=== PATIENT | female | born 1945 | race Caucasian/White ===

== ENCOUNTER 2017-09-18 15:30 | Outpatient (RCR) | payer MEDICARE, OTHER, SELFPAY ==
--- NOTE | 2017-08-14 11:21 | HP.PTEVAL_ITS ---
Patient's Visit Information ARSALAN SPENCE is a 72 year old F referred to Physical Therapy by Roscoe Kelley MD with a diagnosis of Right TKR. Date of Evaluation: 08/14/17 Physical Therapist: Joana Abreu - Visit Plan Frequency: 3x /Week Duration: 3 Weeks Plan: TKR 07/28- focus on ROM and functional mobility - Subjective Subjective: Right TKR 07/28/[address] Kelley in [place]- home after surgery- and had home health for 2 weeks. One story home with 5 stairs with HR. No problems getting in/out of the house. Has had someone but they had to go back to work. Fully I before surgery. Very active before surgery rode bike and did silver sneakers. Plans to get back to full mobility. Tried to decreased pain medication yesterday but it was painful. Pain is located in the back of the leg and along the medial side of the incision. Feels like its pulling apart. Worst: 6/10 Best: 0/10 Eases: laying down, elevating and ice. Sleep: no problems back sleeper- not elevating at night. Dully and achy pains- sharp pain with therapy. No N/T in the foot. Was having therapy every other day but she was doing it 3x a day. Ex: rocking chair, ankle pumps, hip abd, SAQ, heel slides, HR/TR, hip abduction standing, hip ext standing, squat, marching, sitting in a chair with her foot dangling and swing it. Saw Friday who took out stitches- happy with progress but wants her to bend more. PMHx: DM, HTN, glaucoma. Meds: Ultram, Percoset, Glimeprodie, Brimonidine, lisinopril, asprin, prilosec, Levemir flextouch Inj, inflatrol. - Objective Posture: FH, RS, Increased kyphosis. Gait: antalgic- decreased stance on the right LE- poor heel/toe pattern uses a straight cane in the left hand. HR/TR: able without incidence- does use UE A. Balance: SLS- able to lift hands off the table but replaces them back down- reports mild pain. Observation: well healing incision- no s/s of infection or redness (stitches out yesterday). Palpation: tender along medial and lateral joint line. The calf and knee feel tight. Functional Movement: able to swing foot onto bed without assistance. Stairs: asc/desc 8 non recip with 2 HR. ROM: 0-70 degrees of ROM with pain at end range flexion. Strength: ankle: 5/5, knee: 4/5 in available range, Hip: 4/ 5 throughout, Core: fair minus - Goals Goal 1:: Patient will be I with HEP and progression Goal Time Frame: 4-6 Weeks Goal 2:: Patient will ambulate >300 feet with a normalized gait pattern and LRD Goal Time Frame: 4-6 Weeks Goal 3:: Patient will asc/desc 8 stairs recip with 1 HR Goal Time Frame: 4-6 Weeks Goal 4:: Patient will demo 0-115 degrees of ROM in the right knee Goal Time Frame: 4-6 Weeks - Rehabilitation Potential Physical Therapy Diagnosis: Patient presents with hypmobility- she has decreased ROM, strength and muscular endurance leading to abnormal gait and decreased participation in ADL's. Rehabilitation Potential: Good - Anticipated Interventions Patient/Client Instruction: Educate patient on: Benefits of Fitness Program For the Purpose of:: To improve performance and independence with ADL's Therapeutic Exercise to Include: Strength training, Endurance training, Balance training, Agility training, Body mechanics, Postural training, Flexibilty training, Gait and locomotor training, Passive ROM, Active ROM For the Purpose of:: To improve muscle performance and motor function TENS: Yes Cryotherapy (ice pack, ice massage): Yes Thermo therapy (hot pack): Yes Ultrasound (thermal/non thermal): No For the Purpose of:: To decrease pain Thank you for the opportunity to evaluate your patient. For Medicare and Medicare HMO plans, please review the plan of care and approve it. It will need to be FAXED BACK to us at [phone] for Medicare purposes. Please let me know if there are questions or concerns regarding this plan of care. Physician Signature: Date:
--- NOTE | 2017-09-12 11:56 | HP.PTREVAL_ITS ---
Roscoe Kelley MD, It has been my pleasure to treat ARSALAN SPENCE over the last 10 visits for Right TKR. Please see the progress note below for an update on the physical therapy plan of care! Subjective: Patient reports that the aches comes and go and night is the worse and depends on activity. Saw Dr. Hall took x-rays and everything looked great. MD wants her to get outside and walk. Still swells on her and she expects this. Feels that she is 75% better. Objective/Function: Posture: FH, RS. Gait: mod antalgic- decreased lyla. ROM: 0-105 degrees. Stairs: asc/desc 8 recip with 1 HR. Strength: 5/5 throughout Plan Plan: 1 follow up visit with Marylin for I HEP in the gym for babs garza Goals Goal 1:: Patient will be I with HEP and progression Goal Time Frame: 4-6 Weeks Goal 2:: Patient will ambulate >300 feet with a normalized gait pattern and LRD Goal Time Frame: 4-6 Weeks Goal Progress: Progressing Goal 3:: Patient will asc/desc 8 stairs recip with 1 HR Goal Time Frame: 4-6 Weeks Goal Progress: Progressing Goal 4:: Patient will demo 0-115 degrees of ROM in the right knee Goal Time Frame: 4-6 Weeks Goal Progress: Progressing Anticipated Interventions Patient/Client Instruction: Educate patient on: Benefits of Fitness Program For the Purpose of:: To improve performance and independence with ADL's Therapeutic Exercise to Include: Strength training, Endurance training, Balance training, Agility training, Body mechanics, Postural training, Flexibilty training, Gait and locomotor training, Passive ROM, Active ROM For the Purpose of:: To improve muscle performance and motor function TENS: Yes Cryotherapy (ice pack, ice massage): Yes Thermo therapy (hot pack): Yes Ultrasound (thermal/non thermal): No For the Purpose of:: To decrease pain Please do not hesitate to contact me at [phone] by phone or Fax: if you have questions or concerns regarding this new plan of care! Sincerely, Joana Abreu
--- NOTE | 2017-12-15 10:41 | HP.PTDCSUM ---
HP - PT D/C Summary It has been my pleasure to treat ARSALAN SPENCE under orders from Roscoe Kelley MD, for the diagnosis of Right TKR for a total of 11 visit(s). Discharge Date: Please see the following information for a summary of their discharge status. - Subjective Subjective: pt came early to session today. - Pain right knee Pain Intensity (Out of 10): 0 - Overall Improvement % Improvement: 75 - Objective Objective/Function: Posture: FH, RS. Gait: mod antalgic- decreased lyla. ROM: 0-105 degrees. Stairs: asc/desc 8 recip with 1 HR. Strength: 5/5 throughout - Goals Goal 1:: Patient will be I with HEP and progression Goal 2:: Patient will ambulate >300 feet with a normalized gait pattern and LRD Goal Progress: Progressing Goal 3:: Patient will asc/desc 8 stairs recip with 1 HR Goal Progress: Progressing Goal 4:: Patient will demo 0-115 degrees of ROM in the right knee Goal Progress: Progressing - Plan Plan: pt indep. w/ gym program per POC. - D/C Information If there are questions or concerns regarding this patient's physical therapy, please feel free to call me at [phone]. Thank you for the referral of this patient. Sincerely, Joana Abreu
== END 2017-09-18 19:00 | disposition home or self-care (01) ==
LOC: PT 15:30
PROVIDERS: Family Provider Family Medicine; PCP Family Medicine; Visit Provider Orthopaedic Surgery Sports Medicine
DX: Z96.651 Presence of right artificial knee joint (principal)
CPT/HCPCS: 97110; 97161; 97530; G8978; G8979

== ENCOUNTER → 2017-11-20 10:39 | Outpatient (CLI) | payer MEDICARE, OTHER, SELFPAY ==
--- NOTE | 2017-11-20 10:42 | HPBI_ITS ---
MAMMOGRAPHY - BILATERAL SCREENING REASON FOR EXAM: Female, 72 years old. Routine annual screening examination. PERTINENT HISTORY: Aunt with breast cancer. TECHNIQUE: Digital bilateral breast chava (3D mammographic acquisition) in the CC and MLO projections. 2-D mediolateral oblique (MLO) and craniocaudad (CC) views of both breasts were obtained. CAD: Full Field Digital Mammography with Computer Added Detection was performed. COMPARISON: Comparison is made with prior study dated November 12, 2016 and October 10, 2015. FINDINGS: Breast Composition: There are scattered areas of fibroglandular density. There are no dominant masses or suspicious calcifications. Stable scattered calcifications in the left breast. No other significant abnormalities are identified. There has been no significant change since the prior study. HPBI/SCREENING MAMM (CAD), BILAT IMPRESSION: Stable bilateral screening mammogram. Yearly follow-up mammogram recommended. (A) ASSESSMENT CATEGORY: BIRADS Category 2: Benign. A letter regarding these results will be sent to the patient by the facility within 30 days. Approximately 10% of breast cancers are not detected by mammography. A normal mammogram should not delay biopsy of a clinically suspicious abnormality. [id number] Electronically Signed: Thomas Bhatt MD at 9:32 EDT Tel [phone], Service support ,
== END ==
PROVIDERS: Family Provider Family Medicine; PCP Family Medicine; Visit Provider Family Medicine
DX: Z12.31 Encounter for screening mammogram for malignant neoplasm of breast (principal)
CPT/HCPCS: 77063; 77067

== ENCOUNTER → 2018-06-23 12:58 | Outpatient (CLI) | payer MEDICARE, OTHER, SELFPAY ==
[2018-06-23 14:33] LABS: Hematocrit 38.5 % (37-47); Hemoglobin 12.1 g/dl (12.0-15.0); Mean Corp Hgb Conc 31.4 g/gl (32-36); Mean Corpuscular Hgb 27.8 pg (27.0-32.0); Mean Corpuscular Volume 88.5 fL (81-99); Mean Platelet Vol. 10.3 fl (6.2-12.0); Platelet Count 213 K/mm3 (150-450); RBC Distribution Width CV 14.2 % (11.6-14.6); RBC Distribution Width SD 46.1 fl (35.1-43.9); Red Blood Count 4.35 M/mm3 (4.2-5.4); White Blood Count 8.9 K/mm3 (4.4-11.0)
[2018-06-23 14:34] LABS: Scan Indicated on CBC? Y/N NO
[2018-06-23 14:47] LABS: ALB/GLOB Ratio 0.9 RATIO (0.9-2.4); AST(SGOT) 9 U/L (15-37); Alanine Aminotransfer ALT/SGPT 16 U/L (13-56); Albumin, Serum 3.5 g/dL (3.2-5.0); Alkaline Phosphatase 69 U/L (45-117); Anion Gap 7 (5-15); BUN 9 mg/dL (7-18); BUN/Creat Ratio 12.7 RATIO (10-20); Calcium,Total 8.9 mg/dL (8.5-10.1); Chloride 103 mmol/L (98-107); Creatinine, Serum 0.71 mg/dL (0.55-1.02); EST Glomerular Filtration Rate 86 mL/min (>60); Est Glom Filt Rate - Afr Amer 104 mL/min (>60); Globulin 3.7 g/dL (2.2-4.2); Glucose 130 mg/dL (74-106); Protein, Total 7.2 g/dL (6.4-8.2); Sodium Level 140 mmol/L (136-145)
== END ==
PROVIDERS: Family Provider Family Medicine; PCP Family Medicine; Referring Provider Family Medicine; Visit Provider Family Medicine
DX: M79.10 Myalgia, unspecified site (principal)
CPT/HCPCS: 36415; 80053; 85027

== ENCOUNTER 2018-08-28 10:30 | Outpatient (RCR) | payer MEDICARE, OTHER, SELFPAY ==
--- NOTE | 2018-07-10 15:44 | HP.PTEVAL_ITS ---
Patient's Visit Information ARSALAN WARNER is a 72 year old F referred to Physical Therapy by Ilia Espinosa MD with a diagnosis of L > R Adhesive Capsulitis. Date of Evaluation: 07/10/18 Physical Therapist: Han Guadarrama - Visit Plan Frequency: 1-2x /Week Duration: 6 Weeks - Subjective Subjective: Mrs. Warner is a pleasant 72 retiree who was referred to our care with a dx of left adhesive capsulitis. She states that is started about 6 m onths ago. She has seen a local chiropractor, accupunture and massage with no change in symptoms. - Pain Left Shoulder Pain Intensity (Out of 10): 6 Pain Intensity Range: 3, 6 Comment: Depends on position of shoulder - Objective MRs Warner presents in a somewhat guarded poistion as holding her purse increases pain. She had a cortisteroid injection in her right shoulder. L PROM 15 ext rotation, internal PSIS, shd flexion 140 abd = 120. MMT. L 8.7 /12 int ext. R 7.1/11 int ext generally lower than expected for a patient her age. L DTR dimished at bicep and bradioradialis. Cervical rotation ROM decreased 50%. Rotation and over pressure does not increase pain in bicep region. PMHX of cervical arthritis and R knee replacement which is clicking and giving her pain while walking. - Goals Goal 1:: Improve ROM by 10% within 2 weeks Goal Time Frame: 2 Weeks Goal 2:: Decrease resting pain to 3/10 Goal Time Frame: 2 Weeks Goal 3:: Start a light scapular strengtheing program Goal Time Frame: 6-8 Weeks - Rehabilitation Potential Physical Therapy Diagnosis: L Ad Cap Rehabilitation Potential: Good - Anticipated Interventions Patient/Client Instruction: Educate patient on: Condition, Plan of Care For the Purpose of:: To decrease pain, To increase ROM Therapeutic Exercise to Include: Strength training, Coordination, Scapular Strength/Stabilization For the Purpose of:: To decrease pain, To increase ROM, To improve muscle performance and motor function Manual Therapy Techniques to Include: Massage, Mobilization, Manipulation, Passive ROM For the Purpose of:: To decrease pain, To increase ROM, To increase flexibility/ROM, To improve endurance Ultrasound (thermal/non thermal): Yes For the Purpose of:: To decrease pain, To decrease swelling/inflammation, To increase ROM Thank you for the opportunity to evaluate your patient. For Medicare and Medicare HMO plans, please review the plan of care and approve it. It will need to be FAXED BACK to us at [phone] for Medicare purposes. Please let me know if there are questions or concerns regarding this plan of care. Physician Signature: Date:
--- NOTE | 2018-08-28 12:04 | HP.PTDCSUM ---
HP - PT D/C Summary It has been my pleasure to treat REVA SPENCE under orders from Ilia Espinosa MD, for the diagnosis of L > R Adhesive Capsulitis for a total of 13 visit(s). Discharge Date: 08/28/18 Please see the following information for a summary of their discharge status. - Subjective Subjective: I'm heading to [place] for the next couple of months. - Pain Left Shoulder Pain Intensity (Out of 10): 0 Right Shoulder Pain Intensity (Out of 10): 0 - Overall Improvement % Improvement: 80 - Objective Objective/Function: R/L Shd Flexion 166 170. R/L Abduction 170 158. R/L Ext 72 55. int r T4 T5. R/L Int - Goals Goal 1:: Improve ROM by 10% within 2 weeks Goal Progress: Goal Met Goal 2:: Decrease resting pain to 3/10 Goal 3:: Start a light scapular strengtheing program Goal Progress: Progressing - Plan Plan: Reva progressed well for her bilateral frozen shoulder. She has overly from her neck with DDD but traction has helped ischarge - D/C Information Discharge Comments: I asked Reva to reschedule with Dr Espinosa if her shoulder bother her when she comes back from [place]. If the pain is below her elbow then perhaps Dr alexx duque would be a better choice due DDD in neck If there are questions or concerns regarding this patient's physical therapy, please feel free to call me at [phone]. Thank you for the referral of this patient. Sincerely, Han Guadarrama, PT, JONE, SCS, CSCS
== END 2018-08-28 19:00 | disposition home or self-care (01) ==
LOC: PT 10:30
PROVIDERS: Family Provider Family Medicine; PCP Family Medicine; Referring Provider Orthopaedic Surgery; Visit Provider Orthopaedic Surgery
DX: M75.02 Adhesive capsulitis of left shoulder (principal)
CPT/HCPCS: 97012; 97035; 97110; 97140; 97161; 97164; G8981; G8982

== ENCOUNTER → 2019-02-02 16:41 | Outpatient (CLI) | payer MEDICARE, OTHER, SELFPAY ==
[2019-02-02 16:54] LABS: Bacteria 0 SEEN /hpf (None Seen); Mucous, Urine 0 SEEN /hpf (<or=2+)
[2019-02-02 17:42] LABS: Color, Urine Yellow (Yellow); Glucose, Dipstick 1000 mg/dl (Normal); Ketone-Dipstick 5 mg/dl (Negative); Leukocyte Esterase-Dipstick 500 /ul (Negative); Nitrite-Dipstick Negative (Negative); Occult Blood-Urine 150 /ul (Negative); Protein-Dipstick 15 mg/dl (Negative); Urine Bilirubin Dipstick Negative (Negative); Urine Clarity Cloudy (Clear); Urine Urobilinogen Normal (Normal)
[2019-02-02 19:31] LABS: Hyaline Cast 0-5 SEEN /lpf (0-5)
[2019-02-02 19:33] LABS: Calcium Oxalate Crystals Ur 1+ /hpf (<or=2+); White Blood Cells 50-100 SEEN /hpf (0-5)
[2019-02-02 19:34] LABS: Red Blood Cells-Urine 0-5 SEEN /hpf (0-5); Squamous Epithelial Cells - UA 0-5 SEEN /hpf (5-10)
== END ==
PROVIDERS: Family Provider Family Medicine; PCP Family Medicine; Referring Provider Nurse Practitioner Family; Visit Provider Nurse Practitioner Family
DX: N30.20 Other chronic cystitis without hematuria (principal)
CPT/HCPCS: 81001

== ENCOUNTER → 2019-02-16 14:29 | Outpatient (CLI) | payer MEDICARE, OTHER, SELFPAY ==
--- NOTE | 2019-02-16 14:33 | BI_ITS ---
MAMMOGRAPHY - BILATERAL SCREENING REASON FOR EXAM: Female, 73 years old. Routine annual screening examination. PERTINENT HISTORY: Aunt with breast cancer. TECHNIQUE: Digital bilateral breast miguel (3D mammographic acquisition) in the CC and MLO projections. 2-D mediolateral oblique (MLO) and craniocaudad (CC) views of both breasts were obtained. CAD: Full Field Digital Mammography with Computer Added Detection was performed. COMPARISON: Comparison is made with prior study November 20, 2017 and November 12, 2016. FINDINGS: Breast Composition: There are scattered areas of fibroglandular density. There are no dominant masses or suspicious calcifications. Stable scattered calcifications in the left breast. No other significant abnormalities are identified. There has been no significant change since the prior study. BI/SCREEN MAMM (CAD) W/MIGUEL BILAT IMPRESSION: Stable bilateral screening mammogram. Yearly follow-up mammogram recommended. (A) ASSESSMENT CATEGORY: BIRADS Category 2: Benign. A letter regarding these results will be sent to the patient by the facility within 30 days. Approximately 10% of breast cancers are not detected by mammography. A normal mammogram should not delay biopsy of a clinically suspicious abnormality. [id number] Electronically Signed: Thomas Bhatt, at 15:49 EDT , Service support ,
== END ==
PROVIDERS: Family Provider Family Medicine; PCP Family Medicine; Referring Provider Specialist; Visit Provider Specialist
DX: Z12.31 Encounter for screening mammogram for malignant neoplasm of breast (principal)
CPT/HCPCS: 77063; 77067

== ENCOUNTER → 2019-02-17 09:58 | Outpatient (CLI) | payer MEDICARE, OTHER, SELFPAY ==
--- NOTE | 2019-02-17 10:05 | RAD_ITS ---
STUDY: X-RAY - ABDOMEN/PELVIS REASON FOR EXAM: Female, 73 years old. Study of kidney stone. TECHNIQUE: Single AP view of the abdomen / pelvis. COMPARISON: None. FINDINGS: Normal visualized lung bases. There is an unremarkable bowel gas pattern. The visualized liver, spleen and kidneys are grossly normal in size. There is a left-sided pelvic calcification likely representing phlebolith. Stone in the distal ureter is doubtful. Otherwise no demonstrated abnormal calcifications in the expected courses of the ureters. There are diffuse degenerative changes of the visualized lumbar spine. RAD/Abdomen Single View IMPRESSION: Nonspecific gas pattern. Electronically Signed: Florian Rodriguez MD at 8:26 EDT Tel , Service support ,
== END ==
PROVIDERS: Family Provider Family Medicine; PCP Family Medicine; Referring Provider Nurse Practitioner Adult Health; Visit Provider Nurse Practitioner Adult Health
DX: N20.0 Calculus of kidney (principal); N30.20 Other chronic cystitis without hematuria; R31.9 Hematuria, unspecified
CPT/HCPCS: 74018; 87086

== ENCOUNTER → 2019-03-03 07:56 | Outpatient (CLI) | payer MEDICARE, OTHER, SELFPAY ==
--- NOTE | 2019-03-03 07:58 | CT_ITS ---
STUDY: CT ABDOMEN AND PELVIS WITH CONTRAST REASON FOR EXAM: Female, 73 years old. RADIATION DOSAGE (If Supplied By Facility): CTDIvol = ( 18.41 ) mGy, DLP = ( 1042.91 ) mGycm TECHNIQUE: Transaxial images were obtained from the dome of the diaphragm to the symphysis pubis without oral contrast. 100 IV Isovue 300 was administered. Sagittal and coronal images were reconstructed. Individualized dose optimization techniques were used for this CT. COMPARISON: July 20, 2015. FINDINGS: The visualized lung bases are unremarkable. The visualized portions of the heart are within normal limits. Normal liver. Normal gallbladder and extrahepatic biliary system. Normal spleen. Normal pancreas. Normal bilateral adrenal glands. Normal right kidney except to note tiny calcification upper calyx this is not obstructing it is new since the previous examination.. Normal left kidney: The previously described the cortical cyst on the right left side please did not change significantly since the previous examination and it is benign looking minimal calcification noted. Normal visualized stomach. Normal small intestine. Normal colon. The appendix is visualized and appears normal. Normal abdominal aorta. Normal inferior vena cava. Normal retroperitoneum. Normal urinary bladder. Normal abdominal wall. Severe degenerative changes involving the spine. CT/Abdomen/Pelvis WITH Contrast IMPRESSION: Tiny calcification upper aspect of the right kidney new finding since July 20, 2015. No significant change in the small cortical cyst left kidney Electronically Signed: Elio Denny, at 9:07 EDT Tel , Service support ,
[2019-03-03 08:11] LABS: CREATININE FINGERSTICK 0.8 mg/dL (0.55-1.02)
== END ==
PROVIDERS: Family Provider Family Medicine; PCP Family Medicine; Referring Provider Urology; Visit Provider Urology
DX: N28.1 Cyst of kidney, acquired (principal)
CPT/HCPCS: 74177; Q9967

== ENCOUNTER → 2019-06-10 17:17 | Outpatient (CLI) | payer MEDICARE, OTHER, SELFPAY | PROVIDERS: Family Provider Family Medicine; PCP Family Medicine | DX: N30.20 Other chronic cystitis without hematuria (principal) | CPT/HCPCS: 87077; 87086; 87088; 87186 ==

== ENCOUNTER → 2019-06-28 10:55 | Outpatient (CLI) | payer MEDICARE, OTHER, SELFPAY ==
[2019-06-26 15:39] VITALS: BMI 29.5
== END ==
PROVIDERS: Family Provider Family Medicine; PCP Family Medicine; Visit Provider Nurse Practitioner Adult Health
DX: N39.0 Urinary tract infection, site not specified (principal)
CPT/HCPCS: 87086; 87088; 87186

== ENCOUNTER → 2019-07-09 07:03 | Outpatient (CLI) | payer MEDICARE, OTHER, SELFPAY ==
[2019-06-26 15:39] VITALS: BMI 29.5
--- NOTE | 2019-07-09 07:07 | CT_ITS ---
STUDY: CT ABDOMEN AND PELVIS WITH CONTRAST REASON FOR EXAM: Female, 73 years old. Lower left abdominal pain. History of recurrent UTI. RADIATION DOSAGE (If Supplied By Facility): CTDIvol = ( 15.73 ) mGy, DLP = ( 1137.86 ) mGycm TECHNIQUE: Transaxial images were obtained from the dome of the diaphragm to the symphysis pubis with oral contrast. IV/Oral Isovue 300 100CC was administered. Sagittal and coronal images were reconstructed. Individualized dose optimization techniques were used for this CT. COMPARISON: Comparison is made with prior study dated March 03, 2019. FINDINGS: Minimal degree of increased markings at the lung bases suggestive of a mild scarring. The visualized portions of the heart are within normal limits. There is decreased attenuation of the liver consistent with steatosis. The patient is status post cholecystectomy. There are multiple benign calcified granulomata of the spleen. Normal pancreas. Normal bilateral adrenal glands. 1 cm cyst in the upper lateral aspect of the right kidney. Stable nonobstructive right intrarenal calculi. 2.1 cm cyst in the medial midportion of the left kidney. Normal visualized stomach. Normal small intestine. Diverticulosis of the right hemicolon. There are multiple colonic diverticula consistent with diverticulosis. The appendix is visualized and appears normal. There is scattered atherosclerotic calcification of the abdominal aorta, without a demonstrated aneurysm. Normal inferior vena cava. Normal retroperitoneum. Normal urinary bladder. There is absence of the uterus consistent with a prior hysterectomy. Normal abdominal wall. There are diffuse degenerative changes of the visualized lumbar spine. Straightening of the normal lumbar lordosis. CT/Abdomen/Pelvis WITH Contrast IMPRESSION: Diverticulosis of the sigmoid colon as well as the right hemicolon. Fatty infiltration of the liver. Electronically Signed: Thomas Bhatt, at 13:42 EDT , Service support ,
[2019-07-09 07:25] LABS: CREATININE FINGERSTICK 0.9 mg/dL (0.55-1.02)
== END ==
PROVIDERS: Family Provider Family Medicine; PCP Family Medicine; Referring Provider Urology; Visit Provider Urology
DX: N39.0 Urinary tract infection, site not specified (principal); K57.92 Diverticulitis of intestine, part unspecified, without perforation or abscess without bleeding; R10.9 Unspecified abdominal pain
CPT/HCPCS: 74177; Q9967

== ENCOUNTER → 2020-02-21 13:37 | Outpatient (CLI) | payer MEDICARE, OTHER, SELFPAY ==
[2019-08-24 08:16] VITALS: BMI 29.5
--- NOTE | 2020-02-21 13:40 | BI_ITS ---
MAMMOGRAPHY - BILATERAL SCREENING REASON FOR EXAM: Female, 74 years old. Routine annual screening examination. PERTINENT HISTORY: Aunt with breast cancer. TECHNIQUE: Digital bilateral breast miguel (3D mammographic acquisition) in the CC and MLO projections. 2-D mediolateral oblique (MLO) and craniocaudad (CC) views of both breasts were obtained. CAD: Full Field Digital Mammography with Computer Added Detection was performed. COMPARISON: Comparison is made with prior examination dated February 16, 2019 and November 20, 2017. FINDINGS: Breast Composition: There are scattered areas of fibroglandular density. There are no dominant masses or suspicious calcifications. No other significant abnormalities are identified. There has been no significant change since the prior study. BI/SCREEN MAMM (CAD) W/MIGUEL BILAT IMPRESSION: Stable bilateral screening mammogram. Yearly follow-up mammogram recommended. (A) ASSESSMENT CATEGORY: BIRADS Category 1: Negative. A letter regarding these results will be sent to the patient by the facility within 30 days. Approximately 10% of breast cancers are not detected by mammography. A normal mammogram should not delay biopsy of a clinically suspicious abnormality. [id number] Electronically Signed: Thomas Bhatt, at 14:34 EDT , Service support ,
== END ==
PROVIDERS: PCP Family Medicine; Referring Provider Family Medicine; Visit Provider Family Medicine
DX: Z12.31 Encounter for screening mammogram for malignant neoplasm of breast (principal)
CPT/HCPCS: 77063; 77067

== ENCOUNTER → 2020-05-11 10:02 | Outpatient (CLI) | payer MEDICARE, OTHER, SELFPAY ==
[2019-08-24 08:16] VITALS: BMI 29.5
[2020-05-11 11:16] LABS: AUTO B FLUID DILUENT BKGD CT WBC <0.1 RBC <0.01 (W<.1,R<.01); Appearance /Synovial Fluid Sl Cl (CLEAR); Color / Synovial Fluid Straw (Pale Yellow); Source / Synovial Fluid RIGHT KNEE; Viscosity / Synovial Fluid Mod. Viscous (HIGH)
[2020-05-11 11:18] LABS: Synovial Fld Mononuclear WBC # 3.655 10^3/ul; Synovial Fld Mononuclear WBC % 16.3 %; Synovial Fld Polynuclear WBC % 83.7 %
[2020-05-11 12:24] LABS: Body Fluid QC Type(s) BF1Q; Lymph 5 %; Monocyte /Synovial Fluid 5 %; Neutrophil 89 % (0-25)
[2020-05-11 12:25] LABS: Other Cell /Synovial Fluid 1 %
[2020-05-12 12:30] LABS: Pathologist Comment Reviewed
== END ==
PROVIDERS: PCP Family Medicine; Referring Provider Specialist; Visit Provider Specialist
DX: Z96.651 Presence of right artificial knee joint (principal)
CPT/HCPCS: 87015; 87070; 87075; 87101; 87116; 87205; 87206; 89050; 89051

== ENCOUNTER → 2020-06-22 15:46 | Outpatient (CLI) | payer MEDICARE, OTHER, SELFPAY ==
[2019-08-24 08:16] VITALS: BMI 29.5
== END ==
PROVIDERS: PCP Family Medicine; Referring Provider Nurse Practitioner Adult Health; Visit Provider Nurse Practitioner Adult Health
DX: N30.20 Other chronic cystitis without hematuria (principal)
CPT/HCPCS: 87086; 87088

== ENCOUNTER 2020-06-28 09:49 | Inpatient (IN) | payer MEDICARE, OTHER, SELFPAY ==
[2019-08-24 08:16] VITALS: BMI 29.5
--- NOTE | 2020-06-16 16:58 | HP.PCM_ITS ---
History and Physical History and Physical Patient Name: Reva Warner : 1945 From: GEORGE LOPEZ NP DATE OF SURGERY: 06/28/2020 SCHEDULED PROCEDURE: Right knee removal total knee arthroplasty implants with placement of antibiotic spacer HISTORY OF PRESENT ILLNESS: Preoperative history and physical exam was performed on June 12, 2020. This is a 74-year-old female who underwent a right total knee replacement by Dr. Kelley in [place] in 2017. She has been experiencing ongoing right knee pain for approximately 3 years. She describes the pain as dull. The pain is 0 on a scale of 10 at best, 3 on a scale of 10 on average and 5 on a scale of 10 at worst. She reports stiffness and tightness in the right knee. The pain is incr eased with walking, stairs, sitting and getting in and out of the car. The patient reports clicking in the right knee. Previous conservative measures consisting of rest, physical therapy and a knee brace. When initially seen in our office on May 04, [address] Owen Mary an ESR and CRP were ordered and came back elevated. Later, she followed up with Dr. Oren Casillas who did an aspiration of the right knee. The aspiration was a positive Synovasure. The patient has a medical history pertinent for hypertension, type 2 diabetes mellitus, difficulty hearing and osteoporosis. She has a history of recurrent urinary tract infections. She denies chest pain, fevers, chills, shortness of breath, difficulty breathing or night sweats. The patient currently denies a urinary tract infection. Surgical clearance will be obtained from her primary care provider Dr. Quigley. After failing conservative measures and discussing treatment options with Dr. Oren Casillas the patient does wish to proceed with a right knee removal total knee arthroplasty implants to placement of an antibiotic spacer. REVIEW OF SYSTEMS: ROS: Const: Reports weight change, but denies change in appetite and fever. CV: Denies chest pain, heart murmur and irregular heartbeat. Resp: Denies cough, pneumonia, shortness of breath, tuberculosis and wheezing. GI: Reports constipation and heartburn, but denies diarrhea, nausea, rectal itching, bloody stools and vomiting. : Denies incontinence. Musculo: Reports gait disturbance, trouble walking and weakness, but denies pain. Skin: Denies Raynaud's, history of shingles and tattoo. Neuro: Reports ambulatory dysfunction but denies dizziness, numbness/tingling and tremor. Psych: Denies anxiety, insomnia and stress. Mau/Lymph: Denies anemia, bleeding/bruising tendency and past transfusion. Reviewed, no changes. PAST MEDICAL HISTORY: Advance Care Plan: Other Directive, POA Effective Date: 05/04/2020 Other Directive, LIVING WILL Effective Date: 05/04/2020 PMH: Medical Problems: Arthritis, Diabetes, Hard of Hearing, High Blood Pressure, Osteoporosis Repeated UTI Infection - (05/19/2020) FINISHED February Accidents: Other - (1967) fall on back locked Surgical Hx: Gallbladder - (1974) Dr. Tripathi Hysterectomy - (1979) Dr. Bridges Mastectomy - (1975) Dr. Bridges Tonsillectomy - (1949) Knee Arthroscopy LT Knee Replacement RT - (2016) Bal Idheasion - (1969) @[facility] Tubes Tied - (1975) Two FT Surgeries - @[facility] - (2002) Caterac Surgery - (2011) RT Eye - (2012) Anesthesia Complications: None Assistive Devices: Glasses, Hearing Aid, Cane, Brace Reviewed and updated. SOCIAL HISTORY: SH: Marital: .Occupation: Retired.Work Status: Retired.Hand Dominance: Right- handed. Personal Habits: Cigarette Use: Never Smoked Cigarettes.Smokeless Tobacco: Never Used Smokeless Tobacco.E-Cigarette Use: Never used.Alcohol: Denies use.Drug Use: Denies Use.Enjoy Exercising: Daily. Reviewed, no changes. VITALS: Ht: 66 Wt: 185lb 4oz Wt k.029 BMI: 29.9 BP: 160/60 Pulse: 67 Resp: 22 T: 97.6 T: 36.4C ALLERGIES: Sulfa Zoloft Mavik Benicar Zocor Janumet Januvaayush Bygamaliel Ciprofloxacin - hospitalized for 2 weeks due to this medication Metformin Attale Teauin Betaxolol Doxazosin MEDICATIONS: Glimepiride 4 mg 1 po qd, Hydrochlorothiazide 25 mg 1 po qd, Lisinopril 40 mg 1 po qd, Trimethoprim 100 mg 1 po qd, Triamcinolone Acetonide 0.1 % apply to spots on lower leg twice A day, Humalog Mix 50/50 Kwikpen (50-50) 100 Unit/ML inject 25 units subcutaneously once A day, Fish Oil 1200 mg 1 po bid, Oscal 500/200 D-3 500-200 MG-Unit 1 po qd, Probiotic 1 by mouth every day, Vitamin E 400 Unit 1 po qd, Vitamin D3 50 mcg (2000 Ut) 1 po qd, Prilosec OTC prn, Vitamin B12 TR 1000 mcg 1 po qd, Tylenol 325 mg 2 po 3 times daily as needed for pain, Azo Cranberry 250-30 mg 1 po qd, Acetaminophen Congestion And Pain 5-325 mg 325 by mouth twice daily, Brimonidine Tartrate 0.15 % twice daily, Vitamin D3 Gummies Adult 25 mcg (1000 Ut) takes 2 A day, Cranberry 400 mg take by mouth, Vitamin B- 12 1000 mcg/15ML once A day, Estrace 0.1 mg/gm twice weekly for recurrent UTI, Glimepiride 4 mg take one tablet by mouth twice daily, Fiasp 100 Unit/ML take 16 units AT breakfast, 14 units AT lunch and 20 units AT dinner, Acidophilus Lactobacillus take by mouth, Methenamine Hippurate 1 gm 1 by mouth twice a day, Willmar 3 fish oil 500 mg cap take one tablet 2 times A daily, Omeprazole Magnesium take by mouth as needed, Trimethoprim 100 mg take one tablet by mouth every day AT bedtime, Vitamin E 400 Unit 1/day PRE-OP EXAM: General appearance:NORMAL Other: Eyes: Conjunctivae and lids: NORMAL Pupils: ERR Ears, Nose, Mouth, and Throat: NORMAL Other: Inspection of lips, teeth and gums: NORMAL Other: Respiratory: Assessment of respiratory effort: NORMAL Other: Auscultation of lungs: clear to auscultation no wheezes, rhonchi or rales. Cardiovascular: Auscultation of heart: regular rate and rhythm, no murmurs, gallops or rubs. Gastrointestinal: Exam of abdomen: soft, nontender, nondistended bowel sounds present. Neurological: see below Psychiatric: Orientation to time, place and person: NORMAL Other: Mood and affect: NORMAL Other: PHYSICAL EXAMINATION: The patient ambulate with an antalgic gait. Previous incision is clean, dry and intact. No redness or increased warmth. Large effusion. Range of motion: Full extension to 105 flexion. Stable to varus and valgus stress testing. Minimal translation with anterior and posterior drawer testing. 1?2 mm of opening with varus and valgus stress testing. Sensation intact to light touch. IMAGING STUDIES: 3 views of right knee including AP, lateral and sunrise views obtained on May 04, 2020 reveal a cemented posterior stabilized total knee replacement without obvious loosening, failure or fractures. IMPRESSION: 1. Infected right artificial knee joint 2. Right knee effusion 3. Hypertension 4. Type 2 diabetes mellitus 5. Hard of hearing 6. Osteoporosis 7. History of recurrent urinary tract infections PLAN: Dr. Oren Casillas did discuss and review with the patient all treatment options including surgical versus nonsurgical. The patient does wish to proceed with the above-stated procedure. Potential risk, benefits and complications of the procedure were discussed in detail including but not limited to , infection, nerve and blood vessel damage, persistent pain, numbness, tingling, paresthesia, blood clot, pulmonary embolism and requirement for possible further surgery. The patient expressed full understanding and has no further questions for the doctor. The patient does agree to proceed with the above-stated procedure and has signed the surgery consent form. Discussed with the patient the risks associated with the COVID-19 virus including the risk of exposure while at the hospital. The patient was reassured local hospitals have low infection rates and taken all necessary precautions to limit patient exposure to COVID-19. Limiting the patient's time in the hospital may decrease their exposure to COVID-19. The patient was notified that we will need to comply with any screening or testing the hospital wishes to perform and that surgery may be delayed for any positive test results. History and physical dictated in chart. This dictation was created using voice recognition software. Phonetic and/or grammatical errors may exist. ___ I have re-examined the patient. There are no clinical changes since date of exam. ___ See progress notes for changes. ___ Dictated on admission Date: Time: Signature:
--- NOTE | 2020-06-21 13:42 | EKG12_ITS ---
Test Reason : PRE OP Blood Pressure : / mmHG Vent. Rate : 069 BPM Atrial Rate : 060 BPM P-R Int : 000 ms QRS Dur : 088 ms QT Int : 418 ms P-R-T Axes : 000 027 060 degrees QTc Int : 447 ms Sinus Rhythm with PAC's Otherwise normal ECG Confirmed by PRANAV BONNER, KETTY ([id number]), senior technical editor ANNI WOODRUFF ([id number]) on 06/26/2020 8:51:55 A M Referred By: Oren Casillas Confirmed By:GERSON ROCK MD
[2020-06-21 14:52] LABS: Magnesium 1.9 mg/dL (1.6-2.6)
[2020-06-28] VITALS (12 sets, daily range): BP systolic 96–148; BP diastolic 41–71; PULSE 56–66; RESP 16–18; TEMP 36.3–36.7; O2SAT 93–100; BMI 28.8; BMI 30.5
[2020-06-28] MEDS: Celecoxib 200 MG Capsule 400 MG PO (10:39)
[2020-06-28] MEDS: Gabapentin 600 MG Tablet PO (10:39)
[2020-06-28] MEDS: Acetaminophen 500 MG Tablet 1000 MG PO ×2 (10:39→21:14)
[2020-06-28] MEDS: Lactated Ringers 1,000 ML 999 ML IV (10:45)
[2020-06-28] MEDS: Insulin Lispro 100 UNIT/ML INSULN.PEN SC ×3 (10:49→22:41)
[2020-06-28] MEDS: Cefazolin 2 GM in 0.9% Normal Saline 100 ML IV (11:07)
[2020-06-28 11:11] LABS: Bedside Glucose 299 mg/dL (70-110)
[2020-06-28] MEDS: Vancomycin IV 1,000 MG/20 ML Vial 6000 MG OPERA.SITE (12:32)
[2020-06-28] MEDS: Cefazolin 1 GM/5 ML Vial 2 GM OPERA.SITE (12:32)
--- NOTE | 2020-06-28 13:04 | PCM.OPRPT ---
Report of Operation Date of Procedure: 06/28/20 Pre-Operative Diagnosis: Right knee periprosthetic joint infection Post-Operative Diagnosis: Right knee periprosthetic joint infection Surgery/Procedure Performed:: Right total knee removal with placement of cement spacer. Right knee placement of nonbiodegradable antibiotic delivery system Description of Surgical Findings:: Cement spacer placed. Patient had florid synovitis ornament stapler: Dontrell Melendrez Type of Anesthesia:: Spinal Anesthesiologist: Santiago Gutierrez Special Medications: 2 g Ancef, 1 g TXA at incision, 1 g TXA closure, 10 mg Decadron, joint cocktail (5 mg Duramorph, 30 mL of 0.5% Ropivicaine, 1000 units of epinephrine, 30 mg of Toradol). In addition we used antibiotics in the cement 4.8 g tobramycin, 6 g vancomycin and 2 g Ancef Specimen's removed: 3 separate specimens were sent to microbiology Estimated Blood Loss (mL): 50 mL Fluids Replaced: 800 mL crystalloid Description of Procedure: Implants used: Brief history operative indications: 74-year-old F with total knee replacement in [facility]. Patient demonstrated evidence of infection. After confirming infection we agreed to proceed with explant total knee replacement with placement of antibiotic spacer which had risks which include but not limited to blood loss, DVTs, PEs, nervous damage, infection, the risk of anesthesia. Patient demonstrate understanding was able to sign informed consent. Medical clearance was obtained. Procedure: On the date of procedure patient's R lower extremity was marked in the preoperative area. The patient was then taken back to the operating room where the patient was placed on the table in the supine position. All bony prominences were identified a well-padded. Anesthesia assumed control of the C-spine and airway and remained controlled throughout the remainder of the procedure. A tourniquet was placed on the R upper thigh and the leg was prepped in a sterile fashion. The surgeon then scrubbed at this time. Upon reentering the room R lower extremity was draped in a standard orthopedic fashion. A timeout was then called and everyone agreed upon the side, the site, the procedure to be performed, patient's identity and antibiotics given. An Esmarch bandage was used to exsanguinate the extremity and the tourniquet was placed up to 250 mmHg with the knee in flexion. A midline skin incision was made using the previous incision and extending it proximally and distally to identify normal tissue planes. Medial and lateral flaps were developed appropriate releases. The standard medial parapatellar arthrotomy was made and the patella was subluxed laterally. At this time an aggressive synovectomy was performed re-creating the medial gutter first, then the suprapatellar pouch than the lateral gutter. Once this was completed the knee was flexed up an osteotome was used to remove the tibial polyethylene. The remainder of the synovium was debrided. The standard deep MCL release was done and the patella scar pad was resected and lateral releases were performed. Next our attention was directed to the femur. Where flexible osteotomes and TPS saw were used to break up the implant cement interface. This was done both medially and laterally. After this a bone tamp was used to remove the femur component from the end of the bone. This was done with minimal bone loss. At this time attention was now directed towards the proximal tibia. Possible osteotome and TPS saw were then used to break up the proximal tibia implant interface and stacked osteotomes were used to remove the tibial implant. This was done with minimal bone loss. After this was done the patella was everted and removed. Cement mantle from the patella was removed with the bur as well as the pegs. Attention was directed towards the bone ends were all membrane was removed. Knee was flexed up an extra medullary guide was used to make a tibial cleanup cut. Once bone ends were cleaned, Our attention was then turned to the femoral and tibia where the intramedullary canals were reamed to 16 mm. Because we had removed a size 4 PS distal femur we elected to use the same implant. We also trialed a polyethylene. A 22 mm polyethylene was selected. We can only use a PS. Because of this we elected to cut off the post. Once we had trialed the final components were verified and opened, 6 liters of normal saline were irrigated throughout the joint under low-pressure lavage. Then the cement was mixed in a vacuum. While we are prepping the bone to dowels for both intramedullary canals were made using cement and a third of the antibiotics. These were ruled out so they can be placed on the tibial canal. Once the wound was properly irrigated and the dowels were cured they were placed on the mid intramedullary canal. Once this was done we then used a bur to score the back of the tibia polyethylene. Once this was completed cement was mixed for the tibia. The tibia was cemented into place. We held the tibia in place until the cement cured. Once this was done we mixed cement for the femur. Both second and third batches of cement had one third of the antibiotics in it. Once we mixed the third batch of cement the femur was impacted into place. Excess cement was removed. Knee was placed in extension. Cement was allowed to cure. Once the final components were placed 3-minute Betadine lavage performed followed by a chlorhexidine lavage was used and the wound was copiously irrigated with normal saline solution and the remainder of the periarticular injection was given. The wound was closed in a layer aguila fashion using #1 vicryl interrupted sutures for the arthrotomy, 2-0 interrupted Vicryl for the subcuticular layer and aimee for final skin closure. A sterile compressive dressing was then placed. The patient was then awakened from anesthesia, transferred to [facility] and transferred to the PACU for recovery. Post op plan DVT ppx: ASA 81mg BID, thigh high compression stockings Follow up: in office in 2 weeks for wound check PT: Will be toe-touch weightbearing no flexion for 2 weeks. Followed by partial weightbearing 50% with range of motion exercises started at that time. Infection: Infectious disease will be consulted. Will follow cultures to identify an organism. Infectious disease will manage antibiotics. My physician personal banking assistant was a vital part of this case. He was important in appropriate retraction during the case, and protection of soft tissues during bony cuts. His intimate knowledge of the case and my steps aided in safe and expedient completion of the procedure as well as appropriate position of the leg during the case. He was also vital in assisting with closure under my direct supervision. Grafts/Implants Used: Josh triathlon size 4 PS distal femur, 22 mm polyethylene - Complications No intraoperative complications - Admit VTE Documentation VTE Present on Admission: No VTE Mechan Device Prophylaxis: SCD's, Thigh High PAKO Hose VTE Pharm Prophylaxis ordered?: Yes
[2020-06-28 14:16] LABS: Bedside Glucose 181 mg/dL (70-110)
--- NOTE | 2020-06-28 14:30 | RAD_ITS ---
STUDY: X-RAY - RIGHT KNEE REASON FOR EXAM: Female, 74 years old. POST OP RIGHT TKA TECHNIQUE: 2 view(s) of the knee. COMPARISON: None. FINDINGS: The patient is status post total knee replacement. There is good alignment. Cement is seen in the distal femoral and proximal tibial shafts. Postoperative soft tissue changes. RAD/Knee 1 or 2 Views IMPRESSION: Status post total knee replacement. There is good alignment. Postoperative soft tissue changes. Electronically Signed: Thomas Bhatt, at 14:53 EDT , Service support ,
[2020-06-28] MEDS: Lactated Ringers 1,000 ML 125 ML IV ×3 (14:57→20:10)
[2020-06-28] MEDS: oxyCODONE 5 MG Tablet PO (18:09)
[2020-06-28] MEDS: Glimepiride 4 MG Tablet PO (18:11)
[2020-06-28] MEDS: Aspirin 81 MG TAB.CHEW PO (18:11)
[2020-06-28 18:20] LABS: Bedside Glucose 298 mg/dL (70-110)
--- NOTE | 2020-06-28 18:57 | PCM.CONS.GEN ---
Problem List (1) Infection of right knee Status: Acute (2) Chronic UTI (urinary tract infection) Status: Chronic (3) Essential (primary) hypertension Status: Chronic (4) Diabetes type 2, uncontrolled Status: Chronic Qualifiers: Glycemic state: with hyperglycemia Qualified Code(s): E11.65 - Type 2 diabetes mellitus with hyperglycemia Reason for Consult Date of Consultation: 06/28/20 Reason for Consultation: Medical management History of Present Illness: The patient is a 74 y/o F w/ PMHx: Chronic UTIs following w/ ID and Urology, Diabetes mellitus type II, HTN, GERD, OA w/p prior R TKR with unfortunate periprosthetic join infection who presents to the [facility] on 06/28/[address] Casillas for planned right total knee removal with placement of cement spacer and nonbiodegradable antibiotic delivery system with no perioperative events per discussion with patient. Upon evaluation she notes pain is currently controlled with recent morphine administration. She does report that following surgery she is does tend to have constipation but current regimen listed in initiated per orthopedic surgery tends to work for her she notes. Operative cultures pending and patient currently noted to be on Ancef and vancomycin. Consultation requested for medical management per orthopedic surgery. Past Medical History Past Medical History (Chronic Problems): Chronic Problems (Last Reviewed 08/24/19 @ 12:[address] Jeremy Harrison MD) Diabetes (Chronic) Chronic UTI (urinary tract infection) (Chronic) Essential (primary) hypertension (Chronic) Diabetes type 2, uncontrolled (Chronic) Medical History: Medical History (Last Reviewed 08/24/19 @ 12:[address] Jeremy Harrison MD) Chronic UTI (urinary tract infection) (Chronic) N39.0 Essential (primary) hypertension (Chronic) I10 Diabetes type 2, uncontrolled (Chronic) E11.65 Glaucoma H40.9 Allergies ciprofloxacin Allergy (Severe, Verified 06/28/20 10:22) impairment of motor skills epinephrine [From Xylocaine with Epinephrine] Allergy (Unknown, Verified 06/28/20 10:22) unknown lidocaine [From Xylocaine with Epinephrine] Allergy (Unknown, Verified 06/28/20 10:22) unknown Sulfa (Sulfonamide Antibiotics) Allergy (Unknown, Verified 06/28/20 10:22) unknown metformin Adverse Reaction (Intermediate, Verified 06/28/20 10:22) loose stool, bladder infections sitagliptin [From Janumet] Adverse Reaction (Intermediate, Verified 06/28/20 10:22) loose stool batroxobin Adverse Reaction (Unknown, Verified 06/28/20 10:22) unknown exenatide [From Byetta] Adverse Reaction (Unknown, Verified 06/28/20 10:22) unknown nizatidine [From Axid] Adverse Reaction (Unknown, Verified 06/28/20 10:22) unknown sertraline [From Zoloft] Adverse Reaction (Unknown, Verified 06/28/20 10:22) unknown simvastatin [From Zocor] Adverse Reaction (Unknown, Verified 06/28/20 10:22) unknown trandolapril [From Mavik] Adverse Reaction (Unknown, Verified 06/28/20 10:22) unknown Home Medications: Ambulatory Orders Medication Instructions Recorded hydrochlorothiazide 25 mg tablet 25 mg PO DAILY #30 tab 06/25/19 lisinopril 40 mg tablet 40 mg PO DAILY #90 tab 06/25/19 acetaminophen 325 mg capsule 325 mg PO BID PRN cap 07/20/19 calcium carbonate 500 mg (1,250 1 tab PO BID 07/20/19 mg)-vitamin D3 125 unit tablet cholecalciferol (vitamin D3) 50 2,000 unit PO DAILY 07/20/19 mcg (2,000 unit) capsule cranberry 400 mg capsule 2 cap PO DAILY 07/20/19 lactobacillus combination no.8 3 3,000 mmu cells PO BID 07/20/19 billion cell capsule omega 5-xga-imy-fish oil 1,200 mg 1 cap PO BID cap 07/20/19 (144 mg-216 mg) capsule omeprazole magnesium 20 mg 20 mg PO DAILY PRN 07/20/19 tablet,delayed release trimethoprim 100 mg tablet 100 mg PO Q12H 07/20/19 vitamin E (dl, acetate) 400 unit 400 unit PO DAILY 07/20/19 capsule glimepiride 4 mg tablet 4 mg PO BID #180 tab 08/24/19 insulin lispro protamine-lispro See Rx Instructions SC TID ml 08/24/19 100 unit/mL (50-50) subcutaneous pen Cyanocobalamin (Vitamin B-12) 1,000 mcg PO DAILY 06/14/20 [Vitamin B-12] Nitrofurantoin Macrocrystals 100 mg PO Q12 06/14/20 [Macrobid] Surgical History: Surgical History (Last Reviewed 08/24/19 @ 12:[address] Jeremy Harrison MD) History of tonsillectomy Z90.89 H/O tubal ligation Z98.51 History of cataract surgery Z98.49 bilateral History of cholecystectomy Z90.49 1975 History of tonsillectomy Z90.89 1950 Surgical History: - - Tonsillectomy, hysterectomy, bilateral tubal ligation, cataract surgery, cholecystectomy, left knee arthroscopic surgery, initial right total knee replacement, recent right total knee replacement removal with antibiotic spacer and biodegradable antibiotic delivery system. 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 Jeremy Harrison MD) Mother CVA (cerebral vascular accident) Aunt Breast cancer History Items: Heart Disease, Hypertension Paternal Family History: Family History (Last Reviewed 08/24/19 @ 12:[address] Jeremy Harrison MD) Mother CVA (cerebral vascular accident) Aunt Breast cancer History Items: - - Patient notes father passed secondary to complications from an aortic aneurysm while being repaired on the operating table. Review of Systems Constitutional: Reports: Weakness, Fatigue. Denies: Anorexia, Chills, Fever, Malaise, Weight Change HEENT: Denies: Head Aches, Sinus Congestion, Sinus Drainage Cardiovascular: Denies: Chest Pain, Palpitations Respiratory: Denies: Cough, Shortness of breath at rest, Sputum production Gastrointestinal: Denies: Abdominal Pain, Nausea, Vomiting Genitourinary: Denies: Dysuria Musculoskeletal: Reports: Joint Pain, Joint stiffness, Joint swelling, Joint Tenderness, Leg Pain Skin: Denies: Rash, Wounds Neurological: Denies: Numbness, Tingling, Focal weakness Psychiatric: Denies: Anxiety, Depression, Homicidal Ideations, Suicidal Ideations Hematologic/ Lymphatic: Denies: Easy Bruising, Easy Bleeding Subjective: Patient seated upright in the bedside chair, no acute distress, notes pain currently controlled. Objective: Physical Examination: General: awake, alert, oriented x 3 and cooperative, seated upright in the medical surgical bedside chair, no acute distress. Skin: normal color, turgor, no icterus, cyanosis, status post recent right total knee replacement removal with antibiotic spacer with delivery system,: System in place. HEENT: AT/NC, EOMI, PERRLA, mildly dry MM, no carotid bruits or JVD noted. Lungs: CTA bilaterally, moderate effort, mild decrease BL bases, no rales, ronchi or wheezing. Heart: Regular rate and rhythm; no gallop, rub audible. Abdomen: soft, NTTP, ND, normal BS, no HSM. Extremities: no cyanosis, clubbing, mild bilateral ankle edema, nonpitting, peripheral pulses intact, see skin. Neurological: patient awake, alert, oriented x 3; cognitive function intact; pupils equally reactive to light and accomodation; cranial nerves II-XII grossly normal, moving all 4 extremities although limited which is expected given recent right knee surgery, strength accordingly moderately global decreased. Psychiatric: affect appears normal, no acute evidence of depressive or anxiety feelings. - Physical Exam Vitals/I&O's: Vital Signs Temp Pulse Resp BP Pulse Ox 97.8 F 60 18 133/53 H 93 06/28/20 16:43 06/28/20 15:05 06/28/20 16:43 06/28/20 16:43 06/28/20 16:43 Oxygen Flow Rate (L/min) 6 Oxygen Delivery Method Room Air Weight: 189 lb 2.506 oz Body Mass Index (BMI) 30.5 Intake and Output for Last 24 Hours 06/26/20 06/27/20 06/28/20 23:59 23:59 23:59 Intake Total 1840.75 / 1840.75 Balance 1840.75 / 1840.75 Microbiology Past 72 Hours 06/28/20 Unknown Tissue - Knee Gram Stain - Final 06/28/20 Unknown Tissue - Knee Gram Stain - Final 06/28/20 Unknown Tissue - Knee Gram Stain - Final Laboratory Results 06/28/20 10:28: POC Glucose 299 H 06/28/20 14:09: POC Glucose 181 H 06/28/20 18:07: POC Glucose 298 H Current Medications Acetaminophen (Acetaminophen 500 Mg Tablet) 1,000 mg PO Q8 [facility] Albuterol Sulfate (Albuterol 2.5 Mg/3 Ml Vial.Neb.) 2.5 mg INHALATION Q2H PRN PRN PRN Reason: Dyspnea, wheezing Aspirin (Aspirin 81 Mg Tab.Chew) 81 mg PO BIDCM [facility] Last Admin: 06/28/20 18:11 Dose: 81 mg Documented by: Dextrose (Dextrose 50%-Water 25 Gm/50 Ml Disp.Syrin) 0 gm IV X1 PRN; Protocol PRN Reason: Hypoglycemia Enteral Nutritional Formula (Ensure Surgery 237 Ml Liquid) 237 ml PO TIDCM [facility] Last Admin: 06/28/20 18:09 Dose: Not Given Documented by: Famotidine (Famotidine 20 Mg Tablet) 20 mg PO DAILY [facility] Glimepiride ([facility] 4 Mg Tablet) [facility] Last Admin: 06/28/20 18:11 Dose: 4 mg Documented by: Glucagon (Glucagon 1 Mg/Ml Syringe) 1 mg IM .X1 PRN PRN Reason: Hypoglycemia Hydrochlorothiazide (Hydrochlorothiazide 25 Mg Tablet) 25 mg PO DAILY [facility] Lactated Ringer's () 1,000 mls @ 125 mls/hr IV .Q8H [facility] Stop: 06/28/20 19:59 Last Admin: 06/28/20 18:12 Dose: 125 mls/hr Documented by: Cefazolin Sodium () 1 gm in 50 mls @ 150 mls/hr IV Q8H [facility] Stop: 06/29/20 03:19 Vancomycin IV Pharmacy to Dose (1 ea/ Sodium Chloride) 500 mls @ 250 mls/hr IV X1 PRN; Protocol PRN Reason: Rx to Dose Vancomycin HCl 2,000 mg/ (Sodium Chloride) 540 mls @ 250 mls/hr IV X1 ONE Stop: 06/28/20 20:39 Last Admin: 06/28/20 18:11 Dose: 250 mls/hr Documented by: Insulin Human Lispro (Insulin Lispro 100 Unit/Ml Insuln.Pen) 8 unit SC BREAKFAST [facility] Insulin Human Lispro (Insulin Lispro 100 Unit/Ml Insuln.Pen) 7 unit SC LUNCH [facility] Insulin Human Lispro (Insulin Lispro 100 Unit/Ml Insuln.Pen) 10 unit SC DINNER [facility] Insulin Human Lispro (Insulin Lispro 100 Unit/Ml Insuln.Pen) 0 unit SC ACHS [facility]; Protocol Insulin Human NPH (Insulin Nph Human 100 Units/Ml Pen) 8 units SC BREAKFAST [facility] Insulin Human NPH (Insulin Nph Human 100 Units/Ml Pen) 7 units SC LUNCH [facility] Insulin Human NPH (Insulin Nph Human 100 Units/Ml Pen) 10 units SC SUPPER [facility] Lisinopril (Lisinopril 40 Mg Tablet) 40 mg PO DAILY [facility] Morphine Sulfate (Morphine 2 Mg/Ml Syringe) 2 - 4 mg IV Q2H PRN PRN PRN Reason: Pain Score 6-10 Morphine Sulfate (Morphine 4 Mg/Ml Syringe) 2 - 4 mg IV Q2H PRN PRN PRN Reason: Pain Score 6-10 Nitrofurantoin Macrocrystals (Nitrofurantoin Macrocrystals 100 Mg Capsule) 100 mg PO Q12 [facility] Ondansetron HCl (Ondansetron 4 Mg/2 Ml Vial) 4 mg IV Q8H PRN PRN PRN Reason: NAUSEA Oxycodone HCl (Oxycodone 5 Mg Tablet) 5 - 10 mg PO Q4H PRN PRN PRN Reason: Pain Score 4-10 Last Admin: 06/28/20 18:09 Dose: 10 mg Documented by: Pantoprazole Sodium (Pantoprazole Sodium 20 Mg Tablet) 20 mg PO DAILY PRN PRN Reason: HEARTBURN Promethazine HCl (Promethazine 25 Mg/Ml Syringe) 12.5 mg IM Q6H PRN PRN; Protocol PRN Reason: NAUSEA/VOMITING Senna/Docusate Sodium (Senna/Docusate Sodium 1 Tablet) 2 tablet PO BID [facility] Sodium Chloride (0.9% Saline Lock 10 Ml Syringe) 10 - 40 ml IV UD PRN PRN Reason: SALINE FLUSH Assessment/Plan All Active Problems (Last Reviewed 08/24/19 @ 12:[address] Jeremy Harrison MD) Infection of right knee (Acute) The patient is a 74 y/o F w/ PMHx: Chronic UTIs following w/ ID and Urology, Diabetes mellitus type II, HTN, GERD, OA w/p prior R TKR with unfortunate periprosthetic join infection who presents to the [facility] on 06/28/[address] Casillas for planned right total knee removal with placement of cement spacer. 1. Severe Osteoarthritis s/p R TKR w/ R Knee Periprosthetic Infection following: Failed conservative therapies and treatments, admitted per Dr. Hanson for planned right total knee replacement removal with placement of a cement spacer and nonbiodegradable antibiotic delivery system, post-operative pain management, antibiotic therapies as well as bowel regimen but if necessary may escalate bowel regimen as notes history of constipation following surgical interventions, DVT Prophylaxis, PT/OT/CM per Orthopedic surgery discretion. 2. Diabetes mellitus type II: Per orthopedic surgery continued on oral home regimen, continue home insulin regimen, will change patient from regular to ADA diet, accu checks w/ ISS. 3. GERD: We will continue on famotidine. 4. Hypertension: Continue home regimen including hydrochlorothiazide with hold as needed. 5. DVT prophylaxis: SCDs, aspirin 81 mg p.o. twice daily per orthopedic surgery discretion. Inpatient E&M: [id number] [place] [id number]
[2020-06-28 19:34] LABS: Anion Gap 9 (5-15); BUN 21 mg/dL (7-18); BUN/Creat Ratio 18.1 RATIO (10-20); Calcium,Total 8.8 mg/dL (8.5-10.1); Chloride 102 mmol/L (98-107); Creatinine, Serum 1.16 mg/dL (0.55-1.02); EST Glomerular Filtration Rate 48 mL/min (>60); Est Glom Filt Rate - Afr Amer 59 mL/min (>60); Estimated Creatinine Clearance 39.83 ml/min; Glucose 307 mg/dL (74-106); Magnesium 2.3 mg/dL (1.6-2.6); Potassium 4.3 mmol/L (3.5-5.1); Sodium Level 134 mmol/L (136-145)
--- NOTE | 2020-06-28 19:44 | PCM.RX.CS ---
Consult Pharmacy has been consulted to manage selected antiobiotic: Vancomycin Type of Consult: New start Labs: Sodium 134 mmol/L (136-145) L 06/28/20 19:12 Potassium 4.3 mmol/L (3.5-5.1) 06/28/20 19:12 Chloride 102 mmol/L (98-107) 06/28/20 19:12 Carbon Dioxide 23.0 mmol/L (21.0-32.0) 06/28/20 19:12 Anion Gap 9 (5-15) 06/28/20 19:12 BUN 21 mg/dL (7-18) H 06/28/20 19:12 Creatinine 1.16 mg/dL (0.55-1.02) H 06/28/20 19:12 Est GFR (MDRD) Af Amer 59 mL/min (>60) L 06/28/20 19:12 Est GFR (MDRD) Non-Af 48 mL/min (>60) L 06/28/20 19:12 BUN/Creatinine Ratio 18.1 RATIO (-) 06/28/20 19:12 Glucose 307 mg/dL (74-106) H 06/28/20 19:12 Microbiology: Microbiology 06/28/20 Unknown Tissue - Knee Gram Stain - Final 06/28/20 Unknown Tissue - Knee Gram Stain - Final 06/28/20 Unknown Tissue - Knee Gram Stain - Final 06/21/20 13:49 Swab (Method) Nasal Screen MRSA/MSSA - Final Weight used for dosin kg Estimated Creatinine Clearance: 40 Goal Trough: 15-20 mcg/mL Pharmacy Plan for Drug Dosing: Initial vanc dose 2000mg IV x1, 750mg IV q12h thereafter per policy with trough prior to 4th dose. Pharmacy Service will continue to monitor and adjust dosing as required. Follow-Up Labs: Trough Vancomycin - 06/30 @ 0915
--- NOTE | 2020-06-28 19:58 | NURSING ---
Rx notified unable to find 1900 dose of cefazolin
[2020-06-28] MEDS: Senna/Docusate Sodium 1 Tablet 2 TABLET PO (21:14)
[2020-06-28] MEDS: Nitrofurantoin Macrocrystals 100 MG Capsule PO (21:14)
[2020-06-28] MEDS: Cefazolin 1 GM/50 ML BAG IV (21:14)
[2020-06-28 22:45] LABS: Bedside Glucose 363 mg/dL (70-110)
[2020-06-29] VITALS (8 sets, daily range): BP systolic 111–134; BP diastolic 40–59; PULSE 56–90; RESP 18; TEMP 36.4–37.3; O2SAT 89–98
[2020-06-29] MEDS: Cefazolin 1 GM/50 ML BAG IV (02:56)
[2020-06-29] MEDS: Acetaminophen 500 MG Tablet 1000 MG PO ×3 (06:15→21:49)
[2020-06-29 07:12] LABS: Hematocrit 32.5 % (37-47); Hemoglobin 9.9 g/dL (12.0-15.0); Mean Corp Hgb Conc 30.5 g/dL (32-36); Mean Corpuscular Volume 91.8 fL (81-99); Mean Platelet Vol. 10.1 fl (6.2-12.0); Platelet Count 292 K/mm3 (150-450); RBC Distribution Width CV 14.1 % (11.6-14.6); RBC Distribution Width SD 47.7 fl (35.1-43.9); Red Blood Count 3.54 M/mm3 (4.2-5.4); White Blood Count 22.8 K/mm3 (4.4-11.0)
[2020-06-29 07:34] LABS: Anion Gap 8 (5-15); BUN 25 mg/dL (7-18); BUN/Creat Ratio 19.8 RATIO (10-20); Calcium,Total 8.6 mg/dL (8.5-10.1); Chloride 104 mmol/L (98-107); Creatinine, Serum 1.26 mg/dL (0.55-1.02); EST Glomerular Filtration Rate 44 mL/min (>60); Est Glom Filt Rate - Afr Amer 53 mL/min (>60); Estimated Creatinine Clearance 36.67 ml/min; Glucose 268 mg/dL (74-106); Potassium 4.3 mmol/L (3.5-5.1); Sodium Level 135 mmol/L (136-145)
--- NOTE | 2020-06-29 07:34 | PCM.PN.HOSP ---
Patient Problems: Active and Suspected Problems (Last Reviewed 08/24/19 @ 12:[address] Jeremy Harrison MD) Infection of right knee (Acute) Reason for Visit: Follow-up for periprosthetic joint infection. Objective: Seen and examined. Patient denies any chronic heart disease or lung disease. Heart rate and blood pressure are controlled. No fever or leukocytosis 22.8 thousand. Physical exam General: Alert, Oriented x3, Cooperative HEENT: Atraumatic, PERRLA, EOMI, Normocephalic Oral: No Gingival or Mucosal Lesions/ Ulcerations Neck: Supple, No JVD, Negative Carotid Bruits Lungs: Air entry equal in bilateral lung bases. No crepitation/rhonchi Cardiovascular: Regular rate, Regular Rhythm, Normal S1, Normal S2, No murmurs Abdomen: Bowel Sounds Present, Soft, Non Tender, Non-Distended : No renal angle tenderness. No suprapubic tenderness. Extremities: No edema, Capillary Refill Less than 3 Seconds Skin: No rashes, No breakdown Musculoskeletal: Right knee on immobilizer. Surgical dressing dry. No Tenderness to Palpation of other joints or Extremities Neurological: Cranial nerves II-XII grossly intact, Deep Tendon Reflexes 2+/4 and Symmetrical, Neuro grossly intact Psych/Mental Status: Normal Affect, Appropriate. Vitals/I&O's: Vital Signs Temp Pulse Resp BP Pulse Ox 97.5 F L 58 L 18 111/57 L 98 06/29/20 02:50 06/29/20 02:50 06/29/20 02:50 06/29/20 02:50 06/29/20 02:50 Oxygen Flow Rate (L/min) 2 Oxygen Delivery Method Nasal Cannula Weight: 189 lb 2.506 oz Body Mass Index (BMI) 30.5 Intake and Output for Last 24 Hours 06/27/20 06/28/20 06/29/20 23:59 23:59 23:59 Intake Total 3680.75 / 3680.75 1750 / 1750 Output Total 300 / 300 1550 / 1550 Balance 3380.75 / 3380.75 200 / 200 Microbiology Past 72 Hours 06/28/20 Unknown Tissue - Knee Gram Stain - Final 06/28/20 Unknown Tissue - Knee Gram Stain - Final 06/28/20 Unknown Tissue - Knee Gram Stain - Final Laboratory Results 06/28/20 10:28: POC Glucose 299 H 06/28/20 14:09: POC Glucose 181 H 06/28/20 18:07: POC Glucose 298 H 06/28/20 19:12: Sodium 134 L, Potassium 4.3, Chloride 102, Carbon Dioxide 23.0, Anion Gap 9, BUN 21 H, Creatinine 1.16 H, Estim Creat Clear Calc 39.83, Est GFR (MDRD) Af Amer 59 L, Est GFR (MDRD) Non-Af 48 L, BUN/Creatinine Ratio 18.1, Glucose 307 H, Calcium 8.8, Magnesium 2.3 06/28/20 22:39: POC Glucose 363 H 06/29/20 06:50: WBC 22.8 H, RBC 3.54 L, Hgb 9.9 L, Hct 32.5 L, MCV 91.8, MCH 28.0, MCHC 30.5 L, RDW Std Deviation 47.7 H, RDW Coeff of Rainer 14.1, Plt Count 292, MPV 10.1 06/29/20 06:50: Sodium Pending, Potassium Pending, Chloride Pending, Carbon Dioxide Pending, Anion Gap Pending, BUN Pending, Creatinine Pending, Est GFR (MDRD) Af Amer Pending, Est GFR (MDRD) Non-Af Pending, BUN/Creatinine Ratio Pending, Glucose Pending, Calcium Pending Current Medications Acetaminophen (Acetaminophen 500 Mg Tablet) 1,000 mg PO Q8 [facility] Last Admin: 06/29/20 06:15 Dose: 1,000 mg Documented by: Albuterol Sulfate (Albuterol 2.5 Mg/3 Ml Vial.Neb.) 2.5 mg INHALATION Q2H PRN PRN PRN Reason: Dyspnea, wheezing Aspirin (Aspirin 81 Mg Tab.Chew) 81 mg PO BIDCM [facility] Last Admin: 06/28/20 18:11 Dose: 81 mg Documented by: Dextrose (Dextrose 50%-Water 25 Gm/50 Ml Disp.Syrin) 0 gm IV X1 PRN; Protocol PRN Reason: Hypoglycemia Enteral Nutritional Formula (Ensure Surgery 237 Ml Liquid) 237 ml PO TIDCM [facility] Last Admin: 06/28/20 18:09 Dose: Not Given Documented by: Famotidine (Famotidine 20 Mg Tablet) 20 mg PO DAILY [facility] Gl[facility]piride ([facility] 4 Mg [facility]) [facility] Last Admin: 06/28/20 18:11 Dose: 4 mg Documented by: Glucagon (Glucagon 1 Mg/Ml Syringe) 1 mg IM .X1 PRN PRN Reason: Hypoglycemia Hydrochlorothiazide (Hydrochlorothiazide 25 Mg Tablet) 25 mg PO DAILY [facility] Vancomycin IV Pharmacy to Dose (1 ea/ Sodium Chloride) 500 mls @ 250 mls/hr IV X1 PRN; Protocol PRN Reason: Rx to Dose Vancomycin HCl 750 mg/ Sodium (Chloride) 265 mls @ 250 mls/hr IV Q12H [facility] Insulin Human Lispro (Insulin Lispro 100 Unit/Ml Insuln.Pen) 8 unit SC BREAKFAST [facility] Insulin Human Lispro (Insulin Lispro 100 Unit/Ml Insuln.Pen) 7 unit SC LUNCH [facility] Insulin Human Lispro (Insulin Lispro 100 Unit/Ml Insuln.Pen) 10 unit SC DINNER [facility] Insulin Human Lispro (Insulin Lispro 100 Unit/Ml Insuln.Pen) 0 unit SC [facility]; Protocol Last Admin: 06/28/20 22:41 Dose: 6 u Documented by: Insulin Human NPH (Insulin Nph Human 100 Units/Ml Pen) 8 units SC BREAKFAST [facility] Insulin Human NPH (Insulin Nph Human 100 Units/Ml Pen) 7 units SC LUNCH [facility] Insulin Human NPH (Insulin Nph Human 100 Units/Ml Pen) 10 units SC SUPPER [facility] Lisinopril (Lisinopril 40 Mg Tablet) 40 mg PO DAILY [facility] Morphine Sulfate (Morphine 2 Mg/Ml Syringe) 2 - 4 mg IV Q2H PRN PRN PRN Reason: Pain Score 6-10 Morphine Sulfate (Morphine 4 Mg/Ml Syringe) 2 - 4 mg IV Q2H PRN PRN PRN Reason: Pain Score 6-10 Nitrofurantoin Macrocrystals (Nitrofurantoin Macrocrystals 100 Mg Capsule) 100 mg PO Q12 [facility] Last Admin: 06/28/20 21:14 Dose: 100 mg Documented by: Ondansetron HCl (Ondansetron 4 Mg/2 Ml Vial) 4 mg IV Q8H PRN PRN PRN Reason: NAUSEA Oxycodone HCl (Oxycodone 5 Mg Tablet) 5 - 10 mg PO Q4H PRN PRN PRN Reason: Pain Score 4-10 Last Admin: 06/28/20 18:09 Dose: 10 mg Documented by: Pantoprazole Sodium (Pantoprazole Sodium 20 Mg Tablet) 20 mg PO DAILY PRN PRN Reason: HEARTBURN Promethazine HCl (Promethazine 25 Mg/Ml Syringe) 12.5 mg IM Q6H PRN PRN; Protocol PRN Reason: NAUSEA/VOMITING Senna/Docusate Sodium (Senna/Docusate Sodium 1 Tablet) 2 tablet PO BID [facility] Last Admin: 06/28/20 21:14 Dose: 2 tablet Documented by: Sodium Chloride (0.9% Saline Lock 10 Ml Syringe) 10 - 40 ml IV UD PRN PRN Reason: SALINE FLUSH Medical Necessity - Tobacco Use Smoking Status: Never smoker Tobacco Use: Non-smoker Assessment/Plan All Active Problems (Last Reviewed 08/24/19 @ 12:[address] Jeremy Harrison MD) Infection of right knee (Acute) The patient is a 74 y/o F with history of chronic UTIs following w/ ID and Urology, Diabetes mellitus type II, HTN, GERD, degenerative joint disease with history of prior TKR with periprosthetic join infection was admitted on 06/28/[address] Casillas for planned right total knee removal with placement of cement spacer. 1. Severe Osteoarthritis status post right TKR with right periprosthetic joint infection: Patient had right total knee removal with placement of segmental spacer and nonbiodegradable antibiotic delivery system. On IV vancomycin and ceftriaxone. Seen by ID. Tissue culture from surgery are pending. Final antibiotic after culture growth. Incentive spirometry. On stool softener for constipation. PT OT and case nurse consult. 2. Diabetes mellitus type II: continued on oral home regimen, continue home insulin regimen, ADA diet, accu checks w/ ISS. 3. GERD: continue on famotidine. 4. Hypertension: Continue home regimen including hydrochlorothiazide 5. DVT prophylaxis: SCDs, aspirin 81 mg p.o. twice daily per orthopedic surgery discretion. Inpatient E&M: [id number] [facility] L2
[2020-06-29 07:45] LABS: Bedside Glucose 242 mg/dL (70-110)
[2020-06-29] MEDS: Insulin Lispro 100 UNIT/ML INSULN.PEN 8 UNIT SC (07:46)
[2020-06-29] MEDS: Insulin Lispro 100 UNIT/ML INSULN.PEN SC ×3 (07:47→21:50)
[2020-06-29] MEDS: Aspirin 81 MG TAB.CHEW PO ×2 (07:49→17:05)
[2020-06-29] MEDS: Glimepiride 4 MG Tablet PO ×2 (07:49→17:05)
[2020-06-29] MEDS: Nitrofurantoin Macrocrystals 100 MG Capsule PO ×2 (09:59→21:49)
[2020-06-29] MEDS: 0.9% Saline Lock 10 ML Syringe IV ×2 (09:59→21:41)
[2020-06-29] MEDS: hydroCHLOROthiazide 25 MG Tablet PO (10:00)
[2020-06-29] MEDS: Lisinopril 40 MG Tablet PO (10:00)
[2020-06-29] MEDS: Famotidine 20 MG Tablet PO (10:00)
[2020-06-29] MEDS: Senna/Docusate Sodium 1 Tablet 2 TABLET PO ×2 (10:00→21:49)
--- NOTE | 2020-06-29 11:38 | PCM.PN.ORT ---
Patient Problems: Active and Suspected Problems (Last Reviewed 08/24/19 @ 12:[address] Jeremy Harrison MD) Infection of right knee (Acute) Subjective: The patient was sitting in chair upon examination. Patient denies chest pain, shortness of breath, dizziness, lightheadedness, nausea, vomiting or calf pain. Pain is controlled on medications. No adverse events overnight. Patient denies any complaints. She states she is doing well. Cultures are still pending. Infectious disease has been consulted for management of antibiotics and PICC line. The patient stated Dr. Bowden did see the patient today and discussed the placement of the PICC in and awaiting results of the cultures in order to determine the appropriate antibiotics. Objective: Vital signs stable. Patient is afebrile. Patient is able to plantar flex and dorsiflex actively. Sensation is intact to light touch to saphenous, sural, superficial and deep peroneal and tibial nerve distributions. Dressing is clean, dry and intact. Negative Homans bilaterally. Negative signs and symptoms of DVT. - Physical Exam Vitals/I&O's: Vital Signs Temp Pulse Resp BP Pulse Ox 97.7 F L 57 L 18 134/59 H 96 06/29/20 07:57 06/29/20 07:57 06/29/20 07:57 06/29/20 07:57 06/29/20 07:57 Oxygen Flow Rate (L/min) 2 Oxygen Delivery Method Room Air Weight: 85.8 kg Body Mass Index (BMI) 30.5 Intake and Output for Last 24 Hours 06/27/20 06/28/20 06/29/20 23:59 23:59 23:59 Intake Total 3680.75 / 3680.75 1750 / 1750 Output Total 300 / 300 1550 / 1550 Balance 3380.75 / 3380.75 200 / 200 General: Alert, Oriented x3, Cooperative Extremities: No Calf Tenderness Psych/Mental Status: Normal Affect, Appropriate Microbiology Past 72 Hours 06/28/20 Unknown Tissue - Knee Gram Stain - Final 06/28/20 Unknown Tissue - Knee Gram Stain - Final 06/28/20 Unknown Tissue - Knee Gram Stain - Final Laboratory Results 06/28/20 14:09: POC Glucose 181 H 06/28/20 18:07: POC Glucose 298 H 06/28/20 19:12: Sodium 134 L, Potassium 4.3, Chloride 102, Carbon Dioxide 23.0, Anion Gap 9, BUN 21 H, Creatinine 1.16 H, Estim Creat Clear Calc 39.83, Est GFR (MDRD) Af Amer 59 L, Est GFR (MDRD) Non-Af 48 L, BUN/Creatinine Ratio 18.1, Glucose 307 H, Calcium 8.8, Magnesium 2.3 06/28/20 22:39: POC Glucose 363 H 06/29/20 06:50: WBC 22.8 H, RBC 3.54 L, Hgb 9.9 L, Hct 32.5 L, MCV 91.8, MCH 28.0, MCHC 30.5 L, RDW Std Deviation 47.7 H, RDW Coeff of Rainer 14.1, Plt Count 292, MPV 10.1 06/29/20 06:50: Sodium 135 L, Potassium 4.3, Chloride 104, Carbon Dioxide 23.0, Anion Gap 8, BUN 25 H, Creatinine 1.26 H, Estim Creat Clear Calc 36.67, Est GFR (MDRD) Af Amer 53 L, Est GFR (MDRD) Non-Af 44 L, BUN/Creatinine Ratio 19.8, Glucose 268 H, Calcium 8.6 06/29/20 07:31: POC Glucose 242 H Current Medications Acetaminophen (Acetaminophen 500 Mg Tablet) 1,000 mg PO Q8 [facility] Last Admin: 06/29/20 06:15 Dose: 1,000 mg Documented by: Albuterol Sulfate (Albuterol 2.5 Mg/3 Ml Vial.Neb.) 2.5 mg INHALATION Q2H PRN PRN PRN Reason: Dyspnea, wheezing Aspirin (Aspirin 81 Mg Tab.Chew) 81 mg PO BIDCM [facility] Last Admin: 06/29/20 07:49 Dose: 81 mg Documented by: Dextrose (Dextrose 50%-Water 25 Gm/50 Ml Disp.Syrin) 0 gm IV X1 PRN; Protocol PRN Reason: Hypoglycemia Enteral Nutritional Formula (Ensure Surgery 237 Ml Liquid) 237 ml PO TIDCM [facility] Last Admin: 06/29/20 07:49 Dose: Not Given Documented by: Famotidine (Famotidine 20 Mg Tablet) 20 mg PO DAILY [facility] Last Admin: 06/29/20 10:00 Dose: 20 mg Documented by: Glimepiride ([facility] 4 Mg [facility]) [facility] Admin: 06/29/20 07:49 Dose: 4 mg Documented by: Glucagon (Glucagon 1 Mg/Ml Syringe) 1 mg IM .X1 PRN PRN Reason: Hypoglycemia Hydrochlorothiazide (Hydrochlorothiazide 25 Mg Tablet) 25 mg PO DAILY [facility] Last Admin: 06/29/20 10:00 Dose: 25 mg Documented by: Vancomycin IV Pharmacy to Dose (1 ea/ Sodium Chloride) 500 mls @ 250 mls/hr IV X1 PRN; Protocol PRN Reason: Rx to Dose Vancomycin HCl 750 mg/ Sodium (Chloride) 265 mls @ 250 mls/hr IV Q12H [facility] Last Admin: 06/29/20 09:59 Dose: 250 mls/hr Documented by: Ceftriaxone Sodium 2 gm/ (Sodium Chloride) 50 mls @ 100 mls/hr IV Q24 [facility] Insulin Human Lispro (Insulin Lispro 100 Unit/Ml Insuln.Pen) 8 unit SC BREAKFAST [facility] Last Admin: 06/29/20 07:46 Dose: 8 units Documented by: Insulin Human Lispro (Insulin Lispro 100 Unit/Ml Insuln.Pen) 7 unit SC LUNCH [facility] Insulin Human Lispro (Insulin Lispro 100 Unit/Ml Insuln.Pen) 10 unit SC DINNER [facility] Insulin Human Lispro (Insulin Lispro 100 Unit/Ml Insuln.Pen) 0 unit SC ACHS [facility]; Protocol Last Admin: 06/29/20 07:47 Dose: 3 u Documented by: Insulin Human NPH (Insulin Nph Human 100 Units/Ml Pen) 8 units SC BREAKFAST [facility] Last Admin: 06/29/20 07:48 Dose: Not Given Documented by: Insulin Human NPH (Insulin Nph Human 100 Units/Ml Pen) 7 units SC LUNCH [facility] Last Admin: 06/29/20 11:36 Dose: Not Given Documented by: Insulin Human NPH (Insulin Nph Human 100 Units/Ml Pen) 10 units SC SUPPER [facility] Lisinopril (Lisinopril 40 Mg Tablet) 40 mg PO DAILY [facility] Last Admin: 06/29/20 10:00 Dose: 40 mg Documented by: Morphine Sulfate (Morphine 2 Mg/Ml Syringe) 2 - 4 mg IV Q2H PRN PRN PRN Reason: Pain Score 6-10 Morphine Sulfate (Morphine 4 Mg/Ml Syringe) 2 - 4 mg IV Q2H PRN PRN PRN Reason: Pain Score 6-10 Nitrofurantoin Macrocrystals (Nitrofurantoin Macrocrystals 100 Mg Capsule) 100 mg PO Q12 [facility] Last Admin: 06/29/20 09:59 Dose: 100 mg Documented by: Ondansetron HCl (Ondansetron 4 Mg/2 Ml Vial) 4 mg IV Q8H PRN PRN PRN Reason: NAUSEA Oxycodone HCl (Oxycodone 5 Mg Tablet) 5 - 10 mg PO Q4H PRN PRN PRN Reason: Pain Score 4-10 Last Admin: 06/28/20 18:09 Dose: 10 mg Documented by: Pantoprazole Sodium (Pantoprazole Sodium 20 Mg Tablet) 20 mg PO DAILY PRN PRN Reason: HEARTBURN Promethazine HCl (Promethazine 25 Mg/Ml Syringe) 12.5 mg IM Q6H PRN PRN; Protocol PRN Reason: NAUSEA/VOMITING Senna/Docusate Sodium (Senna/Docusate Sodium 1 Tablet) 2 tablet PO BID [facility] Last Admin: 06/29/20 10:00 Dose: 2 tablet Documented by: Sodium Chloride (0.9% Saline Lock 10 Ml Syringe) 10 - 40 ml IV UD PRN PRN Reason: SALINE FLUSH Last Admin: 06/29/20 09:59 Dose: 10 ml Documented by: Medical Necessity - Tobacco Use Smoking Status: Never smoker Tobacco Use: Non-smoker Assessment/Plan All Active Problems (Last Reviewed 08/24/19 @ 12:[address] Jeremy Harrison MD) Infection of right knee (Acute) 1. 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 2. Continue pain medications: Tylenol and OxyIR 3. DVT prophylaxis: Aspirin 81 mg twice daily 4. PT/OT: The patient will continue in the knee immobilizer at all times. Toe-touch weightbearing on the right lower extremity with no flexion for 2 weeks. This will be followed by partial weightbearing 50% with range of motion exercises started at that time. 5. H & H: 9.9/32.5, patient is asymptomatic. 6. WBCs: 22.8, patient is afebrile. Decadron was given intraoperatively. 7. Encouraged incentive spirometry. 8. Continue postoperative medical management per medicine. 9. Consultation with infectious disease: Cultures are currently pending. Plan will be for placement of PICC line and IV antibiotics per infectious disease when appropriate. 10. Disposition: The plan will be for discharge in several days once we have obtained cultures and infectious disease has determined the appropriate antibiotics.
[2020-06-29] MEDS: Insulin Lispro 100 UNIT/ML INSULN.PEN 7 UNIT SC (11:48)
[2020-06-29 12:16] LABS: Bedside Glucose 196 mg/dL (70-110)
--- NOTE | 2020-06-29 14:10 | CASEMGMT ---
RN CM Face to Face with patient for initial transition planning/care coordination assessment. RN CM introduced self and role at [facility]. Patient sitting in chair, alert and oriented, at bedside. Patient willing to participate in assessment and is able to answer all questions appropriately. Care providers, pharmacy, and demographics verified. Patient wishes to discharge to TCU for therapy and IV ATBS. Patient states she has no further needs or concerns at this time. CM to follow for discharge planning needs that may arise. PCP: Soraida Specialists: rocky Casillas; Grabiel Harrison; Yuliya, urologist Preferred Pharmacy: [facility] Insurance: [facility], [place] Prescription Benefit: yes Living Will/HPOA: yes Ezequiel Warner LNOK: Living Arrangements: Patient lives with in a 1 story home with 5 steps and railing to enter the home. Patient was independent prior to discharge. Transportation: self/ DME/HHC: Patient has raised toilet seat, cane, walker, and grab bars at home. Patient has been to [facility] in the past. Referral made to TCU at this time. TCU is reviewing referral. SABINE Mcknight updated regarding referral to TCU. Disposition Plan: TCU pending acceptance Maren KRAFT, RN, CM
[2020-06-29] MEDS: Calcium Carbonate 500 MG Tablet PO ×2 (15:03→23:07)
--- NOTE | 2020-06-29 15:46 | CON.PCM_ITS ---
Problem List (1) Infection of right knee Status: Acute Reason for Consult: PJI Consulted by: Dr. Casillas History of Present Illness: The patient is a 74 year old F with R knee replacement about 3 years ago, developed knee soreness about 6 months ago. No fever, no n/v/d, no redness/swelling/drainage. Was on cefdinir ending 06/02/20 and then another po bid antibiotic ending 06/20/20 for recurrent uti. Saw Dr. Casillas, aspiration done, synovasure was (+), taken to OR yesterday for spacer placement. Pain controlled today, no fever. Full ROS performed and neg except as noted above. - Medical History Past Medical History (Chronic Problems): Chronic Problems (Last Reviewed 08/24/19 @ 12:[address] Jeremy Harrison MD) Diabetes (Chronic) Chronic UTI (urinary tract infection) (Chronic) Essential (primary) hypertension (Chronic) Diabetes type 2, uncontrolled (Chronic) Allergies/Adverse Reactions: Allergies ciprofloxacin Allergy (Severe, Verified 06/28/20 10:22) impairment of motor skills epinephrine [From Xylocaine with Epinephrine] Allergy (Unknown, Verified 06/28/20 10:22) unknown lidocaine [From Xylocaine with Epinephrine] Allergy (Unknown, Verified 06/28/20 10:22) unknown Sulfa (Sulfonamide Antibiotics) Allergy (Unknown, Verified 06/28/20 10:22) unknown metformin Adverse Reaction (Intermediate, Verified 06/28/20 10:22) loose stool, bladder infections sitagliptin [From Janumet] Adverse Reaction (Intermediate, Verified 06/28/20 10:22) loose stool batroxobin Adverse Reaction (Unknown, Verified 06/28/20 10:22) unknown exenatide [From Byetta] Adverse Reaction (Unknown, Verified 06/28/20 10:22) unknown nizatidine [From Axid] Adverse Reaction (Unknown, Verified 06/28/20 10:22) unknown sertraline [From Zoloft] Adverse Reaction (Unknown, Verified 06/28/20 10:22) unknown simvastatin [From Zocor] Adverse Reaction (Unknown, Verified 06/28/20 10:22) unknown trandolapril [From Mavik] Adverse Reaction (Unknown, Verified 06/28/20 10:22) unknown Home Medications: Ambulatory Orders Medication Instructions Recorded hydrochlorothiazide 25 mg tablet 25 mg PO DAILY #30 tab 06/25/19 lisinopril 40 mg tablet 40 mg PO DAILY #90 tab 06/25/19 acetaminophen 325 mg capsule 325 mg PO BID PRN cap 07/20/19 calcium carbonate 500 mg (1,250 1 tab PO BID 07/20/19 mg)-vitamin D3 125 unit tablet cholecalciferol (vitamin D3) 50 2,000 unit PO DAILY 07/20/19 mcg (2,000 unit) capsule cranberry 400 mg capsule 2 cap PO DAILY 07/20/19 lactobacillus combination no.8 3 3,000 mmu cells PO BID 07/20/19 billion cell capsule omega 5-ebf-atc-fish oil 1,200 mg 1 cap PO BID cap 07/20/19 (144 mg-216 mg) capsule omeprazole magnesium 20 mg 20 mg PO DAILY PRN 07/20/19 tablet,delayed release trimethoprim 100 mg tablet 100 mg PO Q12H 07/20/19 vitamin E (dl, acetate) 400 unit 400 unit PO DAILY 07/20/19 capsule glimepiride 4 mg tablet 4 mg PO BID #180 tab 08/24/19 insulin lispro protamine-lispro See Rx Instructions SC TID ml 08/24/19 100 unit/mL (50-50) subcutaneous pen Cyanocobalamin (Vitamin B-12) 1,000 mcg PO DAILY 06/14/20 [Vitamin B-12] Nitrofurantoin Macrocrystals 100 mg PO Q12 06/14/20 [Macrobid] - Social History SMOKING STATUS:: Never smoker Vital Signs Temp Pulse Resp BP Pulse Ox 97.7 F L 57 L 18 134/59 H 96 06/29/20 07:57 06/29/20 07:57 06/29/20 07:57 06/29/20 07:57 06/29/20 07:57 Oxygen Flow Rate (L/min) 2 Oxygen Delivery Method Room Air Weight: 85.8 kg Body Mass Index (BMI) 30.5 Microbiology Past 72 Hours 06/28/20 Unknown Gram Stain - Final Tissue - Knee Wound Culture - Preliminary No growth-Final to follow 06/28/20 Unknown Gram Stain - Final Tissue - Knee Wound Culture - Preliminary No growth-Final to follow 06/28/20 Unknown Gram Stain - Final Tissue - Knee Wound Culture - Preliminary No growth-Final to follow Laboratory Tests Past 24 Hrs 06/28/20 06/29/20 06/29/20 19:12 06:50 06:50 WBC 22.8 H RBC 3.54 L Hgb 9.9 L Hct 32.5 L MCV 91.8 MCH 28.0 MCHC 30.5 L RDW Std Deviation 47.7 H RDW Coeff of Rainer 14.1 Plt Count 292 MPV 10.1 Sodium 134 L 135 L Potassium 4.3 4.3 Chloride 102 104 Carbon Dioxide 23.0 23.0 Anion Gap 9 8 BUN 21 H 25 H Creatinine 1.16 H 1.26 H Estim Creat Clear Calc 39.83 36.67 Est GFR (MDRD) Af Amer 59 L 53 L Est GFR (MDRD) Non-Af 48 L 44 L BUN/Creatinine Ratio 18.1 19.8 Glucose 307 H 268 H Calcium 8.8 8.6 Magnesium 2.3 - Other Studies Radiology: [] reviewed Other Studies: [] Route of nutrition/ use of supplements: [] Nutritional Intake: [] IV Site: [] Morrell Catheter: [] - Physical Exam General: Alert, Oriented x3, Cooperative, No apparent distress HEENT: Atraumatic, PERRLA, EOMI Neck: Supple, No Nodes Lungs: Clear to auscultation, Normal air movement Cardiovascular: Regular rate, Regular Rhythm, No murmurs Abdomen: Soft, Non Tender, Non-Distended Extremities: No edema Skin: Incision - RLE wrapped IV Site: Peripheral, without redness Musculoskeletal: No Tenderness to Palpation of Joints or Extremities Neurological: Cranial nerves II-XII grossly intact - Assessment/Plan Antibiotics: [] Assessment/Plan: [] Active and Suspected Problems (Last Reviewed 08/24/19 @ 12:[address] 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 Casillas. Surg cx pending. Will cover with vanc/ceftriaxone for now, will order picc. Plan will be for 6 weeks iv abx at discharge. Will follow, thank you, d/w correctional counselor/case manager
[2020-06-29 16:30] LABS: Bedside Glucose 129 mg/dL (70-110)
[2020-06-29] MEDS: Insulin Lispro 100 UNIT/ML INSULN.PEN 10 UNIT SC (17:06)
--- NOTE | 2020-06-29 19:33 | EKG12_ITS ---
Test Reason : PRE OP Blood Pressure : / mmHG Vent. Rate : 061 BPM Atrial Rate : 060 BPM P-R Int : 128 ms QRS Dur : 084 ms QT Int : 426 ms P-R-T Axes : 000 030 045 degrees QTc Int : 428 ms Sinus rhythm with Premature supraventricular complexes Confirmed by GERARDO BONNER, DESI ([id number]), supervising editor trailer ANNI WOODRUFF ([id number]) on 07/03/2020 12:54:36 PM Referred By: Oren Casillas Confirmed By:DESI CARRILLO MD
[2020-06-29 21:55] LABS: Bedside Glucose 243 mg/dL (70-110)
[2020-06-30 01:35] VITALS: BP 113/62; PULSE 58; RESP 16; TEMP 36.6; O2SAT 96
[2020-06-30 04:30] VITALS: BP 137/55; PULSE 59; RESP 16; TEMP 36.5; O2SAT 97
--- NOTE | 2020-06-30 06:22 | PN.ORTHO_ITS ---
Patient Problems: Active and Suspected Problems (Last Reviewed 08/24/19 @ 12:[address] Jeremy Harrison MD) Infection of right knee (Acute) Subjective: The patient was sitting in bed upon examination. Patient denies any chest pain, shortness of breath, dizziness, lightheadedness, nausea or vomiting, or calf pain. Pain is controlled on medications. Patient's pain is been well controlled. She is only using Tylenol for the past day. We are currently following cultures and infectious diseases on board. Patient has already had PICC line established. Plan is for patient to go to the transitional care unit when ready for discharge. Per nursing the hospitalist found new irregular heartbeat and EKG was ordered. This was consistent with PACs and patient is on telemetry. She denies any chest pain. Objective: Vital signs stable and afebrile. Patient is able to plantarflex and dorsiflex actively. Sensation is intact to light touch to saphenous, sural, superficial and deep peroneal, and tibial distribution. Knee immobilizer in place Dressing is clean dry and intact. Negative Homans bilaterally, negative signs and symptoms of DVT. - Physical Exam Vitals/I&O's: Vital Signs Temp Pulse Resp BP Pulse Ox 97.7 F L 59 L 16 137/55 H 97 06/30/20 04:30 06/30/20 04:30 06/30/20 04:30 06/30/20 04:30 06/30/20 04:30 Oxygen Flow Rate (L/min) 2 Oxygen Delivery Method Room Air Weight: 85.8 kg Body Mass Index (BMI) 30.5 Intake and Output for Last 24 Hours 06/28/20 06/29/20 06/30/20 23:59 23:59 23:59 Intake Total 3680.75 / 3680.75 2330 / 2930 600 / 600 Output Total 300 / 300 1550 / 1950 400 / 400 Balance 3380.75 / 3380.75 780 / 980 200 / 200 General: Alert, Oriented x3, Cooperative, No apparent distress Microbiology Past 72 Hours 06/28/20 Unknown Tissue - Knee Gram Stain - Final 06/28/20 Unknown Tissue - Knee Wound Culture - Preliminary No growth-Final to follow 06/28/20 Unknown Tissue - Knee Gram Stain - Final 06/28/20 Unknown Tissue - Knee Wound Culture - Preliminary No growth-Final to follow 06/28/20 Unknown Tissue - Knee Gram Stain - Final 06/28/20 Unknown Tissue - Knee Wound Culture - Preliminary No growth-Final to follow Laboratory Results 06/29/20 06:50: WBC 22.8 H, RBC 3.54 L, Hgb 9.9 L, Hct 32.5 L, MCV 91.8, MCH 28.0, MCHC 30.5 L, RDW Std Deviation 47.7 H, RDW Coeff of Rainer 14.1, Plt Count 292, MPV 10.1 06/29/20 06:50: Sodium 135 L, Potassium 4.3, Chloride 104, Carbon Dioxide 23.0, Anion Gap 8, BUN 25 H, Creatinine 1.26 H, Estim Creat Clear Calc 36.67, Est GFR (MDRD) Af Amer 53 L, Est GFR (MDRD) Non-Af 44 L, BUN/Creatinine Ratio 19.8, Glucose 268 H, Calcium 8.6 06/29/20 07:31: POC Glucose 242 H 06/29/20 11:46: POC Glucose 196 H 06/29/20 16:05: POC Glucose 129 H 06/29/20 21:48: POC Glucose 243 H Current Medications Acetaminophen (Acetaminophen 500 Mg Tablet) 1,000 mg PO Q8 [facility] Last Admin: 06/29/20 21:49 Dose: 1,000 mg Documented by: Albuterol Sulfate (Albuterol 2.5 Mg/3 Ml Vial.Neb.) 2.5 mg INHALATION Q2H PRN PRN PRN Reason: Dyspnea, wheezing Aspirin (Aspirin 81 Mg Tab.Chew) 81 mg PO BIDCM [facility] Last Admin: 06/29/20 17:05 Dose: 81 mg Documented by: Calcium Carbonate (Calcium Carbonate 500 Mg Tablet) 500 mg PO Q4H PRN PRN PRN Reason: HEARTBURN Last Admin: 06/29/20 23:07 Dose: 500 mg Documented by: Dextrose (Dextrose 50%-Water 25 Gm/50 Ml Disp.Syrin) 0 gm IV X1 PRN; Protocol PRN Reason: Hypoglycemia Enteral Nutritional Formula (Ensure Surgery 237 Ml Liquid) 237 ml PO TIDCM [facility] Last Admin: 06/29/20 17:05 Dose: Not Given Documented by: Famotidine (Famotidine 20 Mg Tablet) 20 mg PO DAILY [facility] Last Admin: 06/29/20 10:00 Dose: 20 mg Documented by: Glimepiride (Glimepiride 4 Mg Tablet) 4 mg PO BIDCM [facility] Last Admin: 06/29/20 17:05 Dose: 4 mg Documented by: Glucagon (Glucagon 1 Mg/Ml Syringe) 1 mg IM .X1 PRN PRN Reason: Hypoglycemia Hydrochlorothiazide (Hydrochlorothiazide 25 Mg Tablet) 25 mg PO DAILY [facility] Last Admin: 06/29/20 10:00 Dose: 25 mg Documented by: Vancomycin IV Pharmacy to Dose (1 ea/ Sodium Chloride) 500 mls @ 250 mls/hr IV X1 PRN; Protocol PRN Reason: Rx to Dose Vancomycin HCl 750 mg/ Sodium (Chloride) 265 mls @ 250 mls/hr IV Q12H [facility] Last Infusion: 06/29/20 22:44 Dose: Infused Documented by: Ceftriaxone Sodium 2 gm/ (Sodium Chloride) 50 mls @ 100 mls/hr IV Q24 [facility] Last Infusion: 06/29/20 12:30 Dose: Infused Documented by: Insulin Human Lispro (Insulin Lispro 100 Unit/Ml Insuln.Pen) 8 unit SC BREAKFAST [facility] Last Admin: 06/29/20 07:46 Dose: 8 units Documented by: Insulin Human Lispro (Insulin Lispro 100 Unit/Ml Insuln.Pen) 0 unit SC ACHS [facility]; Protocol Last Admin: 06/29/20 21:50 Dose: 3 u Documented by: Insulin Human NPH (Insulin Nph Human 100 Units/Ml Pen) 7 units SC LUNCH [facility] Last Admin: 06/29/20 11:36 Dose: Not Given Documented by: Insulin Human NPH (Insulin Nph Human 100 Units/Ml Pen) 10 units SC SUPPER [facility] Last Admin: 06/29/20 17:07 Dose: Not Given Documented by: Lisinopril (Lisinopril 40 Mg Tablet) 40 mg PO DAILY [facility] Last Admin: 06/29/20 10:00 Dose: 40 mg Documented by: Morphine Sulfate (Morphine 2 Mg/Ml Syringe) 2 - 4 mg IV Q2H PRN PRN PRN Reason: Pain Score 6-10 Morphine Sulfate (Morphine 4 Mg/Ml Syringe) 2 - 4 mg IV Q2H PRN PRN PRN Reason: Pain Score 6-10 Nitrofurantoin Macrocrystals (Nitrofurantoin Macrocrystals 100 Mg Capsule) 100 mg PO Q12 [facility] Last Admin: 06/29/20 21:49 Dose: 100 mg Documented by: Ondansetron HCl (Ondansetron 4 Mg/2 Ml Vial) 4 mg IV Q8H PRN PRN PRN Reason: NAUSEA Oxycodone HCl (Oxycodone 5 Mg Tablet) 5 - 10 mg PO Q4H PRN PRN PRN Reason: Pain Score 4-10 Last Admin: 06/28/20 18:09 Dose: 10 mg Documented by: Pantoprazole Sodium (Pantoprazole Sodium 20 Mg Tablet) 20 mg PO DAILY PRN PRN Reason: HEARTBURN Promethazine HCl (Promethazine 25 Mg/Ml Syringe) 12.5 mg IM Q6H PRN PRN; Protocol PRN Reason: NAUSEA/VOMITING Senna/Docusate Sodium (Senna/Docusate Sodium 1 Tablet) 2 tablet PO BID [facility] Last Admin: 06/29/20 21:49 Dose: 2 tablet Documented by: Sodium Chloride (0.9% Saline Lock 10 Ml Syringe) 10 - 40 ml IV UD PRN PRN Reason: SALINE FLUSH Last Admin: 06/29/20 21:41 Dose: 10 ml Documented by: Medical Necessity - Tobacco Use Smoking Status: Never smoker Tobacco Use: Non-smoker Assessment/Plan All Active Problems (Last Reviewed 08/24/19 @ 12:[address] Jeremy Harrison MD) Infection of right knee (Acute) 1. 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 2. Continue pain medications: Tylenol and OxyIR. Patient has only been requiring Tylenol at this point. 3. DVT prophylaxis: Take 81 mg aspirin twice daily for 4 weeks postoperatively for DVT prophylaxis 4. PT/OT: continue in the knee immobilizer at all times. Toe-touch weightbearing on the right lower extremity with no flexion for 2 weeks. This will be followed by partial weightbearing 50% with range of motion exercises started at that time. 5. H & H: We will continue to monitor, yesterday hemoglobin was 9.9/32.5. 6. Reactive leukocytosis: Yesterday white blood cell count was 22.8, patient is afebrile. Patient does have history of type 2 diabetes mellitus. We will continue to monitor. Lab work was not available upon time of rounding. I am unable to track down preoperative lab work to compare previous CBC. 7. Encouraged incentive spirometry. 8. Continue postoperative medical management per medicine. 9. Consultation with infectious disease: Initial findings from the cultures were with no growth and no organisms seen, we will continue to monitor and follow. PICC line has been placed, appreciate input from infectious disease with antibiotics on discharge. 10. Disposition: Plan will be for discharge to the transitional care unit once approved and we have final antibiotics per infectious disease. I have reviewed the [place] Automated Rx Reporting System (OARRS) report for this patient for refill pattern and other prescriber involvement as part of the appropriate surveillance for the provision of acute and chronic controlled medications. The report was requested and reviewed on the date of this entry and was considered in the prescribing process.
[2020-06-30] MEDS: Acetaminophen 500 MG Tablet 1000 MG PO ×2 (06:37→13:21)
[2020-06-30 06:50] LABS: Bedside Glucose 153 mg/dL (70-110)
[2020-06-30 07:25] VITALS: O2SAT 90
--- NOTE | 2020-06-30 07:46 | PCM.PN.HOSP ---
Patient Problems: Active and Suspected Problems (Last Reviewed 08/24/19 @ 12:[address] Jeremy Harrison MD) Infection of right knee (Acute) Reason for Visit: Follow-up for prosthetic joint infection Objective: site monitor shows sinus rhythm with PACs. Patient does not have any sensation of arrhythmia or extra heart beat. Heart rate is controlled. Physical exam General: Alert, Oriented x3, Cooperative HEENT: Atraumatic, PERRLA, EOMI, Normocephalic Oral: No Gingival or Mucosal Lesions/ Ulcerations Neck: Supple, No JVD, Negative Carotid Bruits Lungs: Air entry equal in bilateral lung bases. No crepitation/rhonchi Cardiovascular: Irregular sinus rhythm with supraventricular beats, Normal S1, Normal S2, low grade 3/6 systolic murmur over LLSB. Abdomen: Bowel Sounds Present, Soft, Non Tender, Non-Distended : No renal angle tenderness. No suprapubic tenderness. Extremities: No edema, Capillary Refill Less than 3 Seconds Skin: No rashes, No breakdown Musculoskeletal: Right knee on immobilizer. Surgical dressing dry. No Tenderness to Palpation of other joints or Extremities Neurological: Cranial nerves II-XII grossly intact, Deep Tendon Reflexes 2+/4 and Symmetrical, Neuro grossly intact Psych/Mental Status: Normal Affect, Appropriate. Vitals/I&O's: Vital Signs Temp Pulse Resp BP Pulse Ox 97.7 F L 59 L 16 137/55 H 90 06/30/20 04:30 06/30/20 04:30 06/30/20 04:30 06/30/20 04:30 06/30/20 07:25 Oxygen Flow Rate (L/min) 2 Oxygen Delivery Method Room Air Weight: 189 lb 2.506 oz Body Mass Index (BMI) 30.5 Intake and Output for Last 24 Hours 06/28/20 06/29/20 06/30/20 23:59 23:59 23:59 Intake Total 3680.75 / 3680.75 2330 / 2930 1000 / 1000 Output Total 300 / 300 1550 / 1950 1700 / 1700 Balance 3380.75 / 3380.75 780 / 980 -700 / -700 Microbiology Past 72 Hours 06/28/20 Unknown Tissue - Knee Gram Stain - Final 06/28/20 Unknown Tissue - Knee Wound Culture - Preliminary No growth-Final to follow 06/28/20 Unknown Tissue - Knee Gram Stain - Final 06/28/20 Unknown Tissue - Knee Wound Culture - Preliminary No growth-Final to follow 06/28/20 Unknown Tissue - Knee Gram Stain - Final 06/28/20 Unknown Tissue - Knee Wound Culture - Preliminary No growth-Final to follow Laboratory Results 06/29/20 11:46: POC Glucose 196 H 06/29/20 16:05: POC Glucose 129 H 06/29/20 21:48: POC Glucose 243 H 06/30/20 06:36: POC Glucose 153 H Current Medications Acetaminophen (Acetaminophen 500 Mg Tablet) 1,000 mg PO Q8 [facility] Last Admin: 06/30/20 06:37 Dose: 1,000 mg Documented by: Albuterol Sulfate (Albuterol 2.5 Mg/3 Ml Vial.Neb.) 2.5 mg INHALATION Q2H PRN PRN PRN Reason: Dyspnea, wheezing Aspirin (Aspirin 81 Mg Tab.Chew) 81 mg PO BIDCM [facility] Last Admin: 06/29/20 17:05 Dose: 81 mg Documented by: Calcium Carbonate (Calcium Carbonate 500 Mg Tablet) 500 mg PO Q4H PRN PRN PRN Reason: HEARTBURN Last Admin: 06/29/20 23:07 Dose: 500 mg Documented by: Dextrose (Dextrose 50%-Water 25 Gm/50 Ml Disp.Syrin) 0 gm IV X1 PRN; Protocol PRN Reason: Hypoglycemia Enteral Nutritional Formula (Ensure Surgery 237 Ml Liquid) 237 ml PO TIDCM [facility] Last Admin: 06/29/20 17:05 Dose: Not Given Documented by: Famotidine (Famotidine 20 Mg Tablet) 20 mg PO DAILY [facility] Last Admin: 06/29/20 10:00 Dose: 20 mg Documented by: Glimepiride (Glimepiride 4 Mg Tablet) 4 mg PO BIDCM [facility] Last Admin: 06/29/20 17:05 Dose: 4 mg Documented by: Glucagon (Glucagon 1 Mg/Ml Syringe) 1 mg IM .X1 PRN PRN Reason: Hypoglycemia Hydrochlorothiazide (Hydrochlorothiazide 25 Mg Tablet) 25 mg PO DAILY [facility] Last Admin: 06/29/20 10:00 Dose: 25 mg Documented by: Vancomycin IV Pharmacy to Dose (1 ea/ Sodium Chloride) 500 mls @ 250 mls/hr IV X1 PRN; Protocol PRN Reason: Rx to Dose Vancomycin HCl 750 mg/ Sodium (Chloride) 265 mls @ 250 mls/hr IV Q12H [facility] Last Infusion: 06/29/20 22:44 Dose: Infused Documented by: Ceftriaxone Sodium 2 gm/ (Sodium Chloride) 50 mls @ 100 mls/hr IV Q24 [facility] Last Infusion: 06/29/20 12:30 Dose: Infused Documented by: Insulin Human Lispro (Insulin Lispro 100 Unit/Ml Insuln.Pen) 8 unit SC BREAKFAST [facility] Last Admin: 06/29/20 07:46 Dose: 8 units Documented by: Insulin Human Lispro (Insulin Lispro 100 Unit/Ml Insuln.Pen) 0 unit SC ACHS [facility]; Protocol Last Admin: 06/29/20 21:50 Dose: 3 u Documented by: Insulin Human NPH (Insulin Nph Human 100 Units/Ml Pen) 7 units SC LUNCH [facility] Last Admin: 06/29/20 11:36 Dose: Not Given Documented by: Insulin Human NPH (Insulin Nph Human 100 Units/Ml Pen) 10 units SC SUPPER [facility] Last Admin: 06/29/20 17:07 Dose: Not Given Documented by: Lisinopril (Lisinopril 40 Mg Tablet) 40 mg PO DAILY [facility] Last Admin: 06/29/20 10:00 Dose: 40 mg Documented by: Morphine Sulfate (Morphine 2 Mg/Ml Syringe) 2 - 4 mg IV Q2H PRN PRN PRN Reason: Pain Score 6-10 Morphine Sulfate (Morphine 4 Mg/Ml Syringe) 2 - 4 mg IV Q2H PRN PRN PRN Reason: Pain Score 6-10 Nitrofurantoin Macrocrystals (Nitrofurantoin Macrocrystals 100 Mg Capsule) 100 mg PO Q12 [facility] Last Admin: 06/29/20 21:49 Dose: 100 mg Documented by: Ondansetron HCl (Ondansetron 4 Mg/2 Ml Vial) 4 mg IV Q8H PRN PRN PRN Reason: NAUSEA Oxycodone HCl (Oxycodone 5 Mg Tablet) 5 - 10 mg PO Q4H PRN PRN PRN Reason: Pain Score 4-10 Last Admin: 06/28/20 18:09 Dose: 10 mg Documented by: Pantoprazole Sodium (Pantoprazole Sodium 20 Mg Tablet) 20 mg PO DAILY PRN PRN Reason: HEARTBURN Promethazine HCl (Promethazine 25 Mg/Ml Syringe) 12.5 mg IM Q6H PRN PRN; Protocol PRN Reason: NAUSEA/VOMITING Senna/Docusate Sodium (Senna/Docusate Sodium 1 Tablet) 2 tablet PO BID [facility] Last Admin: 06/29/20 21:49 Dose: 2 tablet Documented by: Sodium Chloride (0.9% Saline Lock 10 Ml Syringe) 10 - 40 ml IV UD PRN PRN Reason: SALINE FLUSH Last Admin: 06/29/20 21:41 Dose: 10 ml Documented by: STROKE Vital Signs/Narrative: Vital Signs Temp Pulse Resp BP Pulse Ox 06/30/20 07:25 90 06/30/20 04:30 97.7 F L 59 L 16 137/55 H 97 06/30/20 03:49 56 L Medical Necessity - Tobacco Use Smoking Status: Never smoker Tobacco Use: Non-smoker Assessment/Plan All Active Problems (Last Reviewed 08/24/19 @ 12:[address] Jeremy Harrison MD) Infection of right knee (Acute) The patient is a 74 y/o F with history of chronic UTIs following w/ ID and Urology, Diabetes mellitus type II, HTN, GERD, degenerative joint disease with history of prior TKR with periprosthetic join infection was admitted on 06/28/[address] Casillas for planned right total knee removal with placement of cement spacer. 1. Severe Osteoarthritis status post right TKR with right periprosthetic joint infection: Patient had right total knee removal with placement of segmental spacer and nonbiodegradable antibiotic delivery system. On IV vancomycin and ceftriaxone. Seen by ID. Tissue culture from surgery are pending. Final antibiotic after culture growth. Incentive spirometry. On stool softener for constipation. PT OT and case nurse consult. 2. Sinus rhythm with paroxysmal supraventricular beats: Patient has systolic murmur over LLSB most likely mild TR. 2D echo is ordered. Twelve-lead EKG reviewed from 06/29 in 06/30 is in sinus rhythm with proximal supraventricular rhythm. 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 Heart rate is controlled. No active intervention. Discussed with the patient. Diabetes mellitus type II: continued on oral home regimen, continue home insulin regimen, ADA diet, accu checks w/ ISS. 3. GERD: continue on famotidine. 4. Hypertension: Continue home regimen including hydrochlorothiazide 5. DVT prophylaxis: SCDs, aspirin 81 mg p.o. twice daily per orthopedic surgery discretion. Inpatient E&M: 64576 Subs Hosp L2
[2020-06-30 07:50] VITALS: BP 134/45; PULSE 71; RESP 18; TEMP 37; O2SAT 93
[2020-06-30] MEDS: Insulin Lispro 100 UNIT/ML INSULN.PEN SC ×3 (08:05→17:23)
[2020-06-30] MEDS: Insulin Lispro 100 UNIT/ML INSULN.PEN 8 UNIT SC (08:06)
[2020-06-30] MEDS: Aspirin 81 MG TAB.CHEW PO ×2 (08:08→17:21)
[2020-06-30] MEDS: Ensure Surgery 237 ML LIQUID PO (08:08)
[2020-06-30] MEDS: Glimepiride 4 MG Tablet PO ×2 (08:08→17:21)
[2020-06-30] MEDS: Nitrofurantoin Macrocrystals 100 MG Capsule PO (08:09)
[2020-06-30] MEDS: Lisinopril 40 MG Tablet PO (08:09)
[2020-06-30] MEDS: hydroCHLOROthiazide 25 MG Tablet PO (08:09)
[2020-06-30] MEDS: Famotidine 20 MG Tablet PO (08:09)
[2020-06-30] MEDS: Senna/Docusate Sodium 1 Tablet 2 TABLET PO (08:09)
--- NOTE | 2020-06-30 09:23 | EKG12_ITS ---
Test Reason : IRREG HR Blood Pressure : / mmHG Vent. Rate : 073 BPM Atrial Rate : 081 BPM P-R Int : 152 ms QRS Dur : 088 ms QT Int : 390 ms P-R-T Axes : 000 029 043 degrees QTc Int : 429 ms Sinus rhythm with Premature atrial complexes Confirmed by GERARDO BONNER, DESI ([id number]), slot editor ANNI WOODRUFF ([id number]) on 07/03/2020 12:54:51 PM Referred By: Oren Casillas Confirmed By:DESI CARRILLO MD
--- NOTE | 2020-06-30 09:23 | ECHOCS_ITS ---
Reason For Study: Arrhythmia Procedure This was a 2D Doppler, Color Flow transthoracic echocardiogram. The study was technically difficult. Contrast injection was performed. Exam performed portable in patient room. Left Ventricle Normal LV size. Left ventricular systolic function is normal. The estimated ejection fraction is 65 %. Diastolic function is indeterminate. No regional wall motion abnormalities noted. Right Ventricle Normal RV size. Normal systolic function. Atria Normal left atrium. Normal right atrium. No doppler evidence for ASD. Bubble contrast study negative for right to left interatrial shunt. Mitral Valve There is mild mitral annular calcification. Normal mitral valve. Trivial mitral valve insufficiency. Tricuspid Valve Normal tricuspid valve. Mild to moderate (1-2+) tricuspid valve insufficiency. Right ventricular systolic pressure estimated to be 45 mmHg. Aortic Valve Trisinus/trileaflet aortic valve. Mild diffuse aortic valve thickening. Mild focal aortic valve calcification. Pulmonic Valve The pulmonic valve is not well visualized. Great Vessels The aortic valve is not well visualized. Pericardium/Pleural No pericardial effusion. Medication Diluted definity 1ml given slow IV push to enhance endocardial definition. Performed a rapid injection of agitated mix of 9 cc saline and 1cc air to assess for atrial septal defect. MMode/2D Measurements & Calculations LVIDd: 4.0 cm IVSd: 0.96 cm LVOT diam: 2.0 cm LVIDs: 2.3 cm LVPWd: 1.1 cm RVDd: 3.5 cm FS: 42.9 % LVOT area: 3.1 cm2 LA dimension: 3.6 cm LAV(MOD-bp): 66.9 ml LA A4 area: 19.8 cm2 LAV(MOD-bp) Indexed: 34.2 ml/m2 LAV(MOD-sp2): 77.3 ml LAV(MOD-sp4): 55.9 ml RA A4 area: 18.4 cm2 Time Measurements MV dec time: 0.28 sec Doppler Measurements & Calculations MV E max rodriguez: 111.7 cm/sec Lat Peak E' Rodriguez: 13.3 cm/sec Med Peak E' Rodriguez: 12.6 cm/sec MV A max rodriguez: 98.1 cm/sec E/E' lat: 8.4 E/E' med: 8.8 MV E/A: 1.1 MV V2 max: 121.2 cm/sec MV P1/2t max rodriguez: 123.6 cm/sec Ao V2 max: 208.3 cm/sec MV max P.9 mmHg MV P1/2t: 112.9 msec Ao max P.4 mmHg MV V2 mean: 69.8 cm/sec MV dec slope: 320.5 cm/sec2 KOKO(V,D): 1.8 cm2 MV mean P.3 mmHg MV V2 VTI: 40.2 cm MVA(P1/2t): 1.9 cm2 LV V1 max: 124.3 cm/sec PA V2 max: 113.0 cm/sec TR max rodriguez: 303.0 cm/sec LV V1 max P.2 mmHg TR max P.7 mmHg Interpretation Summary The study was technically difficult. Contrast injection was performed. Left ventricular systolic function is normal. The estimated ejection fraction is 65 %. There is mild mitral annular calcification. Trivial mitral valve insufficiency. Mild to moderate (1-2+) tricuspid valve insufficiency. Mild diffuse aortic valve thickening. Mild focal aortic valve calcification. Right ventricular systolic pressure estimated to be 45 mmHg. Diastolic function is indeterminate. Ordering Physician: Anders Mckay Referring Physician: Oren Casillas Performed By: Jose Francisco Taylor RCS
[2020-06-30 09:30] LABS: Hematocrit 29.7 % (37-47); Hemoglobin 9.4 g/dL (12.0-15.0); Mean Corp Hgb Conc 31.6 g/dL (32-36); Mean Corpuscular Hgb 28.6 pg (27.0-32.0); Mean Corpuscular Volume 90.3 fL (81-99); Mean Platelet Vol. 10.3 fl (6.2-12.0); Platelet Count 254 K/mm3 (150-450); RBC Distribution Width CV 14.7 % (11.6-14.6); RBC Distribution Width SD 48.4 fl (35.1-43.9); Red Blood Count 3.29 M/mm3 (4.2-5.4)
[2020-06-30] MEDS: 0.9% Saline Lock 10 ML Syringe IV (09:46)
[2020-06-30 09:55] LABS: Vancomycin, Trough Level 14.7 ug/mL (5.0-15.0)
[2020-06-30 10:00] VITALS: PULSE 65
--- NOTE | 2020-06-30 10:22 | CASEMGMT ---
Addendum entered by Maren Mcknight 06/30/20 14:54: Pt stated that she would call her to update on discharge to TCU. Addendum entered by Maren Mcknight 06/30/20 12:03: SW received call from Bonnie in TCU stating TCU is able to accept pt. SW then received call from Dontrell MEDINA stating he will be in later today to discharge pt to TCU. SW in to speak with pt. SW introduced self and role at [facility]. SW informed pt that TCU is able to accept pt and will likely discharge today. Pt states understanding. SW placed a call to Bonnie in TCU and updated her pt will be discharge to TCU today. Plan: TCU once medically cleared Addendum entered by Maren Mcknight 06/30/20 11:37: SW received antibiotics. SABINE placed a call to Bonnie in TCU and updated her on pt's antibiotics. Bonnie states she will check boone and let this worker know. Original Note: Social Work Note SABINE placed a call to Bonnie in TCU. Bonnie states once pt's IV antiobiotics are confirmed, TCU will need to be updated to run costs of antibiotics. If IV antibiotics are inexpensive, TCU will be able to accept. SW waiting for confirmation of IV antibiotics. Maren Mcknight PAN SHAKER, LINEN ROOM HOUSEPERSON
--- NOTE | 2020-06-30 11:30 | NURSING ---
sent a picture via [employer]OV[employer] of EKG that was just done recently to Dr. Mckay. Awaiting response.
[2020-06-30 11:32] LABS: Creatinine, Serum 1.17 mg/dL (0.55-1.02); EST Glomerular Filtration Rate 48 mL/min (>60); Est Glom Filt Rate - Afr Amer 58 mL/min (>60); Estimated Creatinine Clearance 39.49 ml/min
--- NOTE | 2020-06-30 12:16 | PCM.RX.CS ---
Consult Pharmacy has been consulted to manage selected antiobiotic: Vancomycin Type of Consult: Follow-up Prior Doses of Antibiotics Received/Current Regimen: current regimen is 750mg IV q12h Labs: Sodium 135 mmol/L (136-145) L 06/29/20 06:50 Potassium 4.3 mmol/L (3.5-5.1) 06/29/20 06:50 Chloride 104 mmol/L (98-107) 06/29/20 06:50 Carbon Dioxide 23.0 mmol/L (21.0-32.0) 06/29/20 06:50 Anion Gap 8 (5-15) 06/29/20 06:50 BUN 25 mg/dL (7-18) H 06/29/20 06:50 Creatinine 1.17 mg/dL (0.55-1.02) H 06/30/20 09:21 Est GFR (MDRD) Af Amer 58 mL/min (>60) L 06/30/20 09:21 Est GFR (MDRD) Non-Af 48 mL/min (>60) L 06/30/20 09:21 BUN/Creatinine Ratio 19.8 RATIO (-) 06/29/20 06:50 Glucose 268 mg/dL (74-106) H 06/29/20 06:50 Vancomycin Trough 14.7 ug/mL (5.0-15.0) 06/30/20 09:21 Microbiology: Microbiology 06/28/20 Unknown Tissue - Knee Gram Stain - Final 06/28/20 Unknown Tissue - Knee Wound Culture - Preliminary No growth-Final to follow 06/28/20 Unknown Tissue - Knee Anaerobic Culture - Preliminary No growth in 48 hours. 06/28/20 Unknown Tissue - Knee Gram Stain - Final 06/28/20 Unknown Tissue - Knee Wound Culture - Preliminary No growth-Final to follow 06/28/20 Unknown Tissue - Knee Anaerobic Culture - Preliminary No growth in 48 hours. 06/28/20 Unknown Tissue - Knee Gram Stain - Final 06/28/20 Unknown Tissue - Knee Wound Culture - Preliminary No growth-Final to follow 06/28/20 Unknown Tissue - Knee Anaerobic Culture - Preliminary No growth in 48 hours. 06/21/20 13:49 Swab (Method) Nasal Screen MRSA/MSSA - Final Weight used for dosin.8 kg Estimated Creatinine Clearance: 40ml/min Goal Trough: 15-20 mcg/mL Pharmacy Plan for Drug Dosing: The vancomycin trough drawn before this morning's dose came back as 14.7. This is just short of the goal range of 15-20 and it's suspected that the trough will rise even further into the goal range. Will check another trough in a couple days to make sure. Leave current dosing as is for now. Pharmacy Service will continue to monitor and adjust dosing as required. Follow-Up Labs: Trough Vancomycin Labs to be done on [date and time ordered]: 07/02/20 8470
[2020-06-30] MEDS: Insulin NPH Human 100 UNITS/ML PEN 7 UNITS SC (12:28)
[2020-06-30 12:40] LABS: Bedside Glucose 246 mg/dL (70-110)
--- NOTE | 2020-06-30 13:09 | NURSING ---
PT REFUSING ENSURE SURGERY DUE AMOUNT OF CARBS, PT CONCERNED ABOUT ELEVATING BLOOD SUGARS. SPOKE WITH NUTRITION, REC CHANGING TO GLUCERNA.
[2020-06-30 14:00] VITALS: BP 131/44; PULSE 65; PULSE 67; RESP 18; TEMP 36.9; O2SAT 94
--- NOTE | 2020-06-30 15:23 | CASEMGMT ---
Social Work Note Pt is able to discharge to TCU today. Green sheet on chart. Plan: TCU today Maren Mcknight CUSTOMER LEADER, COOK CHIEF
--- NOTE | 2020-06-30 16:30 | NURSING ---
REPORT GIVEN TO FELICITY ON TCU
--- NOTE | 2020-06-30 16:31 | PCM.DC.TKR ---
Discharge Diet: 1800 Calorie Control Diet Discharge Activity: May Not Drive May shower in (days): 1 - Dressing must be intact to skin. Turn dressing away from water Ice area for (Minutes): 20 - every hour while awake. Weight Bearing Status: Toe touch weight bearing - Right lower extremity for 2 weeks postoperatively with knee immobilizer Elevate: Operative Extremity Additional Activity Instructions:: Wear elastic stockings for 2 weeks after your surgery. Call your doctor if your incision/area has: Continuous Slow Oozing, Sudden Increased Bleeding, Increased Pain/ Swelling, Increased Redness, Foul Smelling Discharge Call your doctor if you observe: Fever of 101 or Higher, Coldness, Increased Pain, Numbness or Tingling, Change in Color, Calf discomfort, Uncontrolled pain Remove Dressing in (days):: 3 - Okay to remove dressing on July 03, 2020 Additional Instructions: Follow orthopedic postop instructions Allergies/Adverse Reactions: Allergies ciprofloxacin Allergy (Severe, Verified 06/28/20 10:22) impairment of motor skills epinephrine [From Xylocaine with Epinephrine] Allergy (Unknown, Verified 06/28/20 10:22) unknown lidocaine [From Xylocaine with Epinephrine] Allergy (Unknown, Verified 06/28/20 10:22) unknown Sulfa (Sulfonamide Antibiotics) Allergy (Unknown, Verified 06/28/20 10:22) unknown metformin Adverse Reaction (Intermediate, Verified 06/28/20 10:22) loose stool, bladder infections sitagliptin [From Janumet] Adverse Reaction (Intermediate, Verified 06/28/20 10:22) loose stool batroxobin Adverse Reaction (Unknown, Verified 06/28/20 10:22) unknown exenatide [From Byetta] Adverse Reaction (Unknown, Verified 06/28/20 10:22) unknown nizatidine [From Axid] Adverse Reaction (Unknown, Verified 06/28/20 10:22) unknown sertraline [From Zoloft] Adverse Reaction (Unknown, Verified 06/28/20 10:22) unknown simvastatin [From Zocor] Adverse Reaction (Unknown, Verified 06/28/20 10:22) unknown trandolapril [From Mavik] Adverse Reaction (Unknown, Verified 06/28/20 10:22) unknown Medications to take at Discharge hydrochlorothiazide 25 mg tablet 25 mg PO DAILY #30 tab 06/25/19 lisinopril 40 mg tablet 40 mg PO DAILY #90 tab 06/25/19 calcium carbonate 500 mg (1,250 mg)-vitamin D3 125 unit tablet 1 tab PO BID 07/20/19 cholecalciferol (vitamin D3) 50 mcg (2,000 unit) capsule 2,000 unit PO DAILY 07/20/19 lactobacillus combination no.8 3 billion cell capsule 3,000 mmu cells PO BID 07/20/19 omeprazole magnesium 20 mg tablet,delayed release 20 mg PO DAILY PRN 07/20/19 trimethoprim 100 mg tablet 100 mg PO Q12H 07/20/19 glimepiride 4 mg tablet 4 mg PO BID #180 tab 08/24/19 insulin lispro protamine-lispro 100 unit/mL (50-50) subcutaneous pen See Rx Instructions SC TID ml 08/24/19 Cyanocobalamin (Vitamin B-12) [Vitamin B-12] 1,000 mcg PO DAILY 06/14/20 Acetaminophen [Tylenol] 1,000 mg PO Q8 14 Days tab 06/30/20 Albuterol Aerosols [Ventolin Aerosols] 2.5 mg INHALATION Q2H PRN PRN vial.neb. 06/30/20 Aspirin [Aspirin, Baby] 81 mg PO BIDCM 30 Days tab.chew 06/30/20 Calcium Carbonate [Tums] 500 mg PO Q4H PRN PRN tab 06/30/20 Ceftriaxone 2 gm IV Q24 40 Days #40 vial 06/30/20 Senna/Docusate Sodium [Senokot-S] 2 tab PO BID tab 06/30/20 Vancomycin IV 750 mg IV Q12H 40 Days #80 vial 06/30/20 traMADol [Ultram] 50 - 100 mg PO Q6H PRN PRN #30 tab 06/30/20 The following prescriptions were given: Ceftriaxone 2 gm IV Q24 40 Days #40 vial Prescription Printed traMADol [Ultram] 50 - 100 mg PO Q6H PRN PRN #30 tab PRN Reason: Pain Score 4-10 Prescription Printed Vancomycin IV 750 mg IV Q12H 40 Days #80 vial Prescription Printed Orders to be completed after discharge: 12 Lead EKG [[facility]] Time Frame: 06/21/20, Facility: [facility], Location: Cardiovascular Services Primary Care Physician: Pipe Quigley MD [Primary Care Provider] - Please follow up with your Primary Care Physician in: 2 week follow up for paroxysmal supraventricular beats Test Results: Test results from this visit will be discussed in further detail at your follow-up appointment, if applicable. Please Follow Up With: Jc Bowden MD When: while at TCU Please Follow Up With: Dontrell Melendrez PA-C When: 07/12/20 @ 9:00 am
--- NOTE | 2020-06-30 16:31 | PCM.PN.ID ---
Patient Problems: Active and Suspected Problems (Last Reviewed 08/24/19 @ 12:[address] Jeremy Harrison MD) Infection of right knee (Acute) Subjective: Feeling ok, no fever, no n/v/d. - Physical Exam Vitals/I&O's: Vital Signs Temp Pulse Resp BP Pulse Ox 98.4 F 67 18 131/44 H 94 06/30/20 14:00 06/30/20 14:00 06/30/20 14:00 06/30/20 14:00 06/30/20 14:00 Oxygen Flow Rate (L/min) 2 Oxygen Delivery Method Room Air Weight: 85.8 kg Body Mass Index (BMI) 30.5 Intake and Output for Last 24 Hours 06/28/20 06/29/20 06/30/20 23:59 23:59 23:59 Intake Total 3680.75 / 3680.75 2330 / 2930 2195 / 2195 Output Total 300 / 300 1550 / 1950 1700 / 1700 Balance 3380.75 / 3380.75 780 / 980 495 / 495 General: Alert, Cooperative, No apparent distress Lungs: Clear to auscultation, Normal air movement Cardiovascular: Regular rate, Regular Rhythm Abdomen: Soft, Non Tender, Non-Distended Skin: No rashes Microbiology Past 72 Hours 06/28/20 Unknown Tissue - Knee Gram Stain - Final 06/28/20 Unknown Tissue - Knee Wound Culture - Preliminary No growth-Final to follow 06/28/20 Unknown Tissue - Knee Anaerobic Culture - Preliminary No growth in 48 hours. 06/28/20 Unknown Tissue - Knee Gram Stain - Final 06/28/20 Unknown Tissue - Knee Wound Culture - Preliminary No growth-Final to follow 06/28/20 Unknown Tissue - Knee Anaerobic Culture - Preliminary No growth in 48 hours. 06/28/20 Unknown Tissue - Knee Gram Stain - Final 06/28/20 Unknown Tissue - Knee Wound Culture - Preliminary No growth-Final to follow 06/28/20 Unknown Tissue - Knee Anaerobic Culture - Preliminary No growth in 48 hours. Laboratory Results 06/29/20 21:48: POC Glucose 243 H 06/30/20 06:36: POC Glucose 153 H 06/30/20 09:21: WBC 21.0 H, RBC 3.29 L, Hgb 9.4 L, Hct 29.7 L, MCV 90.3, MCH 28.6, MCHC 31.6 L, RDW Std Deviation 48.4 H, RDW Coeff of Rainer 14.7 H, Plt Count 254, MPV 10.3 06/30/20 09:21: Vancomycin Trough 14.7 06/30/20 09:21: Creatinine 1.17 H, Estim Creat Clear Calc 39.49, Est GFR (MDRD) Af Amer 58 L, Est GFR (MDRD) Non-Af 48 L 06/30/20 10:40: COVID-19 ([facility]) Not Detected 06/30/20 12:21: POC Glucose 246 H Current Medications Acetaminophen (Acetaminophen 500 Mg Tablet) 1,000 mg PO Q8 [facility] Last Admin: 06/30/20 13:21 Dose: 1,000 mg Documented by: Albuterol Sulfate (Albuterol 2.5 Mg/3 Ml Vial.Neb.) 2.5 mg INHALATION Q2H PRN PRN PRN Reason: Dyspnea, wheezing Aspirin (Aspirin 81 Mg Tab.Chew) 81 mg PO BIDCM [facility] Last Admin: 06/30/20 08:08 Dose: 81 mg Documented by: Calcium Carbonate (Calcium Carbonate 500 Mg Tablet) 500 mg PO Q4H PRN PRN PRN Reason: HEARTBURN Last Admin: 06/29/20 23:07 Dose: 500 mg Documented by: Dextrose (Dextrose 50%-Water 25 Gm/50 Ml Disp.Syrin) 0 gm IV X1 PRN; Protocol PRN Reason: Hypoglycemia Famotidine (Famotidine 20 Mg Tablet) 20 mg PO DAILY [facility] Last Admin: 06/30/20 08:09 Dose: 20 mg Documented by: Glimepiride (Glimepiride 4 Mg Tablet) 4 mg PO BIDCM [facility] Last Admin: 06/30/20 08:08 Dose: 4 mg Documented by: Glucagon (Glucagon 1 Mg/Ml Syringe) 1 mg IM .X1 PRN PRN Reason: Hypoglycemia Hydrochlorothiazide (Hydrochlorothiazide 25 Mg Tablet) 25 mg PO DAILY [facility] Last Admin: 06/30/20 08:09 Dose: 25 mg Documented by: Vancomycin IV Pharmacy to Dose (1 ea/ Sodium Chloride) 500 mls @ 250 mls/hr IV X1 PRN; Protocol PRN Reason: Rx to Dose Vancomycin HCl 750 mg/ Sodium (Chloride) 265 mls @ 250 mls/hr IV Q12H [facility] Last Infusion: 06/30/20 10:49 Dose: Infused Documented by: Ceftriaxone Sodium 2 gm/ (Sodium Chloride) 50 mls @ 100 mls/hr IV Q24 [facility] Last Infusion: 06/30/20 12:53 Dose: Infused Documented by: Insulin Human Lispro (Insulin Lispro 100 Unit/Ml Insuln.Pen) 8 unit SC BREAKFAST [facility] Last Admin: 06/30/20 08:06 Dose: 8 units Documented by: Insulin Human Lispro (Insulin Lispro 100 Unit/Ml Insuln.Pen) 0 unit SC ACHS [facility]; Protocol Last Admin: 06/30/20 12:26 Dose: 3 u Documented by: Insulin Human NPH (Insulin Nph Human 100 Units/Ml Pen) 7 units SC LUNCH [facility] Last Admin: 06/30/20 12:28 Dose: 7 units Documented by: Insulin Human NPH (Insulin Nph Human 100 Units/Ml Pen) 10 units SC SUPPER [facility] Last Admin: 06/29/20 17:07 Dose: Not Given Documented by: Lisinopril (Lisinopril 40 Mg Tablet) 40 mg PO DAILY [facility] Last Admin: 06/30/20 08:09 Dose: 40 mg Documented by: Morphine Sulfate (Morphine 2 Mg/Ml Syringe) 2 - 4 mg IV Q2H PRN PRN PRN Reason: Pain Score 6-10 Morphine Sulfate (Morphine 4 Mg/Ml Syringe) 2 - 4 mg IV Q2H PRN PRN PRN Reason: Pain Score 6-10 Nitrofurantoin Macrocrystals (Nitrofurantoin Macrocrystals 100 Mg Capsule) 100 mg PO Q12 [facility] Last Admin: 06/30/20 08:09 Dose: 100 mg Documented by: Nutritional Formula (Lactose Free) (Glucerna Shake 120 Ml Liquid) 120 ml PO TIDCM [facility] Ondansetron HCl (Ondansetron 4 Mg/2 Ml Vial) 4 mg IV Q8H PRN PRN PRN Reason: NAUSEA Oxycodone HCl (Oxycodone 5 Mg Tablet) 5 - 10 mg PO Q4H PRN PRN PRN Reason: Pain Score 4-10 Last Admin: 06/28/20 18:09 Dose: 10 mg Documented by: Pantoprazole Sodium (Pantoprazole Sodium 20 Mg Tablet) 20 mg PO DAILY PRN PRN Reason: HEARTBURN Promethazine HCl (Promethazine 25 Mg/Ml Syringe) 12.5 mg IM Q6H PRN PRN; Protocol PRN Reason: NAUSEA/VOMITING Senna/Docusate Sodium (Senna/Docusate Sodium 1 Tablet) 2 tablet PO BID [facility] Last Admin: 06/30/20 08:09 Dose: 2 tablet Documented by: Sodium Chloride (0.9% Saline Lock 10 Ml Syringe) 10 - 40 ml IV UD PRN PRN Reason: SALINE FLUSH Last Admin: 06/30/20 09:46 Dose: 10 ml Documented by: Medical Necessity - Tobacco Use Smoking Status: Never smoker Tobacco Use: Non-smoker Route of nutrition/ use of supplements: [] Nutritional Intake: [] IV Site: [] Morrell Catheter: [] - Assessment/Plan Antibiotics: [] Assessment/Plan: [] Active and Suspected Problems (Last Reviewed 08/24/19 @ 12:[address] 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 Casillas. Surg cx pending. Will cover with vanc/ceftriaxone for now. Plan will be for 6 weeks iv abx at discharge, stop date 08/09/20. Weekly bmp, cbc, vanc trough, and esr. recurrent uti - recent course of macrobid. On trimethoprim chronically. Ok to stop macrobid. Follows with Dr. Guzman with ID for this. Will follow, d/w showcase maker and ortho. I can follow at TCU. Requested lab hold surg cxs for 14 days.
[2020-06-30 16:46] LABS: Bedside Glucose 278 mg/dL (70-110)
[2020-06-30] MEDS: Glucerna Shake 120 ML LIQUID PO (17:21)
[2020-06-30] MEDS: Insulin NPH Human 100 UNITS/ML PEN 10 UNITS SC (17:24)
== END 2020-06-30 18:22 | disposition skilled nursing facility (03) | DRG 470 ==
LOC: ACINP 09:50 → MS3 14:37
PROVIDERS: Anesthesiology; Internal Medicine; Internal Medicine Infectious Disease; Admitting Provider Specialist; PCP Family Medicine; Referring Provider Specialist; Visit Provider Specialist
PROC: 0SRC0J9 Replacement of Right Knee Joint with Synthetic Substitute, Cemented, Open Approach (ICD-10-PCS; CPT 27488; principal; 2020-06-28 11:35)
DX: T84.53XA Infection and inflammatory reaction due to internal right knee prosthesis, initial encounter (principal); Y83.1 Surgical operation with implant of artificial internal device as the cause of abnormal reaction of the patient, or of later complication, without mention of misadventure at the time of the procedure; M65.9 Synovitis and tenosynovitis, unspecified; M19.90 Unspecified osteoarthritis, unspecified site; R01.1 Cardiac murmur, unspecified; D72.828 Other elevated white blood cell count; M25.461 Effusion, right knee; I10 Essential (primary) hypertension; E11.9 Type 2 diabetes mellitus without complications; K21.9 Gastro-esophageal reflux disease without esophagitis; M81.0 Age-related osteoporosis without current pathological fracture; K59.00 Constipation, unspecified; H91.90 Unspecified hearing loss, unspecified ear; H40.9 Unspecified glaucoma; Z72.0 Tobacco use; Z79.4 Long term (current) use of insulin; Z79.82 Long term (current) use of aspirin; Z87.440 Personal history of urinary (tract) infections; Z90.49 Acquired absence of other specified parts of digestive tract; Z90.710 Acquired absence of both cervix and uterus; Z98.51 Tubal ligation status
CPT/HCPCS: 36415; 36569; 73560; 80048; 80202; 82565; 82962; 83735; 85027; 87015; 87070; 87075; 87077; 87081; 87102; 87116; 87176; 87205; 87206; 87635; 93005; 93306; 94762; 97110; 97116; 97162; 97166; 97530; 97535; 97802; 99251; C1776; C9803; J7040; J7050; J7120; Q9957; A4216; C8929; G0463; J0696; J2405; J3260; U0002; U0003

== ENCOUNTER 2020-06-30 18:23 | Inpatient (IN) | payer MEDICARE, OTHER, SELFPAY ==
[2020-06-28 15:05] VITALS: BMI 30.5
[2020-06-30 18:30] VITALS: BP 134/64; PULSE 86; RESP 16; TEMP 36.7; BMI 30.7
--- NOTE | 2020-06-30 19:29 | HP.PCM_ITS ---
Problem List (1) Debility Status: Acute (2) Osteoarthritis of right knee Status: Chronic (3) Infection of prosthetic right knee joint Status: Acute (4) Hypertension Status: Chronic (5) Hearing loss Status: Chronic (6) Osteoporosis Status: Chronic (7) Recurrent UTI Status: Chronic (8) Glaucoma Status: Chronic (9) Atrophic vaginitis Status: Chronic (10) GERD (gastroesophageal reflux disease) Status: Chronic (11) Diabetes Status: Chronic Qualifiers: History of Present Illness Date of Admission: 06/30/20 Chief Complaint: Here for rehabilitation, strengthening, prior to discharge home with . 06/28/20 The patient is a 74 year old Female with below past medical history with right prosthetic knee joint infection. 06/28/20 Orthopedics performed right total knee removal with placement of cement spacer, right knee placement of nonbiodegradable antibiotic delivery system. 06/29/20 Infectious Disease recommended Vancomycin, Ceftriaxone IV via PICC line. Surgical cultures pending, plan 6 weeks of IV antibiotics. 06/30/20 Echo Left ventricular systolic function normal. EF 65%. Right ventricular systolic pressure 45mmHG. 06/30/20 Recurrent UTI, recent treatment with Macrobid, on Trimethoprim c hronically for suppression. 06/30/20 Admit to TCU with debility, here for rehabilitation, strengthening, intravenous antibiotics, prior to discharge home with . Past Medical History Past Medical History (Chronic Problems): Chronic Problems (Last Reviewed 08/24/19 @ 12:[address] Jeremy Harrison MD) Osteoarthritis of right knee (Chronic) Hypertension (Chronic) Hearing loss (Chronic) Osteoporosis (Chronic) Recurrent UTI (Chronic) Glaucoma (Chronic) Atrophic vaginitis (Chronic) GERD (gastroesophageal reflux disease) (Chronic) Diabetes (Chronic) Chronic UTI (urinary tract infection) (Chronic) Essential (primary) hypertension (Chronic) Diabetes type 2, uncontrolled (Chronic) Medical History: Medical History (Last Reviewed 08/24/19 @ 12:[address] Jeremy Harrison MD) Chronic UTI (urinary tract infection) (Chronic) N39.0 Essential (primary) hypertension (Chronic) I10 Diabetes type 2, uncontrolled (Chronic) E11.65 Glaucoma H40.9 Allergies ciprofloxacin Allergy (Severe, Verified 06/28/20 10:22) impairment of motor skills epinephrine [From Xylocaine with Epinephrine] Allergy (Unknown, Verified 06/28/20 10:22) unknown lidocaine [From Xylocaine with Epinephrine] Allergy (Unknown, Verified 06/28/20 10:22) unknown Sulfa (Sulfonamide Antibiotics) Allergy (Unknown, Verified 06/28/20 10:22) unknown metformin Adverse Reaction (Intermediate, Verified 06/28/20 10:22) loose stool, bladder infections sitagliptin [From Janumet] Adverse Reaction (Intermediate, Verified 06/28/20 10:22) loose stool batroxobin Adverse Reaction (Unknown, Verified 06/28/20 10:22) unknown exenatide [From Byetta] Adverse Reaction (Unknown, Verified 06/28/20 10:22) unknown nizatidine [From Axid] Adverse Reaction (Unknown, Verified 06/28/20 10:22) unknown sertraline [From Zoloft] Adverse Reaction (Unknown, Verified 06/28/20 10:22) unknown simvastatin [From Zocor] Adverse Reaction (Unknown, Verified 06/28/20 10:22) unknown trandolapril [From Mavik] Adverse Reaction (Unknown, Verified 06/28/20 10:22) unknown Home Medications: Ambulatory Orders Medication Instructions Recorded hydrochlorothiazide 25 mg tablet 25 mg PO DAILY #30 tab 06/25/19 lisinopril 40 mg tablet 40 mg PO DAILY #90 tab 06/25/19 calcium carbonate 500 mg (1,250 1 tab PO BID 07/20/19 mg)-vitamin D3 125 unit tablet cholecalciferol (vitamin D3) 50 2,000 unit PO DAILY 07/20/19 mcg (2,000 unit) capsule lactobacillus combination no.8 3 3,000 mmu cells PO BID 07/20/19 billion cell capsule omeprazole magnesium 20 mg 20 mg PO DAILY PRN 07/20/19 tablet,delayed release trimethoprim 100 mg tablet 100 mg PO Q12H 07/20/19 glimepiride 4 mg tablet 4 mg PO BID #180 tab 08/24/19 insulin lispro protamine-lispro See Rx Instructions SC TID ml 08/24/19 100 unit/mL (50-50) subcutaneous pen Cyanocobalamin (Vitamin B-12) 1,000 mcg PO DAILY 06/14/20 [Vitamin B-12] Acetaminophen [Tylenol] 1,000 mg PO Q8 06/30/20 Albuterol Aerosols [Ventolin 2.5 mg INHALATION Q2H PRN PRN 06/30/20 Aerosols] vial.neb. Aspirin [Aspirin, Baby] 81 mg PO BIDCM 06/30/20 Calcium Carbonate [Tums] 500 mg PO Q4H PRN PRN tab 06/30/20 Ceftriaxone 2 gm IV Q24 06/30/20 Senna/Docusate Sodium [Senokot-S] 2 tab PO BID 06/30/20 Vancomycin IV 750 mg IV Q12H 06/30/20 traMADol [Ultram] 50 - 100 mg PO Q6H PRN PRN #30 tab 06/30/20 Surgical History: Surgical History (Last Reviewed 08/24/19 @ 12:[address] Jeremy Harrison MD) History of tonsillectomy Z90.89 H/O tubal ligation Z98.51 History of cataract surgery Z98.49 bilateral History of cholecystectomy Z90.49 1974 History of tonsillectomy Z90.89 1950 Surgical History: cataract, cholecystectomy, hysterectomy, tonsillectomy, - - bilateral tubal ligation, left knee arthroscopic surgery, initial right total knee replacement, recent right total knee replacement removal with antibiotic spacer and biodegradable antibiotic delivery system. Psychiatric History: No pertinent psych hx DATA CONVERSION ANALYST History: No pertinent DATA CONVERSION ANALYST history Lives: Spouse/ Significant Other Smoking Status: Never smoker Tobacco Use: Non-smoker Alcohol: None Drugs: None - *Family History Maternal Family History: Family History (Last Reviewed 08/24/19 @ 12:[address] Jeremy Harrison MD) Mother CVA (cerebral vascular accident) Aunt Breast cancer History Items: Heart Disease, Hypertension Paternal Family History: Family History (Last Reviewed 08/24/19 @ 12:[address] Jeremy Harrison MD) Mother CVA (cerebral vascular accident) Aunt Breast cancer History Items: - - Patient notes father passed secondary to complications from an aortic aneurysm while being repaired on the operating table. Review of Systems Constitutional: Denies: Chills, Fever, Weight Change HEENT: Denies: Head Aches, Sinus Congestion, Sinus Drainage Cardiovascular: Denies: Chest Pain, Palpitations Respiratory: Denies: Cough, Shortness of breath at rest, Sputum production Gastrointestinal: Denies: Abdominal Pain, Nausea, Vomiting Genitourinary: Denies: Dysuria Musculoskeletal: Denies: Joint Pain, Joint Tenderness Skin: Denies: Rash, Wounds Neurological: Denies: Numbness, Tingling, Focal weakness Psychiatric: Denies: Anxiety, Depression, Homicidal Ideations, Suicidal Ideations Hematologic/ Lymphatic: Denies: Easy Bruising, Easy Bleeding VTE Information - Inpt Only VTE Present on Admission: No VTE Mechan Device Prophylaxis: Knee High PAKO Hose VTE Pharm Prophylaxis ordered?: Yes Patient Problems: Active and Suspected Problems (Last Reviewed 08/24/19 @ 12:[address] Jeremy Harrison MD) Debility (Acute) Infection of prosthetic right knee joint (Acute) - Physical Exam Vitals/I&O's: Vital Signs Temp Pulse Resp BP 98.0 F 86 16 134/64 H 06/30/20 18:30 06/30/20 18:30 06/30/20 18:30 06/30/20 18:30 Body Mass Index (BMI) 30.5 General: Alert, Oriented x3, Cooperative HEENT: Atraumatic, PERRLA, EOMI, Normocephalic Neck: Supple, No JVD, Negative Carotid Bruits Lungs: Clear to auscultation, Normal air movement Cardiovascular: Regular rate, No murmurs Abdomen: Bowel Sounds Present, Soft, Non Tender Extremities: No edema, Capillary Refill Less than 3 Seconds, - - Right upper extremity PICC line, right knee dressed. Skin: No rashes, No breakdown Musculoskeletal: No Tenderness to Palpation of Joints or Extremities Neurological: Cranial nerves II-XII grossly intact Psych/Mental Status: Normal Affect, Appropriate Assessment/Plan All Active Problems (Last Reviewed 08/24/19 @ 12:[address] Jeremy Harrison MD) Infection of right knee (Acute) Debility (Acute) Infection of prosthetic right knee joint (Acute) 74 year old female with below past medical history hospitalized for right prosthetic knee joint infection, underwent right total knee removal with placement of cement spacer 06/28/20, admitted to TCU with debility, here for rehabilitation, strengthening, intravenous antibiotics, prior to discharge home with . * Debility - PT/OT. * Pain - Tylenol 1000MG Q8H, Tramadol 50MG Q6H PRN pain (1-5), Oxycodone 5MG Q4H PRN pain (6-10). * Bowel - Miralax 17GM daily, Senna/colace 1 tablet BID, MOM 30ML PO daily PRN, Dulcolax 10MG daily PRN. * Adult immunization - Administer Prevnar 13, Pneumovax 23, Fluzone as manny ropriate. * DVT prophylaxis - Aspirin 81MG BID. * Hypertension - Lisinopril 40MG daily, HCTZ 25MG daily. * Calcium deficiency - Calcium D 1 tablet BID. * Vitamin D deficiency - D3 2000IU daily. * GI prophylaxis - Lactobacillus 1 tablet BID. * GERD - Pantoprazole 20MG daily, TUMS 500MG Q4H PRN. * Recurrent UTI - Trimethoprim 100MG daily. * Diabetes Mellitus II - Glimepiride 4MG BID, Humalog 16 AM, 14 Lunch, 22 Dinner. * Vitamin B12 deficiency - B12 1000MCG daily. * Shortness of breath - Albuterol 2.5MG Q2H PRN. * Right prosthetic knee joint infection - Ceftriaxone 2GM IV Q24H, Vancomycin 750MG IV Q12H for 6 weeks, consult Dr. Bowden.
[2020-06-30] MEDS: traMADol 50 MG Tablet PO (21:05)
[2020-06-30 21:51] LABS: Bedside Glucose 281 mg/dL (70-110)
[2020-07-01] MEDS: Trimethoprim 100 MG Tablet PO ×3 (00:41→23:15)
[2020-07-01] MEDS: 0.9% Saline Lock 10 ML Syringe IV ×2 (00:45→23:22)
--- NOTE | 2020-07-01 00:58 | PCM.RX.CS ---
Consult Pharmacy has been consulted to manage selected antiobiotic: Vancomycin Type of Consult: Follow-up Goal Trough: 15-20 mcg/mL Pharmacy Plan for Drug Dosing: Pharmacy Service will continue to monitor and adjust dosing as required. TRANSFERED FROM MS3 TO U CONTINUE CURRENT ORDER Follow-Up Labs: Trough Vancomycin Labs to be done on [date and time ordered]: 08/02 @ 1100
--- NOTE | 2020-07-01 01:30 | NURSING ---
Pt resting in bed, polar care applied to rt knee. Pt refused offer of pain meds at this time, states the polar care usually helps with pain. Lt leg elevated on pillow per pt request.
[2020-07-01 06:26] LABS: Bedside Glucose 146 mg/dL (70-110)
[2020-07-01 06:28] VITALS: BP 130/60; PULSE 62; RESP 18; TEMP 36.7; O2SAT 95
[2020-07-01] MEDS: Polyethylene Glycol 3350 17 GM PACKET PO (06:30)
[2020-07-01] MEDS: Senna/Docusate Sodium 1 Tablet PO ×2 (06:31→18:20)
[2020-07-01] MEDS: Lisinopril 40 MG Tablet PO (06:31)
[2020-07-01] MEDS: hydroCHLOROthiazide 25 MG Tablet PO (06:31)
[2020-07-01] MEDS: Cyanocobalamin 500 MCG Tablet 1000 MCG PO (06:31)
[2020-07-01] MEDS: traMADol 50 MG Tablet PO ×3 (06:36→23:15)
[2020-07-01] MEDS: Calcium Carb/Vitamin D 1 TABLET Tablet PO ×2 (08:12→18:20)
[2020-07-01] MEDS: Glimepiride 4 MG Tablet PO ×2 (08:13→18:20)
[2020-07-01] MEDS: Aspirin 81 MG TAB.CHEW PO ×2 (08:13→18:20)
[2020-07-01 08:38] LABS: Absolute Lymphocyte Count 2.61 X10^3/uL (0.83-4.51); Absolute Neutrophil Count 9.8 X10^3/uL (2.0-7.7); Basophil# 0.05 X10^3/uL; Basophil% 0.4 % (0-1); Eosinophil# 0.97 X10^3/uL; Hematocrit 30.7 % (37-47); Hemoglobin 9.6 g/dL (12.0-15.0); Lymphocyte # 2.61 X10^3/ul (4.0); Lymphocyte % 18.8 % (19-41); Mean Corp Hgb Conc 31.3 g/dL (32-36); Mean Corpuscular Hgb 28.1 pg (27.0-32.0); Mean Corpuscular Volume 89.8 fL (81-99); Mean Platelet Vol. 10.4 fl (6.2-12.0); Monocyte# 0.45 X10^3/uL; Monocyte% 3.2 % (0-10); NRBC Flagged by Analyzer 0 % (0-5); Neutrophil # 9.76 X10^3/uL (2.7-7.7); Neutrophil % 70.1 % (47-70); Platelet Count 306 K/mm3 (150-450); RBC Distribution Width CV 14.9 % (11.6-14.6); RBC Distribution Width SD 48.8 fl (35.1-43.9); Red Blood Count 3.42 M/mm3 (4.2-5.4); White Blood Count 13.9 K/mm3 (4.4-11.0)
[2020-07-01 09:09] LABS: Anion Gap 7 (5-15); BUN 17 mg/dL (7-18); BUN/Creat Ratio 19.6 RATIO (10-20); Calcium,Total 9.2 mg/dL (8.5-10.1); Chloride 105 mmol/L (98-107); Creatinine, Serum 0.87 mg/dL (0.55-1.02); EST Glomerular Filtration Rate 68 mL/min (>60); Est Glom Filt Rate - Afr Amer 82 mL/min (>60); Estimated Creatinine Clearance 53.11 ml/min; Glucose 158 mg/dL (74-106); Sodium Level 138 mmol/L (136-145)
[2020-07-01] MEDS: Insulin NPH Human 100 UNITS/ML PEN 16 UNITS SC (09:42)
[2020-07-01] MEDS: Tuberculin,Purif.prot.deriv. 50 TU/ML Vial 5 ML ID (10:36)
[2020-07-01 11:30] LABS: Bedside Glucose 255 mg/dL (70-110)
[2020-07-01] MEDS: Insulin Lispro 100 UNIT/ML INSULN.PEN 14 UNIT SC (12:07)
[2020-07-01] MEDS: Insulin NPH Human 100 UNITS/ML PEN 14 UNITS SC (12:34)
--- NOTE | 2020-07-01 12:51 | NURSING ---
Resident and spouse, Ezequiel, notified of COVID Outbreak status.
[2020-07-01 14:38] VITALS: BP 132/68; PULSE 74; RESP 18; TEMP 36.4; O2SAT 98
[2020-07-01 16:26] LABS: Bedside Glucose 113 mg/dL (70-110)
[2020-07-01] MEDS: Insulin NPH Human 100 UNITS/ML PEN 22 UNITS SC (18:21)
[2020-07-01] MEDS: Insulin Lispro 100 UNIT/ML INSULN.PEN 22 UNIT SC (18:22)
[2020-07-01] MEDS: Calcium Carbonate 500 MG Tablet PO (19:54)
--- NOTE | 2020-07-01 22:05 | NURSING ---
per HEALTHCARE FINANCIAL ANALYST blood sugar is 54, pt asymptomatic, given orange juice peanut butter and crackers. Will recheck.
[2020-07-01 22:16] LABS: Bedside Glucose 54 mg/dL (70-110)
--- NOTE | 2020-07-01 23:20 | NURSING ---
Blood sugar recheck 86, pt agreeable to drink apple juice, does not want to eat anything more, requested diet james ashlee as well, will continue to monitor. States that usually she can tell when her blood sugar is low, but does not feel any different this time.
[2020-07-02 00:26] LABS: Bedside Glucose 87 mg/dL (70-110)
[2020-07-02 00:26] LABS: Bedside Glucose 86 mg/dL (70-110)
[2020-07-02 01:51] LABS: Bedside Glucose 114 mg/dL (70-110)
--- NOTE | 2020-07-02 03:13 | NURSING ---
Pt resting in bed with eyes closed, appears to be sleeping, polar care in place to rt knee.
[2020-07-02 05:02] VITALS: BP 131/68; PULSE 58; RESP 16; TEMP 36.6; O2SAT 94
[2020-07-02] MEDS: Senna/Docusate Sodium 1 Tablet PO ×2 (05:04→17:17)
[2020-07-02] MEDS: Cyanocobalamin 500 MCG Tablet 1000 MCG PO (05:04)
[2020-07-02] MEDS: Polyethylene Glycol 3350 17 GM PACKET PO (05:04)
[2020-07-02] MEDS: hydroCHLOROthiazide 25 MG Tablet PO (05:05)
[2020-07-02] MEDS: Lisinopril 40 MG Tablet PO (05:05)
[2020-07-02] MEDS: Pantoprazole Sodium 20 MG Tablet PO (05:05)
[2020-07-02 06:31] LABS: Bedside Glucose 87 mg/dL (70-110)
[2020-07-02] MEDS: Aspirin 81 MG TAB.CHEW PO ×2 (08:48→17:16)
[2020-07-02] MEDS: Glimepiride 4 MG Tablet PO ×2 (08:48→17:16)
[2020-07-02] MEDS: Calcium Carb/Vitamin D 1 TABLET Tablet PO ×2 (08:49→17:16)
[2020-07-02] MEDS: Insulin Lispro 100 UNIT/ML INSULN.PEN 16 UNIT SC (08:56)
[2020-07-02 09:46] LABS: Bedside Glucose 221 mg/dL (70-110)
[2020-07-02] MEDS: Trimethoprim 100 MG Tablet PO ×2 (10:52→23:27)
[2020-07-02] MEDS: 0.9% Saline Lock 10 ML Syringe IV ×2 (10:53→23:30)
[2020-07-02 11:29] LABS: Vancomycin, Trough Level 13.5 ug/mL (5.0-15.0)
[2020-07-02 11:35] LABS: Bedside Glucose 154 mg/dL (70-110)
[2020-07-02] MEDS: Insulin Lispro 100 UNIT/ML INSULN.PEN 14 UNIT SC (12:02)
[2020-07-02] MEDS: traMADol 50 MG Tablet PO ×2 (12:09→19:43)
--- NOTE | 2020-07-02 13:18 | PCM.RX.CS ---
Consult Pharmacy has been consulted to manage selected antiobiotic: Vancomycin Type of Consult: Follow-up Prior Doses of Antibiotics Received/Current Regimen: 750mg iv q12h. Labs: Sodium 138 mmol/L (136-145) 07/01/20 07:51 Potassium 4.0 mmol/L (3.5-5.1) 07/01/20 07:51 Chloride 105 mmol/L (98-107) 07/01/20 07:51 Carbon Dioxide 26.0 mmol/L (21.0-32.0) 07/01/20 07:51 Anion Gap 7 (5-15) 07/01/20 07:51 BUN 17 mg/dL (7-18) 07/01/20 07:51 Creatinine 0.87 mg/dL (0.55-1.02) 07/01/20 07:51 Est GFR (MDRD) Af Amer 82 mL/min (>60) 07/01/20 07:51 Est GFR (MDRD) Non-Af 68 mL/min (>60) 07/01/20 07:51 BUN/Creatinine Ratio 19.6 RATIO (-20) 07/01/20 07:51 Glucose 158 mg/dL (74-106) H 07/01/20 07:51 Vancomycin Trough 13.5 ug/mL (5.0-15.0) 07/02/20 10:47 Weight used for dosin.1 kg Estimated Creatinine Clearance: ~63ml/min Goal Trough: 15-20 mcg/mL Pharmacy Plan for Drug Dosing: Trough today 13.5 (goal range 15-20mcg/ml). Renal function from Cr 1.17 to 0.87. Will increase dose to 1gm iv q12h per protocol. Another trough level ordered for 07.04.20 before 4th dose of new regimen. Pharmacy Service will continue to monitor and adjust dosing as required. Follow-Up Labs: Trough Vancomycin - 10.27.20 @1130 before 1200 dose
--- NOTE | 2020-07-02 13:18 | NURSING ---
Pt refusing NPH insulin. States she only takes Humalog at home. Dr. Mccracken updated and NPH insulin d/c'd, continuing to monitor.
[2020-07-02 16:00] VITALS: BP 120/58; PULSE 56; RESP 18; TEMP 36.6; O2SAT 92
[2020-07-02 17:16] LABS: Bedside Glucose 163 mg/dL (70-110)
[2020-07-02 17:35] VITALS: PULSE 56; RESP 18; O2SAT 92
[2020-07-02] MEDS: Insulin Lispro 100 UNIT/ML INSULN.PEN 22 UNIT SC (18:05)
--- NOTE | 2020-07-02 20:42 | CPS ---
RN told BOLT CUTTER that teaching had been done by nursing staff for IS. Patient understands usage and direction of device. Will chart and complete IS order for this reason. 05:35.
[2020-07-02 21:50] LABS: Bedside Glucose 106 mg/dL (70-110)
[2020-07-02] MEDS: Vancomycin IV 1,000 MG/200 ML BAG 200 MG IV (23:33)
[2020-07-03] MEDS: traMADol 50 MG Tablet PO ×3 (02:50→18:00)
[2020-07-03 04:27] VITALS: BP 143/55; PULSE 67; RESP 18; TEMP 36.8; O2SAT 94
[2020-07-03] MEDS: Cyanocobalamin 500 MCG Tablet 1000 MCG PO (04:29)
[2020-07-03] MEDS: Polyethylene Glycol 3350 17 GM PACKET PO (04:29)
[2020-07-03] MEDS: Senna/Docusate Sodium 1 Tablet PO ×2 (04:29→18:00)
[2020-07-03] MEDS: Lisinopril 40 MG Tablet PO (04:29)
[2020-07-03] MEDS: Pantoprazole Sodium 20 MG Tablet PO (04:29)
[2020-07-03] MEDS: hydroCHLOROthiazide 25 MG Tablet PO (04:29)
[2020-07-03] MEDS: oxyCODONE 5 MG Tablet PO (06:01)
[2020-07-03 06:35] LABS: Bedside Glucose 143 mg/dL (70-110)
[2020-07-03] MEDS: Calcium Carb/Vitamin D 1 TABLET Tablet PO ×2 (08:49→18:00)
[2020-07-03] MEDS: Aspirin 81 MG TAB.CHEW PO ×2 (08:50→18:00)
[2020-07-03] MEDS: Glimepiride 4 MG Tablet PO ×2 (08:50→18:00)
[2020-07-03] MEDS: Insulin Lispro 100 UNIT/ML INSULN.PEN 16 UNIT SC (08:51)
[2020-07-03] MEDS: 0.9% Saline Lock 10 ML Syringe IV ×3 (09:50→23:17)
[2020-07-03 10:00] VITALS: PULSE 57; RESP 18; O2SAT 91
[2020-07-03] MEDS: Trimethoprim 100 MG Tablet PO ×2 (10:49→23:16)
[2020-07-03 11:15] LABS: Bedside Glucose 126 mg/dL (70-110)
[2020-07-03] MEDS: Vancomycin IV 1,000 MG/200 ML BAG 200 MG IV ×2 (11:57→23:17)
[2020-07-03] MEDS: Insulin Lispro 100 UNIT/ML INSULN.PEN 14 UNIT SC (11:59)
[2020-07-03 13:25] VITALS: BP 116/44; PULSE 62; RESP 14; TEMP 37.1; O2SAT 90
--- NOTE | 2020-07-03 14:23 | PHA.CONS_ITS ---
<GisselleasherRosemary M - Last Filed: 07/03/20 14:23> Progress Note - Pharmacy Subjective: TCU ADMISSION Objective: Allergies ciprofloxacin Allergy (Severe, Verified 06/28/20 10:22) impairment of motor skills epinephrine [From Xylocaine with Epinephrine] Allergy (Unknown, Verified 06/28/20 10:22) unknown lidocaine [From Xylocaine with Epinephrine] Allergy (Unknown, Verified 06/28/20 10:22) unknown Sulfa (Sulfonamide Antibiotics) Allergy (Unknown, Verified 06/28/20 10:22) unknown metformin Adverse Reaction (Intermediate, Verified 06/28/20 10:22) loose stool, bladder infections sitagliptin [From Janumet] Adverse Reaction (Intermediate, Verified 06/28/20 10:22) loose stool batroxobin Adverse Reaction (Unknown, Verified 06/28/20 10:22) unknown exenatide [From Byetta] Adverse Reaction (Unknown, Verified 06/28/20 10:22) unknown nizatidine [From Axid] Adverse Reaction (Unknown, Verified 06/28/20 10:22) unknown sertraline [From Zoloft] Adverse Reaction (Unknown, Verified 06/28/20 10:22) unknown simvastatin [From Zocor] Adverse Reaction (Unknown, Verified 06/28/20 10:22) unknown trandolapril [From Mavik] Adverse Reaction (Unknown, Verified 06/28/20 10:22) unknown Current Medications Generic Name Dose Route Start Last Admin Trade Name Freq PRN Reason Stop Dose Admin Aspirin 81 mg 07/01/20 08:00 07/03/20 08:50 Aspirin 81 Mg Tab.Chew PO 81 mg BIDCM [facility] Administration Bisacodyl 10 mg 06/30/20 19:51 Bisacodyl 10 Mg Suppository RECTAL DAILY PRN Constipation Calamine/Phenol 1 applic 07/03/20 22:00 Menthol/Lanolin/Calamine/Znox 113 Gm Tube TOPICAL 0600,2200 [facility] Protocol Calcium Carbonate 500 mg 06/30/20 23:00 07/01/20 19:54 Calcium Carbonate 500 Mg Tablet PO 500 mg Q4H PRN PRN Administration HEARTBURN Calcium/Vitamin D 1 tablet 07/01/20 08:00 07/03/20 08:49 Calcium Carb/Vitamin D 1 Tablet Tablet PO 1 tablet BIDCM [facility] Administration Cholecalciferol 2,000 unit 07/01/20 06:00 07/03/20 04:29 Cholecalciferol (Vit D3) 1,000 Unit (25mcg) PO 2,000 unit DAILY RAEANN Administration Cyanocobalamin 1,000 mcg 07/01/20 06:00 07/03/20 04:29 Cyanocobalamin 500 Mcg Tablet PO 1,000 mcg DAILY RAEANN Administration Glimepiride 4 mg 07/01/20 08:00 07/03/20 08:50 Glimepiride 4 Mg Tablet PO 4 mg BIDCM RAEANN Administration Heparin Sodium (Beef Lung) 50 units 06/30/20 22:42 Heparin Pf Lock 10 Units/Ml 50 Units/5 Ml Syringe IV UD PRN PICC Line Heparin Flush Hydrochlorothiazide 25 mg 07/01/20 06:00 07/03/20 04:29 Hydrochlorothiazide 25 Mg Tablet PO 25 mg DAILY RAEANN Administration Ceftriaxone Sodium 2 gm/ 50 mls @ 100 mls/hr 07/01/20 10:00 07/03/20 10:54 Sodium Chloride IV 08/09/20 10:01 Infused Q24 RAEANN Infusion Sodium Chloride 250 mls @ 15 mls/hr 06/30/20 23:37 07/03/20 00:00 IV 0 mls/hr .[id number] PRN Infusion Saline Flush Sodium Chloride 250 mls @ 15 mls/hr 06/30/20 23:37 IV .[id number] PRN Additional IVPB Infusion Vancomycin HCl 1,000 mg in 200 mls @ 200 mls/hr 07/03/20 00:00 07/03/20 13:58 Vancomycin IV 08/10/20 00:01 Infused Q12H RAEANN Infusion Insulin Human Lispro 16 unit 07/01/20 08:00 07/03/20 08:51 Insulin Lispro 100 Unit/Ml Insuln.Pen SC 16 u BREAKFAST RAEANN Administration Insulin Human Lispro 14 unit 07/01/20 12:00 07/03/20 11:59 Insulin Lispro 100 Unit/Ml Insuln.Pen SC 14 u LUNCH RAEANN Administration Insulin Human Lispro 22 unit 07/01/20 17:00 07/02/20 18:05 Insulin Lispro 100 Unit/Ml Insuln.Pen SC 22 u DINNER RAEANN Administration Lactobacillus Acidophilus 1 tablet 07/01/20 06:00 07/03/20 04:29 Lactobacillus Acidophilus PO 1 tablet BID RAEANN Administration Lisinopril 40 mg 07/01/20 06:00 07/03/20 04:29 Lisinopril 40 Mg Tablet PO 40 mg DAILY RAEANN Administration Magnesium Hydroxide 30 ml 06/30/20 19:51 Magnesium Hydroxide 30 Ml Udc PO DAILY PRN Constipation Oxycodone HCl 5 mg 06/30/20 19:50 07/03/20 06:01 Oxycodone 5 Mg Tablet PO 5 mg Q4H PRN PRN Administration Pain Score 6-10 Pantoprazole Sodium 20 mg 06/30/20 23:08 07/03/20 04:29 Pantoprazole Sodium 20 Mg Tablet PO 20 mg DAILY PRN Administration HEARTBURN Polyethylene Glycol 17 gm 07/01/20 06:00 07/03/20 04:29 Polyethylene Glycol 3350 17 Gm Packet PO 17 gm DAILY RAEANN Administration Senna/Docusate Sodium 1 tablet 07/01/20 06:00 07/03/20 04:29 Senna/Docusate Sodium 1 Tablet PO 1 tablet BID RAEANN Administration Sodium Chloride 10 - 40 ml 06/30/20 22:42 07/03/20 11:57 0.9% Saline Lock 10 Ml Syringe IV 20 ml UD PRN Administration Open End PICC Flush Sodium Chloride 10 - 40 ml 06/30/20 22:42 0.9 % Nacl (Sterile) Posiflush 10 Ml IV UD PRN Port access or dressing change Tramadol HCl 50 mg 06/30/20 19:50 07/03/20 12:04 Tramadol 50 Mg Tablet PO 50 mg Q6H PRN PRN Administration Pain Score 1-5 Trimethoprim 100 mg 06/30/20 23:15 07/03/20 10:49 Trimethoprim 100 Mg Tablet PO 100 mg Q12H RAEANN Administration Tuberculin PPD 5 tu 07/08/20 10:00 Tuberculin,Purif.Prot.Deriv. 50 Tu/Ml Vial ID 07/08/20 10:01 X1 ONE Problem List (Last Reviewed 08/24/19 @ 12:[address] 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) Hypertension (Chronic) Hearing loss (Chronic) Osteoporosis (Chronic) Recurrent UTI (Chronic) Glaucoma (Chronic) Atrophic vaginitis (Chronic) GERD (gastroesophageal reflux disease) (Chronic) Diabetes (Chronic) Vital Signs Temp Pulse Resp BP Pulse Ox 98.7 F 62 14 116/44 L 90 07/03/20 13:25 07/03/20 13:25 07/03/20 13:25 07/03/20 13:25 07/03/20 13:25 Oxygen Delivery Method Room Air Weight: 86.183 kg Body Mass Index (BMI) 30.7 Sodium 138 mmol/L (136-145) 07/01/20 07:51 Potassium 4.0 mmol/L (3.5-5.1) 07/01/20 07:51 Chloride 105 mmol/L (98-107) 07/01/20 07:51 Carbon Dioxide 26.0 mmol/L (21.0-32.0) 07/01/20 07:51 Anion Gap 7 (5-15) 07/01/20 07:51 BUN 17 mg/dL (7-18) 07/01/20 07:51 Creatinine 0.87 mg/dL (0.55-1.02) 07/01/20 07:51 Est GFR (MDRD) Af Amer 82 mL/min (>60) 07/01/20 07:51 Est GFR (MDRD) Non-Af 68 mL/min (>60) 07/01/20 07:51 BUN/Creatinine Ratio 19.6 RATIO (-) 07/01/20 07:51 Glucose 158 mg/dL (74-106) H 07/01/20 07:51 Vancomycin Trough 13.5 ug/mL (5.0-15.0) 07/02/20 10:47 Assessment/Plan: 1. Pain: Tramadol 50mg PO Q6H PRN pain score 1-5/10 , Oxycodone 5mg PO Q4H PRN pain score 6-10/10. Please monitor for improvement/worsening of pain and PRN medication use. 2. DVT prophylaxis : Aspirin 81mg PO BID. Please continue to monitor for S/S bleeding and bruising. 3. Hypertension: Hydrochlorothiazide 25mg PO daily, Lisinopril 40mg PO daily. Please monitor BP( last BP 07/03/20; 116/44) , SCr/BUN, and electrolyte levels 4. Diabetes Mellitus II: Glimepiride 4mg PO BID , Humalog U100 16 units SC with breakfast, 14units SC with lunch, and 22 units SC with dinner. [place] continue to monitor for S/S hypoglycemia, BG levels, and A1c every 3 months as clinically indicated. 5. GERD: Pantoprazole 20mg PO daily PRN heartburn , TUMS 500mg PO Q4H PRN heartburn. Please monitor for improvement/worsening of GERD and PRN use 6. Recurrent UTI: Trimethoprim 100mg PO Q12H. Please monitor for S/S of UTI improvement/worsening. 7. Right prosthetic knee joint infection: ceftriaxone 2gm IV Q24H , Vancomycin 1000mg IV Q12H for 6 weeks. Please monitor vancomycin trough levels ,SCr/BUN, and improvement/worsening of infection. 8. General Health: Calcium/Vitamin D 1 tablet PO BID, Vitamin D3 2000unit PO daily , Vitamin B12 1000mcg PO daily, Lactobacillus 1 tablet PO BID. Psychotropic Medications: None Unnecessary Medications: None Bowel Regimen: Bisacodyl 10mg [place] daily PRN constipation, MOM 30mL PO daily PRN constipation, Miralax 17gm PO daily , Senna/colace 1 tablet PO BID. Please monitor S/S const ipation/diarrhea and PRN medication use Date of Note:: 07/03/20 - Provider Comments Provider responsibility: Provider responsible to enter orders to implement recommendations <Ra Mccracken Chi - Last Filed: 07/03/20 15:08> Progress Note - Pharmacy Subjective: [] Objective: Allergies ciprofloxacin Allergy (Severe, Verified 06/28/20 10:22) impairment of motor skills epinephrine [From Xylocaine with Epinephrine] Allergy (Unknown, Verified 06/28/20 10:22) unknown lidocaine [From Xylocaine with Epinephrine] Allergy (Unknown, Verified 06/28/20 10:22) unknown Sulfa (Sulfonamide Antibiotics) Allergy (Unknown, Verified 06/28/20 10:22) unknown metformin Adverse Reaction (Intermediate, Verified 06/28/20 10:22) loose stool, bladder infections sitagliptin [From Janumet] Adverse Reaction (Intermediate, Verified 06/28/20 10:22) loose stool batroxobin Adverse Reaction (Unknown, Verified 06/28/20 10:22) unknown exenatide [From Byetta] Adverse Reaction (Unknown, Verified 06/28/20 10:22) unknown nizatidine [From Axid] Adverse Reaction (Unknown, Verified 06/28/20 10:22) unknown sertraline [From Zoloft] Adverse Reaction (Unknown, Verified 06/28/20 10:22) unknown simvastatin [From Zocor] Adverse Reaction (Unknown, Verified 06/28/20 10:22) unknown trandolapril [From Mavik] Adverse Reaction (Unknown, Verified 06/28/20 10:22) unknown Current Medications Generic Name Dose Route Start Last Admin Trade Name Freq PRN Reason Stop Dose Admin Aspirin 81 mg 07/01/20 08:00 07/03/20 08:50 Aspirin 81 Mg Tab.Chew PO 81 mg BIDCM RAEANN Administration Bisacodyl 10 mg 06/30/20 19:51 Bisacodyl 10 Mg Suppository RECTAL DAILY PRN Constipation Calamine/Phenol 1 applic 07/03/20 22:00 Menthol/Lanolin/Calamine/Znox 113 Gm Tube TOPICAL 0600,2200 [facility] Protocol Calcium Carbonate 500 mg 06/30/20 23:00 07/01/20 19:54 Calcium Carbonate 500 Mg Tablet PO 500 mg Q4H PRN PRN Administration HEARTBURN Calcium/Vitamin D 1 tablet 07/01/20 08:00 07/03/20 08:49 Calcium Carb/Vitamin D 1 Tablet Tablet PO 1 tablet BIDCM [facility] Administration Cholecalciferol 2,000 unit 07/01/20 06:00 07/03/20 04:29 Cholecalciferol (Vit D3) 1,000 Unit (25mcg) PO 2,000 unit DAILY RAEANN Administration Cyanocobalamin 1,000 mcg 07/01/20 06:00 07/03/20 04:29 Cyanocobalamin 500 Mcg Tablet PO 1,000 mcg DAILY RAEANN Administration Glimepiride 4 mg 07/01/20 08:00 07/03/20 08:50 Glimepiride 4 Mg Tablet PO 4 mg BIDCM RAEANN Administration Heparin Sodium (Beef Lung) 50 units 06/30/20 22:42 Heparin Pf Lock 10 Units/Ml 50 Units/5 Ml Syringe IV UD PRN PICC Line Heparin Flush Hydrochlorothiazide 25 mg 07/01/20 06:00 07/03/20 04:29 Hydrochlorothiazide 25 Mg Tablet PO 25 mg DAILY RAEANN Administration Ceftriaxone Sodium 2 gm/ 50 mls @ 100 mls/hr 07/01/20 10:00 07/03/20 10:54 Sodium Chloride IV 08/09/20 10:01 Infused Q24 RAEANN Infusion Sodium Chloride 250 mls @ 15 mls/hr 06/30/20 23:37 07/03/20 00:00 IV 0 mls/hr .[id number] PRN Infusion Saline Flush Sodium Chloride 250 mls @ 15 mls/hr 06/30/20 23:37 IV .[id number] PRN Additional IVPB Infusion Vancomycin HCl 1,000 mg in 200 mls @ 200 mls/hr 07/03/20 00:00 07/03/20 13:58 Vancomycin IV 08/10/20 00:01 Infused Q12H RAEANN Infusion Insulin Human Lispro 16 unit 07/01/20 08:00 07/03/20 08:51 Insulin Lispro 100 Unit/Ml Insuln.Pen SC 16 u BREAKFAST RAEANN Administration Insulin Human Lispro 14 unit 07/01/20 12:00 07/03/20 11:59 Insulin Lispro 100 Unit/Ml Insuln.Pen SC 14 u LUNCH RAEANN Administration Insulin Human Lispro 22 unit 07/01/20 17:00 07/02/20 18:05 Insulin Lispro 100 Unit/Ml Insuln.Pen SC 22 u DINNER RAEANN Administration Lactobacillus Acidophilus 1 tablet 07/01/20 06:00 07/03/20 04:29 Lactobacillus Acidophilus PO 1 tablet BID RAEANN Administration Lisinopril 40 mg 07/01/20 06:00 07/03/20 04:29 Lisinopril 40 Mg Tablet PO 40 mg DAILY RAEANN Administration Magnesium Hydroxide 30 ml 06/30/20 19:51 Magnesium Hydroxide 30 Ml Udc PO DAILY PRN Constipation Oxycodone HCl 5 mg 06/30/20 19:50 07/03/20 06:01 Oxycodone 5 Mg Tablet PO 5 mg Q4H PRN PRN Administration Pain Score 6-10 Pantoprazole Sodium 20 mg 06/30/20 23:08 07/03/20 04:29 Pantoprazole Sodium 20 Mg Tablet PO 20 mg DAILY PRN Administration HEARTBURN Polyethylene Glycol 17 gm 07/01/20 06:00 07/03/20 04:29 Polyethylene Glycol 3350 17 Gm Packet PO 17 gm DAILY RAEANN Administration Senna/Docusate Sodium 1 tablet 07/01/20 06:00 07/03/20 04:29 Senna/Docusate Sodium 1 Tablet PO 1 tablet BID RAEANN Administration Sodium Chloride 10 - 40 ml 06/30/20 22:42 07/03/20 11:57 0.9% Saline Lock 10 Ml Syringe IV 20 ml UD PRN Administration Open End PICC Flush Sodium Chloride 10 - 40 ml 06/30/20 22:42 0.9 % Nacl (Sterile) Posiflush 10 Ml IV UD PRN Port access or dressing change Tramadol HCl 50 mg 06/30/20 19:50 07/03/20 12:04 Tramadol 50 Mg Tablet PO 50 mg Q6H PRN PRN Administration Pain Score 1-5 Trimethoprim 100 mg 06/30/20 23:15 07/03/20 10:49 Trimethoprim 100 Mg Tablet PO 100 mg Q12H RAEANN Administration Tuberculin PPD 5 tu 07/08/20 10:00 Tuberculin,Purif.Prot.Deriv. 50 Tu/Ml Vial ID 07/08/20 10:01 X1 ONE Problem List (Last Reviewed 08/24/19 @ 12:[address] 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) Hypertension (Chronic) Hearing loss (Chronic) Osteoporosis (Chronic) Recurrent UTI (Chronic) Glaucoma (Chronic) Atrophic vaginitis (Chronic) GERD (gastroesophageal reflux disease) (Chronic) Diabetes (Chronic) Vital Signs Temp Pulse Resp BP Pulse Ox 98.7 F 62 14 116/44 L 90 07/03/20 13:25 07/03/20 13:25 07/03/20 13:25 07/03/20 13:25 07/03/20 13:25 Oxygen Delivery Method Room Air Weight: 86.183 kg Body Mass Index (BMI) 30.7 Sodium 138 mmol/L (136-145) 07/01/20 07:51 Potassium 4.0 mmol/L (3.5-5.1) 07/01/20 07:51 Chloride 105 mmol/L (98-107) 07/01/20 07:51 Carbon Dioxide 26.0 mmol/L (21.0-32.0) 07/01/20 07:51 Anion Gap 7 (5-15) 07/01/20 07:51 BUN 17 mg/dL (7-18) 07/01/20 07:51 Creatinine 0.87 mg/dL (0.55-1.02) 07/01/20 07:51 Est GFR (MDRD) Af Amer 82 mL/min (>60) 07/01/20 07:51 Est GFR (MDRD) Non-Af 68 mL/min (>60) 07/01/20 07:51 BUN/Creatinine Ratio 19.6 RATIO (-) 07/01/20 07:51 Glucose 158 mg/dL (74-106) H 07/01/20 07:51 Vancomycin Trough 13.5 ug/mL (5.0-15.0) 07/02/20 10:47 Assessment/Plan: Psychotropic Medications: Unnecessary Medications: Bowel Regimen: - Provider Comments Provider responsibility: Provider responsible to enter orders to implement recommendations Provider Comments to Recommendations by Pharmacy: Agree
[2020-07-03 16:25] LABS: Bedside Glucose 74 mg/dL (70-110)
--- NOTE | 2020-07-03 17:33 | PN.ID_ITS ---
Patient Problems: Active and Suspected Problems (Last Reviewed 08/24/19 @ 12:[address] Jeremy Harrison MD) Debility (Acute) Infection of prosthetic right knee joint (Acute) Subjective: Feeling ok, no fever, knee pain controlled, no n/v/d. - Physical Exam Vitals/I&O's: Vital Signs Temp Pulse Resp BP Pulse Ox 98.7 F 62 14 116/44 L 90 07/03/20 13:25 07/03/20 13:25 07/03/20 13:25 07/03/20 13:25 07/03/20 13:25 Oxygen Delivery Method Room Air Weight: 86.183 kg Body Mass Index (BMI) 30.7 Intake and Output for Last 24 Hours 07/01/20 07/02/20 07/03/20 23:59 23:59 23:59 Intake Total 1221.67 / 1221.67 1300 / 1307.5 1057.5 / 1057.5 Balance 1221.67 / 1221.67 1300 / 1307.5 1057.5 / 1057.5 General: Alert, Cooperative, No apparent distress Lungs: Clear to auscultation, Normal air movement Cardiovascular: Regular rate, Regular Rhythm Abdomen: Soft, Non Tender, Non-Distended Skin: No rashes Musculoskeletal: No Tenderness to Palpation of Joints or Extremities Microbiology Past 72 Hours 07/03/20 11:04 Mucosa - Nose - Final Laboratory Results 07/02/20 21:34: POC Glucose 106 07/03/20 06:20: POC Glucose 143 H 07/03/20 11:11: POC Glucose 126 H 07/03/20 16:20: POC Glucose 74 Current Medications Aspirin (Aspirin 81 Mg Tab.Chew) 81 mg PO BIDCM [facility] Last Admin: 07/03/20 08:50 Dose: 81 mg Documented by: Bisacodyl (Bisacodyl 10 Mg Suppository) 10 mg RECTAL DAILY PRN PRN Reason: Constipation Calamine/Phenol (Menthol/Lanolin/Calamine/Znox 113 Gm Tube) 1 applic TOPICAL 0600,2200 [facility]; Protocol Calcium Carbonate (Calcium Carbonate 500 Mg Tablet) 500 mg PO Q4H PRN PRN PRN Reason: HEARTBURN Last Admin: 07/01/20 19:54 Dose: 500 mg Documented by: Calcium/Vitamin D (Calcium Carb/Vitamin D 1 Tablet Tablet) 1 tablet PO BIDCM [facility] Last Admin: 07/03/20 08:49 Dose: 1 tablet Documented by: Cholecalciferol (Cholecalciferol (Vit D3) 1,000 Unit (25mcg)) 2,000 unit PO DAILY [facility] Last Admin: 07/03/20 04:29 Dose: 2,000 unit Documented by: Cyanocobalamin (Cyanocobalamin 500 Mcg Tablet) 1,000 mcg PO DAILY [facility] Last Admin: 07/03/20 04:29 Dose: 1,000 mcg Documented by: Glimepiride (Glimepiride 4 Mg Tablet) 4 mg PO BIDCM [facility] Last Admin: 07/03/20 08:50 Dose: 4 mg Documented by: Heparin Sodium (Beef Lung) (Heparin Pf Lock 10 Units/Ml 50 Units/5 Ml Syringe) 50 units IV UD PRN PRN Reason: PICC Line Heparin Flush Hydrochlorothiazide (Hydrochlorothiazide 25 Mg Tablet) 25 mg PO DAILY [facility] Last Admin: 07/03/20 04:29 Dose: 25 mg Documented by: Ceftriaxone Sodium 2 gm/ (Sodium Chloride) 50 mls @ 100 mls/hr IV Q24 [facility] Stop: 08/09/20 10:01 Last Infusion: 07/03/20 10:54 Dose: Infused Documented by: Sodium Chloride () 250 mls @ 15 mls/hr IV .[id number] PRN PRN Reason: Saline Flush Last Infusion: 07/03/20 00:00 Dose: 0 mls/hr Documented by: Sodium Chloride () 250 mls @ 15 mls/hr IV .[id number] PRN PRN Reason: Additional IVPB Infusion Vancomycin HCl (Vancomycin) 1,000 mg in 200 mls @ 200 mls/hr IV Q12H [facility] Stop: 08/10/20 00:01 Last Infusion: 07/03/20 13:58 Dose: Infused Documented by: Insulin Human Lispro (Insulin Lispro 100 Unit/Ml Insuln.Pen) 16 unit SC BREAKFAST [facility] Last Admin: 07/03/20 08:51 Dose: 16 u Documented by: Insulin Human Lispro (Insulin Lispro 100 Unit/Ml Insuln.Pen) 14 unit SC LUNCH [facility] Last Admin: 07/03/20 11:59 Dose: 14 u Documented by: Insulin Human Lispro (Insulin Lispro 100 Unit/Ml Insuln.Pen) 22 unit SC DINNER [facility] Last Admin: 07/02/20 18:05 Dose: 22 u Documented by: Lactobacillus Acidophilus (Lactobacillus Acidophilus) 1 tablet PO BID [facility] Last Admin: 07/03/20 04:29 Dose: 1 tablet Documented by: Lisinopril (Lisinopril 40 Mg Tablet) 40 mg PO DAILY [facility] Last Admin: 07/03/20 04:29 Dose: 40 mg Documented by: Magnesium Hydroxide (Magnesium Hydroxide 30 Ml Udc) 30 ml PO DAILY PRN PRN Reason: Constipation Oxycodone HCl (Oxycodone 5 Mg Tablet) 5 mg PO Q4H PRN PRN PRN Reason: Pain Score 6-10 Last Admin: 07/03/20 06:01 Dose: 5 mg Documented by: Pantoprazole Sodium (Pantoprazole Sodium 20 Mg Tablet) 20 mg PO DAILY PRN PRN Reason: HEARTBURN Last Admin: 07/03/20 04:29 Dose: 20 mg Documented by: Polyethylene Glycol (Polyethylene Glycol 3350 17 Gm Packet) 17 gm PO DAILY [facility] Last Admin: 07/03/20 04:29 Dose: 17 gm Documented by: Senna/Docusate Sodium (Senna/Docusate Sodium 1 Tablet) 1 tablet PO BID [facility] Last Admin: 07/03/20 04:29 Dose: 1 tablet Documented by: Sodium Chloride (0.9% Saline Lock 10 Ml Syringe) 10 - 40 ml IV UD PRN PRN Reason: Open End PICC Flush Last Admin: 07/03/20 11:57 Dose: 20 ml Documented by: Sodium Chloride (0.9 % Nacl (Sterile) Posiflush 10 Ml) 10 - 40 ml IV UD PRN PRN Reason: Port access or dressing change Tramadol HCl (Tramadol 50 Mg Tablet) 50 mg PO Q6H PRN PRN PRN Reason: Pain Score 1-5 Last Admin: 07/03/20 12:04 Dose: 50 mg Documented by: Trimethoprim (Trimethoprim 100 Mg Tablet) 100 mg PO Q12H [facility] Last Admin: 07/03/20 10:49 Dose: 100 mg Documented by: Tuberculin PPD (Tuberculin,Purif.Prot.Deriv. 50 Tu/Ml Vial) 5 tu ID X1 ONE Stop: 07/08/20 10:01 Medical Necessity - Tobacco Use Smoking Status: Never smoker Tobacco Use: Non-smoker Route of nutrition/ use of supplements: [] Nutritional Intake: [] IV Site: [] Morrell Catheter: [] - Assessment/Plan Antibiotics: [] Assessment/Plan: [] Active and Suspected Problems (Last Reviewed 08/24/19 @ 12:[address] 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 Casillas. Surg cx neg so far, requested hold for 14 days. Cont vanc/ceftriaxone for now. Plan will be for 6 weeks iv abx at discharge, stop date 08/09/20. Weekly bmp, cbc, vanc trough, and esr. recurrent uti - recent course of macrobid. On trimethoprim chronically. Will follow
--- NOTE | 2020-07-03 17:33 | NURSING ---
Spouse, Ezequiel, notified of negative COVID results.
--- NOTE | 2020-07-03 18:05 | NURSING ---
Addendum entered by Hedy Chan 07/03/20 18:06: placed a saline lock in LT arm to keep ATBs on schedule. Original Note: dual lumen picc occluded, supervisor melt house reminded that pt needs cathflo. dr lim aware as well.
--- NOTE | 2020-07-03 18:39 | NURSING ---
dr lim notified of low bs tonight at supper 74. new order to hold humalog, decreased insulin starting tomorrow AM
[2020-07-03 21:36] LABS: Bedside Glucose 186 mg/dL (70-110)
[2020-07-03] MEDS: Menthol/Lanolin/Calamine/Znox 113 GM Tube 1 APPLIC TOPICAL (23:19)
--- NOTE | 2020-07-04 03:52 | NURSING ---
reminded child care supervisor of need to administer cathflow to occluded picc, pt has periperal sl in left wrist, pt awake most of night, message for dr for something to assist with sleep
[2020-07-04] MEDS: Alteplase 2 MG/2 ML Vial IV (04:49)
[2020-07-04] MEDS: traMADol 50 MG Tablet PO ×3 (05:00→21:25)
[2020-07-04] MEDS: Polyethylene Glycol 3350 17 GM PACKET PO (05:00)
[2020-07-04] MEDS: Senna/Docusate Sodium 1 Tablet PO ×2 (05:01→18:18)
[2020-07-04] MEDS: hydroCHLOROthiazide 25 MG Tablet PO (05:01)
[2020-07-04] MEDS: Cyanocobalamin 500 MCG Tablet 1000 MCG PO (05:01)
[2020-07-04] MEDS: Pantoprazole Sodium 20 MG Tablet PO (05:01)
[2020-07-04] MEDS: Menthol/Lanolin/Calamine/Znox 113 GM Tube 1 APPLIC TOPICAL ×2 (05:01→21:26)
[2020-07-04] MEDS: Lisinopril 40 MG Tablet PO (05:01)
[2020-07-04 05:12] VITALS: BP 153/63; PULSE 63; RESP 16; TEMP 36.6; O2SAT 98
[2020-07-04 06:26] LABS: Bedside Glucose 167 mg/dL (70-110)
--- NOTE | 2020-07-04 07:01 | NURSING ---
Addendum entered by Hedy Chan 07/04/20 07:19: dramatic critic returned call and ETA 1130 & 1230. Original Note: RN watermelon harvesting supervisor unable to administer cathflo via Picc line. Dr Mccracken updated, new order for new line if needed.
[2020-07-04] MEDS: Calcium Carb/Vitamin D 1 TABLET Tablet PO ×2 (08:57→18:17)
[2020-07-04] MEDS: Aspirin 81 MG TAB.CHEW PO ×2 (08:58→18:17)
[2020-07-04] MEDS: Glimepiride 4 MG Tablet PO ×2 (08:58→18:17)
[2020-07-04 11:15] LABS: Bedside Glucose 212 mg/dL (70-110)
[2020-07-04] MEDS: Trimethoprim 100 MG Tablet PO ×2 (11:29→23:17)
[2020-07-04] MEDS: Insulin Lispro 100 UNIT/ML INSULN.PEN 10 UNIT SC ×2 (11:30→18:19)
[2020-07-04] MEDS: 0.9% Saline Lock 10 ML Syringe IV ×3 (11:34→23:21)
[2020-07-04 12:20] LABS: Vancomycin, Trough Level 17.8 ug/mL (5.0-15.0)
--- NOTE | 2020-07-04 12:56 | PCM.RX.CS ---
Consult Pharmacy has been consulted to manage selected antiobiotic: Vancomycin Type of Consult: Follow-up Labs: Sodium 138 mmol/L (136-145) 07/01/20 07:51 Potassium 4.0 mmol/L (3.5-5.1) 07/01/20 07:51 Chloride 105 mmol/L (98-107) 07/01/20 07:51 Carbon Dioxide 26.0 mmol/L (21.0-32.0) 07/01/20 07:51 Anion Gap 7 (5-15) 07/01/20 07:51 BUN 17 mg/dL (7-18) 07/01/20 07:51 Creatinine 0.87 mg/dL (0.55-1.02) 07/01/20 07:51 Est GFR (MDRD) Af Amer 82 mL/min (>60) 07/01/20 07:51 Est GFR (MDRD) Non-Af 68 mL/min (>60) 07/01/20 07:51 BUN/Creatinine Ratio 19.6 RATIO (-20) 07/01/20 07:51 Glucose 158 mg/dL (74-106) H 07/01/20 07:51 Vancomycin Trough 17.8 ug/mL (5.0-15.0) H 07/04/20 11:46 Microbiology: Microbiology 07/03/20 11:04 Mucosa - Nose - Final Goal Trough: 15-20 mcg/mL Pharmacy Plan for Drug Dosing: VANCOMYCIN LEVEL RECEIVED Current Vancomycin Dose: 1000mg IV Q12hr Number of Doses Received: 3 Vancomycin Level: 17.8 Hours Since Last Dose: 11.5hr Renal Function: NNL Renal Function Trend: NNL Vancomycin Plan/Comments: Patient had a trough drawn which resulted in a value of 17.8 (drawn ~11.5hrs from last administered dose). This is within the patient's goal trough range of 15-20. Will continue current dosing and check another trough in 4 days per protocol. Pending Level: 07/08/20 @1130 Pharmacy Service will continue to monitor and adjust dosing as required.
[2020-07-04] MEDS: Vancomycin IV 1,000 MG/200 ML BAG 200 MG IV ×2 (13:18→23:27)
[2020-07-04 13:23] VITALS: PULSE 18; RESP 16; O2SAT 95
[2020-07-04 14:27] VITALS: BP 145/39; PULSE 57; RESP 18; TEMP 36.2; O2SAT 96
--- NOTE | 2020-07-04 15:57 | NURSING ---
Resident and spouse, Ezequiel notified of staff member testing positive for COVID-19.
--- NOTE | 2020-07-04 16:21 | CASEMGMT ---
Social Work Discussed code status with pt. Pt confirmed full code. Reviewed MOLST form, communication given to physician. Placed in chart. Marcia Ayoub, CHORE WORKER PHLEBOTOMY TECHNICIAN
[2020-07-04 17:06] LABS: Bedside Glucose 175 mg/dL (70-110)
[2020-07-04 21:30] LABS: Bedside Glucose 79 mg/dL (70-110)
--- NOTE | 2020-07-04 22:15 | NURSING ---
PICC removed from RODERICK without difficulty using sterile technique, length at 41cm, pressure applied to site x15min then pressure dressing applied. Pt informed to lie flat x30 minutes and let us know if she becomes short of breath or has chest pain. Pt voices understanding.
[2020-07-05] MEDS: traMADol 50 MG Tablet PO ×2 (05:56→18:10)
[2020-07-05] MEDS: hydroCHLOROthiazide 25 MG Tablet PO (05:57)
[2020-07-05] MEDS: Menthol/Lanolin/Calamine/Znox 113 GM Tube 1 APPLIC TOPICAL ×2 (05:57→20:37)
[2020-07-05] MEDS: Cyanocobalamin 500 MCG Tablet 1000 MCG PO (05:57)
[2020-07-05] MEDS: Lisinopril 40 MG Tablet PO (05:57)
[2020-07-05] MEDS: Polyethylene Glycol 3350 17 GM PACKET PO (05:58)
[2020-07-05] MEDS: 0.9% Saline Lock 10 ML Syringe IV (05:59)
[2020-07-05 06:00] VITALS: BP 146/49; PULSE 75; RESP 16; TEMP 36.3; O2SAT 94
[2020-07-05] MEDS: Pantoprazole Sodium 20 MG Tablet PO (06:04)
[2020-07-05 06:50] LABS: Bedside Glucose 131 mg/dL (70-110)
[2020-07-05] MEDS: Glimepiride 4 MG Tablet PO ×2 (08:47→18:12)
[2020-07-05] MEDS: Insulin Lispro 100 UNIT/ML INSULN.PEN 10 UNIT SC ×3 (08:48→18:14)
[2020-07-05] MEDS: Aspirin 81 MG TAB.CHEW PO ×2 (08:48→18:12)
[2020-07-05] MEDS: Calcium Carb/Vitamin D 1 TABLET Tablet PO ×2 (08:48→18:12)
[2020-07-05] MEDS: Trimethoprim 100 MG Tablet PO ×2 (11:14→20:38)
--- NOTE | 2020-07-05 11:38 | CASEMGMT ---
Social Work IDT met with patient and via conference call for care plan meeting. Discussed patient's progress in therapy. Pt is TTWB on LLE and no knee flexion x2 weeks, then allowed PWBS on LLE with ROM. Pt is Ulysses for bed mobility, tx and ambulating 12 ft with FWW. Pt is set up for grooming while seated, UE bathing is max A, set up for UE dressing, LE bathing Ulysses, maxA for LE dressing, CGA for toileting tasks. Pt is out of isolation 07/14, remains in IV ATB until 08/10 and pt anticipates to remain throughout duration of IVs. Explained Medicare benefit. The goal is for pt to return home with and PLOF. Will continue to follow. ADRIANA StevensW
[2020-07-05] MEDS: Vancomycin IV 1,000 MG/200 ML BAG 200 MG IV ×2 (11:49→23:37)
[2020-07-05 11:50] LABS: Bedside Glucose 144 mg/dL (70-110)
[2020-07-05 14:23] VITALS: BP 102/43; PULSE 62; RESP 18; TEMP 37.1; O2SAT 94
[2020-07-05 16:56] LABS: Bedside Glucose 133 mg/dL (70-110)
[2020-07-05] MEDS: Senna/Docusate Sodium 1 Tablet PO (18:13)
[2020-07-05 21:16] LABS: Bedside Glucose 114 mg/dL (70-110)
--- NOTE | 2020-07-06 00:57 | NURSING ---
removed SL in LT wrist. Pt tolerated well, tip intact, no signs of infection. Pt resting comfortably in bed, call light in reach.
[2020-07-06 04:00] VITALS: BP 96/62; PULSE 63; RESP 18; TEMP 36.6; O2SAT 92
[2020-07-06 06:35] LABS: Bedside Glucose 133 mg/dL (70-110)
[2020-07-06] MEDS: Polyethylene Glycol 3350 17 GM PACKET PO (06:56)
[2020-07-06] MEDS: hydroCHLOROthiazide 25 MG Tablet PO (06:56)
[2020-07-06] MEDS: Senna/Docusate Sodium 1 Tablet PO (06:56)
[2020-07-06] MEDS: Lisinopril 40 MG Tablet PO (06:56)
[2020-07-06] MEDS: Cyanocobalamin 500 MCG Tablet 1000 MCG PO (06:57)
[2020-07-06] MEDS: Menthol/Lanolin/Calamine/Znox 113 GM Tube 1 APPLIC TOPICAL ×2 (06:58→19:56)
[2020-07-06] MEDS: traMADol 50 MG Tablet PO ×2 (08:57→19:48)
[2020-07-06] MEDS: Calcium Carb/Vitamin D 1 TABLET Tablet PO ×2 (08:58→18:20)
[2020-07-06] MEDS: Aspirin 81 MG TAB.CHEW PO ×2 (08:58→18:21)
[2020-07-06] MEDS: Glimepiride 4 MG Tablet PO ×2 (08:58→18:20)
[2020-07-06] MEDS: Insulin Lispro 100 UNIT/ML INSULN.PEN 10 UNIT SC ×3 (09:00→18:19)
[2020-07-06 10:00] VITALS: PULSE 58; RESP 18; O2SAT 96
[2020-07-06] MEDS: 0.9% Saline Lock 10 ML Syringe IV ×2 (10:11→23:19)
[2020-07-06] MEDS: Vancomycin IV 1,000 MG/200 ML BAG 200 MG IV ×2 (11:03→23:23)
[2020-07-06] MEDS: Trimethoprim 100 MG Tablet PO ×2 (11:06→23:15)
[2020-07-06 11:20] LABS: Bedside Glucose 122 mg/dL (70-110)
[2020-07-06 14:02] VITALS: BP 124/52; PULSE 61; RESP 15; TEMP 36.7; O2SAT 124
[2020-07-06 16:36] LABS: Bedside Glucose 146 mg/dL (70-110)
[2020-07-06 21:31] LABS: Bedside Glucose 193 mg/dL (70-110)
[2020-07-07 05:10] VITALS: BP 116/36; PULSE 57; RESP 18; TEMP 36.5; O2SAT 97
[2020-07-07] MEDS: Polyethylene Glycol 3350 17 GM PACKET PO (05:14)
[2020-07-07] MEDS: Pantoprazole Sodium 20 MG Tablet PO (05:14)
[2020-07-07] MEDS: traMADol 50 MG Tablet PO ×3 (05:14→23:30)
[2020-07-07] MEDS: Lisinopril 40 MG Tablet PO (05:15)
[2020-07-07] MEDS: hydroCHLOROthiazide 25 MG Tablet PO (05:15)
[2020-07-07] MEDS: Cyanocobalamin 500 MCG Tablet 1000 MCG PO (05:15)
[2020-07-07] MEDS: Menthol/Lanolin/Calamine/Znox 113 GM Tube 1 APPLIC TOPICAL ×2 (05:17→23:26)
[2020-07-07 06:40] LABS: Bedside Glucose 154 mg/dL (70-110)
[2020-07-07] MEDS: Insulin Lispro 100 UNIT/ML INSULN.PEN 10 UNIT SC ×3 (08:11→17:55)
[2020-07-07] MEDS: Aspirin 81 MG TAB.CHEW PO ×2 (08:12→17:56)
[2020-07-07] MEDS: Glimepiride 4 MG Tablet PO ×2 (08:12→17:56)
[2020-07-07] MEDS: Calcium Carb/Vitamin D 1 TABLET Tablet PO ×2 (08:27→17:56)
[2020-07-07] MEDS: Trimethoprim 100 MG Tablet PO ×2 (10:43→23:25)
[2020-07-07 11:00] LABS: Bedside Glucose 186 mg/dL (70-110)
[2020-07-07] MEDS: Vancomycin IV 1,000 MG/200 ML BAG 200 MG IV ×2 (12:01→23:31)
[2020-07-07 16:00] VITALS: BP 116/52; PULSE 60; RESP 16; TEMP 36.7
[2020-07-07 16:50] LABS: Bedside Glucose 159 mg/dL (70-110)
[2020-07-07] MEDS: Senna/Docusate Sodium 1 Tablet PO (17:57)
[2020-07-07 21:31] LABS: Bedside Glucose 176 mg/dL (70-110)
[2020-07-07] MEDS: 0.9% Saline Lock 10 ML Syringe IV (23:31)
[2020-07-08 00:55] VITALS: BP 144/42; PULSE 64; RESP 16; TEMP 36.6; O2SAT 96
[2020-07-08] MEDS: traMADol 50 MG Tablet PO ×2 (06:21→18:08)
[2020-07-08] MEDS: Cyanocobalamin 500 MCG Tablet 1000 MCG PO (06:22)
[2020-07-08] MEDS: Polyethylene Glycol 3350 17 GM PACKET PO (06:22)
[2020-07-08] MEDS: Lisinopril 40 MG Tablet PO (06:22)
[2020-07-08] MEDS: Pantoprazole Sodium 20 MG Tablet PO (06:22)
[2020-07-08] MEDS: hydroCHLOROthiazide 25 MG Tablet PO (06:22)
[2020-07-08] MEDS: Menthol/Lanolin/Calamine/Znox 113 GM Tube 1 APPLIC TOPICAL ×2 (06:23→22:30)
[2020-07-08 06:31] LABS: Bedside Glucose 125 mg/dL (70-110)
[2020-07-08] MEDS: Glimepiride 4 MG Tablet PO ×2 (08:12→17:47)
[2020-07-08] MEDS: Aspirin 81 MG TAB.CHEW PO ×2 (08:12→17:48)
[2020-07-08] MEDS: Calcium Carb/Vitamin D 1 TABLET Tablet PO ×2 (08:13→17:48)
[2020-07-08] MEDS: Insulin Lispro 100 UNIT/ML INSULN.PEN 10 UNIT SC ×2 (08:13→11:25)
[2020-07-08 09:18] LABS: Absolute Neutrophil Count 4.2 X10^3/uL (2.0-7.7); Basophil# 0.06 X10^3/uL; Basophil% 0.8 % (0-1); Eosinophil# 0.31 X10^3/uL; Eosinophils% 3.9 % (0-5); Hematocrit 32.5 % (37-47); Hemoglobin 9.8 g/dL (12.0-15.0); Lymphocyte % 31.8 % (19-41); Mean Corp Hgb Conc 30.2 g/dL (32-36); Mean Corpuscular Hgb 27.6 pg (27.0-32.0); Mean Corpuscular Volume 91.5 fL (81-99); Mean Platelet Vol. 9.7 fl (6.2-12.0); Monocyte# 0.64 X10^3/uL; Monocyte% 8.1 % (0-10); NRBC Flagged by Analyzer 0 % (0-5); Neutrophil # 4.22 X10^3/uL (2.7-7.7); Neutrophil % 53.7 % (47-70); Platelet Count 339 K/mm3 (150-450); RBC Distribution Width CV 15.2 % (11.6-14.6); RBC Distribution Width SD 50.8 fl (35.1-43.9); Red Blood Count 3.55 M/mm3 (4.2-5.4); White Blood Count 7.9 K/mm3 (4.4-11.0)
[2020-07-08 09:38] LABS: Anion Gap 6 (5-15); BUN 16 mg/dL (7-18); BUN/Creat Ratio 12.1 RATIO (10-20); Calcium,Total 9.2 mg/dL (8.5-10.1); Chloride 101 mmol/L (98-107); Creatinine, Serum 1.32 mg/dL (0.55-1.02); EST Glomerular Filtration Rate 42 mL/min (>60); Est Glom Filt Rate - Afr Amer 51 mL/min (>60); Glucose 236 mg/dL (74-106); Potassium 3.8 mmol/L (3.5-5.1); Sodium Level 135 mmol/L (136-145)
[2020-07-08] MEDS: 0.9% Saline Lock 10 ML Syringe IV ×2 (10:39→22:32)
[2020-07-08 10:47] LABS: Erythrocyte Sedimentation Rate 36 mm/hr (0-30)
[2020-07-08 11:15] LABS: Bedside Glucose 151 mg/dL (70-110)
[2020-07-08] MEDS: Trimethoprim 100 MG Tablet PO ×2 (11:26→22:29)
[2020-07-08] MEDS: Tuberculin,Purif.prot.deriv. 50 TU/ML Vial 5 ML ID (11:26)
[2020-07-08 12:21] LABS: Vancomycin, Trough Level 23.6 ug/mL (5.0-15.0)
--- NOTE | 2020-07-08 12:24 | NURSING ---
[BART, PHARMACIST NOTIFIED OF TROUGH 23.6, NEW ORDER TO HOLD THIS DOSE.
[2020-07-08 12:31] VITALS: PULSE 93; RESP 18; O2SAT 99
[2020-07-08 13:52] VITALS: BP 113/62; PULSE 62; RESP 14; TEMP 36.6; O2SAT 91
--- NOTE | 2020-07-08 14:54 | PCM.RX.CS ---
Consult Type of Consult: Follow-up Prior Doses of Antibiotics Received/Current Regimen: Medications Discontinued Medications Vancomycin HCl (Vancomycin) 1,000 mg in 200 mls @ 200 mls/hr IV Q12H RAEANN Stop: 08/10/20 00:01 Last Admin: 07/08/20 12:24 Dose: Not Given Documented by: Labs: Sodium 135 mmol/L (136-145) L 07/08/20 08:49 Potassium 3.8 mmol/L (3.5-5.1) 07/08/20 08:49 Chloride 101 mmol/L (98-107) 07/08/20 08:49 Carbon Dioxide 28.0 mmol/L (21.0-32.0) 07/08/20 08:49 Anion Gap 6 (5-15) 07/08/20 08:49 BUN 16 mg/dL (7-18) 07/08/20 08:49 Creatinine 1.32 mg/dL (0.55-1.02) H 07/08/20 08:49 Est GFR (MDRD) Af Amer 51 mL/min (>60) L 07/08/20 08:49 Est GFR (MDRD) Non-Af 42 mL/min (>60) L 07/08/20 08:49 BUN/Creatinine Ratio 12.1 RATIO (-20) 07/08/20 08:49 Glucose 236 mg/dL (74-106) H 07/08/20 08:49 Vancomycin Trough 23.6 ug/mL (5.0-15.0) H 07/08/20 11:15 Microbiology: Microbiology 07/03/20 11:04 Mucosa - Nose - Final Weight used for dosin kg Goal Trough: 15-20 mcg/mL Pharmacy Plan for Drug Dosing: Trough above goal, SCr increased. Recommend to hold dose, resume with 750mg IV q12h. Recheck trough and BMP for SCr prior to 4th dose. Pharmacy Service will continue to monitor and adjust dosing as required. Follow-Up Labs: Trough Vancomycin - 07/10 @ 0930
--- NOTE | 2020-07-08 15:38 | NURSING ---
Pt updated today. Did not need me to call him at this time.
[2020-07-08 16:40] LABS: Bedside Glucose 72 mg/dL (70-110)
[2020-07-08 21:45] LABS: Bedside Glucose 183 mg/dL (70-110)
[2020-07-09 04:00] VITALS: BP 124/84; PULSE 72; RESP 18; TEMP 36.6; O2SAT 91
[2020-07-09 06:20] LABS: Bedside Glucose 129 mg/dL (70-110)
[2020-07-09] MEDS: hydroCHLOROthiazide 25 MG Tablet PO (06:53)
[2020-07-09] MEDS: Cyanocobalamin 500 MCG Tablet 1000 MCG PO (06:53)
[2020-07-09] MEDS: Lisinopril 40 MG Tablet PO (06:54)
[2020-07-09] MEDS: Menthol/Lanolin/Calamine/Znox 113 GM Tube 1 APPLIC TOPICAL ×2 (06:55→22:11)
[2020-07-09] MEDS: Polyethylene Glycol 3350 17 GM PACKET PO (06:55)
[2020-07-09] MEDS: Insulin Lispro 100 UNIT/ML INSULN.PEN 7 UNIT SC ×3 (08:33→17:31)
[2020-07-09] MEDS: Glimepiride 4 MG Tablet PO ×2 (08:36→17:31)
[2020-07-09] MEDS: Calcium Carb/Vitamin D 1 TABLET Tablet PO ×2 (08:36→17:32)
[2020-07-09] MEDS: Aspirin 81 MG TAB.CHEW PO ×2 (08:36→17:31)
[2020-07-09 09:09] LABS: Anion Gap 4 (5-15); BUN 17 mg/dL (7-18); BUN/Creat Ratio 13.7 RATIO (10-20); Calcium,Total 9.4 mg/dL (8.5-10.1); Chloride 101 mmol/L (98-107); Creatinine, Serum 1.24 mg/dL (0.55-1.02); EST Glomerular Filtration Rate 45 mL/min (>60); Est Glom Filt Rate - Afr Amer 54 mL/min (>60); Estimated Creatinine Clearance 37.26 ml/min; Glucose 149 mg/dL (74-106); Potassium 4.5 mmol/L (3.5-5.1); Sodium Level 136 mmol/L (136-145)
[2020-07-09] MEDS: Trimethoprim 100 MG Tablet PO ×2 (10:56→22:14)
[2020-07-09] MEDS: 0.9% Saline Lock 10 ML Syringe IV ×2 (10:58→22:11)
[2020-07-09 11:26] LABS: Bedside Glucose 151 mg/dL (70-110)
[2020-07-09 13:29] VITALS: BP 157/51; PULSE 64; RESP 18; TEMP 36.4; O2SAT 93
[2020-07-09 16:35] LABS: Bedside Glucose 113 mg/dL (70-110)
[2020-07-09] MEDS: traMADol 50 MG Tablet PO (17:32)
--- NOTE | 2020-07-09 18:20 | NURSING ---
Pt c/o of pain when she starts to urinate will update Dr. Mccracken.
[2020-07-09 21:26] LABS: Bedside Glucose 143 mg/dL (70-110)
[2020-07-10 06:19] VITALS: BP 142/48; PULSE 54; RESP 16; TEMP 36.6; O2SAT 95
[2020-07-10] MEDS: Cyanocobalamin 500 MCG Tablet 1000 MCG PO (06:20)
[2020-07-10] MEDS: Polyethylene Glycol 3350 17 GM PACKET PO (06:20)
[2020-07-10] MEDS: Lisinopril 40 MG Tablet PO (06:20)
[2020-07-10] MEDS: hydroCHLOROthiazide 25 MG Tablet PO (06:20)
[2020-07-10] MEDS: Pantoprazole Sodium 20 MG Tablet PO (06:27)
[2020-07-10] MEDS: traMADol 50 MG Tablet PO (06:27)
[2020-07-10 06:35] LABS: Bedside Glucose 129 mg/dL (70-110)
[2020-07-10] MEDS: Insulin Lispro 100 UNIT/ML INSULN.PEN 7 UNIT SC ×3 (07:58→17:47)
[2020-07-10] MEDS: Glimepiride 4 MG Tablet PO ×2 (07:58→17:49)
[2020-07-10] MEDS: Calcium Carb/Vitamin D 1 TABLET Tablet PO ×2 (07:59→17:49)
[2020-07-10] MEDS: Aspirin 81 MG TAB.CHEW PO ×2 (07:59→17:49)
[2020-07-10 09:19] LABS: Bacteria 0 SEEN /hpf (None Seen); Mucous, Urine 0 SEEN /hpf (<or=2+); White Blood Cells 0 SEEN /hpf (0-5)
[2020-07-10 09:28] LABS: Color, Urine Yellow (Yellow); Glucose, Dipstick Normal (Normal); Ketone-Dipstick Negative (Negative); Leukocyte Esterase-Dipstick Negative /ul (Negative); Nitrite-Dipstick Negative (Negative); Occult Blood-Urine 25 /ul (Negative); Protein-Dipstick Negative (Negative); Urine Bilirubin Dipstick Negative (Negative); Urine Clarity Sl. Cloudy (Clear); Urine Urobilinogen Normal (Normal)
[2020-07-10 09:45] LABS: Red Blood Cells-Urine 0-5 SEEN /hpf (0-5); Squamous Epithelial Cells - UA 0-5 SEEN /hpf (5-10)
[2020-07-10 10:00] LABS: Anion Gap 9 (5-15); BUN 15 mg/dL (7-18); BUN/Creat Ratio 10.6 RATIO (10-20); Calcium,Total 9.6 mg/dL (8.5-10.1); Chloride 100 mmol/L (98-107); Creatinine, Serum 1.41 mg/dL (0.55-1.02); EST Glomerular Filtration Rate 39 mL/min (>60); Est Glom Filt Rate - Afr Amer 47 mL/min (>60); Estimated Creatinine Clearance 32.77 ml/min; Glucose 221 mg/dL (74-106); Potassium 4.1 mmol/L (3.5-5.1); Sodium Level 136 mmol/L (136-145)
[2020-07-10 10:03] LABS: Vancomycin, Trough Level 18.6 ug/mL (5.0-15.0)
[2020-07-10] MEDS: 0.9% Saline Lock 10 ML Syringe IV ×2 (10:44→21:46)
[2020-07-10 10:51] LABS: Bedside Glucose 165 mg/dL (70-110)
--- NOTE | 2020-07-10 11:09 | NURSING ---
called pharmacy to verify to hang Vancomycin D/T elevated Trough levels. Pharmacy said to hang the Vancomycin.
[2020-07-10] MEDS: Trimethoprim 100 MG Tablet PO ×2 (11:40→21:46)
--- NOTE | 2020-07-10 12:11 | NURSING ---
Pt C/O of burning while urinating. Updated Dr. Mccracken he ordered a urinalysis. Vaginal area was reddened and yeast like material present.
[2020-07-10 13:22] VITALS: BP 120/56; PULSE 61; RESP 14; TEMP 36.4; O2SAT 95
--- NOTE | 2020-07-10 14:17 | PCM.RX.CS ---
Consult Pharmacy has been consulted to manage selected antiobiotic: Vancomycin Type of Consult: Follow-up Labs: Sodium 136 mmol/L (136-145) 07/10/20 09:14 Potassium 4.1 mmol/L (3.5-5.1) 07/10/20 09:14 Chloride 100 mmol/L (98-107) 07/10/20 09:14 Carbon Dioxide 27.0 mmol/L (21.0-32.0) 07/10/20 09:14 Anion Gap 9 (5-15) 07/10/20 09:14 BUN 15 mg/dL (7-18) 07/10/20 09:14 Creatinine 1.41 mg/dL (0.55-1.02) H 07/10/20 09:14 Est GFR (MDRD) Af Amer 47 mL/min (>60) L 07/10/20 09:14 Est GFR (MDRD) Non-Af 39 mL/min (>60) L 07/10/20 09:14 BUN/Creatinine Ratio 10.6 RATIO (10-20) 07/10/20 09:14 Glucose 221 mg/dL (74-106) H 07/10/20 09:14 Vancomycin Trough 18.6 ug/mL (5.0-15.0) H 07/10/20 09:14 Microbiology: Microbiology 07/03/20 11:04 Mucosa - Nose - Final Goal Trough: 15-20 mcg/mL Pharmacy Plan for Drug Dosing: VANCOMYCIN LEVEL RECEIVED Current Vancomycin Dose: 750mg IV Q12hr Number of Doses Received: 4 (3 prior to trough draw) Vancomycin Level: 18.6 Hours Since Last Dose: 11hrs Renal Function: 1.41 Renal Function Trend: slight increase Vancomycin Plan/Comments:Patient trough within goal range of 15-20. Since SCr has increased by ~0.2 since last draw, will obtain a trough in 2 days, as opposed to 4 to assess vancomycin dosing at that time. Will continue current dose. Pending Level: 07/12/20 @0930 Pharmacy Service will continue to monitor and adjust dosing as required.
[2020-07-10 16:25] LABS: Bedside Glucose 135 mg/dL (70-110)
[2020-07-10] MEDS: FLUCONAZOLE 150 MG TABLET PO (21:40)
[2020-07-10] MEDS: Menthol/Lanolin/Calamine/Znox 113 GM Tube 1 APPLIC TOPICAL (21:45)
[2020-07-10 21:55] LABS: Bedside Glucose 153 mg/dL (70-110)
[2020-07-11 03:10] VITALS: BP 123/50; PULSE 56; RESP 18; TEMP 36.4; O2SAT 98
[2020-07-11] MEDS: Lisinopril 40 MG Tablet PO (06:40)
[2020-07-11] MEDS: Polyethylene Glycol 3350 17 GM PACKET PO (06:40)
[2020-07-11] MEDS: hydroCHLOROthiazide 25 MG Tablet PO (06:40)
[2020-07-11] MEDS: Cyanocobalamin 500 MCG Tablet 1000 MCG PO (06:40)
[2020-07-11] MEDS: Menthol/Lanolin/Calamine/Znox 113 GM Tube 1 APPLIC TOPICAL (06:41)
[2020-07-11 06:46] LABS: Bedside Glucose 116 mg/dL (70-110)
[2020-07-11] MEDS: Aspirin 81 MG TAB.CHEW PO ×2 (07:59→17:32)
[2020-07-11] MEDS: Calcium Carb/Vitamin D 1 TABLET Tablet PO ×2 (08:00→17:33)
[2020-07-11] MEDS: Insulin Lispro 100 UNIT/ML INSULN.PEN 7 UNIT SC ×2 (08:00→11:41)
[2020-07-11] MEDS: Glimepiride 4 MG Tablet PO ×2 (08:00→17:33)
[2020-07-11] MEDS: 0.9% Saline Lock 10 ML Syringe IV ×2 (10:32→23:44)
[2020-07-11] MEDS: Calcium Carbonate 500 MG Tablet PO (10:44)
[2020-07-11 14:01] VITALS: BP 132/54; PULSE 59; RESP 18; TEMP 36.2; O2SAT 99
[2020-07-11 17:36] LABS: Bedside Glucose 71 mg/dL (70-110)
--- NOTE | 2020-07-11 18:00 | NURSING ---
pt Blood sugar 71, held abigail edwards agreed.
[2020-07-11 21:21] LABS: Bedside Glucose 110 mg/dL (70-110)
[2020-07-12 01:31] VITALS: BP 137/71; PULSE 59; RESP 16; TEMP 37.2; O2SAT 93
[2020-07-12] MEDS: hydroCHLOROthiazide 25 MG Tablet PO (06:12)
[2020-07-12] MEDS: Lisinopril 40 MG Tablet PO (06:12)
[2020-07-12] MEDS: Cyanocobalamin 500 MCG Tablet 1000 MCG PO (06:13)
[2020-07-12] MEDS: Trimethoprim 100 MG Tablet PO (06:13)
[2020-07-12] MEDS: Menthol/Lanolin/Calamine/Znox 113 GM Tube 1 APPLIC TOPICAL ×2 (06:14→18:53)
[2020-07-12 06:41] LABS: Bedside Glucose 134 mg/dL (70-110)
[2020-07-12] MEDS: Acetaminophen 500 MG Tablet 1000 MG PO ×2 (07:57→21:51)
[2020-07-12] MEDS: Calcium Carb/Vitamin D 1 TABLET Tablet PO ×2 (07:58→18:50)
[2020-07-12] MEDS: Aspirin 81 MG TAB.CHEW PO ×2 (07:58→18:50)
[2020-07-12] MEDS: Glimepiride 4 MG Tablet PO ×2 (07:58→18:51)
[2020-07-12 10:00] VITALS: RESP 18
[2020-07-12 11:31] LABS: Bedside Glucose 189 mg/dL (70-110)
[2020-07-12] MEDS: Insulin Lispro 100 UNIT/ML INSULN.PEN 7 UNIT SC ×2 (12:38→18:55)
[2020-07-12 12:47] LABS: Vancomycin, Trough Level 18.5 ug/mL (5.0-15.0)
--- NOTE | 2020-07-12 13:40 | PCM.RX.CS ---
Consult Pharmacy has been consulted to manage selected antiobiotic: Vancomycin Type of Consult: Follow-up Prior Doses of Antibiotics Received/Current Regimen: Currently on 750mg iv q12h. Labs: Sodium 136 mmol/L (136-145) 07/10/20 09:14 Potassium 4.1 mmol/L (3.5-5.1) 07/10/20 09:14 Chloride 100 mmol/L (98-107) 07/10/20 09:14 Carbon Dioxide 27.0 mmol/L (21.0-32.0) 07/10/20 09:14 Anion Gap 9 (5-15) 07/10/20 09:14 BUN 15 mg/dL (7-18) 07/10/20 09:14 Creatinine 1.41 mg/dL (0.55-1.02) H 07/10/20 09:14 Est GFR (MDRD) Af Amer 47 mL/min (>60) L 07/10/20 09:14 Est GFR (MDRD) Non-Af 39 mL/min (>60) L 07/10/20 09:14 BUN/Creatinine Ratio 10.6 RATIO (-20) 07/10/20 09:14 Glucose 221 mg/dL (74-106) H 07/10/20 09:14 Vancomycin Trough 18.5 ug/mL (5.0-15.0) H 07/12/20 11:30 Microbiology: Microbiology 07/10/20 09:08 Urine Catheter - Catheter Urine Culture - Final Culture exhibits no growth. 07/03/20 11:04 Mucosa - Nose - Final Weight used for dosin kg Estimated Creatinine Clearance: ~33ml/min Goal Trough: 15-20 mcg/mL Pharmacy Plan for Drug Dosing: Today's trough level results were 18.5 (goal range 15-20 mcg/ml), level 12hrs post last dose. No new renal labs. Will continue same dose/freq. A new trough level ordered in 4 days on 07.15.20 per protocol. Pharmacy Service will continue to monitor and adjust dosing as required. Follow-Up Labs: Trough Vancomycin - 07.15.20 @0714
--- NOTE | 2020-07-12 13:50 | NURSING ---
Resident and spouse, Ezequiel, notified of staff members testing positive for COVID 19.
--- NOTE | 2020-07-12 13:59 | MDS.RN ---
Information for the mds was obtained from review of the clinical record, interview of resident, staff, and direct observation of resident's care.
[2020-07-12 14:08] VITALS: BP 117/57; PULSE 59; RESP 18; TEMP 37; O2SAT 95
[2020-07-12 16:46] LABS: Bedside Glucose 156 mg/dL (70-110)
[2020-07-12 21:16] LABS: Bedside Glucose 135 mg/dL (70-110)
[2020-07-13] MEDS: 0.9% Saline Lock 10 ML Syringe IV ×3 (00:05→11:32)
[2020-07-13 05:44] VITALS: BP 130/60; PULSE 50; RESP 15; TEMP 36.3; O2SAT 96
[2020-07-13] MEDS: Polyethylene Glycol 3350 17 GM PACKET PO (05:46)
[2020-07-13] MEDS: Cyanocobalamin 500 MCG Tablet 1000 MCG PO (05:47)
[2020-07-13] MEDS: hydroCHLOROthiazide 25 MG Tablet PO (05:48)
[2020-07-13] MEDS: Lisinopril 40 MG Tablet PO (05:48)
[2020-07-13] MEDS: Trimethoprim 100 MG Tablet PO (05:48)
[2020-07-13] MEDS: Menthol/Lanolin/Calamine/Znox 113 GM Tube 1 APPLIC TOPICAL ×2 (05:48→17:28)
[2020-07-13 06:26] LABS: Bedside Glucose 126 mg/dL (70-110)
[2020-07-13] MEDS: Insulin Lispro 100 UNIT/ML INSULN.PEN 7 UNIT SC ×3 (08:30→17:23)
[2020-07-13] MEDS: Glimepiride 4 MG Tablet PO ×2 (08:31→17:24)
[2020-07-13] MEDS: Aspirin 81 MG TAB.CHEW PO ×2 (08:31→17:24)
[2020-07-13] MEDS: Calcium Carb/Vitamin D 1 TABLET Tablet PO ×2 (08:31→17:24)
[2020-07-13 10:00] VITALS: PULSE 56; RESP 18; O2SAT 96
[2020-07-13 11:00] LABS: Bedside Glucose 144 mg/dL (70-110)
[2020-07-13 13:01] VITALS: BP 133/55; PULSE 50; RESP 16; TEMP 36; O2SAT 94
[2020-07-13 16:16] LABS: Bedside Glucose 140 mg/dL (70-110)
[2020-07-13 21:25] LABS: Bedside Glucose 146 mg/dL (70-110)
[2020-07-14] MEDS: 0.9% Saline Lock 10 ML Syringe IV ×3 (00:05→23:05)
[2020-07-14 05:35] VITALS: BP 143/103; PULSE 66; RESP 16; TEMP 36.8; O2SAT 98
[2020-07-14] MEDS: Cyanocobalamin 500 MCG Tablet 1000 MCG PO (05:38)
[2020-07-14] MEDS: Polyethylene Glycol 3350 17 GM PACKET PO (05:38)
[2020-07-14] MEDS: Trimethoprim 100 MG Tablet PO (05:39)
[2020-07-14] MEDS: Senna/Docusate Sodium 1 Tablet PO (05:39)
[2020-07-14] MEDS: hydroCHLOROthiazide 25 MG Tablet PO (05:39)
[2020-07-14] MEDS: Lisinopril 40 MG Tablet PO (05:39)
[2020-07-14] MEDS: Menthol/Lanolin/Calamine/Znox 113 GM Tube 1 APPLIC TOPICAL ×2 (05:40→17:28)
[2020-07-14 06:26] LABS: Bedside Glucose 149 mg/dL (70-110)
[2020-07-14] MEDS: Insulin Lispro 100 UNIT/ML INSULN.PEN 7 UNIT SC ×3 (07:59→17:31)
[2020-07-14] MEDS: Calcium Carb/Vitamin D 1 TABLET Tablet PO ×2 (08:01→17:30)
[2020-07-14] MEDS: Glimepiride 4 MG Tablet PO ×2 (08:01→17:30)
[2020-07-14] MEDS: Aspirin 81 MG TAB.CHEW PO ×2 (08:01→17:30)
[2020-07-14 11:01] LABS: Bedside Glucose 134 mg/dL (70-110)
[2020-07-14] MEDS: Acetaminophen 500 MG Tablet 1000 MG PO ×2 (11:36→23:08)
[2020-07-14 15:14] VITALS: BP 139/51; PULSE 58; RESP 16; TEMP 36.3; O2SAT 95
[2020-07-14 16:35] LABS: Bedside Glucose 107 mg/dL (70-110)
[2020-07-14 21:26] LABS: Bedside Glucose 171 mg/dL (70-110)
[2020-07-14] MEDS: Calcium Carbonate 500 MG Tablet PO (22:28)
--- NOTE | 2020-07-15 02:25 | NURSING ---
Pt resting in bed with eyes closed, appears to bed sleeping.
[2020-07-15 06:07] VITALS: BP 114/63; PULSE 67; RESP 16; TEMP 37.1; O2SAT 94
[2020-07-15] MEDS: Cyanocobalamin 500 MCG Tablet 1000 MCG PO (06:07)
[2020-07-15] MEDS: Polyethylene Glycol 3350 17 GM PACKET PO (06:07)
[2020-07-15] MEDS: Trimethoprim 100 MG Tablet PO (06:08)
[2020-07-15] MEDS: Pantoprazole Sodium 20 MG Tablet PO (06:08)
[2020-07-15] MEDS: Lisinopril 40 MG Tablet PO (06:08)
[2020-07-15] MEDS: hydroCHLOROthiazide 25 MG Tablet PO (06:08)
[2020-07-15] MEDS: Menthol/Lanolin/Calamine/Znox 113 GM Tube 1 APPLIC TOPICAL ×2 (06:12→18:20)
[2020-07-15 06:36] LABS: Bedside Glucose 106 mg/dL (70-110)
[2020-07-15 07:37] LABS: Erythrocyte Sedimentation Rate 43 mm/hr (0-30)
[2020-07-15 07:46] LABS: Anion Gap 5 (5-15); BUN 20 mg/dL (7-18); Calcium,Total 9.4 mg/dL (8.5-10.1); Chloride 106 mmol/L (98-107); EST Glomerular Filtration Rate 58 mL/min (>60); Est Glom Filt Rate - Afr Amer 70 mL/min (>60); Glucose 118 mg/dL (74-106); Potassium 4.3 mmol/L (3.5-5.1); Sodium Level 140 mmol/L (136-145)
[2020-07-15 07:51] LABS: Absolute Lymphocyte Count 2.61 X10^3/uL (0.83-4.51); Absolute Neutrophil Count 4.1 X10^3/uL (2.0-7.7); Basophil# 0.07 X10^3/uL; Basophil% 0.9 % (0-1); Eosinophil# 0.44 X10^3/uL; Eosinophils% 5.6 % (0-5); Hematocrit 33.2 % (37-47); Hemoglobin 10.1 g/dL (12.0-15.0); Lymphocyte # 2.61 X10^3/ul (4.0); Mean Corp Hgb Conc 30.4 g/dL (32-36); Mean Corpuscular Hgb 27.7 pg (27.0-32.0); Mean Corpuscular Volume 91.2 fL (81-99); Mean Platelet Vol. 9.7 fl (6.2-12.0); Monocyte% 8.8 % (0-10); NRBC Flagged by Analyzer 0 % (0-5); Neutrophil # 4.07 X10^3/uL (2.7-7.7); Neutrophil % 51.3 % (47-70); Platelet Count 354 K/mm3 (150-450); RBC Distribution Width CV 14.6 % (11.6-14.6); RBC Distribution Width SD 49.3 fl (35.1-43.9); Red Blood Count 3.64 M/mm3 (4.2-5.4); White Blood Count 7.9 K/mm3 (4.4-11.0)
[2020-07-15] MEDS: Aspirin 81 MG TAB.CHEW PO ×2 (08:50→18:20)
[2020-07-15] MEDS: Glimepiride 4 MG Tablet PO ×2 (08:51→18:19)
[2020-07-15] MEDS: Calcium Carb/Vitamin D 1 TABLET Tablet PO ×2 (08:51→18:19)
[2020-07-15] MEDS: Insulin Lispro 100 UNIT/ML INSULN.PEN 7 UNIT SC ×2 (08:52→11:41)
[2020-07-15 11:21] LABS: Bedside Glucose 138 mg/dL (70-110)
[2020-07-15 14:24] VITALS: BP 129/45; PULSE 63; RESP 14; TEMP 36.1; O2SAT 97
[2020-07-15 16:10] LABS: Bedside Glucose 96 mg/dL (70-110)
[2020-07-15 21:20] LABS: Bedside Glucose 137 mg/dL (70-110)
[2020-07-15 23:53] LABS: Vancomycin, Trough Level 17.1 ug/mL (5.0-15.0)
--- NOTE | 2020-07-16 00:05 | PCM.RX.CS ---
Consult Pharmacy has been consulted to manage selected antiobiotic: Vancomycin Type of Consult: Follow-up Labs: Sodium 140 mmol/L (136-145) 07/15/20 06:40 Potassium 4.3 mmol/L (3.5-5.1) 07/15/20 06:40 Chloride 106 mmol/L (98-107) 07/15/20 06:40 Carbon Dioxide 29.0 mmol/L (21.0-32.0) 07/15/20 06:40 Anion Gap 5 (5-15) 07/15/20 06:40 BUN 20 mg/dL (7-18) H 07/15/20 06:40 Creatinine 1.00 mg/dL (0.55-1.02) 07/15/20 06:40 Est GFR (MDRD) Af Amer 70 mL/min (>60) 07/15/20 06:40 Est GFR (MDRD) Non-Af 58 mL/min (>60) L 07/15/20 06:40 BUN/Creatinine Ratio 20.0 RATIO (10-20) 07/15/20 06:40 Glucose 118 mg/dL (74-106) H 07/15/20 06:40 Vancomycin Trough 17.1 ug/mL (5.0-15.0) H 07/15/20 23:22 Microbiology: Microbiology 07/10/20 09:08 Urine Catheter - Catheter Urine Culture - Final Culture exhibits no growth. 07/03/20 11:04 Mucosa - Nose - Final Goal Trough: 15-20 mcg/mL Pharmacy Plan for Drug Dosing: Pharmacy Service will continue to monitor and adjust dosing as required. TROUGH 17.1 NO CHANGES Follow-Up Labs: Trough Vancomycin Labs to be done on [date and time ordered]: 07/19 @ 5456
[2020-07-16 04:00] VITALS: BP 134/68; PULSE 62; RESP 16; TEMP 36.5; O2SAT 97
[2020-07-16 06:16] LABS: Bedside Glucose 72 mg/dL (70-110)
[2020-07-16] MEDS: Trimethoprim 100 MG Tablet PO (06:40)
[2020-07-16] MEDS: Cyanocobalamin 500 MCG Tablet 1000 MCG PO (06:40)
[2020-07-16] MEDS: hydroCHLOROthiazide 25 MG Tablet PO (06:40)
[2020-07-16] MEDS: Lisinopril 40 MG Tablet PO (06:40)
[2020-07-16] MEDS: Polyethylene Glycol 3350 17 GM PACKET PO (06:41)
[2020-07-16] MEDS: Senna/Docusate Sodium 1 Tablet PO ×2 (06:41→17:22)
[2020-07-16] MEDS: Menthol/Lanolin/Calamine/Znox 113 GM Tube 1 APPLIC TOPICAL ×2 (06:41→17:22)
[2020-07-16] MEDS: Calcium Carb/Vitamin D 1 TABLET Tablet PO ×2 (08:12→16:21)
[2020-07-16] MEDS: Aspirin 81 MG TAB.CHEW PO ×2 (08:12→16:21)
[2020-07-16] MEDS: Glimepiride 4 MG Tablet PO ×2 (08:14→16:20)
[2020-07-16] MEDS: 0.9% Saline Lock 10 ML Syringe IV (09:51)
[2020-07-16] MEDS: Acetaminophen 500 MG Tablet 1000 MG PO ×2 (09:53→21:11)
[2020-07-16 10:31] LABS: Bedside Glucose 197 mg/dL (70-110)
[2020-07-16] MEDS: Insulin Lispro 100 UNIT/ML INSULN.PEN 7 UNIT SC (11:12)
[2020-07-16 13:33] VITALS: BP 126/53; PULSE 65; RESP 17; TEMP 36.6; O2SAT 96
--- NOTE | 2020-07-16 15:41 | NURSING ---
Pt was concerned that her ESR was higher then previous lab draw. This nurse explained that ESR can fluctuate throughout treatment. Later in the day this nurse went to administer IV ATB and pt stated I didn't get good news today. When asked what was wrong pt stated my infection is getting worse. When asked where she received this news pt stated well the nurse from earlier said that my ESR is worse. This nurse again explained that ESR measures inflammation in the body and it can fluctuate throughout treatment and is normal. Pt wishes to speak with Dr. Bowden the next time he comes in.
[2020-07-16 16:46] LABS: Bedside Glucose 96 mg/dL (70-110)
[2020-07-16 21:16] LABS: Bedside Glucose 158 mg/dL (70-110)
[2020-07-17] MEDS: 0.9% Saline Lock 10 ML Syringe IV ×4 (00:03→23:21)
[2020-07-17 05:51] VITALS: BP 159/54; PULSE 69; RESP 16; TEMP 36.8; O2SAT 95
[2020-07-17] MEDS: Polyethylene Glycol 3350 17 GM PACKET PO (05:53)
[2020-07-17] MEDS: hydroCHLOROthiazide 25 MG Tablet PO (05:53)
[2020-07-17] MEDS: Trimethoprim 100 MG Tablet PO (05:53)
[2020-07-17] MEDS: Cyanocobalamin 500 MCG Tablet 1000 MCG PO (05:54)
[2020-07-17] MEDS: Senna/Docusate Sodium 1 Tablet PO (05:54)
[2020-07-17] MEDS: Lisinopril 40 MG Tablet PO (05:54)
[2020-07-17] MEDS: Pantoprazole Sodium 20 MG Tablet PO (05:58)
[2020-07-17] MEDS: Menthol/Lanolin/Calamine/Znox 113 GM Tube 1 APPLIC TOPICAL (05:59)
[2020-07-17 06:21] LABS: Bedside Glucose 116 mg/dL (70-110)
[2020-07-17] MEDS: Acetaminophen 500 MG Tablet 1000 MG PO ×2 (07:53→23:19)
[2020-07-17] MEDS: Insulin Lispro 100 UNIT/ML INSULN.PEN 7 UNIT SC ×3 (07:54→17:37)
[2020-07-17] MEDS: Calcium Carb/Vitamin D 1 TABLET Tablet PO ×2 (07:57→17:40)
[2020-07-17] MEDS: Aspirin 81 MG TAB.CHEW PO ×2 (07:57→17:39)
[2020-07-17] MEDS: Glimepiride 4 MG Tablet PO ×2 (07:57→17:40)
[2020-07-17 10:00] VITALS: PULSE 50; RESP 18; O2SAT 96
[2020-07-17 11:00] LABS: Bedside Glucose 115 mg/dL (70-110)
[2020-07-17 12:33] VITALS: BP 146/61; PULSE 59; RESP 20; TEMP 36; O2SAT 97
[2020-07-17 16:41] LABS: Bedside Glucose 153 mg/dL (70-110)
[2020-07-17] MEDS: Calcium Carbonate 500 MG Tablet PO (20:11)
[2020-07-17 21:15] LABS: Bedside Glucose 140 mg/dL (70-110)
[2020-07-18] MEDS: Polyethylene Glycol 3350 17 GM PACKET PO (05:49)
[2020-07-18] MEDS: Lisinopril 40 MG Tablet PO (05:51)
[2020-07-18] MEDS: Cyanocobalamin 500 MCG Tablet 1000 MCG PO (05:51)
[2020-07-18] MEDS: Trimethoprim 100 MG Tablet PO (05:52)
[2020-07-18] MEDS: hydroCHLOROthiazide 25 MG Tablet PO (05:52)
[2020-07-18] MEDS: Menthol/Lanolin/Calamine/Znox 113 GM Tube 1 APPLIC TOPICAL (05:54)
[2020-07-18 05:57] VITALS: BP 154/62; PULSE 68; RESP 16; TEMP 36.8; O2SAT 98
[2020-07-18 06:10] LABS: Bedside Glucose 119 mg/dL (70-110)
[2020-07-18] MEDS: Glimepiride 4 MG Tablet PO ×2 (07:38→17:16)
[2020-07-18] MEDS: Calcium Carb/Vitamin D 1 TABLET Tablet PO ×2 (07:38→17:17)
[2020-07-18] MEDS: Aspirin 81 MG TAB.CHEW PO ×2 (07:38→17:16)
[2020-07-18] MEDS: Insulin Lispro 100 UNIT/ML INSULN.PEN 7 UNIT SC ×3 (07:40→17:20)
[2020-07-18] MEDS: 0.9% Saline Lock 10 ML Syringe IV ×3 (09:12→12:56)
[2020-07-18 11:01] LABS: Bedside Glucose 110 mg/dL (70-110)
--- NOTE | 2020-07-18 11:35 | NURSING ---
PT UNHAPPY ABOUT NOT SEEING OR HEARING FROM DR. TRIPP ABOUT HER LABS AND HAD QUESTIONS. ASKED PT IF SHE WOULD LIKE TO TALK TO ,PT STATED NO I WANT DR. CHOWDHURY OFFICE NUMBER. GAVE PHONE NUMBER TO PT. RN AWARE.
[2020-07-18 12:40] VITALS: BP 129/60; PULSE 59; RESP 18; TEMP 36.5; O2SAT 96
--- NOTE | 2020-07-18 13:27 | NURSING ---
This nurse spoke with Dr. Kowalski's office regarding lab test results. Had lab send all results from hematology, chemistry and vancomycin peak and trough levels. Patient and patient's aware.
[2020-07-18 17:00] LABS: Bedside Glucose 147 mg/dL (70-110)
[2020-07-18] MEDS: Acetaminophen 500 MG Tablet 1000 MG PO (17:16)
--- NOTE | 2020-07-18 18:34 | NURSING ---
pt stated to this nurse that dr. buck was coming to see her tomarrow 07/19 at some time.
[2020-07-19 04:00] VITALS: BP 155/76; PULSE 66; RESP 18; TEMP 36.9; O2SAT 95
[2020-07-19] MEDS: Menthol/Lanolin/Calamine/Znox 113 GM Tube 1 APPLIC TOPICAL (05:55)
[2020-07-19] MEDS: hydroCHLOROthiazide 25 MG Tablet PO (05:56)
[2020-07-19] MEDS: Lisinopril 40 MG Tablet PO (05:56)
[2020-07-19] MEDS: Trimethoprim 100 MG Tablet PO (05:56)
[2020-07-19] MEDS: Cyanocobalamin 500 MCG Tablet 1000 MCG PO (05:56)
[2020-07-19] MEDS: Polyethylene Glycol 3350 17 GM PACKET PO (05:58)
[2020-07-19 06:36] LABS: Bedside Glucose 97 mg/dL (70-110)
[2020-07-19] MEDS: Calcium Carb/Vitamin D 1 TABLET Tablet PO ×2 (08:13→17:22)
[2020-07-19] MEDS: Glimepiride 4 MG Tablet PO ×2 (08:13→17:22)
[2020-07-19] MEDS: Aspirin 81 MG TAB.CHEW PO ×2 (08:13→17:22)
[2020-07-19 10:00] VITALS: PULSE 65; RESP 16; O2SAT 97
[2020-07-19] MEDS: Insulin Lispro 100 UNIT/ML INSULN.PEN 7 UNIT SC (11:36)
[2020-07-19 11:50] LABS: Bedside Glucose 114 mg/dL (70-110)
[2020-07-19 12:02] VITALS: BP 140/52; PULSE 55; RESP 16; TEMP 36.6; O2SAT 93
[2020-07-19 16:26] LABS: Bedside Glucose 84 mg/dL (70-110)
[2020-07-20 00:13] LABS: Vancomycin, Trough Level 17.6 ug/mL (5.0-15.0)
--- NOTE | 2020-07-20 01:31 | PCM.RX.CS ---
Consult Pharmacy has been consulted to manage selected antiobiotic: Vancomycin Type of Consult: Follow-up Suspected Infection: Skin/Soft tissue Prior Doses of Antibiotics Received/Current Regimen: Medications Vancomycin HCl 750 mg/ Sodium (Chloride) 265 mls @ 250 mls/hr IV Q12H RAEANN Stop: 08/09/20 01:00 Last Admin: 07/20/20 00:31 Dose: 250 mls/hr Labs: Sodium 140 mmol/L (136-145) 07/15/20 06:40 Potassium 4.3 mmol/L (3.5-5.1) 07/15/20 06:40 Chloride 106 mmol/L (98-107) 07/15/20 06:40 Carbon Dioxide 29.0 mmol/L (21.0-32.0) 07/15/20 06:40 Anion Gap 5 (5-15) 07/15/20 06:40 BUN 20 mg/dL (7-18) H 07/15/20 06:40 Creatinine 1.00 mg/dL (0.55-1.02) 07/15/20 06:40 Est GFR (MDRD) Af Amer 70 mL/min (>60) 07/15/20 06:40 Est GFR (MDRD) Non-Af 58 mL/min (>60) L 07/15/20 06:40 BUN/Creatinine Ratio 20.0 RATIO (10-20) 07/15/20 06:40 Glucose 118 mg/dL (74-106) H 07/15/20 06:40 Vancomycin Trough 17.6 ug/mL (5.0-15.0) H 07/19/20 23:45 Microbiology: Microbiology 07/17/20 12:00 Mucosa - Nose Respiratory Syncytial Virus Ag Scrn - Final 07/10/20 09:08 Urine Catheter - Catheter Urine Culture - Final Culture exhibits no growth. 07/03/20 11:04 Mucosa - Nose - Final Weight used for dosin.8 kg Estimated Creatinine Clearance: 46 Goal Trough: 15-20 mcg/mL Pharmacy Plan for Drug Dosing: Trough level of 17.6 was within target range of 15-20. Will continue current dosing and re-draw trough in four days. Pharmacy Service will continue to monitor and adjust dosing as required. Follow-Up Labs: Trough Vancomycin Labs to be done on [date and time ordered]: 07/24/20 @1132
[2020-07-20] MEDS: Acetaminophen 500 MG Tablet 1000 MG PO ×3 (01:54→21:11)
[2020-07-20 04:00] VITALS: BP 104/51; PULSE 55; RESP 18; TEMP 36.5; O2SAT 95
[2020-07-20] MEDS: Polyethylene Glycol 3350 17 GM PACKET PO (05:23)
[2020-07-20] MEDS: hydroCHLOROthiazide 25 MG Tablet PO (05:24)
[2020-07-20] MEDS: Cyanocobalamin 500 MCG Tablet 1000 MCG PO (05:24)
[2020-07-20] MEDS: Trimethoprim 100 MG Tablet PO (05:25)
[2020-07-20] MEDS: Lisinopril 40 MG Tablet PO (05:25)
[2020-07-20] MEDS: Menthol/Lanolin/Calamine/Znox 113 GM Tube 1 APPLIC TOPICAL (05:28)
[2020-07-20 06:50] LABS: Bedside Glucose 100 mg/dL (70-110)
[2020-07-20] MEDS: Aspirin 81 MG TAB.CHEW PO ×2 (08:01→16:29)
[2020-07-20] MEDS: Calcium Carb/Vitamin D 1 TABLET Tablet PO ×2 (08:02→16:29)
[2020-07-20] MEDS: Glimepiride 4 MG Tablet PO ×2 (08:02→16:29)
--- NOTE | 2020-07-20 10:10 | NURSING ---
Addendum entered by Adeola Hicks 07/20/20 15:14: Dr. Bowden talked with pt today, pt said she is doing well and her questions were answered Original Note: Pt requesting to see Amarilys Bowden, this nurse called office and talked with Pastora and was told Dr. Bowden would be at [facility] today and would let him to know to stop by and see pt.
[2020-07-20] MEDS: 0.9% Saline Lock 10 ML Syringe IV (10:39)
[2020-07-20 10:55] LABS: Bedside Glucose 165 mg/dL (70-110)
[2020-07-20] MEDS: Insulin Lispro 100 UNIT/ML INSULN.PEN 7 UNIT SC (11:39)
--- NOTE | 2020-07-20 12:12 | PCM.PN.ID ---
Patient Problems: Active and Suspected Problems (Last Reviewed 08/24/19 @ 12:[address] Jeremy Harrison MD) Debility (Acute) Infection of prosthetic right knee joint (Acute) Subjective: Feeling better, knee healing well, no fever, no n/v/d. - Physical Exam Vitals/I&O's: Vital Signs Temp Pulse Resp BP Pulse Ox 97.7 F L 55 L 18 104/51 L 95 07/20/20 04:00 07/20/20 04:00 07/20/20 04:00 07/20/20 04:00 07/20/20 04:00 Oxygen Delivery Method Room Air Weight: 81.817 kg Body Mass Index (BMI) 30.7 Intake and Output for Last 24 Hours 07/18/20 07/19/20 07/20/20 23:59 23:59 23:59 Intake Total 1180 / 1180 1218.5 / 1218.5 555 / 555 Balance 1180 / 1180 1218.5 / 1218.5 555 / 555 General: Alert, Cooperative, No apparent distress Lungs: Clear to auscultation, Normal air movement Cardiovascular: Regular rate, Regular Rhythm Abdomen: Soft, Non Tender, Non-Distended Extremities: Edema Skin: Incision - R knee healing well, no drainage Microbiology Past 72 Hours 07/17/20 12:00 Mucosa - Nose Respiratory Syncytial Virus Ag Scrn - Final Laboratory Results 07/19/20 16:16: POC Glucose 84 07/19/20 23:45: Vancomycin Trough 17.6 H 07/20/20 06:14: POC Glucose 100 07/20/20 10:39: POC Glucose 165 H Current Medications Acetaminophen (Acetaminophen 500 Mg Tablet) 1,000 mg PO Q6H PRN PRN Reason: Pain Score 1-3 Last Admin: 07/20/20 01:54 Dose: 1,000 mg Documented by: Aspirin (Aspirin 81 Mg Tab.Chew) 81 mg PO BIDCM RAEANN Stop: 07/26/20 17:00 Last Admin: 07/20/20 08:01 Dose: 81 mg Documented by: Bisacodyl (Bisacodyl 10 Mg Suppository) 10 mg RECTAL DAILY PRN PRN Reason: Constipation Calamine/Phenol (Menthol/Lanolin/Calamine/Znox 113 Gm Tube) 1 applic TOPICAL DAILY RAEANN; Protocol Last Admin: 07/20/20 05:28 Dose: 1 applicatio Documented by: Calcium Carbonate (Calcium Carbonate 500 Mg Tablet) 500 mg PO Q4H PRN PRN PRN Reason: HEARTBURN Last Admin: 07/17/20 20:11 Dose: 500 mg Documented by: Calcium/Vitamin D (Calcium Carb/Vitamin D 1 Tablet Tablet) 1 tablet PO BIDCM [facility] Last Admin: 07/20/20 08:02 Dose: 1 tablet Documented by: Cholecalciferol (Cholecalciferol (Vit D3) 1,000 Unit (25mcg)) 2,000 unit PO DAILY [facility] Last Admin: 07/20/20 05:24 Dose: 2,000 unit Documented by: Cyanocobalamin (Cyanocobalamin 500 Mcg Tablet) 1,000 mcg PO DAILY [facility] Last Admin: 07/20/20 05:24 Dose: 1,000 mcg Documented by: Glimepiride (Glimepiride 4 Mg Tablet) 4 mg PO BIDCM [facility] Last Admin: 07/20/20 08:02 Dose: 4 mg Documented by: Heparin Sodium (Beef Lung) (Heparin Pf Lock 10 Units/Ml 50 Units/5 Ml Syringe) 50 units IV UD PRN PRN Reason: PICC Line Heparin Flush Hydrochlorothiazide (Hydrochlorothiazide 25 Mg Tablet) 25 mg PO DAILY [facility] Last Admin: 07/20/20 05:24 Dose: 25 mg Documented by: Ceftriaxone Sodium 2 gm/ (Sodium Chloride) 50 mls @ 100 mls/hr IV Q24 [facility] Stop: 08/09/20 10:01 Last Infusion: 07/20/20 11:40 Dose: Infused Documented by: Sodium Chloride () 250 mls @ 15 mls/hr IV .[id number] PRN PRN Reason: Saline Flush Last Admin: 07/20/20 10:39 Dose: 15 mls/hr Documented by: Sodium Chloride () 250 mls @ 15 mls/hr IV .[id number] PRN PRN Reason: Additional IVPB Infusion Vancomycin HCl 750 mg/ Sodium (Chloride) 265 mls @ 250 mls/hr IV Q12H [facility] Stop: 08/09/20 01:00 Last Admin: 07/20/20 11:36 Dose: 250 mls/hr Documented by: Insulin Human Lispro (Insulin Lispro 100 Unit/Ml Insuln.Pen) 7 unit SC TIDAC [facility] Last Admin: 07/20/20 11:39 Dose: 7 u Documented by: Lactobacillus Acidophilus (Lactobacillus Acidophilus) 1 tablet PO BID [facility] Last Admin: 07/20/20 05:25 Dose: 1 tablet Documented by: Lisinopril (Lisinopril 40 Mg Tablet) 40 mg PO DAILY [facility] Last Admin: 07/20/20 05:25 Dose: 40 mg Documented by: Magnesium Hydroxide (Magnesium Hydroxide 30 Ml Udc) 30 ml PO DAILY PRN PRN Reason: Constipation Melatonin (Melatonin 10 Mg Tablet) 10 mg PO QHS PRN PRN PRN Reason: INSOMNIA Multi-Ingredient Cream (Mineral Oil/Petrolatum,White Jar) 1 applic TOPICAL BID [facility]; Protocol Last Admin: 07/20/20 05:27 Dose: 1 applicatio Documented by: Oxycodone HCl (Oxycodone 5 Mg Tablet) 5 mg PO Q4H PRN PRN PRN Reason: Pain Score 6-10 Last Admin: 07/03/20 06:01 Dose: 5 mg Documented by: Pantoprazole Sodium (Pantoprazole Sodium 20 Mg Tablet) 20 mg PO DAILY PRN PRN Reason: HEARTBURN Last Admin: 07/17/20 05:58 Dose: 20 mg Documented by: Polyethylene Glycol (Polyethylene Glycol 3350 17 Gm Packet) 17 gm PO DAILY [facility] Last Admin: 07/20/20 05:23 Dose: 17 gm Documented by: Senna/Docusate Sodium (Senna/Docusate Sodium 1 Tablet) 1 tablet PO BID [facility] Last Admin: 07/20/20 05:27 Dose: Not Given Documented by: Sodium Chloride (0.9% Saline Lock 10 Ml Syringe) 10 - 40 ml IV UD PRN PRN Reason: Open End PICC Flush Last Admin: 07/20/20 10:39 Dose: 20 ml Documented by: Sodium Chloride (0.9 % Nacl (Sterile) Posiflush 10 Ml) 10 - 40 ml IV UD PRN PRN Reason: Port access or dressing change Sodium Chloride (0.9% Saline Lock 10 Ml Syringe) 10 - 40 ml IV UD PRN PRN Reason: SALINE FLUSH Tramadol HCl (Tramadol 50 Mg Tablet) 50 mg PO Q6H PRN PRN PRN Reason: Pain Score 4-5 Last Admin: 07/10/20 06:27 Dose: 50 mg Documented by: Trimethoprim (Trimethoprim 100 Mg Tablet) 100 mg PO DAILY RAEANN Last Admin: 07/20/20 05:25 Dose: 100 mg Documented by: Medical Necessity - Tobacco Use Smoking Status: Never smoker Tobacco Use: Non-smoker Route of nutrition/ use of supplements: [] Nutritional Intake: [] IV Site: [] Morrell Catheter: [] - Assessment/Plan Antibiotics: [] Assessment/Plan: [] Active and Suspected Problems (Last Reviewed 08/24/19 @ 12:[address] 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 Casillas. Cont vanc/ceftriaxone. Plan will be for 6 weeks iv abx at discharge, stop date 08/09/20. Weekly bmp, cbc, vanc trough, and esr. Knee much improved. recurrent uti - recent course of macrobid. On trimethoprim chronically. Will follow
[2020-07-20 13:51] VITALS: BP 138/56; PULSE 62; RESP 16; TEMP 36.2; O2SAT 96
[2020-07-20 16:11] LABS: Bedside Glucose 100 mg/dL (70-110)
[2020-07-20 20:51] VITALS: PULSE 64; RESP 16; O2SAT 97
[2020-07-21] MEDS: 0.9% Saline Lock 10 ML Syringe IV ×4 (00:14→12:18)
[2020-07-21] MEDS: Polyethylene Glycol 3350 17 GM PACKET PO (06:25)
[2020-07-21 06:26] LABS: Bedside Glucose 98 mg/dL (70-110)
[2020-07-21] MEDS: Cyanocobalamin 500 MCG Tablet 1000 MCG PO (06:26)
[2020-07-21] MEDS: hydroCHLOROthiazide 25 MG Tablet PO (06:26)
[2020-07-21] MEDS: Trimethoprim 100 MG Tablet PO (06:26)
[2020-07-21] MEDS: Lisinopril 40 MG Tablet PO (06:26)
[2020-07-21] MEDS: Menthol/Lanolin/Calamine/Znox 113 GM Tube 1 APPLIC TOPICAL (06:27)
[2020-07-21 06:32] VITALS: BP 134/62; PULSE 85; RESP 17; TEMP 36.8; O2SAT 97
[2020-07-21] MEDS: Acetaminophen 500 MG Tablet 1000 MG PO (07:41)
[2020-07-21] MEDS: Calcium Carb/Vitamin D 1 TABLET Tablet PO ×2 (07:42→17:27)
[2020-07-21] MEDS: Aspirin 81 MG TAB.CHEW PO ×2 (07:42→17:27)
[2020-07-21] MEDS: Insulin Lispro 100 UNIT/ML INSULN.PEN 7 UNIT SC ×2 (07:43→12:09)
[2020-07-21] MEDS: Glimepiride 4 MG Tablet PO ×2 (07:43→17:27)
[2020-07-21 10:00] VITALS: PULSE 61; RESP 18; O2SAT 96
[2020-07-21 10:51] LABS: Bedside Glucose 145 mg/dL (70-110)
[2020-07-21 13:50] VITALS: BP 123/50; PULSE 51; RESP 16; TEMP 36.8; O2SAT 94
--- NOTE | 2020-07-21 15:44 | NURSING ---
Resident and spouse, Ezequiel, notified of staff testing positive for COVID.
[2020-07-21 16:46] LABS: Bedside Glucose 65 mg/dL (70-110)
[2020-07-21 17:06] LABS: Bedside Glucose 65 mg/dL (70-110)
[2020-07-21 17:25] LABS: Bedside Glucose 82 mg/dL (70-110)
[2020-07-21 22:15] LABS: Bedside Glucose 114 mg/dL (70-110)
[2020-07-21] MEDS: Calcium Carbonate 500 MG Tablet PO (22:52)
[2020-07-22] MEDS: 0.9% Saline Lock 10 ML Syringe IV ×3 (00:14→12:08)
[2020-07-22 05:00] VITALS: BP 137/65; PULSE 67; RESP 16; TEMP 36.6; O2SAT 97
[2020-07-22] MEDS: hydroCHLOROthiazide 25 MG Tablet PO (06:15)
[2020-07-22] MEDS: Lisinopril 40 MG Tablet PO (06:16)
[2020-07-22] MEDS: Cyanocobalamin 500 MCG Tablet 1000 MCG PO (06:16)
[2020-07-22] MEDS: Trimethoprim 100 MG Tablet PO (06:17)
[2020-07-22] MEDS: Menthol/Lanolin/Calamine/Znox 113 GM Tube 1 APPLIC TOPICAL (06:19)
[2020-07-22 06:46] LABS: Bedside Glucose 74 mg/dL (70-110)
[2020-07-22 07:58] LABS: Anion Gap 4 (5-15); BUN 12 mg/dL (7-18); BUN/Creat Ratio 12.2 RATIO (10-20); Calcium,Total 9.3 mg/dL (8.5-10.1); Chloride 104 mmol/L (98-107); Creatinine, Serum 0.98 mg/dL (0.55-1.02); EST Glomerular Filtration Rate 59 mL/min (>60); Est Glom Filt Rate - Afr Amer 71 mL/min (>60); Estimated Creatinine Clearance 47.15 ml/min; Glucose 65 mg/dL (74-106); Potassium 4.1 mmol/L (3.5-5.1); Sodium Level 138 mmol/L (136-145)
[2020-07-22 08:05] LABS: Erythrocyte Sedimentation Rate 26 mm/hr (0-30)
[2020-07-22 08:06] LABS: Absolute Lymphocyte Count 2.67 X10^3/uL (0.83-4.51); Absolute Neutrophil Count 2.9 X10^3/uL (2.0-7.7); Basophil# 0.05 X10^3/uL; Basophil% 0.8 % (0-1); Eosinophil# 0.41 X10^3/uL; Eosinophils% 6.2 % (0-5); Hematocrit 33.1 % (37-47); Hemoglobin 10.3 g/dL (12.0-15.0); Lymphocyte # 2.67 X10^3/ul (4.0); Lymphocyte % 40.3 % (19-41); Mean Corp Hgb Conc 31.1 g/dL (32-36); Mean Corpuscular Hgb 28.4 pg (27.0-32.0); Mean Corpuscular Volume 91.2 fL (81-99); Monocyte# 0.58 X10^3/uL; Monocyte% 8.8 % (0-10); NRBC Flagged by Analyzer 0 % (0-5); Neutrophil % 43.7 % (47-70); Platelet Count 252 K/mm3 (150-450); RBC Distribution Width CV 14.6 % (11.6-14.6); RBC Distribution Width SD 48.8 fl (35.1-43.9); Red Blood Count 3.63 M/mm3 (4.2-5.4); White Blood Count 6.6 K/mm3 (4.4-11.0)
[2020-07-22] MEDS: Glimepiride 1 MG Tablet PO ×2 (08:46→16:57)
[2020-07-22] MEDS: Aspirin 81 MG TAB.CHEW PO ×2 (08:46→16:57)
[2020-07-22] MEDS: Calcium Carb/Vitamin D 1 TABLET Tablet PO ×2 (08:46→16:57)
[2020-07-22] MEDS: Acetaminophen 500 MG Tablet 1000 MG PO (10:44)
[2020-07-22 11:16] LABS: Bedside Glucose 134 mg/dL (70-110)
[2020-07-22 12:13] VITALS: BP 125/56; PULSE 53; RESP 18; TEMP 36.2; O2SAT 96
[2020-07-22 16:25] LABS: Bedside Glucose 132 mg/dL (70-110)
[2020-07-22 21:05] VITALS: PULSE 60; O2SAT 99
[2020-07-22] MEDS: Calcium Carbonate 500 MG Tablet PO (21:27)
[2020-07-23 04:00] VITALS: BP 154/62; PULSE 60; RESP 18; TEMP 37.1; O2SAT 94
[2020-07-23] MEDS: Trimethoprim 100 MG Tablet PO (06:23)
[2020-07-23] MEDS: Cyanocobalamin 500 MCG Tablet 1000 MCG PO (06:23)
[2020-07-23] MEDS: Polyethylene Glycol 3350 17 GM PACKET PO (06:23)
[2020-07-23] MEDS: hydroCHLOROthiazide 25 MG Tablet PO (06:23)
[2020-07-23] MEDS: Lisinopril 40 MG Tablet PO (06:23)
[2020-07-23 06:26] LABS: Bedside Glucose 111 mg/dL (70-110)
[2020-07-23] MEDS: Menthol/Lanolin/Calamine/Znox 113 GM Tube 1 APPLIC TOPICAL (06:29)
[2020-07-23] MEDS: Calcium Carb/Vitamin D 1 TABLET Tablet PO ×2 (08:20→16:33)
[2020-07-23] MEDS: Glimepiride 1 MG Tablet PO ×2 (08:20→16:33)
[2020-07-23] MEDS: Aspirin 81 MG TAB.CHEW PO ×2 (08:20→16:33)
[2020-07-23 10:00] VITALS: PULSE 85; RESP 16; O2SAT 96
[2020-07-23] MEDS: 0.9% Saline Lock 10 ML Syringe IV ×2 (10:27→12:14)
[2020-07-23 11:20] LABS: Bedside Glucose 132 mg/dL (70-110)
[2020-07-23 13:25] VITALS: BP 141/58; PULSE 58; RESP 18; TEMP 36.5; O2SAT 96
[2020-07-23 16:25] LABS: Bedside Glucose 123 mg/dL (70-110)
[2020-07-24 04:00] VITALS: BP 152/59; PULSE 65; RESP 16; TEMP 36.8; O2SAT 95
[2020-07-24] MEDS: Polyethylene Glycol 3350 17 GM PACKET PO (06:22)
[2020-07-24] MEDS: Lisinopril 40 MG Tablet PO (06:22)
[2020-07-24] MEDS: Cyanocobalamin 500 MCG Tablet 1000 MCG PO (06:23)
[2020-07-24] MEDS: Trimethoprim 100 MG Tablet PO (06:23)
[2020-07-24] MEDS: hydroCHLOROthiazide 25 MG Tablet PO (06:23)
[2020-07-24] MEDS: Menthol/Lanolin/Calamine/Znox 113 GM Tube 1 APPLIC TOPICAL (06:28)
[2020-07-24 06:56] LABS: Bedside Glucose 106 mg/dL (70-110)
[2020-07-24] MEDS: Glimepiride 1 MG Tablet PO ×2 (09:02→16:29)
[2020-07-24] MEDS: Aspirin 81 MG TAB.CHEW PO ×2 (09:03→16:29)
[2020-07-24] MEDS: Calcium Carb/Vitamin D 1 TABLET Tablet PO ×2 (09:03→16:29)
[2020-07-24] MEDS: Acetaminophen 500 MG Tablet 1000 MG PO (09:15)
[2020-07-24] MEDS: 0.9% Saline Lock 10 ML Syringe IV (10:23)
[2020-07-24 10:51] LABS: Bedside Glucose 169 mg/dL (70-110)
[2020-07-24 12:20] LABS: Vancomycin, Trough Level 16.9 ug/mL (5.0-15.0)
[2020-07-24 13:00] VITALS: BP 110/51; PULSE 52; RESP 16; TEMP 37.1; O2SAT 95
--- NOTE | 2020-07-24 13:31 | PCM.RX.CS ---
Consult Pharmacy has been consulted to manage selected antiobiotic: Vancomycin Type of Consult: Follow-up Suspected Infection: Skin/Soft tissue Prior Doses of Antibiotics Received/Current Regimen: Currently on 750mg iv q12h. Labs: Sodium 138 mmol/L (136-145) 07/22/20 06:20 Potassium 4.1 mmol/L (3.5-5.1) 07/22/20 06:20 Chloride 104 mmol/L (98-107) 07/22/20 06:20 Carbon Dioxide 30.0 mmol/L (21.0-32.0) 07/22/20 06:20 Anion Gap 4 (5-15) L 07/22/20 06:20 BUN 12 mg/dL (7-18) 07/22/20 06:20 Creatinine 0.98 mg/dL (0.55-1.02) 07/22/20 06:20 Est GFR (MDRD) Af Amer 71 mL/min (>60) 07/22/20 06:20 Est GFR (MDRD) Non-Af 59 mL/min (>60) L 07/22/20 06:20 BUN/Creatinine Ratio 12.2 RATIO (-20) 07/22/20 06:20 Glucose 65 mg/dL (74-106) L 07/22/20 06:20 Vancomycin Trough 16.9 ug/mL (5.0-15.0) H 07/24/20 11:32 Microbiology: Microbiology 07/17/20 12:00 Mucosa - Nose Respiratory Syncytial Virus Ag Scrn - Final 07/10/20 09:08 Urine Catheter - Catheter Urine Culture - Final Culture exhibits no growth. 07/03/20 11:04 Mucosa - Nose - Final Weight used for dosin.8 kg Estimated Creatinine Clearance: 47 ml/min Goal Trough: 15-20 mcg/mL Pharmacy Plan for Drug Dosing: Trough level today 16.9 (goal range 15-20 mcg/ml). No new renal labs. Will continue same dose and freq. Another trough ordered for 07.29.20. Pharmacy Service will continue to monitor and adjust dosing as required. Follow-Up Labs: Trough Vancomycin - 07.29.20 @1130 before 1200 dose
[2020-07-24 16:41] LABS: Bedside Glucose 136 mg/dL (70-110)
--- NOTE | 2020-07-24 20:24 | PCM.TCUNOT ---
Subjective: Resident seen for regulatory visit. She is sitting in chair, finishing her dinner. She has no new problems, concerns, issues, complaints. Vitals/I&O's: Vital Signs Temp Pulse Resp BP Pulse Ox 98.8 F 52 L 16 110/51 L 95 07/24/20 13:00 07/24/20 13:00 07/24/20 13:00 07/24/20 13:00 07/24/20 13:00 Oxygen Delivery Method Room Air Weight: 81.817 kg Body Mass Index (BMI) 30.7 Intake and Output for Last 24 Hours 07/22/20 07/23/20 07/24/20 23:59 23:59 23:59 Intake Total 1300 / 1300 1180.25 / 1180.25 1490 / 1490 Balance 1300 / 1300 1180.25 / 1180.25 1490 / 1490 Laboratory Results 07/24/20 06:48: POC Glucose 106 07/24/20 10:33: POC Glucose 169 H 07/24/20 11:32: Vancomycin Trough 16.9 H 07/24/20 16:32: POC Glucose 136 H Past Medical History Past Medical History (Chronic Problems): Chronic Problems (Last Reviewed 08/24/19 @ 12:[address] Jeremy Harrison MD) Osteoarthritis of right knee (Chronic) Hypertension (Chronic) Hearing loss (Chronic) Osteoporosis (Chronic) Recurrent UTI (Chronic) Glaucoma (Chronic) Atrophic vaginitis (Chronic) GERD (gastroesophageal reflux disease) (Chronic) Diabetes (Chronic) Chronic UTI (urinary tract infection) (Chronic) Essential (primary) hypertension (Chronic) Diabetes type 2, uncontrolled (Chronic) Medical History: Medical History (Last Reviewed 08/24/19 @ 12:[address] Jeremy Harrison MD) Chronic UTI (urinary tract infection) (Chronic) N39.0 Essential (primary) hypertension (Chronic) I10 Diabetes type 2, uncontrolled (Chronic) E11.65 Glaucoma H40.9 Allergies ciprofloxacin Allergy (Severe, Verified 06/28/20 10:22) impairment of motor skills epinephrine [From Xylocaine with Epinephrine] Allergy (Unknown, Verified 06/28/20 10:22) unknown lidocaine [From Xylocaine with Epinephrine] Allergy (Unknown, Verified 06/28/20 10:22) unknown Sulfa (Sulfonamide Antibiotics) Allergy (Unknown, Verified 06/28/20 10:22) unknown metformin Adverse Reaction (Intermediate, Verified 06/28/20 10:22) loose stool, bladder infections sitagliptin [From Janumet] Adverse Reaction (Intermediate, Verified 06/28/20 10:22) loose stool batroxobin Adverse Reaction (Unknown, Verified 06/28/20 10:22) unknown exenatide [From Byetta] Adverse Reaction (Unknown, Verified 06/28/20 10:22) unknown nizatidine [From Axid] Adverse Reaction (Unknown, Verified 06/28/20 10:22) unknown sertraline [From Zoloft] Adverse Reaction (Unknown, Verified 06/28/20 10:22) unknown simvastatin [From Zocor] Adverse Reaction (Unknown, Verified 06/28/20 10:22) unknown trandolapril [From Mavik] Adverse Reaction (Unknown, Verified 06/28/20 10:22) unknown Home Medications: Ambulatory Orders Medication Instructions Recorded hydrochlorothiazide 25 mg tablet 25 mg PO DAILY #30 tab 06/25/19 lisinopril 40 mg tablet 40 mg PO DAILY #90 tab 06/25/19 calcium carbonate 500 mg (1,250 1 tab PO BID 07/20/19 mg)-vitamin D3 125 unit tablet cholecalciferol (vitamin D3) 50 2,000 unit PO DAILY 07/20/19 mcg (2,000 unit) capsule lactobacillus combination no.8 3 3,000 mmu cells PO BID 07/20/19 billion cell capsule omeprazole magnesium 20 mg 20 mg PO DAILY PRN 07/20/19 tablet,delayed release trimethoprim 100 mg tablet 100 mg PO Q12H 07/20/19 glimepiride 4 mg tablet 4 mg PO BID #180 tab 08/24/19 insulin lispro protamine-lispro See Rx Instructions SC TID ml 08/24/19 100 unit/mL (50-50) subcutaneous pen Cyanocobalamin (Vitamin B-12) 1,000 mcg PO DAILY 06/14/20 [Vitamin B-12] Acetaminophen [Tylenol] 1,000 mg PO Q8 06/30/20 Albuterol Aerosols [Ventolin 2.5 mg INHALATION Q2H PRN PRN 06/30/20 Aerosols] vial.neb. Aspirin [Aspirin, Baby] 81 mg PO BIDCM 06/30/20 Calcium Carbonate [Tums] 500 mg PO Q4H PRN PRN tab 06/30/20 Ceftriaxone 2 gm IV Q24 06/30/20 Senna/Docusate Sodium [Senokot-S] 2 tab PO BID 06/30/20 Vancomycin IV 750 mg IV Q12H 06/30/20 traMADol [Ultram] 50 - 100 mg PO Q6H PRN PRN #30 tab 06/30/20 Surgical History: Surgical History (Last Reviewed 08/24/19 @ 12:[address] Jeremy Harrison MD) History of tonsillectomy Z90.89 H/O tubal ligation Z98.51 History of cataract surgery Z98.49 bilateral History of cholecystectomy Z90.49 1975 History of tonsillectomy Z90.89 1949 Surgical History: cataract, cholecystectomy, hysterectomy, tonsillectomy, - - bilateral tubal ligation, left knee arthroscopic surgery, initial right total knee replacement, recent right total knee replacement removal with antibiotic spacer and biodegradable antibiotic delivery system. 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 Jeremy Harrison MD) Mother CVA (cerebral vascular accident) Aunt Breast cancer History Items: Heart Disease, Hypertension Paternal Family History: Family History (Last Reviewed 08/24/19 @ 12:[address] Jeremy Harrison MD) Mother CVA (cerebral vascular accident) Aunt Breast cancer History Items: - - Patient notes father passed secondary to complications from an aortic aneurysm while being repaired on the operating table. Capacity - Capacity Assessment Tool Can the patient make a choice & communicate that choice?: Yes Can the patient understand benefits, risks and alternatives?: Yes Can the patient make a logical, rational choice?: Yes Is the choice the patient makes consistent w/ their values?: Yes Is there an impending, emergent risk to the patient?: No Does the patient have an Advance Directive?: No Is there a Surrogate Available?: Yes i.e. HCPOA: Yes i.e. close relative (spouse, child, parent, sibling)?: Yes Review of Systems Constitutional: Denies: Chills, Fever, Weight Change HEENT: Denies: Head Aches, Sinus Congestion, Sinus Drainage Cardiovascular: Denies: Chest Pain, Palpitations Respiratory: Denies: Cough, Shortness of breath at rest, Sputum production Gastrointestinal: Denies: Abdominal Pain, Nausea, Vomiting Genitourinary: Denies: Dysuria Musculoskeletal: Denies: Joint Pain, Joint Tenderness Skin: Denies: Rash, Wounds Neurological: Denies: Numbness, Tingling, Focal weakness Psychiatric: Denies: Anxiety, Depression, Homicidal Ideations, Suicidal Ideations Hematologic/ Lymphatic: Denies: Easy Bruising, Easy Bleeding Patient Problems: Active and Suspected Problems (Last Reviewed 08/24/19 @ 12:[address] Jeremy Harrison MD) Debility (Acute) Infection of prosthetic right knee joint (Acute) - Physical Exam Vitals/I&O's: Vital Signs Temp Pulse Resp BP Pulse Ox 98.8 F 52 L 16 110/51 L 95 07/24/20 13:00 07/24/20 13:00 07/24/20 13:00 07/24/20 13:00 07/24/20 13:00 Oxygen Delivery Method Room Air Weight: 81.817 kg Body Mass Index (BMI) 30.7 Intake and Output for Last 24 Hours 07/22/20 07/23/20 07/24/20 23:59 23:59 23:59 Intake Total 1300 / 1300 1180.25 / 1180.25 1490 / 1490 Balance 1300 / 1300 1180.25 / 1180.25 1490 / 1490 General: Alert, Oriented x3, Cooperative HEENT: Atraumatic, PERRLA, EOMI, Normocephalic Neck: Supple, No JVD, Negative Carotid Bruits Lungs: Clear to auscultation, Normal air movement Cardiovascular: Regular rate, No murmurs Abdomen: Bowel Sounds Present, Soft, Non Tender Extremities: No edema, Capillary Refill Less than 3 Seconds Skin: No rashes, No breakdown Musculoskeletal: No Tenderness to Palpation of Joints or Extremities Neurological: Cranial nerves II-XII grossly intact Psych/Mental Status: Normal Affect, Appropriate Laboratory Results 07/24/20 06:48: POC Glucose 106 07/24/20 10:33: POC Glucose 169 H 07/24/20 11:32: Vancomycin Trough 16.9 H 07/24/20 16:32: POC Glucose 136 H Current Medications Acetaminophen (Acetaminophen 500 Mg Tablet) 1,000 mg PO Q6H PRN PRN Reason: Pain Score 1-3 Last Admin: 07/24/20 09:15 Dose: 1,000 mg Documented by: Aspirin (Aspirin 81 Mg Tab.Chew) 81 mg PO BIDCM [facility] Stop: 07/26/20 17:00 Last Admin: 07/24/20 16:29 Dose: 81 mg Documented by: Bisacodyl (Bisacodyl 10 Mg Suppository) 10 mg RECTAL DAILY PRN PRN Reason: Constipation Calamine/Phenol (Menthol/Lanolin/Calamine/Znox 113 Gm Tube) 1 applic TOPICAL DAILY [facility]; Protocol Last Admin: 07/24/20 06:28 Dose: 1 applicatio Documented by: Calcium Carbonate (Calcium Carbonate 500 Mg Tablet) 500 mg PO Q4H PRN PRN PRN Reason: HEARTBURN Last Admin: 07/22/20 21:27 Dose: 500 mg Documented by: Calcium/Vitamin D (Calcium Carb/Vitamin D 1 Tablet Table[facility]) [facility] Last Admin: 07/24/20 16:29 Dose: 1 tablet Documented by: Cholecalciferol (Cholecalciferol (Vit D3) 1,000 Unit (25mcg)) 2,000 unit PO DAILY [facility] Last Admin: 07/24/20 06:22 Dose: 2,000 unit Documented by: Cyanocobalamin (Cyanocobalamin 500 Mcg Tablet) 1,000 mcg PO DAILY [facility] Last Admin: 07/24/20 06:23 Dose: 1,000 mcg Documented by: Glimepiride (Glimepiride 1 Mg Tablet) 1 mg PO BIDCM [facility] Last Admin: 07/24/20 16:29 Dose: 1 mg Documented by: Heparin Sodium (Beef Lung) (Heparin Pf Lock 10 Units/Ml 50 Units/5 Ml Syringe) 50 units IV UD PRN PRN Reason: PICC Line Heparin Flush Last Admin: 07/24/20 09:43 Dose: 50 units Documented by: Hydrochlorothiazide (Hydrochlorothiazide 25 Mg Tablet) 25 mg PO DAILY [facility] Last Admin: 07/24/20 06:23 Dose: 25 mg Documented by: Ceftriaxone Sodium 2 gm/ (Sodium Chloride) 50 mls @ 100 mls/hr IV Q24 [facility] Stop: 08/09/20 10:01 Last Infusion: 07/24/20 11:17 Dose: Infused Documented by: Sodium Chloride () 250 mls @ 15 mls/hr IV .[id number] PRN PRN Reason: Saline Flush Last Infusion: 07/24/20 12:49 Dose: Infused Documented by: Sodium Chloride () 250 mls @ 15 mls/hr IV .[id number] PRN PRN Reason: Additional IVPB Infusion Last Infusion: 07/24/20 14:07 Dose: Infused Documented by: Vancomycin HCl 750 mg/ Sodium (Chloride) 265 mls @ 250 mls/hr IV Q12H [facility] Stop: 08/09/20 01:00 Last Infusion: 07/24/20 14:07 Dose: Infused Documented by: Lactobacillus Acidophilus (Lactobacillus Acidophilus) 1 tablet PO BID [facility] Last Admin: 07/24/20 17:10 Dose: 1 tablet Documented by: Lisinopril (Lisinopril 40 Mg Tablet) 40 mg PO DAILY [facility] Last Admin: 07/24/20 06:22 Dose: 40 mg Documented by: Magnesium Hydroxide (Magnesium Hydroxide 30 Ml Udc) 30 ml PO DAILY PRN PRN Reason: Constipation Melatonin (Melatonin 10 Mg Tablet) 10 mg PO QHS PRN PRN PRN Reason: INSOMNIA Multi-Ingredient Cream (Mineral Oil/Petrolatum,White Jar) 1 applic TOPICAL BID [facility]; Protocol Last Admin: 07/24/20 17:11 Dose: 1 applicatio Documented by: Oxycodone HCl (Oxycodone 5 Mg Tablet) 5 mg PO Q4H PRN PRN PRN Reason: Pain Score 6-10 Last Admin: 07/03/20 06:01 Dose: 5 mg Documented by: Pantoprazole Sodium (Pantoprazole Sodium 20 Mg Tablet) 20 mg PO DAILY PRN PRN Reason: HEARTBURN Last Admin: 07/17/20 05:58 Dose: 20 mg Documented by: Polyethylene Glycol (Polyethylene Glycol 3350 17 Gm Packet) 17 gm PO DAILY [facility] Last Admin: 07/24/20 06:22 Dose: 17 gm Documented by: Senna/Docusate Sodium (Senna/Docusate Sodium 1 Tablet) 1 tablet PO BID [facility] Last Admin: 07/24/20 17:09 Dose: Not Given Documented by: Sodium Chloride (0.9% Saline Lock 10 Ml Syringe) 10 - 40 ml IV UD PRN PRN Reason: Open End PICC Flush Last Admin: 07/24/20 10:23 Dose: 40 ml Documented by: Sodium Chloride (0.9 % Nacl (Sterile) Posiflush 10 Ml) 10 - 40 ml IV UD PRN PRN Reason: Port access or dressing change Sodium Chloride (0.9% Saline Lock 10 Ml Syringe) 10 - 40 ml IV UD PRN PRN Reason: SALINE FLUSH Tramadol HCl (Tramadol 50 Mg Tablet) 50 mg PO Q6H PRN PRN PRN Reason: Pain Score 4-5 Last Admin: 07/10/20 06:27 Dose: 50 mg Documented by: Trimethoprim (Trimethoprim 100 Mg Tablet) 100 mg PO DAILY [facility] Last Admin: 07/24/20 06:23 Dose: 100 mg Documented by: Assessment/Plan All Active Problems (Last Reviewed 08/24/19 @ 12:[address] Jeremy Harrison MD) Infection of right knee (Acute) Debility (Acute) Infection of prosthetic right knee joint (Acute) 74 year old female with below past medical history hospitalized for right prosthetic knee joint infection, underwent right total knee removal with placement of cement spacer 06/28/20, admitted to TCU with debility, here for rehabilitation, strengthening, intravenous antibiotics, prior to discharge home with . Debility - PT/OT. Pain - Tylenol 1000MG Q6H PRN Tramadol 50MG Q6H PRN pain (1-5), Oxycodone 5MG Q4H PRN pain (6-10). Bowel - Miralax 17GM daily, Senna/colace 1 tablet BID, MOM 30ML PO daily PRN, Dulcolax 10MG daily PRN. Adult immunization - Administer Prevnar 13, Pneumovax 23, Fluzone as appropriate. DVT prophylaxis - Aspirin 81MG BID thru 07/26/20. Hypertension - Lisinopril 40MG daily, HCTZ 25MG daily. Calcium deficiency - Calcium D 1 tablet BID. Vitamin D deficiency - D3 2000IU daily. GI prophylaxis - Lactobacillus 1 tablet BID. GERD - Pantoprazole 20MG daily PRN, TUMS 500MG Q4H PRN. Recurrent UTI - Trimethoprim 100MG daily. Diabetes Mellitus II - Glimepiride 1MG BID. Vitamin B12 deficiency - B12 1000MCG daily. Right prosthetic knee joint infection - Dr. Bowden, Ceftriaxone 2GM IV Q24H, Vancomycin 750MG IV Q12H thru 08/09/20. Recurrent UTI - Trimethoprim 100MG daily. Insomnia - Melatonin 10MG QHS PRN. Skin irritation - Calmoseptine topical daily, Eucerin topical BID.
[2020-07-24 23:13] VITALS: PULSE 71; RESP 16; O2SAT 96
[2020-07-25] MEDS: 0.9% Saline Lock 10 ML Syringe IV ×2 (00:18→10:39)
[2020-07-25] MEDS: hydroCHLOROthiazide 25 MG Tablet PO (06:01)
[2020-07-25] MEDS: Trimethoprim 100 MG Tablet PO (06:01)
[2020-07-25] MEDS: Menthol/Lanolin/Calamine/Znox 113 GM Tube 1 APPLIC TOPICAL (06:01)
[2020-07-25] MEDS: Polyethylene Glycol 3350 17 GM PACKET PO (06:01)
[2020-07-25] MEDS: Lisinopril 40 MG Tablet PO (06:01)
[2020-07-25] MEDS: Cyanocobalamin 500 MCG Tablet 1000 MCG PO (06:01)
[2020-07-25 06:04] VITALS: BP 149/53; PULSE 67; RESP 16; TEMP 37.1; O2SAT 95
[2020-07-25 06:36] LABS: Bedside Glucose 110 mg/dL (70-110)
[2020-07-25] MEDS: Aspirin 81 MG TAB.CHEW PO ×2 (08:03→17:17)
[2020-07-25] MEDS: Glimepiride 1 MG Tablet PO ×2 (08:04→17:16)
[2020-07-25] MEDS: Calcium Carb/Vitamin D 1 TABLET Tablet PO ×2 (08:04→17:17)
[2020-07-25] MEDS: Acetaminophen 500 MG Tablet 1000 MG PO (08:35)
[2020-07-25 11:11] LABS: Bedside Glucose 105 mg/dL (70-110)
--- NOTE | 2020-07-25 12:41 | NURSING ---
PICC dressing changed per policy, pt tolerated well. PICC remains patent with noted blood return.
[2020-07-25 13:24] VITALS: BP 130/58; PULSE 59; RESP 16; TEMP 36.4; O2SAT 98
[2020-07-25 16:25] LABS: Bedside Glucose 137 mg/dL (70-110)
[2020-07-26 04:00] VITALS: BP 143/51; PULSE 56; RESP 18; TEMP 36.6; O2SAT 96
[2020-07-26] MEDS: hydroCHLOROthiazide 25 MG Tablet PO (05:40)
[2020-07-26] MEDS: Lisinopril 40 MG Tablet PO (05:40)
[2020-07-26] MEDS: Trimethoprim 100 MG Tablet PO (05:40)
[2020-07-26] MEDS: Cyanocobalamin 500 MCG Tablet 1000 MCG PO (05:40)
[2020-07-26] MEDS: Polyethylene Glycol 3350 17 GM PACKET PO (05:41)
[2020-07-26] MEDS: Menthol/Lanolin/Calamine/Znox 113 GM Tube 1 APPLIC TOPICAL (05:48)
[2020-07-26 06:40] LABS: Bedside Glucose 118 mg/dL (70-110)
[2020-07-26] MEDS: Aspirin 81 MG TAB.CHEW PO ×2 (08:04→17:30)
[2020-07-26] MEDS: Glimepiride 1 MG Tablet PO ×2 (08:04→17:30)
[2020-07-26] MEDS: Calcium Carb/Vitamin D 1 TABLET Tablet PO ×2 (08:04→17:30)
[2020-07-26] MEDS: Acetaminophen 500 MG Tablet 1000 MG PO (09:53)
[2020-07-26] MEDS: 0.9% Saline Lock 10 ML Syringe IV ×3 (10:48→17:04)
[2020-07-26 11:05] LABS: Bedside Glucose 112 mg/dL (70-110)
--- NOTE | 2020-07-26 15:42 | NURSING ---
no blood return on picc. reported to rn.
--- NOTE | 2020-07-26 15:56 | NURSING ---
order for cathflo given by . albert/solderer furnace to give.
[2020-07-26 17:00] LABS: Bedside Glucose 103 mg/dL (70-110)
[2020-07-26] MEDS: Alteplase 2 MG/2 ML Vial IV (17:04)
[2020-07-26 21:20] VITALS: PULSE 58; RESP 18
[2020-07-27] MEDS: 0.9% Saline Lock 10 ML Syringe IV ×2 (00:27→10:50)
[2020-07-27 04:00] VITALS: BP 110/50; PULSE 68; RESP 16; TEMP 36.9; O2SAT 94
[2020-07-27] MEDS: Trimethoprim 100 MG Tablet PO (06:04)
[2020-07-27] MEDS: hydroCHLOROthiazide 25 MG Tablet PO (06:05)
[2020-07-27] MEDS: Cyanocobalamin 500 MCG Tablet 1000 MCG PO (06:05)
[2020-07-27] MEDS: Lisinopril 40 MG Tablet PO (06:05)
[2020-07-27] MEDS: Polyethylene Glycol 3350 17 GM PACKET PO (06:06)
[2020-07-27] MEDS: Menthol/Lanolin/Calamine/Znox 113 GM Tube 1 APPLIC TOPICAL (06:10)
[2020-07-27 06:26] LABS: Bedside Glucose 108 mg/dL (70-110)
[2020-07-27] MEDS: Glimepiride 1 MG Tablet PO ×2 (08:21→17:29)
[2020-07-27] MEDS: Calcium Carb/Vitamin D 1 TABLET Tablet PO ×2 (08:21→17:28)
[2020-07-27 10:00] VITALS: PULSE 59; RESP 18; O2SAT 95
[2020-07-27] MEDS: Acetaminophen 500 MG Tablet 1000 MG PO (13:41)
[2020-07-27 14:27] VITALS: BP 154/68; PULSE 69; RESP 16; TEMP 36.1; O2SAT 94
--- NOTE | 2020-07-27 16:29 | NURSING ---
PT STATED SHE UPDATES .
[2020-07-28] MEDS: 0.9% Saline Lock 10 ML Syringe IV ×3 (00:14→12:11)
[2020-07-28 04:00] VITALS: BP 139/65; PULSE 74; RESP 18; TEMP 36.9; O2SAT 95
[2020-07-28] MEDS: Lisinopril 40 MG Tablet PO (06:27)
[2020-07-28] MEDS: Trimethoprim 100 MG Tablet PO (06:27)
[2020-07-28] MEDS: hydroCHLOROthiazide 25 MG Tablet PO (06:28)
[2020-07-28] MEDS: Polyethylene Glycol 3350 17 GM PACKET PO (06:28)
[2020-07-28] MEDS: Cyanocobalamin 500 MCG Tablet 1000 MCG PO (06:28)
[2020-07-28 06:30] LABS: Bedside Glucose 102 mg/dL (70-110)
[2020-07-28] MEDS: Calcium Carb/Vitamin D 1 TABLET Tablet PO ×2 (08:05→18:14)
[2020-07-28] MEDS: Glimepiride 1 MG Tablet PO ×2 (08:06→18:16)
[2020-07-28 10:46] LABS: Bedside Glucose 142 mg/dL (70-110)
[2020-07-28] MEDS: Acetaminophen 500 MG Tablet 1000 MG PO (13:37)
[2020-07-28 14:24] VITALS: BP 164/66; PULSE 61; RESP 16; TEMP 36.2; O2SAT 94
[2020-07-28 16:36] LABS: Bedside Glucose 142 mg/dL (70-110)
[2020-07-28 20:40] VITALS: PULSE 60; RESP 16; O2SAT 97
[2020-07-29] MEDS: 0.9% Saline Lock 10 ML Syringe IV ×3 (00:09→12:53)
[2020-07-29 04:00] VITALS: BP 127/53; PULSE 59; RESP 16; TEMP 37.1; O2SAT 96
[2020-07-29] MEDS: Cyanocobalamin 500 MCG Tablet 1000 MCG PO (05:55)
[2020-07-29] MEDS: hydroCHLOROthiazide 25 MG Tablet PO (05:55)
[2020-07-29] MEDS: Lisinopril 40 MG Tablet PO (05:56)
[2020-07-29] MEDS: Trimethoprim 100 MG Tablet PO (05:56)
[2020-07-29] MEDS: Polyethylene Glycol 3350 17 GM PACKET PO (06:04)
[2020-07-29] MEDS: Menthol/Lanolin/Calamine/Znox 113 GM Tube 1 APPLIC TOPICAL (06:06)
[2020-07-29 06:31] LABS: Bedside Glucose 100 mg/dL (70-110)
[2020-07-29] MEDS: Glimepiride 1 MG Tablet PO ×2 (07:52→17:11)
[2020-07-29] MEDS: Calcium Carb/Vitamin D 1 TABLET Tablet PO ×2 (07:52→17:11)
[2020-07-29 10:00] VITALS: PULSE 57; RESP 18; O2SAT 94
[2020-07-29 11:20] LABS: Bedside Glucose 121 mg/dL (70-110)
[2020-07-29 11:56] LABS: Erythrocyte Sedimentation Rate 40 mm/hr (0-30)
[2020-07-29 11:57] LABS: Absolute Lymphocyte Count 2.56 X10^3/uL (0.83-4.51); Absolute Neutrophil Count 3.9 X10^3/uL (2.0-7.7); Basophil# 0.11 X10^3/uL; Basophil% 1.5 % (0-1); Eosinophil# 0.34 X10^3/uL; Eosinophils% 4.6 % (0-5); Hematocrit 31.9 % (37-47); Lymphocyte # 2.56 X10^3/ul (4.0); Lymphocyte % 34.4 % (19-41); Mean Corp Hgb Conc 31.3 g/dL (32-36); Mean Corpuscular Hgb 28.1 pg (27.0-32.0); Mean Corpuscular Volume 89.6 fL (81-99); Mean Platelet Vol. 9.7 fl (6.2-12.0); Monocyte# 0.55 X10^3/uL; Monocyte% 7.4 % (0-10); NRBC Flagged by Analyzer 0 % (0-5); Neutrophil # 3.85 X10^3/uL (2.7-7.7); Neutrophil % 51.7 % (47-70); Platelet Count 255 K/mm3 (150-450); RBC Distribution Width CV 13.7 % (11.6-14.6); RBC Distribution Width SD 45.1 fl (35.1-43.9); Red Blood Count 3.56 M/mm3 (4.2-5.4); White Blood Count 7.4 K/mm3 (4.4-11.0)
[2020-07-29 12:05] LABS: Anion Gap 6 (5-15); BUN 15 mg/dL (7-18); BUN/Creat Ratio 15.5 RATIO (10-20); Calcium,Total 9.5 mg/dL (8.5-10.1); Chloride 105 mmol/L (98-107); Creatinine, Serum 0.97 mg/dL (0.55-1.02); EST Glomerular Filtration Rate 60 mL/min (>60); Est Glom Filt Rate - Afr Amer 72 mL/min (>60); Estimated Creatinine Clearance 47.63 ml/min; Glucose 117 mg/dL (74-106); Potassium 3.8 mmol/L (3.5-5.1); Sodium Level 138 mmol/L (136-145)
[2020-07-29 12:31] LABS: Vancomycin, Trough Level 17.2 ug/mL (5.0-15.0)
--- NOTE | 2020-07-29 12:49 | PCM.RX.CS ---
Consult Pharmacy has been consulted to manage selected antiobiotic: Vancomycin Type of Consult: Follow-up Prior Doses of Antibiotics Received/Current Regimen: current regimen is 750mg IV q12h Labs: Sodium 138 mmol/L (136-145) 07/29/20 11:25 Potassium 3.8 mmol/L (3.5-5.1) 07/29/20 11:25 Chloride 105 mmol/L (98-107) 07/29/20 11:25 Carbon Dioxide 27.0 mmol/L (21.0-32.0) 07/29/20 11:25 Anion Gap 6 (5-15) 07/29/20 11:25 BUN 15 mg/dL (7-18) 07/29/20 11:25 Creatinine 0.97 mg/dL (0.55-1.02) 07/29/20 11:25 Est GFR (MDRD) Af Amer 72 mL/min (>60) 07/29/20 11:25 Est GFR (MDRD) Non-Af 60 mL/min (>60) 07/29/20 11:25 BUN/Creatinine Ratio 15.5 RATIO (-20) 07/29/20 11:25 Glucose 117 mg/dL (74-106) H 07/29/20 11:25 Vancomycin Trough 17.2 ug/mL (5.0-15.0) H 07/29/20 11:25 Microbiology: Microbiology 07/17/20 12:00 Mucosa - Nose Respiratory Syncytial Virus Ag Scrn - Final 07/10/20 09:08 Urine Catheter - Catheter Urine Culture - Final Culture exhibits no growth. 07/03/20 11:04 Mucosa - Nose - Final Weight used for dosin.8 kg Estimated Creatinine Clearance: 48ml/min Goal Trough: 15-20 mcg/mL Pharmacy Plan for Drug Dosing: Trough level drawn this morning was 17.2. This is within goal range so will keep current dosing. Will order another trough in 4 days per protocol. Pharmacy Service will continue to monitor and adjust dosing as required. Current renal function is SCr 0.97, CrCl 48. Follow-Up Labs: Trough Vancomycin Labs to be done on [date and time ordered]: 08/02/20 11:30
[2020-07-29 14:16] VITALS: BP 147/71; PULSE 59; RESP 16; TEMP 36.7; O2SAT 96
--- NOTE | 2020-07-29 16:23 | NURSING ---
stated she talks to every day.
[2020-07-30 06:36] LABS: Bedside Glucose 90 mg/dL (70-110)
[2020-07-30 06:44] VITALS: BP 148/65; PULSE 59; RESP 16; TEMP 36.6; O2SAT 94
[2020-07-30] MEDS: Polyethylene Glycol 3350 17 GM PACKET PO (06:45)
[2020-07-30] MEDS: hydroCHLOROthiazide 25 MG Tablet PO (06:46)
[2020-07-30] MEDS: Cyanocobalamin 500 MCG Tablet 1000 MCG PO (06:46)
[2020-07-30] MEDS: Trimethoprim 100 MG Tablet PO (06:46)
[2020-07-30] MEDS: Lisinopril 40 MG Tablet PO (06:47)
[2020-07-30] MEDS: Menthol/Lanolin/Calamine/Znox 113 GM Tube 1 APPLIC TOPICAL (06:53)
[2020-07-30] MEDS: Calcium Carb/Vitamin D 1 TABLET Tablet PO ×2 (07:48→17:05)
[2020-07-30] MEDS: Glimepiride 1 MG Tablet PO ×2 (07:48→17:05)
[2020-07-30] MEDS: 0.9% Saline Lock 10 ML Syringe IV ×3 (09:14→13:09)
[2020-07-30 11:01] LABS: Bedside Glucose 175 mg/dL (70-110)
[2020-07-30 14:51] VITALS: BP 126/43; PULSE 56; RESP 16; TEMP 37.1; O2SAT 94
[2020-07-30 16:51] LABS: Bedside Glucose 161 mg/dL (70-110)
--- NOTE | 2020-07-30 20:55 | NURSING ---
Addendum entered by Loli Morales 07/30/20 22:32: PICC with good blood return after cathflo. PICC flushed with 20 cc Original Note: Patient's PICC line able to be flushed, but there is no blood return. Patient's arm positioned differently but PICC line still has no blood return. Dr. Mccracken notified. Orders given for cathflo x1.
[2020-07-30] MEDS: Alteplase 2 MG/2 ML Vial IV (21:45)
[2020-07-31 04:00] VITALS: BP 138/63; PULSE 62; RESP 18; TEMP 36.8; O2SAT 96
[2020-07-31] MEDS: hydroCHLOROthiazide 25 MG Tablet PO (05:41)
[2020-07-31] MEDS: Lisinopril 40 MG Tablet PO (05:41)
[2020-07-31] MEDS: Polyethylene Glycol 3350 17 GM PACKET PO (05:41)
[2020-07-31] MEDS: Menthol/Lanolin/Calamine/Znox 113 GM Tube 1 APPLIC TOPICAL (05:42)
[2020-07-31] MEDS: Trimethoprim 100 MG Tablet PO (05:42)
[2020-07-31] MEDS: Cyanocobalamin 500 MCG Tablet 1000 MCG PO (05:44)
[2020-07-31 06:21] LABS: Bedside Glucose 117 mg/dL (70-110)
[2020-07-31] MEDS: Calcium Carb/Vitamin D 1 TABLET Tablet PO ×2 (08:55→17:04)
[2020-07-31] MEDS: Glimepiride 1 MG Tablet PO ×2 (08:55→17:04)
[2020-07-31 10:00] VITALS: PULSE 64; RESP 16; O2SAT 96
[2020-07-31] MEDS: 0.9% Saline Lock 10 ML Syringe IV ×2 (10:29→11:57)
[2020-07-31] MEDS: Acetaminophen 500 MG Tablet 1000 MG PO (10:35)
[2020-07-31 11:10] LABS: Bedside Glucose 128 mg/dL (70-110)
[2020-07-31 13:42] VITALS: BP 136/62; PULSE 56; RESP 16; TEMP 36.5; O2SAT 94
--- NOTE | 2020-07-31 14:42 | NURSING ---
Spoke with patients to give update.
[2020-07-31 16:26] LABS: Bedside Glucose 129 mg/dL (70-110)
[2020-08-01 04:00] VITALS: BP 148/64; PULSE 52; RESP 18; TEMP 36.8; O2SAT 98
[2020-08-01] MEDS: Polyethylene Glycol 3350 17 GM PACKET PO (05:53)
[2020-08-01] MEDS: hydroCHLOROthiazide 25 MG Tablet PO (05:53)
[2020-08-01] MEDS: Trimethoprim 100 MG Tablet PO (05:54)
[2020-08-01] MEDS: Menthol/Lanolin/Calamine/Znox 113 GM Tube 1 APPLIC TOPICAL (05:54)
[2020-08-01] MEDS: Lisinopril 40 MG Tablet PO (05:54)
[2020-08-01] MEDS: Cyanocobalamin 500 MCG Tablet 1000 MCG PO (05:54)
[2020-08-01 06:31] LABS: Bedside Glucose 105 mg/dL (70-110)
[2020-08-01] MEDS: Glimepiride 1 MG Tablet PO ×2 (08:03→17:24)
[2020-08-01] MEDS: Calcium Carb/Vitamin D 1 TABLET Tablet PO ×2 (08:03→17:24)
[2020-08-01] MEDS: 0.9% Saline Lock 10 ML Syringe IV ×3 (10:41→23:18)
[2020-08-01 11:21] LABS: Bedside Glucose 123 mg/dL (70-110)
--- NOTE | 2020-08-01 14:03 | NURSING ---
pt stated she up dates Masoud
[2020-08-01 14:07] VITALS: BP 144/63; PULSE 59; RESP 18; TEMP 36.6; O2SAT 96
--- NOTE | 2020-08-01 14:59 | PCM.PN.RX ---
<EllisRosemary M - Last Filed: 08/01/20 14:59> Progress Note - Pharmacy Subjective: TCU MONTHLY FOLLOW-UP NOTE Objective: Allergies ciprofloxacin Allergy (Severe, Verified 06/28/20 10:22) impairment of motor skills epinephrine [From Xylocaine with Epinephrine] Allergy (Unknown, Verified 06/28/20 10:22) unknown lidocaine [From Xylocaine with Epinephrine] Allergy (Unknown, Verified 06/28/20 10:22) unknown Sulfa (Sulfonamide Antibiotics) Allergy (Unknown, Verified 06/28/20 10:22) unknown metformin Adverse Reaction (Intermediate, Verified 06/28/20 10:22) loose stool, bladder infections sitagliptin [From Janumet] Adverse Reaction (Intermediate, Verified 06/28/20 10:22) loose stool batroxobin Adverse Reaction (Unknown, Verified 06/28/20 10:22) unknown exenatide [From Byetta] Adverse Reaction (Unknown, Verified 06/28/20 10:22) unknown nizatidine [From Axid] Adverse Reaction (Unknown, Verified 06/28/20 10:22) unknown sertraline [From Zoloft] Adverse Reaction (Unknown, Verified 06/28/20 10:22) unknown simvastatin [From Zocor] Adverse Reaction (Unknown, Verified 06/28/20 10:22) unknown trandolapril [From Mavik] Adverse Reaction (Unknown, Verified 06/28/20 10:22) unknown Current Medications Generic Name Dose Route Start Last Admin Trade Name Freq PRN Reason Stop Dose Admin Acetaminophen 1,000 mg 07/12/20 07:43 07/31/20 10:35 Acetaminophen 500 Mg Tablet PO 500 mg Q6H PRN Administration Pain Score 1-3 Bisacodyl 10 mg 06/30/20 19:51 Bisacodyl 10 Mg Suppository RECTAL DAILY PRN Constipation Calamine/Phenol 1 applic 07/18/20 06:00 08/01/20 05:54 Menthol/Lanolin/Calamine/Znox 113 Gm Tube TOPICAL 1 applicatio DAILY RAEANN Administration Protocol Calcium Carbonate 500 mg 06/30/20 23:00 07/22/20 21:27 Calcium Carbonate 500 Mg Tablet PO 500 mg Q4H PRN PRN Administration HEARTBURN Calcium/Vitamin D 1 tablet 07/01/20 08:00 08/01/20 08:03 Calcium Carb/Vitamin D 1 Tablet Tablet PO 1 tablet BIDCM RAEANN Administration Cholecalciferol 2,000 unit 07/01/20 06:00 08/01/20 05:54 Cholecalciferol (Vit D3) 1,000 Unit (25mcg) PO 2,000 unit DAILY RAEANN Administration Cyanocobalamin 1,000 mcg 07/01/20 06:00 08/01/20 05:54 Cyanocobalamin 500 Mcg Tablet PO 1,000 mcg DAILY RAEANN Administration Glimepiride 1 mg 07/22/20 08:00 08/01/20 08:03 Glimepiride 1 Mg Tablet PO 1 mg BIDCM RAEANN Administration Heparin Sodium (Beef Lung) 50 units 06/30/20 22:42 07/30/20 10:03 Heparin Pf Lock 10 Units/Ml 50 Units/5 Ml Syringe IV 50 units UD PRN Administration PICC Line Heparin Flush Hydrochlorothiazide 25 mg 07/01/20 06:00 08/01/20 05:53 Hydrochlorothiazide 25 Mg Tablet PO 25 mg DAILY RAEANN Administration Ceftriaxone Sodium 2 gm/ 50 mls @ 100 mls/hr 07/01/20 10:00 08/01/20 11:22 Sodium Chloride IV 08/09/20 10:01 Infused Q24 RAEANN Infusion Sodium Chloride 250 mls @ 15 mls/hr 06/30/20 23:37 07/29/20 02:00 IV 0 mls/hr .[id number] PRN Infusion Saline Flush Sodium Chloride 250 mls @ 15 mls/hr 06/30/20 23:37 07/24/20 14:07 IV Infused .[id number] PRN Infusion Additional IVPB Infusion Vancomycin HCl 750 mg/ Sodium 265 mls @ 250 mls/hr 07/12/20 00:00 08/01/20 12:50 Chloride IV 08/09/20 01:00 Infused Q12H RAEANN Infusion Lactobacillus Acidophilus 1 tablet 07/01/20 06:00 08/01/20 05:54 Lactobacillus Acidophilus PO 1 tablet BID RAEANN Administration Lisinopril 40 mg 07/01/20 06:00 08/01/20 05:54 Lisinopril 40 Mg Tablet PO 40 mg DAILY RAEANN Administration Magnesium Hydroxide 30 ml 06/30/20 19:51 Magnesium Hydroxide 30 Ml Udc PO DAILY PRN Constipation Melatonin 10 mg 07/10/20 08:02 Melatonin 10 Mg Tablet PO QHS PRN PRN INSOMNIA Multi-Ingredient Cream 1 applic 07/18/20 06:00 08/01/20 05:54 Mineral Oil/Petrolatum,White Jar TOPICAL 1 applicatio BID RAEANN Administration Protocol Oxycodone HCl 5 mg 06/30/20 19:50 07/03/20 06:01 Oxycodone 5 Mg Tablet PO 5 mg Q4H PRN PRN Administration Pain Score 6-10 Pantoprazole Sodium 20 mg 06/30/20 23:08 07/17/20 05:58 Pantoprazole Sodium 20 Mg Tablet PO 20 mg DAILY PRN Administration HEARTBURN Polyethylene Glycol 17 gm 07/01/20 06:00 08/01/20 05:53 Polyethylene Glycol 3350 17 Gm Packet PO 17 gm DAILY RAEANN Administration Senna/Docusate Sodium 1 tablet 07/01/20 06:00 08/01/20 05:12 Senna/Docusate Sodium 1 Tablet PO Not Given BID RAEANN Sodium Chloride 10 - 40 ml 06/30/20 22:42 08/01/20 11:21 0.9% Saline Lock 10 Ml Syringe IV 10 ml UD PRN Administration Open End PICC Flush Sodium Chloride 10 - 40 ml 06/30/20 22:42 0.9 % Nacl (Sterile) Posiflush 10 Ml IV UD PRN Port access or dressing change Sodium Chloride 10 - 40 ml 07/03/20 23:53 0.9% Saline Lock 10 Ml Syringe IV UD PRN SALINE FLUSH Tramadol HCl 50 mg 06/30/20 19:50 07/10/20 06:27 Tramadol 50 Mg Tablet PO 50 mg Q6H PRN PRN Administration Pain Score 4-5 Trimethoprim 100 mg 07/12/20 06:00 08/01/20 05:54 Trimethoprim 100 Mg Tablet PO 100 mg DAILY RAEANN Administration Problem List (Last Reviewed 08/24/19 @ 12:[address] 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) Hypertension (Chronic) Hearing loss (Chronic) Osteoporosis (Chronic) Recurrent UTI (Chronic) Glaucoma (Chronic) Atrophic vaginitis (Chronic) GERD (gastroesophageal reflux disease) (Chronic) Diabetes (Chronic) Vital Signs Temp Pulse Resp BP Pulse Ox 97.8 F 59 L 18 144/63 H 96 08/01/20 14:07 08/01/20 14:07 08/01/20 14:07 08/01/20 14:07 08/01/20 14:07 Oxygen Delivery Method Room Air Weight: 80.343 kg Body Mass Index (BMI) 30.7 Sodium 138 mmol/L (136-145) 07/29/20 11:25 Potassium 3.8 mmol/L (3.5-5.1) 07/29/20 11:25 Chloride 105 mmol/L (98-107) 07/29/20 11:25 Carbon Dioxide 27.0 mmol/L (21.0-32.0) 07/29/20 11:25 Anion Gap 6 (5-15) 07/29/20 11:25 BUN 15 mg/dL (7-18) 07/29/20 11:25 Creatinine 0.97 mg/dL (0.55-1.02) 07/29/20 11:25 Est GFR (MDRD) Af Amer 72 mL/min (>60) 07/29/20 11:25 Est GFR (MDRD) Non-Af 60 mL/min (>60) 07/29/20 11:25 BUN/Creatinine Ratio 15.5 RATIO (10-20) 07/29/20 11:25 Glucose 117 mg/dL (74-106) H 07/29/20 11:25 Vancomycin Trough 17.2 ug/mL (5.0-15.0) H 07/29/20 11:25 Assessment/Plan: 1. Pain: Acetaminophen 1000mg PO Q6h PRN Pain 1-3/10, Tramadol 50mg PO Q6H PRN pain score 4-5/10 , Oxycodone 5mg PO Q4H PRN pain score 6-10/10. Please monitor for improvement/worsening of pain and PRN medication use. 2. Hypertension: Hydrochlorothiazide 25mg PO daily, Lisinopril 40mg PO daily. Please monitor BP( last BP 07/03/20; 116/44) , SCr/BUN, and electrolyte levels 3. Diabetes Mellitus II: Glimepiride 4mg PO BID. [place] continue to monitor for S/S hypoglycemia, BG levels, and A1c every 3 months as clinically indicated. 4. GERD: Pantoprazole 20mg PO daily PRN heartburn , TUMS 500mg PO Q4H PRN heartburn. Please monitor for improvement/worsening of GERD and PRN use 5. Recurrent UTI: Trimethoprim 100mg PO Q12H. Please monitor for S/S of UTI improvement/worsening. 6. Right prosthetic knee joint infection: ceftriaxone 2gm IV Q24H , Vancomycin 750mg IV Q12H thru 08/09/20. Please monitor vancomycin trough levels ,SCr/BUN, and improvement/worsening of infection. 7. General Health: Calcium/Vitamin D 1 tablet PO BID, Vitamin D3 2000unit PO daily , Vitamin B12 1000mcg PO daily, Lactobacillus 1 tablet PO BID. 8. Insomnia: Melatonin 10mg PO QHS PRN. Please continue to monitor for PRN medication use, medication effectiveness. If medication ineffective, may try administering 2 hours prior to bedtime and assess effectiveness of medication. Psychotropic Medications: None Unnecessary Medications: None Bowel Regimen: Bisacodyl 10mg OR daily PRN constipation, MOM 30mL PO daily PRN constipation, Miralax 17gm PO daily , Senna/colace 1 tablet PO BID. Please monitor S/S constipation/diarrhea and PRN medication use Date of Note:: 08/01/20 - Provider Comments Provider responsibility: Provider responsible to enter orders to implement recommendations <Ra Mccracken Chi - Last Filed: 08/01/20 18:30> Progress Note - Pharmacy Subjective: [] Objective: Allergies ciprofloxacin Allergy (Severe, Verified 06/28/20 10:22) impairment of motor skills epinephrine [From Xylocaine with Epinephrine] Allergy (Unknown, Verified 06/28/20 10:22) unknown lidocaine [From Xylocaine with Epinephrine] Allergy (Unknown, Verified 06/28/20 10:22) unknown Sulfa (Sulfonamide Antibiotics) Allergy (Unknown, Verified 06/28/20 10:22) unknown metformin Adverse Reaction (Intermediate, Verified 06/28/20 10:22) loose stool, bladder infections sitagliptin [From Janumet] Adverse Reaction (Intermediate, Verified 06/28/20 10:22) loose stool batroxobin Adverse Reaction (Unknown, Verified 06/28/20 10:22) unknown exenatide [From Byetta] Adverse Reaction (Unknown, Verified 06/28/20 10:22) unknown nizatidine [From Axid] Adverse Reaction (Unknown, Verified 06/28/20 10:22) unknown sertraline [From Zoloft] Adverse Reaction (Unknown, Verified 06/28/20 10:22) unknown simvastatin [From Zocor] Adverse Reaction (Unknown, Verified 06/28/20 10:22) unknown trandolapril [From Mavik] Adverse Reaction (Unknown, Verified 06/28/20 10:22) unknown Current Medications Generic Name Dose Route Start Last Admin Trade Name Irvinq PRN Reason Stop Dose Admin Acetaminophen 1,000 mg 07/12/20 07:43 07/31/20 10:35 Acetaminophen 500 Mg Tablet PO 500 mg Q6H PRN Administration Pain Score 1-3 Bisacodyl 10 mg 06/30/20 19:51 Bisacodyl 10 Mg Suppository RECTAL DAILY PRN Constipation Calamine/Phenol 1 applic 07/18/20 06:00 08/01/20 05:54 Menthol/Lanolin/Calamine/Znox 113 Gm Tube TOPICAL 1 applicatio DAILY RAEANN Administration Protocol Calcium Carbonate 500 mg 06/30/20 23:00 07/22/20 21:27 Calcium Carbonate 500 Mg Tablet PO 500 mg Q4H PRN PRN Administration HEARTBURN Calcium/Vitamin D 1 tablet 07/01/20 08:00 08/01/20 17:24 Calcium Carb/Vitamin D 1 Tablet Tablet PO 1 tablet BIDCM RAEANN Administration Cholecalciferol 2,000 unit 07/01/20 06:00 08/01/20 05:54 Cholecalciferol (Vit D3) 1,000 Unit (25mcg) PO 2,000 unit DAILY RAEANN Administration Cyanocobalamin 1,000 mcg 07/01/20 06:00 08/01/20 05:54 Cyanocobalamin 500 Mcg Tablet PO 1,000 mcg DAILY RAEANN Administration Glimepiride 1 mg 07/22/20 08:00 08/01/20 17:24 Glimepiride 1 Mg Tablet PO 1 mg BIDCM RAEANN Administration Heparin Sodium (Beef Lung) 50 units 06/30/20 22:42 07/30/20 10:03 Heparin Pf Lock 10 Units/Ml 50 Units/5 Ml Syringe IV 50 units UD PRN Administration PICC Line Heparin Flush Hydrochlorothiazide 25 mg 07/01/20 06:00 08/01/20 05:53 Hydrochlorothiazide 25 Mg Tablet PO 25 mg DAILY RAEANN Administration Ceftriaxone Sodium 2 gm/ 50 mls @ 100 mls/hr 07/01/20 10:00 08/01/20 11:22 Sodium Chloride IV 08/09/20 10:01 Infused Q24 RAEANN Infusion Sodium Chloride 250 mls @ 15 mls/hr 06/30/20 23:37 07/29/20 02:00 IV 0 mls/hr .[id number] PRN Infusion Saline Flush Sodium Chloride 250 mls @ 15 mls/hr 06/30/20 23:37 07/24/20 14:07 IV Infused .[id number] PRN Infusion Additional IVPB Infusion Vancomycin HCl 750 mg/ Sodium 265 mls @ 250 mls/hr 07/12/20 00:00 08/01/20 12:50 Chloride IV 08/09/20 01:00 Infused Q12H RAEANN Infusion Lactobacillus Acidophilus 1 tablet 07/01/20 06:00 08/01/20 17:23 Lactobacillus Acidophilus PO 1 tablet BID RAEANN Administration Lisinopril 40 mg 07/01/20 06:00 08/01/20 05:54 Lisinopril 40 Mg Tablet PO 40 mg DAILY RAEANN Administration Magnesium Hydroxide 30 ml 06/30/20 19:51 Magnesium Hydroxide 30 Ml Udc PO DAILY PRN Constipation Melatonin 10 mg 07/10/20 08:02 Melatonin 10 Mg Tablet PO QHS PRN PRN INSOMNIA Multi-Ingredient Cream 1 applic 07/18/20 06:00 08/01/20 17:23 Mineral Oil/Petrolatum,White Jar TOPICAL Not Given BID [facility] Protocol Oxycodone HCl 5 mg 06/30/20 19:50 07/03/20 06:01 Oxycodone 5 Mg Tablet PO 5 mg Q4H PRN PRN Administration Pain Score 6-10 Pantoprazole Sodium 20 mg 06/30/20 23:08 07/17/20 05:58 Pantoprazole Sodium 20 Mg Tablet PO 20 mg DAILY PRN Administration HEARTBURN Polyethylene Glycol 17 gm 07/01/20 06:00 08/01/20 05:53 Polyethylene Glycol 3350 17 Gm Packet PO 17 gm DAILY RAEANN Administration Senna/Docusate Sodium 1 tablet 07/01/20 06:00 08/01/20 17:23 Senna/Docusate Sodium 1 Tablet PO Not Given BID [facility] Sodium Chloride 10 - 40 ml 06/30/20 22:42 08/01/20 11:21 0.9% Saline Lock 10 Ml Syringe IV 10 ml UD PRN Administration Open End PICC Flush Sodium Chloride 10 - 40 ml 06/30/20 22:42 0.9 % Nacl (Sterile) Posiflush 10 Ml IV UD PRN Port access or dressing change Sodium Chloride 10 - 40 ml 07/03/20 23:53 0.9% Saline Lock 10 Ml Syringe IV UD PRN SALINE FLUSH Tramadol HCl 50 mg 06/30/20 19:50 07/10/20 06:27 Tramadol 50 Mg Tablet PO 50 mg Q6H PRN PRN Administration Pain Score 4-5 Trimethoprim 100 mg 07/12/20 06:00 08/01/20 05:54 Trimethoprim 100 Mg Tablet PO 100 mg DAILY RAEANN Administration Problem List (Last Reviewed 08/24/19 @ 12:[address] 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) Hypertension (Chronic) Hearing loss (Chronic) Osteoporosis (Chronic) Recurrent UTI (Chronic) Glaucoma (Chronic) Atrophic vaginitis (Chronic) GERD (gastroesophageal reflux disease) (Chronic) Diabetes (Chronic) Vital Signs Temp Pulse Resp BP Pulse Ox 97.8 F 59 L 18 144/63 H 96 08/01/20 14:07 08/01/20 14:07 08/01/20 14:07 08/01/20 14:07 08/01/20 14:07 Oxygen Delivery Method Room Air Weight: 80.343 kg Body Mass Index (BMI) 30.7 Sodium 138 mmol/L (136-145) 07/29/20 11:25 Potassium 3.8 mmol/L (3.5-5.1) 07/29/20 11:25 Chloride 105 mmol/L (98-107) 07/29/20 11:25 Carbon Dioxide 27.0 mmol/L (21.0-32.0) 07/29/20 11:25 Anion Gap 6 (5-15) 07/29/20 11:25 BUN 15 mg/dL (7-18) 07/29/20 11:25 Creatinine 0.97 mg/dL (0.55-1.02) 07/29/20 11:25 Est GFR (MDRD) Af Amer 72 mL/min (>60) 07/29/20 11:25 Est GFR (MDRD) Non-Af 60 mL/min (>60) 07/29/20 11:25 BUN/Creatinine Ratio 15.5 RATIO (10-20) 07/29/20 11:25 Glucose 117 mg/dL (74-106) H 07/29/20 11:25 Vancomycin Trough 17.2 ug/mL (5.0-15.0) H 07/29/20 11:25 Assessment/Plan: Psychotropic Medications: Unnecessary Medications: Bowel Regimen: - Provider Comments Provider responsibility: Provider responsible to enter orders to implement recommendations Provider Comments to Recommendations by Pharmacy: Agree
--- NOTE | 2020-08-01 16:13 | NURSING ---
Resident and family notified of staff member testing positive for COVID.
[2020-08-01 16:21] LABS: Bedside Glucose 112 mg/dL (70-110)
[2020-08-01 22:20] VITALS: PULSE 59; RESP 16; O2SAT 97
[2020-08-02] MEDS: 0.9% Saline Lock 10 ML Syringe IV ×2 (00:08→13:09)
[2020-08-02 04:00] VITALS: BP 157/74; PULSE 65; RESP 16; TEMP 36.7; O2SAT 96
[2020-08-02 06:35] LABS: Bedside Glucose 88 mg/dL (70-110)
[2020-08-02] MEDS: Trimethoprim 100 MG Tablet PO (06:35)
[2020-08-02] MEDS: Lisinopril 40 MG Tablet PO (06:35)
[2020-08-02] MEDS: Cyanocobalamin 500 MCG Tablet 1000 MCG PO (06:36)
[2020-08-02] MEDS: hydroCHLOROthiazide 25 MG Tablet PO (06:36)
[2020-08-02] MEDS: Polyethylene Glycol 3350 17 GM PACKET PO (06:37)
[2020-08-02] MEDS: Menthol/Lanolin/Calamine/Znox 113 GM Tube 1 APPLIC TOPICAL (06:38)
[2020-08-02] MEDS: Glimepiride 1 MG Tablet PO ×2 (08:07→17:59)
[2020-08-02] MEDS: Calcium Carb/Vitamin D 1 TABLET Tablet PO ×2 (08:07→17:59)
[2020-08-02 08:49] VITALS: PULSE 63; RESP 16; O2SAT 98
[2020-08-02 11:16] LABS: Bedside Glucose 110 mg/dL (70-110)
[2020-08-02 12:27] LABS: Vancomycin, Trough Level 15.9 ug/mL (5.0-15.0)
--- NOTE | 2020-08-02 12:53 | PCM.RX.CS ---
Consult Pharmacy has been consulted to manage selected antiobiotic: Vancomycin Type of Consult: Follow-up Prior Doses of Antibiotics Received/Current Regimen: current regimen is 750mg IV q12h Labs: Sodium 138 mmol/L (136-145) 07/29/20 11:25 Potassium 3.8 mmol/L (3.5-5.1) 07/29/20 11:25 Chloride 105 mmol/L (98-107) 07/29/20 11:25 Carbon Dioxide 27.0 mmol/L (21.0-32.0) 07/29/20 11:25 Anion Gap 6 (5-15) 07/29/20 11:25 BUN 15 mg/dL (7-18) 07/29/20 11:25 Creatinine 0.97 mg/dL (0.55-1.02) 07/29/20 11:25 Est GFR (MDRD) Af Amer 72 mL/min (>60) 07/29/20 11:25 Est GFR (MDRD) Non-Af 60 mL/min (>60) 07/29/20 11:25 BUN/Creatinine Ratio 15.5 RATIO (10-20) 07/29/20 11:25 Glucose 117 mg/dL (74-106) H 07/29/20 11:25 Vancomycin Trough 15.9 ug/mL (5.0-15.0) H 08/02/20 11:20 Microbiology: Microbiology 07/31/20 13:40 Nasal Secretion SARS-CoV-2 Antigen (Rapid) - Final 07/17/20 12:00 Mucosa - Nose Respiratory Syncytial Virus Ag Scrn - Final 07/10/20 09:08 Urine Catheter - Catheter Urine Culture - Final Culture exhibits no growth. 07/03/20 11:04 Mucosa - Nose - Final Weight used for dosin kg Estimated Creatinine Clearance: 48ml/min Goal Trough: 15-20 mcg/mL Pharmacy Plan for Drug Dosing: Trough drawn today was 15.9 (drawn about 11.5 hours post-dose). This is within goal range of 15-20 so will continue current regimen. Since the past several troughs have been within goal range, will not order any more troughs at this time since the vancomycin stop date is one week from now on 08/09/20. Will need to reassess if the stop date changes. Pharmacy Service will continue to monitor and adjust dosing as required.
[2020-08-02 14:16] VITALS: BP 137/53; PULSE 57; RESP 17; TEMP 36.2; O2SAT 96
--- NOTE | 2020-08-02 15:51 | NURSING ---
Pt's IV vanc ran late, called pharmacy and explained that it did not run. Pharmacist aware and stated it was ok to give dose and keep regular scheduled times here on out.
--- NOTE | 2020-08-02 16:03 | CASEMGMT ---
Social Work Spoke with patient about DC plans. Pt's IV ATBs DC 08/09. Pt can DC home 08/10. Pt requesting to continue therapy and go to outpatient therapy at [facility]. Referral made for PT/OT. No DME needs. Pt's might be admitted to [facility] in [place] due to some health concerns and pt would like transportation resources to get to outpatient therapy. Provided resources. Emotional support provided. Plan: DC home with 08/10 with [facility]. No DME. 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
[2020-08-02 16:45] LABS: Bedside Glucose 114 mg/dL (70-110)
--- NOTE | 2020-08-02 19:05 | DCINST_ITS ---
- Discharge Diagnoses Current Active Problems: Current Active and Chronic Problems (Last Reviewed 08/24/19 @ 12:[address] 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) Hypertension (Chronic) Hearing loss (Chronic) Osteoporosis (Chronic) Recurrent UTI (Chronic) Glaucoma (Chronic) Atrophic vaginitis (Chronic) GERD (gastroesophageal reflux disease) (Chronic) Diabetes (Chronic) You will use the following diet at home:: No restrictions, Regular Your food should be the consistency of: Regular Your liquids should be the consistency of: Regular/Thin Discharge Activity: Return to Normal Activity, May Shower, Use Walker Weight Bearing Status: Toe touch weight bearing Keep extremity elevated above heart level: Right Leg Call your doctor if you observe: Fever of 101 or Higher, Inability to urinate, Inability to have a bowel movement, Shortness of breath, Chest pain, Uncontrolled pain Allergies/Adverse Reactions: Allergies ciprofloxacin Allergy (Severe, Verified 06/28/20 10:22) impairment of motor skills epinephrine [From Xylocaine with Epinephrine] Allergy (Unknown, Verified 06/28/20 10:22) unknown lidocaine [From Xylocaine with Epinephrine] Allergy (Unknown, Verified 06/28/20 10:22) unknown Sulfa (Sulfonamide Antibiotics) Allergy (Unknown, Verified 06/28/20 10:22) unknown metformin Adverse Reaction (Intermediate, Verified 06/28/20 10:22) loose stool, bladder infections sitagliptin [From Janumet] Adverse Reaction (Intermediate, Verified 06/28/20 10:22) loose stool batroxobin Adverse Reaction (Unknown, Verified 06/28/20 10:22) unknown exenatide [From Byetta] Adverse Reaction (Unknown, Verified 06/28/20 10:22) unknown nizatidine [From Axid] Adverse Reaction (Unknown, Verified 06/28/20 10:22) unknown sertraline [From Zoloft] Adverse Reaction (Unknown, Verified 06/28/20 10:22) unknown simvastatin [From Zocor] Adverse Reaction (Unknown, Verified 06/28/20 10:22) unknown trandolapril [From Mavik] Adverse Reaction (Unknown, Verified 06/28/20 10:22) unknown Medications to take at Discharge hydrochlorothiazide 25 mg tablet 25 mg PO DAILY #30 tab 10/18/19 lisinopril 40 mg tablet 40 mg PO DAILY #90 tab 06/25/19 calcium carbonate 500 mg (1,250 mg)-vitamin D3 125 unit tablet 1 tab PO BID 07/20/19 cholecalciferol (vitamin D3) 50 mcg (2,000 unit) capsule 2,000 unit PO DAILY 07/20/19 lactobacillus combination no.8 3 billion cell capsule 3,000 mmu cells PO BID 07/20/19 omeprazole magnesium 20 mg tablet,delayed release 20 mg PO DAILY PRN 07/20/19 trimethoprim 100 mg tablet 100 mg PO Q12H 07/20/19 glimepiride 4 mg tablet 4 mg PO BID #180 tab 08/24/19 Cyanocobalamin (Vitamin B-12) [Vitamin B-12] 1,000 mcg PO DAILY 06/14/20 Acetaminophen [Tylenol] 1,000 mg PO Q8 06/30/20 Calcium Carbonate [Tums] 500 mg PO Q4H PRN PRN tab 06/30/20 Acetaminophen [Tylenol] 1,000 mg PO Q6H PRN tab 08/02/20 Menthol/Lanolin/Calamine/Znox [Calmoseptine Ointment] 1 applic TOPICAL DAILY tube 08/02/20 Mineral Oil/Petrolatum,White [Eucerin] 1 applic TOPICAL BID jar 08/02/20 Primary Care Physician: Pipe Quigley MD [Primary Care Provider] - Please follow up with your Primary Care Physician in: 1 week. Test Results: Test results from this visit will be discussed in further detail at your follow- up appointment, if applicable. Please Follow Up With: [facility] When: 2 weeks. Proposed Discharge Date: 08/10/20
--- NOTE | 2020-08-02 19:07 | PCM.DC.SUM ---
Discharge Date and Diagnosis - Problem List Patient Problems: Active and Suspected Problems (Last Reviewed 08/24/19 @ 12:[address] Jeremy Harrison MD) Debility (Acute) Infection of prosthetic right knee joint (Acute) Date of Admission: 06/30/20 Date of Discharge: 08/10/20 - Primary Discharge Diagnosis Acute Problems: Active Problems (Last Reviewed 08/24/19 @ 12:[address] Jeremy Harrison MD) Debility (Acute) Infection of prosthetic right knee joint (Acute) - Secondary Discharge Diagnosis Chronic Problems: Chronic Problems (Last Reviewed 08/24/19 @ 12:[address] Jeremy Harrison MD) Osteoarthritis of right knee (Chronic) Hypertension (Chronic) Hearing loss (Chronic) Osteoporosis (Chronic) Recurrent UTI (Chronic) Glaucoma (Chronic) Atrophic vaginitis (Chronic) GERD (gastroesophageal reflux disease) (Chronic) Diabetes (Chronic) Chronic UTI (urinary tract infection) (Chronic) Essential (primary) hypertension (Chronic) Diabetes type 2, uncontrolled (Chronic) Hospital Course and Treatment Imaging Results: 06/30/20 23:25 Diet: Consistent Carb - Calorie Controlled Food consistency:: Regular Liquid Consistency:: Regular/Thin Is pt able to select menu?: Yes How many daily calories?: 1800 calorie Labs (Last 48 Hours) 08/01/20 08/01/20 08/01/20 06:22 11:13 16:16 Vancomycin Trough POC Glucose 105 123 H 112 H 08/02/20 08/02/20 08/02/20 06:26 11:10 11:20 Vancomycin Trough 15.9 H POC Glucose 88 110 08/02/20 16:29 Vancomycin Trough POC Glucose 114 H Microbiology 07/31/20 13:40 Nasal Secretion SARS-CoV-2 Antigen (Rapid) - Final Operations: None Procedures: None Summary of Care Provided: The patient is a 74 year old Female with below past medical history hospitalized for right prosthetic knee joint infection, underwent right total knee removal with placement of cement spacer 06/28/20, admitted to TCU with debility, here for rehabilitation, strengthening, intravenous antibiotics, prior to discharge home with . Discharge home with , [facility] PT/OT. No durable medical equipment. Patient Problems: Active and Suspected Problems (Last Reviewed 08/24/19 @ 12:[address] Jeremy Harrison MD) Debility (Acute) Infection of prosthetic right knee joint (Acute) - Physical Exam Vitals/I&O's: Vital Signs Temp Pulse Resp BP Pulse Ox 97.2 F L 57 L 17 137/53 H 96 08/02/20 14:16 08/02/20 14:16 08/02/20 14:16 08/02/20 14:16 08/02/20 14:16 Oxygen Delivery Method Room Air Weight: 80.343 kg Body Mass Index (BMI) 30.7 Intake and Output for Last 24 Hours 07/31/20 08/01/20 08/02/20 23:59 23:59 23:59 Intake Total 1420 / 1420 1420 / 1420 1865 / 1865 Balance 1420 / 1420 1420 / 1420 1865 / 1865 Microbiology Past 72 Hours 07/31/20 13:40 Nasal Secretion SARS-CoV-2 Antigen (Rapid) - Final Laboratory Results 08/02/20 06:26: POC Glucose 88 08/02/20 11:10: POC Glucose 110 08/02/20 11:20: Vancomycin Trough 15.9 H 08/02/20 16:29: POC Glucose 114 H Current Medications Acetaminophen (Acetaminophen 500 Mg Tablet) 1,000 mg PO Q6H PRN PRN Reason: Pain Score 1-3 Last Admin: 07/31/20 10:35 Dose: 500 mg Documented by: Bisacodyl (Bisacodyl 10 Mg Suppository) 10 mg RECTAL DAILY PRN PRN Reason: Constipation Calamine/Phenol (Menthol/Lanolin/Calamine/Znox 113 Gm Tube) 1 applic TOPICAL DAILY [facility]; Protocol Last Admin: 08/02/20 06:38 Dose: 1 applicatio Documented by: Calcium Carbonate (Calcium Carbonate 500 Mg Tablet) 500 mg PO Q4H PRN PRN PRN Reason: HEARTBURN Last Admin: 07/22/20 21:27 Dose: 500 mg Documented by: Calcium/Vitamin D (Calcium Carb/Vitamin D 1 Tablet Tablet) 1 tablet PO BIDCM [facility] Last Admin: 08/02/20 17:59 Dose: 1 tablet Documented by: Cholecalciferol (Cholecalciferol (Vit D3) 1,000 Unit (25mcg)) 2,000 unit PO DAILY [facility] Last Admin: 08/02/20 06:35 Dose: 2,000 unit Documented by: Cyanocobalamin (Cyanocobalamin 500 Mcg Tablet) 1,000 mcg PO DAILY [facility] Last Admin: 08/02/20 06:36 Dose: 1,000 mcg Documented by: Glimepiride ([facility] 1 Mg Tablet) [facility] Last Admin: 08/02/20 17:59 Dose: 1 mg Documented by: Heparin Sodium (Beef Lung) (Heparin Pf Lock 10 Units/Ml 50 Units/5 Ml Syringe) 50 units IV UD PRN PRN Reason: PICC Line Heparin Flush Last Admin: 07/30/20 10:03 Dose: 50 units Documented by: Hydrochlorothiazide (Hydrochlorothiazide 25 Mg Tablet) 25 mg PO DAILY [facility] Last Admin: 08/02/20 06:36 Dose: 25 mg Documented by: Ceftriaxone Sodium 2 gm/ (Sodium Chloride) 50 mls @ 100 mls/hr IV Q24 [facility] Stop: 08/09/20 10:01 Last Infusion: 08/02/20 12:14 Dose: Infused Documented by: Sodium Chloride () 250 mls @ 15 mls/hr IV .[id number] PRN PRN Reason: Saline Flush Last Infusion: 08/02/20 01:55 Dose: 0 mls/hr Documented by: Sodium Chloride () 250 mls @ 15 mls/hr IV .[id number] PRN PRN Reason: Additional IVPB Infusion Last Infusion: 07/24/20 14:07 Dose: Infused Documented by: Vancomycin HCl 750 mg/ Sodium (Chloride) 265 mls @ 250 mls/hr IV Q12H [facility] Stop: 08/09/20 01:00 Last Infusion: 08/02/20 15:48 Dose: Infused Documented by: Lactobacillus Acidophilus (Lactobacillus Acidophilus) 1 tablet PO BID [facility] Last Admin: 08/02/20 17:59 Dose: 1 tablet Documented by: Lisinopril (Lisinopril 40 Mg Tablet) 40 mg PO DAILY [facility] Last Admin: 08/02/20 06:35 Dose: 40 mg Documented by: Magnesium Hydroxide (Magnesium Hydroxide 30 Ml Udc) 30 ml PO DAILY PRN PRN Reason: Constipation Melatonin (Melatonin 10 Mg Tablet) 10 mg PO QHS PRN PRN PRN Reason: INSOMNIA Multi-Ingredient Cream (Mineral Oil/Petrolatum,White Jar) 1 applic TOPICAL BID [facility]; Protocol Last Admin: 08/02/20 17:59 Dose: 1 applicatio Documented by: Oxycodone HCl (Oxycodone 5 Mg Tablet) 5 mg PO Q4H PRN PRN PRN Reason: Pain Score 6-10 Last Admin: 07/03/20 06:01 Dose: 5 mg Documented by: Pantoprazole Sodium (Pantoprazole Sodium 20 Mg Tablet) 20 mg PO DAILY PRN PRN Reason: HEARTBURN Last Admin: 07/17/20 05:58 Dose: 20 mg Documented by: Polyethylene Glycol (Polyethylene Glycol 3350 17 Gm Packet) 17 gm PO DAILY [facility] Last Admin: 08/02/20 06:37 Dose: 17 gm Documented by: Senna/Docusate Sodium (Senna/Docusate Sodium 1 Tablet) 1 tablet PO BID [facility] Last Admin: 08/02/20 18:00 Dose: Not Given Documented by: Sodium Chloride (0.9% Saline Lock 10 Ml Syringe) 10 - 40 ml IV UD PRN PRN Reason: Open End PICC Flush Last Admin: 08/02/20 13:09 Dose: 40 ml Documented by: Sodium Chloride (0.9 % Nacl (Sterile) Posiflush 10 Ml) 10 - 40 ml IV UD PRN PRN Reason: Port access or dressing change Sodium Chloride (0.9% Saline Lock 10 Ml Syringe) 10 - 40 ml IV UD PRN PRN Reason: SALINE FLUSH Tramadol HCl (Tramadol 50 Mg Tablet) 50 mg PO Q6H PRN PRN PRN Reason: Pain Score 4-5 Last Admin: 07/10/20 06:27 Dose: 50 mg Documented by: Trimethoprim (Trimethoprim 100 Mg Tablet) 100 mg PO DAILY [facility] Last Admin: 08/02/20 06:35 Dose: 100 mg Documented by: Discharge Diet: No Restrictions Discharge Activity: Return to Normal Activity, May Shower, Use Walker Weight Bearing Status: Toe touch weight bearing Keep extremity elevated above heart level: Right Leg Call your doctor if you observe: Fever of 101 or Higher, Inability to urinate, Inability to have a bowel movement, Shortness of breath, Chest pain, Uncontrolled pain Home Medications: Medications to take at Discharge hydrochlorothiazide 25 mg tablet 25 mg PO DAILY #30 tab 06/25/19 lisinopril 40 mg tablet 40 mg PO DAILY #90 tab 06/25/19 calcium carbonate 500 mg (1,250 mg)-vitamin D3 125 unit tablet 1 tab PO BID 07/20/19 cholecalciferol (vitamin D3) 50 mcg (2,000 unit) capsule 2,000 unit PO DAILY 07/20/19 lactobacillus combination no.8 3 billion cell capsule 3,000 mmu cells PO BID 07/20/19 omeprazole magnesium 20 mg tablet,delayed release 20 mg PO DAILY PRN 07/20/19 trimethoprim 100 mg tablet 100 mg PO Q12H 07/20/19 glimepiride 4 mg tablet 4 mg PO BID #180 tab 08/24/19 Cyanocobalamin (Vitamin B-12) [Vitamin B-12] 1,000 mcg PO DAILY 06/14/20 Acetaminophen [Tylenol] 1,000 mg PO Q8 06/30/20 Calcium Carbonate [Tums] 500 mg PO Q4H PRN PRN tab 06/30/20 Acetaminophen [Tylenol] 1,000 mg PO Q6H PRN tab 08/02/20 Menthol/Lanolin/Calamine/Znox [Calmoseptine Ointment] 1 applic TOPICAL DAILY tube 08/02/20 Mineral Oil/Petrolatum,White [Eucerin] 1 applic TOPICAL BID jar 08/02/20 Primary Care Physician: Pipe Quigley MD [Primary Care Provider] - Please follow up with your Primary Care Physician in: 1 week. Please Follow Up With: [facility] When: 2 weeks. Disposition: Home Minutes spent on discharge:: 30 Patient Condition:: Stable Medical Necessity - Tobacco Use Smoking Status: Never smoker Tobacco Use: Non-smoker Meaningful Use Info Meaningful Use Diagnoses (Choose all that apply): None applicable
[2020-08-02] MEDS: FLUCONAZOLE 150 MG TABLET PO (20:03)
[2020-08-02] MEDS: Acetaminophen 500 MG Tablet 1000 MG PO (22:19)
[2020-08-03] MEDS: 0.9% Saline Lock 10 ML Syringe IV ×3 (00:50→10:20)
[2020-08-03 02:40] VITALS: BP 148/68; PULSE 62; RESP 16; TEMP 36.7; O2SAT 95
[2020-08-03] MEDS: hydroCHLOROthiazide 25 MG Tablet PO (06:12)
[2020-08-03] MEDS: Trimethoprim 100 MG Tablet PO (06:12)
[2020-08-03] MEDS: Polyethylene Glycol 3350 17 GM PACKET PO (06:12)
[2020-08-03] MEDS: Lisinopril 40 MG Tablet PO (06:12)
[2020-08-03] MEDS: Cyanocobalamin 500 MCG Tablet 1000 MCG PO (06:12)
[2020-08-03] MEDS: Menthol/Lanolin/Calamine/Znox 113 GM Tube 1 APPLIC TOPICAL (06:14)
[2020-08-03 06:26] LABS: Bedside Glucose 92 mg/dL (70-110)
[2020-08-03] MEDS: Glimepiride 1 MG Tablet PO ×2 (07:52→16:45)
[2020-08-03] MEDS: Calcium Carb/Vitamin D 1 TABLET Tablet PO ×2 (07:52→16:45)
[2020-08-03 10:41] LABS: Bedside Glucose 206 mg/dL (70-110)
[2020-08-03 14:18] VITALS: BP 150/56; PULSE 55; RESP 16; TEMP 37.1; O2SAT 97
[2020-08-03 16:40] LABS: Bedside Glucose 139 mg/dL (70-110)
[2020-08-04] MEDS: 0.9% Saline Lock 10 ML Syringe IV (00:28)
[2020-08-04 05:49] VITALS: BP 150/59; PULSE 62; RESP 16; TEMP 36.6; O2SAT 95
[2020-08-04] MEDS: Lisinopril 40 MG Tablet PO (05:53)
[2020-08-04] MEDS: hydroCHLOROthiazide 25 MG Tablet PO (05:53)
[2020-08-04] MEDS: Trimethoprim 100 MG Tablet PO (05:53)
[2020-08-04] MEDS: Cyanocobalamin 500 MCG Tablet 1000 MCG PO (05:53)
[2020-08-04] MEDS: Polyethylene Glycol 3350 17 GM PACKET PO (05:54)
[2020-08-04] MEDS: Menthol/Lanolin/Calamine/Znox 113 GM Tube 1 APPLIC TOPICAL (05:59)
[2020-08-04 06:26] LABS: Bedside Glucose 99 mg/dL (70-110)
[2020-08-04] MEDS: Glimepiride 1 MG Tablet PO ×2 (08:03→16:28)
[2020-08-04] MEDS: Calcium Carb/Vitamin D 1 TABLET Tablet PO ×2 (08:03→16:28)
[2020-08-04] MEDS: 0.9 % NaCl (Sterile) Posiflush 10 mL IV (11:04)
[2020-08-04 11:11] LABS: Bedside Glucose 145 mg/dL (70-110)
[2020-08-04 14:14] VITALS: BP 133/65; PULSE 55; RESP 16; TEMP 36.2; O2SAT 97
[2020-08-04 16:51] LABS: Bedside Glucose 79 mg/dL (70-110)
[2020-08-05 06:10] LABS: Bedside Glucose 84 mg/dL (70-110)
[2020-08-05 06:17] VITALS: BP 151/63; PULSE 97; RESP 18; TEMP 36; O2SAT 96
[2020-08-05] MEDS: Trimethoprim 100 MG Tablet PO (06:22)
[2020-08-05] MEDS: Cyanocobalamin 500 MCG Tablet 1000 MCG PO (06:22)
[2020-08-05] MEDS: Polyethylene Glycol 3350 17 GM PACKET PO (06:22)
[2020-08-05] MEDS: hydroCHLOROthiazide 25 MG Tablet PO (06:22)
[2020-08-05] MEDS: Lisinopril 40 MG Tablet PO (06:22)
[2020-08-05] MEDS: Menthol/Lanolin/Calamine/Znox 113 GM Tube 1 APPLIC TOPICAL (06:25)
[2020-08-05] MEDS: Calcium Carb/Vitamin D 1 TABLET Tablet PO ×2 (07:58→17:09)
[2020-08-05] MEDS: Glimepiride 1 MG Tablet PO ×2 (07:58→17:09)
[2020-08-05 08:02] LABS: Erythrocyte Sedimentation Rate 36 mm/hr (0-30)
[2020-08-05 10:56] LABS: Bedside Glucose 155 mg/dL (70-110)
[2020-08-05] MEDS: 0.9% Saline Lock 10 ML Syringe IV ×2 (11:37→12:52)
[2020-08-05 14:06] VITALS: BP 133/51; PULSE 58; RESP 16; TEMP 36.9; O2SAT 95
[2020-08-05 16:25] LABS: Bedside Glucose 147 mg/dL (70-110)
[2020-08-05] MEDS: Senna/Docusate Sodium 1 Tablet PO (17:08)
[2020-08-05 20:02] VITALS: PULSE 68; RESP 16; O2SAT 96
[2020-08-06] MEDS: 0.9% Saline Lock 10 ML Syringe IV ×3 (00:07→23:51)
[2020-08-06 04:00] VITALS: BP 137/45; PULSE 61; RESP 16; TEMP 36.5; O2SAT 95
[2020-08-06] MEDS: Polyethylene Glycol 3350 17 GM PACKET PO (06:11)
[2020-08-06] MEDS: Cyanocobalamin 500 MCG Tablet 1000 MCG PO (06:13)
[2020-08-06] MEDS: Trimethoprim 100 MG Tablet PO (06:13)
[2020-08-06] MEDS: Lisinopril 40 MG Tablet PO (06:13)
[2020-08-06] MEDS: hydroCHLOROthiazide 25 MG Tablet PO (06:13)
[2020-08-06] MEDS: Menthol/Lanolin/Calamine/Znox 113 GM Tube 1 APPLIC TOPICAL (06:16)
[2020-08-06 06:21] LABS: Bedside Glucose 100 mg/dL (70-110)
[2020-08-06] MEDS: Glimepiride 1 MG Tablet PO ×2 (07:58→17:13)
[2020-08-06] MEDS: Calcium Carb/Vitamin D 1 TABLET Tablet PO ×2 (07:58→17:13)
[2020-08-06 10:56] LABS: Bedside Glucose 157 mg/dL (70-110)
[2020-08-06 11:10] LABS: Absolute Lymphocyte Count 2.44 X10^3/uL (0.83-4.51); Absolute Neutrophil Count 5.1 X10^3/uL (2.0-7.7); Basophil# 0.07 X10^3/uL; Basophil% 0.8 % (0-1); Eosinophil# 0.23 X10^3/uL; Eosinophils% 2.7 % (0-5); Hematocrit 33.1 % (37-47); Hemoglobin 10.3 g/dL (12.0-15.0); Lymphocyte # 2.44 X10^3/ul (4.0); Lymphocyte % 28.6 % (19-41); Mean Corp Hgb Conc 31.1 g/dL (32-36); Mean Corpuscular Hgb 27.1 pg (27.0-32.0); Mean Corpuscular Volume 87.1 fL (81-99); Mean Platelet Vol. 9.6 fl (6.2-12.0); Monocyte# 0.67 X10^3/uL; Monocyte% 7.9 % (0-10); NRBC Flagged by Analyzer 0 % (0-5); Neutrophil # 5.08 X10^3/uL (2.7-7.7); Neutrophil % 59.6 % (47-70); Platelet Count 250 K/mm3 (150-450); RBC Distribution Width CV 13.6 % (11.6-14.6); RBC Distribution Width SD 43.5 fl (35.1-43.9); White Blood Count 8.5 K/mm3 (4.4-11.0)
[2020-08-06 11:23] LABS: Anion Gap 6 (5-15); BUN 15 mg/dL (7-18); BUN/Creat Ratio 13.2 RATIO (10-20); Calcium,Total 9.4 mg/dL (8.5-10.1); Chloride 104 mmol/L (98-107); Creatinine, Serum 1.14 mg/dL (0.55-1.02); EST Glomerular Filtration Rate 49 mL/min (>60); Est Glom Filt Rate - Afr Amer 60 mL/min (>60); Estimated Creatinine Clearance 39.92 ml/min; Glucose 140 mg/dL (74-106); Potassium 3.9 mmol/L (3.5-5.1); Sodium Level 139 mmol/L (136-145)
[2020-08-06 11:39] VITALS: PULSE 67; RESP 16; O2SAT 96
[2020-08-06 13:06] VITALS: BP 140/58; PULSE 58; RESP 14; TEMP 36.9; O2SAT 96
[2020-08-06 16:35] LABS: Bedside Glucose 211 mg/dL (70-110)
[2020-08-06] MEDS: Senna/Docusate Sodium 1 Tablet PO (17:12)
[2020-08-07 04:00] VITALS: BP 139/53; PULSE 60; RESP 16; TEMP 36.9; O2SAT 94
[2020-08-07] MEDS: Trimethoprim 100 MG Tablet PO (06:12)
[2020-08-07] MEDS: Lisinopril 40 MG Tablet PO (06:12)
[2020-08-07] MEDS: Cyanocobalamin 500 MCG Tablet 1000 MCG PO (06:12)
[2020-08-07] MEDS: Polyethylene Glycol 3350 17 GM PACKET PO (06:12)
[2020-08-07] MEDS: hydroCHLOROthiazide 25 MG Tablet PO (06:12)
[2020-08-07] MEDS: Menthol/Lanolin/Calamine/Znox 113 GM Tube 1 APPLIC TOPICAL (06:15)
[2020-08-07 06:20] LABS: Bedside Glucose 104 mg/dL (70-110)
[2020-08-07] MEDS: Calcium Carb/Vitamin D 1 TABLET Tablet PO ×2 (08:24→17:14)
[2020-08-07] MEDS: Glimepiride 1 MG Tablet PO ×2 (08:24→17:14)
[2020-08-07] MEDS: 0.9% Saline Lock 10 ML Syringe IV ×4 (09:33→12:40)
[2020-08-07 11:10] LABS: Bedside Glucose 164 mg/dL (70-110)
[2020-08-07 12:12] VITALS: BP 126/51; PULSE 51; RESP 18; TEMP 36.6; O2SAT 97
[2020-08-07 16:25] LABS: Bedside Glucose 215 mg/dL (70-110)
[2020-08-07] MEDS: Senna/Docusate Sodium 1 Tablet PO (17:14)
[2020-08-08 04:00] VITALS: BP 151/67; PULSE 59; RESP 18; TEMP 36.9; O2SAT 97
[2020-08-08] MEDS: Cyanocobalamin 500 MCG Tablet 1000 MCG PO (06:11)
[2020-08-08] MEDS: Lisinopril 40 MG Tablet PO (06:11)
[2020-08-08] MEDS: Polyethylene Glycol 3350 17 GM PACKET PO (06:11)
[2020-08-08] MEDS: Trimethoprim 100 MG Tablet PO (06:11)
[2020-08-08] MEDS: hydroCHLOROthiazide 25 MG Tablet PO (06:12)
[2020-08-08] MEDS: Menthol/Lanolin/Calamine/Znox 113 GM Tube 1 APPLIC TOPICAL (06:12)
[2020-08-08] MEDS: Senna/Docusate Sodium 1 Tablet PO ×2 (06:12→17:08)
[2020-08-08 06:21] LABS: Bedside Glucose 84 mg/dL (70-110)
[2020-08-08] MEDS: Calcium Carb/Vitamin D 1 TABLET Tablet PO ×2 (08:24→17:08)
[2020-08-08] MEDS: 0.9% Saline Lock 10 ML Syringe IV ×3 (09:11→12:44)
[2020-08-08] MEDS: Glimepiride 1 MG Tablet PO ×2 (09:24→17:08)
[2020-08-08 10:55] LABS: Bedside Glucose 167 mg/dL (70-110)
[2020-08-08 13:16] VITALS: BP 142/54; PULSE 58; RESP 16; TEMP 36.4; O2SAT 94
--- NOTE | 2020-08-08 15:13 | NURSING ---
pt stated she updates every day.
[2020-08-08 16:15] LABS: Bedside Glucose 158 mg/dL (70-110)
[2020-08-08 20:25] VITALS: PULSE 62; RESP 16; O2SAT 98
[2020-08-09] MEDS: 0.9% Saline Lock 10 ML Syringe IV ×3 (00:02→09:37)
[2020-08-09 05:58] VITALS: BP 160/71; PULSE 68; RESP 16; TEMP 37; O2SAT 96
[2020-08-09] MEDS: Cyanocobalamin 500 MCG Tablet 1000 MCG PO (06:00)
[2020-08-09] MEDS: Polyethylene Glycol 3350 17 GM PACKET PO (06:01)
[2020-08-09] MEDS: Senna/Docusate Sodium 1 Tablet PO ×2 (06:01→18:07)
[2020-08-09] MEDS: hydroCHLOROthiazide 25 MG Tablet PO (06:01)
[2020-08-09] MEDS: Trimethoprim 100 MG Tablet PO (06:01)
[2020-08-09] MEDS: Lisinopril 40 MG Tablet PO (06:01)
[2020-08-09] MEDS: Menthol/Lanolin/Calamine/Znox 113 GM Tube 1 APPLIC TOPICAL (06:02)
[2020-08-09 06:46] LABS: Bedside Glucose 97 mg/dL (70-110)
[2020-08-09] MEDS: Glimepiride 1 MG Tablet PO ×2 (08:19→18:08)
[2020-08-09] MEDS: Calcium Carb/Vitamin D 1 TABLET Tablet PO ×2 (08:19→18:07)
[2020-08-09 10:51] LABS: Bedside Glucose 170 mg/dL (70-110)
[2020-08-09 12:45] VITALS: PULSE 62; RESP 18; O2SAT 98
--- NOTE | 2020-08-09 13:32 | NURSING ---
removed PICC line 43cm tip intact from LT upper arm. pt tolerated well. pt resting in bed supine x30 minutes. Aware to notify staff of any SOB, CP, ect. call light in reach. denies needs. bed rest will be up at 1400
--- NOTE | 2020-08-09 15:05 | NURSING ---
PT STATES SHE UP DATES FAMILY
[2020-08-09 16:55] LABS: Bedside Glucose 177 mg/dL (70-110)
[2020-08-09 16:58] VITALS: BP 135/69; PULSE 51; RESP 16; TEMP 36.2; O2SAT 99
[2020-08-10 04:00] VITALS: BP 143/80; PULSE 62; RESP 18; TEMP 36.6; O2SAT 97
[2020-08-10] MEDS: Senna/Docusate Sodium 1 Tablet PO (05:38)
[2020-08-10] MEDS: hydroCHLOROthiazide 25 MG Tablet PO (05:38)
[2020-08-10] MEDS: Trimethoprim 100 MG Tablet PO (05:38)
[2020-08-10] MEDS: Lisinopril 40 MG Tablet PO (05:38)
[2020-08-10] MEDS: Cyanocobalamin 500 MCG Tablet 1000 MCG PO (05:38)
[2020-08-10] MEDS: Polyethylene Glycol 3350 17 GM PACKET PO (05:38)
[2020-08-10] MEDS: Menthol/Lanolin/Calamine/Znox 113 GM Tube 1 APPLIC TOPICAL (05:41)
[2020-08-10 06:15] LABS: Bedside Glucose 132 mg/dL (70-110)
[2020-08-10] MEDS: Calcium Carb/Vitamin D 1 TABLET Tablet PO (08:09)
[2020-08-10] MEDS: Glimepiride 1 MG Tablet PO (08:09)
[2020-08-10 10:00] VITALS: PULSE 60; RESP 16; O2SAT 94
[2020-08-10 10:24] VITALS: BP 127/53; PULSE 60; RESP 16; TEMP 37.2; O2SAT 94
== END 2020-08-10 10:10 | disposition home or self-care (01) | DRG 950 ==
PROVIDERS: Internal Medicine Infectious Disease; Admitting Provider Family Medicine Geriatric Medicine; PCP Family Medicine; Visit Provider Family Medicine Geriatric Medicine
DX: T84.53XD Infection and inflammatory reaction due to internal right knee prosthesis, subsequent encounter (principal); Y79.2 Prosthetic and other implants, materials and accessory orthopedic devices associated with adverse incidents; K21.9 Gastro-esophageal reflux disease without esophagitis; Y83.1 Surgical operation with implant of artificial internal device as the cause of abnormal reaction of the patient, or of later complication, without mention of misadventure at the time of the procedure; I10 Essential (primary) hypertension; E11.9 Type 2 diabetes mellitus without complications; Z87.440 Personal history of urinary (tract) infections; E55.9 Vitamin D deficiency, unspecified
CPT/HCPCS: 36415; 36569; 80048; 80202; 81001; 82962; 85025; 85652; 87086; 87426; 97110; 97116; 97162; 97165; 97530; 97535; 97802; J2997; J7050; A4216; J0696

== ENCOUNTER → 2020-08-14 09:23 | Outpatient (CLI) | payer MEDICARE, OTHER, SELFPAY ==
[2020-06-30 18:30] VITALS: BMI 30.7
[2020-08-14 11:20] LABS: Erythrocyte Sedimentation Rate 45 mm/hr (0-30)
[2020-08-14 11:22] LABS: Basophil# 0.07 X10^3/uL; Basophil% 0.8 % (0-1); Eosinophils% 3.2 % (0-5); Hematocrit 36.4 % (37-47); Hemoglobin 11.2 g/dL (12.0-15.0); Lymphocyte % 34.6 % (19-41); Mean Corp Hgb Conc 30.8 g/dL (32-36); Mean Corpuscular Hgb 27.3 pg (27.0-32.0); Mean Corpuscular Volume 88.8 fL (81-99); Mean Platelet Vol. 10.3 fl (6.2-12.0); Monocyte# 0.65 X10^3/uL; NRBC Flagged by Analyzer 0 % (0-5); Neutrophil % 54.1 % (47-70); Platelet Count 351 K/mm3 (150-450); RBC Distribution Width CV 13.7 % (11.6-14.6); RBC Distribution Width SD 44.4 fl (35.1-43.9); White Blood Count 9.3 K/mm3 (4.4-11.0)
== END ==
PROVIDERS: PCP Family Medicine; Referring Provider Specialist; Visit Provider Specialist
DX: T84.53XD Infection and inflammatory reaction due to internal right knee prosthesis, subsequent encounter (principal)
CPT/HCPCS: 36415; 85025; 85652; 86140

== ENCOUNTER 2020-10-04 07:07 | Inpatient (IN) | payer MEDICARE, OTHER, SELFPAY ==
[2020-06-30 18:30] VITALS: BMI 30.7
--- NOTE | 2020-08-25 13:10 | PCM.HP.BLA ---
History and Physical History and Physical [facility] Patient Name: Reva Warner : 1945 From: LEIDA PEÑALOZA PA-C DATE OF SURGERY: 09/13/2020 SCHEDULED PROCEDURE: right knee removal antibiotic spacer to a total knee arthroplasty HISTORY OF PRESENT ILLNESS: Preoperative history and physical exam was performed on August 25, 2020. This is a 75-year-old female who has had previous history of a right knee arthroplasty in [address] Kelley and [facility]. Patient states she had no postoperative surgeries after her initial knee replacement. She did have ongoing pain for the past 3 years. Infectious workup was obtained with elevated ESR and CRP as well as positive Synovasure on aspiration. Patient underwent removal total knee arthroplasty with placement of an antibiotic spacer on June 28, 2020. Patient was placed on 6 weeks of IV antibiotics. She continues to have some pain in the knee. She has had lab work once finishing the antibiotics. Overall she does feel better with the right knee since having the antibiotic spacer. Patient currently denies any chest pain, shortness of breath, fevers chills. Patient has medical history pertinent for type 2 diabetes mellitus, hypertension, previous urinary tract infections. She is currently on daily antibiotic per infectious disease with regards to the UTIs. After discussion with Dr. Oren Casillas, the patient does wish to proceed with removal antibiotic spacer to a total knee arthroplasty. REVIEW OF SYSTEMS: ROS: Const: Reports weight change, but denies change in appetite and fever. CV: Reports irregular heartbeat, but denies chest pain and heart murmur. Resp: Denies cough, pneumonia, shortness of breath, tuberculosis and wheezing. GI: Reports constipation and heartburn, but denies diarrhea, nausea, rectal itching, bloody stools and vomiting. : Denies incontinence. Musculo: Reports gait disturbance, trouble walking and weakness, but denies pain. Skin: Denies Raynaud's, history of shingles and tattoo. Neuro: Reports ambulatory dysfunction but denies dizziness, numbness/tingling and tremor. Psych: Denies anxiety, insomnia and stress. Mau/Lymph: Denies anemia, bleeding/bruising tendency and past transfusion. Reviewed and updated. PAST MEDICAL HISTORY: Advance Care Plan: Other Directive, POA Effective Date: 05/04/2020 Other Directive, LIVING WILL Effective Date: 05/04/2020 PMH: Medical Problems: Arthritis, Diabetes, Hard of Hearing, High Blood Pressure, Osteoporosis Repeated UTI Infection - (05/19/2020) FINISHED February Accidents: Other - (1967) fall on back locked Surgical Hx: Gallbladder - (1974) Dr. Tripathi Hysterectomy - (1979) Dr. Bridges Tonsillectomy - (1949) Knee Arthroscopy LT Knee Replacement RT - (2016) Bal Idheasion - (1969) @[facility] Tubes Tied - (1975) Two FT Surgeries - @[facility] - (2002) LT KNEE RT TKR Removed W/Antibitoic Spacer Placed - (06/28/2020) SAW @ [facility] Cataracts Surgery - LT-2011 RT-2012 Anesthesia Complications: None Assistive Devices: Glasses, Hearing Aid, Cane, Brace, Walker Reviewed and updated. SOCIAL HISTORY: SH: Marital: .Occupation: Retired.Work Status: Retired.Hand Dominance: Right-handed. Personal Habits: Cigarette Use: Never Smoked Cigarettes.Smokeless Tobacco: Never Used Smokeless Tobacco.E-Cigarette Use: Never used.Alcohol: Denies use.Drug Use: Denies Use.Enjoy Exercising: Daily. Reviewed, no changes. VITALS: Ht: 65 Wt: 177lb Wt k.287 BMI: 29.5 BP: 124/76 Pulse: 78 Resp: 14 T: 96.3 T: 35.7C Pain Level: 2 ALLERGIES: Sulfa Zoloft Mavik Benicar Zocor Elt Nohemi Dupree Ciprofloxacin - hospitalized for 2 weeks due to this medication Metformin Attale Teauin Betaxolol Doxazosin MEDICATIONS: Ferrous Sulfate 325 (65 Fe) MG take 1 tablet by mouth twice a day, Folic Acid 1 mg 1 by mouth every day, Glimepiride 4 mg 1 po qd, Hydrochlorothiazide 25 mg 1 po qd, Lisinopril 40 mg 1 po qd, Trimethoprim 100 mg 1 po qd, Triamcinolone Acetonide 0.1 % apply to spots on lower leg twice A day, Fish Oil 1200 mg 1 po bid, Oscal 500/200 D-3 500-200 MG-Unit 1 po qd, Probiotic 1 by mouth every day, Vitamin D3 50 mcg (2000 Ut) 1 po qd, Prilosec OTC prn, Vitamin B12 TR 1000 mcg 1 po qd, Tylenol 325 mg 2 po 3 times daily as needed for pain, Azo Cranberry 250-30 mg 1 po qd, Acetaminophen Congestion And Pain 5-325 mg 325 by mouth twice daily, Brimonidine Tartrate 0.15 % twice daily, Vitamin D3 Gummies Adult 25 mcg (1000 Ut) takes 2 A day, Cranberry 400 mg take by mouth, Vitamin B-12 1000 mcg/15ML once A day, Estrace 0.1 mg/gm twice weekly for recurrent UTI, Glimepiride 4 mg take one tablet by mouth twice daily, Fiasp 100 Unit/ML take 16 units AT breakfast, 14 units AT lunch and 20 units AT dinner, Acidophilus Lactobacillus take by mouth, Methenamine Hippurate 1 gm 1 by mouth twice a day, [place] 3 fish oil 500 mg cap take one tablet 2 times A daily, Omeprazole Magnesium take by mouth as needed, Trimethoprim 100 mg take one tablet by mouth every day AT bedtime, Vitamin E 400 Unit 1/day, Calcium Carbonate 500 mg 1 tab PO bid, Cholecalciferol 50 mcg 2000 units PO daily, Lactobacillus 3000 mmu cells PO bid, Cyanocobalamin 1000 mcg/ML PO daily PRE-OP EXAM: General appearance:NORMAL Other: Eyes: Conjunctivae and lids: NORMAL Pupils: ERR Ears, Nose, Mouth, and Throat: NORMAL Other: Inspection of lips, teeth and gums: NORMAL Other: Neck: Examination of neck: no masses noted. Respiratory: Assessment of respiratory effort: NORMAL Other: Auscultation of lungs: clear to auscultation no wheezes, rhonchi or rales. Cardiovascular: Auscultation of heart: regular rate and rhythm, no murmurs, gallops or rubs. Exam of carotid arteries: NORMAL Other: Gastrointestinal: Exam of abdomen: soft, nontender, nondistended bowel sounds present. PHYSICAL EXAMINATION: Patient does walk with a limping gait. Previous incision is well healed. Range of motion of the right knee 0 of extension to 70 flexion. Sensation intact to light touch. Neurovascularly intact. IMAGING STUDIES: Previous x-rays of the right knee reveal stable alignment articulating antibiotic spacer with well fixed implants. IMPRESSION: 1. Right knee antibiotic spacer 2. Type 2 diabetes mellitus 3. Hypertension 4. Previous urinary tract infections 5. Osteoporosis 6. Gastroesophageal reflux disease PLAN: Dr. Oren Casillas did discuss and review with the patient all treatment options including surgical versus nonsurgical options. Patient does wish to proceed with the above-stated procedure. Potential risks, benefits, and complications of the procedure were discussed in detail including but not limited to , infection, nerve and blood vessel damage, persistent pain, numbness, tingling, paresthesias, blood clot, pulmonary embolism, and requirement for possible further surgery. The patient expressed full understanding and has no further questions for the doctor. Patient does agree to proceed with the above-stated procedure and has signed the surgery consent form. We discussed the current risks associated with COVID 19. This does include the risk of exposure while in the hospital. Patient was reassured local hospitals have low infection rates and are taking all necessary precautions to avoid exposure to patients. In addition, we discussed strategies that can be used to help limit exposure including those that limit the patient's time in the hospital. Also using strategies to limit the patient's need for continued inpatient services after being discharged from the hospital. Patient was notified that we will need to comply with any screening or testing the hospital wishes to perform or that surgery may be delayed for any positive results. This dictation was created using voice recognition software. Phonetic and/or grammatical errors may exist. ___ I have re-examined the patient. There are no clinical changes since date of exam. ___ See progress notes for changes. ___ Dictated on admission Date: Time: Signature:
[2020-08-28 11:40] LABS: Absolute Lymphocyte Count 3.22 X10^3/uL (0.83-4.51); Absolute Neutrophil Count 5.2 X10^3/uL (2.0-7.7); Basophil# 0.04 X10^3/uL; Basophil% 0.4 % (0-1); Eosinophil# 0.27 X10^3/uL; Eosinophils% 2.9 % (0-5); Erythrocyte Sedimentation Rate 23 mm/hr (0-30); Hematocrit 37.4 % (37-47); Hemoglobin 11.7 g/dL (12.0-15.0); Lymphocyte # 3.22 X10^3/ul (4.0); Mean Corp Hgb Conc 31.3 g/dL (32-36); Mean Corpuscular Hgb 27.3 pg (27.0-32.0); Mean Corpuscular Volume 87.2 fL (81-99); Mean Platelet Vol. 10.3 fl (6.2-12.0); Monocyte# 0.64 X10^3/uL; Monocyte% 6.8 % (0-10); NRBC Flagged by Analyzer 0 % (0-5); Neutrophil # 5.24 X10^3/uL (2.7-7.7); Neutrophil % 55.4 % (47-70); Platelet Count 250 K/mm3 (150-450); RBC Distribution Width CV 14.3 % (11.6-14.6); RBC Distribution Width SD 44.7 fl (35.1-43.9); Red Blood Count 4.29 M/mm3 (4.2-5.4); White Blood Count 9.5 K/mm3 (4.4-11.0)
[2020-08-28 11:53] LABS: Hemoglobin A1c 6.4 % (3.8-5.6)
[2020-08-28 12:08] LABS: Anion Gap 7 (5-15); BUN 23 mg/dL (7-18); BUN/Creat Ratio 19.2 RATIO (10-20); Calcium,Total 9.5 mg/dL (8.5-10.1); Chloride 101 mmol/L (98-107); EST Glomerular Filtration Rate 47 mL/min (>60); Est Glom Filt Rate - Afr Amer 56 mL/min (>60); Glucose 148 mg/dL (74-106); Sodium Level 135 mmol/L (136-145)
[2020-08-30 10:56] LABS: Magnesium 2.1 mg/dL (1.6-2.6)
--- NOTE | 2020-09-28 12:23 | PCM.HP.BLA ---
History and Physical History and Physical [facility] Patient Name: Reva Warner : 1945 From: LEIDA PEÑALOZA PA-C DATE OF SURGERY: 10/04/2020 SCHEDULED PROCEDURE: right knee removal antibiotic spacer to a right total knee arthroplasty HISTORY OF PRESENT ILLNESS: Preoperative history and physical exam was performed on September 27, 2020. This is a 75-year-old female who had a previous right total knee arthroplasty in [address] Kelley in [facility]. Patient denies having any postoperative complications. She was scheduled to undergo this procedure on September 13, 2020 but was canceled from orthopedic standpoint. Patient underwent antibiotic spacer on June 28, 2020. She had infectious workup at that time with elevated ESR and CRP as well as a positive Synovasure on aspiration. She did proceed with 6 weeks of IV antibiotics. She has been working on range of motion and exercises on her own. She has a medical history pertinent for type 2 diabetes mellitus, hypertension, and previous urinary tract infections in which she is on suppressive antibiotics. After discussion with Dr. Oren Casillas, the patient does wish to proceed with a right knee removal antibiotic spacer to a right total knee arthroplasty. She currently denies any chest pain, shortness of breath, fevers chills, recent infections. Clearance will be obtained with the primary care physician Dr. Quigley. REVIEW OF SYSTEMS: ROS: Const: Reports weight change, but denies change in appetite and fever. CV: Reports irregular heartbeat, but denies chest pain and heart murmur. Resp: Denies cough, pneumonia, shortness of breath, tuberculosis and wheezing. GI: Reports constipation and heartburn, but denies diarrhea, nausea, rectal itching, bloody stools and vomiting. : Denies incontinence. Musculo: Reports gait disturbance, trouble walking and weakness, but denies pain. Skin: Denies Raynaud's, history of shingles and tattoo. Neuro: Reports ambulatory dysfunction but denies dizziness, numbness/tingling and tremor. Psych: Denies anxiety, insomnia and stress. Mau/Lymph: Denies anemia, bleeding/bruising tendency and past transfusion. Reviewed, no changes. PAST MEDICAL HISTORY: Advance Care Plan: Other Directive, POA Effective Date: 05/04/2020 Other Directive, LIVING WILL Effective Date: 05/04/2020 PMH: Medical Problems: Arthritis, Diabetes, Hard of Hearing, High Blood Pressure, Osteoporosis Repeated UTI Infection - (05/19/2020) FINISHED February Accidents: Other - (1967) fall on back locked Surgical Hx: Gallbladder - (1974) Dr. Tripathi Hysterectomy - (1979) Dr. Bridges Tonsillectomy - (1949) Knee Arthroscopy LT Knee Replacement RT - (2016) Bal Idheasion - (1969) @[facility] Tubes Tied - (1975) Torn Cartlage - (2002) LT KNEE RT TKR Removed W/Antibitoic Spacer Placed - (06/28/2020) SAW @ [facility] Cataracts Surgery - LT-2011 RT-2013 LT Foot Anesthesia Complications: None Assistive Devices: Glasses, Hearing Aid, Cane, Brace, Walker Reviewed and updated. SOCIAL HISTORY: SH: Marital: .Occupation: Retired.Work Status: Retired.Hand Dominance: Right-handed. Personal Habits: Cigarette Use: Never Smoked Cigarettes.Smokeless Tobacco: Never Used Smokeless Tobacco.E-Cigarette Use: Never used.Alcohol: Denies use.Drug Use: Denies Use.Enjoy Exercising: Daily. Reviewed, no changes. VITALS: Ht: 64 Wt: 181lb Wt k.102 BMI: 31.1 BP: 118/72 Pulse: 72 Resp: 14 T: 94.4 T: 34.7C Pain Level: 0 ALLERGIES: Sulfa Zoloft Mavik Benicar Zocor Carlos Lynn - hospitalized for 2 weeks due to this medication Metformin Attale Teauin Betaxolol Doxazosin MEDICATIONS: Hydrochlorothiazide 25 mg 1 po qd, Lisinopril 40 mg 1 po qd, Trimethoprim 100 mg 1 po qd, Triamcinolone Acetonide 0.1 % apply to spots on lower leg twice A day, Fish Oil 1200 mg 1 po bid, Oscal 500/200 D-3 500-200 MG-Unit 1 po qd, Probiotic 1 by mouth every day, Prilosec OTC prn, Tylenol 325 mg 2 po 3 times daily as needed for pain, Cranberry 400 mg take by mouth, Vitamin B-12 1000 mcg/15ML once A day, Glimepiride 4 mg take one tablet by mouth twice daily, Murdock 3 fish oil 500 mg cap take one tablet 2 times A daily, Vitamin E 400 Unit 1/day, Cholecalciferol 50 mcg 2000 units PO daily, Ferrous Gluconate 324 (38 Fe) MG 1 by mouth every day PRE-OP EXAM: General appearance:NORMAL Other: Eyes: Conjunctivae and lids: NORMAL Pupils: ERR Ears, Nose, Mouth, and Throat: NORMAL Other: Inspection of lips, teeth and gums: NORMAL Other: Neck: Examination of neck: no masses noted. Respiratory: Assessment of respiratory effort: NORMAL Other: Auscultation of lungs: clear to auscultation no wheezes, rhonchi or rales. Cardiovascular: Auscultation of heart: regular rate and rhythm, no murmurs, gallops or rubs. Exam of carotid arteries: NORMAL Other: Gastrointestinal: Exam of abdomen: soft, nontender, nondistended bowel sounds present. PHYSICAL EXAMINATION: Patient does walk with a limping gait. Previous incision is well healed. Range of motion of the right knee 0 of extension to 90 degrees flexion. Sensation intact to light touch. Neurovascularly intact. IMAGING STUDIES: Previous x-rays of the right knee reveal stable alignment articulating antibiotic spacer with well fixed implants. IMPRESSION: 1. Right knee antibiotic spacer 2. Type 2 diabetes mellitus 3. Hypertension 4. Previous urinary tract infections 5. Osteoporosis 6. Gastroesophageal reflux disease PLAN: Dr. Oren Casillas did discuss and review with the patient all treatment options including surgical versus nonsurgical options. Patient does wish to proceed with the above-stated procedure. Potential risks, benefits, and complications of the procedure were discussed in detail including but not limited to , infection, nerve and blood vessel damage, persistent pain, numbness, tingling, paresthesias, blood clot, pulmonary embolism, and requirement for possible further surgery. The patient expressed full understanding and has no further questions for the doctor. Patient does agree to proceed with the above-stated procedure and has signed the surgery consent form. We discussed the current risks associated with COVID 19. This does include the risk of exposure while in the hospital. Patient was reassured local hospitals have low infection rates and are taking all necessary precautions to avoid exposure to patients. In addition, we discussed strategies that can be used to help limit exposure including those that limit the patient's time in the hospital. Also using strategies to limit the patient's need for continued inpatient services after being discharged from the hospital. Patient was notified that we will need to comply with any screening or testing the hospital wishes to perform or that surgery may be delayed for any positive results. This dictation was created using voice recognition software. Phonetic and/or grammatical errors may ___ I have re-examined the patient. There are no clinical changes since date of exam. ___ See progress notes for changes. ___ Dictated on admission Date: Time: Signature:
[2020-10-04] VITALS (15 sets, daily range): BP systolic 105–150; BP diastolic 40–87; PULSE 58–75; RESP 12–18; TEMP 36.3–37; O2SAT 94–100; BMI 29.1
[2020-10-04] MEDS: Lactated Ringers 1,000 ML 125 ML IV ×2 (06:40→17:10)
[2020-10-04 07:50] LABS: Bedside Glucose 262 mg/dL (70-110)
[2020-10-04] MEDS: Insulin Lispro 100 UNIT/ML INSULN.PEN SC ×2 (07:54→21:20)
[2020-10-04] MEDS: Gabapentin 600 MG Tablet PO (07:55)
[2020-10-04] MEDS: Acetaminophen 500 MG Tablet 1000 MG PO ×2 (07:55→21:18)
[2020-10-04] MEDS: Lactated Ringers 1,000 ML 999 ML IV ×2 (07:56→11:45)
[2020-10-04] MEDS: Cefazolin 2 GM in 0.9% Normal Saline 100 ML IV (10:11)
--- NOTE | 2020-10-04 10:14 | OP.PCM_ITS ---
Report of Operation Date of Procedure: 10/04/20 Pre-Operative Diagnosis: Right hip osteoarthritis. Left hip osteoarthritis Post-Operative Diagnosis: Right hip osteoarthritis. Left hip osteoarthritis Surgery/Procedure Performed:: Direct anterior right total hip replacement. Direct anterior left total replacement Description of Surgical Findings:: Stable hip with equal leg lengths fire prevention inspector: Paige Cowan Type of Anesthesia:: Spinal Anesthesiologist: Andre Narayanan Special Medications: 2 g Ancef, 1 g TXA at incision, 1 g TXA closure, 10 mg Decadron, joint cocktail (5 mg Duramorph, 30 mL of 0.5% Ropivicaine, 1000 units of epinephrine, 30 mg of Toradol) Estimated Blood Loss (mL): 500 mL Fluids Replaced: 2000 L crystalloid Description of Procedure: Components used: Left 1. Accolade 2 Encampment femoral stem size 3 127? 2. Encampment trident 2 acetabular shell size 50 mm 3. Josh X3 polyethylene D 4. Encampment Biolox delta 32mm, 0mm femoral head 1. Accolade 2 Encampment femoral stem size 3 127? 2. Josh trident 2 acetabular shell size 50 mm 3. Encampment X3 polyethylene D 4. Encampment Biolox delta 32mm, +4mm femoral head Brief history operative indications: 75 yo F who failed conservative measures for their bilateral hip osteoarthritis. X-rays were consistent with osteoarthritis including joint space narrowing, osteophyte formation and subchondral cysts. Total hip replacement was discussed with the patient with risks and benefits including but not limited to blood loss, DVTs, PEs, neurovascular damage, dislocation, general risks of anesthesia including loss of life. Patient demonstrated an understanding medical clearance is obtained the patient was consented for surgery. Procedure: On the date of procedure the patient's bilateral hips was marked in the preoperative area. Patient was then taken back to the operating room where anesthesia assumed control of the C-spine and airway and administered anesthetic. Patient was transferred to the operating table and placed in the supine position. The hips were placed at the break of the bed and a sacral bump was placed. The bilateral lower extremity was then prepped out in a sterile fashion using chlorhexidine while the surgeon scrubbed. The PA was vital in the positioning of the patient. Upon reentering the room the bilateral lower extremity was draped in the standard orthopedic fashion and the incision was marked. A timeout was called and everyone agreed upon the side, the site, the procedure be performed, antibody given, and patient's identity. Attention was first directed towards the left hip. At this time incision was made through skin, subcutaneous tissue, and fat down to fascia. The fascia was then incised and the TFL was retracted laterally. A retractor was placed on the lateral border of the femoral neck. Attention was directed to the inferior portion of the approach and all crossing vessels were identified and appropriately coagulated. A retractor was then placed on the medial portion of the femoral neck. The anterior capsule was then cleared of all soft tissue and then H shaped capsulotomy was made. The retractors were then placed inside the capsule. The femoral neck was identified and a cleanup cut was made. At this time a power corkscrew was used to remove the femoral head. Attention was then turned toward the acetabulum where the soft tissues were appropriately retracted and the acetabulum was sequentially reamed to 50 mm. A 50 mm cup was then selected and impacted into place. Acetabular liner was impacted into place and locking mechanism was verified. The position of the acetabular cup was then verified under live fluoroscopy. Attention was then turned to the femur. Soft tissue releases on the medial and lateral femoral neck were appropriately done, the leg was externally rotated and lateralized. A Wilkinson retractor was placed medially and proximally to the greater trochanter this allowed appropriate visualization and exposure of the femoral canal. Rongeour was then used to remove excess lateral bone. A canal finder and entry broach were used to open the proximal canal. Once we verified we were down the femoral canal we subsequently broached up to a size 3 femur. The appropriate neck was placed in the previously selected head was trialed with a 0 mm neck. Traction was pulled and the hip was reduced with internal rotation. Once it was appropriately reduced and stability was checked. There was minimal shuck, equal leg lengths and appropriate stability with hyperextension and external rotation as well as with 90? flexion and internal rotation. Fluoroscopy was then also used to verify the position of the components and leg lengths using the contralateral side for comparison. The trial components were then dislocated the proximal femur was again exposed and the components were removed from the wound. The final components were verified and opened. The wound was copiously irrigated out with normal saline. The acetabulum was checked for any residual debris. The final components were placed and impacted. Traction and internal rotation were again used to reduce the hip. After adequate reduction the hip remained stable with appropriate leg lengths. The final components were once again checked with live fluoroscopy and were found to be satisfactory. The wound was then copiously irrigated with normal saline once more, and hemostasis was obtained. Closure was then done using #1 Vicryl runner to close the fascia. A 2-0 vicryl interuppted sutures were used to close the subcutaneous skin. A 3-0 Monocryl and Steri-Strips were used for final skin closure. A Silverlon dressing was placed. Attention was then directed towards the right hip. At this time incision was made through skin, subcutaneous tissue, and fat down to fascia. The fascia was then incised and the TFL was retracted laterally. A retractor was placed on the lateral border of the femoral neck. Attention was directed to the inferior portion of the approach and all crossing vessels were identified and appro priately coagulated. A retractor was then placed on the medial portion of the femoral neck. The anterior capsule was then cleared of all soft tissue and then H shaped capsulotomy was made. The retractors were then placed inside the capsule. The femoral neck was identified and a cleanup cut was made. At this time a power corkscrew was used to remove the femoral head. Attention was then turned toward the acetabulum where the soft tissues were appropriately retracted and the acetabulum was sequentially reamed to 50 mm. A 50 mm cup was then selected and impacted into place. Acetabular liner was impacted into place and locking mechanism was verified. The position of the acetabular cup was then verified under live fluoroscopy. Attention was then turned to the femur. Soft tissue releases on the medial and lateral femoral neck were appropriately done, the leg was externally rotated and lateralized. A Wilkinson retractor was placed medially and proximally to the greater trochanter this allowed appropriate visualization and exposure of the femoral canal. Rongeour was then used to remove excess lateral bone. A canal finder and entry broach were used to open the proximal canal. Once we verified we were down the femoral canal we subsequently broached up to a size 3 femur. The appropriate neck was placed in the previously selected head was trialed with a +4 mm neck. Traction was pulled and the hip was reduced with internal rotation. Once it was appropriately reduced and stability was checked. There was minimal shuck, equal leg lengths and appropriate stability with hyp erextension and external rotation as well as with 90? flexion and internal rotation. Fluoroscopy was then also used to verify the position of the components and leg lengths using the contralateral side for comparison. The trial components were then dislocated the proximal femur was again exposed and the components were removed from the wound. The final components were verified and opened. The wound was copiously irrigated out with normal saline. The acetabulum was checked for any residual debris. The final components were placed and impacted. Traction and internal rotation were again used to reduce the hip. After adequate reduction the hip remained stable with appropriate leg lengths. The final components were once again checked with live fluoroscopy and were found to be satisfactory. The wound was then copiously irrigated with normal saline once more, and hemostasis was obtained. Closure was then done using #1 Vicryl runner to close the fascia. A 2-0 vicryl interuppted sutures were used to close the subcutaneous skin. A 3-0 Monocryl and Steri-Strips were used for final skin closure. A Silverlon dressing was placed. Patient was awakened by anesthesia and transferred to the [facility]. Patient was then transferred to the PACU for recovery. Postoperative plan: Patient will get 24 hours postop antibiotics. Patient will get in-house physical therapy and will be weight-bear as tolerated. Patient will follow up in office in 2 weeks for a wound check and x-rays. Xarelto 10 mg daily due to bilateral procedures and increased risk. - Complications No intraoperative complications - Admit VTE Documentation VTE Present on Admission: No VTE Mechan Device Prophylaxis: SCD's, Thigh High PAKO Hose VTE Pharm Prophylaxis ordered?: Yes
[2020-10-04] MEDS: Lactated Ringers 1,000 ML 100 ML IV (11:00)
--- NOTE | 2020-10-04 13:18 | PCM.OPRPT ---
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 Right knee revision total knee replacement entire femur, tibia and patella implants Description of Surgical Findings:: Stable knee with good patella tracking. As we were doing our final tibial implant during impaction we did note a cortical fracture in the anterior medial tibia. No other fracture lines were noted. The fracture extended 4.5 cm distal based on the overall length of the construct and examination the fracture was deemed to be stable. Based on the construct we would not of been able to place any screws or fixation across it. Cables were felt to be greater risk than benefit. pipe manufacture supervisor: Bj Jimenez Type of Anesthesia:: Spinal Anesthesiologist: Andre Narayanan Special Medications: 2 g Ancef, 1 g TXA at incision, 1 g TXA closure, 10 mg Decadron, joint cocktail (5 mg Duramorph, 30 mL of 0.5% Ropivicaine, 1000 units of epinephrine, 30 mg of Toradol) Estimated Blood Loss (mL): 75 Fluids Replaced: 1000 mL crystalloid Description of Procedure: Implants used: Femur: [place] [employer] triathlon size 4 right TS femur with 5 mm augments distally medially and laterally, posteriorly medially and laterally. 15 x 100 mm cemented stem. Tibia: Josh triathlon size 4 universal tibial baseplate with 5 mm augments medially and laterally. 50 x 15 mm stem. Poly: 22 mm TS Josh polyethylene. Patella: [place] press-fit 29 mm patella. Brief history operative indications: 75-year-old f with total knee replacement previously followed by subsequent infection. Patient had irrigation debridement with placement of an antibiotic spacer articulating in fashion. After doing well with her IV antibiotics and showing no further signs of infection we agreed to proceed with revision total knee replacement which had risks which include but not limited to blood loss, DVTs, PEs, nervous damage, infection, the risk of anesthesia. Patient demonstrate understanding was able to sign informed consent. Medical clearance was obtained. Procedure: On the date of procedure patient's r lower extremity was marked in the preoperative area. The patient was then taken back to the operating room where the patient was placed on the table in the supine position. All bony prominences were identified a well-padded. Anesthesia assumed control of the C-spine and airway and remained controlled throughout the remainder of the procedure. A tourniquet was placed on the r upper thigh and the leg was prepped in a sterile fashion. The surgeon then scrubbed at this time. Upon reentering the room r lower extremity was draped in a standard orthopedic fashion. A timeout was then called and everyone agreed upon the side, the site, the procedure to be performed, patient's identity and antibiotics given. An Esmarch bandage was used to exsanguinate the extremity and the tourniquet was placed up to 250 mmHg with the knee in flexion. A midline skin incision was made using the previous incision and extending it proximally and distally to identify normal tissue planes. Medial and lateral flaps were developed appropriate releases. The standard medial parapatellar arthrotomy was made and the patella was subluxed laterally. At this time an aggressive synovectomy was performed re-creating the medial gutter first, then the suprapatellar pouch than the lateral gutter. Once this was completed the knee was flexed up an osteotome was used to remove the tibial polyethylene. The remainder of the synovium was debrided. The standard deep MCL release was done and the patella scar pad was resected and lateral releases were performed. Next our attention was directed to the femur. Where flexible osteotomes and TPS saw were used to break up the implant cement interface. This was done both medially and laterally. After this a bone tamp was used to remove the femur component from the end of the bone. This was done with minimal bone loss. At this time the cement dowel for antibiotic delivery was removed from the canal. At this time attention was now directed towards the proximal tibia. Possible osteotome and TPS saw were then used to break up the proximal tibia implant interface and stacked osteotomes were used to remove the tibial implant. This was done with minimal bone loss. At this time the cement dowel for cement delivery was removed from the tibial canal. Our attention was then turned to the tibia where the intramedullary canal was reamed to 18 and a size C tibial cone was reamed. We then made a cleanup cut on the tibia, A drop rodolfo was then used to verify the cut. A size 4 tibial base plate was selected with 5 mm augments. the knee was flexed and the tibial component was pinned into place and the boss reamer was used to ream the proximal medullary canal. The trial implant was impacted in its prepared position. Our attention was then turned back to the femur or the femur intramedullary canal was reamed to 19 mm using the previous implants a size 4 TCG cutting guide with a 19 x 150 mm mm stem was put into place. The medial epicondyle was used to set the joint line. With this TCG cutting guide we used a 22 mm polyethylene trial in order to help balance the gaps. Once the gaps were appropriately balanced the guide was firmly pinned into place. Distal cuts were made with 5 mm augments medially and 5 mm augment laterally. Posterior cuts were made with 5 mm augments medially and 5 mm augment laterally. Using the guide the box cut was made using a reciprocating saw. The appropriate trials were then placed on the femur and tibia. A trial polyethylene was trialed to ensure proper balancing and stability of the knee. Patella tracking, was then verified and corrected appropriately as needed. Our attention was then directed to the patella. Patella remained intact and appropriate. Based on x-rays it was firmly fixed. Patellar tracking was again checked and deemed appropriate. Previous cement was debrided from the patella. Cleanup cut was made and the patella was prepped for a 29 mm asymmetric patella. Final components were verified and opened, 6 liters of normal saline were irrigated throughout the joint under low-pressure lavage. Then the cement was mixed in a vacuum. Josh Simplex cement with tobramycin was used. The wound was copiously irrigated with normal saline. When the cement was ready cement plugs were placed in the tibial cone was placed the components were cemented into place starting with the tibia during impaction of the tibia upon final impaction we did note a cortical disruption in the anteromedial tibia. We examined the remaining circumference of the tibia and noted no further disruption. We carefully explored this fracture and measured at 4.5 cm distal on the tibia. Based on the cone in place we were not able to place screws. Based on the stability we felt that cables in this location offered greater risk than benefit. Elected to proceed with weightbearing restrictions. Once the cemented cured for the tibia we then cemented the femur. The trial poly component was placed and the knee was placed in full extension. All excess cement was removed in the process. Once the cement had cured the tracking, alignment and balance were verified and a size 22 mm TS polyethylene component was placed. At this point the knee was extended and the press-fit polyethylene was placed. Once this was done we took the knee through range of motion patient had good stability and good patella tracking. Once the final components were placed and cement had cured we then did a dilute Betadine lavage. This was followed by a a chlorhexidine lavage was used and the wound was copiously irrigated with normal saline solution and the remainder of the periarticular injection was given. The wound was closed in a layer aguila fashion using #1 vicryl interrupted sutures for the arthrotomy, 2-0 interrupted Vicryl for the subcuticular layer and aimee for final skin closure. A sterile compressive dressing was then placed. The patient was then awakened from anesthesia, transferred to the [facility] and transferred to the PACU for recovery. Post op plan DVT ppx: ASA 81mg BID, thigh high compression stockings Follow up: in office in 2 weeks for wound check patient will be placed on doxycycline for 1 week as we follow cultures. PT: to start POD #0 at hospital, based on the intraoperative fracture we will start the patient on toe-touch weightbearing and progress to partial weightbearing 50% at 2 weeks postop followed by progression to weightbearing as tolerated 6 weeks postop. Ultimately progression of weightbearing will be based on healing both radiographically and clinically. - Complications Intermediate cortical fracture of the tibia. - Admit VTE Documentation VTE Present on Admission: No VTE Mechan Device Prophylaxis: SCD's, Thigh High PAKO Hose VTE Pharm Prophylaxis ordered?: Yes
--- NOTE | 2020-10-04 13:20 | RAD_ITS ---
STUDY: X-RAY - RIGHT KNEE REASON FOR EXAM: Female, 75 years old. Post op right knee TECHNIQUE: 2 view(s) of the knee. COMPARISON: Comparison is made with prior examination 06/28/2020. FINDINGS: Normal visualized distal femur. Normal visualized proximal tibia and fibula. Normal proximal tibiofibular articulation. The patient is status post revision of the knee prosthesis with placement of the fixed prosthetic knee joint. There is good alignment. Postoperative soft tissue changes. RAD/Knee 1 or 2 Views IMPRESSION: Status post revision of a prosthetic knee joint with placement of a longstem fixed type of prosthesis. The alignment. Postoperative soft tissue changes. Electronically Signed: Thomas Bhatt MD at 13:59 EST , Service support ,
--- NOTE | 2020-10-04 14:26 | PCM.PN.HOSP ---
<Ganesh Robles - Last Filed: 10/04/20 14:26> Reason for Visit: post op right knee revision Subjective: Pt unerwent a right knee revision with antibiotic spacer removal. She is currently resting in recovery in NAD, c.o mild pain starting at knee. No fever/chills/nausea/vomiting/sob/cough. Doing well, somewhat groggy. Vitals/I&O's: Vital Signs Temp Pulse Resp BP Pulse Ox 98.6 F 58 L 18 114/55 L 100 10/04/20 13:15 10/04/20 13:25 10/04/20 13:25 10/04/20 13:25 10/04/20 13:25 Oxygen Flow Rate (L/min) 6 Oxygen Delivery Method Simple Mask Weight: 180 lb 8.937 oz Body Mass Index (BMI) 29.1 Intake and Output for Last 24 Hours 10/02/20 10/03/20 10/04/20 23:59 23:59 23:59 Intake Total 1330 / 1330 Balance 1330 / 1330 General: Alert, Oriented x3, Cooperative HEENT: Atraumatic, PERRLA, EOMI, Normocephalic Neck: Supple, No JVD, Negative Carotid Bruits Lungs: Clear to auscultation, Normal air movement Cardiovascular: Regular rate, No murmurs Abdomen: Bowel Sounds Present, Soft, Non Tender Extremities: No edema, Capillary Refill Less than 3 Seconds Skin: No rashes, No breakdown Musculoskeletal: No Tenderness to Palpation of Joints or Extremities Neurological: Cranial nerves II-XII grossly intact Psych/Mental Status: Normal Affect, Appropriate, Alert and oriented to time, place, person, mood and affect Microbiology Past 72 Hours 10/03/20 09:12 Interface Orders SARS-CoV-2 Antigen (Rapid) - Final Laboratory Results 10/04/20 07:46: POC Glucose 262 H Current Medications Acetaminophen (Acetaminophen 500 Mg Tablet) 1,000 mg PO Q8 [facility] Aspirin (Aspirin 81 Mg Tab.Chew) 81 mg PO BIDCM [facility] Cholecalciferol (Cholecalciferol (Vit D3) 1,000 Unit (25mcg)) 2,000 unit PO BIDCM [facility] Doxycycline Monohydrate (Doxycycline 100 Mg Capsule) 100 mg PO BID [facility] Enteral Nutritional Formula (Ensure Surgery 237 Ml Liquid) 237 ml PO TIDCM [facility] Ferrous Gluconate (Ferrous Gluconate 324 Mg Tablet) 324 mg PO DAILY@1200 [facility] Folic Acid (Folic Acid 1 Mg Tablet) 1 mg PO DAILY@0800 [facility] Glimepiride ([facility]pir[facility] 4 Mg Tablet) [facility] Hydrochlorothiazide (Hydrochlorothiazide 25 Mg Tablet) 25 mg PO DAILY [facility] Lactated Ringer's () 1,000 mls @ 125 mls/hr IV .Q8H [facility] Stop: 10/04/20 20:44 Lactated Ringer's () 1,000 mls @ 125 mls/hr IV .Q8H [facility] Last Admin: 10/04/20 06:40 Dose: 125 mls/hr Documented by: Cefazolin Sodium () 1 gm in 50 mls @ 150 mls/hr IV Q8H [facility] Stop: 10/05/20 02:19 Insulin Human Lispro (Insulin Lispro 100 Unit/Ml Insuln.Pen) 1 - 6 unit SC Q4H PRN PRN; Protocol PRN Reason: BG>/= 180, SEE PROTOCOL Stop: 10/04/20 16:45 Last Admin: 10/04/20 07:54 Dose: 3 units Documented by: Ketorolac Tromethamine (Ketorolac 15 Mg/Ml Vial) 15 mg IV Q6H PRN PRN PRN Reason: Pain Score 1-5 Stop: 10/06/20 06:40 Lactobacillus Acidophilus (Lactobacillus Acidophilus) 1 tablet PO BID [facility] Lisinopril (Lisinopril 40 Mg Tablet) 40 mg PO DAILY [facility] Meloxicam (Meloxicam 7.5 Mg Tablet) 7.5 mg PO BID [facility] Morphine Sulfate (Morphine 2 Mg/Ml Syringe) 2 - 4 mg IV Q2H PRN PRN PRN Reason: Pain Score 6-10 Morphine Sulfate (Morphine 4 Mg/Ml Syringe) 2 - 4 mg IV Q2H PRN PRN PRN Reason: Pain Score 6-10 Non-Formulary Medication (Insulin Lispro Protamin/Lispro [Humalog Mix 50-50 Kwikpen]) 20 unit SC TID [facility] Ondansetron HCl (Ondansetron 4 Mg/2 Ml Vial) 4 mg IV Q8H PRN PRN PRN Reason: NAUSEA Oxycodone HCl (Oxycodone 5 Mg Tablet) 5 - 10 mg PO Q4H PRN PRN PRN Reason: Pain Score 4-10 Pantoprazole Sodium (Pantoprazole Sodium 20 Mg Tablet) 20 mg PO DAILY PRN PRN Reason: HEARTBURN Promethazine HCl (Promethazine 25 Mg/Ml Syringe) 12.5 mg IM Q6H PRN PRN; Protocol PRN Reason: NAUSEA/VOMITING Senna/Docusate Sodium (Senna/Docusate Sodium 1 Tablet) 2 tablet PO BID [facility] Trimethoprim (Trimethoprim 100 Mg Tablet) 100 mg PO Q12H [facility] STROKE Vital Signs/Narrative: Vital Signs Temp Pulse Resp BP Pulse Ox 10/04/20 13:25 58 L 18 114/55 L 100 10/04/20 13:22 64 18 120/55 L 100 10/04/20 13:15 98.6 F 69 12 121/55 H 97 Medical Necessity - Tobacco Use Smoking Status: Never smoker Tobacco Use: Non-smoker Assessment/Plan All Active Problems (Last Reviewed 08/24/19 @ 12:[address] 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 Osteoarthritis, infected right knee, Right total knee revision with antibiotic spacer removal POD#0- care as per Dr. Casillas. Pt doing well no issues. 2. DMt2 - SSI, hold orals, continue lispro 20 tid when able to eat. 3. HTN - resume lisinopril, HCTZ in AM 4. Chronic UTIs - trimethoprim bid 5. GERD - PPI DVT ppx: per ortho asa 81 mg BID Thank you for the opportunity to participate in the care of this patient. This patient was seen by Ganesh Robles PA-C under the supervision of Dr. Cline. <Gregor Cline F - Last Filed: 10/04/20 15:30> Vitals/I&O's: Vital Signs Temp Pulse Resp BP Pulse Ox 97.4 F L 65 18 123/61 H 100 10/04/20 14:56 10/04/20 14:56 10/04/20 14:56 10/04/20 14:56 10/04/20 14:56 Oxygen Flow Rate (L/min) 6 Oxygen Delivery Method Simple Mask Weight: 180 lb 8.937 oz Body Mass Index (BMI) 29.1 Intake and Output for Last 24 Hours 10/02/20 10/03/20 10/04/20 23:59 23:59 23:59 Intake Total 3435 / 3435 Balance 3435 / 3435 Microbiology Past 72 Hours 10/04/20 Unknown Tissue - Knee Gram Stain - Final 10/04/20 10:50 Tissue - Knee Gram Stain - Final 10/04/20 10:45 Tissue - Knee Gram Stain - Final 10/03/20 09:12 Interface Orders SARS-CoV-2 Antigen (Rapid) - Final Laboratory Results 10/04/20 07:46: POC Glucose 262 H 10/04/20 14:50: POC Glucose 159 H Current Medications Acetaminophen (Acetaminophen 500 Mg Tablet) 1,000 mg PO Q8 [facility] Aspirin (Aspirin 81 Mg Tab.Chew) 81 mg PO BIDCM [facility] Cholecalciferol (Cholecalciferol (Vit D3) 1,000 Unit (25mcg)) 2,000 unit PO BIDCM [facility] Doxycycline Monohydrate (Doxycycline 100 Mg Capsule) 100 mg PO BID [facility] Enteral Nutritional Formula (Ensure Surgery 237 Ml Liquid) 237 ml PO TIDCM [facility] Last Admin: 10/04/20 15:14 Dose: Not Given Documented by: Ferrous Gluconate (Ferrous Gluconate 324 Mg Tablet) 324 mg PO DAILY@1200 [facility] Folic Acid (Folic Acid 1 Mg Tablet) 1 mg PO DAILY@0800 [facility] Glimepiride (Glimepiride 4 Mg Tablet) 4 mg PO BIDCM [facility] Hydrochlorothiazide (Hydrochlorothiazide 25 Mg Tablet) 25 mg PO DAILY [facility] Lactated Ringer's () 1,000 mls @ 125 mls/hr IV .Q8H [facility] Stop: 10/04/20 20:44 Lactated Ringer's () 1,000 mls @ 125 mls/hr IV .Q8H [facility] Last Admin: 10/04/20 06:40 Dose: 125 mls/hr Documented by: Cefazolin Sodium () 1 gm in 50 mls @ 150 mls/hr IV Q8H [facility] Stop: 10/05/20 02:19 Insulin Human Lispro (Insulin Lispro 100 Unit/Ml Insuln.Pen) 1 - 6 unit SC Q4H PRN PRN; Protocol PRN Reason: BG>/= 180, SEE PROTOCOL Stop: 10/04/20 16:45 Last Admin: 10/04/20 07:54 Dose: 3 units Documented by: Ketorolac Tromethamine (Ketorolac 15 Mg/Ml Vial) 15 mg IV Q6H PRN PRN PRN Reason: Pain Score 1-5 Stop: 10/06/20 06:40 Lactobacillus Acidophilus (Lactobacillus Acidophilus) 1 tablet PO BID [facility] Lisinopril (Lisinopril 40 Mg Tablet) 40 mg PO DAILY [facility] Meloxicam (Meloxicam 7.5 Mg Tablet) 7.5 mg PO BID [facility] Morphine Sulfate (Morphine 2 Mg/Ml Syringe) 2 - 4 mg IV Q2H PRN PRN PRN Reason: Pain Score 6-10 Morphine Sulfate (Morphine 4 Mg/Ml Syringe) 2 - 4 mg IV Q2H PRN PRN PRN Reason: Pain Score 6-10 Non-Formulary Medication (Insulin Lispro Protamin/Lispro [Humalog Mix 50-50 Kwikpen]) 20 unit SC TID [facility] Ondansetron HCl (Ondansetron 4 Mg/2 Ml Vial) 4 mg IV Q8H PRN PRN PRN Reason: NAUSEA Oxycodone HCl (Oxycodone 5 Mg Tablet) 5 - 10 mg PO Q4H PRN PRN PRN Reason: Pain Score 4-10 Pantoprazole Sodium (Pantoprazole Sodium 20 Mg Tablet) 20 mg PO DAILY PRN PRN Reason: HEARTBURN Promethazine HCl (Promethazine 25 Mg/Ml Syringe) 12.5 mg IM Q6H PRN PRN; Protocol PRN Reason: NAUSEA/VOMITING Senna/Docusate Sodium (Senna/Docusate Sodium 1 Tablet) 2 tablet PO BID [facility] Last Admin: 10/04/20 15:14 Dose: Not Given Documented by: Trimethoprim (Trimethoprim 100 Mg Tablet) 100 mg PO Q12H [facility] STROKE Vital Signs/Narrative: Vital Signs Temp Pulse Resp BP Pulse Ox 10/04/20 14:56 97.4 F L 65 18 123/61 H 100 10/04/20 14:45 64 18 115/51 L 100 10/04/20 14:30 69 16 134/55 H 100 10/04/20 14:15 67 16 117/54 L 100 10/04/20 14:00 65 16 120/59 L 100 10/04/20 13:45 63 16 112/50 L 100 10/04/20 13:30 65 16 121/58 H 100 10/04/20 13:25 58 L 18 114/55 L 100 10/04/20 13:22 64 18 120/55 L 100 10/04/20 13:15 98.6 F 69 12 121/55 H 97 Addendum: Dr. Cline I personally examined the patient and reviewed the chart. I agree with the above. 75-year-old female presents to the hospital for removal of her antibiotic spacer and then revision of her right total knee replacement. We were consulted for medical management. She has a history of diabetes, hypertension, and iron deficiency anemia. All of these are stable prior to surgery no changes recently to her medications. We will continue to monitor and continue her home medications. Her creatinine was at 1.20 on 08/28/2020 which is at baseline for her. We will recheck in the morning. Continue antibiotics per primary as well as pain management and PT/OT. Cultures are currently pending, and depending what arises may need to get infectious disease involved. Inpatient E&M: 34321 Subs Hosp L3
--- NOTE | 2020-10-04 14:41 | CASEMGMT ---
Social Work Note SW received call from Bonnie in TCU stating pt has been in contact with TCU before surgery and would like to admit to TCU once discharged. SW placed transfer to extended care facility on pt's chart. SW to follow up with pt tomorrow. Maren Mcknight HOTEL SERVICE MANAGER, TRAIN OPERATOR
[2020-10-04 14:56] LABS: Bedside Glucose 159 mg/dL (70-110)
[2020-10-04] MEDS: Folic Acid 1 MG Tablet PO (17:12)
[2020-10-04] MEDS: Aspirin 81 MG TAB.CHEW PO (17:12)
[2020-10-04] MEDS: Ferrous Gluconate 324 MG Tablet PO (17:12)
[2020-10-04] MEDS: hydroCHLOROthiazide 25 MG Tablet PO (17:12)
[2020-10-04 17:30] LABS: Bedside Glucose 170 mg/dL (70-110)
[2020-10-04] MEDS: Cefazolin 1 GM/50 ML BAG IV (18:28)
[2020-10-04] MEDS: Trimethoprim 100 MG Tablet PO (18:28)
[2020-10-04] MEDS: Ketorolac 15 MG/ML Vial IV (19:25)
[2020-10-04] MEDS: Senna/Docusate Sodium 1 Tablet 2 TABLET PO (21:18)
[2020-10-04] MEDS: Doxycycline 100 MG CAPSULE PO (21:18)
[2020-10-04 22:20] LABS: Bedside Glucose 151 mg/dL (70-110)
[2020-10-05] VITALS (7 sets, daily range): BP systolic 126–146; BP diastolic 51–99; PULSE 70–78; RESP 16–18; TEMP 36.9–38.1; O2SAT 94–100
[2020-10-05] MEDS: Lactated Ringers 1,000 ML 125 ML IV (01:10)
[2020-10-05] MEDS: Cefazolin 1 GM/50 ML BAG IV (01:10)
[2020-10-05] MEDS: Acetaminophen 500 MG Tablet 1000 MG PO ×3 (05:41→22:01)
[2020-10-05 06:04] LABS: Hematocrit 33.3 % (37-47); Hemoglobin 10.4 g/dL (12.0-15.0); Mean Corp Hgb Conc 31.2 g/dL (32-36); Mean Corpuscular Hgb 27.3 pg (27.0-32.0); Mean Corpuscular Volume 87.4 fL (81-99); Mean Platelet Vol. 9.7 fl (6.2-12.0); Platelet Count 185 K/mm3 (150-450); RBC Distribution Width CV 15.7 % (11.6-14.6); Red Blood Count 3.81 M/mm3 (4.2-5.4)
[2020-10-05] MEDS: Insulin Lispro 100 UNIT/ML INSULN.PEN SC ×3 (06:34→17:36)
[2020-10-05 06:45] LABS: Bedside Glucose 168 mg/dL (70-110)
[2020-10-05 07:13] LABS: Anion Gap 6 (5-15); BUN 16 mg/dL (7-18); BUN/Creat Ratio 13.9 RATIO (10-20); Calcium,Total 8.7 mg/dL (8.5-10.1); Chloride 107 mmol/L (98-107); Creatinine, Serum 1.15 mg/dL (0.55-1.02); EST Glomerular Filtration Rate 49 mL/min (>60); Est Glom Filt Rate - Afr Amer 59 mL/min (>60); Estimated Creatinine Clearance 39.57 ml/min; Glucose 144 mg/dL (74-106); Potassium 4.9 mmol/L (3.5-5.1); Sodium Level 140 mmol/L (136-145)
--- NOTE | 2020-10-05 07:25 | PCM.PN.ORT ---
Subjective: The patient was sitting in bed upon examination. Patient denies any chest pain, shortness of breath, dizziness, lightheadedness, nausea or vomiting, or calf pain. Pain is controlled on medications. No adverse overnight events. Patient states she feels weak trying to stand after the surgery. She denies any episodes of syncope. Patient does wish to try to go to transitional care unit. She does have limitations on the right lower extremity due to a cortical fracture of the anterior medial tibia. Objective: Vital signs stable and afebrile. Patient is able to plantarflex and dorsiflex actively. Sensation is intact to light touch to saphenous, sural, superficial and deep peroneal, and tibial distribution. Minimal drainage over the proximal dressing with remaining dressing dressing is clean dry and intact. Negative Homans bilaterally, negative signs and symptoms of DVT. - Physical Exam Vitals/I&O's: Vital Signs Temp Pulse Resp BP Pulse Ox 98.5 F 70 18 146/51 H 96 10/05/20 02:00 10/05/20 02:00 10/05/20 02:00 10/05/20 02:00 10/05/20 02:00 Oxygen Flow Rate (L/min) 6 Oxygen Delivery Method Room Air Weight: 81.9 kg Body Mass Index (BMI) 29.1 Intake and Output for Last 24 Hours 10/03/20 10/04/20 10/05/20 23:59 23:59 23:59 Intake Total 5714.17 / 5714.17 1250.00 / 1250.00 Output Total 950 / 950 1300 / 1300 Balance 4764.17 / 4764.17 -50.00 / -50.00 General: Alert, Oriented x3, Cooperative, No apparent distress Microbiology Past 72 Hours 10/04/20 Unknown Tissue - Knee Gram Stain - Final 10/04/20 10:50 Tissue - Knee Gram Stain - Final 10/04/20 10:45 Tissue - Knee Gram Stain - Final 10/03/20 09:12 Interface Orders SARS-CoV-2 Antigen (Rapid) - Final Laboratory Results 10/04/20 07:46: POC Glucose 262 H 10/04/20 14:50: POC Glucose 159 H 10/04/20 17:08: POC Glucose 170 H 10/04/20 21:20: POC Glucose 151 H 10/05/20 06:00: WBC 9.0, RBC 3.81 L, Hgb 10.4 L, Hct 33.3 L, MCV 87.4, MCH 27.3, MCHC 31.2 L, RDW Std Deviation 50.0 H, RDW Coeff of Rainer 15.7 H, Plt Count 185, MPV 9.7 10/05/20 06:00: Sodium 140, Potassium 4.9, Chloride 107, Carbon Dioxide 27.0, Anion Gap 6, BUN 16, Creatinine 1.15 H, Estim Creat Clear Calc 39.57, Est GFR (MDRD) Af Amer 59 L, Est GFR (MDRD) Non-Af 49 L, BUN/Creatinine Ratio 13.9, Glucose 144 H, Calcium 8.7 10/05/20 06:33: POC Glucose 168 H Current Medications Acetaminophen (Acetaminophen 500 Mg Tablet) 1,000 mg PO Q8 [facility] Last Admin: 10/05/20 05:41 Dose: 1,000 mg Documented by: Aspirin (Aspirin 81 Mg Tab.Chew) [facility] Last Admin: 10/04/20 17:12 Dose: 81 mg Documented by: Cholecalciferol (Cholecalciferol (Vit D3) 1,000 Unit (25mcg)) 2,[facility] Last Admin: 10/04/20 17:11 Dose: 2,000 unit Documented by: Doxycycline Monohydrate (Doxycycline 100 Mg Capsule) 100 mg PO BID [facility] Last Admin: 10/04/20 21:18 Dose: 100 mg Documented by: Enteral Nutritional Formula (Ensure Surgery 237 Ml Liquid) 237 ml PO TIDCM [facility] Last Admin: 10/04/20 17:21 Dose: Not Given Documented by: Ferrous Gluconate (Ferrous Gluconate 324 Mg Tablet) 324 mg PO DAILY@1200 [facility] Last Admin: 10/04/20 17:12 Dose: 324 mg Documented by: Folic Acid (Folic Acid 1 Mg Tablet) 1 mg PO DAILY@0800 [facility] Last Admin: 10/04/20 17:12 Dose: 1 mg Documented by: Hydrochlorothiazide (Hydrochlorothiazide 25 Mg Tablet) 25 mg PO DAILY [facility] Last Admin: 10/04/20 17:12 Dose: 25 mg Documented by: Lactated Ringer's () 1,000 mls @ 125 mls/hr IV .Q8H [facility] Last Infusion: 10/05/20 04:42 Dose: 15 mls/hr Documented by: Sodium Chloride () 250 mls @ 15 mls/hr IV .[id number] PRN PRN Reason: Saline Flush Sodium Chloride () 250 mls @ 15 mls/hr IV .[id number] PRN PRN Reason: Additional IVPB Infusion Insulin Human Lispro (Insulin Lispro 100 Unit/Ml Insuln.Pen) 0 unit SC [facility]; Protocol Last Admin: 10/05/20 06:34 Dose: 1 units Documented by: Ketorolac Tromethamine (Ketorolac 15 Mg/Ml Vial) 15 mg IV Q6H PRN PRN PRN Reason: Pain Score 1-5 Stop: 10/06/20 06:40 Last Admin: 10/04/20 19:25 Dose: 15 mg Documented by: Lactobacillus Acidophilus (Lactobacillus Acidophilus) 1 tablet PO BID [facility] Last Admin: 10/04/20 18:28 Dose: 1 tablet Documented by: Lisinopril (Lisinopril 40 Mg Tablet) 40 mg PO DAILY [facility] Meloxicam (Meloxicam 7.5 Mg Tablet) 7.5 mg PO BID [facility] Morphine Sulfate (Morphine 2 Mg/Ml Syringe) 2 - 4 mg IV Q2H PRN PRN PRN Reason: Pain Score 6-10 Morphine Sulfate (Morphine 4 Mg/Ml Syringe) 2 - 4 mg IV Q2H PRN PRN PRN Reason: Pain Score 6-10 Non-Formulary Medication (Insulin Lispro Protamin/Lispro [Humalog Mix 50-50 Kwikpen]) 20 unit SC TID [facility] Ondansetron HCl (Ondansetron 4 Mg/2 Ml Vial) 4 mg IV Q8H PRN PRN PRN Reason: NAUSEA Oxycodone HCl (Oxycodone 5 Mg Tablet) 5 - 10 mg PO Q4H PRN PRN PRN Reason: Pain Score 4-10 Pantoprazole Sodium (Pantoprazole Sodium 20 Mg Tablet) 20 mg PO DAILY PRN PRN Reason: HEARTBURN Promethazine HCl (Promethazine 25 Mg/Ml Syringe) 12.5 mg IM Q6H PRN PRN; Protocol PRN Reason: NAUSEA/VOMITING Senna/Docusate Sodium (Senna/Docusate Sodium 1 Tablet) 2 tablet PO BID [facility] Last Admin: 10/04/20 21:18 Dose: 2 tablet Documented by: Sodium Chloride (0.9% Saline Lock 10 Ml Syringe) 10 - 40 ml IV UD PRN PRN Reason: SALINE FLUSH Trimethoprim (Trimethoprim 100 Mg Tablet) 100 mg PO DAILY@1900 [facility] Last Admin: 10/04/20 18:28 Dose: 100 mg Documented by: Medical Necessity - Tobacco Use Smoking Status: Never smoker Tobacco Use: Non-smoker Assessment/Plan All Active Problems (Last Reviewed 08/24/19 @ 12:[address] 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 S/P right knee removal antibiotic spacer to a total knee arthroplasty with cortical fracture anterior medial tibia POD #1 2. Continue Pain Medications: Tylenol, oxycodone, meloxicam 3. DVT Prophylaxis: Take 81 mg aspirin twice daily for 4 weeks postoperatively for DVT prophylaxis 4. PT/OT: Patient will be toe-touch weightbearing for the first 2 weeks. This will be followed closely with x-rays and possible transition to 50% weightbearing at her 2-week follow-up. Weightbearing progression will be based on clinical exam and x-rays. 5. H & H: 10.4/33.3, asymptomatic. 6. Encouraged Incentive Spirometry 7. Continue with antibiotics while following cultures: Currently pending. She is on doxycycline for 1 week postoperatively 8. Continue postoperative medical management per medicine 9. Disposition: Due to patient's limited weightbearing status I would like to see how she does with physical therapy today. We will also have case management involved with appropriate clearances for the transitional care unit. Continue with physical therapy with range of motion without restrictions. Only restriction is with weightbearing.
--- NOTE | 2020-10-05 08:08 | PCM.PN.HOSP ---
Reason for Visit: Right knee removal nonbiodegradable antibiotic delivery system Subjective: Patient is a 75-year-old gentleman with history of periprosthetic joint infection involving the right knee who underwent right total knee revision with antibiotic spacer removal on 10/04/2020. Hospitalist service was consulted for management of postoperative medical comorbidities Objective: GENERAL: cooperative HEENT: Atraumatic; EYES; Anicteric, Normal Conjunctiva NECK; supple, normal thyroid, RESPIRATORY: Diminished to auscultation CARDIOVASCULAR: Regular S1 S2, GI: soft, normoactive bowel sounds, : No Renal angle tenderness; EXTREMITIES: No edema, no clubbing, MUSCULOSKELETAL: Right knee in surgical dressing NEURO: Awake; no lateralizing signs. SKIN: No Rash PSYCH; Flat affect Vitals/I&O's: Vital Signs Temp Pulse Resp BP Pulse Ox 98.5 F 70 18 146/51 H 96 10/05/20 02:00 10/05/20 02:00 10/05/20 02:00 10/05/20 02:00 10/05/20 02:00 Oxygen Flow Rate (L/min) 6 Oxygen Delivery Method Room Air Weight: 81.9 kg Body Mass Index (BMI) 29.1 Intake and Output for Last 24 Hours 10/03/20 10/04/20 10/05/20 23:59 23:59 23:59 Intake Total 5714.17 / 5714.17 1296.75 / 1296.75 Output Total 950 / 950 1300 / 1300 Balance 4764.17 / 4764.17 -3.25 / -3.25 Microbiology Past 72 Hours 10/04/20 Unknown Tissue - Knee Gram Stain - Final 10/04/20 10:50 Tissue - Knee Gram Stain - Final 10/04/20 10:45 Tissue - Knee Gram Stain - Final 10/03/20 09:12 Interface Orders SARS-CoV-2 Antigen (Rapid) - Final Laboratory Results 10/04/20 14:50: POC Glucose 159 H 10/04/20 17:08: POC Glucose 170 H 10/04/20 21:20: POC Glucose 151 H 10/05/20 06:00: WBC 9.0, RBC 3.81 L, Hgb 10.4 L, Hct 33.3 L, MCV 87.4, MCH 27.3, MCHC 31.2 L, RDW Std Deviation 50.0 H, RDW Coeff of Rainer 15.7 H, Plt Count 185, MPV 9.7 10/05/20 06:00: Sodium 140, Potassium 4.9, Chloride 107, Carbon Dioxide 27.0, Anion Gap 6, BUN 16, Creatinine 1.15 H, Estim Creat Clear Calc 39.57, Est GFR (MDRD) Af Amer 59 L, Est GFR (MDRD) Non-Af 49 L, BUN/Creatinine Ratio 13.9, Glucose 144 H, Calcium 8.7 10/05/20 06:33: POC Glucose 168 H Current Medications Acetaminophen (Acetaminophen 500 Mg Tablet) 1,000 mg PO Q8 [facility] Last Admin: 10/05/20 05:41 Dose: 1,000 mg Documented by: Aspirin ([facility]in 81 Mg [facility].Chew) [facility] Admin: 10/04/20 17:12 Dose: 81 mg Documented by: Cholecalciferol (Cholecalciferol (Vit D3) 1,000 Unit (25mcg)) [facility] Last Admin: 10/04/20 17:11 Dose: 2,000 unit Documented by: Doxycycline Monohydrate (Doxycycline 100 Mg Capsule) 100 mg PO BID [facility] Last Admin: 10/04/20 21:18 Dose: 100 mg Documented by: Enteral Nutritional Formula (Ensure Surgery 237 Ml Liquid) 237 ml PO TIDCM [facility] Last Admin: 10/04/20 17:21 Dose: Not Given Documented by: Ferrous Gluconate (Ferrous Gluconate 324 Mg Tablet) 324 mg PO DAILY@1200 [facility] Last Admin: 10/04/20 17:12 Dose: 324 mg Documented by: Folic Acid (Folic Acid 1 Mg Tablet) 1 mg PO DAILY@0800 [facility] Last Admin: 10/04/20 17:12 Dose: 1 mg Documented by: Hydrochlorothiazide (Hydrochlorothiazide 25 Mg Tablet) 25 mg PO DAILY [facility] Last Admin: 10/04/20 17:12 Dose: 25 mg Documented by: Sodium Chloride () 250 mls @ 15 mls/hr IV .[id number] PRN PRN Reason: Saline Flush Sodium Chloride () 250 mls @ 15 mls/hr IV .[id number] PRN PRN Reason: Additional IVPB Infusion Insulin Human Lispro (Insulin Lispro 100 Unit/Ml Insuln.Pen) 0 unit SC [facility]; Protocol Last Admin: 10/05/20 06:34 Dose: 1 units Documented by: Ketorolac Tromethamine (Ketorolac 15 Mg/Ml Vial) 15 mg IV Q6H PRN PRN PRN Reason: Pain Score 1-5 Stop: 10/06/20 06:40 Last Admin: 10/04/20 19:25 Dose: 15 mg Documented by: Lactobacillus Acidophilus (Lactobacillus Acidophilus) 1 tablet PO BID [facility] Last Admin: 10/04/20 18:28 Dose: 1 tablet Documented by: Lisinopril (Lisinopril 40 Mg Tablet) 40 mg PO DAILY [facility] Morphine Sulfate (Morphine 2 Mg/Ml Syringe) 2 - 4 mg IV Q2H PRN PRN PRN Reason: Pain Score 6-10 Morphine Sulfate (Morphine 4 Mg/Ml Syringe) 2 - 4 mg IV Q2H PRN PRN PRN Reason: Pain Score 6-10 Non-Formulary Medication (Insulin Lispro Protamin/Lispro [Humalog Mix 50-50 Kwikpen]) 20 unit SC TID [facility] Ondansetron HCl (Ondansetron 4 Mg/2 Ml Vial) 4 mg IV Q8H PRN PRN PRN Reason: NAUSEA Oxycodone HCl (Oxycodone 5 Mg Tablet) 5 - 10 mg PO Q4H PRN PRN PRN Reason: Pain Score 4-10 Pantoprazole Sodium (Pantoprazole Sodium 20 Mg Tablet) 20 mg PO DAILY PRN PRN Reason: HEARTBURN Promethazine HCl (Promethazine 25 Mg/Ml Syringe) 12.5 mg IM Q6H PRN PRN; Protocol PRN Reason: NAUSEA/VOMITING Senna/Docusate Sodium (Senna/Docusate Sodium 1 Tablet) 2 tablet PO BID [facility] Last Admin: 10/04/20 21:18 Dose: 2 tablet Documented by: Sodium Chloride (0.9% Saline Lock 10 Ml Syringe) 10 - 40 ml IV UD PRN PRN Reason: SALINE FLUSH Trimethoprim (Trimethoprim 100 Mg Tablet) 100 mg PO DAILY@1900 [facility] Last Admin: 10/04/20 18:28 Dose: 100 mg Documented by: Medical Necessity - Tobacco Use Smoking Status: Never smoker Tobacco Use: Non-smoker Assessment/Plan All Active Problems (Last Reviewed 08/24/19 @ 12:[address] 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 Hospitalist service was consulted for management of postoperative medical comorbidities 1. 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 Casillas. Patient postoperative orders regarding pain management DVT prophylaxis and PT OT as addressed by primary service 2. Hypertension - Blood pressure controlled, home medications continued with dose adjustment as needed 3. Diabetes mellitus type 2 ?Oral agents held please on Accu-Cheks before meals and at bedtime with sliding scale coverage 4. GERD ?On PPI 5. Recurrent UTIs ?Patient is on prophylactic treatment with trimethoprim 6. DVT prophylaxis deferred to primary service 7. Advance planning; did discuss with the patient regarding advanced directives as well as CODE STATUS. Did explain the various scenarios involved ( FULL CODE, DNR CCA, DNR CCA with no intubation, and DNR CC and what each meant) patient elected full code with CPR and intubation if warranted. Order was placed. Time spent on discussion 18 minutes. Inpatient E&M: 38783 Subs Hosp L2 Procedures: 32828 Advncd Care Plan 30 Min
--- NOTE | 2020-10-05 09:27 | CASEMGMT ---
Addendum entered by Maren Mcknight 10/05/20 09:39: Patient was provided a list of SNF providers including quality and resource use data and consistent with the patient?s preferred geographic region, medical needs, and insurance network. The patient?s preferred provider is [facility]. Original Note: Social Work Assessment Referral Date: 10/04/2020 Date of Assessment: 10/05/2020 Reason for consult: TCU Informant: SW Personal Status: SW met with pt to complete initial assessment. SW introduced self and role at [facility]. Pt is alert and orientated x3. Living Arrangements: Pt states she lives with her in a one story home with four steps to enter. Pt states she has rails on the right side. DME: Cane, Walker, Wheelchair PCP: Dr. Quigley Pharmacy: [facility] ADLs: Independent, states she doesn't drive but her is able to Substance Abuse Hx: Pt denied Mental Health Hx: Pt denied HHC: Pt states she used to have HHC in the past, states it was an agency through [place] [facility]: Denied, pt then confirms she's been to TCU in the past SW spoke with pt regarding discharge plans. Pt confirms she wishes to discharge to TCU. SW explained that TCU is able to accept pt when pt is medically ready. Pt states understanding, denied additional needs or concerns at this time. SW reviewed chart. Pt had COVID test on the 10/03/2020, had surgery on 10/04/2020, will need another COVID test. SABINE updated charge nurse. SABINE placed a call to Bonnie in TCU, confirms pt will need another COVID test and TCU is able to accept pt once pt is medically cleared. Plan: TCU once medically cleared Maren Mcknight [employer] C[employer]IER, RN TELEHEALTH
[2020-10-05] MEDS: oxyCODONE 5 MG Tablet PO ×3 (10:04→22:01)
[2020-10-05] MEDS: Ensure Surgery 237 ML LIQUID PO (10:25)
[2020-10-05] MEDS: Aspirin 81 MG TAB.CHEW PO ×2 (10:25→17:30)
[2020-10-05] MEDS: Folic Acid 1 MG Tablet PO (10:27)
[2020-10-05] MEDS: hydroCHLOROthiazide 25 MG Tablet PO (10:28)
[2020-10-05] MEDS: Lisinopril 40 MG Tablet PO (10:28)
[2020-10-05] MEDS: Doxycycline 100 MG CAPSULE PO ×2 (10:28→22:01)
[2020-10-05 11:50] LABS: Bedside Glucose 289 mg/dL (70-110)
[2020-10-05] MEDS: Ferrous Gluconate 324 MG Tablet PO (13:10)
[2020-10-05] MEDS: Trimethoprim 100 MG Tablet PO (17:30)
[2020-10-05 18:41] LABS: Bedside Glucose 218 mg/dL (70-110)
--- NOTE | 2020-10-05 18:54 | NURSING ---
reviewed and agree with all charting by WILLAM Kinsey
[2020-10-05 22:35] LABS: Bedside Glucose 138 mg/dL (70-110)
[2020-10-05] MEDS: Ketorolac 15 MG/ML Vial IV (22:59)
[2020-10-06 02:00] VITALS: BP 141/83; PULSE 70; RESP 18; TEMP 36.8; O2SAT 96
[2020-10-06] MEDS: Acetaminophen 500 MG Tablet 1000 MG PO (05:28)
[2020-10-06] MEDS: oxyCODONE 5 MG Tablet PO (05:29)
[2020-10-06 06:36] LABS: Hematocrit 27.3 % (37-47); Hemoglobin 8.9 g/dL (12.0-15.0); Mean Corp Hgb Conc 32.6 g/dL (32-36); Mean Corpuscular Hgb 28.2 pg (27.0-32.0); Mean Corpuscular Volume 86.4 fL (81-99); Mean Platelet Vol. 9.5 fl (6.2-12.0); Platelet Count 158 K/mm3 (150-450); RBC Distribution Width CV 15.7 % (11.6-14.6); RBC Distribution Width SD 49.6 fl (35.1-43.9); Red Blood Count 3.16 M/mm3 (4.2-5.4)
--- NOTE | 2020-10-06 06:46 | PN.ORTHO_ITS ---
Subjective: The patient was sitting in bed upon examination. Patient denies any chest pain, shortness of breath, dizziness, lightheadedness, nausea or vomiting, or calf pain. Pain is controlled on medications. No adverse overnight events. Patient states she tolerated physical therapy well. She did have some pain after therapy but that is better today. Plan is for patient to go to the transitional care unit when medically stable. Objective: Vital signs stable and afebrile. Patient is able to plantarflex and dorsiflex actively. Sensation is intact to light touch to saphenous, sural, superficial and deep peroneal, and tibial distribution. There is stable drainage from yesterday over the proximal dressing with remaining dressing is clean dry and intact. Negative Homans bilaterally, negative signs and symptoms of DVT. - Physical Exam Vitals/I&O's: Vital Signs Temp Pulse Resp BP Pulse Ox 98.2 F 70 18 141/83 H 96 10/06/20 02:00 10/06/20 02:00 10/06/20 02:00 10/06/20 02:00 10/06/20 02:00 Oxygen Flow Rate (L/min) 6 Oxygen Delivery Method Room Air Weight: 81.9 kg Body Mass Index (BMI) 29.1 Intake and Output for Last 24 Hours 10/04/20 10/05/20 10/06/20 23:59 23:59 23:59 Intake Total 5714.17 / 5714.17 2046.75 / 2046.75 Output Total 950 / 950 1800 / 1800 400 / 400 Balance 4764.17 / 4764.17 246.75 / 246.75 -400 / -400 General: Alert, Oriented x3, Cooperative, No apparent distress Microbiology Past 72 Hours 10/04/20 Unknown Tissue - Knee Gram Stain - Final 10/04/20 Unknown Tissue - Knee Wound Culture - Preliminary No growth-Final to follow 10/04/20 10:50 Tissue - Knee Gram Stain - Final 10/04/20 10:50 Tissue - Knee Wound Culture - Preliminary No growth-Final to follow 10/04/20 10:45 Tissue - Knee Gram Stain - Final 10/04/20 10:45 Tissue - Knee Wound Culture - Preliminary No growth-Final to follow 10/05/20 10:50 Mucosa - Nasopharyngeal SARS-CoV-2 Antigen (Rapid) - Final 10/03/20 09:12 Interface Orders SARS-CoV-2 Antigen (Rapid) - Final Laboratory Results 10/05/20 06:00: Sodium 140, Potassium 4.9, Chloride 107, Carbon Dioxide 27.0, Anion Gap 6, BUN 16, Creatinine 1.15 H, Estim Creat Clear Calc 39.57, Est GFR (MDRD) Af Amer 59 L, Est GFR (MDRD) Non-Af 49 L, BUN/Creatinine Ratio 13.9, Glucose 144 H, Calcium 8.7 10/05/20 11:43: POC Glucose 289 H 10/05/20 17:22: POC Glucose 218 H 10/05/20 22:00: POC Glucose 138 H 10/06/20 06:30: WBC 11.0, RBC 3.16 L, Hgb 8.9 L, Hct 27.3 L, MCV 86.4, MCH 28.2, MCHC 32.6, RDW Std Deviation 49.6 H, RDW Coeff of Rainer 15.7 H, Plt Count 158, MPV 9.5 10/06/20 06:30: Sodium Pending, Potassium Pending, Chloride Pending, Carbon Dioxide Pending, Anion Gap Pending, BUN Pending, Creatinine Pending, Est GFR (MDRD) Af Amer Pending, Est GFR (MDRD) Non-Af Pending, BUN/Creatinine Ratio Pending, Glucose Pending, Calcium Pending, Magnesium Pending Current Medications Acetaminophen (Acetaminophen 500 Mg Tablet) 1,000 mg PO Q8 [facility] Last Admin: 10/06/20 05:28 Dose: 1,000 mg Documented by: Aspirin (Aspirin 81 Mg Tab.Chew) 81 mg PO BIDCM [facility] Last Admin: 10/05/20 17:30 Dose: 81 mg Documented by: Cholecalciferol (Cholecalciferol (Vit D3) 1,000 Unit (25mcg)) 2,000 unit PO BI DCM [facility] Last Admin: 10/05/20 17:31 Dose: 2,000 unit Documented by: Doxycycline Monohydrate (Doxycycline 100 Mg Capsule) 100 mg PO BID [facility] Last Admin: 10/05/20 22:01 Dose: 100 mg Documented by: Enteral Nutritional Formula (Ensure Surgery 237 Ml Liquid) 237 ml PO TIDCM [facility] Last Admin: 10/05/20 17:39 Dose: Not Given Documented by: Ferrous Gluconate (Ferrous Gluconate 324 Mg Tablet) 324 mg PO DAILY@1200 [facility] Last Admin: 10/05/20 13:10 Dose: 324 mg Documented by: Folic Acid (Folic Acid 1 Mg Tablet) 1 mg PO DAILY@0800 [facility] Last Admin: 10/05/20 10:27 Dose: 1 mg Documented by: Hydrochlorothiazide (Hydrochlorothiazide 25 Mg Tablet) 25 mg PO DAILY [facility] Last Admin: 10/05/20 10:28 Dose: 25 mg Documented by: Sodium Chloride () 250 mls @ 15 mls/hr IV .[id number] PRN PRN Reason: Saline Flush Sodium Chloride () 250 mls @ 15 mls/hr IV .[id number] PRN PRN Reason: Additional IVPB Infusion Insulin Human Lispro (Insulin Lispro 100 Unit/Ml Insuln.Pen) 0 unit SC [facility]; Protocol Last Admin: 10/05/20 22:02 Dose: Not Given Documented by: Insulin Lispro Protam/Lispro Human (Insulin Npl/Insulin Lispro 100 Unit/Ml Ml) 14 unit SQ BREAKFAST [facility] Insulin Lispro Protam/Lispro Human (Insulin Npl/Insulin Lispro 100 Unit/Ml Ml) 14 unit SQ LUNCH [facility] Insulin Lispro Protam/Lispro Human (Insulin Npl/Insulin Lispro 100 Unit/Ml Ml) 22 unit SQ DINNER [facility] Last Admin: 10/05/20 17:35 Dose: 22 unit Documented by: Lactobacillus Acidophilus (Lactobacillus Acidophilus) 1 tablet PO BID [facility] Last Admin: 10/05/20 17:30 Dose: 1 tablet Documented by: Lisinopril (Lisinopril 40 Mg Tablet) 40 mg PO DAILY [facility] Last Admin: 10/05/20 10:28 Dose: 40 mg Documented by: Morphine Sulfate (Morphine 2 Mg/Ml Syringe) 2 - 4 mg IV Q2H PRN PRN PRN Reason: Pain Score 6-10 Morphine Sulfate (Morphine 4 Mg/Ml Syringe) 2 - 4 mg IV Q2H PRN PRN PRN Reason: Pain Score 6-10 Ondansetron HCl (Ondansetron 4 Mg/2 Ml Vial) 4 mg IV Q8H PRN PRN PRN Reason: NAUSEA Oxycodone HCl (Oxycodone 5 Mg Tablet) 5 - 10 mg PO Q4H PRN PRN PRN Reason: Pain Score 4-10 Last Admin: 10/06/20 05:29 Dose: 10 mg Documented by: Pantoprazole Sodium (Pantoprazole Sodium 20 Mg Tablet) 20 mg PO DAILY PRN PRN Reason: HEARTBURN Promethazine HCl (Promethazine 25 Mg/Ml Syringe) 12.5 mg IM Q6H PRN PRN; Protocol PRN Reason: NAUSEA/VOMITING Senna/Docusate Sodium (Senna/Docusate Sodium 1 Tablet) 2 tablet PO BID [facility] Last Admin: 10/05/20 21:02 Dose: Not Given Documented by: Sodium Chloride (0.9% Saline Lock 10 Ml Syringe) 10 - 40 ml IV UD PRN PRN Reason: SALINE FLUSH Trimethoprim (Trimethoprim 100 Mg Tablet) 100 mg PO DAILY@1900 [facility] Last Admin: 10/05/20 17:30 Dose: 100 mg Documented by: Medical Necessity - Tobacco Use Smoking Status: Never smoker Tobacco Use: Non-smoker Assessment/Plan All Active Problems (Last Reviewed 08/24/19 @ 12:[address] 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 S/P right knee removal antibiotic spacer to a total knee arthroplasty with cortical fracture anterior medial tibia POD #2 2. Continue Pain Medications: Tylenol, oxycodone, meloxicam 3. DVT Prophylaxis: Take 81 mg aspirin twice daily for 4 weeks postoperatively for DVT prophylaxis 4. PT/OT: Patient will be toe-touch weightbearing for the first 2 weeks. This will be followed closely with x-rays and possible transition to 50% weightbearing at her 2-week follow-up. Weightbearing progression will be based on clinical exam and x-rays. 5. H & H: 8.9/27.3, asymptomatic. Postoperative anemia secondary to acute blood loss from surgery without any intra operative complications. 6. Encouraged Incentive Spirometry 7. Continue with antibiotics while following cultures: Currently with no growth or organisms seen. She is on doxycycline for 1 week postoperatively 8. Continue postoperative medical management per medicine 9. Disposition: It does appear that patient has approval to go to the transitional care unit when medically stable. I do feel at this time patient is medically stable from orthopedic standpoint. Patient will plan on discharge today to the transitional care unit. Prescriptions will be attached to chart. She will follow-up per postop instructions. I have reviewed the [place] Automated Rx Reporting System (OARRS) report for this patient for refill pattern and other prescriber involvement as part of the appropriate surveillance for the provision of acute and chronic controlled medications. The report was requested and reviewed on the date of this entry and was considered in the prescribing process.
--- NOTE | 2020-10-06 06:54 | PCM.DC.TKR ---
Discharge Diet: No Restrictions Discharge Activity: May Not Drive May shower in (days): 1 - Okay to shower if dressing is intact to skin. Turn dressing away from water. Do not submerge underwater for 6 weeks postoperatively. Ice area for (Minutes): 20 - every hour while awake. Weight Bearing Status: Toe touch weight bearing - With walker Elevate: Operative Extremity Additional Activity Instructions:: Wear elastic stockings for 2 weeks after your surgery. Call your doctor if your incision/area has: Continuous Slow Oozing, Sudden Increased Bleeding, Increased Pain/ Swelling, Increased Redness, Foul Smelling Discharge Call your doctor if you observe: Fever of 101 or Higher, Coldness, Increased Pain, Numbness or Tingling, Change in Color, Calf discomfort, Uncontrolled pain Remove Dressing in (days):: 3 - Okay to remove Mepilex dressing on October 09, 2019. Do not use any tape on the skin Additional Instructions: Follow [facility] Post-op Instructions. Once postoperative dressing has been removed only use gentle soap and water over the incision. Do not use any ointments, Neosporin, salves, alcohol pads over the incision for 6 weeks postoperatively. Do not submerge underwater for 6 weeks postoperatively. Allergies/Adverse Reactions: Allergies ciprofloxacin Allergy (Severe, Verified 10/04/20 07:51) impairment of motor skills Sulfa (Sulfonamide Antibiotics) Allergy (Unknown, Verified 10/04/20 15:27) unknown burning metformin Adverse Reaction (Intermediate, Verified 10/04/20 07:51) loose stool, bladder infections sitagliptin [From Janumet] Adverse Reaction (Intermediate, Verified 10/04/20 07:51) loose stool batroxobin Adverse Reaction (Unknown, Verified 10/04/20 07:51) unknown exenatide [From Byetta] Adverse Reaction (Unknown, Verified 10/04/20 07:51) unknown nizatidine [From Axid] Adverse Reaction (Unknown, Verified 10/04/20 07:51) unknown sertraline [From Zoloft] Adverse Reaction (Unknown, Verified 10/04/20 07:51) unknown simvastatin [From Zocor] Adverse Reaction (Unknown, Verified 10/04/20 07:51) unknown trandolapril [From Mavik] Adverse Reaction (Unknown, Verified 10/04/20 07:51) unknown betaxolol Adverse Reaction (Verified 10/04/20 07:51) Other doxazosin Adverse Reaction (Verified 10/04/20 07:51) Other olmesartan [From Benicar] Adverse Reaction (Verified 10/04/20 07:51) Diarrhea Medications to take at Discharge hydrochlorothiazide 25 mg tablet 25 mg PO DAILY #30 tab 06/25/19 lisinopril 40 mg tablet 40 mg PO DAILY #90 tab 06/25/19 calcium carbonate 500 mg (1,250 mg)-vitamin D3 125 unit tablet 1 tab PO BID 07/20/19 cholecalciferol (vitamin D3) 50 mcg (2,000 unit) capsule 2,000 unit PO BID 07/20/19 lactobacillus combination no.8 3 billion cell capsule 3,000 mmu cells PO BID 07/20/19 omeprazole magnesium 20 mg tablet,delayed release 20 mg PO DAILY PRN 07/20/19 trimethoprim 100 mg tablet 100 mg PO DINNER 07/20/19 glimepiride 4 mg tablet 4 mg PO BID #180 tab 08/24/19 Cyanocobalamin (Vitamin B-12) [Vitamin B-12] 1,000 mcg PO DAILY 06/14/20 Calcium Carbonate [Tums] 500 mg PO Q4H PRN PRN tab 06/30/20 Cranberry Fruit Concentrate [Azo Cranberry] 250 mg PO BID 08/30/20 Folic Acid 1 mg PO DAILY@0800 08/30/20 Menthol/Lanolin/Calamine/Znox [Calmoseptine Ointment] 1 applic TOPICAL DAILY PRN 08/30/20 [place]-3 Fatty Acids/Fish Oil [Fish Oil 1,000 mg Capsule] 1 ea PO DAILY 08/30/20 Ferrous Gluconate 324 mg PO DAILY 10/03/20 Aspirin [Aspirin, Baby] 81 mg PO BIDCM tab.chew 10/06/20 Doxycycline 100 mg PO BID 12 Days cap 10/06/20 Oxycodone [Oxyir] 5 - 10 mg PO Q4H PRN PRN 5 Days #60 tab 10/06/20 Senna/Docusate Sodium [Senokot-S] 2 tab PO BID tab 10/06/20 The following prescriptions were given: Oxycodone [Oxyir] 5 - 10 mg PO Q4H PRN PRN 5 Days #60 tab PRN Reason: Pain Score 4-10 Prescription Printed Primary Care Physician: Pipe Quigley MD [Primary Care Provider] - Test Results: Test results from this visit will be discussed in further detail at your follow-up appointment, if applicable. Please Follow Up With: Dontrell Melendrez PA-C When: 10/18/20 @ 11:00 am
[2020-10-06 07:10] LABS: Anion Gap 6 (5-15); BUN 15 mg/dL (7-18); BUN/Creat Ratio 13.6 RATIO (10-20); Calcium,Total 8.2 mg/dL (8.5-10.1); Chloride 104 mmol/L (98-107); EST Glomerular Filtration Rate 51 mL/min (>60); Est Glom Filt Rate - Afr Amer 62 mL/min (>60); Estimated Creatinine Clearance 41.37 ml/min; Glucose 170 mg/dL (74-106); Magnesium 1.8 mg/dL (1.6-2.6); Potassium 4.1 mmol/L (3.5-5.1); Sodium Level 138 mmol/L (136-145)
--- NOTE | 2020-10-06 07:35 | PN_ITS ---
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 Hospitalist service was consulted for management of postoperative medical comorbidities 10/06/2020; patient seen has tolerated physical therapy well so far plan for patient to be discharged to the transitional care unit Objective: GENERAL: cooperative HEENT: Atraumatic; EYES; Anicteric, Normal Conjunctiva NECK; supple, normal thyroid, RESPIRATORY: Diminished to auscultation CARDIOVASCULAR: Regular S1 S2, GI: soft, normoactive bowel sounds, : No Renal angle tenderness; EXTREMITIES: No edema, no clubbing, MUSCULOSKELETAL: Right knee in surgical dressing NEURO: Awake; no lateralizing signs. SKIN: No Rash PSYCH; Flat affect Vitals/I&O's: Vital Signs Temp Pulse Resp BP Pulse Ox 98.2 F 70 18 141/83 H 96 10/06/20 02:00 10/06/20 02:00 10/06/20 02:00 10/06/20 02:00 10/06/20 02:00 Oxygen Flow Rate (L/min) 6 Oxygen Delivery Method Room Air Weight: 81.9 kg Body Mass Index (BMI) 29.1 Intake and Output for Last 24 Hours 10/04/20 10/05/20 10/06/20 23:59 23:59 23:59 Intake Total 5714.17 / 5714.17 2046.75 / 2046.75 Output Total 950 / 950 1800 / 1800 400 / 400 Balance 4764.17 / 4764.17 246.75 / 246.75 -400 / -400 Microbiology Past 72 Hours 10/04/20 Unknown Tissue - Knee Gram Stain - Final 10/04/20 Unknown Tissue - Knee Wound Culture - Preliminary No growth-Final to follow 10/04/20 10:50 Tissue - Knee Gram Stain - Final 10/04/20 10:50 Tissue - Knee Wound Culture - Preliminary No growth-Final to follow 10/04/20 10:45 Tissue - Knee Gram Stain - Final 10/04/20 10:45 Tissue - Knee Wound Culture - Preliminary No growth-Final to follow 10/05/20 10:50 Mucosa - Nasopharyngeal SARS-CoV-2 Antigen (Rapid) - Final 10/03/20 09:12 Interface Orders SARS-CoV-2 Antigen (Rapid) - Final Laboratory Results 10/05/20 11:43: POC Glucose 289 H 10/05/20 17:22: POC Glucose 218 H 10/05/20 22:00: POC Glucose 138 H 10/06/20 06:30: WBC 11.0, RBC 3.16 L, Hgb 8.9 L, Hct 27.3 L, MCV 86.4, MCH 28.2, MCHC 32.6, RDW Std Deviation 49.6 H, RDW Coeff of Rainer 15.7 H, Plt Count 158, MPV 9.5 10/06/20 06:30: Sodium 138, Potassium 4.1, Chloride 104, Carbon Dioxide 28.0, Anion Gap 6, BUN 15, Creatinine 1.10 H, Estim Creat Clear Calc 41.37, Est GFR (MDRD) Af Amer 62, Est GFR (MDRD) Non-Af 51 L, BUN/Creatinine Ratio 13.6, Glucose 170 H, Calcium 8.2 L, Magnesium 1.8 Current Medications Acetaminophen (Acetaminophen 500 Mg Tablet) 1,000 mg PO Q8 [facility] Last Admin: 10/06/20 05:28 Dose: 1,000 mg Documented by: Aspirin (Aspirin 81 Mg Tab.Chew) 81 mg PO BIDCM [facility] Last Admin: 10/05/20 17:30 Dose: 81 mg Documented by: Cholecalciferol (Cholecalciferol (Vit D3) 1,000 Unit (25mcg)) 2,000 unit PO BIDCM [facility] Last Admin: 10/05/20 17:31 Dose: 2,000 unit Documented by: Doxycycline Monohydrate (Doxycycline 100 Mg Capsule) 100 mg PO BID [facility] Last Admin: 10/05/20 22:01 Dose: 100 mg Documented by: Enteral Nutritional Formula (Ensure Surgery 237 Ml Liquid) 237 ml PO TIDCM [facility] Last Admin: 10/06/20 07:25 Dose: Not Given Documented by: Ferrous Gluconate (Ferrous Gluconate 324 Mg Tablet) 324 mg PO DAILY@1200 [facility] Last Admin: 10/05/20 13:10 Dose: 324 mg Documented by: Folic Acid (Folic Acid 1 Mg Tablet) 1 mg PO DAILY@0800 [facility] Last Admin: 10/05/20 10:27 Dose: 1 mg Documented by: Hydrochlorothiazide (Hydrochlorothiazide 25 Mg Tablet) 25 mg PO DAILY [facility] Last Admin: 10/05/20 10:28 Dose: 25 mg Documented by: Sodium Chloride () 250 mls @ 15 mls/hr IV .[id number] PRN PRN Reason: Saline Flush Sodium Chloride () 250 mls @ 15 mls/hr IV .[id number] PRN PRN Reason: Additional IVPB Infusion Insulin Human Lispro (Insulin Lispro 100 Unit/Ml Insuln.Pen) 0 unit SC ACHS [facility]; Protocol Last Admin: 10/05/20 22:02 Dose: Not Given Documented by: Insulin Lispro Protam/Lispro Human (Insulin Npl/Insulin Lispro 100 Unit/Ml Ml) 14 unit SQ BREAKFAST [facility] Insulin Lispro Protam/Lispro Human (Insulin Npl/Insulin Lispro 100 Unit/Ml Ml) 14 unit SQ LUNCH [facility] Insulin Lispro Protam/Lispro Human (Insulin Npl/Insulin Lispro 100 Unit/Ml Ml) 22 unit SQ DINNER [facility] Last Admin: 10/05/20 17:35 Dose: 22 unit Documented by: Lactobacillus Acidophilus (Lactobacillus Acidophilus) 1 tablet PO BID [facility] Last Admin: 10/05/20 17:30 Dose: 1 tablet Documented by: Lisinopril (Lisinopril 40 Mg Tablet) 40 mg PO DAILY [facility] Last Admin: 10/05/20 10:28 Dose: 40 mg Documented by: Morphine Sulfate (Morphine 2 Mg/Ml Syringe) 2 - 4 mg IV Q2H PRN PRN PRN Reason: Pain Score 6-10 Morphine Sulfate (Morphine 4 Mg/Ml Syringe) 2 - 4 mg IV Q2H PRN PRN PRN Reason: Pain Score 6-10 Ondansetron HCl (Ondansetron 4 Mg/2 Ml Vial) 4 mg IV Q8H PRN PRN PRN Reason: NAUSEA Oxycodone HCl (Oxycodone 5 Mg Tablet) 5 - 10 mg PO Q4H PRN PRN PRN Reason: Pain Score 4-10 Last Admin: 10/06/20 05:29 Dose: 10 mg Documented by: Pantoprazole Sodium (Pantoprazole Sodium 20 Mg Tablet) 20 mg PO DAILY PRN PRN Reason: HEARTBURN Promethazine HCl (Promethazine 25 Mg/Ml Syringe) 12.5 mg IM Q6H PRN PRN; Protocol PRN Reason: NAUSEA/VOMITING Senna/Docusate Sodium (Senna/Docusate Sodium 1 Tablet) 2 tablet PO BID [facility] Last Admin: 10/05/20 21:02 Dose: Not Given Documented by: Sodium Chloride (0.9% Saline Lock 10 Ml Syringe) 10 - 40 ml IV UD PRN PRN Reason: SALINE FLUSH Trimethoprim (Trimethoprim 100 Mg Tablet) 100 mg PO DAILY@1900 [facility] Last Admin: 10/05/20 17:30 Dose: 100 mg Documented by: Medical Necessity - Tobacco Use Smoking Status: Never smoker Tobacco Use: Non-smoker Assessment/Plan All Active Problems (Last Reviewed 08/24/19 @ 12:[address] 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 Hospitalist service was consulted for management of postoperative medical comorbidities 1. 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 Casillas. Patient postoperative orders regarding pain management DVT prophylaxis and PT OT as addressed by primary service -10/06/2020; patient seen has tolerated physical therapy well so far plan for patient to be discharged to the transitional care unit 2. Hypertension - Blood pressure controlled, home medications continued with dose adjustment as needed 3. Diabetes mellitus type 2 ?Oral agents held please on Accu-Cheks before meals and at bedtime with sliding scale coverage 4. GERD ?On PPI 5. Recurrent UTIs ?Patient is on prophylactic treatment with trimethoprim 6. DVT prophylaxis deferred to primary service Inpatient E&M: [id number] Subs Hosp L2
[2020-10-06] MEDS: Lisinopril 40 MG Tablet PO (07:49)
[2020-10-06] MEDS: Aspirin 81 MG TAB.CHEW PO (07:49)
[2020-10-06] MEDS: hydroCHLOROthiazide 25 MG Tablet PO (07:50)
[2020-10-06] MEDS: Doxycycline 100 MG CAPSULE PO (07:50)
[2020-10-06] MEDS: Folic Acid 1 MG Tablet PO (07:51)
[2020-10-06] MEDS: Insulin Lispro 100 UNIT/ML INSULN.PEN SC (07:52)
[2020-10-06 07:59] VITALS: BP 116/60; PULSE 60; RESP 18; TEMP 36.8; O2SAT 96
--- NOTE | 2020-10-06 08:55 | CASEMGMT ---
Addendum entered by Maren Mcknight 10/06/20 09:42: Completed SNF paperwork received. Original in SNF folder and copy on pt's chart. Original Note: Social Work Note Pt is discharging to TCU today. PA to fax over completed SNF paperwork. SW placed a call to Bonnie in TCU and updated her pt will be discharged to TCU today. Plan: TCU today Maren Mcknight [employer], [employer]
[2020-10-06] MEDS: Ondansetron 4 MG/2 ML Vial IV (09:06)
[2020-10-06] MEDS: 0.9% Saline Lock 10 ML Syringe IV (09:06)
[2020-10-06] MEDS: Pantoprazole Sodium 20 MG Tablet PO (09:07)
[2020-10-06] MEDS: Ketorolac 15 MG/ML Vial IV (09:08)
--- NOTE | 2020-10-06 10:53 | PHA.DC.MR ---
Pharmacy Service has performed discharge medication reconciliation for this patient. The patient's discharge medication list was reviewed for discrepancies and discrepancies were resolved. Home Medications hydrochlorothiazide 25 mg tablet 25 mg PO DAILY #30 tab 06/25/19 lisinopril 40 mg tablet 40 mg PO DAILY #90 tab 06/25/19 calcium carbonate 500 mg (1,250 mg)-vitamin D3 125 unit tablet 1 tab PO BID 07/20/19 cholecalciferol (vitamin D3) 50 mcg (2,000 unit) capsule 2,000 unit PO BID 07/20/19 lactobacillus combination no.8 3 billion cell capsule 3,000 mmu cells PO BID 07/20/19 omeprazole magnesium 20 mg tablet,delayed release 20 mg PO DAILY PRN 07/20/19 trimethoprim 100 mg tablet 100 mg PO DINNER 07/20/19 glimepiride 4 mg tablet 4 mg PO BID #180 tab 08/24/19 Cyanocobalamin (Vitamin B-12) [Vitamin B-12] 1,000 mcg PO DAILY 06/14/20 Calcium Carbonate [Tums] 500 mg PO Q4H PRN PRN tab 06/30/20 Cranberry Fruit Concentrate [Azo Cranberry] 250 mg PO BID 08/30/20 Folic Acid 1 mg PO DAILY@0800 08/30/20 Menthol/Lanolin/Calamine/Znox [Calmoseptine Ointment] 1 applic TOPICAL DAILY PRN 08/30/20 [place]-3 Fatty Acids/Fish Oil [Fish Oil 1,000 mg Capsule] 1 ea PO DAILY 08/30/20 Ferrous Gluconate 324 mg PO DAILY 10/03/20 Aspirin [Aspirin, Baby] 81 mg PO BIDCM tab.chew 10/06/20 Doxycycline 100 mg PO BID 12 Days cap 10/06/20 Oxycodone [Oxyir] 5 - 10 mg PO Q4H PRN PRN 5 Days #60 tab 10/06/20 Senna/Docusate Sodium [Senokot-S] 2 tab PO BID tab 10/06/20
[2020-10-06 11:26] LABS: Bedside Glucose 198 mg/dL (70-110)
== END 2020-10-06 12:52 | disposition skilled nursing facility (03) | DRG 488 ==
LOC: ACINP 07:09 → MS3 10:39
PROVIDERS: Anesthesiology; Admitting Provider Specialist; PCP Family Medicine; Visit Provider Internal Medicine
PROC: 0SPC0EZ Removal of Articulating Spacer from Right Knee Joint, Open Approach (ICD-10-PCS; principal; 2020-10-04 10:20)
DX: Z47.33 Aftercare following explantation of knee joint prosthesis (principal); D62 Acute posthemorrhagic anemia; M96.671 Fracture of tibia or fibula following insertion of orthopedic implant, joint prosthesis, or bone plate, right leg; Y92.9 Unspecified place or not applicable; E11.9 Type 2 diabetes mellitus without complications; I10 Essential (primary) hypertension; K21.9 Gastro-esophageal reflux disease without esophagitis; Y83.1 Surgical operation with implant of artificial internal device as the cause of abnormal reaction of the patient, or of later complication, without mention of misadventure at the time of the procedure; Z66 Do not resuscitate; Z72.0 Tobacco use; Z79.82 Long term (current) use of aspirin; Z87.440 Personal history of urinary (tract) infections; Z90.710 Acquired absence of both cervix and uterus; H91.90 Unspecified hearing loss, unspecified ear; M19.90 Unspecified osteoarthritis, unspecified site; M81.0 Age-related osteoporosis without current pathological fracture
CPT/HCPCS: 36415; 73560; 80048; 82962; 83036; 83735; 85025; 85027; 85652; 86140; 87015; 87070; 87075; 87081; 87102; 87116; 87176; 87205; 87206; 87426; 97110; 97116; 97162; 97166; 97530; 97535; 99251; C1776; C9803; J7120; A4216; G0463; J2405

== ENCOUNTER 2020-10-06 13:00 | Inpatient (IN) | payer MEDICARE, OTHER, SELFPAY ==
[2020-10-04 15:27] VITALS: BMI 29.1
[2020-10-06 13:20] VITALS: BP 149/73; PULSE 73; RESP 15; RESP 18; TEMP 36.2; O2SAT 96; BMI 29.8
--- NOTE | 2020-10-06 14:15 | HP.PCM_ITS ---
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 The patient is a 75 year old Female with below past medical history significant for right prosthetic knee infection. Recently, underwent removal of right prosthetic knee with placement of antibiotic spacer, 6 weeks IV antibiotics. 10/04/2020 Orthopedics performed right knee removal nonbiodegradable antibiotic delivery system, right knee revision total knee replacement entire femur, tibia, patella implants. 10/04/2020 Adjust insulin for Diabetes Mellitus. Aspirin 81MG twice daily for DVT prophylaxis thru 11/04/2020. Postoperative course uncomplicated. 10/06/2020 Admit to TCU with debility, here for rehabilitation, strengthening, prior to discharge home with . Past Medical History Past Medical History (Chronic Problems): Chronic Problems (Last Reviewed 08/24/19 @ 12:[address] 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) Hypertension (Chronic) Hearing loss (Chronic) Osteoporosis (Chronic) Recurrent UTI (Chronic) Glaucoma (Chronic) Atrophic vaginitis (Chronic) GERD (gastroesophageal reflux disease) (Chronic) Recurrent urinary tract infection (Chronic) Diabetes mellitus type 2 in nonobese (Chronic) Diabetes (Chronic) Chronic UTI (urinary tract infection) (Chronic) Essential (primary) hypertension (Chronic) Diabetes type 2, uncontrolled (Chronic) Medical History: Medical History (Last Reviewed 08/24/19 @ 12:[address] Jeremy Harrison MD) Chronic UTI (urinary tract infection) (Chronic) N39.0 Essential (primary) hypertension (Chronic) I10 Diabetes type 2, uncontrolled (Chronic) E11.65 Glaucoma H40.9 Allergies ciprofloxacin Allergy (Severe, Verified 10/04/20 07:51) impairment of motor skills Sulfa (Sulfonamide Antibiotics) Allergy (Unknown, Verified 10/04/20 15:27) unknown burning metformin Adverse Reaction (Intermediate, Verified 10/04/20 07:51) loose stool, bladder infections sitagliptin [From Janumet] Adverse Reaction (Intermediate, Verified 10/04/20 07:51) loose stool batroxobin Adverse Reaction (Unknown, Verified 10/04/20 07:51) unknown exenatide [From Byetta] Adverse Reaction (Unknown, Verified 10/04/20 07:51) unknown nizatidine [From Axid] Adverse Reaction (Unknown, Verified 10/04/20 07:51) unknown sertraline [From Zoloft] Adverse Reaction (Unknown, Verified 10/04/20 07:51) unknown simvastatin [From Zocor] Adverse Reaction (Unknown, Verified 10/04/20 07:51) unknown trandolapril [From Mavik] Adverse Reaction (Unknown, Verified 10/04/20 07:51) unknown betaxolol Adverse Reaction (Verified 10/04/20 07:51) Other doxazosin Adverse Reaction (Verified 10/04/20 07:51) Other olmesartan [From Benicar] Adverse Reaction (Verified 10/04/20 07:51) Diarrhea Home Medications: Ambulatory Orders Medication Instructions Recorded hydrochlorothiazide 25 mg tablet 25 mg PO DAILY #30 tab 06/25/19 lisinopril 40 mg tablet 40 mg PO DAILY #90 tab 06/25/19 calcium carbonate 500 mg (1,250 1 tab PO BID 07/20/19 mg)-vitamin D3 125 unit tablet cholecalciferol (vitamin D3) 50 2,000 unit PO BID 07/20/19 mcg (2,000 unit) capsule lactobacillus combination no.8 3 3,000 mmu cells PO BID 07/20/19 billion cell capsule omeprazole magnesium 20 mg 20 mg PO DAILY PRN 07/20/19 tablet,delayed release trimethoprim 100 mg tablet 100 mg PO DINNER 07/20/19 glimepiride 4 mg tablet 4 mg PO BID #180 tab 08/24/19 Cyanocobalamin (Vitamin B-12) 1,000 mcg PO DAILY 06/14/20 [Vitamin B-12] Calcium Carbonate [Tums] 500 mg PO Q4H PRN PRN tab 06/30/20 Cranberry Fruit Concentrate [Azo 250 mg PO BID 08/30/20 Cranberry] Folic Acid 1 mg PO DAILY@0800 08/30/20 Menthol/Lanolin/Calamine/Znox 1 applic TOPICAL DAILY PRN 08/30/20 [Calmoseptine Ointment] [place]-3 Fatty Acids/Fish Oil [Fish 1 ea PO DAILY 08/30/20 Oil 1,000 mg Capsule] Ferrous Gluconate 324 mg PO DAILY 10/03/20 Aspirin [Aspirin, Baby] 81 mg PO BIDCM 10/06/20 Doxycycline 100 mg PO BID 10/06/20 Oxycodone [Oxyir] 5 - 10 mg PO Q4H PRN PRN 5 Days 10/06/20 #60 tab Senna/Docusate Sodium [Senokot-S] 2 tab PO BID 10/06/20 Surgical History: Surgical History (Last Reviewed 08/24/19 @ 12:[address] Jeremy Harrison MD) History of tonsillectomy Z90.89 H/O tubal ligation Z98.51 History of cataract surgery Z98.49 bilateral History of cholecystectomy Z90.49 1975 History of tonsillectomy Z90.89 1950 Surgical History: cataract, cholecystectomy, hysterectomy, tonsillectomy, - - bilateral tubal ligation, left knee arthroscopic surgery, initial right total knee replacement, recent right total knee replacement removal with antibiotic spacer and biodegradable antibiotic delivery system, removal right knee antibiotic spacer, revision right total knee arthroplasty. 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 Jeremy Harrison MD) Mother CVA (cerebral vascular accident) Aunt Breast cancer History Items: Heart Disease, Hypertension Paternal Family History: Family History (Last Reviewed 08/24/19 @ 12:[address] Jeremy Harrison MD) Mother CVA (cerebral vascular accident) Aunt Breast cancer History Items: - Review of Systems Constitutional: Denies: Chills, Fever, Weight Change HEENT: Denies: Head Aches, Sinus Congestion, Sinus Drainage Cardiovascular: Denies: Chest Pain, Palpitations Respiratory: Denies: Cough, Shortness of breath at rest, Sputum production Gastrointestinal: Denies: Abdominal Pain, Nausea, Vomiting Genitourinary: Denies: Dysuria Musculoskeletal: Denies: Joint Pain, Joint Tenderness Skin: Denies: Rash, Wounds Neurological: Denies: Numbness, Tingling, Focal weakness Psychiatric: Denies: Anxiety, Depression, Homicidal Ideations, Suicidal Ideations Hematologic/ Lymphatic: Denies: Easy Bruising, Easy Bleeding VTE Information - Inpt Only VTE Present on Admission: No VTE Mechan Device Prophylaxis: Knee High PAKO Hose VTE Pharm Prophylaxis ordered?: Yes Patient Problems: Active and Suspected Problems (Last Reviewed 08/24/19 @ 12:[address] Jeremy Harrison MD) Debility (Acute) - Physical Exam Vitals/I&O's: Vital Signs Temp Pulse Resp BP Pulse Ox 97.2 F L 73 15 149/73 H 96 10/06/20 13:20 10/06/20 13:20 10/06/20 13:20 10/06/20 13:20 10/06/20 13:20 Oxygen Delivery Method Room Air Weight: 83.9 kg Body Mass Index (BMI) 29.8 General: Alert, Oriented x3, Cooperative HEENT: Atraumatic, PERRLA, EOMI, Normocephalic Neck: Supple, No JVD, Negative Carotid Bruits Lungs: Clear to auscultation, Normal air movement Cardiovascular: Regular rate, No murmurs Abdomen: Bowel Sounds Present, Soft, Non Tender Extremities: No edema, Capillary Refill Less than 3 Seconds, - - Right knee dressed. Skin: No rashes, No breakdown Musculoskeletal: No Tenderness to Palpation of Joints or Extremities Neurological: Cranial nerves II-XII grossly intact Psych/Mental Status: Normal Affect, Appropriate Current Medications Aspirin (Aspirin 81 Mg Tab.Chew) [facility] Stop: 10/29/20 23:00 Calamine/Phenol (Menthol/Lanolin/Calamine/Znox 113 Gm Tube) 1 applic TOPICAL DAILY PRN; Protocol PRN Reason: RASH/TOPICAL IRRITATION Calcium Carbonate (Calcium Carbonate 500 Mg Tablet) 500 mg PO Q4H PRN PRN PRN Reason: HEARTBURN Cholecalciferol (Cholecalciferol (Vit D3) 1,000 Unit (25mcg)) 2,000 unit PO BID [facility] Cyanocobalamin (Cyanocobalamin 500 Mcg Tablet) 1,000 mcg PO DAILY [facility] Doxycycline Monohydrate (Doxycycline 100 Mg Capsule) 100 mg PO BID [facility] Ferrous Gluconate (Ferrous Gluconate 324 Mg Tablet) 324 [facility] Folic Acid (Folic Acid 1 Mg Tablet) 1 mg PO DAILY@0800 [facility] Glimepiride (Glimepiride 4 Mg Tablet) 4 [facility] Hydrochlorothiazide (Hydrochlorothiazide 25 Mg Tablet) 25 mg PO DAILY [facility] Lisinopril (Lisinopril 40 Mg Tablet) 40 mg PO DAILY [facility] Non-Formulary Medication (Calcium Carbonate-Vitamin D3) 1 tab PO BID [facility] Non-Formulary Medication (Lactobacillus Combination No.8 [Adult Probiotic]) 3,000 mmu cells PO BID [facility] Non-Formulary Medication ([place]-3 Fatty Acids/Fish Oil [Fish Oil 1,000 Mg Capsule]) 1 ea PO DAILY [facility] Non-Formulary Medication (Omeprazole Magnesium [Prilosec Otc]) 20 mg PO DAILY PRN PRN Reason: HEARTBURN Oxycodone HCl (Oxycodone 5 Mg Tablet) 5 - 10 mg PO Q4H PRN PRN PRN Reason: Pain Score 4-10 Rivaroxaban (Rivaroxaban 10 Mg Tablet) 10 mg PO DAILY@1700 [facility] Stop: 10/14/20 23:00 Senna/Docusate Sodium (Senna/Docusate Sodium 1 Tablet) tablet PO BID [facility] Trimethoprim (Trimethoprim 100 Mg Tablet) 100 mg PO DINNER [facility] Tuberculin PPD (Tuberculin,Purif.Prot.Deriv. 50 Tu/Ml Vial) 5 tu ID [id number] Stop: 10/07/20 10:01 Tuberculin PPD (Tuberculin,Purif.Prot.Deriv. 50 Tu/Ml Vial) 5 tu ID [id number] ONE Stop: 10/14/20 10:01 Assessment/Plan All Active Problems (Last Reviewed 08/24/19 @ 12:[address] Jeremy Harrison MD) Infection of right knee (Acute) Debility (Acute) 75 year old female with below past medical history of infected right prosthetic knee joint, hospitalized for removal right knee antibiotic spacer, revision right total knee replacement 10/04/2020, admitted to TCU with debility, here for rehabilitation, strengthening, prior to discharge home with . * Debility - PT/OT. * Pain - Tylenol 1000MG TID, Oxycodone 10MG Q4H PRN pain (4-10). * Bowel - Miralax 17GM daily, Senna/colace 2 tablets BID, MOM 30ML daily PRN, Dulcolax 10MG MO daily PRN. * Adult immunization - Administer Prevnar 13, Pneumovax 23, Fluzone, COVID19 vaccine as appropriate. * DVT prophylaxis - Aspirin 81MG BID thru 11/04/2020. * Calcium deficiency - Calcium D BID. * Vitamin D deficiency - D3 2000IU BID. * GERD - Pantoprazole 20MG daily, TUMS 500MG Q4H PRN. * Vitamin B12 deficiency - B12 1000MCG daily. * Right knee prosthetic joint infection status post antibiotic spacer removal, revision right total knee replacement - Doxycycline 100MG BID thru 10/11/2020, follow surgical cultures. * Iron deficiency anemia - Ferrous Gluconate 324MG daily. * Folate Deficiency - Folic Acid 1MG daily. * Diabetes Mellitus II - Glimepiride 4MG BID, follow sugar, add insulin as necessary. * Hypertension - Lisinopril 40MG daily, HCTZ 25MG daily. * GI prophylaxis - Lactobacillus 1 tablet BID. * Skin irritation - Calmoseptine topical daily. * Recurrent UTI - Trimethoprim 100MG daily.
--- NOTE | 2020-10-06 15:01 | CASEMGMT ---
Social Work Discussed code status with pt. Pt confirmed full code. No changes to MOLST form. Marcia Ayoub, FUR MACHINE OPERATOR CANINE SERVICE TEACHER
[2020-10-06] MEDS: Acetaminophen 500 MG Tablet 1000 MG PO ×2 (15:17→20:41)
[2020-10-06 16:35] LABS: Bedside Glucose 223 mg/dL (70-110)
[2020-10-06] MEDS: Glimepiride 4 MG Tablet PO (17:19)
[2020-10-06] MEDS: Calcium Carb/Vitamin D 1 TABLET Tablet PO (17:19)
[2020-10-06] MEDS: Trimethoprim 100 MG Tablet PO (17:20)
[2020-10-06] MEDS: Senna/Docusate Sodium 1 Tablet 2 TABLET PO (17:21)
[2020-10-06] MEDS: Doxycycline 100 MG CAPSULE PO (20:41)
[2020-10-07] MEDS: Senna/Docusate Sodium 1 Tablet 2 TABLET PO (05:25)
[2020-10-07] MEDS: hydroCHLOROthiazide 25 MG Tablet PO (05:26)
[2020-10-07] MEDS: Polyethylene Glycol 3350 17 GM PACKET PO (05:26)
[2020-10-07] MEDS: Lisinopril 40 MG Tablet PO (05:27)
[2020-10-07] MEDS: Cyanocobalamin 500 MCG Tablet 1000 MCG PO (05:27)
[2020-10-07] MEDS: Acetaminophen 500 MG Tablet 1000 MG PO ×3 (05:27→21:29)
[2020-10-07] MEDS: Pantoprazole Sodium 20 MG Tablet PO (05:28)
[2020-10-07 05:30] VITALS: BP 153/57; PULSE 65; RESP 18; TEMP 36.8; O2SAT 96
[2020-10-07 06:23] LABS: Absolute Lymphocyte Count 2.24 X10^3/uL (0.83-4.51); Basophil# 0.02 X10^3/uL; Basophil% 0.2 % (0-1); Eosinophil# 0.25 X10^3/uL; Eosinophils% 2.7 % (0-5); Hemoglobin 8.4 g/dL (12.0-15.0); Lymphocyte # 2.24 X10^3/ul (4.0); Lymphocyte % 24.2 % (19-41); Mean Corp Hgb Conc 31.1 g/dL (32-36); Mean Corpuscular Hgb 27.4 pg (27.0-32.0); Mean Corpuscular Volume 87.9 fL (81-99); Mean Platelet Vol. 10.5 fl (6.2-12.0); Monocyte# 0.71 X10^3/uL; Monocyte% 7.7 % (0-10); NRBC Flagged by Analyzer 0 % (0-5); Neutrophil # 5.99 X10^3/uL (2.7-7.7); Neutrophil % 64.8 % (47-70); Platelet Count 171 K/mm3 (150-450); RBC Distribution Width CV 15.9 % (11.6-14.6); RBC Distribution Width SD 51.4 fl (35.1-43.9); Red Blood Count 3.07 M/mm3 (4.2-5.4); White Blood Count 9.3 K/mm3 (4.4-11.0)
[2020-10-07] MEDS: oxyCODONE 5 MG Tablet 10 MG PO (06:32)
[2020-10-07 06:54] LABS: Anion Gap 5 (5-15); BUN 19 mg/dL (7-18); BUN/Creat Ratio 19.2 RATIO (10-20); Calcium,Total 8.9 mg/dL (8.5-10.1); Chloride 104 mmol/L (98-107); Creatinine, Serum 0.99 mg/dL (0.55-1.02); EST Glomerular Filtration Rate 58 mL/min (>60); Est Glom Filt Rate - Afr Amer 70 mL/min (>60); Estimated Creatinine Clearance 45.96 ml/min; Glucose 145 mg/dL (74-106); Sodium Level 138 mmol/L (136-145)
--- NOTE | 2020-10-07 07:58 | NURSING ---
This noted that pt's blood sugar was not obtained yet this morning, this nurse obtained blood sugar but pt had already eaten breakfast, reported to RN.
[2020-10-07 08:01] LABS: Bedside Glucose 256 mg/dL (70-110)
[2020-10-07] MEDS: Folic Acid 1 MG Tablet PO (08:46)
[2020-10-07] MEDS: Aspirin 81 MG TAB.CHEW PO ×2 (08:46→16:37)
[2020-10-07] MEDS: Calcium Carb/Vitamin D 1 TABLET Tablet PO ×2 (08:46→16:36)
[2020-10-07] MEDS: Ferrous Gluconate 324 MG Tablet PO (08:47)
[2020-10-07] MEDS: Glimepiride 4 MG Tablet PO ×2 (08:48→16:36)
[2020-10-07] MEDS: Doxycycline 100 MG CAPSULE PO ×2 (09:15→21:29)
[2020-10-07 10:00] VITALS: PULSE 56; RESP 16; O2SAT 99
[2020-10-07] MEDS: Tuberculin,Purif.prot.deriv. 50 TU/ML Vial 5 ML ID (10:17)
[2020-10-07] MEDS: Insulin Lispro 100 UNIT/ML INSULN.PEN SC (10:31)
[2020-10-07 13:38] VITALS: BP 119/48; PULSE 61; RESP 16; TEMP 36.3; O2SAT 95
--- NOTE | 2020-10-07 15:03 | NURSING ---
Pt C/O Oxyir making her sick requested a different pain medication. Dr. Mccracken updated new order to stop Oxyir and ordered 50mg of Tramadol PO q6hr for pain level of 6-10.
[2020-10-07] MEDS: traMADol 50 MG Tablet PO ×2 (15:20→21:33)
[2020-10-07] MEDS: Trimethoprim 100 MG Tablet PO (16:38)
[2020-10-07 16:51] LABS: Bedside Glucose 215 mg/dL (70-110)
[2020-10-07 21:21] LABS: Bedside Glucose 221 mg/dL (70-110)
[2020-10-08] MEDS: traMADol 50 MG Tablet PO ×3 (05:49→18:38)
[2020-10-08] MEDS: hydroCHLOROthiazide 25 MG Tablet PO (05:49)
[2020-10-08] MEDS: Lisinopril 40 MG Tablet PO (05:49)
[2020-10-08] MEDS: Pantoprazole Sodium 20 MG Tablet PO (05:50)
[2020-10-08] MEDS: Acetaminophen 500 MG Tablet 1000 MG PO ×3 (05:51→21:48)
[2020-10-08] MEDS: Cyanocobalamin 500 MCG Tablet 1000 MCG PO (05:54)
[2020-10-08 06:02] VITALS: BP 150/83; PULSE 61; RESP 18; TEMP 36.9; O2SAT 96
[2020-10-08 06:16] LABS: Bedside Glucose 149 mg/dL (70-110)
[2020-10-08 06:23] VITALS: PULSE 64; RESP 18; O2SAT 98
[2020-10-08] MEDS: Glimepiride 4 MG Tablet PO ×2 (07:47→16:45)
[2020-10-08] MEDS: Aspirin 81 MG TAB.CHEW PO ×2 (07:47→16:44)
[2020-10-08] MEDS: Folic Acid 1 MG Tablet PO (07:47)
[2020-10-08] MEDS: Ferrous Gluconate 324 MG Tablet PO (07:48)
[2020-10-08] MEDS: Calcium Carb/Vitamin D 1 TABLET Tablet PO ×2 (07:48→16:44)
[2020-10-08] MEDS: Doxycycline 100 MG CAPSULE PO ×2 (09:09→21:48)
[2020-10-08 10:41] LABS: Bedside Glucose 197 mg/dL (70-110)
[2020-10-08 14:23] VITALS: BP 154/69; PULSE 55; RESP 18; TEMP 36.8; O2SAT 97
[2020-10-08 15:55] LABS: Bedside Glucose 138 mg/dL (70-110)
[2020-10-08] MEDS: Trimethoprim 100 MG Tablet PO (16:44)
[2020-10-08 21:30] LABS: Bedside Glucose 184 mg/dL (70-110)
[2020-10-09] MEDS: traMADol 50 MG Tablet PO (01:37)
[2020-10-09 01:41] VITALS: BP 175/51; PULSE 63; RESP 16; TEMP 36.2; O2SAT 94
[2020-10-09] MEDS: Lisinopril 40 MG Tablet PO (05:14)
[2020-10-09] MEDS: Acetaminophen 500 MG Tablet 1000 MG PO ×3 (05:14→20:28)
[2020-10-09] MEDS: Pantoprazole Sodium 20 MG Tablet PO (05:14)
[2020-10-09] MEDS: hydroCHLOROthiazide 25 MG Tablet PO (05:15)
[2020-10-09] MEDS: Cyanocobalamin 500 MCG Tablet 1000 MCG PO (05:15)
[2020-10-09 06:16] LABS: Bedside Glucose 106 mg/dL (70-110)
[2020-10-09] MEDS: Aspirin 81 MG TAB.CHEW PO ×2 (08:14→17:37)
[2020-10-09] MEDS: Calcium Carb/Vitamin D 1 TABLET Tablet PO ×2 (08:14→17:37)
[2020-10-09] MEDS: Folic Acid 1 MG Tablet PO (08:14)
[2020-10-09] MEDS: Glimepiride 4 MG Tablet PO ×2 (08:14→17:36)
[2020-10-09] MEDS: Ferrous Gluconate 324 MG Tablet PO (08:15)
[2020-10-09] MEDS: Doxycycline 100 MG CAPSULE PO ×2 (09:29→20:28)
[2020-10-09 11:00] LABS: Bedside Glucose 191 mg/dL (70-110)
--- NOTE | 2020-10-09 13:35 | PCM.PN.RX ---
<Jory Kelley - Last Filed: 10/09/20 13:35> Progress Note - Pharmacy Subjective: TCU Admission Objective: Allergies ciprofloxacin Allergy (Severe, Verified 10/04/20 07:51) impairment of motor skills Sulfa (Sulfonamide Antibiotics) Allergy (Unknown, Verified 10/04/20 15:27) unknown burning metformin Adverse Reaction (Intermediate, Verified 10/04/20 07:51) loose stool, bladder infections sitagliptin [From Janumet] Adverse Reaction (Intermediate, Verified 10/04/20 07:51) loose stool batroxobin Adverse Reaction (Unknown, Verified 10/04/20 07:51) unknown exenatide [From Byetta] Adverse Reaction (Unknown, Verified 10/04/20 07:51) unknown nizatidine [From Axid] Adverse Reaction (Unknown, Verified 10/04/20 07:51) unknown sertraline [From Zoloft] Adverse Reaction (Unknown, Verified 10/04/20 07:51) unknown simvastatin [From Zocor] Adverse Reaction (Unknown, Verified 10/04/20 07:51) unknown trandolapril [From Mavik] Adverse Reaction (Unknown, Verified 10/04/20 07:51) unknown betaxolol Adverse Reaction (Verified 10/04/20 07:51) Other doxazosin Adverse Reaction (Verified 10/04/20 07:51) Other olmesartan [From Benicar] Adverse Reaction (Verified 10/04/20 07:51) Diarrhea Current Medications Generic Name Dose Route Start Last Admin Trade Name Freq PRN Reason Stop Dose Admin Acetaminophen 1,000 mg 10/06/20 22:00 10/09/20 13:07 Acetaminophen 500 Mg Tablet PO 1,000 mg Q8 RAEANN Administration Aspirin 81 mg 10/07/20 08:00 10/09/20 08:14 Aspirin 81 Mg Tab.Chew PO 11/04/20 23:59 81 mg BIDCM RAEANN Administration Bisacodyl 10 mg 10/06/20 14:49 Bisacodyl 10 Mg Suppository RECTAL DAILY PRN Constipation Calamine/Phenol 1 applic 10/06/20 13:45 Menthol/Lanolin/Calamine/Znox 113 Gm Tube TOPICAL DAILY PRN RASH/TOPICAL IRRITATION Protocol Calcium Carbonate 500 mg 10/06/20 13:45 Calcium Carbonate 500 Mg Tablet PO Q4H PRN PRN HEARTBURN Calcium/Vitamin D 1 tablet 10/06/20 17:00 10/09/20 08:14 Calcium Carb/Vitamin D 1 Tablet Tablet PO 1 tablet BIDCM [facility] Administration Cholecalciferol 2,000 unit 10/06/20 18:00 10/09/20 05:14 Cholecalciferol (Vit D3) 1,000 Unit (25mcg) PO 2,000 unit BID [facility] Administration Cyanocobalamin 1,000 mcg 10/07/20 06:00 10/09/20 05:15 Cyanocobalamin 500 Mcg Tablet PO 1,000 mcg DAILY [facility] Administration Doxycycline Monohydrate 100 mg 10/06/20 22:00 10/09/20 09:29 Doxycycline 100 Mg Capsule PO 10/11/20 23:59 100 mg BID@1000,2200 [facility] Administration Ferrous Gluconate 324 mg 10/07/20 08:00 10/09/20 08:15 Ferrous Gluconate 324 Mg Tablet PO 324 mg DAILYCM [facility] Administration Folic Acid 1 mg 10/07/20 08:00 10/09/20 08:14 Folic Acid 1 Mg Tablet PO 1 mg DAILY@0800 [facility] Administration Glimepiride 4 mg 10/06/20 17:00 10/09/20 08:14 Gl[facility]piride 4 Mg [facility] Hydrochlorothiazide 25 mg 10/07/20 06:00 10/09/20 05:15 Hydrochlorothiazide 25 Mg Tablet PO 25 mg DAILY [facility] Administration Insulin Glargine 10 units 10/07/20 22:00 10/08/20 21:51 Insulin Glargine 100 Units/Ml Pen SC 10 units QHS [facility] Administration Lactobacillus Acidophilus 1 tablet 10/06/20 18:00 10/09/20 05:15 Lactobacillus Acidophilus PO 1 tablet BID [facility] Administration Lisinopril 40 mg 10/07/20 06:00 10/09/20 05:14 Lisinopril 40 Mg Tablet PO 40 mg DAILY [facility] Administration Magnesium Hydroxide 30 ml 10/06/20 14:48 Magnesium Hydroxide 30 Ml Udc PO DAILY PRN Constipation Pantoprazole Sodium 20 mg 10/07/20 06:00 10/09/20 05:14 Pantoprazole Sodium 20 Mg Tablet PO 20 mg DAILY [facility] Administration Polyethylene Glycol 17 gm 10/07/20 06:00 10/09/20 05:15 Polyethylene Glycol 3350 17 Gm Packet PO Not Given DAILY [facility] Senna/Docusate Sodium 2 tablet 10/06/20 18:00 10/09/20 05:15 Senna/Docusate Sodium 1 Tablet PO Not Given BID [facility] Sodium Chloride 10 - 40 ml 10/06/20 14:25 0.9% Saline Lock 10 Ml Syringe IV UD PRN SALINE FLUSH Tramadol HCl 100 mg 10/09/20 07:53 Tramadol 50 Mg Tablet PO Q6H PRN PRN Pain Score 6-10 Trimethoprim 100 mg 10/06/20 17:00 10/08/20 16:44 Trimethoprim 100 Mg Tablet PO 100 mg DINNER [facility] Administration Tuberculin PPD 5 tu 10/14/20 10:00 Tuberculin,Purif.Prot.Deriv. 50 Tu/Ml Vial ID 10/14/20 10:01 X1 ONE Problem List (Last Reviewed 08/24/19 @ 12:[address] 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) Hypertension (Chronic) Hearing loss (Chronic) Osteoporosis (Chronic) Glaucoma (Chronic) Atrophic vaginitis (Chronic) GERD (gastroesophageal reflux disease) (Chronic) Recurrent urinary tract infection (Chronic) Diabetes mellitus type 2 in nonobese (Chronic) Vital Signs Temp Pulse Resp BP Pulse Ox 97.2 F L 63 16 175/51 H 94 10/09/20 01:41 10/09/20 01:41 10/09/20 01:41 10/09/20 01:41 10/09/20 01:41 Oxygen Delivery Method Room Air Weight: 83.9 kg Body Mass Index (BMI) 29.8 Sodium 138 mmol/L (136-145) 10/07/20 05:10 Potassium 4.0 mmol/L (3.5-5.1) 10/07/20 05:10 Chloride 104 mmol/L (98-107) 10/07/20 05:10 Carbon Dioxide 29.0 mmol/L (21.0-32.0) 10/07/20 05:10 Anion Gap 5 (5-15) 10/07/20 05:10 BUN 19 mg/dL (7-18) H 10/07/20 05:10 Creatinine 0.99 mg/dL (0.55-1.02) 10/07/20 05:10 Est GFR (MDRD) Af Amer 70 mL/min (>60) 10/07/20 05:10 Est GFR (MDRD) Non-Af 58 mL/min (>60) L 10/07/20 05:10 BUN/Creatinine Ratio 19.2 RATIO (10-20) 10/07/20 05:10 Glucose 145 mg/dL (74-106) H 10/07/20 05:10 Assessment/Plan: 1. Pain: acetaminophen 1000mg PO TID and tramadol 100mg PO Q6H PRN pain -06/17. Please continue to monitor for increased pain and PRN usage. 2. DVT prophylaxis: aspirin 81mg PO BIDCM thru 11/04/20. Please continue to monitor for S/S of bleeding and DVT. 3. 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 Please continue to monitor for S/S of infection, diarrhea, and cultures. 4. Iron deficiency anemia: ferrous gluconate 324mg PO DAILYCM. Please continue to monitor hemoglobin (last 8.4g/dL) and for dark stools. 5. GERD: pantoprazole 40mg PO daily and calcium carbonate 500mg PO Q4H PRN heartburn. Please continue to monitor for GERD, heartburn and diarrhea. 6. Hypertension: lisinopril 40mg PO daily and hydrochlorothiazide 25mg PO daily. Please continue to monitor BP (last 175/71), renal function, potassium (last 4mmol/L), and edema. 7. Diabetes mellitus II: glimepiride 4mg PO BID and insulin glargine 10units SC QHS. Please continue to monitor hemoglobin A1c (last 6.4%), blood glucose (last 191mg/dL), and S/S of hypoglycemia. 8. Recurrent UTI: trimethoprim 100mg PO daily. Please continue to monitor for UTI. *9. Vitamin/folate/calcium deficiencies and overall nutrition: calcium/vitamin D 1T PO BID, folic acid 1mg PO DAILYCM, cholecalciferol 2000units BID, cyanocobalamin 1000mcg PO daily, and lactobacillus 1T PO BID. Patient does not have Vitamin B12 or vitamin D levels in the chart. Please consider ordering a level now and then annually as clinically appropriate. Thanks. Please continue to monitor calcium levels (last 8.9mg/dL). Psychotropic Medications: None Unnecessary Medications: None *Bowel Regimen: Miralax 17gm PO daily, senna/docusate 2T PO BID, MOM 30mL PO daily PRN constipation and bisacodyl 10mg OH daily PRN constipation. Patient has refused 2/3 doses of Miralax and 4/6 doses of senna/docusate. Please consider changing from scheduled to PRN. Thanks. Date of Note:: 10/09/20 - Provider Comments Provider responsibility: Provider responsible to enter orders to implement recommendations <Ra Mccracken Chi - Last Filed: 10/09/20 15:33> Progress Note - Pharmacy Subjective: [] Objective: Allergies ciprofloxacin Allergy (Severe, Verified 10/04/20 07:51) impairment of motor skills Sulfa (Sulfonamide Antibiotics) Allergy (Unknown, Verified 10/04/20 15:27) unknown burning metformin Adverse Reaction (Intermediate, Verified 10/04/20 07:51) loose stool, bladder infections sitagliptin [From Janumet] Adverse Reaction (Intermediate, Verified 10/04/20 07:51) loose stool batroxobin Adverse Reaction (Unknown, Verified 10/04/20 07:51) unknown exenatide [From Byetta] Adverse Reaction (Unknown, Verified 10/04/20 07:51) unknown nizatidine [From Axid] Adverse Reaction (Unknown, Verified 10/04/20 07:51) unknown sertraline [From Zoloft] Adverse Reaction (Unknown, Verified 10/04/20 07:51) unknown simvastatin [From Zocor] Adverse Reaction (Unknown, Verified 10/04/20 07:51) unknown trandolapril [From Mavik] Adverse Reaction (Unknown, Verified 10/04/20 07:51) unknown betaxolol Adverse Reaction (Verified 10/04/20 07:51) Other doxazosin Adverse Reaction (Verified 10/04/20 07:51) Other olmesartan [From Benicar] Adverse Reaction (Verified 10/04/20 07:51) Diarrhea Current Medications Generic Name Dose Route Start Last Admin Trade Name Freq PRN Reason Stop Dose Admin Acetaminophen 1,000 mg 10/06/20 22:00 10/09/20 13:07 Acetaminophen 500 Mg Tablet PO 1,000 mg Q8 RAEANN Administration Aspirin 81 mg 10/07/20 08:00 10/09/20 08:14 Aspirin 81 Mg Tab.Chew PO 11/04/20 23:59 [facility] Administration Bisacodyl 10 mg 10/06/20 14:49 Bisacodyl 10 Mg Suppository RECTAL DAILY PRN Constipation Calamine/Phenol 1 applic 10/06/20 13:45 Menthol/Lanolin/Calamine/Znox 113 Gm Tube TOPICAL DAILY PRN RASH/TOPICAL IRRITATION Protocol Calcium Carbonate 500 mg 10/06/20 13:45 Calcium Carbonate 500 Mg Tablet PO Q4H PRN PRN HEARTBURN Calcium/Vitamin D 1 tablet 10/06/20 17:00 10/09/20 08:14 Calcium Carb/Vitamin D 1 Tablet Tablet PO 1 [facility] Administration Cholecalciferol 2,000 unit 10/06/20 18:00 10/09/20 05:14 Cholecalciferol (Vit D3) 1,000 Unit (25mcg) PO 2,000 unit BID [facility] Administration Cyanocobalamin 1,000 mcg 10/07/20 06:00 10/09/20 05:15 Cyanocobalamin 500 Mcg Tablet PO 1,000 mcg DAILY [facility] Administration Doxycycline Monohydrate 100 mg 10/06/20 22:00 10/09/20 09:29 Doxycycline 100 Mg Capsule PO 10/11/20 23:59 100 mg BID@1000,2200 [facility] Administration Ferrous Gluconate 324 mg 10/07/20 08:00 10/09/20 08:15 Ferrous Gluconate 324 Mg Tablet PO 324 [facility] Administration Folic Acid 1 mg 10/07/20 08:00 10/09/20 08:14 Folic Acid 1 Mg Tablet PO 1 mg DAILY@0800 [facility] Administration Glimepiride 4 mg 10/06/20 17:00 10/09/20 08:14 Glimepiride 4 Mg Tablet [facility] Administration Hydrochlorothiazide 25 mg 10/07/20 06:00 10/09/20 05:15 Hydrochlorothiazide 25 Mg Tablet PO 25 mg DAILY [facility] Administration Insulin Glargine 10 units 10/07/20 22:00 10/08/20 21:51 Insulin Glargine 100 Units/Ml Pen SC 10 units QHS [facility] Administration Lactobacillus Acidophilus 1 tablet 10/06/20 18:00 10/09/20 05:15 Lactobacillus Acidophilus PO 1 tablet BID RAEANN Administration Lisinopril 40 mg 10/07/20 06:00 10/09/20 05:14 Lisinopril 40 Mg Tablet PO 40 mg DAILY RAEANN Administration Magnesium Hydroxide 30 ml 10/06/20 14:48 Magnesium Hydroxide 30 Ml Udc PO DAILY PRN Constipation Pantoprazole Sodium 20 mg 10/07/20 06:00 10/09/20 05:14 Pantoprazole Sodium 20 Mg Tablet PO 20 mg DAILY RAEANN Administration Polyethylene Glycol 17 gm 10/07/20 06:00 10/09/20 05:15 Polyethylene Glycol 3350 17 Gm Packet PO Not Given DAILY RAEANN Senna/Docusate Sodium 2 tablet 10/06/20 18:00 10/09/20 05:15 Senna/Docusate Sodium 1 Tablet PO Not Given BID RAEANN Sodium Chloride 10 - 40 ml 10/06/20 14:25 0.9% Saline Lock 10 Ml Syringe IV UD PRN SALINE FLUSH Tramadol HCl 100 mg 10/09/20 07:53 10/09/20 14:11 Tramadol 50 Mg Tablet PO 100 mg Q6H PRN PRN Administration Pain Score 6-10 Trimethoprim 100 mg 10/06/20 17:00 10/08/20 16:44 Trimethoprim 100 Mg Tablet PO 100 mg DINNER RAEANN Administration Tuberculin PPD 5 tu 10/14/20 10:00 Tuberculin,Purif.Prot.Deriv. 50 Tu/Ml Vial ID 10/14/20 10:01 X1 ONE Problem List (Last Reviewed 08/24/19 @ 12:[address] 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) Hypertension (Chronic) Hearing loss (Chronic) Osteoporosis (Chronic) Glaucoma (Chronic) Atrophic vaginitis (Chronic) GERD (gastroesophageal reflux disease) (Chronic) Recurrent urinary tract infection (Chronic) Diabetes mellitus type 2 in nonobese (Chronic) Vital Signs Temp Pulse Resp BP Pulse Ox 98.1 F 61 20 H 131/82 H 97 10/09/20 14:49 10/09/20 14:49 10/09/20 14:49 10/09/20 14:49 10/09/20 14:49 Oxygen Delivery Method Room Air Weight: 83.9 kg Body Mass Index (BMI) 29.8 Sodium 138 mmol/L (136-145) 10/07/20 05:10 Potassium 4.0 mmol/L (3.5-5.1) 10/07/20 05:10 Chloride 104 mmol/L (98-107) 10/07/20 05:10 Carbon Dioxide 29.0 mmol/L (21.0-32.0) 10/07/20 05:10 Anion Gap 5 (5-15) 10/07/20 05:10 BUN 19 mg/dL (7-18) H 10/07/20 05:10 Creatinine 0.99 mg/dL (0.55-1.02) 10/07/20 05:10 Est GFR (MDRD) Af Amer 70 mL/min (>60) 10/07/20 05:10 Est GFR (MDRD) Non-Af 58 mL/min (>60) L 10/07/20 05:10 BUN/Creatinine Ratio 19.2 RATIO (10-20) 10/07/20 05:10 Glucose 145 mg/dL (74-106) H 10/07/20 05:10 Assessment/Plan: Psychotropic Medications: Unnecessary Medications: Bowel Regimen: - Provider Comments Provider responsibility: Provider responsible to enter orders to implement recommendations Provider Comments to Recommendations by Pharmacy: Agree
[2020-10-09] MEDS: traMADol 50 MG Tablet 100 MG PO (14:11)
--- NOTE | 2020-10-09 14:15 | NURSING ---
PT STATED SHE UPDATES HER .
[2020-10-09 14:49] VITALS: BP 131/82; PULSE 61; RESP 20; TEMP 36.7; O2SAT 97
[2020-10-09 16:30] LABS: Bedside Glucose 126 mg/dL (70-110)
[2020-10-09] MEDS: Trimethoprim 100 MG Tablet PO (17:39)
[2020-10-09 20:37] VITALS: PULSE 62; RESP 16; O2SAT 97
[2020-10-09 21:05] LABS: Bedside Glucose 225 mg/dL (70-110)
[2020-10-10 05:00] VITALS: BP 158/65; PULSE 58; RESP 16; TEMP 36.8; O2SAT 96
[2020-10-10] MEDS: hydroCHLOROthiazide 25 MG Tablet PO (05:58)
[2020-10-10] MEDS: Lisinopril 40 MG Tablet PO (05:58)
[2020-10-10] MEDS: Cyanocobalamin 500 MCG Tablet 1000 MCG PO (05:59)
[2020-10-10] MEDS: Pantoprazole Sodium 20 MG Tablet PO (06:00)
[2020-10-10] MEDS: Acetaminophen 500 MG Tablet 1000 MG PO ×3 (06:00→21:14)
[2020-10-10 06:21] LABS: Bedside Glucose 114 mg/dL (70-110)
[2020-10-10] MEDS: Aspirin 81 MG TAB.CHEW PO ×2 (08:05→17:06)
[2020-10-10] MEDS: Folic Acid 1 MG Tablet PO (08:05)
[2020-10-10] MEDS: Calcium Carb/Vitamin D 1 TABLET Tablet PO ×2 (08:05→17:06)
[2020-10-10] MEDS: Glimepiride 4 MG Tablet PO ×2 (08:05→17:06)
[2020-10-10] MEDS: Ferrous Gluconate 324 MG Tablet PO (08:05)
[2020-10-10] MEDS: traMADol 50 MG Tablet 100 MG PO ×2 (08:36→17:04)
[2020-10-10] MEDS: Doxycycline 100 MG CAPSULE PO ×2 (09:50→21:14)
[2020-10-10 10:00] VITALS: PULSE 55; RESP 18; O2SAT 96
--- NOTE | 2020-10-10 10:39 | NURSING ---
pt stated she updates family
[2020-10-10 11:06] LABS: Bedside Glucose 187 mg/dL (70-110)
[2020-10-10 12:44] VITALS: BP 127/72; PULSE 66; RESP 18; TEMP 36; O2SAT 96
[2020-10-10 16:35] LABS: Bedside Glucose 116 mg/dL (70-110)
[2020-10-10] MEDS: Trimethoprim 100 MG Tablet PO (17:07)
[2020-10-10 21:30] LABS: Bedside Glucose 176 mg/dL (70-110)
[2020-10-11 05:49] VITALS: BP 120/70; PULSE 67; RESP 16; TEMP 36.8; O2SAT 97
[2020-10-11] MEDS: Cyanocobalamin 500 MCG Tablet 1000 MCG PO (06:14)
[2020-10-11] MEDS: hydroCHLOROthiazide 25 MG Tablet PO (06:15)
[2020-10-11] MEDS: Lisinopril 40 MG Tablet PO (06:15)
[2020-10-11] MEDS: Acetaminophen 500 MG Tablet 1000 MG PO ×3 (06:15→20:27)
[2020-10-11] MEDS: Pantoprazole Sodium 20 MG Tablet PO (06:16)
[2020-10-11 06:26] LABS: Bedside Glucose 49 mg/dL (70-110)
[2020-10-11 06:55] LABS: Bedside Glucose 86 mg/dL (70-110)
[2020-10-11 06:55] LABS: Bedside Glucose 59 mg/dL (70-110)
[2020-10-11] MEDS: Glimepiride 4 MG Tablet PO ×2 (07:59→17:10)
[2020-10-11] MEDS: Calcium Carb/Vitamin D 1 TABLET Tablet PO ×2 (07:59→17:10)
[2020-10-11] MEDS: Ferrous Gluconate 324 MG Tablet PO (07:59)
[2020-10-11] MEDS: Folic Acid 1 MG Tablet PO (07:59)
[2020-10-11] MEDS: Aspirin 81 MG TAB.CHEW PO ×2 (07:59→17:10)
[2020-10-11] MEDS: Doxycycline 100 MG CAPSULE PO ×2 (09:41→20:27)
[2020-10-11 10:35] LABS: Bedside Glucose 195 mg/dL (70-110)
--- NOTE | 2020-10-11 11:30 | CASEMGMT ---
Social Work IDT met with patient and dtr via conference call for care plan meeting. Discussed patient's progress in therapy and nursing. Pt is TTWB for 2 weeks upon admission. Pt has f/u appt 10/18 to determine if pt can upgrade to PWBS. is getting cardioversion completed this date. IDT agrees pt will need some assistance at DC and to ensure is recovered from surgery prior to DC. Pt agreeable. Pt has 5 steps to enter. Pt is out of isolation 10/19. Pt agreeable to remain until after appt and to ensure she can complete steps. Explained Medicare benefit. SW to continue to follow for DC planning. Marcia Ayoub, [employer] PECAN HULLER
[2020-10-11] MEDS: traMADol 50 MG Tablet 100 MG PO (11:54)
[2020-10-11 13:54] VITALS: BP 136/47; PULSE 60; RESP 16; TEMP 35.8; O2SAT 94
[2020-10-11 16:55] LABS: Bedside Glucose 229 mg/dL (70-110)
[2020-10-11] MEDS: Trimethoprim 100 MG Tablet PO (17:10)
[2020-10-11 21:16] LABS: Bedside Glucose 193 mg/dL (70-110)
[2020-10-12 05:00] VITALS: BP 137/75; PULSE 59; RESP 18; TEMP 36.7; O2SAT 93
[2020-10-12] MEDS: Acetaminophen 500 MG Tablet 1000 MG PO ×3 (05:39→22:59)
[2020-10-12] MEDS: Pantoprazole Sodium 20 MG Tablet PO (05:39)
[2020-10-12] MEDS: hydroCHLOROthiazide 25 MG Tablet PO (05:39)
[2020-10-12] MEDS: Cyanocobalamin 500 MCG Tablet 1000 MCG PO (05:40)
[2020-10-12] MEDS: Lisinopril 40 MG Tablet PO (05:40)
[2020-10-12 06:16] LABS: Bedside Glucose 154 mg/dL (70-110)
[2020-10-12] MEDS: Aspirin 81 MG TAB.CHEW PO ×2 (09:10→17:12)
[2020-10-12] MEDS: Glimepiride 4 MG Tablet PO ×2 (09:10→17:12)
[2020-10-12] MEDS: Ferrous Gluconate 324 MG Tablet PO (09:11)
[2020-10-12] MEDS: Calcium Carb/Vitamin D 1 TABLET Tablet PO ×2 (09:11→17:12)
[2020-10-12] MEDS: Folic Acid 1 MG Tablet PO (09:11)
[2020-10-12 10:00] VITALS: PULSE 61; RESP 18; O2SAT 92
[2020-10-12 10:56] LABS: Bedside Glucose 183 mg/dL (70-110)
[2020-10-12 14:09] VITALS: BP 141/66; PULSE 60; RESP 16; TEMP 36.3; O2SAT 95
--- NOTE | 2020-10-12 14:29 | NURSING ---
PT STATED SHE UPDATES FAMILY
[2020-10-12 16:35] LABS: Bedside Glucose 306 mg/dL (70-110)
[2020-10-12] MEDS: Trimethoprim 100 MG Tablet PO (17:12)
[2020-10-12] MEDS: Insulin Lispro 100 UNIT/ML INSULN.PEN SC (18:02)
[2020-10-12 21:26] LABS: Bedside Glucose 157 mg/dL (70-110)
[2020-10-13 05:00] VITALS: BP 159/109; PULSE 76; RESP 18; TEMP 36.8; O2SAT 96
[2020-10-13] MEDS: Cyanocobalamin 500 MCG Tablet 1000 MCG PO (05:52)
[2020-10-13] MEDS: Lisinopril 40 MG Tablet PO (05:52)
[2020-10-13] MEDS: hydroCHLOROthiazide 25 MG Tablet PO (05:53)
[2020-10-13] MEDS: Acetaminophen 500 MG Tablet 1000 MG PO ×3 (05:53→21:21)
[2020-10-13] MEDS: Pantoprazole Sodium 20 MG Tablet PO (05:53)
[2020-10-13 06:15] LABS: Bedside Glucose 124 mg/dL (70-110)
[2020-10-13] MEDS: Glimepiride 4 MG Tablet PO ×2 (07:59→17:01)
[2020-10-13] MEDS: Aspirin 81 MG TAB.CHEW PO ×2 (07:59→17:01)
[2020-10-13] MEDS: Ferrous Gluconate 324 MG Tablet PO (08:00)
[2020-10-13] MEDS: Calcium Carb/Vitamin D 1 TABLET Tablet PO ×2 (08:00→17:01)
[2020-10-13] MEDS: Folic Acid 1 MG Tablet PO (08:00)
[2020-10-13 10:00] VITALS: PULSE 64; RESP 16; O2SAT 98
[2020-10-13 11:25] LABS: Bedside Glucose 145 mg/dL (70-110)
[2020-10-13 15:00] VITALS: BP 129/63; PULSE 55; RESP 16; TEMP 36.2; O2SAT 96
[2020-10-13 17:00] LABS: Bedside Glucose 142 mg/dL (70-110)
[2020-10-13] MEDS: Trimethoprim 100 MG Tablet PO (17:02)
[2020-10-13 21:45] LABS: Bedside Glucose 201 mg/dL (70-110)
[2020-10-14 02:18] VITALS: BP 138/56; PULSE 56; RESP 16; TEMP 36.6; O2SAT 99
[2020-10-14] MEDS: Cyanocobalamin 500 MCG Tablet 1000 MCG PO (06:30)
[2020-10-14] MEDS: hydroCHLOROthiazide 25 MG Tablet PO (06:31)
[2020-10-14] MEDS: Acetaminophen 500 MG Tablet 1000 MG PO ×3 (06:31→20:30)
[2020-10-14] MEDS: Lisinopril 40 MG Tablet PO (06:31)
[2020-10-14] MEDS: Pantoprazole Sodium 20 MG Tablet PO (06:31)
[2020-10-14 06:36] LABS: Bedside Glucose 132 mg/dL (70-110)
[2020-10-14 07:15] LABS: Absolute Lymphocyte Count 2.81 X10^3/uL (0.83-4.51); Absolute Neutrophil Count 6.3 X10^3/uL (2.0-7.7); Basophil# 0.05 X10^3/uL; Basophil% 0.5 % (0-1); Eosinophil# 0.36 X10^3/uL; Eosinophils% 3.5 % (0-5); Hematocrit 31.4 % (37-47); Hemoglobin 9.9 g/dL (12.0-15.0); Lymphocyte # 2.81 X10^3/ul (4.0); Lymphocyte % 27.1 % (19-41); Mean Corp Hgb Conc 31.5 g/dL (32-36); Mean Corpuscular Hgb 27.8 pg (27.0-32.0); Mean Corpuscular Volume 88.2 fL (81-99); Mean Platelet Vol. 9.4 fl (6.2-12.0); Monocyte% 7.7 % (0-10); NRBC Flagged by Analyzer 0 % (0-5); Neutrophil # 6.29 X10^3/uL (2.7-7.7); Neutrophil % 60.7 % (47-70); Platelet Count 365 K/mm3 (150-450); RBC Distribution Width CV 15.9 % (11.6-14.6); RBC Distribution Width SD 51.8 fl (35.1-43.9); Red Blood Count 3.56 M/mm3 (4.2-5.4); White Blood Count 10.4 K/mm3 (4.4-11.0)
[2020-10-14 07:54] LABS: Anion Gap 7 (5-15); BUN 17 mg/dL (7-18); BUN/Creat Ratio 16.3 RATIO (10-20); Calcium,Total 9.6 mg/dL (8.5-10.1); Chloride 105 mmol/L (98-107); Creatinine, Serum 1.04 mg/dL (0.55-1.02); EST Glomerular Filtration Rate 55 mL/min (>60); Est Glom Filt Rate - Afr Amer 66 mL/min (>60); Estimated Creatinine Clearance 43.75 ml/min; Glucose 128 mg/dL (74-106); Sodium Level 139 mmol/L (136-145)
[2020-10-14] MEDS: Aspirin 81 MG TAB.CHEW PO ×2 (08:37→17:24)
[2020-10-14] MEDS: Calcium Carb/Vitamin D 1 TABLET Tablet PO ×2 (08:37→17:21)
[2020-10-14] MEDS: Glimepiride 4 MG Tablet PO ×2 (08:37→17:23)
[2020-10-14] MEDS: Ferrous Gluconate 324 MG Tablet PO (08:37)
[2020-10-14] MEDS: Folic Acid 1 MG Tablet PO (08:37)
[2020-10-14 11:11] LABS: Bedside Glucose 194 mg/dL (70-110)
[2020-10-14] MEDS: Tuberculin,Purif.prot.deriv. 50 TU/ML Vial 5 ML ID (11:44)
[2020-10-14 14:49] VITALS: BP 141/57; PULSE 61; RESP 18; TEMP 36.2; O2SAT 99
[2020-10-14 16:46] LABS: Bedside Glucose 152 mg/dL (70-110)
[2020-10-14] MEDS: Trimethoprim 100 MG Tablet PO (17:24)
[2020-10-14 20:40] VITALS: PULSE 66; RESP 16; O2SAT 98
[2020-10-14 21:25] LABS: Bedside Glucose 167 mg/dL (70-110)
[2020-10-15 05:00] VITALS: BP 136/70; PULSE 66; RESP 16; TEMP 36.7; O2SAT 94
[2020-10-15 05:36] LABS: Anion Gap 7 (5-15); BUN 15 mg/dL (7-18); BUN/Creat Ratio 14.3 RATIO (10-20); Calcium,Total 9.5 mg/dL (8.5-10.1); Chloride 104 mmol/L (98-107); Creatinine, Serum 1.05 mg/dL (0.55-1.02); EST Glomerular Filtration Rate 54 mL/min (>60); Est Glom Filt Rate - Afr Amer 66 mL/min (>60); Estimated Creatinine Clearance 43.34 ml/min; Glucose 131 mg/dL (74-106); Potassium 4.2 mmol/L (3.5-5.1); Sodium Level 138 mmol/L (136-145)
[2020-10-15 06:16] LABS: Bedside Glucose 136 mg/dL (70-110)
[2020-10-15] MEDS: Acetaminophen 500 MG Tablet 1000 MG PO ×3 (06:22→20:37)
[2020-10-15] MEDS: Cyanocobalamin 500 MCG Tablet 1000 MCG PO (06:22)
[2020-10-15] MEDS: Pantoprazole Sodium 20 MG Tablet PO (06:23)
[2020-10-15] MEDS: Lisinopril 40 MG Tablet PO (06:23)
[2020-10-15] MEDS: hydroCHLOROthiazide 25 MG Tablet PO (06:23)
[2020-10-15] MEDS: Folic Acid 1 MG Tablet PO (08:00)
[2020-10-15] MEDS: Calcium Carb/Vitamin D 1 TABLET Tablet PO ×2 (08:00→17:10)
[2020-10-15] MEDS: Glimepiride 4 MG Tablet PO ×2 (08:00→17:10)
[2020-10-15] MEDS: Aspirin 81 MG TAB.CHEW PO ×2 (08:00→17:10)
[2020-10-15] MEDS: Ferrous Gluconate 324 MG Tablet PO (08:00)
[2020-10-15 10:56] LABS: Bedside Glucose 219 mg/dL (70-110)
[2020-10-15 14:32] VITALS: BP 130/51; PULSE 60; RESP 20; TEMP 36.4; O2SAT 99
[2020-10-15 16:36] LABS: Bedside Glucose 151 mg/dL (70-110)
[2020-10-15] MEDS: Trimethoprim 100 MG Tablet PO (17:11)
[2020-10-15 21:16] LABS: Bedside Glucose 216 mg/dL (70-110)
[2020-10-16 05:00] VITALS: BP 141/65; PULSE 60; RESP 16; TEMP 36.7; O2SAT 97
[2020-10-16] MEDS: Cyanocobalamin 500 MCG Tablet 1000 MCG PO (05:58)
[2020-10-16] MEDS: hydroCHLOROthiazide 25 MG Tablet PO (05:58)
[2020-10-16] MEDS: Pantoprazole Sodium 20 MG Tablet PO (05:58)
[2020-10-16] MEDS: Lisinopril 40 MG Tablet PO (05:59)
[2020-10-16] MEDS: Acetaminophen 500 MG Tablet 1000 MG PO ×3 (05:59→20:35)
[2020-10-16 06:20] LABS: Bedside Glucose 139 mg/dL (70-110)
[2020-10-16] MEDS: Aspirin 81 MG TAB.CHEW PO ×2 (08:08→17:23)
[2020-10-16] MEDS: Glimepiride 4 MG Tablet PO ×2 (08:08→17:24)
[2020-10-16] MEDS: Ferrous Gluconate 324 MG Tablet PO (08:08)
[2020-10-16] MEDS: Calcium Carb/Vitamin D 1 TABLET Tablet PO ×2 (08:08→17:24)
[2020-10-16] MEDS: Folic Acid 1 MG Tablet PO (08:08)
[2020-10-16 11:06] LABS: Bedside Glucose 211 mg/dL (70-110)
[2020-10-16 14:55] VITALS: BP 125/57; PULSE 53; RESP 14; TEMP 36.8; O2SAT 97
[2020-10-16 16:45] LABS: Bedside Glucose 180 mg/dL (70-110)
[2020-10-16] MEDS: Trimethoprim 100 MG Tablet PO (17:24)
[2020-10-16 20:42] VITALS: PULSE 60; RESP 16; O2SAT 99
[2020-10-17 05:00] VITALS: BP 135/75; PULSE 60; RESP 16; TEMP 36.9; O2SAT 96
[2020-10-17 06:15] LABS: Bedside Glucose 132 mg/dL (70-110)
[2020-10-17] MEDS: Acetaminophen 500 MG Tablet 1000 MG PO ×3 (06:16→20:24)
[2020-10-17] MEDS: Pantoprazole Sodium 20 MG Tablet PO (06:16)
[2020-10-17] MEDS: Lisinopril 40 MG Tablet PO (06:16)
[2020-10-17] MEDS: Cyanocobalamin 500 MCG Tablet 1000 MCG PO (06:16)
[2020-10-17] MEDS: hydroCHLOROthiazide 25 MG Tablet PO (06:16)
--- NOTE | 2020-10-17 07:45 | MDS.RN ---
Information for the mds was obtained from review of the clinical record, interview of resident, staff, and direct observation of resident's care.
[2020-10-17] MEDS: Aspirin 81 MG TAB.CHEW PO ×2 (08:13→17:09)
[2020-10-17] MEDS: Calcium Carb/Vitamin D 1 TABLET Tablet PO ×2 (08:13→17:09)
[2020-10-17] MEDS: Folic Acid 1 MG Tablet PO (08:13)
[2020-10-17] MEDS: Glimepiride 4 MG Tablet PO ×2 (08:13→17:08)
[2020-10-17] MEDS: Ferrous Gluconate 324 MG Tablet PO (08:55)
[2020-10-17 10:20] VITALS: PULSE 57; RESP 18; O2SAT 93
[2020-10-17 15:24] VITALS: BP 155/67; PULSE 58; RESP 18; TEMP 36.3; O2SAT 100
[2020-10-17] MEDS: Trimethoprim 100 MG Tablet PO (17:09)
[2020-10-18 01:47] VITALS: BP 126/48; PULSE 58; RESP 16; TEMP 36.3; O2SAT 98
[2020-10-18] MEDS: Pantoprazole Sodium 20 MG Tablet PO (05:55)
[2020-10-18] MEDS: hydroCHLOROthiazide 25 MG Tablet PO (05:55)
[2020-10-18] MEDS: Cyanocobalamin 500 MCG Tablet 1000 MCG PO (05:55)
[2020-10-18] MEDS: Lisinopril 40 MG Tablet PO (05:55)
[2020-10-18] MEDS: Polyethylene Glycol 3350 17 GM PACKET PO (05:55)
[2020-10-18] MEDS: Acetaminophen 500 MG Tablet 1000 MG PO ×3 (05:55→20:35)
[2020-10-18 06:15] LABS: Bedside Glucose 105 mg/dL (70-110)
[2020-10-18] MEDS: Calcium Carb/Vitamin D 1 TABLET Tablet PO ×2 (07:53→17:38)
[2020-10-18] MEDS: Aspirin 81 MG TAB.CHEW PO ×2 (07:53→17:37)
[2020-10-18] MEDS: Glimepiride 4 MG Tablet PO ×2 (07:53→17:37)
[2020-10-18] MEDS: Folic Acid 1 MG Tablet PO (07:53)
[2020-10-18] MEDS: Ferrous Gluconate 324 MG Tablet PO (07:53)
--- NOTE | 2020-10-18 10:15 | NURSING ---
pt off unit to dr rizzo
--- NOTE | 2020-10-18 14:27 | NURSING ---
pt returned from appt with dr Melendrez, returned with orders to continue tylenol for pain, aspirin for additional 2 wks, pt reported that she isnt getting her insulin that she takes at home and asked that it gets addressed while here. PWB to RLE, f/u 4 weeks with barbara. spoke with pt about insulin she takes at home and she stated humalog 50/50 at meals. offered to speak with dr lim regarding and pt does not want it while here because we do not carry 50/50 pen. wants to start it when she gets home.
[2020-10-18 14:54] VITALS: BP 127/51; PULSE 61; RESP 14; TEMP 36.3; O2SAT 96
--- NOTE | 2020-10-18 14:59 | CASEMGMT ---
Social Work Spoke with pt upon return of appt. increased pt to PWBS. Pt and agreeable for pt to DC home 10/20. IDT agreeable. Pt requested [facility] and for SW to schedule appt. Referral made to [facility] - scheduled PT session for 10/24 at 1:30 pm. can transport. Pt has no DME needs. Plan: DC home with 10/20 with [facility] ADRIANA StevensW
[2020-10-18] MEDS: Trimethoprim 100 MG Tablet PO (17:38)
--- NOTE | 2020-10-18 19:29 | PCM.DC ---
- Discharge Diagnoses Current Active Problems: Current Active and Chronic Problems (Last Reviewed 08/24/19 @ 12:[address] 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) Hypertension (Chronic) Hearing loss (Chronic) Osteoporosis (Chronic) Glaucoma (Chronic) Atrophic vaginitis (Chronic) GERD (gastroesophageal reflux disease) (Chronic) Recurrent urinary tract infection (Chronic) Diabetes mellitus type 2 in nonobese (Chronic) You will use the following diet at home:: No restrictions, Regular Your food should be the consistency of: Regular Your liquids should be the consistency of: Regular/Thin Discharge Activity: Return to Normal Activity, May Shower, Use Walker Weight Bearing Status: Weight bearing as tolerated Call your doctor if you observe: Fever of 101 or Higher, Inability to urinate, Inability to have a bowel movement, Shortness of breath, Chest pain, Uncontrolled pain Allergies/Adverse Reactions: Allergies ciprofloxacin Allergy (Severe, Verified 10/04/20 07:51) impairment of motor skills Sulfa (Sulfonamide Antibiotics) Allergy (Unknown, Verified 10/04/20 15:27) unknown burning metformin Adverse Reaction (Intermediate, Verified 10/04/20 07:51) loose stool, bladder infections sitagliptin [From Janumet] Adverse Reaction (Intermediate, Verified 10/04/20 07:51) loose stool batroxobin Adverse Reaction (Unknown, Verified 10/04/20 07:51) unknown exenatide [From Byetta] Adverse Reaction (Unknown, Verified 10/04/20 07:51) unknown nizatidine [From Axid] Adverse Reaction (Unknown, Verified 10/04/20 07:51) unknown sertraline [From Zoloft] Adverse Reaction (Unknown, Verified 10/04/20 07:51) unknown simvastatin [From Zocor] Adverse Reaction (Unknown, Verified 10/04/20 07:51) unknown trandolapril [From Mavik] Adverse Reaction (Unknown, Verified 10/04/20 07:51) unknown betaxolol Adverse Reaction (Verified 10/04/20 07:51) Other doxazosin Adverse Reaction (Verified 10/04/20 07:51) Other olmesartan [From Benicar] Adverse Reaction (Verified 10/04/20 07:51) Diarrhea Medications to take at Discharge hydrochlorothiazide 25 mg tablet 25 mg PO DAILY #30 tab 06/25/19 lisinopril 40 mg tablet 40 mg PO DAILY #90 tab 06/25/19 calcium carbonate 500 mg (1,250 mg)-vitamin D3 125 unit tablet 1 tab PO BID 07/20/19 cholecalciferol (vitamin D3) 50 mcg (2,000 unit) capsule 2,000 unit PO BID 07/20/19 lactobacillus combination no.8 3 billion cell capsule 3,000 mmu cells PO BID 07/20/19 omeprazole magnesium 20 mg tablet,delayed release 20 mg PO DAILY PRN 07/20/19 trimethoprim 100 mg tablet 100 mg PO DINNER 07/20/19 glimepiride 4 mg tablet 4 mg PO BID #180 tab 08/24/19 Cyanocobalamin (Vitamin B-12) [Vitamin B-12] 1,000 mcg PO DAILY 06/14/20 Calcium Carbonate [Tums] 500 mg PO Q4H PRN PRN tab 06/30/20 Cranberry Fruit Concentrate [Azo Cranberry] 250 mg PO BID 08/30/20 Menthol/Lanolin/Calamine/Znox [Calmoseptine Ointment] 1 applic TOPICAL DAILY PRN 08/30/20 [place]-3 Fatty Acids/Fish Oil [Fish Oil 1,000 mg Capsule] 1 ea PO DAILY 08/30/20 Aspirin [Aspirin, Baby] 81 mg PO BIDCM 10/06/20 Acetaminophen [Tylenol] 1,000 mg PO Q8 tablet 10/18/20 Ferrous Gluconate 324 mg PO DAILY #30 tab 10/18/20 Folic Acid 1 mg PO DAILY@0800 #30 tab 10/18/20 The following prescriptions were given: Ferrous Gluconate 324 mg PO DAILY #30 tab Transmission Status: Pending to [facility]/pharmacy #[id number] Folic Acid 1 mg PO DAILY@0800 #30 tab Transmission Status: Pending to [facility]/pharmacy #[id number] Primary Care Physician: Pipe Quigley MD [Primary Care Provider] - Please follow up with your Primary Care Physician in: 1 week. Test Results: Test results from this visit will be discussed in further detail at your follow-up appointment, if applicable. Please Follow Up With: Oren Casillas MD When: 2 weeks. Please Follow Up With: [facility] When: 1 week. Proposed Discharge Date: 10/20/20
--- NOTE | 2020-10-18 19:30 | DS.PCM_ITS ---
Discharge Date and Diagnosis - Problem List Patient Problems: Active and Suspected Problems (Last Reviewed 08/24/19 @ 12:[address] Jeremy Harrison MD) Debility (Acute) Date of Admission: 10/06/20 Date of Discharge: 10/20/20 - Primary Discharge Diagnosis Acute Problems: Active Problems (Last Reviewed 08/24/19 @ 12:[address] Jeremy Harrison MD) Debility (Acute) - Secondary Discharge Diagnosis Chronic Problems: Chronic Problems (Last Reviewed 08/24/19 @ 12:[address] 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) Hypertension (Chronic) Hearing loss (Chronic) Osteoporosis (Chronic) Recurrent UTI (Chronic) Glaucoma (Chronic) Atrophic vaginitis (Chronic) GERD (gastroesophageal reflux disease) (Chronic) Recurrent urinary tract infection (Chronic) Diabetes mellitus type 2 in nonobese (Chronic) Diabetes (Chronic) Chronic UTI (urinary tract infection) (Chronic) Essential (primary) hypertension (Chronic) Diabetes type 2, uncontrolled (Chronic) Hospital Course and Treatment Imaging Results: 10/06/20 13:56 Diet: Carbohydrate Controlled Food consistency:: Regular Liquid Consistency:: Regular/Thin Labs (Last 48 Hours) 10/17/20 10/18/20 06:10 06:08 POC Glucose 132 H 105 Operations: None Procedures: None Summary of Care Provided: The patient is a 75 year old Female with below past medical history of infected right prosthetic knee joint, hospitalized for removal right knee antibiotic spacer, revision right total knee replacement 10/04/2020, admitted to TCU with debility, here for rehabilitation, strengthening, prior to discharge home with . Aspirin 81MG twice daily thru 11/04/2020 for DVT prophylaxis. Discharge home with , [facility]. Patient Problems: Active and Suspected Problems (Last Reviewed 08/24/19 @ 12:[address] Jeremy Harrison MD) Debility (Acute) - Physical Exam Vitals/I&O's: Vital Signs Temp Pulse Resp BP Pulse Ox 97.3 F L 61 14 127/51 H 96 10/18/20 14:54 10/18/20 14:54 10/18/20 14:54 10/18/20 14:54 10/18/20 14:54 Oxygen Delivery Method Room Air Weight: 81.221 kg Body Mass Index (BMI) 29.8 Intake and Output for Last 24 Hours 10/16/20 10/17/20 10/18/20 23:59 23:59 23:59 Intake Total 960 / 960 840 / 840 480 / 480 Balance 960 / 960 840 / 840 480 / 480 Laboratory Results 10/18/20 06:08: POC Glucose 105 Current Medications Acetaminophen (Acetaminophen 500 Mg Tablet) 1,000 mg PO Q8 [facility] Last Admin: 10/18/20 14:20 Dose: 1,000 mg Documented by: Aspirin ([facility] 81 Mg Tab.Chew) [facility] Stop: 11/04/20 23:59 Last Admin: 10/18/20 17:37 Dose: 81 mg Documented by: Bisacodyl (Bisacodyl 10 Mg Suppository) 10 mg RECTAL DAILY PRN PRN Reason: Constipation Calamine/Phenol (Menthol/Lanolin/Calamine/Znox 113 Gm Tube) 1 applic TOPICAL DAILY PRN; Protocol PRN Reason: RASH/TOPICAL IRRITATION Calcium Carbonate (Calcium Carbonate 500 Mg Tablet) 500 mg PO Q4H PRN PRN PRN Reason: HEARTBURN Calcium/Vitamin D (Calcium Carb/Vitamin D 1 Tablet Tablet) [facility] Last Admin: 10/18/20 17:38 Dose: 1 tablet Documented by: Cholecalciferol (Cholecalciferol (Vit D3) 1,000 Unit (25mcg)) 2,000 unit PO BID [facility] Last Admin: 10/18/20 17:37 Dose: 2,000 unit Documented by: Cyanocobalamin (Cyanocobalamin 500 Mcg Tablet) 1,000 mcg PO DAILY [facility] Last Admin: 10/18/20 05:55 Dose: 1,000 mcg Documented by: Ferrous Gluconate (Ferrous Gluconate 324 Mg Tablet) [facility] Last Admin: 10/18/20 07:53 Dose: 324 mg Documented by: Folic Acid (Folic Acid 1 Mg Tablet) 1 mg PO DAILY@0800 [facility] Last Admin: 10/18/20 07:53 Dose: 1 mg Documented by: Glimepiride (Glimepiride 4 Mg Tablet) [facility] Last Admin: 10/18/20 17:37 Dose: 4 mg Documented by: Hydrochlorothiazide (Hydrochlorothiazide 25 Mg Tablet) 25 mg PO DAILY [facility] Last Admin: 10/18/20 05:55 Dose: 25 mg Documented by: Lactobacillus Acidophilus (Lactobacillus Acidophilus) 1 tablet PO BID [facility] Last Admin: 10/18/20 17:38 Dose: 1 tablet Documented by: Lisinopril (Lisinopril 40 Mg Tablet) 40 mg PO DAILY [facility] Last Admin: 10/18/20 05:55 Dose: 40 mg Documented by: Magnesium Hydroxide (Magnesium Hydroxide 30 Ml Udc) 30 ml PO DAILY PRN PRN Reason: Constipation Pantoprazole Sodium (Pantoprazole Sodium 20 Mg Tablet) 20 mg PO DAILY [facility] Last Admin: 10/18/20 05:55 Dose: 20 mg Documented by: Polyethylene Glycol (Polyethylene Glycol 3350 17 Gm Packet) 17 gm PO DAILY [facility] Last Admin: 10/18/20 05:55 Dose: 17 gm Documented by: Senna/Docusate Sodium (Senna/Docusate Sodium 1 Tablet) 2 tablet PO BID PRN PRN PRN Reason: Constipation Sodium Chloride (0.9% Saline Lock 10 Ml Syringe) 10 - 40 ml IV UD PRN PRN Reason: SALINE FLUSH Tramadol HCl (Tramadol 50 Mg Tablet) 100 mg PO Q6H PRN PRN PRN Reason: Pain Score 6-10 Last Admin: 10/11/20 11:54 Dose: 100 mg Documented by: Trimethoprim (Trimethoprim 100 Mg Tablet) 100 mg PO DINNER [facility] Last Admin: 10/18/20 17:38 Dose: 100 mg Documented by: Discharge Diet: No Restrictions Discharge Activity: Return to Normal Activity, May Shower, Use Walker Weight Bearing Status: Weight bearing as tolerated Call your doctor if you observe: Fever of 101 or Higher, Inability to urinate, Inability to have a bowel movement, Shortness of breath, Chest pain, Uncontrolled pain Home Medications: Medications to take at Discharge hydrochlorothiazide 25 mg tablet 25 mg PO DAILY #30 tab 06/25/19 lisinopril 40 mg tablet 40 mg PO DAILY #90 tab 06/25/19 calcium carbonate 500 mg (1,250 mg)-vitamin D3 125 unit tablet 1 tab PO BID 07/20/19 cholecalciferol (vitamin D3) 50 mcg (2,000 unit) capsule 2,000 unit PO BID 07/20/19 lactobacillus combination no.8 3 billion cell capsule 3,000 mmu cells PO BID 07/20/19 omeprazole magnesium 20 mg tablet,delayed release 20 mg PO DAILY PRN 07/20/19 trimethoprim 100 mg tablet 100 mg PO DINNER 07/20/19 glimepiride 4 mg tablet 4 mg PO BID #180 tab 08/24/19 Cyanocobalamin (Vitamin B-12) [Vitamin B-12] 1,000 mcg PO DAILY 06/14/20 Calcium Carbonate [Tums] 500 mg PO Q4H PRN PRN tab 06/30/20 Cranberry Fruit Concentrate [Azo Cranberry] 250 mg PO BID 08/30/20 Menthol/Lanolin/Calamine/Znox [Calmoseptine Ointment] 1 applic TOPICAL DAILY PRN 08/30/20 Universal-3 Fatty Acids/Fish Oil [Fish Oil 1,000 mg Capsule] 1 ea PO DAILY 08/30/20 Aspirin [Aspirin, Baby] 81 mg PO BIDCM 10/06/20 Acetaminophen [Tylenol] 1,000 mg PO Q8 tablet 10/18/20 Ferrous Gluconate 324 mg PO DAILY #30 tab 10/18/20 Folic Acid 1 mg PO DAILY@0800 #30 tab 10/18/20 Following Prescriptions Were Given to Patient: Ferrous Gluconate 324 mg PO DAILY #30 tab Transmission Status: Pending to [id number] Folic Acid 1 mg PO DAILY@0800 #30 tab Transmission Status: Pending to [id number] Primary Care Physician: Pipe Quigley MD [Primary Care Provider] - Please follow up with your Primary Care Physician in: 1 week. Please Follow Up With: Oren Casillas MD When: 2 weeks. Please Follow Up With: [facility] When: 1 week. Disposition: Home Minutes spent on discharge:: 30 Patient Condition:: Stable Medical Necessity - Tobacco Use Smoking Status: Never smoker Tobacco Use: Non-smoker Meaningful Use Info Meaningful Use Diagnoses (Choose all that apply): None applicable
[2020-10-18 23:31] VITALS: PULSE 63; RESP 16; O2SAT 95
[2020-10-19 02:12] VITALS: BP 123/46; PULSE 63; RESP 16; TEMP 36.9; O2SAT 95
[2020-10-19] MEDS: Pantoprazole Sodium 20 MG Tablet PO (06:17)
[2020-10-19] MEDS: Cyanocobalamin 500 MCG Tablet 1000 MCG PO (06:17)
[2020-10-19] MEDS: Acetaminophen 500 MG Tablet 1000 MG PO ×3 (06:17→21:02)
[2020-10-19] MEDS: Lisinopril 40 MG Tablet PO (06:17)
[2020-10-19] MEDS: hydroCHLOROthiazide 25 MG Tablet PO (06:17)
[2020-10-19 06:26] LABS: Bedside Glucose 166 mg/dL (70-110)
[2020-10-19] MEDS: Folic Acid 1 MG Tablet PO (09:07)
[2020-10-19] MEDS: Calcium Carb/Vitamin D 1 TABLET Tablet PO ×2 (09:08→16:57)
[2020-10-19] MEDS: Glimepiride 4 MG Tablet PO ×2 (09:08→16:56)
[2020-10-19] MEDS: Ferrous Gluconate 324 MG Tablet PO (09:08)
[2020-10-19] MEDS: Aspirin 81 MG TAB.CHEW PO ×2 (09:08→16:57)
[2020-10-19] MEDS: Polyethylene Glycol 3350 17 GM PACKET PO (09:08)
[2020-10-19 11:26] VITALS: BP 134/70; PULSE 52; RESP 16; TEMP 36.9; O2SAT 97
--- NOTE | 2020-10-19 13:57 | MDS.RN ---
Completed pain interview for RENETTA 10/20/20.
--- NOTE | 2020-10-19 13:57 | NURSING ---
pt stated she updated
[2020-10-19 14:00] VITALS: PULSE 58; RESP 18; O2SAT 98
[2020-10-19] MEDS: Trimethoprim 100 MG Tablet PO (16:57)
[2020-10-20 05:00] VITALS: BP 127/64; PULSE 83; RESP 18; TEMP 36.7; O2SAT 93
[2020-10-20] MEDS: Lisinopril 40 MG Tablet PO (06:03)
[2020-10-20] MEDS: hydroCHLOROthiazide 25 MG Tablet PO (06:03)
[2020-10-20] MEDS: Acetaminophen 500 MG Tablet 1000 MG PO (06:03)
[2020-10-20] MEDS: Pantoprazole Sodium 20 MG Tablet PO (06:03)
[2020-10-20] MEDS: Cyanocobalamin 500 MCG Tablet 1000 MCG PO (06:04)
[2020-10-20 06:31] LABS: Bedside Glucose 127 mg/dL (70-110)
[2020-10-20] MEDS: Ferrous Gluconate 324 MG Tablet PO (07:58)
[2020-10-20] MEDS: Glimepiride 4 MG Tablet PO (07:58)
[2020-10-20] MEDS: Aspirin 81 MG TAB.CHEW PO (07:58)
[2020-10-20] MEDS: Folic Acid 1 MG Tablet PO (07:58)
[2020-10-20] MEDS: Calcium Carb/Vitamin D 1 TABLET Tablet PO (07:58)
[2020-10-20 09:02] VITALS: PULSE 67; O2SAT 96
[2020-10-20 09:08] VITALS: BP 124/62; PULSE 67; RESP 16; TEMP 36.5; O2SAT 96
== END 2020-10-20 10:30 | disposition home or self-care (01) | DRG 950 ==
LOC: TCU 13:15
PROVIDERS: Admitting Provider Family Medicine Geriatric Medicine; PCP Family Medicine; Referring Provider Family Medicine Geriatric Medicine; Visit Provider Family Medicine Geriatric Medicine
DX: T84.53XD Infection and inflammatory reaction due to internal right knee prosthesis, subsequent encounter (principal); Y79.2 Prosthetic and other implants, materials and accessory orthopedic devices associated with adverse incidents; K21.9 Gastro-esophageal reflux disease without esophagitis; E55.9 Vitamin D deficiency, unspecified; E11.9 Type 2 diabetes mellitus without complications; D50.9 Iron deficiency anemia, unspecified; I10 Essential (primary) hypertension; Z87.440 Personal history of urinary (tract) infections
CPT/HCPCS: 36415; 80048; 82962; 85025; 87426; 87635; 97110; 97116; 97162; 97165; 97530; 97535; 97802; U0005; U0003

== ENCOUNTER → 2020-11-29 15:03 | Outpatient (CLI) | payer MEDICARE, OTHER, SELFPAY ==
[2020-10-06 13:20] VITALS: BMI 29.8
[2020-11-29 18:27] LABS: Erythrocyte Sedimentation Rate 27 mm/hr (0-30)
[2020-11-29 18:29] LABS: Absolute Lymphocyte Count 3.25 X10^3/uL (0.83-4.51); Absolute Neutrophil Count 5.5 X10^3/uL (2.0-7.7); Basophil# 0.04 X10^3/uL; Basophil% 0.4 % (0-1); Eosinophil# 0.29 X10^3/uL; Eosinophils% 2.9 % (0-5); Hematocrit 34.9 % (37-47); Hemoglobin 10.7 g/dL (12.0-15.0); Lymphocyte # 3.25 X10^3/ul (4.0); Lymphocyte % 32.9 % (19-41); Mean Corp Hgb Conc 30.7 g/dL (32-36); Mean Corpuscular Hgb 27.8 pg (27.0-32.0); Mean Corpuscular Volume 90.6 fL (81-99); Mean Platelet Vol. 10.3 fl (6.2-12.0); Monocyte# 0.71 X10^3/uL; Monocyte% 7.2 % (0-10); NRBC Flagged by Analyzer 0 % (0-5); Neutrophil # 5.52 X10^3/uL (2.7-7.7); Platelet Count 282 K/mm3 (150-450); RBC Distribution Width CV 14.7 % (11.6-14.6); RBC Distribution Width SD 48.6 fl (35.1-43.9); Red Blood Count 3.85 M/mm3 (4.2-5.4); White Blood Count 9.9 K/mm3 (4.4-11.0)
== END ==
PROVIDERS: PCP Family Medicine; Referring Provider Specialist; Visit Provider Specialist
DX: T84.53XD Infection and inflammatory reaction due to internal right knee prosthesis, subsequent encounter (principal); Z96.651 Presence of right artificial knee joint
CPT/HCPCS: 36415; 85025; 85652; 86140

== ENCOUNTER → 2021-02-21 12:37 | Outpatient (CLI) | payer MEDICARE, OTHER, SELFPAY ==
[2020-10-06 13:20] VITALS: BMI 29.8
--- NOTE | 2021-02-21 12:50 | BI_ITS ---
MAMMOGRAPHY - BILATERAL SCREENING REASON FOR EXAM: Female, 75 years old. Routine annual screening examination. PERTINENT HISTORY: Aunt with breast cancer. TECHNIQUE: Digital bilateral breast miguel (3D mammographic acquisition) in the CC and MLO projections. 2-D mediolateral oblique (MLO) and craniocaudad (CC) views of both breasts were obtained. CAD: Full Field Digital Mammography with Computer Added Detection was performed. COMPARISON: Comparison is made with prior study dated 02/21/2020 and 02/16/2019. FINDINGS: Breast Composition: There are scattered areas of fibroglandular density. There are no dominant masses or suspicious calcifications. No other significant abnormalities are identified. There has been no significant change since the prior study. BI/SCRN MAMM (CAD)W/MIGUEL BILAT IMPRESSION: Stable bilateral screening mammogram. Yearly follow-up mammogram recommended. (A) ASSESSMENT CATEGORY: BIRADS Category 1: Negative. A letter regarding these results will be sent to the patient by the facility within 30 days. Approximately 10% of breast cancers are not detected by mammography. A normal mammogram should not delay biopsy of a clinically suspicious abnormality. [id number] Electronically Signed: Thomas Bhatt MD at 13:32 EDT , Service support ,
== END ==
PROVIDERS: PCP Family Medicine; Referring Provider Family Medicine; Visit Provider Family Medicine
DX: Z12.31 Encounter for screening mammogram for malignant neoplasm of breast (principal); Z80.3 Family history of malignant neoplasm of breast
CPT/HCPCS: 77063; 77067

== ENCOUNTER → 2021-12-31 | Outpatient (CLI) | payer MEDICARE, OTHER, SELFPAY ==
[2021-12-31 17:24] LABS: Absolute Lymphocyte Count 4.02 X10^3/uL (0.83-4.51); Basophil# 0.05 X10^3/uL; Basophil% 0.5 % (0-1); Eosinophil# 0.22 X10^3/uL; Eosinophils% 2.2 % (0-5); Hematocrit 39.6 % (37-47); Hemoglobin 12.4 g/dL (12.0-15.0); Lymphocyte # 4.02 X10^3/ul (0.83-4.51); Lymphocyte % 40.2 % (19-41); Mean Corp Hgb Conc 31.3 g/dL (32-36); Mean Corpuscular Hgb 28.6 pg (27.0-32.0); Mean Corpuscular Volume 91.2 fL (81-99); Mean Platelet Vol. 10.4 fl (6.2-12.0); Monocyte# 0.64 X10^3/uL; Monocyte% 6.4 % (0-10); NRBC Flagged by Analyzer 0 % (0-5); Neutrophil # 5.01 X10^3/uL (2.7-7.7); Platelet Count 246 K/mm3 (150-450); RBC Distribution Width CV 13.5 % (11.6-14.6); RBC Distribution Width SD 45.8 fl (35.1-43.9); Red Blood Count 4.34 M/mm3 (4.2-5.4)
[2021-12-31 18:48] LABS: ALB/GLOB Ratio 0.9 RATIO (0.9-2.4); AST(SGOT) 29 U/L (15-37); Alanine Aminotransfer ALT/SGPT 46 U/L (13-56); Albumin, Serum 3.7 g/dL (3.2-5.0); Alkaline Phosphatase 102 U/L (45-117); Anion Gap 7 (5-15); BUN 22 mg/dL (7-18); BUN/Creat Ratio 20.8 RATIO (10-20); Calcium,Total 9.5 mg/dL (8.5-10.1); Chloride 104 mmol/L (98-107); Creatinine, Serum 1.06 mg/dL (0.55-1.02); EST Glomerular Filtration Rate 54 mL/min (>60); Est Glom Filt Rate - Afr Amer 65 mL/min (>60); Glucose 115 mg/dL (74-106); Potassium 4.2 mmol/L (3.5-5.1); Protein, Total 7.7 g/dL (6.4-8.2); Sodium Level 140 mmol/L (136-145)
[2021-12-31 20:02] LABS: Vitamin B12 1066 pg/mL (211-911)
== END | disposition home or self-care (01) ==
LOC: BIMLAB 15:29
PROVIDERS: PCP Internal Medicine; Referring Provider Internal Medicine; Visit Provider Internal Medicine
DX: I10 Essential (primary) hypertension (principal); G62.9 Polyneuropathy, unspecified
CPT/HCPCS: 36415; 80053; 82607; 85025

== ENCOUNTER → 2022-01-01 | Outpatient (CLI) | payer MEDICARE, OTHER, SELFPAY ==
--- NOTE | 2022-01-01 11:30 | RAD_ITS ---
INDICATION: Left Radiculopathy EXAMINATION/TECHNIQUE: X-RAY - XR Spine Lumbar Min 4 Views COMPARISON: CT abdomen and pelvis from 07/09/2019 FINDINGS: VERTEBRAE/DISCS: Mild likely chronic L1 vertebral body height loss. No acute fracture. No spondylolisthesis. Mild straightening of the normal lumbar lordosis. Mild to moderate multilevel facet arthropathy most prominent at L5-S1. Varying levels multilevel degenerative disc disease with associated disc height loss which is most severe at L3-L4 where there is also large anterior marginal osteophyte formation. INCLUDED ABDOMEN: Nonobstructive bowel gas pattern in the visualized abdomen. No radiopaque foreign bodies. RAD/L/S Spine Min 4 Views IMPRESSION: 1. No acute fracture. 2. Multilevel degenerative disc disease and facet arthropathy. Electronically Signed: Taye Noe, at 12:24 EDT ,
== END | disposition home or self-care (01) ==
LOC: MTRAD 11:28
PROVIDERS: PCP Internal Medicine; Referring Provider Internal Medicine; Visit Provider Internal Medicine
DX: M54.16 Radiculopathy, lumbar region (principal)
CPT/HCPCS: 72110

== ENCOUNTER → 2022-02-25 | Outpatient (CLI) | payer MEDICARE, OTHER, SELFPAY ==
--- NOTE | 2022-02-25 17:21 | RAD_ITS ---
STUDY: X-RAY - ABDOMEN/PELVIS REASON FOR EXAM: Female, 76 years old. STONES TECHNIQUE: 2 supine views. COMPARISON: Abdominal radiographs of 02/17/2019.. FINDINGS: Normal visualized lung bases. There is an unremarkable bowel gas pattern. No distended bowel loops. The visualized liver, spleen and kidneys are grossly normal in size and morphology. Projected in the region of the right ureteropelvic junction as a an 8 x 4 mm lobulated calcification, suspicious for a calculus. No left renal calculi are identified. Normal soft tissue structures. Thoracolumbar degenerative disc disease, including severe disc space narrowing at the L3/4, L4/5 and L5/S1 levels. Findings of osteitis pubis incidentally noted. RAD/Abdomen Single View IMPRESSION: 8 x 4 mm calcification projected to the right of the mid lumbar spine, suspicious for an obstructing stone in the region of the right ureteropelvic junction. Electronically Signed: Darryn Irwin MD at 7:54 EDT ,
== END | disposition home or self-care (01) ==
LOC: MTRAD 17:20
PROVIDERS: PCP Internal Medicine; Referring Provider Urology; Visit Provider Urology
DX: N20.0 Calculus of kidney (principal)
CPT/HCPCS: 74018

== ENCOUNTER → 2022-03-13 | Outpatient (CLI) | payer MEDICARE, OTHER, SELFPAY ==
[2022-03-13 12:03] LABS: Absolute Lymphocyte Count 3.62 X10^3/uL (0.83-4.51); Absolute Neutrophil Count 5.1 X10^3/uL (2.0-7.7); Basophil# 0.03 X10^3/uL; Basophil% 0.3 % (0-1); Eosinophil# 0.25 X10^3/uL; Eosinophils% 2.6 % (0-5); Hematocrit 37.5 % (37-47); Hemoglobin 11.8 g/dL (12.0-15.0); Lymphocyte # 3.62 X10^3/ul (0.83-4.51); Lymphocyte % 37.3 % (19-41); Mean Corp Hgb Conc 31.5 g/dL (32-36); Mean Corpuscular Hgb 28.2 pg (27.0-32.0); Mean Corpuscular Volume 89.5 fL (81-99); Mean Platelet Vol. 10.2 fl (6.2-12.0); Monocyte# 0.66 X10^3/uL; Monocyte% 6.8 % (0-10); NRBC Flagged by Analyzer 0 % (0-5); Neutrophil # 5.12 X10^3/uL (2.7-7.7); Neutrophil % 52.7 % (47-70); Platelet Count 212 K/mm3 (150-450); RBC Distribution Width SD 45.5 fl (35.1-43.9); Red Blood Count 4.19 M/mm3 (4.2-5.4); White Blood Count 9.7 K/mm3 (4.4-11.0)
[2022-03-13 12:35] LABS: AST(SGOT) 34 U/L (15-37); Alanine Aminotransfer ALT/SGPT 56 U/L (13-56); Albumin, Serum 3.6 g/dL (3.2-5.0); Alkaline Phosphatase 87 U/L (45-117); Anion Gap 4 (5-15); BUN 20 mg/dL (7-18); BUN/Creat Ratio 21.3 RATIO (10-20); Calcium,Total 9.6 mg/dL (8.5-10.1); Chloride 106 mmol/L (98-107); Creatinine, Serum 0.94 mg/dL (0.55-1.02); EST Glomerular Filtration Rate 62 mL/min (>60); Est Glom Filt Rate - Afr Amer 75 mL/min (>60); Globulin 3.7 g/dL (2.2-4.2); Glucose 145 mg/dL (74-106); Potassium 4.3 mmol/L (3.5-5.1); Protein, Total 7.3 g/dL (6.4-8.2); Sodium Level 139 mmol/L (136-145)
== END | disposition home or self-care (01) ==
PROVIDERS: PCP Internal Medicine
DX: Z87.440 Personal history of urinary (tract) infections (principal); Z79.2 Long term (current) use of antibiotics
CPT/HCPCS: 36415; 80053; 85025

== ENCOUNTER 2022-04-04 06:11 | Day surgery (SDC) | payer MEDICARE, OTHER, SELFPAY ==
[2022-04-04 07:02] VITALS: BP 139/77; PULSE 61; RESP 16; TEMP 36.6; O2SAT 96; BMI 32.3
[2022-04-04] MEDS: Lactated Ringers 1,000 ML 15 ML IV ×2 (07:02→10:09)
[2022-04-04 07:25] LABS: Bedside Glucose 157 mg/dL (74-106)
[2022-04-04] MEDS: Cefazolin 2 GM in 0.9% Normal Saline 100 ML IV (09:06)
--- NOTE | 2022-04-04 09:17 | DCINST_ITS ---
Discharge Instructions Diet Discharge Diet: No restrictions Activity Discharge Activity: Return to Normal Activity and May Drive (When not taking narcotics) May resume sexual activity in: No Restrictions Dressing / Incision Call your doctor if you observe: Fever of 101 or Higher, Inability to urinate and Inability to have a bowel movement Follow Up Care Please Follow Up With: Amy Rodriguez MD When: 2 to 3 weeks in the office with a KUB, call for appointment Test Results: Test results from this visit will be discussed in further detail at your follow- up appointment, if applicable. Discharge Plan Admission Attending Provider: Amy Rodriguez Primary Care Provider: Luther Torre Discharge Orders/Prescriptions Prescriptions: New ondansetron HCl [ondansetron HCl] 8 mg tablet 8 mg PO Q8H PRN PRN (Reason: Nausea) 7 Days Qty: 20 0RF oxycodone-acetaminophen [Percocet] 5-325 mg tablet 1 tab PO Q8H PRN (Reason: pain) 5 Days Qty: 20 0RF phenazopyridine [Pyridium] 200 mg tablet 200 mg PO TID PRN PRN (Reason: Bladder Spasms) 7 Days Qty: 30 0RF Continued calcium carbonate 500 mg (1,250 mg)-vitamin D3 125 unit tablet 500 mg(1,250mg) -125 unit tablet 1 tab PO DAILY Adult Probiotic 3 billion cell capsule 3,000 mmu cells PO BID cholecalciferol (vitamin D3) 2,000 unit capsule 2,000 unit PO DAILY Prilosec OTC 20 mg tablet,delayed release (DR/EC) 20 mg PO DAILY PRN (Reason: Heartburn) glimepiride 4 mg tablet 4 mg PO BID Qty: 180 3RF Rx Instructions: 4 mg PO bid; amlodipine 5 mg tablet 5 mg PO DAILY Qty: 90 3RF lisinopril 40 mg tablet 40 mg PO DAILY Qty: 90 3RF (DME) FreeStyle Precision Esvin Strips Strip See Rx Instructions .ROUTE .MEDSUPPLY Qty: 100 6RF Rx Instructions: 3x/day Humalog Mix 50-50 KwikPen 100 unit/mL (50-50) insulin pen 19 unit subcut DAILY Rx Instructions: 14u 22u 25u latanoprost 0.005 % drops 1 ml ophthalmic (eye) DAILY Label Comments: INSTILL 1 DROP INTO BOTH EYES EVERY DAY AT NIGHT cyanocobalamin (vitamin B-12) 1,000 MCG capsule 1,000 mcg PO DAILY calcium carbonate 500 MG tablet 500 mg PO Q4H PRN PRN (Reason: HEARTBURN) 0RF omega-3 fatty acids-fish oil 1 EACH capsule 1 ea PO DAILY cefdinir 300 mg Capsule 300 mg PO DAILY Humalog Mix 50-50 KwikPen 100 unit/mL (50-50) Insulin Pen 22 unit SUBCUT DAILY Humalog Mix 50-50 KwikPen 100 unit/mL (50-50) Insulin Pen 31 unit SUBCUT DINNER d-mannose 500 mg Capsule 500 mg PO DAILY acetaminophen [Tylenol] 325 mg Tablet 325 mg PO DAILY Referrals / Follow Up: Luther Torre MD [Primary Care Provider] - Disposition Disposition (needs filled in before D/C Order can be placed): Home, Self Care
--- NOTE | 2022-04-04 09:21 | OP.PCM_ITS ---
Report of Operation Date of Procedure: 04/04/22 Pre-Operative Diagnosis: Right renal calculus Post-Operative Diagnosis: Same Surgery/Procedure Performed:: Cystoscopy, right ureteral stent insertion, right renal extracorporal shockwave lithotripsy Surgeon: Amy Rodriguez Type of Anesthesia: General Specimen's removed: None Description of Procedure: The patient is a 76-year-old female with recurrent urinary tract infections who was found to have an obstructing right proximal ureteral calculus. She now presents for definitive surgical intervention. Informed consent was obtained. Patient was taken to the operating room and placed on the operating room table. Anesthesia monitored the head, neck, airway, IV access and vital signs throughout the case. Once anesthesia was appropriate ministered, the patient was placed into dorsolithotomy position was prepped and draped in usual sterile fashion. The cystoscope was inserted through the urethra under direct visu alization into the urinary bladder. The bladder mucosa was visualized in its entirety and found to be without erythema, mass, foreign body or ulceration. The ureteral orifices were located in the correct anatomic position and area of the trigone. The right ureteral orifice was intubated with a 0.035 Glidewire and a 6 x 26 JJ stent was inserted over the wire with good positioning in the renal pelvis as well as the urinary bladder. The stone was positioned within the right kidney rather than ureter. This time the patient's bladder was emptied. The cystoscope was then removed. The patient was repositioned and 3000 shocks were applied to the right renal calculus which appeared to be well fragmented at the conclusion of the case. The patient was then awakened and taken to the recovery room in good condition. There were no complications during this procedure. Grafts/Implants Used: 6 x 26 JJ stent Complications None Admit VTE Documentation VTE Present on Admission: Yes VTE Mechan Device Prophylaxis: SCD's VTE Pharm Prophylaxis ordered?: No Reason prophylaxis not ordered:: Treatment Not Indicated
[2022-04-04 09:58] VITALS: BP 134/70; BP 139/77; PULSE 75; RESP 16; TEMP 36.3; O2SAT 100
[2022-04-04 10:00] VITALS: BP 131/56; BP 139/77; PULSE 69; RESP 16; O2SAT 100
[2022-04-04 10:15] VITALS: BP 135/113; BP 139/77; PULSE 61; RESP 16; O2SAT 100
[2022-04-04 10:21] LABS: Bedside Glucose 134 mg/dL (74-106)
[2022-04-04 10:30] VITALS: BP 131/61; BP 139/77; PULSE 64; RESP 16; TEMP 36.3; O2SAT 100
== END 2022-04-04 11:24 | disposition home or self-care (01) ==
LOC: SDC 06:13 → AC 06:14
PROVIDERS: PCP Internal Medicine; Referring Provider Urology; Visit Provider Urology
PROC: (CPT 50590; principal; 2022-04-04 08:40)
DX: N20.2 Calculus of kidney with calculus of ureter (principal); Z79.4 Long term (current) use of insulin; E11.9 Type 2 diabetes mellitus without complications; M51.36 Other intervertebral disc degeneration, lumbar region; I10 Essential (primary) hypertension; M54.16 Radiculopathy, lumbar region; G89.29 Other chronic pain; K21.9 Gastro-esophageal reflux disease without esophagitis; Z79.899 Other long term (current) drug therapy
CPT/HCPCS: 50590; 00873; 82962; J7120; C2617; J2405

== ENCOUNTER → 2022-04-19 | Outpatient (CLI) | payer MEDICARE, OTHER, SELFPAY ==
--- NOTE | 2022-04-19 11:15 | RAD_ITS ---
EXAM: XR ABDOMEN, 1 VIEW CLINICAL INDICATION: KIDNEY STONE TECHNIQUE: Frontal supine view of the abdomen/pelvis. This report was created using [employer] report generation technology. COMPARISON: 02/17/2019 FINDINGS: No bowel obstruction. Limited assessment for free air on supine examination. No suspicious calcifications. Right double-J ureteral stent in place. Phleboliths in the pelvis. Degenerative changes of the spine and pelvis with no unusual lytic or sclerotic lesions of bone. RAD/Abdomen Single View IMPRESSION: No suspicious calcifications. If still concerned for urolithiasis, recommend noncontrast CT. No acute disease. Electronically Signed: Toney Nolasco MD at 22:18 EDT ,
[2022-04-19 15:16] LABS: Absolute Lymphocyte Count 3.67 X10^3/uL (0.83-4.51); Absolute Neutrophil Count 5.1 X10^3/uL (2.0-7.7); Basophil# 0.04 X10^3/uL; Basophil% 0.4 % (0-1); Eosinophil# 0.25 X10^3/uL; Eosinophils% 2.5 % (0-5); Hematocrit 39.1 % (37-47); Hemoglobin 12.5 g/dL (12.0-15.0); Lymphocyte # 3.67 X10^3/ul (0.83-4.51); Mean Corpuscular Hgb 29.1 pg (27.0-32.0); Mean Corpuscular Volume 91.1 fL (81-99); Mean Platelet Vol. 10.3 fl (6.2-12.0); Monocyte# 0.76 X10^3/uL; Monocyte% 7.7 % (0-10); NRBC Flagged by Analyzer 0 % (0-5); Neutrophil # 5.13 X10^3/uL (2.7-7.7); Neutrophil % 51.7 % (47-70); Platelet Count 228 K/mm3 (150-450); RBC Distribution Width CV 14.2 % (11.6-14.6); RBC Distribution Width SD 47.9 fl (35.1-43.9); Red Blood Count 4.29 M/mm3 (4.2-5.4); White Blood Count 9.9 K/mm3 (4.4-11.0)
[2022-04-19 15:25] LABS: CRP 5.63 mg/L (0.0-3.0)
[2022-04-19 15:58] LABS: Erythrocyte Sedimentation Rate 22 mm/hr (0-30)
== END | disposition home or self-care (01) ==
LOC: MTRAD 11:13
PROVIDERS: Specialist; PCP Internal Medicine; Referring Provider Urology; Visit Provider Urology
DX: N20.0 Calculus of kidney (principal); Z96.651 Presence of right artificial knee joint
CPT/HCPCS: 36415; 74018; 85025; 85652; 86140

== ENCOUNTER → 2022-05-06 | Outpatient (CLI) | payer MEDICARE, OTHER, SELFPAY ==
[2022-05-06 10:40] LABS: Synovial Fld Mononuclear WBC # 0.726 10^3/ul; Synovial Fld Mononuclear WBC % 62.9 %; Synovial Fld Polynuclear WBC # 0.428 10^3/uL; Synovial Fld Polynuclear WBC % 37.1 %
[2022-05-06 10:54] LABS: RBC /Synovial Fluid 0.015 10^6/uL (0)
[2022-05-06 12:43] LABS: AUTO B FLUID DILUENT BKGD CT WBC <0.1 RBC <0.01 (W<.1,R<.01)
[2022-05-06 12:45] LABS: Appearance /Synovial Fluid Cloudy (CLEAR); Body Fluid QC Type(s) BF1Q; Color / Synovial Fluid Yellow (Pale Yellow); Lymph 23 %; Monocyte /Synovial Fluid 25 %; Neutrophil 40 % (0-25); Other Cell /Synovial Fluid 12 %; Source / Synovial Fluid R KNEE; Viscosity / Synovial Fluid Sl. Viscous (HIGH)
[2022-05-07 13:18] LABS: Pathologist Comment Reviewed
== END | disposition home or self-care (01) ==
LOC: LABSPEC 08:51
PROVIDERS: PCP Internal Medicine; Referring Provider Specialist; Visit Provider Specialist
DX: M25.461 Effusion, right knee (principal); Z96.651 Presence of right artificial knee joint
CPT/HCPCS: 87015; 87070; 87075; 87101; 87116; 87205; 87206; 89050; 89051

== ENCOUNTER → 2022-05-15 | Outpatient (CLI) | payer MEDICARE, OTHER, SELFPAY ==
[2022-05-15 11:58] LABS: Absolute Lymphocyte Count 2.67 X10^3/uL (0.83-4.51); Absolute Neutrophil Count 4.9 X10^3/uL (2.0-7.7); Basophil# 0.06 X10^3/uL; Basophil% 0.7 % (0-1); Eosinophils% 2.3 % (0-5); Hematocrit 38.7 % (37-47); Lymphocyte # 2.67 X10^3/ul (0.83-4.51); Lymphocyte % 31.3 % (19-41); Mean Corpuscular Hgb 28.6 pg (27.0-32.0); Mean Corpuscular Volume 92.1 fL (81-99); Mean Platelet Vol. 10.7 fl (6.2-12.0); NRBC Flagged by Analyzer 0 % (0-5); Neutrophil # 4.94 X10^3/uL (2.7-7.7); Neutrophil % 58.1 % (47-70); Platelet Count 259 K/mm3 (150-450); RBC Distribution Width CV 13.6 % (11.6-14.6); White Blood Count 8.5 K/mm3 (4.4-11.0)
[2022-05-15 12:19] LABS: ALB/GLOB Ratio 0.8 RATIO (0.9-2.4); AST(SGOT) 31 U/L (15-37); Alanine Aminotransfer ALT/SGPT 47 U/L (13-56); Albumin, Serum 3.4 g/dL (3.2-5.0); Alkaline Phosphatase 86 U/L (45-117); Anion Gap 6 (5-15); BUN 23 mg/dL (7-18); BUN/Creat Ratio 24.6 RATIO (10-20); Calcium,Total 9.4 mg/dL (8.5-10.1); Chloride 108 mmol/L (98-107); Creatinine, Serum 0.94 mg/dL (0.55-1.02); EST Glomerular Filtration Rate 62 mL/min (>60); Est Glom Filt Rate - Afr Amer 75 mL/min (>60); Globulin 4.2 g/dL (2.2-4.2); Glucose 133 mg/dL (74-106); Potassium 4.4 mmol/L (3.5-5.1); Protein, Total 7.6 g/dL (6.4-8.2); Sodium Level 141 mmol/L (136-145)
== END | disposition home or self-care (01) ==
LOC: BIMLAB 09:06
PROVIDERS: PCP Internal Medicine; Referring Provider Internal Medicine; Visit Provider Internal Medicine
DX: Z01.818 Encounter for other preprocedural examination (principal); Z01.810 Encounter for preprocedural cardiovascular examination
CPT/HCPCS: 36415; 80053; 85025

== ENCOUNTER → 2022-06-03 | Outpatient (CLI) | payer MEDICARE, OTHER, SELFPAY ==
[2022-06-03 17:54] LABS: Anion Gap 9 (5-15); BUN 42 mg/dL (7-18); BUN/Creat Ratio 40.4 RATIO (10-20); Calcium,Total 9.6 mg/dL (8.5-10.1); Chloride 105 mmol/L (98-107); Creatinine, Serum 1.04 mg/dL (0.55-1.02); EST Glomerular Filtration Rate 55 mL/min (>60); Est Glom Filt Rate - Afr Amer 66 mL/min (>60); Glucose 135 mg/dL (74-106); Potassium 4.6 mmol/L (3.5-5.1); Sodium Level 138 mmol/L (136-145)
== END | disposition home or self-care (01) ==
PROVIDERS: PCP Internal Medicine; Referring Provider Specialist; Visit Provider Specialist
DX: Z01.812 Encounter for preprocedural laboratory examination (principal); M25.461 Effusion, right knee
CPT/HCPCS: 36415; 80048

== ENCOUNTER → 2022-06-10 | Outpatient (CLI) | payer MEDICARE, OTHER, SELFPAY ==
[2022-06-10 15:12] LABS: Absolute Lymphocyte Count 2.52 X10^3/uL (0.83-4.51); Absolute Neutrophil Count 7.5 X10^3/uL (2.0-7.7); Basophil# 0.03 X10^3/uL; Basophil% 0.3 % (0-1); Eosinophil# 0.33 X10^3/uL; Eosinophils% 2.9 % (0-5); Hematocrit 31.6 % (37-47); Lymphocyte # 2.52 X10^3/ul (0.83-4.51); Lymphocyte % 22.1 % (19-41); Mean Corp Hgb Conc 31.6 g/dL (32-36); Mean Corpuscular Hgb 29.2 pg (27.0-32.0); Mean Corpuscular Volume 92.1 fL (81-99); Mean Platelet Vol. 10.5 fl (6.2-12.0); Monocyte# 0.86 X10^3/uL; Monocyte% 7.6 % (0-10); NRBC Flagged by Analyzer 0 % (0-5); Neutrophil % 65.9 % (47-70); Platelet Count 251 K/mm3 (150-450); RBC Distribution Width CV 14.4 % (11.6-14.6); RBC Distribution Width SD 48.1 fl (35.1-43.9); Red Blood Count 3.43 M/mm3 (4.2-5.4); White Blood Count 11.4 K/mm3 (4.4-11.0)
[2022-06-10 15:48] LABS: Anion Gap 9 (5-15); BUN 20 mg/dL (7-18); BUN/Creat Ratio 20.2 RATIO (10-20); Chloride 104 mmol/L (98-107); Creatinine, Serum 0.99 mg/dL (0.55-1.02); EST Glomerular Filtration Rate 58 mL/min (>60); Est Glom Filt Rate - Afr Amer 70 mL/min (>60); Glucose 157 mg/dL (74-106); Potassium 3.6 mmol/L (3.5-5.1); Sodium Level 137 mmol/L (136-145)
== END | disposition home or self-care (01) ==
PROVIDERS: PCP Internal Medicine; Referring Provider Physician Assistant Surgical; Visit Provider Physician Assistant Surgical
DX: D64.9 Anemia, unspecified (principal); E11.9 Type 2 diabetes mellitus without complications; I10 Essential (primary) hypertension; M19.90 Unspecified osteoarthritis, unspecified site; Z96.652 Presence of left artificial knee joint
CPT/HCPCS: 36415; 80048; 85025

== ENCOUNTER → 2022-06-20 | Outpatient (CLI) | payer MEDICARE, OTHER, SELFPAY ==
[2022-06-20 13:22] LABS: Mucous, Urine 0 SEEN /hpf (<or=2+)
[2022-06-20 15:46] LABS: Color, Urine Yellow (Yellow); Glucose, Dipstick Normal (Normal); Ketone-Dipstick Negative (Negative); Leukocyte Esterase-Dipstick 25 /ul (Negative); Nitrite-Dipstick Negative (Negative); Occult Blood-Urine 25 /ul (Negative); Protein-Dipstick 15 mg/dl (Negative); Specific Gravity, Urine 1.015 (1.002-1.030); Urine Bilirubin Dipstick Negative (Negative); Urine Clarity Clear (Clear); Urine Urobilinogen Normal (Normal)
[2022-06-20 17:16] LABS: Red Blood Cells-Urine 0-5 SEEN /hpf (0-5); White Blood Cells 5-10 SEEN /hpf (0-5)
[2022-06-20 17:17] LABS: Bacteria 1+ /hpf (None Seen); Squamous Epithelial Cells - UA 10-25 SEEN /hpf (5-10)
[2022-06-20 17:19] LABS: Calcium Oxalate Crystals Ur 3+ /hpf (<or=2+)
== END | disposition home or self-care (01) ==
LOC: LABSPEC 13:21
PROVIDERS: PCP Internal Medicine; Visit Provider Internal Medicine
DX: N89.8 Other specified noninflammatory disorders of vagina (principal)
CPT/HCPCS: 81001

== ENCOUNTER → 2022-06-22 | Outpatient (CLI) | payer MEDICARE, OTHER, SELFPAY | END | disposition home or self-care (01) | LOC: LAB 09:38 | PROVIDERS: PCP Internal Medicine; Referring Provider Internal Medicine; Visit Provider Internal Medicine | DX: R82.90 Unspecified abnormal findings in urine (principal) | CPT/HCPCS: 87086; 87088 ==

== ENCOUNTER 2022-08-17 17:07 | Emergency (ER) | payer MEDICARE, OTHER, SELFPAY ==
[2022-08-17 17:08] VITALS: BP 150/36; PULSE 82; RESP 16; TEMP 37.4; O2SAT 98; BMI 31.1
[2022-08-17 17:14] VITALS: BP 130/71; PULSE 69; RESP 18; TEMP 37.4; O2SAT 93
--- NOTE | 2022-08-17 18:12 | EKG12_ITS ---
Test Reason : WEAKNESS Blood Pressure : / mmHG Vent. Rate : 070 BPM Atrial Rate : 070 BPM P-R Int : 182 ms QRS Dur : 086 ms QT Int : 426 ms P-R-T Axes : 063 004 049 degrees QTc Int : 460 ms Normal sinus rhythm Normal ECG Confirmed by NAFISA BONNER, SYDNIE ([id number]), school photograph editor ANNI WOODRUFF ([id number]) on 08/20/2022 11:22:46 AM Referred By: Confirmed By:SYDNIE SKELTON MD
--- NOTE | 2022-08-17 18:14 | EX.ED.DYSGE1 ---
HPI History of Present Illness Chief Complaint: Weakness Detail of Chief Complaint: Diagnosed with UTI, complaining of fever and generalized weakness unable to Informant: patient and spouse/S.O. Onset/Context/Timing Onset: Today, Yesterday and Days Context: Gradual Onset Timing: Continuous Current Severity: Mild Maximum Severity: Moderate Narrative Narrative: 77-year-old female 8 weeks ago had a total knee replacement done at [facility]. History of diabetes and kidney stones. Saw her urologist 2 days ago. Was diagnosed with a UTI and started on antibiotic that they think may have been Macrobid. She is taken 2 dosages. At home she is developed a fever and generalized weakness. Now to the point she is unable to stand. She is also having diarrhea and decreased intake. Denies vomiting. Denies any significant cough or shortness of breath. No chest pain. Prior similar symptoms: Yes Recent Illness/Hospitalization: No [facility] Medical History Abnormal urinalysis Back pain Balance disorder Bladder disease Chronic back pain Chronic UTI (urinary tract infection) Dietary restriction Difficulty swallowing Essential (primary) hypertension Flu vaccine need Furunculosis Gastric reflux Glaucoma History of diverticulitis History of echocardiogram History of edema History of irregular heartbeat History of pain when walking Hypertension Insulin dependent diabetes mellitus Lumbar radiculopathy Neuropathy Non-smoker Obesity Osteoarthritis Preoperative evaluation to rule out surgical contraindication Renal stone Vaginal irritation Wears glasses Wears hearing aid Home Medications calcium carbonate 500 mg-vitamin D3 3.125 mcg (125 unit) tablet (Calcium) 1 tab PO DAILY supplement 07/20/19 [History Last Taken Unknown] cholecalciferol (vitamin D3) 50 mcg (2,000 unit) capsule 2,000 unit PO DAILY supplement 07/20/19 [History Last Taken Unknown] lactobacillus combination no.8 3 billion cell capsule (Adult Probiotic) 3,000 mmu cells PO BID probiotic 07/20/19 [History Last Taken Unknown] omeprazole magnesium 20 mg tablet,delayed release (Prilosec OTC) 20 mg PO DAILY PRN Heartburn 07/20/19 [History Last Taken 04/04/22] cyanocobalamin (vitamin B-12) 1,000 mcg capsule 1,000 mcg PO DAILY supplement 06/14/20 [History Last Taken Unknown] calcium carbonate 200 mg calcium (500 mg) chewable tablet 500 mg PO Q4H PRN PRN HEARTBURN 06/30/20 [Rx Last Taken Unknown] omega-3 fatty acids-fish oil 340 mg-1,000 mg capsule 1 ea PO DAILY SUPPLEMENT 08/30/20 [History Last Taken Unknown] blood sugar diagnostic (FreeStyle Precision Esvin Strips) #100 ea 07/16/21 [Rx Last Taken Unknown] insulin lispro protamine-lispro 100 unit/mL (50-50) subcutaneous pen (Humalog Mix 50-50 KwikPen) 19 unit subcut DAILY 12/24/21 [History Last Taken Unknown] latanoprost 0.005 % eye drops 1 ml ophthalmic (eye) DAILY 12/24/21 [History Last Taken Unknown] acetaminophen 325 mg tablet (Tylenol) 325 mg PO DAILY 03/29/22 [History Last Taken Unknown] d-mannose 500 mg capsule 2,100 mg PO BID 03/29/22 [History Last Taken Unknown] insulin lispro protamine-lispro 100 unit/mL (50-50) subcutaneous pen (Humalog Mix 50-50 KwikPen) 22 unit subcut DAILY 03/29/22 [History Last Taken Unknown] estradiol 0.01% (0.1 mg/gram) vaginal cream (Estrace) 1 appful vaginal DAILY 04/10/22 [History Last Taken Unknown] amlodipine 5 mg tablet 5 mg PO DAILY #90 tabs 05/08/22 [Rx Last Taken Unknown] lisinopril 40 mg tablet 40 mg PO DAILY bp #90 tabs 05/08/22 [Rx Last Taken Unknown] mupirocin 2 % topical ointment 1 applic topical TID #22 grams 05/15/22 [Rx Last Taken Unknown] aspirin 81 mg tablet,delayed release (Adult Aspirin Regimen) 81 mg PO DAILY 06/19/22 [History Last Taken Unknown] doxycycline hyclate 100 mg capsule 100 mg PO DAILY 06/19/22 [History Last Taken Unknown] ferrous sulfate 325 mg (65 mg iron) tablet 325 mg PO DAILY 06/19/22 [History Last Taken Unknown] meloxicam 7.5 mg tablet 7.5 mg PO DAILY 06/19/22 [History Last Taken Unknown] tramadol 50 mg tablet 50 mg PO Q6H PRN 06/19/22 [History Last Taken Unknown] folic acid 1 mg tablet ea PO 06/24/22 [History Last Taken Unknown] insulin lispro protamine-lispro 100 unit/mL (50-50) subcutaneous pen (Humalog Mix 50-50 KwikPen) 25 unit subcut DINNER 06/24/22 [History Last Taken Unknown] metronidazole 500 mg tablet ea PO 06/24/22 [History Last Taken Unknown] ascorbic acid (vitamin C) 500 mg tablet (Vitamin C) 500 mg PO DAILY 08/17/22 [History Last Taken Unknown] cephalexin 500 mg capsule 500 mg PO Q8H UTI 10 days #30 caps 08/17/22 [Rx Last Taken Unknown] Allergy/AdvReac Type Severity Reaction Status Date / Time ciprofloxacin Allergy Severe impairment Verified 08/17/22 17:17 of motor skills Sulfa (Sulfonamide Allergy Unknown unknown Verified 08/17/22 17:17 Antibiotics) metformin AdvReac Intermediate loose Verified 08/17/22 17:17 stool, bladder infections sitagliptin [From Janumet] AdvReac Intermediate loose stool Verified 08/17/22 17:17 batroxobin AdvReac Unknown unknown Verified 08/17/22 17:17 exenatide [From Byetta] AdvReac Unknown unknown Verified 08/17/22 17:17 nizatidine [From Axid] AdvReac Unknown unknown Verified 08/17/22 17:17 sertraline [From Zoloft] AdvReac Unknown unknown Verified 08/17/22 17:17 simvastatin [From Zocor] AdvReac Unknown unknown Verified 08/17/22 17:17 trandolapril [From Mavik] AdvReac Unknown unknown Verified 08/17/22 17:17 betaxolol AdvReac Other Verified 08/17/22 17:17 doxazosin AdvReac Other Verified 08/17/22 17:17 olmesartan [From Benicar] AdvReac Diarrhea Verified 08/17/22 17:17 Family History Mother CVA (cerebral vascular accident) Aunt Breast cancer Surgical History H/O foot surgery H/O tubal ligation H/O: hysterectomy History of cataract surgery History of cholecystectomy History of tonsillectomy Hx of arthroscopic knee surgery Hx of bilateral cataract extraction Hx of eye surgery Hx of knee surgery Hx of total knee arthroplasty Hx of total knee arthroplasty Social History Smoking Status: Never smoker alcohol intake: current alcohol intake frequency: a few times a week substance use type: does not use diet: diabetic well-balanced diet: daily or most days what type of physical activity do you participate in: walking frequency: 1-2 times per week ROS ROS ED ROS Narrative Fever. Weakness. Diarrhea. Review of Systems ROS Unobtainable: Denies due to encephalopathy Constitutional Constitutional ED: Reports fever(s) Eyes Eyes: Denies blurry vision ENT ENT ED: Denies ear pain Cardiovascular Cardiovascular: Denies chest pain or palpitations Respiratory/Chest Respiratory/Chest: Denies cough or dyspnea Gastrointestinal Gastrointestinal: Reports abdominal pain and diarrhea; Denies melena, nausea or vomiting Genitourinary Genitourinary ED: Denies dysuria or hematuria Musculoskeletal Musculoskeletal: Denies arthralgias or back pain Integumentary Denies abscess or Abrasions Neurologic Neurologic: Denies headache(s) Psychiatric Psychiatric: Denies anxiety Endocrine Endocrinology: Denies cold intolerance Hematologic/Lymphatic Hematologic/Lymphatic: Reports none Allergic/Immunologic Allergic/Immunologic ED: Denies mouth swelling or tongue swelling EXAM Physical Exam Narrative Exam Narrative: 77-year-old female no acute distress. Clinically looks ill but not septic or toxic. Temperature nine 9.4. Pulse ox 98% on room air no hypoxia. H EENT exam mild dry mucous members. Pupils round reactive light. No facial droop. No facial trauma. Neck nontender. No meningismus. No lymphadenopathy. Lungs clear to auscultation bilaterally. Heart regular rhythm rate about 70 no murmur. Abdomen soft nontender normal bowel sounds no peritoneal signs. Moving all 4 extremities. 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 Normal dorsi plantar flexion. Neurologically she is awake and alert with no focal motor the patient. Const Vital Signs: 08/17/22 17:08 08/17/22 17:14 08/17/22 17:18 Temperature 99.4 F H 99.4 F H Temperature Source Temporal Temporal Pulse Rate 82 69 Respiratory Rate 16 18 Respiratory Effort Normal Non-Labored Respiratory Pattern Normal Blood Pressure 150/36 H 130/71 H Blood Pressure Mean 74 90 Pulse Ox 98 93 Oxygen Delivery Method Room Air Room Air 08/17/22 18:45 08/17/22 19:07 08/17/22 21:00 Temperature 98.9 F Temperature Source Temporal Pulse Rate 69 73 65 Respiratory Rate 23 H 19 H 15 Respiratory Effort Respiratory Pattern Blood Pressure 149/57 H 145/56 H 146/56 H Blood Pressure Mean 87 85 86 Pulse Ox 94 95 96 Oxygen Delivery Method Room Air Room Air Room Air Positive well nourished, well developed and obese; Negative for cachectic, contractures or unkempt General Appearance ED: well developed and NAD; Negative for unkempt, cachectic, contractures, cyanotic or diaphoretic Nutritional Appearance: obese; Negative for cachectic HEENT Reports dry mucous membranes; Denies moist mucous membranes Negative for trauma or tenderness Mouth ED: Yes dry mucous membranes Mouth: dry mucous membranes Eyes PERRL and EOMs intact bilaterally General Eye ED: Negative for pale conjunctiva or scleral icterus Neck supple and no JVD General: Negative for tenderness Chest Wall inspection of chest normal and palpation of chest normal Chest: Negative for other Resp normal respiratory effort and clear to auscultation bilaterally Effort and Inspection: Negative for retractions Cardio regular rate, regular rhythm, S1 normal heart sound, S2 normal heart sound and no murmurs Rate: Negative for bradycardia or tachycardic GI normal to inspection, nondistended, normoactive bowel sounds, non-distended and no masses; Negative for non-tender Narrative: Mild paramedical tenderness. No peritoneal signs. Back/Spine no CVA tenderness General Back: Negative for CVA tenderness Cervical Spine: Negative for cervical spine tenderness Thoracic Spine / Upper Back: Negative for thoracic spinal tenderness Lumbar Spine / Lower Back: Negative for lumbar spinal tenderness Extremity normal to inspection General Extremety ED: Negative for edema or tenderness General Extremity: Negative for edema Neuro oriented x3 and CN's II-XII intact bilaterally Sensorium / Orientation: alert; Negative for orientation impaired, lethargic or stuporous Motor Exam: strength 5/5 throughout Psych mental status grossly normal Appearance: Negative for unkempt Attitude: No agitated Mood & Affect: Negative for depressed, anxious or tearful Skin no rashes or lesions noted and no wounds Rashes: No rashes noted Trauma: Negative for abrasion Wounds: Negative for wounds noted MDM MDM MDM Narrative Medical decision making narrative: 77-year-old female with fever and diarrhea. Reportedly UTI for her urologist she has been on antibiotics for 2 dosages. Today she was so weak she lowered her self to the ground at home. Did not get hurt but both she and with help from her could not get her up. Screening labs will be obtained. She looks dehydrated she is receiving IV fluids. Or I suspect she has some type of infection whether it is a UTI or a viral syndrome or something else. She may need to be admitted due to generalized weakness. Multiple repeat exams patient clinically looks much improved after IV fluids and IV antibiotics. Discussed with her and her at length. She has been up using her walker and getting to the bathroom without difficulty. I offered to have her stay since she was so weak at home, has an elevated white count and a UTI they both would prefer that she is discharged home with outpatient follow-up. I spoke with her urologist Dr. Amy Rodriguez, she will also do outpatient follow-up. Lab Data Attestation: I reviewed the patient's lab results. Lab results narrative: CBC shows no elevated white count 17.9. H&H 10.1 and 30.9. Platelets 220,000. Electrolytes sodium 136 gap of 7 BUN of 18 and creatinine of 0.8. Liver enzymes total bilirubin is up to 1.1 AST 321 ALT 131. UA shows 10-25 white cells 2+ bacteria occult blood positive. No nitrates. A culture will be sent. Chest x-ray shows no acute process. COVID and influenza are negative. CT flank study as requested by her urologist shows no signs of kidney stone or any other significant acute abnormality other than consistent with cystitis which she is being treated for UTI. Labs: Laboratory Results - last 24 hr 08/17/22 08/17/22 08/17/22 18:20 18:20 18:40 WBC 17.9 H RBC 3.56 L Hgb 10.1 L Hct 30.9 L MCV 86.8 MCH 28.4 MCHC 32.7 RDW Std Deviation 45.7 H RDW Coeff of Rainer 14.4 Plt Count 220 MPV 10.0 Immature Gran % (Auto) 0.600 Neut % (Auto) 86.9 H Lymph % (Auto) 7.2 L Jack % (Auto) 4.8 Eos % (Auto) 0.3 Baso % (Auto) 0.2 Absolute Neuts (auto) 15.6 H Absolute Lymphs (auto) 1.28 Nucleated RBC % 0 Sodium 136 Potassium 3.8 Chloride 103 Carbon Dioxide 26.0 Anion Gap 7 BUN 18 Creatinine 0.85 Estim Creat Clear Calc 51.89 Est GFR (MDRD) Af Amer 84 Est GFR (MDRD) Non-Af 69 BUN/Creatinine Ratio 21.2 H Glucose 141 H Calcium 9.1 Total Bilirubin 1.10 H AST 321 H ALT 131 H Alkaline Phosphatase 108 Total Protein 6.8 Albumin 3.2 Globulin 3.6 Albumin/Globulin Ratio 0.9 Urine Color Yellow Urine Clarity Clear Urine pH 6.0 Ur Specific [place] 1.010 Urine Protein 100 H Urine Glucose (UA) Normal Urine Ketones Negative Urine Occult Blood 150 H Urine Nitrite Negative Urine Bilirubin Negative Urine Urobilinogen Normal Ur Leukocyte Esterase 500 H Urine RBC 0 SEEN Urine WBC 10-25 SEEN Ur Squamous Epith Cells 0-5 SEEN Urine Bacteria 2+ Urine Mucus 0 SEEN Radiography Chest X-Ray - ED: 1 View, Read by ED Physician, Read by Radiologist, Heart, Lungs, Mediastinum, Bony Structures, No Acute Disease and Chronic Changes Diagnostic Testing: Clinical Impression(s) from Imaging Studies Chest X-Ray 08/17/22 18:37 IMPRESSION: There are no acute findings. Electronically Signed: Miguel Angel De León MD at 19:01 EST , Abdomen/Pelvis CT 08/17/22 21:38 IMPRESSION: Formation surrounding the bladder concerning for cystitis. There is mild bilateral perinephric stranding, senescent but can also be seen on the prior study from clinical setting. No evidence of renal stone or obstructive uropathy. Bilateral indeterminate density renal lesions, unchanged on the right and decreased in size on the left compared with July 09, 2019 compatible with a benign process. Colonic diverticulosis without evidence of diverticulitis. Splenic sequela of prior granulomatous disease Minimal hiatal hernia. Electronically Signed: Gus Celaya MD at 23:00 EST , Chest x-ray, portable, single view shows no acute abnormality as interpreted both by myself and the radiologist. Rhythm Strip Rhythm Strip: Sinus Rhythm Rate: 70 Ectopy: None EKG Initial EKG: Attestation: I personally reviewed and interpreted this EKG as follows: Interpretation: Sinus Rhythm and No Acute Injury Pattern Comments: Normal sinus rhythm rate of 70 no acute signs of MS or ischemia. Discharge Plan Triage Chief Complaint: Weakness ED Provider: Bj Franco Dx/Rx/DC Orders Clinical Impression: Acute UTI, Leukocytosis, Generalized weakness, History of diabetes mellitus Prescriptions: New cephalexin 500 mg capsule 500 mg PO Q8H 10 Days Qty: 30 0RF No Action calcium carbonate 500 mg (1,250 mg)-vitamin D3 125 unit tablet 500 mg(1,250mg) -125 unit tablet 1 tab PO DAILY Adult Probiotic 3 billion cell capsule 3,000 mmu cells PO BID cholecalciferol (vitamin D3) 2,000 unit capsule 2,000 unit PO DAILY Prilosec OTC 20 mg tablet,delayed release (DR/EC) 20 mg PO DAILY PRN (Reason: Heartburn) (DME) FreeStyle Precision Esvin Strips Strip See Rx Instructions .ROUTE .MEDSUPPLY Qty: 100 6RF Rx Instructions: 3x/day Humalog Mix 50-50 KwikPen 100 unit/mL (50-50) insulin pen 19 unit subcut DAILY Rx Instructions: 14u 22u 25u latanoprost 0.005 % drops 1 ml ophthalmic (eye) DAILY Label Comments: INSTILL 1 DROP INTO BOTH EYES EVERY DAY AT NIGHT metronidazole 500 mg tablet PO Label Comments: TAKE 1 TABLET ORALLY 2 TIMES PER DAY FOR 7 DAYS folic acid 1 mg tablet PO Label Comments: TAKE 1 TABLET BY MOUTH EVERY DAY X14 DAY(S) Humalog Mix 50-50 KwikPen 100 unit/mL (50-50) insulin pen 25 unit SUBCUT DINNER estradiol [Estrace] 0.01 % (0.1 mg/gram) cream 1 appful vaginal DAILY Rx Instructions: for 14 days mupirocin 2 % ointment 1 applic topical TID Qty: 22 1RF aspirin [Adult Aspirin Regimen] 81 mg tablet,delayed release (DR/EC) 81 mg PO DAILY doxycycline hyclate 100 mg capsule 100 mg PO DAILY ferrous sulfate 325 mg (65 mg iron) tablet 325 mg PO DAILY meloxicam 7.5 mg tablet 7.5 mg PO DAILY tramadol 50 mg tablet 50 mg PO Q6H PRN cyanocobalamin (vitamin B-12) 1,000 MCG capsule 1,000 mcg PO DAILY calcium carbonate 500 MG tablet 500 mg PO Q4H PRN PRN (Reason: HEARTBURN) 0RF omega-3 fatty acids-fish oil 1 EACH capsule 1 ea PO DAILY Humalog Mix 50-50 KwikPen 100 unit/mL (50-50) Insulin Pen 22 unit SUBCUT DAILY d-mannose 500 mg Capsule 2,100 mg PO BID acetaminophen [Tylenol] 325 mg Tablet 325 mg PO DAILY ascorbic acid (vitamin C) [Vitamin C] 500 mg Tablet 500 mg PO DAILY amlodipine 5 mg tablet 5 mg PO DAILY Qty: 90 3RF lisinopril 40 mg tablet 40 mg PO DAILY Qty: 90 3RF Primary Care Provider: Luther Torre Referrals: Luther Torre MD [Primary Care Provider] - Amy Rodriguez MD [Med Staff - Active Staff] - As soon as possible Activity Restrictions/Additional Instructions: Plenty of fluids and rest. I sent in a new antibiotic prescription. Seem antibiotic would not be Keflex 500 mg 3 times a day. We will give you a dose here tonight before you go. Take 500 mg Friday morning. 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 A urine culture was sent they can follow that up in Dr. Rodriguez's office. Take it easy next few days. Return if you are feeling worse. Disposition Disposition: Home, Self Care
[2022-08-17 18:34] LABS: Absolute Lymphocyte Count 1.28 X10^3/uL (0.83-4.51); Absolute Neutrophil Count 15.6 X10^3/uL (2.0-7.7); Basophil# 0.03 X10^3/uL; Basophil% 0.2 % (0-1); Eosinophil# 0.05 X10^3/uL; Eosinophils% 0.3 % (0-5); Hematocrit 30.9 % (37-47); Hemoglobin 10.1 g/dL (12.0-15.0); Lymphocyte # 1.28 X10^3/ul (0.83-4.51); Lymphocyte % 7.2 % (19-41); Mean Corp Hgb Conc 32.7 g/dL (32-36); Mean Corpuscular Hgb 28.4 pg (27.0-32.0); Mean Corpuscular Volume 86.8 fL (81-99); Monocyte# 0.85 X10^3/uL; Monocyte% 4.8 % (0-10); NRBC Flagged by Analyzer 0 % (0-5); Neutrophil # 15.55 X10^3/uL (2.7-7.7); Neutrophil % 86.9 % (47-70); Platelet Count 220 K/mm3 (150-450); RBC Distribution Width CV 14.4 % (11.6-14.6); RBC Distribution Width SD 45.7 fl (35.1-43.9); Red Blood Count 3.56 M/mm3 (4.2-5.4); White Blood Count 17.9 K/mm3 (4.4-11.0)
--- NOTE | 2022-08-17 18:37 | RAD_ITS ---
STUDY: X-RAY CHEST REASON FOR EXAM: Female, 77 years old. fever TECHNIQUE: XR Chest 1 View COMPARISON: None FINDINGS: There is atherosclerotic calcification of the aortic arch with tortuosity. There are diffuse degenerative changes of the visualized thoracic spine. There is degenerative osteoarthritis of the bilateral shoulders. There is no demonstrated pleural abnormality. Normal size heart. Normal mediastinum and [place]. Normal visualized pulmonary arteries. There is no demonstrated abnormality of the visualized soft tissue structures of the upper abdomen. RAD/Chest 1 View (Portable) IMPRESSION: There are no acute findings. Electronically Signed: Miguel Angel De León MD at 19:01 EST ,
[2022-08-17 18:44] LABS: Mucous, Urine 0 SEEN /hpf (<or=2+); Red Blood Cells-Urine 0 SEEN /hpf (0-5)
[2022-08-17] MEDS: 0.9% Normal Saline 1,000 ML 1000 ML IV (18:44)
[2022-08-17 18:45] VITALS: BP 149/57; PULSE 69; RESP 23; TEMP 37.2; O2SAT 94
[2022-08-17 18:53] LABS: Color, Urine Yellow (Yellow); Glucose, Dipstick Normal (Normal); Ketone-Dipstick Negative (Negative); Leukocyte Esterase-Dipstick 500 /ul (Negative); Nitrite-Dipstick Negative (Negative); Occult Blood-Urine 150 /ul (Negative); Protein-Dipstick 100 mg/dl (Negative); Urine Bilirubin Dipstick Negative (Negative); Urine Clarity Clear (Clear); Urine Urobilinogen Normal (Normal)
[2022-08-17 19:03] LABS: ALB/GLOB Ratio 0.9 RATIO (0.9-2.4); AST(SGOT) 321 U/L (15-37); Alanine Aminotransfer ALT/SGPT 131 U/L (13-56); Albumin, Serum 3.2 g/dL (3.2-5.0); Alkaline Phosphatase 108 U/L (45-117); Anion Gap 7 (5-15); BUN 18 mg/dL (7-18); BUN/Creat Ratio 21.2 RATIO (10-20); Calcium,Total 9.1 mg/dL (8.5-10.1); Chloride 103 mmol/L (98-107); Creatinine, Serum 0.85 mg/dL (0.55-1.02); EST Glomerular Filtration Rate 69 mL/min (>60); Est Glom Filt Rate - Afr Amer 84 mL/min (>60); Estimated Creatinine Clearance 51.89 ml/min; Globulin 3.6 g/dL (2.2-4.2); Glucose 141 mg/dL (74-106); Potassium 3.8 mmol/L (3.5-5.1); Protein, Total 6.8 g/dL (6.4-8.2); Sodium Level 136 mmol/L (136-145)
[2022-08-17 19:07] VITALS: BP 145/56; PULSE 73; RESP 19; O2SAT 95
[2022-08-17 19:08] LABS: Bacteria 2+ /hpf (None Seen); Squamous Epithelial Cells - UA 0-5 SEEN /hpf (5-10); White Blood Cells 10-25 SEEN /hpf (0-5)
[2022-08-17 21:00] VITALS: BP 146/56; PULSE 65; RESP 15; O2SAT 96
--- NOTE | 2022-08-17 21:38 | CT_ITS ---
INDICATION: kidney stone hx EXAMINATION: CT ABDOMEN AND PELVIS WITHOUT CONTRAST - CT Abdomen And Pelvis W/O Contrast Injection TECHNIQUE: Helically acquired images were obtained of the abdomen and pelvis without oral or IV contrast. A radiation dose optimization technique was used for this scan. IV Contrast dosage and agent: None. Oral contrast: None. COMPARISON: July 09, 2019. FINDINGS: LOWER CHEST: Lung bases are clear. No cardiomegaly or pericardial effusion. LIVER: Homogeneous. No focal mass. GALLBLADDER AND BILIARY TREE: Absent gallbladder. No intra- or extrahepatic biliary ductal dilation. PANCREAS: No focal cystic or solid mass. SPLEEN: Scattered calcified sequela prior granulomatous disease.. ADRENAL GLANDS: No nodules. KIDNEYS AND URETERS: Right renal 1 cm indeterminate lateral exophytic lesion coronal image 70 and left renal 1.5 cm indeterminate medial exophytic lesion with peripheral calcification axial image 59. Normal renal size and position. No hydronephrosis. Mild bilateral perinephric stranding is likely senescent. Unremarkable ureters. Mild perivesical stranding axial image 160. PERITONEUM: No ascites or free air. No other fluid collection. BOWEL: Minimal hiatal hernia. No evidence of acute appendicitis. No stomach or bowel distension. No focal inflammatory change. Colonic diverticulosis without evidence of diverticulitis. LYMPH NODES: No enlarged mesenteric or retroperitoneal lymph nodes. VESSELS: Aorta is non-dilated. URINARY BLADDER: Unremarkable. REPRODUCTIVE ORGANS: Unremarkable uterus and adnexa.. ABDOMINAL WALL: No discrete abdominal or pelvic wall hernia. BONES: No lytic or blastic abnormality. CT/Abdomen/Pelvis without Cont IMPRESSION: Formation surrounding the bladder concerning for cystitis. There is mild bilateral perinephric stranding, senescent but can also be seen on the prior study from clinical setting. No evidence of renal stone or obstructive uropathy. Bilateral indeterminate density renal lesions, unchanged on the right and decreased in size on the left compared with July 09, 2019 compatible with a benign process. Colonic diverticulosis without evidence of diverticulitis. Splenic sequela of prior granulomatous disease Minimal hiatal hernia. Electronically Signed: Gus Celaya MD at 23:00 EST ,
[2022-08-17 23:05] VITALS: BP 140/64; PULSE 69; RESP 50; O2SAT 95
[2022-08-17] MEDS: Cephalexin 250 MG Capsule 500 MG PO (23:25)
== END 2022-08-17 23:31 | disposition home or self-care (01) ==
PROVIDERS: Emergency Provider Emergency Medicine; PCP Internal Medicine; Visit Provider Emergency Medicine
DX: N39.0 Urinary tract infection, site not specified (principal); E11.40 Type 2 diabetes mellitus with diabetic neuropathy, unspecified; Z79.4 Long term (current) use of insulin; R50.9 Fever, unspecified; I10 Essential (primary) hypertension; R19.7 Diarrhea, unspecified; D72.829 Elevated white blood cell count, unspecified; K21.9 Gastro-esophageal reflux disease without esophagitis; E66.9 Obesity, unspecified; Z79.82 Long term (current) use of aspirin; Z79.899 Other long term (current) drug therapy
CPT/HCPCS: 71045; 74176; 80053; 81001; 85025; 87077; 87086; 87088; 87186; 87428; 93005; 96360; 99285; J7030

== ENCOUNTER → 2022-08-20 | Outpatient (CLI) | payer MEDICARE, OTHER, SELFPAY ==
[2022-08-20 15:04] LABS: Hematocrit 34.7 % (37-47); Hemoglobin 10.8 g/dL (12.0-15.0); Mean Corp Hgb Conc 31.1 g/dL (32-36); Mean Corpuscular Hgb 28.2 pg (27.0-32.0); Mean Corpuscular Volume 90.6 fL (81-99); Mean Platelet Vol. 10.6 fl (6.2-12.0); Platelet Count 259 K/mm3 (150-450); RBC Distribution Width CV 14.6 % (11.6-14.6); RBC Distribution Width SD 47.7 fl (35.1-43.9); Red Blood Count 3.83 M/mm3 (4.2-5.4); White Blood Count 9.8 K/mm3 (4.4-11.0)
== END | disposition home or self-care (01) ==
LOC: MTLAB 11:37
PROVIDERS: PCP Internal Medicine; Referring Provider Urology; Visit Provider Urology
DX: N39.0 Urinary tract infection, site not specified (principal)
CPT/HCPCS: 36415; 85027

== ENCOUNTER → 2023-03-13 | Outpatient (CLI) | payer MEDICARE, OTHER, SELFPAY ==
--- NOTE | 2023-03-13 14:06 | BI_ITS ---
MAMMOGRAPHY - BILATERAL SCREENING REASON FOR EXAM: Female, 77 years old. Routine annual screening examination. PERTINENT HISTORY: Aunt with breast cancer. TECHNIQUE: Digital bilateral breast miguel (3D mammographic acquisition) in the CC and MLO projections. 2-D mediolateral oblique (MLO) and craniocaudad (CC) views of both breasts were obtained. CAD: Full Field Digital Mammography with Computer Added Detection was performed. COMPARISON: Comparison is made with prior study dated February 21, 2021 and February 21, 2020. FINDINGS: Breast Composition: There are scattered areas of fibroglandular density. There are no dominant masses or suspicious calcifications. No other significant abnormalities are identified. There has been no significant change since the prior study. BI/SCRN MAMM (CAD)W/MIGUEL BILAT IMPRESSION: Stable bilateral screening mammogram. Yearly follow-up mammogram recommended. (A) ASSESSMENT CATEGORY: BIRADS Category 1: Negative. A letter regarding these results will be sent to the patient by the facility within 30 days. Approximately 10% of breast cancers are not detected by mammography. A normal mammogram should not delay biopsy of a clinically suspicious abnormality. [id number] Electronically Signed: Thomas Bhatt MD at 8:43 EDT ,
== END | disposition home or self-care (01) ==
LOC: OPBI 14:04
PROVIDERS: PCP Internal Medicine; Referring Provider Internal Medicine; Visit Provider Internal Medicine
DX: Z12.31 Encounter for screening mammogram for malignant neoplasm of breast (principal); Z80.3 Family history of malignant neoplasm of breast
CPT/HCPCS: 77063; 77067

== ENCOUNTER → 2023-03-31 | Outpatient (CLI) | payer MEDICARE, OTHER, SELFPAY ==
[2023-03-31 14:04] LABS: ALB/GLOB Ratio 0.8 RATIO (0.9-2.4); AST(SGOT) 37 U/L (15-37); Alanine Aminotransfer ALT/SGPT 28 U/L (13-56); Albumin, Serum 3.5 g/dL (3.2-5.0); Alkaline Phosphatase 83 U/L (45-117); Anion Gap 7 (5-15); BUN 14 mg/dL (7-18); BUN/Creat Ratio 12.1 RATIO (10-20); Calcium,Total 9.7 mg/dL (8.5-10.1); Chloride 101 mmol/L (98-107); Cholesterol 165 mg/dL (200); Creatinine, Serum 1.16 mg/dL (0.55-1.02); EST Glomerular Filtration Rate 48 mL/min (>60); Est Glom Filt Rate - Afr Amer 58 mL/min (>60); Globulin 4.3 g/dL (2.2-4.2); Glucose 192 mg/dL (74-106); High Density Lipoprotein 51 mg/dL; Potassium 4.7 mmol/L (3.5-5.1); Protein, Total 7.8 g/dL (6.4-8.2); Sodium Level 136 mmol/L (136-145); Thyroid Stim Hormone (TSH) 0.59 uIU/mL (0.358-3.74); Triglycerides 184 mg/dL; Very Low Density Lipoprotein 37 mg/dL (5-40)
[2023-03-31 14:11] LABS: Microalbumin:Creatinine Ratio 103.8 mg/g CRE (<30 mg/g CRE)
== END | disposition home or self-care (01) ==
LOC: BIMLAB 10:39
PROVIDERS: PCP Internal Medicine; Referring Provider Internal Medicine Endocrinology, Diabetes & Metabolism; Visit Provider Internal Medicine Endocrinology, Diabetes & Metabolism
DX: E55.9 Vitamin D deficiency, unspecified (principal); E11.22 Type 2 diabetes mellitus with diabetic chronic kidney disease; N18.31 Chronic kidney disease, stage 3a; G62.9 Polyneuropathy, unspecified; E66.9 Obesity, unspecified; I12.9 Hypertensive chronic kidney disease with stage 1 through stage 4 chronic kidney disease, or unspecified chronic kidney disease
CPT/HCPCS: 36415; 80053; 80061; 82043; 82306; 82570; 84443

== ENCOUNTER → 2023-05-29 | Outpatient (CLI) | payer MEDICARE, OTHER, SELFPAY ==
[2023-05-29 15:27] LABS: Absolute Lymphocyte Count 4.08 X10^3/uL (0.83-4.51); Absolute Neutrophil Count 6.3 X10^3/uL (2.0-7.7); Basophil# 0.05 X10^3/uL; Basophil% 0.4 % (0-1); Eosinophil# 0.23 X10^3/uL; Hematocrit 37.1 % (37-47); Hemoglobin 11.7 g/dL (12.0-15.0); Lymphocyte # 4.08 X10^3/ul (0.83-4.51); Lymphocyte % 35.5 % (19-41); Mean Corp Hgb Conc 31.5 g/dL (32-36); Mean Corpuscular Volume 91.8 fL (81-99); Mean Platelet Vol. 10.2 fl (6.2-12.0); Monocyte# 0.81 X10^3/uL; NRBC Flagged by Analyzer 0 % (0-5); Neutrophil # 6.25 X10^3/uL (2.7-7.7); Neutrophil % 54.4 % (47-70); Platelet Count 305 K/mm3 (150-450); RBC Distribution Width CV 14.8 % (11.6-14.6); RBC Distribution Width SD 50.2 fl (35.1-43.9); Red Blood Count 4.04 M/mm3 (4.2-5.4); White Blood Count 11.5 K/mm3 (4.4-11.0)
[2023-05-29 15:36] LABS: Anion Gap 6 (5-15); BUN 20 mg/dL (7-18); BUN/Creat Ratio 18.9 RATIO (10-20); Calcium,Total 9.9 mg/dL (8.5-10.1); Chloride 105 mmol/L (98-107); Creatinine, Serum 1.06 mg/dL (0.55-1.02); EST Glomerular Filtration Rate 53 mL/min (>60); Est Glom Filt Rate - Afr Amer 65 mL/min (>60); Glucose 128 mg/dL (74-106); Potassium 4.3 mmol/L (3.5-5.1); Sodium Level 138 mmol/L (136-145)
== END | disposition home or self-care (01) ==
LOC: BIMLAB 13:54
PROVIDERS: PCP Internal Medicine; Referring Provider Internal Medicine; Visit Provider Internal Medicine
DX: I10 Essential (primary) hypertension (principal)
CPT/HCPCS: 36415; 80048; 85025

== ENCOUNTER → 2023-06-05 | Outpatient (CLI) | payer MEDICARE, OTHER, SELFPAY ==
--- NOTE | 2023-06-05 09:15 | BD_ITS ---
STUDY: DUAL ENERGY X-RAY ABSORPTIOMETRY / DXA REASON FOR EXAM: Female, 77 years old. Post menopausal TECHNIQUE: Bone Mineral Density (BMD) measurements of lumbar spine and bilateral hips were obtained. COMPARISON: None. FINDINGS: Lumbar Spine (L1-L4): g/cm2 (1.069) / T-score (0.5) / Z-score (3.0) Findings are suggestive of normal bone density with a low fracture risk. Left Femur Total: g/cm2 (1.020) / T-score (0.6) / Z-score (2.6) Left Femoral Neck: g/cm2 (0.763) / T-score (-0.8) / Z-score (1.4) Right Femur Total: g/cm2 (0.969) / T-score (0.2) / Z-score (2.2) Right Femoral Neck: g/cm2 (0.746) / T-score (-0.9) / Z-score (1.3) BD/Dexa Bone Density Study IMPRESSION: The patient is considered normal as outlined below according to World Doug Organization (WHO) criteria with a low fracture risk. Reference Information: The T-score is the number of standard deviations above or below the standard which is normal for young adults at their peak bone mineral density. The World Health Organization (WHO) interprets the T-scores as follows: Above -1 Normal bone density Between -1 and -2.5 Osteopenia Equal to / or below -2.5 Osteoporosis As a practical clinical guideline, osteopenia may be graded as follows: Mild -1 through -1.5 Moderate -1.6 through -2.0 Severe -2.1 through -2.4 The Z-score is the number of standard deviations above or below age-matched controls. A Z-score of less than -1.5 would be considered abnormal. References: 1. NIH Osteoporosis and Related Bone Diseases www osteo.org 2. International Society for Clinical Densitometry www iscd.org 3. National Osteoporosis Foundation www nof.org Electronically Signed: Thomas Bhatt MD at 10:55 EDT ,
== END | disposition home or self-care (01) ==
LOC: OPBD 09:10
PROVIDERS: PCP Internal Medicine; Referring Provider Internal Medicine; Visit Provider Internal Medicine
DX: M81.0 Age-related osteoporosis without current pathological fracture (principal)
CPT/HCPCS: 77080

== ENCOUNTER → 2024-01-23 | Outpatient (CLI) | payer MEDICARE, OTHER, SELFPAY ==
[2024-01-23 15:28] LABS: Hematocrit 31.3 % (37-47); Hemoglobin 9.4 g/dL (12.0-15.0); Mean Corpuscular Hgb 28.1 pg (27.0-32.0); Mean Corpuscular Volume 93.7 fL (81-99); Mean Platelet Vol. 9.8 fl (6.2-12.0); Platelet Count 390 K/mm3 (150-450); RBC Distribution Width CV 14.9 % (11.6-14.6); RBC Distribution Width SD 50.3 fl (35.1-43.9); Red Blood Count 3.34 M/mm3 (4.2-5.4)
== END | disposition home or self-care (01) ==
LOC: BIMLAB 12:59
PROVIDERS: PCP Internal Medicine; Visit Provider Physician Assistant Surgical
DX: D64.89 Other specified anemias (principal)
CPT/HCPCS: 36415; 85027

== ENCOUNTER → 2024-03-01 | Outpatient (CLI) | payer MEDICARE, OTHER, SELFPAY ==
--- NOTE | 2024-03-01 16:02 | CT_ITS ---
EXAM: CT ABDOMEN AND PELVIS WITHOUT AND WITH INTRAVENOUS CONTRAST CLINICAL INDICATION: UTI TECHNIQUE: Helically acquired images were obtained of the abdomen and pelvis without and with intravenous contrast. This CT exam was performed using one or more of the following dose reduction techniques: automated exposure control, adjustment of the mA and/or kV according to patient size, and/or use of iterative reconstruction technique. CONTRAST: 75 cc of Isovue-300 IV. RADIATION DOSE: CTDIvol = 17.89 mGy, DLP = 3331.02 mGy-cm COMPARISON: No relevant prior studies available. FINDINGS: LOWER THORAX: Coronary artery calcifications. Lung bases are clear. No cardiomegaly. No significant pericardial effusion. ABDOMEN: LIVER: Unremarkable. Homogeneous. No focal mass. GALLBLADDER AND BILE DUCTS: Cholecystectomy. No intra- or extrahepatic biliary ductal dilation. PANCREAS: Unremarkable. No focal cystic or solid mass. SPLEEN: Calcified granulomas in the spleen. ADRENALS: Unremarkable. No nodules. KIDNEYS AND URETERS: Unremarkable. Normal renal size and position. No hydronephrosis. STOMACH AND BOWEL: Numerous diverticula without diverticulitis. No stomach or bowel distention. PELVIS: APPENDIX: Normal appendix. BLADDER: Unremarkable. REPRODUCTIVE: Hysterectomy. ABDOMEN and PELVIS: INTRAPERITONEAL SPACE: Unremarkable. No ascites or other fluid collection. No free air. BONES/JOINTS: Left total hip arthroplasty. Components appear well seated. No suspicious lytic or blastic abnormality. SOFT TISSUES: Unremarkable. No discrete abdominal or pelvic wall hernia. VASCULATURE: See above. LYMPH NODES: Unremarkable. No enlarged lymph nodes. CT/CT Abd/Pelvis W/WO Contrast IMPRESSION: 1. No acute abdominal pelvic abnormality. 2. Left total hip arthroplasty. Components appear well seated. 3. Numerous diverticula without diverticulitis. 4. Coronary artery disease. 5. Cholecystectomy. 6. Hysterectomy. Electronically Signed: Nicholas Gu MD at 5:17 EDT ,
[2024-03-01 16:05] LABS: CREATININE FINGERSTICK 1.5 mg/dL (0.55-1.02)
== END | disposition home or self-care (01) ==
LOC: CT 15:29
PROVIDERS: PCP Internal Medicine; Referring Provider Urology; Visit Provider Urology
DX: N39.0 Urinary tract infection, site not specified (principal)
CPT/HCPCS: 74178; Q9967

== ENCOUNTER → 2024-03-15 | Outpatient (CLI) | payer MEDICARE, OTHER, SELFPAY ==
--- NOTE | 2024-03-15 10:47 | BI_ITS ---
MAMMOGRAPHY - BILATERAL SCREENING REASON FOR EXAM: Female, 78 years old. Routine annual screening examination. PERTINENT HISTORY: Aunt with breast cancer. TECHNIQUE: Digital bilateral breast migule (3D mammographic acquisition) in the CC and MLO projections. 2-D mediolateral oblique (MLO) and craniocaudad (CC) views of both breasts were obtained. CAD: Full Field Digital Mammography with Computer Added Detection was performed. COMPARISON: Comparison is made with prior study dated March 13, 2023 and February 23, 2021. FINDINGS: Breast Composition: There are scattered areas of fibroglandular density. There are no dominant masses or suspicious calcifications. No other significant abnormalities are identified. There has been no significant change since the prior study. BI/SCRN MAMM (CAD)W/MIGUEL BILAT IMPRESSION: Stable bilateral screening mammogram. Yearly follow-up mammogram recommended. (A) ASSESSMENT CATEGORY: BIRADS Category 1: Negative. A letter regarding these results will be sent to the patient by the facility within 30 days. Approximately 10% of breast cancers are not detected by mammography. A normal mammogram should not delay biopsy of a clinically suspicious abnormality. [id number] Electronically Signed: Thomas Bhatt MD at 11:33 EDT ,
== END | disposition home or self-care (01) ==
LOC: OPBI 10:47
PROVIDERS: PCP Internal Medicine; Referring Provider Internal Medicine; Visit Provider Internal Medicine
DX: Z12.31 Encounter for screening mammogram for malignant neoplasm of breast (principal); Z80.3 Family history of malignant neoplasm of breast
CPT/HCPCS: 77063; 77067

== ENCOUNTER → 2024-04-05 | Outpatient (CLI) | payer MEDICARE, OTHER, SELFPAY ==
[2024-04-05 17:48] LABS: Absolute Lymphocyte Count 3.47 X10^3/uL (0.83-4.51); Absolute Neutrophil Count 5.6 X10^3/uL (2.0-7.7); Basophil# 0.04 X10^3/uL; Basophil% 0.4 % (0-1); Hematocrit 38.5 % (37-47); Hemoglobin 11.8 g/dL (12.0-15.0); Lymphocyte # 3.47 X10^3/ul (0.83-4.51); Lymphocyte % 34.7 % (19-41); Mean Corp Hgb Conc 30.6 g/dL (32-36); Mean Corpuscular Hgb 27.8 pg (27.0-32.0); Mean Corpuscular Volume 90.8 fL (81-99); Mean Platelet Vol. 10.1 fl (6.2-12.0); Monocyte# 0.64 X10^3/uL; Monocyte% 6.4 % (0-10); NRBC Flagged by Analyzer 0 % (0-5); Neutrophil # 5.62 X10^3/uL (2.7-7.7); Neutrophil % 56.1 % (47-70); Platelet Count 321 K/mm3 (150-450); RBC Distribution Width CV 14.9 % (11.6-14.6); RBC Distribution Width SD 49.3 fl (35.1-43.9); Red Blood Count 4.24 M/mm3 (4.2-5.4)
[2024-04-05 18:01] LABS: CRP 6.84 mg/L (0.0-3.0)
[2024-04-05 18:38] LABS: Erythrocyte Sedimentation Rate 32 mm/hr (0-30)
== END | disposition home or self-care (01) ==
LOC: MTLAB 15:34
PROVIDERS: PCP Internal Medicine; Referring Provider Specialist; Visit Provider Specialist
DX: T84.033A Mechanical loosening of internal left knee prosthetic joint, initial encounter (principal); M25.562 Pain in left knee; X58.XXXA Exposure to other specified factors, initial encounter
CPT/HCPCS: 36415; 85025; 85652; 86140

== ENCOUNTER → 2024-04-09 | Outpatient (CLI) | payer MEDICARE, OTHER, SELFPAY ==
[2024-04-09 09:59] LABS: Red Cell Count/Body Fluid 0.003 10^6/ul
[2024-04-09 10:42] LABS: Body Fluid Total Cells Counted 19.284 10^3/ul; White Blood Count/Body Fluid 19.155 10^3/uL
[2024-04-09 10:43] LABS: Body Fluid Mononuclear WBC % 18.5 %; Body Fluid Polynuclear WBC # 15.615 10^3/uL; Body Fluid Polynuclear WBC % 81.5 %
[2024-04-09 11:06] LABS: Appearance/Body Fluid CLOUDY; Color/Body Fluid LT YEL; Source- Body Fluid OTHER
[2024-04-09 12:37] LABS: Body Fluid QC Type(s) BF1Q,BF2Q; Lymphocytes 4 %; Monocytes 7 %; Neutrophil (Segs) 89 %
[2024-04-12 12:27] LABS: Pathologist Comment/Body Fluid Reviewed
[2024-04-12 14:36] LABS: Auto B Fluid Analyzer BKGD Ct COUNTS W/IN LIMITS (W/IN LIMITS)
== END | disposition home or self-care (01) ==
LOC: LABSPEC 08:34 → LAB 08:39
PROVIDERS: PCP Internal Medicine; Visit Provider Specialist
DX: T84.84XA Pain due to internal orthopedic prosthetic devices, implants and grafts, initial encounter (principal)
CPT/HCPCS: 87015; 87070; 87075; 87101; 87116; 87205; 87206; 89050

== ENCOUNTER 2024-04-30 12:46 | Inpatient (IN) | payer MEDICARE, OTHER, SELFPAY ==
[2024-04-30 13:02] VITALS: BMI 32.8
[2024-04-30 13:24] VITALS: BP 141/59; PULSE 105; RESP 18; TEMP 36.9; O2SAT 92
--- NOTE | 2024-04-30 14:25 | HP.PCM_ITS ---
[facility] - General General Date of Admission: 04/30/24 Date of Service: 04/30/24 Chief Complaint: Here for rehabilitation, intravenous antibiotics. [facility] Narrative ARSALAN SPENCE, is a 78 Female who presents with followin04/27/2024 Admit to [facility]. 04/27/2024 Dr. Casillas performed revision left total knee arthroplasty. Left total knee explant, placement of anti-articulating antibiotic spacer. 04/28/2024 Sitting in bed, vaginal burning after Hammer catheter removal. History of recurrent UTI. Tylenol, Oxycodone for pain control. Aspirin 81mg twice daily x 4 weeks DVT prophylaxis. 50% partial weight bearing LLE with knee immobilizer x 2 weeks. Rocephin 2gm iv q24, Vancomycin 1.25gm iv q24 via PICC x [address] Bowden. Wound vac left knee x 1 week. Bowel regimen for constipation. Plan discharge to TCU. 04/28/2024 Normal Saline 1 liter IV for hyperkalemia K 5.3. Urinalysis for dysuria. Straight cath for urinary retention. 04/29/2024 Surgical cultures negative to date. Dr. Bowden to follow. Dr. Rodriguez to follow for urinary retention, recurrent UTI. 04/30/2024 Admit to TCU with debility, here for rehabilitation, strengthening, intravenous antibiotics, prior to discharge home with . [facility] Medical History Epistaxis Postoperative anemia Health care maintenance Abnormal urinalysis Flu vaccine need Vaginal irritation Furunculosis Preoperative evaluation to rule out surgical contraindication Renal stone Wears hearing aid Wears glasses Insulin dependent diabetes mellitus Bladder disease Back pain Dietary restriction Difficulty swallowing History of diverticulitis Gastric reflux Non-smoker History of pain when walking History of edema History of echocardiogram Hypertension History of irregular heartbeat Osteoarthritis Chronic back pain Balance disorder Lumbar radiculopathy Neuropathy Obesity Chronic UTI (urinary tract infection) Glaucoma Essential (primary) hypertension Home Medications ?Medication ?Instructions ?Recorded ?Last Taken ?Type cholecalciferol (vitamin D3) 50 2,000 unit PO DAILY supplement 07/20/19 04/30/24 08:25 History mcg (2,000 unit) capsule lactobacillus combination no.8 3 3,000 mmu cells PO BID probiotic 07/20/19 Unknown History billion cell capsule (Adult Probiotic) omeprazole magnesium 20 mg 20 mg PO DAILY PRN Heartburn 07/20/19 04/30/24 08:25 History tablet,delayed release (Prilosec OTC) cyanocobalamin (vitamin B-12) 1,000 mcg PO DAILY supplement 06/14/20 04/30/24 08:25 History 1,000 mcg capsule omega-3 fatty acids-fish oil 340 1 ea PO DAILY SUPPLEMENT 08/30/20 Unknown History mg-1,000 mg capsule blood sugar diagnostic (FreeStyle #100 ea 07/16/21 Unknown Rx Precision Esvin Strips) latanoprost 0.005 % eye drops 1 drp ophthalmic (eye) QHS EYES 12/24/21 Unknown History d-mannose 500 mg capsule 2,100 mg PO BID 03/29/22 Unknown History estradiol 0.01% (0.1 mg/gram) 1 appful vaginal DAILY 04/10/22 Unknown History vaginal cream (Estrace) flash glucose sensor (FreeStyle #1 ea 01/23/23 Unknown Rx Shani 2 Sensor kit) trimethoprim 100 mg tablet mg PO 05/29/23 Unknown History Handicap Placard #1 ea 12/24/23 Unknown Rx acetaminophen 325 mg tablet 500 mg PO DAILY PAIN 01/29/24 Unknown History (Tylenol) insulin lispro protamine-lispro 25 unit subcut TID Diabetes 01/29/24 04/30/24 11:25 History 100 unit/mL (50-50) subcutaneous pen (Humalog Mix 50-50 KwikPen) folic acid 1 mg tablet 1 mg PO DAILY supplement #90 tabs 02/11/24 04/30/24 08:25 Rx lisinopril 40 mg tablet 40 mg PO DAILY bp #90 tabs 03/12/24 04/30/24 08:25 Rx ferrous sulfate 325 mg (65 mg 325 mg PO DAILY supplement #90 tabs 04/16/24 04/30/24 11:25 Rx iron) tablet acetaminophen 500 mg tablet 1,000 mg PO BID PRN pain (scale 04/30/24 04/30/24 11:25 History score 1-3) amlodipine 5 mg tablet 5 mg PO QHS heart 04/30/24 04/29/24 09:50 History aspirin 81 mg tablet,delayed 81 mg PO BID DVT prophylaxis 04/30/24 04/30/24 08:25 History release calcium-vitamin D 1200 slow release 1 tab PO DAILY Supplement 04/30/24 04/30/24 08:25 History ceftriaxone 2 gram intravenous 2 g IV DAILY Infection 04/30/24 04/30/24 08:20 History solution oxycodone 5 mg tablet 5 - 10 mg PO Q4H PRN pain (scale 04/30/24 04/30/24 08:25 History score 4-6) sennosides 8.6 mg-docusate sodium 2 tab-cap PO BID PRN constipation 04/30/24 04/30/24 08:25 History 50 mg tablet (Senna with Docusate Sodium) vancomycin 2 gram intravenous 2 g IV Q24H Infection 04/30/24 04/29/24 12:05 History solution Allergy/AdvReac Type Severity Reaction Status Date / Time ciprofloxacin Allergy Severe impairment Verified 01/29/24 14:46 of motor skills hydrochlorothiazide Allergy Mild other Verified 04/30/24 14:11 gatifloxacin (From Tequin) Allergy Unknown Other Verified 04/30/24 14:11 lidocaine (From Xylocaine) Allergy Unknown Other Verified 04/30/24 14:11 Sulfa (Sulfonamide Allergy Unknown unknown Verified 01/29/24 14:46 Antibiotics) metformin AdvReac Intermediate loose Verified 01/29/24 14:46 stool, bladder infections sitagliptin (From Janumet) AdvReac Intermediate loose stool Verified 01/29/24 14:46 batroxobin AdvReac Unknown unknown Verified 01/29/24 14:46 exenatide (From Byetta) AdvReac Unknown unknown Verified 01/29/24 14:46 nizatidine (From Axid) AdvReac Unknown unknown Verified 01/29/24 14:46 sertraline (From Zoloft) AdvReac Unknown unknown Verified 01/29/24 14:46 simvastatin (From Zocor) AdvReac Unknown unknown Verified 01/29/24 14:46 trandolapril (From Mavik) AdvReac Unknown unknown Verified 01/29/24 14:46 betaxolol AdvReac Other Verified 01/29/24 14:46 doxazosin AdvReac Other Verified 01/29/24 14:46 olmesartan (From Benicar) AdvReac Diarrhea Verified 05/23/24 14:46 Family History Mother CVA (cerebral vascular accident) Aunt Breast cancer Surgical History S/P total hip arthroplasty S/P hip hemiarthroplasty History of total left hip replacement Hx of arthroscopic knee surgery Hx of eye surgery Hx of bilateral cataract extraction Hx of total knee arthroplasty Hx of knee surgery Hx of total knee arthroplasty H/O foot surgery H/O: hysterectomy History of cataract surgery H/O tubal ligation History of cholecystectomy History of tonsillectomy Social History (Updated 04/30/24 @ 14:[address] Ra Mccracken MD) household members: spouse Smoking Status: Never smoker alcohol intake: current alcohol intake frequency: a few times a week substance use type: does not use diet: diabetic well-balanced diet: daily or most days what type of physical activity do you participate in: walking frequency: 1-2 times per week ROS Constitutional Constitutional: Reports weakness; Denies chills, fever(s) or weight gain ENT HEENT: Denies headache(s), nasal congestion or nasal discharge Cardiovascular Cardiovascular: Denies chest pain or palpitations Respiratory/Chest Respiratory/Chest: Denies cough, excessive phlegm production or shortness of breath with exertion Gastrointestinal Gastrointestinal: Denies abdominal pain, nausea or vomiting Genitourinary Genitourinary: Denies dysuria Musculoskeletal Musculoskeletal: Reports joint pain and other Details: Left knee. ; Denies joint swelling Integumentary Integumentary: Denies rash or wounds Neurologic Neurologic: Denies focal weakness, numbness or tingling Psychiatric Psychiatric: Denies anxiety, auditory hallucinations, depression, homicidal ideation or suicidal ideation Vital Signs Vital Signs Vital Signs: 04/30/24 13:02 04/30/24 13:24 Temperature 98.4 F Temperature Source Temporal Pulse Rate 105 H Pulse Rhythm Regular Pulse Strength Normal (2+) Respiratory Rate 18 Respiratory Effort Normal Non-Labored Respiratory Depth Normal Respiratory Pattern Normal Blood Pressure 141/59 H Blood Pressure Mean 86 Blood Pressure Source Monitor Blood Pressure Position Sitting Blood Pressure Location Right Arm Pulse Ox 92 Oxygen Delivery Method Room Air Room Air Weight Weight: 92.17 kg Body Mass Index (BMI) 32.8 Physical Exam Const alert General Appearance: cooperative HEENT normocephalic Eyes PERRL and EOMs intact bilaterally Neck supple, no JVD and no carotid bruits Resp normal respiratory effort, normal air movement and clear to auscultation bilaterally Cardio regular rate and regular rhythm GI normal to inspection, nondistended, normoactive bowel sounds, non-tender and non-distended Bladder / Kidney Exam: catheter in place urethral Extremity normal capillary refill Extremity Narrative: Left lower extremity immobilizer, wound VAC. Right upper extremity PICC line. 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 Casillas, postoperative course complicated by urinary retention requiring hammer catheter, admitted to TCU with debility, here for rehabilitation, strengthening, intravenous antibiotics, prior to discharge home with . * Debility - PT/OT. * Pain - Tylenol 1000mg q6 prn pain (1-3), Oxycodone 5-10mg q4 prn pain (4-10). * Bowel - senna/colace 2 tablets bid prn. * Adult immunization - Administer pneumonia vaccine, covid vaccine, flu vaccine as appropriate. * DVT prophylaxis - Aspirin 81mg bidcm thru 05/30/2024. * Hypertension - Lisinopril 40mg daily, Amlodipine 5mg qhs. * Calcium deficiency - Calcium D 1 tablet daily. * Left prosthetic knee infection s/p explant/antibiotic spacer - Ceftriaxone 2gm iv q24, Vancomycin 2gm iv qday x 6 weeks via PICC, Consult Dr. Bowden to follow. * Vitamin D deficiency - D3 50mcg daily. * Vitamin B12 deficiency - B12 1000mcg daily. * Iron deficiency anemia - Ferrous sulfate 325mg daily. * Folate deficiency - Folic acid 1mg daily. * Diabetes Mellitus II - Lispro 25 units sc tidac. * Glaucoma - Latanoprost 1gtt ou qhs. * Hyperlipidemia - Canvas 3 1gm daily. * GERD - Pantoprazole 20mg daily * Urinary retention - indwelling hammer catheter, consult Dr. Rodriguez.
[2024-04-30] MEDS: oxyCODONE 5 MG Tablet PO ×2 (15:13→20:47)
[2024-04-30 15:48] LABS: Creatinine, Serum 0.78 mg/dL (0.55-1.02); EST Glomerular Filtration Rate 75 mL/min (>60); Est Glom Filt Rate - Afr Amer 91 mL/min (>60); Estimated Creatinine Clearance 66.28 ml/min
[2024-04-30 15:58] LABS: Vancomycin, Random Level 10.5 ug/mL (0.0-15.0)
--- NOTE | 2024-04-30 16:21 | PHA.PHARE_ITS ---
Consult Antibiotic Management Pharmacy has been consulted to manage selected antibiotic: Vancomycin Type of Intervention Type of Consult: New start Suspected Infection Suspected Infection: Other (LEFT PROSTHETIC KNEE INFECTION) Prior Doses of Antibiotics Prior Doses of Antibiotics Received/Current Regimen: the patient was on vancomycin 2000mg IV q24h at an outside facility before being admitted at [facility] Labs Labs: Creatinine 0.78 mg/dL (0.55-1.02) 04/30/24 15:27 Est GFR (MDRD) Af Amer 91 mL/min (>60) 04/30/24 15:27 Est GFR (MDRD) Non-Af 75 mL/min (>60) 04/30/24 15:27 Random Vancomycin 10.5 ug/mL (0.0-15.0) 04/30/24 15:27 Dosing Weight Weight used for dosin.2 kg Estimated Creatinine Clearance Estimated Creatinine Clearance: 66 ml/min Goal Trough Goal Trough: 15-20 mcg/mL Pharmacy Plan for Drug Dosing Pharmacy Plan for Drug Dosing: Upon admission to the TCU, a vancomycin level was obtained (drawn approx 27 hours after the most recent dose of 2000mg). That level was 10.5. It would have been a little higher if drawn closer to the 24-hr lexus but probably still not in goal range so will change dose to 1000mg IV q12h. Will order a vanc trough before the 4th dose. Pharmacy Service will continue to monitor and adjust dosing as required. Follow-Up Labs Follow-Up Labs: Trough: Vancomycin Date/Time Labs Ordered Labs to be done on [date and time ordered]: 05/02/24 03:30
[2024-04-30] MEDS: Vancomycin IV 1,000 MG/200 ML BAG 200 MG IV (16:24)
[2024-04-30 17:14] LABS: Bedside Glucose 114 mg/dL (74-106)
[2024-04-30] MEDS: Insulin Lispro 100 UNIT/ML INSULN.PEN 25 UNIT SC (17:50)
[2024-04-30] MEDS: Aspirin E.C. 81 MG Tablet PO (17:51)
[2024-04-30] MEDS: Latanoprost 0.005% 1 Bottle 1 DRP OPHTHALMIC (20:32)
[2024-04-30] MEDS: 0.9 % NaCl (Sterile) Posiflush 10 mL IV (20:33)
[2024-04-30] MEDS: amLODIPine 5 MG Tablet PO (20:34)
[2024-04-30 20:51] VITALS: BP 127/51; PULSE 75
[2024-04-30 21:32] LABS: Bedside Glucose 123 mg/dL (74-106)
[2024-05-01] MEDS: Vancomycin IV 1,000 MG/200 ML BAG 200 MG IV ×2 (04:17→16:28)
[2024-05-01] MEDS: 0.9 % NaCl (Sterile) Posiflush 10 mL IV ×3 (04:17→19:51)
[2024-05-01] MEDS: oxyCODONE 5 MG Tablet PO ×4 (04:24→21:50)
[2024-05-01 06:54] LABS: Bedside Glucose 184 mg/dL (74-106)
[2024-05-01 07:42] LABS: Absolute Lymphocyte Count 2.73 X10^3/uL (0.83-4.51); Absolute Neutrophil Count 6.6 X10^3/uL (2.0-7.7); Basophil# 0.04 X10^3/uL; Basophil% 0.4 % (0-1); Eosinophil# 0.28 X10^3/uL; Eosinophils% 2.6 % (0-5); Hematocrit 26.1 % (37-47); Hemoglobin 8.1 g/dL (12.0-15.0); Lymphocyte # 2.73 X10^3/ul (0.83-4.51); Lymphocyte % 25.8 % (19-41); Mean Corpuscular Hgb 28.1 pg (27.0-32.0); Mean Corpuscular Volume 90.6 fL (81-99); Mean Platelet Vol. 10.5 fl (6.2-12.0); Monocyte# 0.82 X10^3/uL; Monocyte% 7.8 % (0-10); NRBC Flagged by Analyzer 0 % (0-5); Neutrophil # 6.63 X10^3/uL (2.7-7.7); Neutrophil % 62.7 % (47-70); Platelet Count 206 K/mm3 (150-450); RBC Distribution Width CV 14.7 % (11.6-14.6); RBC Distribution Width SD 48.6 fl (35.1-43.9); Red Blood Count 2.88 M/mm3 (4.2-5.4); White Blood Count 10.6 K/mm3 (4.4-11.0)
[2024-05-01] MEDS: Insulin Lispro 100 UNIT/ML INSULN.PEN 25 UNIT SC ×2 (08:07→12:14)
[2024-05-01] MEDS: Lisinopril 40 MG Tablet PO (08:07)
[2024-05-01] MEDS: Pantoprazole Sodium 20 MG Tablet PO (08:07)
[2024-05-01] MEDS: Cholecalciferol (VIT D3) 25 MCG TABLET (1,000 UNITS) 50 MCG PO (08:07)
[2024-05-01] MEDS: Cyanocobalamin 500 MCG Tablet 1000 MCG PO (08:08)
[2024-05-01] MEDS: Aspirin E.C. 81 MG Tablet PO ×2 (08:08→16:28)
[2024-05-01] MEDS: Folic Acid 1 MG Tablet PO (08:08)
[2024-05-01] MEDS: Calcium Carb/Vitamin D 1 TABLET Tablet PO (08:08)
[2024-05-01 08:16] VITALS: BP 156/55; PULSE 72
[2024-05-01 08:30] LABS: Anion Gap 6 (5-15); BUN 20 mg/dL (7-18); Calcium,Total 8.8 mg/dL (8.5-10.1); Chloride 102 mmol/L (98-107); Creatinine, Serum 0.95 mg/dL (0.55-1.02); EST Glomerular Filtration Rate 60 mL/min (>60); Est Glom Filt Rate - Afr Amer 73 mL/min (>60); Estimated Creatinine Clearance 55.82 ml/min; Glucose 206 mg/dL (74-106); Potassium 4.1 mmol/L (3.5-5.1); Sodium Level 137 mmol/L (136-145)
[2024-05-01 08:51] LABS: Erythrocyte Sedimentation Rate 37 mm/hr (0-30)
[2024-05-01] MEDS: Ceftriaxone 2 GM in 0.9% Normal Saline (50mL MB+) 50 ML IV (09:57)
[2024-05-01] MEDS: Tuberculin,Purif.prot.deriv. 50 TU/ML Vial 0.1 ML ID (09:58)
[2024-05-01] MEDS: Ferrous Sulfate 325 MG Tablet PO (11:36)
[2024-05-01 11:46] LABS: Bedside Glucose 236 mg/dL (74-106)
[2024-05-01] MEDS: Glucerna Shake 120 ML LIQUID PO ×2 (12:15→16:34)
[2024-05-01 16:00] VITALS: BP 136/78; PULSE 97; RESP 16; TEMP 37.1; O2SAT 94
[2024-05-01 16:34] LABS: Bedside Glucose 70 mg/dL (74-106)
[2024-05-01 16:56] LABS: Bedside Glucose 75 mg/dL (74-106)
[2024-05-01 20:00] VITALS: PULSE 84; O2SAT 91
[2024-05-01 21:41] VITALS: BP 141/58; PULSE 74; O2SAT 91
[2024-05-01] MEDS: amLODIPine 5 MG Tablet PO (21:47)
[2024-05-01] MEDS: Latanoprost 0.005% 1 Bottle 1 DRP OPHTHALMIC (21:47)
[2024-05-01 23:12] LABS: Bedside Glucose 158 mg/dL (74-106)
[2024-05-02 03:05] VITALS: PULSE 78; O2SAT 93
[2024-05-02] MEDS: Vancomycin Trough/Random Due 1 LAB MC (03:57)
[2024-05-02 04:15] LABS: Vancomycin, Trough Level 15.9 ug/mL (5.0-15.0)
--- NOTE | 2024-05-02 04:30 | PCM.RX.CS ---
Consult Antibiotic Management Pharmacy has been consulted to manage selected antibiotic: Vancomycin Type of Intervention Type of Consult: Follow-up Labs Labs: Sodium 137 mmol/L (136-145) 05/01/24 08:10 Potassium 4.1 mmol/L (3.5-5.1) 05/01/24 08:10 Chloride 102 mmol/L (98-107) 05/01/24 08:10 Carbon Dioxide 29.0 mmol/L (21.0-32.0) 05/01/24 08:10 Anion Gap 6 (5-15) 05/01/24 08:10 BUN 20 mg/dL (7-18) H 05/01/24 08:10 Creatinine 0.95 mg/dL (0.55-1.02) 05/01/24 08:10 Est GFR (MDRD) Af Amer 73 mL/min (>60) 05/01/24 08:10 Est GFR (MDRD) Non-Af 60 mL/min (>60) 05/01/24 08:10 BUN/Creatinine Ratio 21.0 RATIO (10-20) H 05/01/24 08:10 Glucose 206 mg/dL (74-106) H 05/01/24 08:10 Vancomycin Trough 15.9 ug/mL (5.0-15.0) H 05/02/24 03:33 Random Vancomycin 10.5 ug/mL (0.0-15.0) 04/30/24 15:27 Pharmacy Plan for Drug Dosing Pharmacy Plan for Drug Dosing: Pharmacy Service will continue to monitor and adjust dosing as required. TROUGH 15.9 @ 11 HOURS. NO CHANGES, FOLLOW UP TROUGH IN 2 DAYS Follow-Up Labs Follow-Up Labs: Trough: Vancomycin Date/Time Labs Ordered Labs to be done on [date and time ordered]: 05/04 @ 9021
[2024-05-02] MEDS: Vancomycin IV 1,000 MG/200 ML BAG 200 MG IV ×2 (04:43→15:24)
[2024-05-02] MEDS: 0.9% Normal Saline (250mL Bag) 250 ML 200 ML IV (04:44)
[2024-05-02] MEDS: 0.9 % NaCl (Sterile) Posiflush 10 mL IV ×3 (05:55→21:16)
[2024-05-02 06:39] LABS: Bedside Glucose 193 mg/dL (74-106)
[2024-05-02] MEDS: Pantoprazole Sodium 20 MG Tablet PO (08:00)
[2024-05-02] MEDS: Insulin Lispro 100 UNIT/ML INSULN.PEN 25 UNIT SC ×3 (08:00→17:58)
[2024-05-02] MEDS: oxyCODONE 5 MG Tablet PO ×2 (08:00→15:24)
[2024-05-02] MEDS: Cyanocobalamin 500 MCG Tablet 1000 MCG PO (08:00)
[2024-05-02] MEDS: Cholecalciferol (VIT D3) 25 MCG TABLET (1,000 UNITS) 50 MCG PO (08:00)
[2024-05-02] MEDS: Folic Acid 1 MG Tablet PO (08:00)
[2024-05-02] MEDS: Lisinopril 40 MG Tablet PO (08:00)
[2024-05-02] MEDS: Aspirin E.C. 81 MG Tablet PO ×2 (08:00→17:59)
[2024-05-02] MEDS: Calcium Carb/Vitamin D 1 TABLET Tablet PO (08:00)
[2024-05-02] MEDS: Glucerna Shake 120 ML LIQUID PO ×3 (08:06→17:58)
[2024-05-02 08:22] VITALS: BP 165/53; PULSE 74
[2024-05-02] MEDS: Ceftriaxone 2 GM in 0.9% Normal Saline (50mL MB+) 50 ML IV (09:53)
[2024-05-02 11:32] LABS: Bedside Glucose 178 mg/dL (74-106)
[2024-05-02] MEDS: Senna/Docusate Sodium 1 Tablet 2 TABLET PO (11:36)
[2024-05-02] MEDS: Acetaminophen 500 MG Tablet 1000 MG PO ×2 (11:36→21:32)
[2024-05-02] MEDS: Ferrous Sulfate 325 MG Tablet PO (12:05)
[2024-05-02 13:54] VITALS: BP 125/57; PULSE 88; RESP 17; TEMP 36.3; O2SAT 91
[2024-05-02 16:58] LABS: Bedside Glucose 241 mg/dL (74-106)
[2024-05-02 21:19] LABS: Bedside Glucose 154 mg/dL (74-106)
[2024-05-02] MEDS: amLODIPine 5 MG Tablet PO (21:24)
[2024-05-02] MEDS: Latanoprost 0.005% 1 Bottle 1 DRP OPHTHALMIC (21:24)
[2024-05-02 21:35] VITALS: BP 119/57; PULSE 61
[2024-05-03] MEDS: oxyCODONE 5 MG Tablet PO (00:45)
[2024-05-03] MEDS: 0.9 % NaCl (Sterile) Posiflush 10 mL IV (03:17)
[2024-05-03] MEDS: Vancomycin IV 1,000 MG/200 ML BAG 200 MG IV ×2 (03:22→15:50)
[2024-05-03] MEDS: Acetaminophen 500 MG Tablet 1000 MG PO ×3 (05:13→20:22)
[2024-05-03 06:34] LABS: Bedside Glucose 168 mg/dL (74-106)
[2024-05-03] MEDS: Glucerna Shake 120 ML LIQUID PO ×3 (08:25→17:29)
[2024-05-03] MEDS: Insulin Lispro 100 UNIT/ML INSULN.PEN 25 UNIT SC ×3 (08:25→17:28)
[2024-05-03] MEDS: Pantoprazole Sodium 20 MG Tablet PO (08:26)
[2024-05-03] MEDS: Aspirin E.C. 81 MG Tablet PO ×2 (08:26→17:29)
[2024-05-03] MEDS: Lisinopril 40 MG Tablet PO (08:26)
[2024-05-03] MEDS: Cyanocobalamin 500 MCG Tablet 1000 MCG PO (08:26)
[2024-05-03] MEDS: Cholecalciferol (VIT D3) 25 MCG TABLET (1,000 UNITS) 50 MCG PO (08:26)
[2024-05-03] MEDS: Folic Acid 1 MG Tablet PO (08:26)
[2024-05-03] MEDS: Calcium Carb/Vitamin D 1 TABLET Tablet PO (08:26)
[2024-05-03 08:28] VITALS: BP 133/76; PULSE 96; RESP 16; TEMP 36.5; O2SAT 96
[2024-05-03] MEDS: 0.9% Normal Saline (250mL Bag) 250 ML 15 ML IV (09:31)
[2024-05-03] MEDS: Ceftriaxone 2 GM in 0.9% Normal Saline (50mL MB+) 50 ML IV (09:31)
[2024-05-03] MEDS: 0.9% Saline Lock 10 ML Syringe IV ×2 (09:32→15:50)
--- NOTE | 2024-05-03 11:37 | NURSING ---
Cyber Legal Advisor Note; Activity Asset: Azalea Ardon is independent in her choice of daily activities. She has her book from home, will watch tv and visit w/ daily. She welcomes visits from the instructional leader and therapy dog when available. Staff will remind her of weekly activities and respect her right to say no.
[2024-05-03] MEDS: Ferrous Sulfate 325 MG Tablet PO (12:11)
[2024-05-03 12:33] LABS: Bedside Glucose 137 mg/dL (74-106)
--- NOTE | 2024-05-03 13:07 | NS ---
MST score = 2
--- NOTE | 2024-05-03 15:54 | PCM.CONS.GEN ---
Assessment & Plan Assessment/Plan (1) Infection of prosthetic left knee joint: PLAN: Now s/p 04/27/24 I&D and spacer placement by Dr. Casillas at [place]. Reviewed [facility] records, surg cx remain neg. On 6 week course po vanc/ceftriaxone via picc, stop date planned for 06/08/24. Will follow, thank you HPI Consult Data Date of Consult: 05/03/24 HPI Narrative Reason for Consultation: PJI HPI Narrative: ARSALAN SPENCE, is a 78 F who presented from [facility] s/p 04/27/24 spacer placement in L knee with explant of prothesis. Surg cx neg so far. Discharged to TCU with picc and 6 weeks iv vanc/ceftriaxone. Feeling ok, no issues with picc or wound vac. No fever, no n/v/d. Knee slowly improving. Full ROS performed and neg except as noted above. [facility], [facility] Medical History Epistaxis Postoperative anemia Health care maintenance Abnormal urinalysis Flu vaccine need Vaginal irritation Furunculosis Preoperative evaluation to rule out surgical contraindication Renal stone Wears hearing aid Wears glasses Insulin dependent diabetes mellitus Bladder disease Back pain Dietary restriction Difficulty swallowing History of diverticulitis Gastric reflux Non-smoker History of pain when walking History of edema History of echocardiogram Hypertension History of irregular heartbeat Osteoarthritis Chronic back pain Balance disorder Lumbar radiculopathy Neuropathy Obesity Chronic UTI (urinary tract infection) Glaucoma Essential (primary) hypertension Home Medications ?Medication ?Instructions ?Recorded ?Last Taken ?Type cholecalciferol (vitamin D3) 50 2,000 unit PO DAILY supplement 07/20/19 04/30/24 08:25 History mcg (2,000 unit) capsule lactobacillus combination no.8 3 3,000 mmu cells PO BID probiotic 07/20/19 Unknown History billion cell capsule (Adult Probiotic) omeprazole magnesium 20 mg 20 mg PO DAILY PRN Heartburn 07/20/19 04/30/24 08:25 History tablet,delayed release (Prilosec OTC) cyanocobalamin (vitamin B-12) 1,000 mcg PO DAILY supplement 06/14/20 04/30/24 08:25 History 1,000 mcg capsule omega-3 fatty acids-fish oil 340 1 ea PO DAILY SUPPLEMENT 08/30/20 Unknown History mg-1,000 mg capsule blood sugar diagnostic (FreeStyle #100 ea 07/16/21 Unknown Rx Precision Esvin Strips) latanoprost 0.005 % eye drops 1 drp ophthalmic (eye) QHS EYES 12/24/21 Unknown History d-mannose 500 mg capsule 2,100 mg PO BID 03/29/22 Unknown History estradiol 0.01% (0.1 mg/gram) 1 appful vaginal DAILY 04/10/22 Unknown History vaginal cream (Estrace) flash glucose sensor (FreeStyle #1 ea 01/23/23 Unknown Rx Shani 2 Sensor kit) trimethoprim 100 mg tablet mg PO 05/29/23 Unknown History Handicap Placard #1 ea 12/24/23 Unknown Rx acetaminophen 325 mg tablet 500 mg PO DAILY PAIN 01/29/24 Unknown History (Tylenol) insulin lispro protamine-lispro 25 unit subcut TID Diabetes 01/29/24 04/30/24 11:25 History 100 unit/mL (50-50) subcutaneous pen (Humalog Mix 50-50 KwikPen) folic acid 1 mg tablet 1 mg PO DAILY supplement #90 tabs 02/11/24 04/30/24 08:25 Rx lisinopril 40 mg tablet 40 mg PO DAILY bp #90 tabs 03/12/24 04/30/24 08:25 Rx ferrous sulfate 325 mg (65 mg 325 mg PO DAILY supplement #90 tabs 04/16/24 04/30/24 11:25 Rx iron) tablet acetaminophen 500 mg tablet 1,000 mg PO BID PRN pain (scale 04/30/24 04/30/24 11:25 History score 1-3) amlodipine 5 mg tablet 5 mg PO QHS heart 04/30/24 04/29/24 09:50 History aspirin 81 mg tablet,delayed 81 mg PO BID DVT prophylaxis 04/30/24 04/30/24 08:25 History release calcium-vitamin D 1200 slow release 1 tab PO DAILY Supplement 04/30/24 04/30/24 08:25 History ceftriaxone 2 gram intravenous 2 g IV DAILY Infection 04/30/24 04/30/24 08:20 History solution oxycodone 5 mg tablet 5 - 10 mg PO Q4H PRN pain (scale 04/30/24 04/30/24 08:25 History score 4-6) sennosides 8.6 mg-docusate sodium 2 tab-cap PO BID PRN constipation 04/30/24 04/30/24 08:25 History 50 mg tablet (Senna with Docusate Sodium) vancomycin 2 gram intravenous 2 g IV Q24H Infection 04/30/24 04/29/24 12:05 History solution Allergy/AdvReac Type Severity Reaction Status Date / Time ciprofloxacin Allergy Severe impairment Verified 01/29/24 14:46 of motor skills hydrochlorothiazide Allergy Mild other Verified 04/30/24 14:11 gatifloxacin (From Tequin) Allergy Unknown Other Verified 04/30/24 14:11 lidocaine (From Xylocaine) Allergy Unknown Other Verified 04/30/24 14:11 Sulfa (Sulfonamide Allergy Unknown unknown Verified 01/29/24 14:46 Antibiotics) metformin AdvReac Intermediate loose Verified 01/29/24 14:46 stool, bladder infections sitagliptin (From Janumet) AdvReac Intermediate loose stool Verified 01/29/24 14:46 batroxobin AdvReac Unknown unknown Verified 01/29/24 14:46 exenatide (From Byetta) AdvReac Unknown unknown Verified 01/29/24 14:46 nizatidine (From Axid) AdvReac Unknown unknown Verified 01/29/24 14:46 sertraline (From Zoloft) AdvReac Unknown unknown Verified 01/29/24 14:46 simvastatin (From Zocor) AdvReac Unknown unknown Verified 01/29/24 14:46 trandolapril (From Mavik) AdvReac Unknown unknown Verified 01/29/24 14:46 betaxolol AdvReac Other Verified 01/29/24 14:46 doxazosin AdvReac Other Verified 01/29/24 14:46 olmesartan (From Benicar) AdvReac Diarrhea Verified 01/29/24 14:46 Family History Mother CVA (cerebral vascular accident) Aunt Breast cancer Surgical History S/P total hip arthroplasty S/P hip hemiarthroplasty History of total left hip replacement Hx of arthroscopic knee surgery Hx of eye surgery Hx of bilateral cataract extraction Hx of total knee arthroplasty Hx of knee surgery Hx of total knee arthroplasty H/O foot surgery H/O: hysterectomy History of cataract surgery H/O tubal ligation History of cholecystectomy History of tonsillectomy Social History (Updated 04/30/24 @ 14:[address] Ra Mccracken MD) household members: spouse Smoking Status: Never smoker alcohol intake: current alcohol intake frequency: a few times a week substance use type: does not use diet: diabetic well-balanced diet: daily or most days what type of physical activity do you participate in: walking frequency: 1-2 times per week Physical Exam Const alert, oriented x3 and no apparent distress General Appearance: cooperative HEENT normocephalic and head/scalp atraumatic Eyes PERRL and EOMs intact bilaterally Neck supple and No nodes Resp normal air movement and clear to auscultation bilaterally Cardio regular rate and regular rhythm GI soft to palpation, non-tender and non-distended Extremity General Extremity: edema Skin Skin Narrative: No rash. L knee wound vac in place Neuro CN's II-XII intact bilaterally Lab / Micro Data Attestation: I reviewed the patient's lab results. 05/01/24 07:15 05/01/24 08:10 Labs: Laboratory Results - last 24 hr 05/02/24 16:39: POC Glucose 241 H 05/02/24 21:01: POC Glucose 154 H 05/03/24 06:12: POC Glucose 168 H 05/03/24 12:08: POC Glucose 137 H
[2024-05-03 16:48] LABS: Bedside Glucose 98 mg/dL (74-106)
[2024-05-03] MEDS: Latanoprost 0.005% 1 Bottle 1 DRP OPHTHALMIC (20:22)
[2024-05-03] MEDS: amLODIPine 5 MG Tablet PO (20:22)
[2024-05-03 20:53] VITALS: PULSE 70; RESP 16; O2SAT 99
[2024-05-03 21:59] LABS: Bedside Glucose 99 mg/dL (74-106)
[2024-05-04] MEDS: Vancomycin Trough/Random Due 1 LAB MC (01:39)
[2024-05-04] MEDS: Acetaminophen 500 MG Tablet 1000 MG PO ×4 (03:26→21:48)
[2024-05-04] MEDS: Vancomycin IV 1,000 MG/200 ML BAG 200 MG IV ×2 (04:59→16:09)
[2024-05-04] MEDS: 0.9% Saline Lock 10 ML Syringe IV ×2 (04:59→06:28)
[2024-05-04] MEDS: oxyCODONE 5 MG Tablet PO ×3 (05:05→21:43)
--- NOTE | 2024-05-04 05:10 | PCM.RX.CS ---
Consult Antibiotic Management Pharmacy has been consulted to manage selected antibiotic: Vancomycin Type of Intervention Type of Consult: Follow-up Labs Labs: Sodium 137 mmol/L (136-145) 05/01/24 08:10 Potassium 4.1 mmol/L (3.5-5.1) 05/01/24 08:10 Chloride 102 mmol/L (98-107) 05/01/24 08:10 Carbon Dioxide 29.0 mmol/L (21.0-32.0) 05/01/24 08:10 Anion Gap 6 (5-15) 05/01/24 08:10 BUN 20 mg/dL (7-18) H 05/01/24 08:10 Creatinine 0.95 mg/dL (0.55-1.02) 05/01/24 08:10 Est GFR (MDRD) Af Amer 73 mL/min (>60) 05/01/24 08:10 Est GFR (MDRD) Non-Af 60 mL/min (>60) 05/01/24 08:10 BUN/Creatinine Ratio 21.0 RATIO (10-20) H 05/01/24 08:10 Glucose 206 mg/dL (74-106) H 05/01/24 08:10 Vancomycin Trough 19.0 ug/mL (5.0-15.0) H 05/04/24 03:23 Random Vancomycin 10.5 ug/mL (0.0-15.0) 04/30/24 15:27 Goal Trough Goal Trough: 15-20 mcg/mL Pharmacy Plan for Drug Dosing Pharmacy Plan for Drug Dosing: Pharmacy Service will continue to monitor and adjust dosing as required. TROUGH 19.0 @ 11.5 HOURS. NO CHANGES, FOLLOW UP TROUGH IN 2 DAYS Follow-Up Labs Follow-Up Labs: Trough: Vancomycin Date/Time Labs Ordered Labs to be done on [date and time ordered]: 05/06 @ 0332
[2024-05-04 06:47] LABS: Bedside Glucose 195 mg/dL (74-106)
--- NOTE | 2024-05-04 08:07 | PCM.CONS.GEN ---
Assessment & Plan Assessment/Plan (1) Urinary retention: (2) Type 2 diabetes mellitus with hyperglycemia: (3) Chronic UTI (urinary tract infection): (4) Atrophic vaginitis: PLAN: Plan Continue aggressive management of constipation Continue Morrell catheter at least a few more days until bowel movements are better We discussed that she may not adequately void on her own until she is ambulating better and they have given her an estimation of 6 weeks for that Continue infection prevention with d-mannose, vaginal estrogen cream and probiotics HPI Consult Data Date of Consult: 05/04/24 HPI Narrative Reason for Consultation: Urinary retention HPI Narrative: ARSALAN SPENCE, is a 78 F who presents following explant of an infected artificial knee. Surgical intervention was 1 week ago. She is minimally mobile at this time. She is struggling with constipation and had an extra large bowel movement yesterday. The catheter has been in since the time of the surgery and it is uncomfortable to sit on it. She has a longstanding history of urinary tract infections. We discussed the importance of bowel movement and that the success with removal of the catheter will be somewhat dependent on her having normal bowel function. [facility] Medical History Epistaxis Postoperative anemia Health care maintenance Abnormal urinalysis Flu vaccine need Vaginal irritation Furunculosis Preoperative evaluation to rule out surgical contraindication Renal stone Wears hearing aid Wears glasses Insulin dependent diabetes mellitus Bladder disease Back pain Dietary restriction Difficulty swallowing History of diverticulitis Gastric reflux Non-smoker History of pain when walking History of edema History of echocardiogram Hypertension History of irregular heartbeat Osteoarthritis Chronic back pain Balance disorder Lumbar radiculopathy Neuropathy Obesity Chronic UTI (urinary tract infection) Glaucoma Essential (primary) hypertension Home Medications ?Medication ?Instructions ?Recorded ?Last Taken ?Type cholecalciferol (vitamin D3) 50 2,000 unit PO DAILY supplement 07/20/19 04/30/24 08:25 History mcg (2,000 unit) capsule lactobacillus combination no.8 3 3,000 mmu cells PO BID probiotic 07/20/19 Unknown History billion cell capsule (Adult Probiotic) omeprazole magnesium 20 mg 20 mg PO DAILY PRN Heartburn 07/20/19 04/30/24 08:25 History tablet,delayed release (Prilosec OTC) cyanocobalamin (vitamin B-12) 1,000 mcg PO DAILY supplement 06/14/20 04/30/24 08:25 History 1,000 mcg capsule omega-3 fatty acids-fish oil 340 1 ea PO DAILY SUPPLEMENT 08/30/20 Unknown History mg-1,000 mg capsule blood sugar diagnostic (FreeStyle #100 ea 07/16/21 Unknown Rx Precision Esvin Strips) latanoprost 0.005 % eye drops 1 drp ophthalmic (eye) QHS EYES 12/24/21 Unknown History d-mannose 500 mg capsule 2,100 mg PO BID 03/29/22 Unknown History estradiol 0.01% (0.1 mg/gram) 1 appful vaginal DAILY 04/10/22 Unknown History vaginal cream (Estrace) flash glucose sensor (FreeStyle #1 ea 01/23/23 Unknown Rx Shani 2 Sensor kit) trimethoprim 100 mg tablet mg PO 05/29/23 Unknown History Handicap Placard #1 ea 12/24/23 Unknown Rx acetaminophen 325 mg tablet 500 mg PO DAILY PAIN 01/29/24 Unknown History (Tylenol) insulin lispro protamine-lispro 25 unit subcut TID Diabetes 01/29/24 04/30/24 11:25 History 100 unit/mL (50-50) subcutaneous pen (Humalog Mix 50-50 KwikPen) folic acid 1 mg tablet 1 mg PO DAILY supplement #90 tabs 02/11/24 04/30/24 08:25 Rx lisinopril 40 mg tablet 40 mg PO DAILY bp #90 tabs 03/12/24 04/30/24 08:25 Rx ferrous sulfate 325 mg (65 mg 325 mg PO DAILY supplement #90 tabs 04/16/24 04/30/24 11:25 Rx iron) tablet acetaminophen 500 mg tablet 1,000 mg PO BID PRN pain (scale 04/30/24 04/30/24 11:25 History score 1-3) amlodipine 5 mg tablet 5 mg PO QHS heart 04/30/24 04/29/24 09:50 History aspirin 81 mg tablet,delayed 81 mg PO BID DVT prophylaxis 04/30/24 04/30/24 08:25 History release calcium-vitamin D 1200 slow release 1 tab PO DAILY Supplement 04/30/24 04/30/24 08:25 History ceftriaxone 2 gram intravenous 2 g IV DAILY Infection 04/30/24 04/30/24 08:20 History solution oxycodone 5 mg tablet 5 - 10 mg PO Q4H PRN pain (scale 04/30/24 04/30/24 08:25 History score 4-6) sennosides 8.6 mg-docusate sodium 2 tab-cap PO BID PRN constipation 04/30/24 04/30/24 08:25 History 50 mg tablet (Senna with Docusate Sodium) vancomycin 2 gram intravenous 2 g IV Q24H Infection 04/30/24 04/29/24 12:05 History solution Allergy/AdvReac Type Severity Reaction Status Date / Time ciprofloxacin Allergy Severe impairment Verified 01/29/24 14:46 of motor skills hydrochlorothiazide Allergy Mild other Verified 04/30/24 14:11 gatifloxacin (From Tequin) Allergy Unknown Other Verified 04/30/24 14:11 lidocaine (From Xylocaine) Allergy Unknown Other Verified 04/30/24 14:11 Sulfa (Sulfonamide Allergy Unknown unknown Verified 01/29/24 14:46 Antibiotics) metformin AdvReac Intermediate loose Verified 01/29/24 14:46 stool, bladder infections sitagliptin (From Janumet) AdvReac Intermediate loose stool Verified 01/29/24 14:46 batroxobin AdvReac Unknown unknown Verified 01/29/24 14:46 exenatide (From Byetta) AdvReac Unknown unknown Verified 01/29/24 14:46 nizatidine (From Axid) AdvReac Unknown unknown Verified 01/29/24 14:46 sertraline (From Zoloft) AdvReac Unknown unknown Verified 01/29/24 14:46 simvastatin (From Zocor) AdvReac Unknown unknown Verified 01/29/24 14:46 trandolapril (From Mavik) AdvReac Unknown unknown Verified 01/29/24 14:46 betaxolol AdvReac Other Verified 01/29/24 14:46 doxazosin AdvReac Other Verified 01/29/24 14:46 olmesartan (From Benicar) AdvReac Diarrhea Verified 01/29/24 14:46 Family History Mother CVA (cerebral vascular accident) Aunt Breast cancer Surgical History S/P total hip arthroplasty S/P hip hemiarthroplasty History of total left hip replacement Hx of arthroscopic knee surgery Hx of eye surgery Hx of bilateral cataract extraction Hx of total knee arthroplasty Hx of knee surgery Hx of total knee arthroplasty H/O foot surgery H/O: hysterectomy History of cataract surgery H/O tubal ligation History of cholecystectomy History of tonsillectomy Social History household members: spouse Smoking Status: Never smoker alcohol intake: current alcohol intake frequency: a few times a week substance use type: does not use diet: diabetic well-balanced diet: daily or most days what type of physical activity do you participate in: walking frequency: 1-2 times per week ROS Constitutional Constitutional: Reports systems reviewed and no addt'l complaints, except as documented Eyes Eyes: Reports systems reviewed and no addt'l complaints, except as documented ENT HEENT: Reports systems reviewed and no addt'l complaints, except as documented Cardiovascular Cardiovascular: Reports systems reviewed and no addt'l complaints, except as documented Respiratory/Chest Respiratory/Chest: Reports systems reviewed and no addt'l complaints, except as documented Gastrointestinal Gastrointestinal: Reports constipation Genitourinary Genitourinary: Reports difficulty urinating Musculoskeletal Musculoskeletal: Reports difficulty walking and limited range of motion Integumentary Integumentary: Reports systems reviewed and no addt'l complaints, except as documented Neurologic Neurologic: Reports systems reviewed and no addt'l complaints, except as documented Psychiatric Psychiatric: Reports systems reviewed and no addt'l complaints, except as documented Endocrine Endocrinology: Reports systems reviewed and no addt'l complaints, except as documented Hematologic/Lymphatic Hematologic/Lymphatic: Reports systems reviewed and no addt'l complaints, except as documented Allergic/Immunologic Allergic/Immunologic: Reports systems reviewed and no addt'l complaints, except as documented Physical Exam Narrative She is sitting up in the bedside chair finishing breakfast. She is alert and oriented x 3 in no apparent distress. She is able to have good conversation. Morrell catheter is draining clear yellow urine. Const alert, oriented x3 and no apparent distress HEENT normocephalic, head/scalp atraumatic, hearing grossly normal bilaterally, external ears normal, external nose normal and moist oral mucous membranes Eyes General Eye: normal appearance of both eyes Neck General: normal visual inspection and trachea midline Chest inspection of chest normal Resp normal respiratory effort, normal air movement and no retractions Cardio regular rate Bladder / Kidney Exam: catheter in place Skin no jaundice, no petechiae and no mottling Neuro oriented x3 and CN's II-XII intact bilaterally Psych mental status grossly normal and thought process normal Lab / Micro Data 05/01/24 07:15 05/01/24 08:10 Labs: Laboratory Results - last 24 hr 05/03/24 12:08: POC Glucose 137 H 05/03/24 16:30: POC Glucose 98 05/03/24 21:37: POC Glucose 99 05/04/24 03:23: Vancomycin Trough 19.0 H 05/04/24 06:26: POC Glucose 195 H
[2024-05-04] MEDS: Folic Acid 1 MG Tablet PO (08:26)
[2024-05-04] MEDS: Cholecalciferol (VIT D3) 25 MCG TABLET (1,000 UNITS) 50 MCG PO (08:26)
[2024-05-04] MEDS: Insulin Lispro 100 UNIT/ML INSULN.PEN 25 UNIT SC ×2 (08:26→11:59)
[2024-05-04] MEDS: Calcium Carb/Vitamin D 1 TABLET Tablet PO (08:26)
[2024-05-04] MEDS: Pantoprazole Sodium 20 MG Tablet PO (08:27)
[2024-05-04] MEDS: Aspirin E.C. 81 MG Tablet PO ×2 (08:27→17:39)
[2024-05-04] MEDS: Cyanocobalamin 500 MCG Tablet 1000 MCG PO (08:27)
[2024-05-04] MEDS: Lisinopril 40 MG Tablet PO (08:27)
[2024-05-04] MEDS: Glucerna Shake 120 ML LIQUID PO ×3 (08:30→17:37)
[2024-05-04 08:33] VITALS: BP 153/75; PULSE 96
[2024-05-04] MEDS: 0.9 % NaCl (Sterile) Posiflush 10 mL IV ×3 (10:25→21:55)
[2024-05-04] MEDS: Ceftriaxone 2 GM in 0.9% Normal Saline (50mL MB+) 50 ML IV (10:26)
[2024-05-04 11:02] VITALS: BMI 32.2
[2024-05-04 11:27] LABS: Bedside Glucose 162 mg/dL (74-106)
[2024-05-04] MEDS: Ferrous Sulfate 325 MG Tablet PO (11:59)
--- NOTE | 2024-05-04 13:40 | PCM.PN.DRR ---
Documented by User: Kirk Raya 05/04/24 14:17 TCU RX Drug Regimen Review Subjective/Objective Subjective/Objective: Subjective: TCU admission note. 78 year old female with below past medical history hospitalized for left prosthetic knee injection, underwent left total knee explant, antibiotic spacer placement 04/27/[address] Casillas, postoperative course complicated by urinary retention requiring hammer catheter, admitted to TCU with debility, here for rehabilitation, strengthening, intravenous antibiotics, prior to discharge home with . Objective: Allergies ciprofloxacin Allergy (Severe, Verified 01/29/24 14:46) impairment of motor skills hydrochlorothiazide Allergy (Mild, Verified 04/30/24 14:11) other bloating gatifloxacin (From Tequin) Allergy (Unknown, Verified 04/30/24 14:11) Other lidocaine (From Xylocaine) Allergy (Unknown, Verified 04/30/24 14:11) Other Sulfa (Sulfonamide Antibiotics) Allergy (Unknown, Verified 01/29/24 14:46) unknown burning metformin Adverse Reaction (Intermediate, Verified 01/29/24 14:46) loose stool, bladder infections sitagliptin (From Janumet) Adverse Reaction (Intermediate, Verified 01/29/24 14:46) loose stool batroxobin Adverse Reaction (Unknown, Verified 01/29/24 14:46) unknown exenatide (From Byetta) Adverse Reaction (Unknown, Verified 01/29/24 14:46) unknown nizatidine (From Axid) Adverse Reaction (Unknown, Verified 01/29/24 14:46) unknown sertraline (From Zoloft) Adverse Reaction (Unknown, Verified 01/29/24 14:46) unknown simvastatin (From Zocor) Adverse Reaction (Unknown, Verified 01/29/24 14:46) unknown trandolapril (From Mavik) Adverse Reaction (Unknown, Verified 01/29/24 14:46) unknown betaxolol Adverse Reaction (Verified 01/29/24 14:46) Other doxazosin Adverse Reaction (Verified 01/29/24 14:46) Other olmesartan (From Benicar) Adverse Reaction (Verified 01/29/24 14:46) Diarrhea Current Medications Generic Name Dose Route Start Last Admin Trade Name Freq PRN Reason Stop Dose Admin Acetaminophen 1,000 mg 04/30/24 14:56 05/04/24 10:16 Acetaminophen 500 Mg Tablet PO 1,000 mg Q6H PRN Administration Pain Score 1-10 Amlodipine Besylate 5 mg 04/30/24 22:00 05/03/24 20:22 Amlodipine 5 Mg Tablet PO 5 mg QHS RAEANN Administration Protocol Aspirin 81 mg 04/30/24 17:00 05/04/24 08:27 Aspirin E.C. 81 Mg Tablet PO 05/30/24 17:01 81 mg BIDCM RAEANN Administration Calcium/Vitamin D 1 tablet 05/01/24 08:00 05/04/24 08:26 Calcium Carb/Vitamin D 1 Tablet Tablet PO 1 tablet DAILYCM RAEANN Administration Cholecalciferol 50 mcg 05/01/24 08:00 05/04/24 08:26 Cholecalciferol (Vit D3) 25 Mcg Tablet (1,000 Units) PO 50 mcg DAILYCM RAEANN Administration Cyanocobalamin 1,000 mcg 05/01/24 08:00 05/04/24 08:27 Cyanocobalamin 500 Mcg Table[facility] Ferrous Sulfate 325 mg 05/01/24 12:00 05/04/24 11:59 Ferrous Sulfate 325 Mg Tablet PO 325 mg LUNCH RAEANN Administration Folic Acid 1 mg 05/01/24 08:00 05/04/24 08:26 Folic Acid 1 Mg Tablet PO [facility] Administration Ceftriaxone Sodium 2 gm/ 50 mls @ 100 mls/hr 05/01/24 10:00 05/04/24 11:25 Sodium Chloride IV Infused Q24 RAEANN Infusion Vancomycin IV-PHARMACY TO DOSE 500 mls @ 250 mls/hr 04/30/24 14:49 1 each/ Sodium Chloride IV X1 PRN Rx to Dose Protocol Vancomycin HCl 1,000 mg in 200 mls @ 200 mls/hr 04/30/24 16:00 05/04/24 06:33 Vancomycin IV Infused Q12H RAEANN Infusion Sodium Chloride 250 mls @ 15 mls/hr 04/30/24 19:27 05/02/24 06:00 IV Infused .[id number] PRN Infusion Additional IVPB Infusion Sodium Chloride 250 mls @ 15 mls/hr 04/30/24 19:27 05/04/24 05:52 IV Infused .[id number] PRN Infusion Saline Flush Insulin Human Lispro 25 unit 04/30/24 16:45 05/04/24 11:59 Insulin Lispro 100 Unit/Ml Insuln.Pen SC 25 unit TIDAC RAEANN Administration Latanoprost 1 drp 04/30/24 22:00 05/03/24 20:22 Latanoprost 0.005% 1 Bottle OPHTHALMIC 1 drp QHS RAEANN Administration Lisinopril 40 mg 05/01/24 10:00 05/04/24 08:27 Lisinopril 40 Mg Tablet PO 40 mg DAILY RAEANN Administration Protocol Nutritional Formula (Lactose Free) 120 ml 05/01/24 12:45 05/04/24 12:02 Glucerna Shake 120 Ml Liquid PO 120 ml TIDCM RAEANN Administration Oxycodone HCl 5 - 10 mg 04/30/24 13:57 05/04/24 05:05 Oxycodone 5 Mg Tablet PO 5 mg Q4H PRN Administration pain (scale score 4-10) Pantoprazole Sodium 20 mg 05/01/24 10:00 05/04/24 08:27 Pantoprazole Sodium 20 Mg Tablet PO 20 mg DAILY RAEANN Administration Senna/Docusate Sodium 2 tablet 04/30/24 13:51 05/02/24 11:36 Senna/Docusate Sodium 1 Tablet PO 2 tablet BID PRN Administration constipation Sodium Chloride 10 - 40 ml 04/30/24 14:03 05/04/24 10:25 0.9 % Nacl (Sterile) Posiflush 10 Ml IV 20 ml UD PRN Administration Port access or dressing change Sodium Chloride 10 - 40 ml 04/30/24 14:03 05/04/24 06:28 0.9% Saline Lock 10 Ml Syringe IV 10 ml UD PRN Administration Closed End PICC Flush Tuberculin PPD 0.1 ml 05/08/24 10:00 Tuberculin,Purif.Prot.Deriv. 50 Tu/Ml Vial ID 05/08/24 10:01 X1 ONE Vancomycin Protocol 1 lab 05/06/24 01:30 Vancomycin Trough/Random Due MC 05/06/24 05:30 DAILY [facility] Problem List Type 2 diabetes mellitus with hyperglycemia (Acute) Essential (primary) hypertension (Acute) Urinary retention (Acute) Infection of prosthetic left knee joint (Acute) Debility (Acute) Recurrent UTI (Chronic) Glaucoma (Chronic) Atrophic vaginitis (Chronic) GERD (gastroesophageal reflux disease) (Chronic) Chronic UTI (urinary tract infection) (Chronic) Vital Signs Temp Pulse Resp BP Pulse Ox O2 Del Method 97.7 F L 96 16 153/75 H 99 Room Air 05/03/24 08:28 05/04/24 08:33 05/03/24 20:53 05/04/24 08:33 05/03/24 20:53 05/03/24 20:53 Oxygen Delivery Method Room Air Weight: 90.582 kg Body Mass Index (BMI) 32.2 Sodium 137 mmol/L (136-145) 05/01/24 08:10 Potassium 4.1 mmol/L (3.5-5.1) 05/01/24 08:10 Chloride 102 mmol/L (98-107) 05/01/24 08:10 Carbon Dioxide 29.0 mmol/L (21.0-32.0) 05/01/24 08:10 Anion Gap 6 (5-15) 05/01/24 08:10 BUN 20 mg/dL (7-18) H 05/01/24 08:10 Creatinine 0.95 mg/dL (0.55-1.02) 05/01/24 08:10 Est GFR (MDRD) Af Amer 73 mL/min (>60) 05/01/24 08:10 Est GFR (MDRD) Non-Af 60 mL/min (>60) 05/01/24 08:10 BUN/Creatinine Ratio 21.0 RATIO (10-20) H 05/01/24 08:10 Glucose 206 mg/dL (74-106) H 05/01/24 08:10 Vancomycin Trough 19.0 ug/mL (5.0-15.0) H 05/04/24 03:23 Random Vancomycin 10.5 ug/mL (0.0-15.0) 04/30/24 15:27 Assessment/Plan: 1. Pain: acetaminophen 1000 mg PO Q6H PRN pain, oxycodone 5-10 mg PO Q4H PRN pain (4-10). The patient has received 7 doses of PRN acetaminophen and 10 doses of oxycodone so far this admission. Please continue to monitor pain levels, PRN medication usage, LFTs (AST/ALT = 37/28 U/L on 03/31/23), for constipation, respiratory depression, dizziness, and syncope/ataxia/falls. Please consider scheduling the acetaminophen 1000 mg PO Q8H to try to stay ahead of the patient's pain as she has been using a significant amount of the acetaminophen already. 2. Bowel: senna/docusate 2 tablets PO BID PRN constipation. The patient has used 1 dose of senna/docusate PRN so far this admission and the patient's last bowel movement was 05/03/24. Please continue to monitor for PRN medication usage, for bowel movements, for constipation and diarrhea. 3. Left prosthetic knee infection: ceftriaxone 2 grams IV daily, Vancomycin 1000 mg Q12H. Please continue to monitor for s/s of infection such as redness/swelling/pain around joint, white blood cell count (WBC = 10.6 K/mm3 on 05/01/24), for fevers (Temp =97.7 on 05/03/24), for diarrhea, for rash with vancomycin administration, vancomycin troughs (last vancomycin trough = 19.0 on 05/04/24), and renal function (serum creatinine = 0.95 mg/dL with creatinine clearance = 56 mL/min on 05/01/24). 4. DVT prophylaxis: aspirin 81 mg PO BID through 05/30/24. Please continue to monitor for s/s of a DVT such as pain/erythema/swelling in an extremity, for GI distress with aspirin administration (to avoid please administer with food), for bleeding/excessive bruising, and hemoglobin (Hgb = 8.1 g/dL on 05/01/24) and platelet levels (Plt = 206 K/mm3 on 05/01/24). 5. Hypertension: amlodipine 5 mg PO QHS, lisinopril 40 mg PO daily. Please continue to monitor blood pressures (recent range = 612931/51-78 mmHg), for lower extremity edema, potassium levels (K = 4.1 mmol/L on 05/01/24), and renal function (serum creatinine = 0.95 mg/dL with creatinine clearance = 56 mL/min on 05/01/24). 6. Diabetes Mellitus II: insulin lispro 25 units TIDAC. Please continue to monitor blood glucose levels (recent range = 98-195 mg/dL), hemoglobin A1C levels (Hgb = 6.3% on 01/29/24), and for pain at injection sites. 7. GERD: pantoprazole 20 mg PO daily. Please continue to monitor for s/s of GERD, for diarrhea that could indicate clostridium difficile infection, for s/s of bone resorption issues such as fractures, and magnesium levels (Mg = 1.8 mg/dL on 10/06/20). Please consider ordering a magnesium level to assess status if clinically indicated. 8. Iron deficiency anemia: ferrous sulfate 325 mg PO daily. Please continue to monitor hemoglobin levels (Hgb = 8.1 g/dL on ), and iron studies (no recent iron studies documented). Please consider ordering iron studies to assess for the need for IV iron if clinically indicated. 9. Glaucoma: latanoprost 1 drop in both eyes QHS. Please continue to monitor for s/s of eye disease, and for eye itchiness. 10. Vitamin C/Vitamin D/Vitamin B12 deficiencies: calcium carbonate/vitamin D 1 tablet PO daily, cholecalciferol 50 mcg PO daily, cyanocobalamin 1000 mcg PO daily. Please continue to monitor for s/s of vitamin deficiencies, and calcium levels (Ca = 8.8 mg/dL on05/01/24), vitamin b12 levels (B12 levels = 1066 pg/mL on 12/31/21), vitamin D levels (Vitamin D = 44 ng/mL on 03/31/03). 11. Folic acid deficiency: folic acid 1 mg PO daily. Please continue to monitor for s/s of folic acid deficiency. 12. Nutrition: glucerna 120 mL PO TID with meals. Please continue to monitor overall nutritional status. Assessment/Plan for indications treated with psychotropic medications: NA Medical chart and medication regimen reviewed. The following medication irregularities or issues were identified: 1. Pain: acetaminophen 1000 mg PO Q6H PRN pain, oxycodone 5-10 mg PO Q4H PRN pain (4-10). Please consider scheduling the acetaminophen 1000 mg PO Q8H to try to stay ahead of the patient's pain as she has been using a significant amount of the acetaminophen already. 2. GERD: pantoprazole 20 mg PO daily. Please consider ordering a magnesium level to assess status if clinically indicated. 3. Iron deficiency anemia: ferrous sulfate 325 mg PO daily. Please consider ordering iron studies to assess for the need for IV iron if clinically indicated. Date Date of Note:: 05/04/24 Documented by User: Dr. Ra Mccracken MD 05/04/24 17:21 TCU RX Drug Regimen Review Provider Comments Provider responsibility Provider Comments to Recommendations by Pharmacy: Agree
[2024-05-04 14:22] VITALS: BP 136/53; PULSE 63; RESP 14; TEMP 36.3; O2SAT 97
--- NOTE | 2024-05-04 15:12 | CHAPLAIN ---
Type of Pastoral Visit _x__ Initial Visit ___ Follow-up Visit ___ On-call Visit ___ General Patient Visit ___ Spiritual Assessment ___ Family Conference ___ Bereavement ___ Rapid Response ___ Code Blue ___ Other (describe below) Pastoral Care Referral From _x__ Patient ___ Family ___ Nurse ___ Physician ___ Soft Work Wrapper Layer And Examiner ___ Video Game Tester ___ Other (describe below) Sacrament/Intervention _x__ Active listening ___ Anointing ___ Jain ___ Bereavement ___ Communion ___ Shara exploration ___ _x__ Life review _x__ Prayer ___ Reconciliation ___ Sacrament of Sick ___ Supportive presence ___ Wedding ___ Other (describe below) Pastoral Comments patient has been seen before in previous admissions and gives update on her status; pt has not been having many visitors as family members work and live a little distance away; pt states that she is doing fine and now has a discharge date of Jun 08 after all antibiotic therapies are done; pt speaks of her jewish and 'trying to find a wood scrap handler; pt is not in distress and carries on her part of the conversation; no other needs identified by patient; prayer given by request
--- NOTE | 2024-05-04 16:52 | CASEMGMT ---
Social Work SW met with patient to complete initial assessment. Introduced self and role. Pt known to this worker from previous stay. Verified contacts. Patient confirmed code status as full code. Educated to Medicare benefit and copay coverage. Pt's goal is to return home at [facility]. Pt has IV ATB through 06/08, with EDC 06/09. SW will continue to follow for DC planning. ADRIANA StevensW
[2024-05-04 17:02] LABS: Bedside Glucose 82 mg/dL (74-106)
[2024-05-04 17:02] LABS: Bedside Glucose 52 mg/dL (74-106)
[2024-05-04 20:00] VITALS: PULSE 57; RESP 16; O2SAT 93
--- NOTE | 2024-05-04 20:02 | NURSING ---
Incisional wound vac to left knee removed per order. 15 sutures intact to left knee incision, scant amount of red drainage noted from mid wound incision, ABD applied and taped in place, Left knee immobilizer reapplied. patient tolerated well.
[2024-05-04] MEDS: Latanoprost 0.005% 1 Bottle 1 DRP OPHTHALMIC (21:50)
[2024-05-04] MEDS: amLODIPine 5 MG Tablet PO (21:52)
[2024-05-04 21:59] LABS: Bedside Glucose 167 mg/dL (74-106)
[2024-05-04 22:01] VITALS: BP 140/72; PULSE 93
[2024-05-04 23:07] LABS: Iron 33 ug/dL (50-170); Magnesium 2.1 mg/dL (1.6-2.6)
[2024-05-05] MEDS: 0.9 % NaCl (Sterile) Posiflush 10 mL IV ×3 (03:12→20:34)
[2024-05-05] MEDS: Vancomycin IV 1,000 MG/200 ML BAG 200 MG IV ×2 (03:16→16:06)
[2024-05-05] MEDS: oxyCODONE 5 MG Tablet PO ×5 (04:19→20:43)
[2024-05-05] MEDS: Senna/Docusate Sodium 1 Tablet 2 TABLET PO (05:19)
[2024-05-05] MEDS: Acetaminophen 500 MG Tablet 1000 MG PO ×3 (05:19→20:49)
[2024-05-05 06:29] LABS: Bedside Glucose 165 mg/dL (74-106)
[2024-05-05] MEDS: Cyanocobalamin 500 MCG Tablet 1000 MCG PO (08:11)
[2024-05-05] MEDS: Aspirin E.C. 81 MG Tablet PO ×2 (08:11→18:04)
[2024-05-05] MEDS: Pantoprazole Sodium 20 MG Tablet PO (08:11)
[2024-05-05] MEDS: Calcium Carb/Vitamin D 1 TABLET Tablet PO (08:11)
[2024-05-05] MEDS: Folic Acid 1 MG Tablet PO (08:11)
[2024-05-05] MEDS: Lisinopril 40 MG Tablet PO (08:11)
[2024-05-05] MEDS: Cholecalciferol (VIT D3) 25 MCG TABLET (1,000 UNITS) 50 MCG PO (08:11)
[2024-05-05] MEDS: Glucerna Shake 120 ML LIQUID PO ×3 (08:11→18:04)
[2024-05-05] MEDS: Insulin Lispro 100 UNIT/ML INSULN.PEN 15 UNIT SC ×3 (08:12→18:04)
[2024-05-05 08:16] VITALS: BP 134/64; PULSE 95
--- NOTE | 2024-05-05 09:53 | CASEMGMT ---
Social Work IDT met with patient and for care plan meeting. Discussed patient's progress in PT/OT/SN. Educated to Medicare benefit and copay coverage. SW provided pt/family with written communication on insurance process. Pt has IV ATB through 06/08. cannot administer at home. EDC 06/09. SW answered husbands questions pertaining to insurance coverage and encouraged to verify copay coverage. agreed. SW will continue to follow for DC planning. Marcia Ayoub, PARTS DEPARTMENT MANAGER SELF SEALING FUEL TANK BUILDER
[2024-05-05] MEDS: Ceftriaxone 2 GM in 0.9% Normal Saline (50mL MB+) 50 ML IV (10:48)
[2024-05-05] MEDS: 0.9% Normal Saline (250mL Bag) 250 ML 15 ML IV (10:48)
[2024-05-05 11:29] LABS: Bedside Glucose 175 mg/dL (74-106)
[2024-05-05] MEDS: Ferrous Sulfate 325 MG Tablet PO (11:54)
--- NOTE | 2024-05-05 14:51 | CASEMGMT ---
BIMS () and PHQ9 (10) interviews completed on this date for MDS assessment. SW spoke with pt regarding positive answers to mood screening. Pt indicates that due to need for SNF and medical necessity to be treated during the night pt is not sleeping well and feeling tired. Pt also sites medical issues and SNF placement as reasons that she has little interest in normal activities. SW encouraged verbalization of feelings and provided active listening. Pt does state that she talks to her family and friends often on the phone and this is a helpful way of coping. SW will remain available for additional needs. HEMANTH Castro
[2024-05-05 14:54] VITALS: BP 144/67; PULSE 99; RESP 16; TEMP 36.6; O2SAT 98
[2024-05-05 16:16] VITALS: TEMP 37.2
[2024-05-05 16:30] LABS: Bedside Glucose 136 mg/dL (74-106)
[2024-05-05] MEDS: Latanoprost 0.005% 1 Bottle 1 DRP OPHTHALMIC (20:48)
[2024-05-05] MEDS: amLODIPine 5 MG Tablet PO (20:51)
[2024-05-05 20:54] VITALS: BP 151/57; PULSE 64
[2024-05-06 01:17] LABS: Bedside Glucose 126 mg/dL (74-106)
[2024-05-06] MEDS: Vancomycin Trough/Random Due 1 LAB MC (03:36)
[2024-05-06] MEDS: oxyCODONE 5 MG Tablet PO ×4 (03:39→22:06)
[2024-05-06 04:23] LABS: Vancomycin, Trough Level 20.3 ug/mL (5.0-15.0)
--- NOTE | 2024-05-06 04:29 | PCM.RX.CS ---
Consult Antibiotic Management Pharmacy has been consulted to manage selected antibiotic: Vancomycin Type of Intervention Type of Consult: Follow-up Labs Labs: Sodium 137 mmol/L (136-145) 05/01/24 08:10 Potassium 4.1 mmol/L (3.5-5.1) 05/01/24 08:10 Chloride 102 mmol/L (98-107) 05/01/24 08:10 Carbon Dioxide 29.0 mmol/L (21.0-32.0) 05/01/24 08:10 Anion Gap 6 (5-15) 05/01/24 08:10 BUN 20 mg/dL (7-18) H 05/01/24 08:10 Creatinine 0.95 mg/dL (0.55-1.02) 05/01/24 08:10 Est GFR (MDRD) Af Amer 73 mL/min (>60) 05/01/24 08:10 Est GFR (MDRD) Non-Af 60 mL/min (>60) 05/01/24 08:10 BUN/Creatinine Ratio 21.0 RATIO (10-20) H 05/01/24 08:10 Glucose 206 mg/dL (74-106) H 05/01/24 08:10 Vancomycin Trough 20.3 ug/mL (5.0-15.0) H 05/06/24 03:30 Random Vancomycin 10.5 ug/mL (0.0-15.0) 04/30/24 15:27 Dosing Weight Weight used for dosin.6 kg Estimated Creatinine Clearance Estimated Creatinine Clearance: 56 Goal Trough Goal Trough: 15-20 mcg/mL Pharmacy Plan for Drug Dosing Pharmacy Plan for Drug Dosing: Vancomycin trough level of 20.3, drawn 11.5hrs post-dose, was just slightly above the target range of 15-20. Will continue dosing at 1000mg q12h, and will draw another trough level in two days. Pharmacy Service will continue to monitor and adjust dosing as required. Follow-Up Labs Follow-Up Labs: Trough: Vancomycin Date/Time Labs Ordered Labs to be done on [date and time ordered]: 05/08/24 @0330
[2024-05-06] MEDS: 0.9 % NaCl (Sterile) Posiflush 10 mL IV (04:31)
[2024-05-06] MEDS: Vancomycin IV 1,000 MG/200 ML BAG 200 MG IV ×2 (04:38→15:10)
[2024-05-06] MEDS: Acetaminophen 500 MG Tablet 1000 MG PO ×3 (05:46→22:07)
[2024-05-06 06:45] LABS: Bedside Glucose 180 mg/dL (74-106)
[2024-05-06 07:56] VITALS: BP 143/74; PULSE 98; RESP 16; TEMP 36.2; O2SAT 94
[2024-05-06] MEDS: Glucerna Shake 120 ML LIQUID PO ×3 (07:57→17:55)
[2024-05-06] MEDS: Pantoprazole Sodium 20 MG Tablet PO (08:02)
[2024-05-06] MEDS: Cholecalciferol (VIT D3) 25 MCG TABLET (1,000 UNITS) 50 MCG PO (08:02)
[2024-05-06] MEDS: Folic Acid 1 MG Tablet PO (08:02)
[2024-05-06] MEDS: Cyanocobalamin 500 MCG Tablet 1000 MCG PO (08:02)
[2024-05-06] MEDS: Lisinopril 40 MG Tablet PO (08:02)
[2024-05-06] MEDS: Calcium Carb/Vitamin D 1 TABLET Tablet PO (08:02)
[2024-05-06] MEDS: Aspirin E.C. 81 MG Tablet PO ×2 (08:02→17:55)
[2024-05-06] MEDS: Insulin Lispro 100 UNIT/ML INSULN.PEN 15 UNIT SC ×3 (08:03→17:56)
[2024-05-06] MEDS: 0.9% Saline Lock 10 ML Syringe IV ×2 (09:59→15:10)
[2024-05-06] MEDS: Ceftriaxone 2 GM in 0.9% Normal Saline (50mL MB+) 50 ML IV (09:59)
[2024-05-06] MEDS: Senna/Docusate Sodium 1 Tablet 2 TABLET PO ×2 (09:59→22:07)
[2024-05-06 11:35] LABS: Bedside Glucose 146 mg/dL (74-106)
[2024-05-06] MEDS: Ferrous Sulfate 325 MG Tablet PO (12:11)
[2024-05-06] MEDS: 0.9% Normal Saline (250mL Bag) 250 ML 15 ML IV (15:10)
--- NOTE | 2024-05-06 15:25 | NURSING ---
knee xray being done in bed in room at this time. [facility] care refilled, temp checked.
--- NOTE | 2024-05-06 15:30 | RAD_ITS ---
STUDY: X-RAY - LEFT KNEE REASON FOR EXAM: Female, 78 years old. Pain. TECHNIQUE: 3 view(s) of the knee. COMPARISON: Prior comparison studies are not available for review at this time. FINDINGS: No definite acute fracture or dislocation. Patient has acromioclavicular plasty with a metal femoral prosthesis and a radiolucent tibial prosthesis along with short thin tibial and femoral intramedullary rodolfo. Normal alignment. RAD/Knee 3 Views IMPRESSION: No acute fracture or dislocation. Electronically Signed: Narinder Poon MD at 16:33 EDT ,
--- NOTE | 2024-05-06 15:50 | PCM.PN.GU ---
Subjective Subjective Sitting up in her chair again today. She is continuing to struggle with constipation. She had a very large and very hard bowel movement yesterday. Today she has tried to have a bowel movement with some urgency, has only been able to pass flatus. She has been taking prunes and stool softeners daily. We discussed that her success with removal of the Morrell catheter will be higher if we wait until she is having regular soft bowel movements. She would rather leave the catheter until this is happening. Objective Data Objective Data Vital Signs: Vital Signs Temp Pulse Resp BP Pulse Ox O2 Del Method 97.2 F L 98 16 143/74 H 94 Room Air 05/06/24 07:56 05/06/24 07:56 05/06/24 07:56 05/06/24 07:56 05/06/24 07:56 05/06/24 07:56 Oxygen Delivery Method Room Air Weight: 90.582 kg Body Mass Index (BMI) 32.2 Intake & Output: Intake and Output for Last 24 Hours 05/04/24 05/05/24 05/06/24 23:59 23:59 23:59 Intake Total 1420 / 1420 1195.75 / 1195.75 610 / 610 Output Total 2900 / 2900 2650 / 2650 Balance -1480 / -1480 -1454.25 / -1454.25 610 / 610 Lab / Micro Data 05/01/24 07:15 05/01/24 08:10 Labs: Laboratory Results - last 24 hr 05/05/24 16:08: POC Glucose 136 H 05/05/24 21:06: POC Glucose 126 H 05/06/24 03:30: Vancomycin Trough 20.3 H 05/06/24 06:24: POC Glucose 180 H 05/06/24 11:14: POC Glucose 146 H Micro: Microbiology 05/06/24 05:52 Nasal Secretion SARS-CoV-2 Antigen (Rapid) - Final Physical Exam Const alert, oriented x3 and no apparent distress HEENT normocephalic, head/scalp atraumatic, hearing grossly normal bilaterally, external nose normal and moist oral mucous membranes Eyes General Eye: normal appearance of both eyes Neck General: trachea midline Chest inspection of chest normal Chest: symmetrical chest wall rise Resp normal respiratory effort, normal air movement and no retractions Cardio regular rate Bladder / Kidney Exam: catheter in place urethral (Draining clear yellow) Skin no rashes or lesions noted, no jaundice, no petechiae and no mottling Neuro oriented x3, CN's II-XII intact bilaterally and moves all extremities Psych mental status grossly normal and thought process normal Assessment & Plan Assessment/Plan (1) Urinary retention: (2) Recurrent UTI: (3) Constipation: PLAN: Plan Continue Morrell catheter until constipation is better managed Will then plan for trial of void with postvoid residual We have had recent difficulty in controlling her urinary tract infections, while coming any recommendations per ID
[2024-05-06 16:32] LABS: Bedside Glucose 151 mg/dL (74-106)
[2024-05-06] MEDS: cycloBENZAPRine HCl 10 MG Tablet PO (17:59)
[2024-05-06 22:00] VITALS: BP 171/70; PULSE 66; RESP 16; RESP 18; O2SAT 95
[2024-05-06 22:01] LABS: Bedside Glucose 131 mg/dL (74-106)
[2024-05-06] MEDS: amLODIPine 5 MG Tablet PO (22:07)
[2024-05-06] MEDS: Latanoprost 0.005% 1 Bottle 1 DRP OPHTHALMIC (22:07)
[2024-05-07] MEDS: Vancomycin IV 1,000 MG/200 ML BAG 200 MG IV ×2 (04:19→15:48)
[2024-05-07] MEDS: cycloBENZAPRine HCl 10 MG Tablet PO ×2 (04:40→19:32)
[2024-05-07] MEDS: 0.9% Saline Lock 10 ML Syringe IV ×5 (04:40→15:49)
--- NOTE | 2024-05-07 04:52 | NURSING ---
Patient A&Ox3, states no longer wants HS accuchecks, states I don't do it like that at home, I only check it before meals, patient states only wants HS accucheck as needed. Educated on hypo/hyperglycemia, continues to state will no longer accept HS accuchecks, written communication left for Dr. Mccracken
[2024-05-07 05:00] VITALS: PULSE 68; RESP 16; O2SAT 94
[2024-05-07] MEDS: Acetaminophen 500 MG Tablet 1000 MG PO ×3 (05:52→21:18)
[2024-05-07 06:07] LABS: Absolute Lymphocyte Count 2.28 X10^3/uL (0.83-4.51); Absolute Neutrophil Count 5.8 X10^3/uL (2.0-7.7); Basophil# 0.06 X10^3/uL; Basophil% 0.6 % (0-1); Eosinophil# 0.41 X10^3/uL; Eosinophils% 4.4 % (0-5); Hematocrit 27.2 % (37-47); Hemoglobin 8.3 g/dL (12.0-15.0); Lymphocyte # 2.28 X10^3/ul (0.83-4.51); Lymphocyte % 24.3 % (19-41); Mean Corp Hgb Conc 30.5 g/dL (32-36); Mean Corpuscular Volume 91.9 fL (81-99); Mean Platelet Vol. 9.9 fl (6.2-12.0); Monocyte# 0.75 X10^3/uL; NRBC Flagged by Analyzer 0 % (0-5); Neutrophil # 5.78 X10^3/uL (2.7-7.7); Neutrophil % 61.5 % (47-70); Platelet Count 339 K/mm3 (150-450); RBC Distribution Width CV 14.8 % (11.6-14.6); RBC Distribution Width SD 49.4 fl (35.1-43.9); Red Blood Count 2.96 M/mm3 (4.2-5.4); White Blood Count 9.4 K/mm3 (4.4-11.0)
[2024-05-07 06:16] LABS: Bedside Glucose 174 mg/dL (74-106)
[2024-05-07 06:19] LABS: Anion Gap 7 (5-15); BUN 14 mg/dL (7-18); Calcium,Total 8.8 mg/dL (8.5-10.1); Chloride 104 mmol/L (98-107); Creatinine, Serum 0.88 mg/dL (0.55-1.02); EST Glomerular Filtration Rate 66 mL/min (>60); Est Glom Filt Rate - Afr Amer 80 mL/min (>60); Estimated Creatinine Clearance 59.73 ml/min; Glucose 205 mg/dL (74-106); Potassium 4.4 mmol/L (3.5-5.1); Sodium Level 137 mmol/L (136-145)
[2024-05-07 06:58] LABS: Erythrocyte Sedimentation Rate 36 mm/hr (0-30)
[2024-05-07 07:49] VITALS: BP 114/49; PULSE 58; RESP 16; TEMP 36.3; O2SAT 93
[2024-05-07] MEDS: Insulin Lispro 100 UNIT/ML INSULN.PEN 15 UNIT SC ×3 (07:51→17:34)
[2024-05-07] MEDS: Folic Acid 1 MG Tablet PO (07:52)
[2024-05-07] MEDS: Aspirin E.C. 81 MG Tablet PO ×2 (07:52→17:34)
[2024-05-07] MEDS: Glucerna Shake 120 ML LIQUID PO ×2 (07:52→17:34)
[2024-05-07] MEDS: Calcium Carb/Vitamin D 1 TABLET Tablet PO (07:52)
[2024-05-07] MEDS: Cyanocobalamin 500 MCG Tablet 1000 MCG PO (07:52)
[2024-05-07] MEDS: Cholecalciferol (VIT D3) 25 MCG TABLET (1,000 UNITS) 50 MCG PO (07:53)
[2024-05-07] MEDS: Senna/Docusate Sodium 1 Tablet 2 TABLET PO ×2 (07:53→21:20)
[2024-05-07] MEDS: Pantoprazole Sodium 20 MG Tablet PO (07:53)
[2024-05-07] MEDS: Lisinopril 40 MG Tablet PO (07:53)
[2024-05-07] MEDS: oxyCODONE 5 MG Tablet PO ×3 (09:16→23:42)
[2024-05-07] MEDS: Ceftriaxone 2 GM in 0.9% Normal Saline (50mL MB+) 50 ML IV (10:26)
[2024-05-07 11:24] LABS: Bedside Glucose 110 mg/dL (74-106)
[2024-05-07] MEDS: Ferrous Sulfate 325 MG Tablet PO (11:47)
[2024-05-07] MEDS: Alteplase 2 MG/2 ML Vial IV (13:10)
[2024-05-07] MEDS: 0.9% Normal Saline (250mL Bag) 250 ML 15 ML IV (15:49)
[2024-05-07 16:39] LABS: Bedside Glucose 134 mg/dL (74-106)
[2024-05-07 21:17] VITALS: BP 146/69; PULSE 93
[2024-05-07] MEDS: 0.9 % NaCl (Sterile) Posiflush 10 mL IV (21:18)
[2024-05-07] MEDS: Latanoprost 0.005% 1 Bottle 1 DRP OPHTHALMIC (21:19)
[2024-05-07] MEDS: amLODIPine 5 MG Tablet PO (21:20)
[2024-05-08] MEDS: cycloBENZAPRine HCl 10 MG Tablet PO ×2 (02:14→16:52)
[2024-05-08] MEDS: Vancomycin Trough/Random Due 1 LAB MC (04:09)
--- NOTE | 2024-05-08 04:48 | PCM.RX.CS ---
Consult Antibiotic Management Pharmacy has been consulted to manage selected antibiotic: Vancomycin Type of Intervention Type of Consult: Follow-up Labs Labs: Sodium 137 mmol/L (136-145) 05/07/24 05:25 Potassium 4.4 mmol/L (3.5-5.1) 05/07/24 05:25 Chloride 104 mmol/L (98-107) 05/07/24 05:25 Carbon Dioxide 26.0 mmol/L (21.0-32.0) 05/07/24 05:25 Anion Gap 7 (5-15) 05/07/24 05:25 BUN 14 mg/dL (7-18) 05/07/24 05:25 Creatinine 0.88 mg/dL (0.55-1.02) 05/07/24 05:25 Est GFR (MDRD) Af Amer 80 mL/min (>60) 05/07/24 05:25 Est GFR (MDRD) Non-Af 66 mL/min (>60) 05/07/24 05:25 BUN/Creatinine Ratio 16.0 RATIO (10-20) 05/07/24 05:25 Glucose 205 mg/dL (74-106) H 05/07/24 05:25 Vancomycin Trough 22.0 ug/mL (5.0-15.0) H 05/08/24 03:45 Random Vancomycin 10.5 ug/mL (0.0-15.0) 04/30/24 15:27 Microbiology Microbiology: Microbiology 05/06/24 05:52 Nasal Secretion SARS-CoV-2 Antigen (Rapid) - Final Dosing Weight Weight used for dosin.6 kg Estimated Creatinine Clearance Estimated Creatinine Clearance: 60 Goal Trough Goal Trough: 15-20 mcg/mL Pharmacy Plan for Drug Dosing Pharmacy Plan for Drug Dosing: Vancomycin trough level of 22.0, drawn 12hrs post-dose, was above the target range of 15-20. Will hold current dosing, and draw a random level in twelve hours to determine further orders. Pharmacy Service will continue to monitor and adjust dosing as required. Follow-Up Labs Follow-Up Labs: Trough: Vancomycin (random) Date/Time Labs Ordered Labs to be done on [date and time ordered]: 05/08/24 @1600 random
[2024-05-08] MEDS: oxyCODONE 5 MG Tablet PO ×2 (05:17→22:32)
[2024-05-08] MEDS: Acetaminophen 500 MG Tablet 1000 MG PO ×3 (05:18→22:36)
[2024-05-08] MEDS: Glucerna Shake 120 ML LIQUID PO ×3 (08:13→17:06)
[2024-05-08] MEDS: Insulin Lispro 100 UNIT/ML INSULN.PEN 15 UNIT SC ×3 (08:14→17:07)
[2024-05-08] MEDS: Cyanocobalamin 500 MCG Tablet 1000 MCG PO (08:14)
[2024-05-08] MEDS: Folic Acid 1 MG Tablet PO (08:14)
[2024-05-08] MEDS: Calcium Carb/Vitamin D 1 TABLET Tablet PO (08:14)
[2024-05-08] MEDS: Aspirin E.C. 81 MG Tablet PO ×2 (08:14→17:06)
[2024-05-08] MEDS: Cholecalciferol (VIT D3) 25 MCG TABLET (1,000 UNITS) 50 MCG PO (08:14)
[2024-05-08] MEDS: Pantoprazole Sodium 20 MG Tablet PO (08:14)
[2024-05-08] MEDS: Lisinopril 40 MG Tablet PO (08:15)
[2024-05-08] MEDS: Senna/Docusate Sodium 1 Tablet 2 TABLET PO ×2 (08:15→22:37)
[2024-05-08] MEDS: Ceftriaxone 2 GM in 0.9% Normal Saline (50mL MB+) 50 ML IV (09:59)
[2024-05-08] MEDS: Tuberculin,Purif.prot.deriv. 50 TU/ML Vial 0.1 ML ID (10:00)
[2024-05-08 10:29] VITALS: BP 150/69; PULSE 65; RESP 18; TEMP 36.6; O2SAT 98
[2024-05-08 10:54] LABS: Bedside Glucose 155 mg/dL (74-106)
[2024-05-08 11:45] LABS: Bedside Glucose 161 mg/dL (74-106)
[2024-05-08] MEDS: 0.9% Saline Lock 10 ML Syringe IV (11:48)
[2024-05-08] MEDS: Ferrous Sulfate 325 MG Tablet PO (11:48)
[2024-05-08 16:06] LABS: Vancomycin, Random Level 15.2 ug/mL (0.0-15.0)
--- NOTE | 2024-05-08 16:38 | PCM.RX.CS ---
Consult Antibiotic Management Pharmacy has been consulted to manage selected antibiotic: Vancomycin Type of Intervention Type of Consult: Follow-up Labs Labs: Sodium 137 mmol/L (136-145) 05/07/24 05:25 Potassium 4.4 mmol/L (3.5-5.1) 05/07/24 05:25 Chloride 104 mmol/L (98-107) 05/07/24 05:25 Carbon Dioxide 26.0 mmol/L (21.0-32.0) 05/07/24 05:25 Anion Gap 7 (5-15) 05/07/24 05:25 BUN 14 mg/dL (7-18) 05/07/24 05:25 Creatinine 0.88 mg/dL (0.55-1.02) 05/07/24 05:25 Est GFR (MDRD) Af Amer 80 mL/min (>60) 05/07/24 05:25 Est GFR (MDRD) Non-Af 66 mL/min (>60) 05/07/24 05:25 BUN/Creatinine Ratio 16.0 RATIO (10-20) 05/07/24 05:25 Glucose 205 mg/dL (74-106) H 05/07/24 05:25 Vancomycin Trough 22.0 ug/mL (5.0-15.0) H 05/08/24 03:45 Random Vancomycin 15.2 ug/mL (0.0-15.0) H 05/08/24 15:34 Microbiology Microbiology: Microbiology 05/06/24 05:52 Nasal Secretion SARS-CoV-2 Antigen (Rapid) - Final Goal Trough Goal Trough: 15-20 mcg/mL Pharmacy Plan for Drug Dosing Pharmacy Plan for Drug Dosing: VANCOMYCIN LEVEL RECEIVED Current Vancomycin Dose: ON HOLD- Was on 1000mg IV Q12hr Number of Doses Received: several (was on prior to TCU admit at outside facility) Vancomycin Level: 15.2 Hours Since Last Dose: 24hr Renal Function: 0.88 Renal Function Trend: stable Lab/Micro: no new information Vancomycin Plan/Comments: Patient had a trough drawn which resulted in a value of 15.2 (goal 15-20). Since Patient is within therapeutic range, will restart vancomycin at this time. The patient's trough was in goal after having 1g in a 24hr period. In light of this, will restart vancomycin at a dose of 1000mg IV Q24hr to start 05/08 @1700 Pending Level: 05/10/24 @1630, prior to 3rd dose of new regimen Pharmacy Service will continue to monitor and adjust dosing as required.
[2024-05-08 16:58] LABS: Bedside Glucose 129 mg/dL (74-106)
[2024-05-08] MEDS: Vancomycin IV 1,000 MG/200 ML BAG 200 MG IV (17:06)
[2024-05-08] MEDS: 0.9% Normal Saline (250mL Bag) 250 ML 15 ML IV (17:07)
[2024-05-08] MEDS: 0.9 % NaCl (Sterile) Posiflush 10 mL IV (22:34)
[2024-05-08] MEDS: Latanoprost 0.005% 1 Bottle 1 DRP OPHTHALMIC (22:35)
[2024-05-08] MEDS: amLODIPine 5 MG Tablet PO (22:38)
[2024-05-08 22:44] VITALS: BP 149/60; PULSE 67
[2024-05-09] MEDS: Acetaminophen 500 MG Tablet 1000 MG PO ×3 (05:39→21:23)
[2024-05-09] MEDS: cycloBENZAPRine HCl 10 MG Tablet PO (05:45)
[2024-05-09 06:17] LABS: Bedside Glucose 145 mg/dL (74-106)
[2024-05-09] MEDS: Insulin Lispro 100 UNIT/ML INSULN.PEN 15 UNIT SC ×3 (08:20→17:43)
[2024-05-09] MEDS: Aspirin E.C. 81 MG Tablet PO ×2 (08:21→16:47)
[2024-05-09] MEDS: Senna/Docusate Sodium 1 Tablet 2 TABLET PO (08:22)
[2024-05-09] MEDS: Cholecalciferol (VIT D3) 25 MCG TABLET (1,000 UNITS) 50 MCG PO (08:22)
[2024-05-09] MEDS: Cyanocobalamin 500 MCG Tablet 1000 MCG PO (08:22)
[2024-05-09] MEDS: Pantoprazole Sodium 20 MG Tablet PO (08:22)
[2024-05-09] MEDS: Calcium Carb/Vitamin D 1 TABLET Tablet PO (08:22)
[2024-05-09] MEDS: Folic Acid 1 MG Tablet PO (08:22)
[2024-05-09] MEDS: Lisinopril 40 MG Tablet PO (08:23)
[2024-05-09] MEDS: Glucerna Shake 120 ML LIQUID PO ×3 (08:27→16:47)
[2024-05-09] MEDS: 0.9 % NaCl (Sterile) Posiflush 10 mL IV (09:33)
[2024-05-09] MEDS: Ceftriaxone 2 GM in 0.9% Normal Saline (50mL MB+) 50 ML IV (09:33)
[2024-05-09 12:01] LABS: Bedside Glucose 176 mg/dL (74-106)
[2024-05-09 12:28] VITALS: BP 161/61; PULSE 65; RESP 18; TEMP 36.9; O2SAT 92
[2024-05-09] MEDS: Ferrous Sulfate 325 MG Tablet PO (12:51)
[2024-05-09] MEDS: oxyCODONE 5 MG Tablet PO (15:35)
[2024-05-09] MEDS: Vancomycin IV 1,000 MG/200 ML BAG 200 MG IV (16:39)
[2024-05-09 17:11] LABS: Bedside Glucose 111 mg/dL (74-106)
[2024-05-09] MEDS: 0.9% Saline Lock 10 ML Syringe IV (21:22)
[2024-05-09] MEDS: amLODIPine 5 MG Tablet PO (21:23)
[2024-05-09] MEDS: Latanoprost 0.005% 1 Bottle 1 DRP OPHTHALMIC (21:24)
[2024-05-09 21:33] VITALS: BP 134/63; PULSE 93
[2024-05-10] MEDS: oxyCODONE 5 MG Tablet PO ×3 (02:28→16:24)
[2024-05-10] MEDS: Acetaminophen 500 MG Tablet 1000 MG PO ×3 (05:08→20:26)
[2024-05-10 07:17] LABS: Bedside Glucose 155 mg/dL (74-106)
[2024-05-10] MEDS: Cholecalciferol (VIT D3) 25 MCG TABLET (1,000 UNITS) 50 MCG PO (08:04)
[2024-05-10] MEDS: Glucerna Shake 120 ML LIQUID PO ×3 (08:05→17:45)
[2024-05-10] MEDS: Lisinopril 40 MG Tablet PO (08:05)
[2024-05-10] MEDS: Calcium Carb/Vitamin D 1 TABLET Tablet PO (08:05)
[2024-05-10] MEDS: Insulin Lispro 100 UNIT/ML INSULN.PEN 15 UNIT SC ×3 (08:05→17:40)
[2024-05-10] MEDS: Senna/Docusate Sodium 1 Tablet 2 TABLET PO ×2 (08:05→20:26)
[2024-05-10] MEDS: Folic Acid 1 MG Tablet PO (08:06)
[2024-05-10] MEDS: Pantoprazole Sodium 20 MG Tablet PO (08:06)
[2024-05-10] MEDS: Aspirin E.C. 81 MG Tablet PO ×2 (08:06→17:41)
[2024-05-10] MEDS: Cyanocobalamin 500 MCG Tablet 1000 MCG PO (08:06)
[2024-05-10 08:11] VITALS: BP 146/85; PULSE 95
[2024-05-10] MEDS: Ceftriaxone 2 GM in 0.9% Normal Saline (50mL MB+) 50 ML IV (09:49)
[2024-05-10] MEDS: 0.9 % NaCl (Sterile) Posiflush 10 mL IV ×2 (09:49→17:46)
[2024-05-10] MEDS: 0.9% Normal Saline (250mL Bag) 250 ML 15 ML IV (09:50)
[2024-05-10 11:24] LABS: Bedside Glucose 126 mg/dL (74-106)
[2024-05-10] MEDS: Ferrous Sulfate 325 MG Tablet PO (12:11)
[2024-05-10] MEDS: cycloBENZAPRine HCl 10 MG Tablet PO (12:13)
[2024-05-10 13:24] VITALS: BP 115/63; PULSE 94; RESP 18; TEMP 36.9; O2SAT 95
[2024-05-10] MEDS: Vancomycin Trough/Random Due 1 LAB MC (16:35)
[2024-05-10 17:11] LABS: Vancomycin, Trough Level 10.4 ug/mL (5.0-15.0)
--- NOTE | 2024-05-10 17:23 | PCM.RX.CS ---
Consult Antibiotic Management Pharmacy has been consulted to manage selected antibiotic: Vancomycin Type of Intervention Type of Consult: Follow-up Labs Labs: Sodium 137 mmol/L (136-145) 05/07/24 05:25 Potassium 4.4 mmol/L (3.5-5.1) 05/07/24 05:25 Chloride 104 mmol/L (98-107) 05/07/24 05:25 Carbon Dioxide 26.0 mmol/L (21.0-32.0) 05/07/24 05:25 Anion Gap 7 (5-15) 05/07/24 05:25 BUN 14 mg/dL (7-18) 05/07/24 05:25 Creatinine 0.88 mg/dL (0.55-1.02) 05/07/24 05:25 Est GFR (MDRD) Af Amer 80 mL/min (>60) 05/07/24 05:25 Est GFR (MDRD) Non-Af 66 mL/min (>60) 05/07/24 05:25 BUN/Creatinine Ratio 16.0 RATIO (10-20) 05/07/24 05:25 Glucose 205 mg/dL (74-106) H 05/07/24 05:25 Vancomycin Trough 10.4 ug/mL (5.0-15.0) 05/10/24 16:20 Random Vancomycin 15.2 ug/mL (0.0-15.0) H 05/08/24 15:34 Microbiology Microbiology: Microbiology 05/06/24 05:52 Nasal Secretion SARS-CoV-2 Antigen (Rapid) - Final Goal Trough Goal Trough: 15-20 mcg/mL Pharmacy Plan for Drug Dosing Pharmacy Plan for Drug Dosing: VANCOMYCIN LEVEL RECEIVED Current Vancomycin Dose: 1000mg IV Q24h Number of Doses Received: 2 (of new regimen) Vancomycin Level: 10.4 Hours Since Last Dose: 23.5hr Renal Function: 0.88 Renal Function Trend: stable Lab/Micro: no new info Vancomycin Plan/Comments: Patient had a trough drawn which resulted in a value of 10.4 (goal 15-20). Patient's level is now subtherapeutic. Will decrease the dose and change patient back to every 12 hour frequency to see if trough will be within goal. Will start vancomycin 750mg IV Q12hr to start 05/10/24 @1800 Pending Level: 9/4/24@ 0530, prior to 4th total dose of new regimen. Pharmacy Service will continue to monitor and adjust dosing as required.
[2024-05-10] MEDS: Vancomycin HCl 750 MG in 0.9% Normal Saline (250mL Bag) 250 ML 250 MG IV (18:03)
[2024-05-10 18:05] LABS: Bedside Glucose 123 mg/dL (74-106)
[2024-05-10 20:20] VITALS: BP 131/96
[2024-05-10] MEDS: Latanoprost 0.005% 1 Bottle 1 DRP OPHTHALMIC (20:25)
[2024-05-10] MEDS: amLODIPine 5 MG Tablet PO (20:26)
[2024-05-10 20:33] VITALS: PULSE 98; RESP 16; O2SAT 96
[2024-05-11] MEDS: cycloBENZAPRine HCl 10 MG Tablet PO ×2 (00:21→15:08)
[2024-05-11] MEDS: oxyCODONE 5 MG Tablet PO ×3 (00:21→13:27)
[2024-05-11] MEDS: 0.9% Saline Lock 10 ML Syringe IV ×3 (05:48→18:46)
[2024-05-11] MEDS: Vancomycin HCl 750 MG in 0.9% Normal Saline (250mL Bag) 250 ML 250 MG IV ×2 (05:48→18:46)
[2024-05-11] MEDS: Acetaminophen 500 MG Tablet 1000 MG PO ×3 (05:49→21:06)
[2024-05-11 06:30] LABS: Bedside Glucose 151 mg/dL (74-106)
[2024-05-11] MEDS: Insulin Lispro 100 UNIT/ML INSULN.PEN 15 UNIT SC ×2 (08:52→16:47)
[2024-05-11] MEDS: Lisinopril 40 MG Tablet PO (08:53)
[2024-05-11] MEDS: Calcium Carb/Vitamin D 1 TABLET Tablet PO (08:53)
[2024-05-11] MEDS: Aspirin E.C. 81 MG Tablet PO ×2 (08:53→16:47)
[2024-05-11] MEDS: Folic Acid 1 MG Tablet PO (08:53)
[2024-05-11] MEDS: Glucerna Shake 120 ML LIQUID PO ×2 (08:53→16:47)
[2024-05-11] MEDS: Senna/Docusate Sodium 1 Tablet 2 TABLET PO ×2 (08:53→21:06)
[2024-05-11] MEDS: Cholecalciferol (VIT D3) 25 MCG TABLET (1,000 UNITS) 50 MCG PO (08:53)
[2024-05-11] MEDS: Pantoprazole Sodium 20 MG Tablet PO (08:53)
[2024-05-11] MEDS: Ceftriaxone 2 GM in 0.9% Normal Saline (50mL MB+) 50 ML IV (09:06)
[2024-05-11] MEDS: Cyanocobalamin 500 MCG Tablet 1000 MCG PO (09:07)
[2024-05-11 09:17] VITALS: BP 129/55; PULSE 64; RESP 16; TEMP 36.3; O2SAT 95
[2024-05-11 10:13] VITALS: BMI 32.3
[2024-05-11] MEDS: Ferrous Sulfate 325 MG Tablet PO (13:26)
[2024-05-11 16:32] LABS: Bedside Glucose 171 mg/dL (74-106)
[2024-05-11 21:05] VITALS: BP 128/57; PULSE 59; O2SAT 94
[2024-05-11] MEDS: amLODIPine 5 MG Tablet PO (21:06)
[2024-05-11] MEDS: Latanoprost 0.005% 1 Bottle 1 DRP OPHTHALMIC (21:07)
[2024-05-12] MEDS: oxyCODONE 5 MG Tablet PO ×3 (00:18→19:57)
[2024-05-12] MEDS: Acetaminophen 500 MG Tablet 1000 MG PO ×3 (05:27→21:50)
[2024-05-12] MEDS: cycloBENZAPRine HCl 10 MG Tablet PO ×3 (05:29→19:57)
[2024-05-12 05:30] VITALS: PULSE 76; O2SAT 93
[2024-05-12] MEDS: Vancomycin Trough/Random Due 1 LAB MC (05:32)
[2024-05-12 06:51] LABS: Bedside Glucose 164 mg/dL (74-106)
--- NOTE | 2024-05-12 06:53 | NURSING ---
Vanco trough still pending, unable to administer Vanco at scheduled time. Will inform oncoming shift.
[2024-05-12 07:08] LABS: Vancomycin, Trough Level 15.6 ug/mL (5.0-15.0)
--- NOTE | 2024-05-12 07:21 | PCM.RX.CS ---
Consult Antibiotic Management Pharmacy has been consulted to manage selected antibiotic: Vancomycin Type of Intervention Type of Consult: Follow-up Prior Doses of Antibiotics Prior Doses of Antibiotics Received/Current Regimen: current dose is 750mg IV q12h Labs Labs: Sodium 137 mmol/L (136-145) 05/07/24 05:25 Potassium 4.4 mmol/L (3.5-5.1) 05/07/24 05:25 Chloride 104 mmol/L (98-107) 05/07/24 05:25 Carbon Dioxide 26.0 mmol/L (21.0-32.0) 05/07/24 05:25 Anion Gap 7 (5-15) 05/07/24 05:25 BUN 14 mg/dL (7-18) 05/07/24 05:25 Creatinine 0.88 mg/dL (0.55-1.02) 05/07/24 05:25 Est GFR (MDRD) Af Amer 80 mL/min (>60) 05/07/24 05:25 Est GFR (MDRD) Non-Af 66 mL/min (>60) 05/07/24 05:25 BUN/Creatinine Ratio 16.0 RATIO (10-20) 05/07/24 05:25 Glucose 205 mg/dL (74-106) H 05/07/24 05:25 Vancomycin Trough 15.6 ug/mL (5.0-15.0) H 05/12/24 05:22 Random Vancomycin 15.2 ug/mL (0.0-15.0) H 05/08/24 15:34 Microbiology Microbiology: Microbiology 05/06/24 05:52 Nasal Secretion SARS-CoV-2 Antigen (Rapid) - Final Dosing Weight Weight used for dosin kg Estimated Creatinine Clearance Estimated Creatinine Clearance: 59ml/min Goal Trough Goal Trough: 15-20 mcg/mL Pharmacy Plan for Drug Dosing Pharmacy Plan for Drug Dosing: The vanc trough drawn at 05:22 today was 15.6. This is within goal so will keep same dose. Repeat a trough in 2 days per protocol. Pharmacy Service will continue to monitor and adjust dosing as required. Follow-Up Labs Follow-Up Labs: Trough: Vancomycin Date/Time Labs Ordered Labs to be done on [date and time ordered]: 05/14/24 05:30
[2024-05-12] MEDS: Vancomycin HCl 750 MG in 0.9% Normal Saline (250mL Bag) 250 ML 250 MG IV ×2 (07:51→17:44)
[2024-05-12] MEDS: 0.9 % NaCl (Sterile) Posiflush 10 mL IV ×4 (07:51→21:54)
[2024-05-12] MEDS: 0.9% Normal Saline (250mL Bag) 250 ML IV (07:51)
[2024-05-12] MEDS: Glucerna Shake 120 ML LIQUID PO ×3 (07:57→17:44)
[2024-05-12] MEDS: Calcium Carb/Vitamin D 1 TABLET Tablet PO (07:57)
[2024-05-12] MEDS: Cyanocobalamin 500 MCG Tablet 1000 MCG PO (07:57)
[2024-05-12] MEDS: Pantoprazole Sodium 20 MG Tablet PO (07:57)
[2024-05-12] MEDS: Aspirin E.C. 81 MG Tablet PO ×2 (07:57→17:44)
[2024-05-12] MEDS: Folic Acid 1 MG Tablet PO (07:57)
[2024-05-12] MEDS: Cholecalciferol (VIT D3) 25 MCG TABLET (1,000 UNITS) 50 MCG PO (07:57)
[2024-05-12] MEDS: Lisinopril 40 MG Tablet PO (07:58)
[2024-05-12] MEDS: Insulin Lispro 100 UNIT/ML INSULN.PEN 15 UNIT SC ×3 (08:10→17:43)
[2024-05-12] MEDS: Ceftriaxone 2 GM in 0.9% Normal Saline (50mL MB+) 50 ML IV (10:03)
[2024-05-12 11:49] LABS: Bedside Glucose 175 mg/dL (74-106)
[2024-05-12] MEDS: Ferrous Sulfate 325 MG Tablet PO (13:41)
[2024-05-12 16:00] VITALS: BP 128/52; PULSE 70; RESP 16; TEMP 36.8; O2SAT 94
--- NOTE | 2024-05-12 16:14 | NURSING ---
Vanco trough 15.6 this AM before vanco dose. Pharmacy contacted about whether okay to hang dose and they report that there are no order changes.
[2024-05-12 17:39] LABS: Bedside Glucose 125 mg/dL (74-106)
[2024-05-12] MEDS: Latanoprost 0.005% 1 Bottle 1 DRP OPHTHALMIC (21:48)
[2024-05-12] MEDS: Senna/Docusate Sodium 1 Tablet 2 TABLET PO (21:48)
[2024-05-12] MEDS: amLODIPine 5 MG Tablet PO (21:51)
[2024-05-12 21:58] VITALS: BP 131/56; PULSE 71
[2024-05-13] MEDS: oxyCODONE 5 MG Tablet PO ×3 (02:15→20:08)
[2024-05-13] MEDS: Acetaminophen 500 MG Tablet 1000 MG PO ×3 (05:04→21:41)
[2024-05-13] MEDS: 0.9% Saline Lock 10 ML Syringe IV ×2 (05:05→21:40)
[2024-05-13] MEDS: Vancomycin HCl 750 MG in 0.9% Normal Saline (250mL Bag) 250 ML 250 MG IV ×2 (05:09→18:06)
[2024-05-13 06:37] LABS: Bedside Glucose 133 mg/dL (74-106)
[2024-05-13] MEDS: Glucerna Shake 120 ML LIQUID PO ×3 (07:59→17:52)
[2024-05-13] MEDS: Folic Acid 1 MG Tablet PO (08:00)
[2024-05-13] MEDS: Aspirin E.C. 81 MG Tablet PO ×2 (08:00→17:52)
[2024-05-13] MEDS: Cyanocobalamin 500 MCG Tablet 1000 MCG PO (08:01)
[2024-05-13] MEDS: Calcium Carb/Vitamin D 1 TABLET Tablet PO (08:01)
[2024-05-13] MEDS: Cholecalciferol (VIT D3) 25 MCG TABLET (1,000 UNITS) 50 MCG PO (08:02)
[2024-05-13] MEDS: Senna/Docusate Sodium 1 Tablet 2 TABLET PO ×2 (08:02→21:41)
[2024-05-13] MEDS: Pantoprazole Sodium 20 MG Tablet PO (08:02)
[2024-05-13] MEDS: Lisinopril 40 MG Tablet PO (08:03)
[2024-05-13] MEDS: Insulin Lispro 100 UNIT/ML INSULN.PEN 15 UNIT SC ×3 (08:04→17:52)
[2024-05-13] MEDS: Ceftriaxone 2 GM in 0.9% Normal Saline (50mL MB+) 50 ML IV (10:50)
[2024-05-13 11:40] LABS: Bedside Glucose 146 mg/dL (74-106)
[2024-05-13] MEDS: Ferrous Sulfate 325 MG Tablet PO (12:25)
[2024-05-13 14:02] VITALS: PULSE 63; RESP 16; O2SAT 94
--- NOTE | 2024-05-13 15:13 | PCM.PN.GU ---
Subjective Subjective Doing well. Bowels are moving easily every other day which is an improvement. She feels getting the catheter out will help her move more. Objective Data Objective Data Vital Signs: Vital Signs Temp Pulse Resp BP Pulse Ox O2 Del Method 98.2 F 63 16 131/56 H 94 Room Air 05/12/24 16:00 05/13/24 14:02 05/13/24 14:02 05/12/24 21:58 05/13/24 14:02 05/13/24 14:02 Oxygen Delivery Method Room Air Weight: 91.081 kg Body Mass Index (BMI) 32.3 Intake & Output: Intake and Output for Last 24 Hours 05/11/24 05/12/24 05/13/24 23:59 23:59 23:59 Intake Total 1060 / 1060 1750 / 1750 795 / 795 Output Total 4450 / 4450 2750 / 2750 Balance 1060 / 1060 -2700 / -2700 -1955 / -1955 Lab / Micro Data 05/07/24 05:25 05/07/24 05:25 Labs: Laboratory Results - last 24 hr 05/12/24 17:21: POC Glucose 125 H 05/13/24 05:55: POC Glucose 133 H 05/13/24 11:13: POC Glucose 146 H Micro: Microbiology 05/06/24 05:52 Nasal Secretion SARS-CoV-2 Antigen (Rapid) - Final Physical Exam Const alert, oriented x3 and no apparent distress Narrative: Morrell draining clear urine. Assessment & Plan Assessment/Plan (1) Urinary retention: (2) Constipation: (3) Type 2 diabetes mellitus with hyperglycemia: PLAN: Plan trial of void
[2024-05-13] MEDS: cycloBENZAPRine HCl 10 MG Tablet PO ×2 (15:20→20:08)
[2024-05-13 16:00] VITALS: BP 146/57; PULSE 63; RESP 16; TEMP 37.2; O2SAT 94
[2024-05-13 17:06] LABS: Bedside Glucose 151 mg/dL (74-106)
--- NOTE | 2024-05-13 17:15 | NURSING ---
Morrell removed at this time. Patient tolerated well. Will begin bladder scans and voiding trials.
[2024-05-13 21:39] VITALS: BP 145/70; PULSE 94
[2024-05-13] MEDS: Latanoprost 0.005% 1 Bottle 1 DRP OPHTHALMIC (21:42)
[2024-05-13] MEDS: amLODIPine 5 MG Tablet PO (21:43)
[2024-05-14] MEDS: oxyCODONE 5 MG Tablet PO ×3 (03:39→21:19)
[2024-05-14] MEDS: Acetaminophen 500 MG Tablet 1000 MG PO ×3 (05:48→21:20)
[2024-05-14] MEDS: Vancomycin Trough/Random Due 1 LAB MC (05:48)
[2024-05-14] MEDS: cycloBENZAPRine HCl 10 MG Tablet PO ×2 (05:51→21:20)
[2024-05-14 06:01] LABS: Absolute Neutrophil Count 5.7 X10^3/uL (2.0-7.7); Basophil# 0.06 X10^3/uL; Basophil% 0.6 % (0-1); Eosinophil# 0.36 X10^3/uL; Eosinophils% 3.7 % (0-5); Hematocrit 30.9 % (37-47); Hemoglobin 9.3 g/dL (12.0-15.0); Lymphocyte % 29.7 % (19-41); Mean Corp Hgb Conc 30.1 g/dL (32-36); Mean Corpuscular Hgb 27.4 pg (27.0-32.0); Mean Corpuscular Volume 91.2 fL (81-99); Mean Platelet Vol. 9.2 fl (6.2-12.0); Monocyte# 0.72 X10^3/uL; Monocyte% 7.4 % (0-10); NRBC Flagged by Analyzer 0 % (0-5); Neutrophil # 5.65 X10^3/uL (2.7-7.7); Neutrophil % 57.9 % (47-70); Platelet Count 380 K/mm3 (150-450); RBC Distribution Width SD 49.8 fl (35.1-43.9); Red Blood Count 3.39 M/mm3 (4.2-5.4); White Blood Count 9.8 K/mm3 (4.4-11.0)
[2024-05-14 06:33] LABS: Bedside Glucose 145 mg/dL (74-106)
[2024-05-14 07:37] LABS: Erythrocyte Sedimentation Rate 44 mm/hr (0-30)
[2024-05-14 08:05] LABS: Vancomycin, Trough Level 15.5 ug/mL (5.0-15.0)
--- NOTE | 2024-05-14 08:11 | PCM.RX.CS ---
Consult Antibiotic Management Pharmacy has been consulted to manage selected antibiotic: Vancomycin Type of Intervention Type of Consult: Follow-up Suspected Infection Suspected Infection: Other (PROSTHETIC KNEE INFECTION) Prior Doses of Antibiotics Prior Doses of Antibiotics Received/Current Regimen: Vancomycin 750 mg last given 05/13 @ 3607 Labs Labs: Vancomycin Trough 15.5 ug/mL (5.0-15.0) H 05/14/24 05:40 Random Vancomycin 15.2 ug/mL (0.0-15.0) H 05/08/24 15:34 Microbiology Microbiology: Microbiology 05/06/24 05:52 Nasal Secretion SARS-CoV-2 Antigen (Rapid) - Final Dosing Weight Weight used for dosin kg Estimated Creatinine Clearance Estimated Creatinine Clearance: ~60 Goal Trough Goal Trough: 15-20 mcg/mL Pharmacy Plan for Drug Dosing Pharmacy Plan for Drug Dosing: Vancomycin trough = 15.5, drawn 11.5 hours after last dose, continue current dosing, trough in 4 days. Pharmacy Service will continue to monitor and adjust dosing as required. Follow-Up Labs Follow-Up Labs: Trough: Vancomycin Date/Time Labs Ordered Labs to be done on [date and time ordered]: 05/18/24 @ 4661
[2024-05-14] MEDS: Cyanocobalamin 500 MCG Tablet 1000 MCG PO (08:14)
[2024-05-14] MEDS: Folic Acid 1 MG Tablet PO (08:14)
[2024-05-14] MEDS: Lisinopril 40 MG Tablet PO (08:14)
[2024-05-14] MEDS: Calcium Carb/Vitamin D 1 TABLET Tablet PO (08:14)
[2024-05-14] MEDS: Aspirin E.C. 81 MG Tablet PO ×2 (08:14→18:14)
[2024-05-14] MEDS: Insulin Lispro 100 UNIT/ML INSULN.PEN 15 UNIT SC ×3 (08:15→18:12)
[2024-05-14] MEDS: Pantoprazole Sodium 20 MG Tablet PO (08:15)
[2024-05-14] MEDS: Senna/Docusate Sodium 1 Tablet 2 TABLET PO ×2 (08:15→21:21)
[2024-05-14] MEDS: Cholecalciferol (VIT D3) 25 MCG TABLET (1,000 UNITS) 50 MCG PO (08:15)
[2024-05-14] MEDS: Glucerna Shake 120 ML LIQUID PO ×3 (08:20→18:16)
[2024-05-14 08:22] VITALS: BP 151/64; PULSE 68
[2024-05-14] MEDS: Vancomycin HCl 750 MG in 0.9% Normal Saline (250mL Bag) 250 ML 250 MG IV ×2 (08:32→18:24)
[2024-05-14] MEDS: 0.9 % NaCl (Sterile) Posiflush 10 mL IV ×2 (08:37→18:24)
[2024-05-14 09:46] LABS: Anion Gap 8 (5-15); BUN 15 mg/dL (7-18); BUN/Creat Ratio 16.9 RATIO (10-20); Calcium,Total 9.6 mg/dL (8.5-10.1); Chloride 104 mmol/L (98-107); Creatinine, Serum 0.89 mg/dL (0.55-1.02); EST Glomerular Filtration Rate 65 mL/min (>60); Est Glom Filt Rate - Afr Amer 79 mL/min (>60); Estimated Creatinine Clearance 59.22 ml/min; Glucose 149 mg/dL (74-106); Potassium 4.4 mmol/L (3.5-5.1); Sodium Level 137 mmol/L (136-145)
[2024-05-14] MEDS: Ceftriaxone 2 GM in 0.9% Normal Saline (50mL MB+) 50 ML IV (10:29)
[2024-05-14 11:29] LABS: Bedside Glucose 154 mg/dL (74-106)
[2024-05-14] MEDS: Ferrous Sulfate 325 MG Tablet PO (11:52)
[2024-05-14 15:24] VITALS: BP 156/74; PULSE 94; RESP 18; TEMP 36.3; O2SAT 95
[2024-05-14 16:44] LABS: Bedside Glucose 121 mg/dL (74-106)
[2024-05-14] MEDS: 0.9% Normal Saline (250mL Bag) 250 ML 15 ML IV (18:25)
[2024-05-14] MEDS: 0.9% Saline Lock 10 ML Syringe IV ×2 (19:38→19:42)
[2024-05-14 21:16] VITALS: BP 158/60; PULSE 66
[2024-05-14] MEDS: amLODIPine 5 MG Tablet PO (21:20)
[2024-05-14] MEDS: Latanoprost 0.005% 1 Bottle 1 DRP OPHTHALMIC (21:21)
[2024-05-15] MEDS: 0.9% Saline Lock 10 ML Syringe IV ×4 (05:18→19:41)
[2024-05-15] MEDS: Vancomycin HCl 750 MG in 0.9% Normal Saline (250mL Bag) 250 ML 250 MG IV ×2 (05:23→17:41)
[2024-05-15] MEDS: Acetaminophen 500 MG Tablet 1000 MG PO ×3 (05:24→20:59)
[2024-05-15 06:28] LABS: Bedside Glucose 137 mg/dL (74-106)
[2024-05-15] MEDS: Insulin Lispro 100 UNIT/ML INSULN.PEN 15 UNIT SC ×3 (08:01→17:38)
[2024-05-15] MEDS: Lisinopril 40 MG Tablet PO (08:02)
[2024-05-15] MEDS: Senna/Docusate Sodium 1 Tablet 2 TABLET PO ×2 (08:05→20:58)
[2024-05-15] MEDS: Cyanocobalamin 500 MCG Tablet 1000 MCG PO (08:06)
[2024-05-15] MEDS: Aspirin E.C. 81 MG Tablet PO ×2 (08:06→17:38)
[2024-05-15] MEDS: Calcium Carb/Vitamin D 1 TABLET Tablet PO (08:06)
[2024-05-15] MEDS: Pantoprazole Sodium 20 MG Tablet PO (08:06)
[2024-05-15] MEDS: Cholecalciferol (VIT D3) 25 MCG TABLET (1,000 UNITS) 50 MCG PO (08:06)
[2024-05-15] MEDS: Folic Acid 1 MG Tablet PO (08:07)
[2024-05-15] MEDS: Glucerna Shake 120 ML LIQUID PO ×3 (08:08→17:37)
[2024-05-15 08:32] VITALS: BP 175/75; PULSE 96; RESP 16; TEMP 36.3; O2SAT 97
[2024-05-15] MEDS: oxyCODONE 5 MG Tablet PO (09:13)
[2024-05-15] MEDS: Ceftriaxone 2 GM in 0.9% Normal Saline (50mL MB+) 50 ML IV (09:35)
[2024-05-15] MEDS: Ferrous Sulfate 325 MG Tablet PO (12:10)
[2024-05-15 12:29] LABS: Bedside Glucose 127 mg/dL (74-106)
[2024-05-15 15:25] VITALS: BP 144/73
[2024-05-15 18:16] LABS: Bedside Glucose 126 mg/dL (74-106)
[2024-05-15] MEDS: cycloBENZAPRine HCl 10 MG Tablet PO (19:49)
[2024-05-15 20:00] VITALS: PULSE 92; RESP 16; O2SAT 94
[2024-05-15] MEDS: Latanoprost 0.005% 1 Bottle 1 DRP OPHTHALMIC (20:58)
[2024-05-15] MEDS: amLODIPine 5 MG Tablet PO (21:03)
[2024-05-15 21:06] VITALS: BP 162/75; PULSE 94; O2SAT 94
[2024-05-16] MEDS: oxyCODONE 5 MG Tablet PO ×3 (03:54→17:42)
[2024-05-16] MEDS: 0.9% Saline Lock 10 ML Syringe IV ×3 (05:27→17:40)
[2024-05-16] MEDS: Vancomycin HCl 750 MG in 0.9% Normal Saline (250mL Bag) 250 ML 250 MG IV ×2 (05:28→17:39)
[2024-05-16] MEDS: Acetaminophen 500 MG Tablet 1000 MG PO ×3 (05:28→21:42)
[2024-05-16 06:42] LABS: Bedside Glucose 150 mg/dL (74-106)
[2024-05-16 08:06] VITALS: BP 162/75; PULSE 102; RESP 16; TEMP 36.4; O2SAT 94
[2024-05-16] MEDS: Insulin Lispro 100 UNIT/ML INSULN.PEN 15 UNIT SC ×3 (08:07→17:40)
[2024-05-16] MEDS: Calcium Carb/Vitamin D 1 TABLET Tablet PO (08:08)
[2024-05-16] MEDS: Folic Acid 1 MG Tablet PO (08:08)
[2024-05-16] MEDS: Glucerna Shake 120 ML LIQUID PO ×3 (08:08→17:42)
[2024-05-16] MEDS: Aspirin E.C. 81 MG Tablet PO ×2 (08:08→17:39)
[2024-05-16] MEDS: Cholecalciferol (VIT D3) 25 MCG TABLET (1,000 UNITS) 50 MCG PO (08:08)
[2024-05-16] MEDS: Cyanocobalamin 500 MCG Tablet 1000 MCG PO (08:08)
[2024-05-16] MEDS: Senna/Docusate Sodium 1 Tablet 2 TABLET PO (08:09)
[2024-05-16] MEDS: Pantoprazole Sodium 20 MG Tablet PO (08:09)
[2024-05-16] MEDS: Lisinopril 40 MG Tablet PO (08:09)
[2024-05-16] MEDS: 0.9% Normal Saline (250mL Bag) 250 ML 15 ML IV (09:05)
[2024-05-16] MEDS: Ceftriaxone 2 GM in 0.9% Normal Saline (50mL MB+) 50 ML IV (09:06)
[2024-05-16] MEDS: cycloBENZAPRine HCl 10 MG Tablet PO (09:08)
[2024-05-16 10:00] VITALS: RESP 16
[2024-05-16] MEDS: Ferrous Sulfate 325 MG Tablet PO (12:04)
[2024-05-16 12:07] LABS: Bedside Glucose 131 mg/dL (74-106)
[2024-05-16 16:51] LABS: Bedside Glucose 79 mg/dL (74-106)
[2024-05-16] MEDS: Latanoprost 0.005% 1 Bottle 1 DRP OPHTHALMIC (21:41)
[2024-05-16] MEDS: amLODIPine 5 MG Tablet PO (21:42)
[2024-05-16] MEDS: 0.9 % NaCl (Sterile) Posiflush 10 mL IV (21:53)
[2024-05-17] MEDS: oxyCODONE 5 MG Tablet PO ×3 (02:05→17:27)
[2024-05-17] MEDS: Acetaminophen 500 MG Tablet 1000 MG PO ×3 (05:57→21:09)
[2024-05-17] MEDS: Vancomycin HCl 750 MG in 0.9% Normal Saline (250mL Bag) 250 ML 250 MG IV ×2 (05:59→17:30)
[2024-05-17] MEDS: 0.9% Saline Lock 10 ML Syringe IV (06:03)
[2024-05-17 06:19] LABS: Bedside Glucose 149 mg/dL (74-106)
[2024-05-17 08:00] VITALS: BP 141/72; PULSE 103; RESP 18; TEMP 36.4; O2SAT 94
[2024-05-17] MEDS: Cholecalciferol (VIT D3) 25 MCG TABLET (1,000 UNITS) 50 MCG PO (08:03)
[2024-05-17] MEDS: Pantoprazole Sodium 20 MG Tablet PO (08:03)
[2024-05-17] MEDS: Insulin Lispro 100 UNIT/ML INSULN.PEN 15 UNIT SC ×3 (08:03→17:27)
[2024-05-17] MEDS: Folic Acid 1 MG Tablet PO (08:04)
[2024-05-17] MEDS: Cyanocobalamin 500 MCG Tablet 1000 MCG PO (08:04)
[2024-05-17] MEDS: Glucerna Shake 120 ML LIQUID PO ×2 (08:04→11:54)
[2024-05-17] MEDS: Lisinopril 40 MG Tablet PO (08:04)
[2024-05-17] MEDS: Calcium Carb/Vitamin D 1 TABLET Tablet PO (08:04)
[2024-05-17] MEDS: Aspirin E.C. 81 MG Tablet PO ×2 (08:06→17:28)
[2024-05-17] MEDS: Alteplase 2 MG/2 ML Vial IV (10:05)
[2024-05-17] MEDS: cycloBENZAPRine HCl 10 MG Tablet PO (10:05)
[2024-05-17] MEDS: Ceftriaxone 2 GM in 0.9% Normal Saline (50mL MB+) 50 ML IV (10:09)
[2024-05-17] MEDS: Ferrous Sulfate 325 MG Tablet PO (11:55)
[2024-05-17 17:13] LABS: Bedside Glucose 118 mg/dL (74-106)
[2024-05-17] MEDS: amLODIPine 5 MG Tablet PO (20:25)
[2024-05-17] MEDS: Senna/Docusate Sodium 1 Tablet 2 TABLET PO (20:26)
[2024-05-17] MEDS: Latanoprost 0.005% 1 Bottle 1 DRP OPHTHALMIC (20:27)
[2024-05-17 20:33] VITALS: BP 136/75; PULSE 100
[2024-05-18] MEDS: oxyCODONE 5 MG Tablet PO ×3 (00:47→22:59)
[2024-05-18 06:01] LABS: Vancomycin, Trough Level 15.9 ug/mL (5.0-15.0)
[2024-05-18] MEDS: Vancomycin HCl 750 MG in 0.9% Normal Saline (250mL Bag) 250 ML 250 MG IV ×2 (06:23→17:17)
[2024-05-18] MEDS: Acetaminophen 500 MG Tablet 1000 MG PO ×3 (06:23→21:04)
[2024-05-18] MEDS: 0.9% Saline Lock 10 ML Syringe IV ×2 (06:23→10:06)
--- NOTE | 2024-05-18 06:27 | PCM.RX.CS ---
Consult Antibiotic Management Pharmacy has been consulted to manage selected antibiotic: Vancomycin Type of Intervention Type of Consult: Follow-up Suspected Infection Suspected Infection: Other Labs Labs: Sodium 137 mmol/L (136-145) 05/14/24 05:40 Potassium 4.4 mmol/L (3.5-5.1) 05/14/24 05:40 Chloride 104 mmol/L (98-107) 05/14/24 05:40 Carbon Dioxide 25.0 mmol/L (21.0-32.0) 05/14/24 05:40 Anion Gap 8 (5-15) 05/14/24 05:40 BUN 15 mg/dL (7-18) 05/14/24 05:40 Creatinine 0.89 mg/dL (0.55-1.02) 05/14/24 05:40 Est GFR (MDRD) Af Amer 79 mL/min (>60) 05/14/24 05:40 Est GFR (MDRD) Non-Af 65 mL/min (>60) 05/14/24 05:40 BUN/Creatinine Ratio 16.9 RATIO (10-20) 05/14/24 05:40 Glucose 149 mg/dL (74-106) H 05/14/24 05:40 Vancomycin Trough 15.9 ug/mL (5.0-15.0) H 05/18/24 05:30 Random Vancomycin 15.2 ug/mL (0.0-15.0) H 05/08/24 15:34 Microbiology Microbiology: Microbiology 05/06/24 05:52 Nasal Secretion SARS-CoV-2 Antigen (Rapid) - Final Goal Trough Goal Trough: 15-20 mcg/mL Pharmacy Plan for Drug Dosing Pharmacy Plan for Drug Dosing: VANCOMYCIN LEVEL RECEIVED Current Vancomycin Dose: 750mg q12h (at ,18) Number of Doses Received: x15 doses of 750mg Vancomycin Level: 15.9 (drawn at 0530 on 05/18/24) Hours Since Last Dose: 12 hours since last 750mg dose on 05/17/24 at 1730 Renal Function: SrCr 0.89 Renal Function Trend: Lab/Micro: Vancomycin Plan/Comments: resulted trough of 15.9 is within the ordered goal trough range of 15-20. recommend continuing current dose of 750mg q12h Pending Level: 05/20/24 at 1730 Pharmacy Service will continue to monitor and adjust dosing as required. Follow-Up Labs Follow-Up Labs: Trough: Vancomycin (05/20/24 at 1730)
[2024-05-18 06:49] LABS: Bedside Glucose 139 mg/dL (74-106)
[2024-05-18] MEDS: Senna/Docusate Sodium 1 Tablet 2 TABLET PO (08:01)
[2024-05-18] MEDS: Insulin Lispro 100 UNIT/ML INSULN.PEN 15 UNIT SC ×3 (08:01→17:16)
[2024-05-18] MEDS: Lisinopril 40 MG Tablet PO (08:01)
[2024-05-18] MEDS: Pantoprazole Sodium 20 MG Tablet PO (08:02)
[2024-05-18] MEDS: Folic Acid 1 MG Tablet PO (08:02)
[2024-05-18] MEDS: Cyanocobalamin 500 MCG Tablet 1000 MCG PO (08:02)
[2024-05-18] MEDS: Calcium Carb/Vitamin D 1 TABLET Tablet PO (08:02)
[2024-05-18] MEDS: Cholecalciferol (VIT D3) 25 MCG TABLET (1,000 UNITS) 50 MCG PO (08:03)
[2024-05-18] MEDS: Aspirin E.C. 81 MG Tablet PO ×2 (08:03→17:16)
[2024-05-18] MEDS: Glucerna Shake 120 ML LIQUID PO ×3 (08:06→17:16)
[2024-05-18] MEDS: cycloBENZAPRine HCl 10 MG Tablet PO (09:18)
[2024-05-18] MEDS: 0.9% Normal Saline (250mL Bag) 250 ML 15 ML IV (10:05)
[2024-05-18] MEDS: Ceftriaxone 2 GM in 0.9% Normal Saline (50mL MB+) 50 ML IV (10:05)
[2024-05-18 11:27] LABS: Bedside Glucose 234 mg/dL (74-106)
[2024-05-18] MEDS: Ferrous Sulfate 325 MG Tablet PO (11:32)
[2024-05-18 13:00] VITALS: BMI 32.3
[2024-05-18 15:20] VITALS: BP 146/75; PULSE 95; RESP 16; TEMP 36.4; O2SAT 96
[2024-05-18 17:26] LABS: Bedside Glucose 143 mg/dL (74-106)
[2024-05-18] MEDS: amLODIPine 5 MG Tablet PO (20:35)
[2024-05-18] MEDS: Latanoprost 0.005% 1 Bottle 1 DRP OPHTHALMIC (20:36)
[2024-05-19] MEDS: 0.9% Saline Lock 10 ML Syringe IV (06:18)
[2024-05-19] MEDS: Acetaminophen 500 MG Tablet 1000 MG PO ×3 (06:18→22:17)
[2024-05-19] MEDS: Vancomycin HCl 750 MG in 0.9% Normal Saline (250mL Bag) 250 ML 250 MG IV ×2 (06:21→17:06)
[2024-05-19] MEDS: cycloBENZAPRine HCl 10 MG Tablet PO ×2 (06:28→22:16)
[2024-05-19 07:59] LABS: Bedside Glucose 117 mg/dL (74-106)
[2024-05-19] MEDS: Insulin Lispro 100 UNIT/ML INSULN.PEN 15 UNIT SC ×3 (08:15→17:50)
[2024-05-19] MEDS: Pantoprazole Sodium 20 MG Tablet PO (08:16)
[2024-05-19] MEDS: Aspirin E.C. 81 MG Tablet PO ×2 (08:16→17:08)
[2024-05-19] MEDS: Cyanocobalamin 500 MCG Tablet 1000 MCG PO (08:16)
[2024-05-19] MEDS: Lisinopril 40 MG Tablet PO (08:16)
[2024-05-19] MEDS: Cholecalciferol (VIT D3) 25 MCG TABLET (1,000 UNITS) 50 MCG PO (08:16)
[2024-05-19] MEDS: Senna/Docusate Sodium 1 Tablet 2 TABLET PO ×2 (08:16→22:17)
[2024-05-19] MEDS: Folic Acid 1 MG Tablet PO (08:22)
[2024-05-19] MEDS: Calcium Carb/Vitamin D 1 TABLET Tablet PO (08:22)
[2024-05-19] MEDS: Glucerna Shake 120 ML LIQUID PO ×3 (08:25→17:08)
[2024-05-19 08:27] VITALS: BP 148/62; PULSE 64
[2024-05-19] MEDS: Ceftriaxone 2 GM in 0.9% Normal Saline (50mL MB+) 50 ML IV (10:24)
[2024-05-19] MEDS: 0.9 % NaCl (Sterile) Posiflush 10 mL IV ×2 (10:26→17:06)
[2024-05-19] MEDS: oxyCODONE 5 MG Tablet PO (10:28)
[2024-05-19 11:39] LABS: Bedside Glucose 150 mg/dL (74-106)
[2024-05-19] MEDS: Ferrous Sulfate 325 MG Tablet PO (12:00)
[2024-05-19 15:07] VITALS: BP 149/71; PULSE 96; RESP 18; TEMP 36.2; O2SAT 94
[2024-05-19] MEDS: 0.9% Normal Saline (250mL Bag) 250 ML 15 ML IV (17:07)
[2024-05-19 18:01] LABS: Bedside Glucose 137 mg/dL (74-106)
[2024-05-19] MEDS: Latanoprost 0.005% 1 Bottle 1 DRP OPHTHALMIC (22:17)
[2024-05-19] MEDS: amLODIPine 5 MG Tablet PO (22:17)
[2024-05-20] MEDS: oxyCODONE 5 MG Tablet PO ×4 (03:32→23:56)
[2024-05-20] MEDS: Acetaminophen 500 MG Tablet 1000 MG PO ×3 (05:45→21:05)
[2024-05-20] MEDS: Vancomycin HCl 750 MG in 0.9% Normal Saline (250mL Bag) 250 ML 250 MG IV ×2 (05:53→18:50)
[2024-05-20 06:23] LABS: Bedside Glucose 146 mg/dL (74-106)
[2024-05-20] MEDS: Senna/Docusate Sodium 1 Tablet 2 TABLET PO (08:16)
[2024-05-20] MEDS: Calcium Carb/Vitamin D 1 TABLET Tablet PO (08:17)
[2024-05-20] MEDS: Cholecalciferol (VIT D3) 25 MCG TABLET (1,000 UNITS) 50 MCG PO (08:17)
[2024-05-20] MEDS: Folic Acid 1 MG Tablet PO (08:17)
[2024-05-20] MEDS: Cyanocobalamin 500 MCG Tablet 1000 MCG PO (08:17)
[2024-05-20] MEDS: Pantoprazole Sodium 20 MG Tablet PO (08:17)
[2024-05-20] MEDS: Aspirin E.C. 81 MG Tablet PO ×2 (08:17→18:03)
[2024-05-20] MEDS: Glucerna Shake 120 ML LIQUID PO ×3 (08:18→18:03)
[2024-05-20] MEDS: Lisinopril 40 MG Tablet PO (08:19)
[2024-05-20] MEDS: FLU VACCINE **HIGH DOSE** TV 24-25 180 MCG/0.5 ML SYRINGE IM (08:21)
[2024-05-20] MEDS: Insulin Lispro 100 UNIT/ML INSULN.PEN 15 UNIT SC ×3 (08:21→18:03)
[2024-05-20 08:29] VITALS: BP 163/75; PULSE 61
[2024-05-20] MEDS: Ceftriaxone 2 GM in 0.9% Normal Saline (50mL MB+) 50 ML IV (10:47)
[2024-05-20] MEDS: cycloBENZAPRine HCl 10 MG Tablet PO (10:53)
[2024-05-20 11:25] LABS: Bedside Glucose 108 mg/dL (74-106)
[2024-05-20] MEDS: Ferrous Sulfate 325 MG Tablet PO (12:32)
[2024-05-20 14:25] VITALS: BP 141/61; PULSE 58; RESP 18; TEMP 36.3; O2SAT 99
[2024-05-20 17:19] LABS: Bedside Glucose 122 mg/dL (74-106)
[2024-05-20] MEDS: Vancomycin Trough/Random Due 1 LAB MC (18:02)
[2024-05-20 18:15] LABS: Vancomycin, Trough Level 17.4 ug/mL (5.0-15.0)
--- NOTE | 2024-05-20 18:35 | PCM.RX.CS ---
Consult Antibiotic Management Pharmacy has been consulted to manage selected antibiotic: Vancomycin Type of Intervention Type of Consult: Follow-up Suspected Infection Suspected Infection: Other (PROSTHETIC KNEE INFECTION) Prior Doses of Antibiotics Prior Doses of Antibiotics Received/Current Regimen: Vancomycin 750 mg Q12H, last dose 05/20/24 @ 0553 Labs Labs: Sodium 137 mmol/L (136-145) 05/14/24 05:40 Potassium 4.4 mmol/L (3.5-5.1) 05/14/24 05:40 Chloride 104 mmol/L (98-107) 05/14/24 05:40 Carbon Dioxide 25.0 mmol/L (21.0-32.0) 05/14/24 05:40 Anion Gap 8 (5-15) 05/14/24 05:40 BUN 15 mg/dL (7-18) 05/14/24 05:40 Creatinine 0.89 mg/dL (0.55-1.02) 05/14/24 05:40 Est GFR (MDRD) Af Amer 79 mL/min (>60) 05/14/24 05:40 Est GFR (MDRD) Non-Af 65 mL/min (>60) 05/14/24 05:40 BUN/Creatinine Ratio 16.9 RATIO (10-20) 05/14/24 05:40 Glucose 149 mg/dL (74-106) H 05/14/24 05:40 Vancomycin Trough 17.4 ug/mL (5.0-15.0) H 05/20/24 17:24 Random Vancomycin 15.2 ug/mL (0.0-15.0) H 05/08/24 15:34 Microbiology Microbiology: Microbiology 05/06/24 05:52 Nasal Secretion SARS-CoV-2 Antigen (Rapid) - Final Dosing Weight Weight used for dosin kg Estimated Creatinine Clearance Estimated Creatinine Clearance: ~59 Goal Trough Goal Trough: 15-20 mcg/mL Pharmacy Plan for Drug Dosing Pharmacy Plan for Drug Dosing: Vancomycin trough = 17.4, continue 750 mg Q12H dosing, trough in 4 days Pharmacy Service will continue to monitor and adjust dosing as required. Follow-Up Labs Follow-Up Labs: Trough: Vancomycin Date/Time Labs Ordered Labs to be done on [date and time ordered]: 05/24/24 @ 3105
[2024-05-20] MEDS: 0.9 % NaCl (Sterile) Posiflush 10 mL IV (18:51)
[2024-05-20] MEDS: Latanoprost 0.005% 1 Bottle 1 DRP OPHTHALMIC (21:06)
[2024-05-20] MEDS: amLODIPine 5 MG Tablet PO (21:06)
[2024-05-21 01:06] VITALS: PULSE 66; RESP 16; O2SAT 93
[2024-05-21] MEDS: 0.9% Saline Lock 10 ML Syringe IV ×3 (05:09→19:40)
[2024-05-21] MEDS: Vancomycin HCl 750 MG in 0.9% Normal Saline (250mL Bag) 250 ML 250 MG IV ×2 (05:14→17:54)
[2024-05-21] MEDS: Acetaminophen 500 MG Tablet 1000 MG PO ×3 (05:19→21:14)
[2024-05-21 06:08] LABS: Erythrocyte Sedimentation Rate 28 mm/hr (0-30)
[2024-05-21 06:11] LABS: Absolute Neutrophil Count 3.9 X10^3/uL (2.0-7.7); Basophil# 0.05 X10^3/uL; Basophil% 0.7 % (0-1); Eosinophil# 0.31 X10^3/uL; Eosinophils% 4.4 % (0-5); Hematocrit 29.2 % (37-47); Hemoglobin 8.8 g/dL (12.0-15.0); Lymphocyte % 31.1 % (19-41); Mean Corp Hgb Conc 30.1 g/dL (32-36); Mean Corpuscular Hgb 27.8 pg (27.0-32.0); Mean Corpuscular Volume 92.4 fL (81-99); Mean Platelet Vol. 9.8 fl (6.2-12.0); Monocyte# 0.57 X10^3/uL; Monocyte% 8.1 % (0-10); NRBC Flagged by Analyzer 0 % (0-5); Neutrophil # 3.89 X10^3/uL (2.7-7.7); Platelet Count 255 K/mm3 (150-450); RBC Distribution Width CV 15.1 % (11.6-14.6); RBC Distribution Width SD 50.4 fl (35.1-43.9); Red Blood Count 3.16 M/mm3 (4.2-5.4); White Blood Count 7.1 K/mm3 (4.4-11.0)
[2024-05-21] MEDS: 0.9% Normal Saline (250mL Bag) 250 ML 15 ML IV (06:25)
[2024-05-21 06:34] LABS: Anion Gap 7 (5-15); BUN 17 mg/dL (7-18); BUN/Creat Ratio 22.6 RATIO (10-20); Calcium,Total 9.1 mg/dL (8.5-10.1); Chloride 106 mmol/L (98-107); Creatinine, Serum 0.75 mg/dL (0.55-1.02); EST Glomerular Filtration Rate 79 mL/min (>60); Est Glom Filt Rate - Afr Amer 96 mL/min (>60); Estimated Creatinine Clearance 65.75 ml/min; Glucose 145 mg/dL (74-106); Potassium 3.9 mmol/L (3.5-5.1); Sodium Level 138 mmol/L (136-145)
[2024-05-21 06:36] LABS: Bedside Glucose 140 mg/dL (74-106)
[2024-05-21] MEDS: Insulin Lispro 100 UNIT/ML INSULN.PEN 15 UNIT SC ×3 (08:10→17:51)
[2024-05-21] MEDS: Glucerna Shake 120 ML LIQUID PO ×3 (08:12→17:48)
[2024-05-21] MEDS: Aspirin E.C. 81 MG Tablet PO ×2 (08:13→17:48)
[2024-05-21] MEDS: Folic Acid 1 MG Tablet PO (08:13)
[2024-05-21] MEDS: Cholecalciferol (VIT D3) 25 MCG TABLET (1,000 UNITS) 50 MCG PO (08:13)
[2024-05-21] MEDS: Calcium Carb/Vitamin D 1 TABLET Tablet PO (08:13)
[2024-05-21] MEDS: Cyanocobalamin 500 MCG Tablet 1000 MCG PO (08:14)
[2024-05-21] MEDS: Ceftriaxone 2 GM in 0.9% Normal Saline (50mL MB+) 50 ML IV (10:30)
[2024-05-21] MEDS: Pantoprazole Sodium 20 MG Tablet PO (10:33)
[2024-05-21] MEDS: Lisinopril 40 MG Tablet PO (10:34)
[2024-05-21 11:09] LABS: Bedside Glucose 113 mg/dL (74-106)
[2024-05-21] MEDS: Ferrous Sulfate 325 MG Tablet PO (11:26)
[2024-05-21 13:14] VITALS: BP 158/64; PULSE 62; RESP 16; TEMP 36.4; O2SAT 95
[2024-05-21 17:09] LABS: Bedside Glucose 138 mg/dL (74-106)
[2024-05-21] MEDS: cycloBENZAPRine HCl 10 MG Tablet PO (17:50)
[2024-05-21 21:11] VITALS: BP 149/65; PULSE 61
[2024-05-21] MEDS: Latanoprost 0.005% 1 Bottle 1 DRP OPHTHALMIC (21:13)
[2024-05-21] MEDS: Senna/Docusate Sodium 1 Tablet 2 TABLET PO (21:15)
[2024-05-21] MEDS: amLODIPine 5 MG Tablet PO (21:16)
[2024-05-22] MEDS: cycloBENZAPRine HCl 10 MG Tablet PO ×3 (03:08→21:18)
[2024-05-22] MEDS: oxyCODONE 5 MG Tablet PO ×2 (03:08→10:21)
[2024-05-22] MEDS: 0.9% Saline Lock 10 ML Syringe IV ×2 (05:02→19:44)
[2024-05-22] MEDS: Vancomycin HCl 750 MG in 0.9% Normal Saline (250mL Bag) 250 ML 250 MG IV ×2 (05:09→17:19)
[2024-05-22] MEDS: Acetaminophen 500 MG Tablet 1000 MG PO ×3 (05:55→21:18)
[2024-05-22 06:44] LABS: Bedside Glucose 143 mg/dL (74-106)
[2024-05-22] MEDS: Insulin Lispro 100 UNIT/ML INSULN.PEN 15 UNIT SC ×3 (08:25→17:36)
[2024-05-22] MEDS: Pantoprazole Sodium 20 MG Tablet PO (08:26)
[2024-05-22] MEDS: Lisinopril 40 MG Tablet PO (08:26)
[2024-05-22] MEDS: Calcium Carb/Vitamin D 1 TABLET Tablet PO (08:26)
[2024-05-22] MEDS: Cholecalciferol (VIT D3) 25 MCG TABLET (1,000 UNITS) 50 MCG PO (08:26)
[2024-05-22] MEDS: Aspirin E.C. 81 MG Tablet PO ×2 (08:27→17:37)
[2024-05-22] MEDS: Senna/Docusate Sodium 1 Tablet 2 TABLET PO ×2 (08:27→22:13)
[2024-05-22] MEDS: Folic Acid 1 MG Tablet PO (08:27)
[2024-05-22] MEDS: Cyanocobalamin 500 MCG Tablet 1000 MCG PO (08:28)
[2024-05-22] MEDS: Glucerna Shake 120 ML LIQUID PO ×3 (08:29→17:38)
[2024-05-22 08:35] VITALS: BP 163/64; PULSE 62
[2024-05-22 11:30] LABS: Bedside Glucose 161 mg/dL (74-106)
[2024-05-22] MEDS: 0.9 % NaCl (Sterile) Posiflush 10 mL IV ×2 (11:33→17:28)
[2024-05-22] MEDS: Ceftriaxone 2 GM in 0.9% Normal Saline (50mL MB+) 50 ML IV (11:34)
[2024-05-22] MEDS: Ferrous Sulfate 325 MG Tablet PO (11:35)
[2024-05-22] MEDS: Alteplase 2 MG/2 ML Vial IV ×2 (12:21)
[2024-05-22 15:34] VITALS: BP 165/66; PULSE 61; RESP 19; TEMP 36.5; O2SAT 96
[2024-05-22 16:43] LABS: Bedside Glucose 117 mg/dL (74-106)
[2024-05-22] MEDS: Latanoprost 0.005% 1 Bottle 1 DRP OPHTHALMIC (22:09)
[2024-05-22] MEDS: amLODIPine 5 MG Tablet PO (22:13)
[2024-05-22 22:17] VITALS: BP 149/75; PULSE 65
[2024-05-23] MEDS: oxyCODONE 5 MG Tablet PO (03:34)
[2024-05-23] MEDS: 0.9% Saline Lock 10 ML Syringe IV ×2 (05:12→19:31)
[2024-05-23] MEDS: Vancomycin HCl 750 MG in 0.9% Normal Saline (250mL Bag) 250 ML 250 MG IV ×2 (05:21→17:39)
[2024-05-23] MEDS: Acetaminophen 500 MG Tablet 1000 MG PO ×3 (06:02→20:24)
[2024-05-23 06:40] LABS: Bedside Glucose 151 mg/dL (74-106)
[2024-05-23] MEDS: Cholecalciferol (VIT D3) 25 MCG TABLET (1,000 UNITS) 50 MCG PO (08:08)
[2024-05-23] MEDS: Aspirin E.C. 81 MG Tablet PO ×2 (08:08→17:39)
[2024-05-23] MEDS: Calcium Carb/Vitamin D 1 TABLET Tablet PO (08:08)
[2024-05-23] MEDS: Insulin Lispro 100 UNIT/ML INSULN.PEN 15 UNIT SC ×3 (08:08→17:38)
[2024-05-23] MEDS: Cyanocobalamin 500 MCG Tablet 1000 MCG PO (08:08)
[2024-05-23] MEDS: Pantoprazole Sodium 20 MG Tablet PO (08:08)
[2024-05-23] MEDS: Folic Acid 1 MG Tablet PO (08:08)
[2024-05-23] MEDS: Lisinopril 40 MG Tablet PO (08:09)
[2024-05-23] MEDS: Glucerna Shake 120 ML LIQUID PO ×3 (08:10→17:40)
[2024-05-23 08:26] VITALS: BP 155/66; PULSE 61
[2024-05-23] MEDS: Ceftriaxone 2 GM in 0.9% Normal Saline (50mL MB+) 50 ML IV (09:49)
[2024-05-23] MEDS: 0.9 % NaCl (Sterile) Posiflush 10 mL IV ×2 (09:50→17:40)
[2024-05-23 11:53] LABS: Bedside Glucose 116 mg/dL (74-106)
[2024-05-23] MEDS: Ferrous Sulfate 325 MG Tablet PO (12:12)
[2024-05-23 13:59] VITALS: BP 143/67; PULSE 63; RESP 18; TEMP 36.9; O2SAT 96
[2024-05-23 16:35] LABS: Bedside Glucose 158 mg/dL (74-106)
[2024-05-23] MEDS: 0.9% Normal Saline (250mL Bag) 250 ML 15 ML IV (17:40)
[2024-05-23] MEDS: Latanoprost 0.005% 1 Bottle 1 DRP OPHTHALMIC (20:20)
[2024-05-23] MEDS: amLODIPine 5 MG Tablet PO (20:23)
[2024-05-23] MEDS: Senna/Docusate Sodium 1 Tablet 2 TABLET PO (20:23)
[2024-05-23 20:26] VITALS: BP 168/67; PULSE 64
[2024-05-24] MEDS: cycloBENZAPRine HCl 10 MG Tablet PO ×2 (03:19→17:26)
[2024-05-24] MEDS: 0.9% Saline Lock 10 ML Syringe IV ×2 (04:53→19:06)
[2024-05-24] MEDS: Vancomycin HCl 750 MG in 0.9% Normal Saline (250mL Bag) 250 ML 250 MG IV ×2 (05:03→19:03)
[2024-05-24] MEDS: Acetaminophen 500 MG Tablet 1000 MG PO ×3 (05:05→20:41)
[2024-05-24] MEDS: oxyCODONE 5 MG Tablet PO (06:22)
[2024-05-24 07:22] LABS: Bedside Glucose 148 mg/dL (74-106)
[2024-05-24] MEDS: Folic Acid 1 MG Tablet PO (08:51)
[2024-05-24] MEDS: Cyanocobalamin 500 MCG Tablet 1000 MCG PO (08:51)
[2024-05-24] MEDS: Insulin Lispro 100 UNIT/ML INSULN.PEN 15 UNIT SC ×3 (08:51→17:52)
[2024-05-24] MEDS: Lisinopril 40 MG Tablet PO (08:51)
[2024-05-24] MEDS: Pantoprazole Sodium 20 MG Tablet PO (08:51)
[2024-05-24] MEDS: Calcium Carb/Vitamin D 1 TABLET Tablet PO (08:52)
[2024-05-24] MEDS: Cholecalciferol (VIT D3) 25 MCG TABLET (1,000 UNITS) 50 MCG PO (08:52)
[2024-05-24] MEDS: Aspirin E.C. 81 MG Tablet PO ×2 (08:52→16:22)
[2024-05-24] MEDS: 0.9 % NaCl (Sterile) Posiflush 10 mL IV (09:00)
[2024-05-24] MEDS: Glucerna Shake 120 ML LIQUID PO ×3 (09:02→16:23)
[2024-05-24] MEDS: Ceftriaxone 2 GM in 0.9% Normal Saline (50mL MB+) 50 ML IV (09:03)
[2024-05-24 12:26] LABS: Bedside Glucose 106 mg/dL (74-106)
[2024-05-24] MEDS: Ferrous Sulfate 325 MG Tablet PO (13:03)
[2024-05-24 14:25] VITALS: BP 165/70; PULSE 62; RESP 14; TEMP 36.3; O2SAT 95
[2024-05-24 16:51] LABS: Bedside Glucose 105 mg/dL (74-106)
[2024-05-24] MEDS: Vancomycin Trough/Random Due 1 LAB MC (17:52)
--- NOTE | 2024-05-24 20:27 | PN.TCU_ITS ---
Subjective Subjective Resident seen, examined for regulatory visit. She is doing well, no new problems, concerns, issues, complaints. She understands once she is finished with iv antibiotics, she will need to have explant antibiotic spacer, and left total knee replacement. I let her know her surgical cultures are negative to date, and that is not unusual for a patient in her condition. Objective Data Objective Data Vital Signs: Vital Signs Temp Pulse Resp BP Pulse Ox O2 Del Method 97.4 F L 62 14 165/70 H 95 Room Air 05/24/24 14:25 05/24/24 14:25 05/24/24 14:25 05/24/24 14:25 05/24/24 14:25 05/24/24 14:25 Oxygen Delivery Method Room Air Weight: 90.718 kg Body Mass Index (BMI) 32.3 Intake & Output: Intake and Output for Last 24 Hours 05/22/24 05/23/24 05/24/24 23:59 23:59 23:59 Intake Total 1180 / 1180 1327.5 / 1327.5 795 / 795 Balance 1180 / 1180 1327.5 / 1327.5 795 / 795 Lab / Micro Data 05/21/24 05:33 05/21/24 05:33 Labs: Laboratory Results - last 24 hr 05/24/24 05:58: POC Glucose 148 H 05/24/24 11:29: POC Glucose 106 05/24/24 16:17: POC Glucose 105 05/24/24 17:15: Vancomycin Trough 16.0 H Micro: Microbiology 05/06/24 05:52 Nasal Secretion SARS-CoV-2 Antigen (Rapid) - Final Physical Exam Const alert General Appearance: cooperative HEENT normocephalic Eyes PERRL and EOMs intact bilaterally Neck supple, no JVD and no carotid bruits Resp normal respiratory effort, normal air movement and clear to auscultation bilaterally Cardio regular rate and regular rhythm GI normal to inspection, nondistended, normoactive bowel sounds, non-tender and non-distended Bladder / Kidney Exam: catheter in place urethral Extremity normal capillary refill Extremity Narrative: Left lower extremity immobilizer. Right upper extremity PICC line. 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 Casillas, postoperative course complicated by urinary retention requiring hammer catheter, admitted to TCU with debility, here for rehabilitation, strengthening, intravenous antibiotics, prior to discharge home with . * Debility - PT/OT. * Dysphagia - ST. * Pain - Tylenol 1000mg q8, Oxycodone 5-10mg q4 prn pain (4-10). * Bowel - senna/colace 2 tablets bid prn. * Adult immunization - Administer pneumonia vaccine, covid vaccine, flu vaccine as appropriate. * DVT prophylaxis - Aspirin 81mg bidcm thru 05/30/2024. * Hypertension - Losartan 100mg daily, Amlodipine 10mg qhs. * Calcium deficiency - Calcium D 1 tablet daily. 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 Bowden to follow. * Vitamin D deficiency - D3 50mcg daily. * Vitamin B12 deficiency - B12 1000mcg daily. * Iron deficiency anemia - Ferrous sulfate 325mg daily. * Folate deficiency - Folic acid 1mg daily. * Diabetes Mellitus II - Lispro 25 units sc tidac. * Glaucoma - Latanoprost 1gtt ou qhs. * GERD - Pantoprazole 20mg daily. * Muscle spasm - Flexeril 10mg tid prn.
--- NOTE | 2024-05-24 20:34 | PCM.RX.CS ---
Consult Antibiotic Management Pharmacy has been consulted to manage selected antibiotic: Vancomycin Type of Intervention Type of Consult: Follow-up Labs Labs: Sodium 138 mmol/L (136-145) 05/21/24 05:33 Potassium 3.9 mmol/L (3.5-5.1) 05/21/24 05:33 Chloride 106 mmol/L (98-107) 05/21/24 05:33 Carbon Dioxide 25.0 mmol/L (21.0-32.0) 05/21/24 05:33 Anion Gap 7 (5-15) 05/21/24 05:33 BUN 17 mg/dL (7-18) 05/21/24 05:33 Creatinine 0.75 mg/dL (0.55-1.02) 05/21/24 05:33 Est GFR (MDRD) Af Amer 96 mL/min (>60) 05/21/24 05:33 Est GFR (MDRD) Non-Af 79 mL/min (>60) 05/21/24 05:33 BUN/Creatinine Ratio 22.6 RATIO (10-20) H 05/21/24 05:33 Glucose 145 mg/dL (74-106) H 05/21/24 05:33 Vancomycin Trough 16.0 ug/mL (5.0-15.0) H 05/24/24 17:15 Random Vancomycin 15.2 ug/mL (0.0-15.0) H 05/08/24 15:34 Microbiology Microbiology: Microbiology 05/06/24 05:52 Nasal Secretion SARS-CoV-2 Antigen (Rapid) - Final Pharmacy Plan for Drug Dosing Pharmacy Plan for Drug Dosing: VANCOMYCIN LEVEL RECEIVED Current Vancomycin Dose: 750mg q12 Number of Doses Received: MANY Vancomycin Level: 16 MG/DL Hours Since Last Dose: 12 Renal Function: SCR 0.75 (0/14), CRCL 65 ML/MIN Renal Function Trend: STABLE Vancomycin Plan/Comments: 12 HOUR TROUGH IS THERAPEUTIC (GOAL 15-20). WILL CONTINUE CURRENT DOSING AND GET A TROUGH IN 4 DAYS Pending Level: 05/28/24 @ 1730 Pharmacy Service will continue to monitor and adjust dosing as required.
[2024-05-24 20:40] VITALS: BP 150/73; PULSE 68; O2SAT 96
[2024-05-24] MEDS: Latanoprost 0.005% 1 Bottle 1 DRP OPHTHALMIC (20:42)
[2024-05-24] MEDS: amLODIPine 10 MG Tablet PO (21:54)
[2024-05-25] MEDS: oxyCODONE 5 MG Tablet PO (02:33)
[2024-05-25] MEDS: Acetaminophen 500 MG Tablet 1000 MG PO ×3 (05:53→20:46)
[2024-05-25] MEDS: Vancomycin HCl 750 MG in 0.9% Normal Saline (250mL Bag) 250 ML 250 MG IV ×2 (05:54→18:16)
[2024-05-25] MEDS: 0.9% Saline Lock 10 ML Syringe IV ×4 (06:03→19:35)
[2024-05-25 06:21] VITALS: O2SAT 94
[2024-05-25 06:47] LABS: Bedside Glucose 159 mg/dL (74-106)
[2024-05-25] MEDS: Insulin Lispro 100 UNIT/ML INSULN.PEN 15 UNIT SC ×3 (07:35→18:16)
[2024-05-25] MEDS: Aspirin E.C. 81 MG Tablet PO ×2 (07:37→16:54)
[2024-05-25] MEDS: Glucerna Shake 120 ML LIQUID PO ×3 (07:37→16:57)
[2024-05-25] MEDS: Folic Acid 1 MG Tablet PO (07:38)
[2024-05-25] MEDS: Calcium Carb/Vitamin D 1 TABLET Tablet PO (07:38)
[2024-05-25] MEDS: Cyanocobalamin 500 MCG Tablet 1000 MCG PO (07:38)
[2024-05-25] MEDS: Cholecalciferol (VIT D3) 25 MCG TABLET (1,000 UNITS) 50 MCG PO (07:39)
[2024-05-25 09:00] VITALS: BMI 31.6
[2024-05-25 10:00] VITALS: BP 159/60; PULSE 61; RESP 16; TEMP 36.6; O2SAT 94
[2024-05-25] MEDS: Ceftriaxone 2 GM in 0.9% Normal Saline (50mL MB+) 50 ML IV (10:02)
[2024-05-25] MEDS: Losartan Potassium 100 MG Tablet PO (10:02)
[2024-05-25] MEDS: amLODIPine 10 MG Tablet PO (10:03)
[2024-05-25] MEDS: Pantoprazole Sodium 20 MG Tablet PO (10:03)
[2024-05-25 11:30] LABS: Bedside Glucose 143 mg/dL (74-106)
[2024-05-25] MEDS: Ferrous Sulfate 325 MG Tablet PO (12:10)
[2024-05-25 16:26] LABS: Bedside Glucose 130 mg/dL (74-106)
[2024-05-25] MEDS: COVID VAC 24-25 (12UP)(MODERNA)/PF 50 MCG/0.5 ML SYRINGE IM (16:55)
[2024-05-25] MEDS: Senna/Docusate Sodium 1 Tablet 2 TABLET PO (20:44)
[2024-05-25] MEDS: Latanoprost 0.005% 1 Bottle 1 DRP OPHTHALMIC (20:46)
[2024-05-25] MEDS: cycloBENZAPRine HCl 10 MG Tablet PO (22:17)
[2024-05-26] MEDS: Acetaminophen 500 MG Tablet 1000 MG PO ×2 (05:08→21:50)
[2024-05-26] MEDS: 0.9% Saline Lock 10 ML Syringe IV ×2 (05:09→19:34)
[2024-05-26] MEDS: Vancomycin HCl 750 MG in 0.9% Normal Saline (250mL Bag) 250 ML 250 MG IV ×2 (05:15→18:19)
[2024-05-26] MEDS: oxyCODONE 5 MG Tablet PO ×3 (05:18→21:54)
[2024-05-26 06:39] LABS: Bedside Glucose 139 mg/dL (74-106)
[2024-05-26] MEDS: Calcium Carb/Vitamin D 1 TABLET Tablet PO (07:58)
[2024-05-26] MEDS: Folic Acid 1 MG Tablet PO (07:58)
[2024-05-26] MEDS: Aspirin E.C. 81 MG Tablet PO ×2 (07:58→16:43)
[2024-05-26] MEDS: Insulin Lispro 100 UNIT/ML INSULN.PEN 15 UNIT SC ×2 (07:58→17:41)
[2024-05-26] MEDS: Cholecalciferol (VIT D3) 25 MCG TABLET (1,000 UNITS) 50 MCG PO (07:59)
[2024-05-26] MEDS: Losartan Potassium 100 MG Tablet PO (07:59)
[2024-05-26] MEDS: Cyanocobalamin 500 MCG Tablet 1000 MCG PO (07:59)
[2024-05-26] MEDS: Pantoprazole Sodium 20 MG Tablet PO (07:59)
[2024-05-26] MEDS: Senna/Docusate Sodium 1 Tablet 2 TABLET PO ×2 (08:00→21:51)
[2024-05-26] MEDS: Glucerna Shake 120 ML LIQUID PO ×2 (08:02→16:44)
[2024-05-26 08:09] VITALS: BP 153/63; PULSE 70
[2024-05-26] MEDS: Ceftriaxone 2 GM in 0.9% Normal Saline (50mL MB+) 50 ML IV (10:31)
[2024-05-26] MEDS: 0.9% Normal Saline (250mL Bag) 250 ML 15 ML IV (10:35)
[2024-05-26 11:17] VITALS: BP 148/67; PULSE 66; RESP 18; TEMP 36.2; O2SAT 97
--- NOTE | 2024-05-26 12:31 | NURSING ---
Pt off unit on a GREG with
--- NOTE | 2024-05-26 13:20 | NURSING ---
Pt returned from GREG per pt took Tylenol while on GREG
[2024-05-26] MEDS: Ferrous Sulfate 325 MG Tablet PO (14:56)
[2024-05-26 16:29] LABS: Bedside Glucose 132 mg/dL (74-106)
[2024-05-26] MEDS: cycloBENZAPRine HCl 10 MG Tablet PO ×2 (16:44→19:43)
[2024-05-26] MEDS: 0.9 % NaCl (Sterile) Posiflush 10 mL IV (18:18)
[2024-05-26 20:00] VITALS: PULSE 74; RESP 16; O2SAT 95
[2024-05-26 21:46] VITALS: BP 169/64; PULSE 74
[2024-05-26] MEDS: Latanoprost 0.005% 1 Bottle 1 DRP OPHTHALMIC (21:50)
[2024-05-26] MEDS: amLODIPine 10 MG Tablet PO (21:52)
[2024-05-27] MEDS: 0.9% Saline Lock 10 ML Syringe IV ×4 (05:02→21:31)
[2024-05-27] MEDS: Vancomycin HCl 750 MG in 0.9% Normal Saline (250mL Bag) 250 ML 250 MG IV ×2 (05:08→17:40)
[2024-05-27] MEDS: Acetaminophen 500 MG Tablet 1000 MG PO ×3 (06:14→21:29)
[2024-05-27 06:23] LABS: Bedside Glucose 135 mg/dL (74-106)
[2024-05-27 08:51] VITALS: BP 137/60; PULSE 63; RESP 16; TEMP 36.2; O2SAT 96
[2024-05-27] MEDS: Insulin Lispro 100 UNIT/ML INSULN.PEN 15 UNIT SC ×3 (08:54→17:38)
[2024-05-27] MEDS: Glucerna Shake 120 ML LIQUID PO ×3 (08:54→17:39)
[2024-05-27] MEDS: Pantoprazole Sodium 20 MG Tablet PO (08:57)
[2024-05-27] MEDS: Calcium Carb/Vitamin D 1 TABLET Tablet PO (08:57)
[2024-05-27] MEDS: Senna/Docusate Sodium 1 Tablet 2 TABLET PO ×2 (08:57→21:30)
[2024-05-27] MEDS: Losartan Potassium 100 MG Tablet PO (08:57)
[2024-05-27] MEDS: Aspirin E.C. 81 MG Tablet PO ×2 (08:58→17:39)
[2024-05-27] MEDS: Cyanocobalamin 500 MCG Tablet 1000 MCG PO (08:58)
[2024-05-27] MEDS: Folic Acid 1 MG Tablet PO (08:58)
[2024-05-27] MEDS: Cholecalciferol (VIT D3) 25 MCG TABLET (1,000 UNITS) 50 MCG PO (08:58)
[2024-05-27] MEDS: Ceftriaxone 2 GM in 0.9% Normal Saline (50mL MB+) 50 ML IV (09:03)
[2024-05-27 10:00] VITALS: RESP 16
[2024-05-27 11:52] LABS: Bedside Glucose 144 mg/dL (74-106)
[2024-05-27] MEDS: Ferrous Sulfate 325 MG Tablet PO (12:07)
[2024-05-27] MEDS: cycloBENZAPRine HCl 10 MG Tablet PO (15:51)
[2024-05-27 16:37] LABS: Bedside Glucose 130 mg/dL (74-106)
[2024-05-27] MEDS: Latanoprost 0.005% 1 Bottle 1 DRP OPHTHALMIC (21:28)
[2024-05-27] MEDS: amLODIPine 10 MG Tablet PO (21:30)
[2024-05-27] MEDS: oxyCODONE 5 MG Tablet PO (21:52)
[2024-05-27 21:55] VITALS: BP 161/67; PULSE 63
[2024-05-28] MEDS: 0.9% Saline Lock 10 ML Syringe IV ×2 (05:03→20:00)
[2024-05-28] MEDS: Acetaminophen 500 MG Tablet 1000 MG PO ×3 (05:07→23:36)
[2024-05-28] MEDS: Vancomycin HCl 750 MG in 0.9% Normal Saline (250mL Bag) 250 ML 250 MG IV ×2 (05:08→18:29)
[2024-05-28] MEDS: cycloBENZAPRine HCl 10 MG Tablet PO ×2 (05:10→23:39)
[2024-05-28 06:22] LABS: Absolute Lymphocyte Count 2.17 X10^3/uL (0.83-4.51); Basophil# 0.05 X10^3/uL; Basophil% 0.8 % (0-1); Eosinophil# 0.27 X10^3/uL; Eosinophils% 4.2 % (0-5); Hematocrit 29.7 % (37-47); Lymphocyte # 2.17 X10^3/ul (0.83-4.51); Lymphocyte % 33.5 % (19-41); Mean Corp Hgb Conc 30.3 g/dL (32-36); Mean Corpuscular Hgb 27.8 pg (27.0-32.0); Mean Corpuscular Volume 91.7 fL (81-99); Mean Platelet Vol. 10.3 fl (6.2-12.0); Monocyte# 0.94 X10^3/uL; Monocyte% 14.5 % (0-10); NRBC Flagged by Analyzer 0 % (0-5); Neutrophil % 46.2 % (47-70); Platelet Count 218 K/mm3 (150-450); RBC Distribution Width CV 15.2 % (11.6-14.6); RBC Distribution Width SD 50.6 fl (35.1-43.9); Red Blood Count 3.24 M/mm3 (4.2-5.4); White Blood Count 6.5 K/mm3 (4.4-11.0)
[2024-05-28 06:37] LABS: Bedside Glucose 144 mg/dL (74-106)
[2024-05-28 07:08] LABS: Anion Gap 9 (5-15); BUN 16 mg/dL (7-18); BUN/Creat Ratio 21.2 RATIO (10-20); Chloride 106 mmol/L (98-107); Creatinine, Serum 0.76 mg/dL (0.55-1.02); EST Glomerular Filtration Rate 79 mL/min (>60); Est Glom Filt Rate - Afr Amer 95 mL/min (>60); Estimated Creatinine Clearance 65.13 ml/min; Glucose 151 mg/dL (74-106); Potassium 4.1 mmol/L (3.5-5.1); Sodium Level 140 mmol/L (136-145)
[2024-05-28] MEDS: Cholecalciferol (VIT D3) 25 MCG TABLET (1,000 UNITS) 50 MCG PO (08:27)
[2024-05-28] MEDS: Losartan Potassium 100 MG Tablet PO (08:27)
[2024-05-28] MEDS: Calcium Carb/Vitamin D 1 TABLET Tablet PO (08:27)
[2024-05-28] MEDS: Insulin Lispro 100 UNIT/ML INSULN.PEN 15 UNIT SC ×3 (08:27→17:47)
[2024-05-28] MEDS: Folic Acid 1 MG Tablet PO (08:27)
[2024-05-28] MEDS: Pantoprazole Sodium 20 MG Tablet PO (08:28)
[2024-05-28] MEDS: Cyanocobalamin 500 MCG Tablet 1000 MCG PO (08:28)
[2024-05-28] MEDS: Aspirin E.C. 81 MG Tablet PO ×2 (08:28→17:48)
[2024-05-28 08:30] VITALS: BP 154/61; PULSE 69
[2024-05-28] MEDS: hydrALAZINE 10 MG Tablet PO ×3 (08:30→23:35)
[2024-05-28] MEDS: Glucerna Shake 120 ML LIQUID PO ×3 (08:34→17:48)
[2024-05-28 08:35] LABS: Erythrocyte Sedimentation Rate 23 mm/hr (0-30)
[2024-05-28] MEDS: Ceftriaxone 2 GM in 0.9% Normal Saline (50mL MB+) 50 ML IV (09:58)
[2024-05-28] MEDS: 0.9 % NaCl (Sterile) Posiflush 10 mL IV ×3 (09:59→18:30)
[2024-05-28 11:45] LABS: Bedside Glucose 160 mg/dL (74-106)
[2024-05-28] MEDS: Ferrous Sulfate 325 MG Tablet PO (12:14)
[2024-05-28 13:15] VITALS: PULSE 65; RESP 18; TEMP 36.4; O2SAT 98
[2024-05-28 14:52] VITALS: BP 146/61; PULSE 65
[2024-05-28 14:59] VITALS: BP 146/61
[2024-05-28 17:08] LABS: Bedside Glucose 135 mg/dL (74-106)
[2024-05-28] MEDS: Vancomycin Trough/Random Due 1 LAB MC (17:47)
[2024-05-28 17:54] LABS: Vancomycin, Trough Level 15.6 ug/mL (5.0-15.0)
--- NOTE | 2024-05-28 18:03 | PHA.PHARE_ITS ---
Consult Antibiotic Management Pharmacy has been consulted to manage selected antibiotic: Vancomycin Type of Intervention Type of Consult: Follow-up Labs Labs: Sodium 140 mmol/L (136-145) 05/28/24 05:27 Potassium 4.1 mmol/L (3.5-5.1) 05/28/24 05:27 Chloride 106 mmol/L (98-107) 05/28/24 05:27 Carbon Dioxide 25.0 mmol/L (21.0-32.0) 05/28/24 05:27 Anion Gap 9 (5-15) 05/28/24 05:27 BUN 16 mg/dL (7-18) 05/28/24 05:27 Creatinine 0.76 mg/dL (0.55-1.02) 05/28/24 05:27 Est GFR (MDRD) Af Amer 95 mL/min (>60) 05/28/24 05:27 Est GFR (MDRD) Non-Af 79 mL/min (>60) 05/28/24 05:27 BUN/Creatinine Ratio 21.2 RATIO (10-20) H 05/28/24 05:27 Glucose 151 mg/dL (74-106) H 05/28/24 05:27 Vancomycin Trough 15.6 ug/mL (5.0-15.0) H 05/28/24 17:31 Random Vancomycin 15.2 ug/mL (0.0-15.0) H 05/08/24 15:34 Microbiology Microbiology: Microbiology 05/06/24 05:52 Nasal Secretion SARS-CoV-2 Antigen (Rapid) - Final Pharmacy Plan for Drug Dosing Pharmacy Plan for Drug Dosing: VANCOMYCIN LEVEL RECEIVED Current Vancomycin Dose: 750MG Q12 Number of Doses Received: >40 Vancomycin Level: 15.6 MG/DL Hours Since Last Dose: 12 Renal Function: SCR 0.76 MG/DL, CRCL 65 ML/MIN Renal Function Trend: STABLE Vancomycin Plan/Comments: 12 hour trough is therapeutic at 15.6 MG/DL (goal 15- 20). Will continue current dosing at this time. Resident has had 4 troughs in range, will push out next trough to 7 days. Stop date 06/08/24 Pending Level: 06/04/24 @ 1730 Pharmacy Service will continue to monitor and adjust dosing as required.
[2024-05-28] MEDS: 0.9% Normal Saline (250mL Bag) 250 ML 15 ML IV (18:29)
[2024-05-28 23:35] VITALS: BP 163/67; PULSE 71
[2024-05-28] MEDS: amLODIPine 10 MG Tablet PO (23:35)
[2024-05-28] MEDS: Senna/Docusate Sodium 1 Tablet 2 TABLET PO (23:36)
[2024-05-28] MEDS: Latanoprost 0.005% 1 Bottle 1 DRP OPHTHALMIC (23:37)
[2024-05-29] MEDS: 0.9% Saline Lock 10 ML Syringe IV ×2 (05:21→22:28)
[2024-05-29] MEDS: Vancomycin HCl 750 MG in 0.9% Normal Saline (250mL Bag) 250 ML 250 MG IV ×2 (05:27→18:32)
[2024-05-29] MEDS: Acetaminophen 500 MG Tablet 1000 MG PO ×3 (05:31→22:26)
[2024-05-29 05:32] VITALS: BP 159/56; PULSE 60
[2024-05-29] MEDS: hydrALAZINE 10 MG Tablet PO ×3 (05:32→22:26)
[2024-05-29 06:44] LABS: Bedside Glucose 146 mg/dL (74-106)
[2024-05-29 08:17] VITALS: BP 153/60; PULSE 65; RESP 16; TEMP 36.7; O2SAT 95
[2024-05-29] MEDS: Insulin Lispro 100 UNIT/ML INSULN.PEN 15 UNIT SC ×3 (08:21→18:20)
[2024-05-29] MEDS: Aspirin E.C. 81 MG Tablet PO ×2 (08:22→18:20)
[2024-05-29] MEDS: Folic Acid 1 MG Tablet PO (08:22)
[2024-05-29] MEDS: Calcium Carb/Vitamin D 1 TABLET Tablet PO (08:22)
[2024-05-29] MEDS: Cyanocobalamin 500 MCG Tablet 1000 MCG PO (08:23)
[2024-05-29] MEDS: Losartan Potassium 100 MG Tablet PO (08:23)
[2024-05-29] MEDS: Cholecalciferol (VIT D3) 25 MCG TABLET (1,000 UNITS) 50 MCG PO (08:23)
[2024-05-29] MEDS: Pantoprazole Sodium 20 MG Tablet PO (08:23)
[2024-05-29] MEDS: Glucerna Shake 120 ML LIQUID PO ×3 (08:28→18:20)
[2024-05-29] MEDS: Ceftriaxone 2 GM in 0.9% Normal Saline (50mL MB+) 50 ML IV (11:09)
[2024-05-29] MEDS: 0.9 % NaCl (Sterile) Posiflush 10 mL IV ×2 (11:10→18:33)
[2024-05-29 11:26] LABS: Bedside Glucose 184 mg/dL (74-106)
[2024-05-29] MEDS: Ferrous Sulfate 325 MG Tablet PO (12:19)
[2024-05-29 14:27] VITALS: BP 162/60; PULSE 77
[2024-05-29 16:36] LABS: Bedside Glucose 153 mg/dL (74-106)
[2024-05-29] MEDS: 0.9% Normal Saline (250mL Bag) 250 ML 15 ML IV (18:33)
[2024-05-29] MEDS: Latanoprost 0.005% 1 Bottle 1 DRP OPHTHALMIC (22:24)
[2024-05-29 22:25] VITALS: PULSE 65; O2SAT 93
[2024-05-29 22:26] VITALS: BP 161/64; PULSE 65
[2024-05-29] MEDS: amLODIPine 10 MG Tablet PO (22:26)
[2024-05-30] VITALS (7 sets, daily range): BP systolic 139–162; BP diastolic 53–72; PULSE 63–66; RESP 18; TEMP 36.5; O2SAT 94–95
[2024-05-30] MEDS: cycloBENZAPRine HCl 10 MG Tablet PO ×2 (00:36→10:48)
[2024-05-30] MEDS: oxyCODONE 5 MG Tablet PO (03:36)
[2024-05-30] MEDS: hydrALAZINE 10 MG Tablet PO ×3 (06:29→22:26)
[2024-05-30] MEDS: Acetaminophen 500 MG Tablet 1000 MG PO ×3 (06:29→22:25)
[2024-05-30] MEDS: Vancomycin HCl 750 MG in 0.9% Normal Saline (250mL Bag) 250 ML 250 MG IV ×2 (06:30→18:11)
[2024-05-30] MEDS: 0.9% Saline Lock 10 ML Syringe IV ×3 (06:33→22:26)
[2024-05-30 07:10] LABS: Bedside Glucose 145 mg/dL (74-106)
[2024-05-30] MEDS: Insulin Lispro 100 UNIT/ML INSULN.PEN 15 UNIT SC ×3 (08:48→18:00)
[2024-05-30] MEDS: Glucerna Shake 120 ML LIQUID PO ×3 (08:49→18:00)
[2024-05-30] MEDS: Aspirin E.C. 81 MG Tablet PO ×2 (08:49→18:01)
[2024-05-30] MEDS: Folic Acid 1 MG Tablet PO (08:50)
[2024-05-30] MEDS: Losartan Potassium 100 MG Tablet PO (08:50)
[2024-05-30] MEDS: Calcium Carb/Vitamin D 1 TABLET Tablet PO (08:50)
[2024-05-30] MEDS: Cholecalciferol (VIT D3) 25 MCG TABLET (1,000 UNITS) 50 MCG PO (08:50)
[2024-05-30] MEDS: Cyanocobalamin 500 MCG Tablet 1000 MCG PO (08:50)
[2024-05-30] MEDS: Pantoprazole Sodium 20 MG Tablet PO (08:51)
[2024-05-30] MEDS: 0.9 % NaCl (Sterile) Posiflush 10 mL IV (08:58)
[2024-05-30] MEDS: Ceftriaxone 2 GM in 0.9% Normal Saline (50mL MB+) 50 ML IV (09:03)
[2024-05-30 11:29] LABS: Bedside Glucose 162 mg/dL (74-106)
[2024-05-30] MEDS: Ferrous Sulfate 325 MG Tablet PO (12:27)
[2024-05-30 17:03] LABS: Bedside Glucose 173 mg/dL (74-106)
[2024-05-30] MEDS: 0.9% Normal Saline (250mL Bag) 250 ML 15 ML IV (18:12)
[2024-05-30] MEDS: Latanoprost 0.005% 1 Bottle 1 DRP OPHTHALMIC (22:24)
[2024-05-30] MEDS: amLODIPine 10 MG Tablet PO (22:26)
[2024-05-31] VITALS (7 sets, daily range): BP systolic 148–170; BP diastolic 61–76; PULSE 65–90; RESP 18; TEMP 36.7; O2SAT 98
[2024-05-31] MEDS: hydrALAZINE 10 MG Tablet PO ×3 (05:58→22:54)
[2024-05-31] MEDS: Acetaminophen 500 MG Tablet 1000 MG PO ×3 (05:58→22:56)
[2024-05-31] MEDS: Vancomycin HCl 750 MG in 0.9% Normal Saline (250mL Bag) 250 ML 250 MG IV ×2 (05:58→17:51)
[2024-05-31] MEDS: 0.9% Saline Lock 10 ML Syringe IV (05:59)
[2024-05-31 06:48] LABS: Bedside Glucose 158 mg/dL (74-106)
[2024-05-31] MEDS: Glucerna Shake 120 ML LIQUID PO ×3 (08:03→17:50)
[2024-05-31] MEDS: Insulin Lispro 100 UNIT/ML INSULN.PEN 15 UNIT SC ×2 (08:03→12:07)
[2024-05-31] MEDS: Losartan Potassium 100 MG Tablet PO (08:04)
[2024-05-31] MEDS: Cholecalciferol (VIT D3) 25 MCG TABLET (1,000 UNITS) 50 MCG PO (08:04)
[2024-05-31] MEDS: Calcium Carb/Vitamin D 1 TABLET Tablet PO (08:04)
[2024-05-31] MEDS: cycloBENZAPRine HCl 10 MG Tablet PO (08:04)
[2024-05-31] MEDS: Folic Acid 1 MG Tablet PO (08:04)
[2024-05-31] MEDS: Pantoprazole Sodium 20 MG Tablet PO (08:04)
[2024-05-31] MEDS: Cyanocobalamin 500 MCG Tablet 1000 MCG PO (08:57)
[2024-05-31] MEDS: Ceftriaxone 2 GM in 0.9% Normal Saline (50mL MB+) 50 ML IV (10:25)
[2024-05-31] MEDS: 0.9 % NaCl (Sterile) Posiflush 10 mL IV ×2 (10:25→17:50)
[2024-05-31 11:14] LABS: Bedside Glucose 168 mg/dL (74-106)
[2024-05-31] MEDS: Ferrous Sulfate 325 MG Tablet PO (12:07)
[2024-05-31 17:12] LABS: Bedside Glucose 102 mg/dL (74-106)
[2024-05-31] MEDS: Latanoprost 0.005% 1 Bottle 1 DRP OPHTHALMIC (22:52)
[2024-05-31] MEDS: amLODIPine 10 MG Tablet PO (22:55)
[2024-06-01] MEDS: 0.9% Saline Lock 10 ML Syringe IV ×3 (05:15→17:43)
[2024-06-01] MEDS: Vancomycin HCl 750 MG in 0.9% Normal Saline (250mL Bag) 250 ML 250 MG IV ×2 (05:22→17:43)
[2024-06-01] MEDS: Acetaminophen 500 MG Tablet 1000 MG PO ×3 (05:23→21:25)
[2024-06-01 05:24] VITALS: BP 158/63; PULSE 69
[2024-06-01] MEDS: hydrALAZINE 10 MG Tablet PO ×3 (05:24→21:25)
[2024-06-01 05:27] VITALS: BP 158/63; PULSE 69
[2024-06-01 06:25] LABS: Bedside Glucose 154 mg/dL (74-106)
[2024-06-01 08:32] VITALS: BP 158/68; PULSE 78; RESP 16; TEMP 36.3; O2SAT 95
[2024-06-01] MEDS: Glucerna Shake 120 ML LIQUID PO ×3 (08:35→17:42)
[2024-06-01] MEDS: Insulin Lispro 100 UNIT/ML INSULN.PEN 15 UNIT SC ×3 (08:35→17:42)
[2024-06-01] MEDS: Cholecalciferol (VIT D3) 25 MCG TABLET (1,000 UNITS) 50 MCG PO (08:36)
[2024-06-01] MEDS: Cyanocobalamin 500 MCG Tablet 1000 MCG PO (08:36)
[2024-06-01] MEDS: Folic Acid 1 MG Tablet PO (08:36)
[2024-06-01] MEDS: Calcium Carb/Vitamin D 1 TABLET Tablet PO (08:36)
[2024-06-01] MEDS: Pantoprazole Sodium 20 MG Tablet PO (08:37)
[2024-06-01] MEDS: Losartan Potassium 100 MG Tablet PO (08:37)
[2024-06-01] MEDS: Ceftriaxone 2 GM in 0.9% Normal Saline (50mL MB+) 50 ML IV (10:20)
--- NOTE | 2024-06-01 11:38 | CASEMGMT ---
Social Work SW met with pt and at bedside to finalize DC plans. Pt and IDT agree no further therapy or nursing is needed at DC. Pt's IV ATBs are completed 06/08. Pt to DC home with 06/09. No DME needs. to transport. Plan: DC home with 06/09, no needs Marcia Ayoub, [employer]
[2024-06-01 11:40] LABS: Bedside Glucose 197 mg/dL (74-106)
--- NOTE | 2024-06-01 11:40 | PCM.PN.ID ---
Physical Exam Narrative Feeling ok, knee healing well, no fever, no n/v, mild diarrhea sometimes. Const alert and no apparent distress General Appearance: cooperative Resp normal air movement and clear to auscultation bilaterally Cardio regular rate and regular rhythm GI soft to palpation, non-tender and non-distended Extremity General Extremity: edema Skin Skin Narrative: L knee incision healed well, mild surrounding redness Neuro CN's II-XII intact bilaterally ID ID: Route of nutrition/ use of supplements: [] Nutritional Intake: [] IV Site: [] Morrell Catheter: [] Assessment & Plan Assessment/Plan (1) Infection of prosthetic left knee joint: PLAN: Now s/p 04/27/24 I&D and spacer placement by Dr. Casillas at [facility]. Reviewed [facility] records, surg cx remain neg. On 6 week course po vanc/ceftriaxone via picc, stop date planned for 06/08/24. ESR has normalized. Recommend starting Hiprex 1gm bid for [facility] uti prophylaxis at discharge. Will follow
[2024-06-01] MEDS: Ferrous Sulfate 325 MG Tablet PO (12:08)
[2024-06-01 12:13] VITALS: BMI 31.5
[2024-06-01 14:03] VITALS: BP 163/64; PULSE 69
[2024-06-01 17:36] LABS: Bedside Glucose 117 mg/dL (74-106)
--- NOTE | 2024-06-01 20:19 | DS.PCM_ITS ---
Providers Date of Admission: 04/30/24 Primary Care Physician: Dr. Luther Torre MD Consultations 04/30/24 14:55 Consult: Infectious Disease Routine Consulting Provider: Jc Bowden Reason for Consult: L prosthetic knee infection, s/p revision. EMERGENT Consult: No Notified: Yes Date Notified: 04/30/24 Time Notified: 14:55 Method of Notification: Text Consult: Urology Routine Consulting Provider: Amy Rodriguez Reason for Consult: postop urinary retention, hammer. EMERGENT Consult: No Notified: Yes Date Notified: 04/30/24 Time Notified: 14:55 Method of Notification: Verbal Reason For Visit: LEFT KNEE EXPLANT Diagnosis Discharge Diagnosis (1) Infection of prosthetic left knee joint: Status: Acute Code(s): T84.54XA - Infection and inflammatory reaction due to internal left knee prosthesis, initial encounter Plan 78 year old female with below past medical history hospitalized for left prosthetic knee injection, underwent left total knee explant, antibiotic spacer placement 04/27/[address] Casillas, postoperative course complicated by urinary retention requiring hammer catheter, admitted to TCU with debility, here for rehabilitation, strengthening, intravenous antibiotics, prior to discharge home with . * Debility - PT/OT. * Dysphagia - ST. * Pain - Tylenol 1000mg q8, Oxycodone 5-10mg q4 prn pain (4-10). * Bowel - senna/colace 2 tablets bid prn. * Adult immunization - Administer pneumonia vaccine, covid vaccine, flu vaccine as appropriate. * DVT prophylaxis - Aspirin 81mg bidcm thru 05/30/2024. * Hypertension - Losartan 100mg daily, Amlodipine 10mg qhs. * Calcium deficiency - Calcium D 1 tablet daily. 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 Bowden to follow. * Vitamin D deficiency - D3 50mcg daily. * Vitamin B12 deficiency - B12 1000mcg daily. * Iron deficiency anemia - Ferrous sulfate 325mg daily. * Folate deficiency - Folic acid 1mg daily. * Diabetes Mellitus II - Lispro 25 units sc tidac. * Glaucoma - Latanoprost 1gtt ou qhs. * GERD - Pantoprazole 20mg daily. * Muscle spasm - Flexeril 10mg tid prn. Medications at Discharge Home Medications cholecalciferol (vitamin D3) 50 mcg (2,000 unit) capsule 2,000 unit PO DAILY supplement 07/20/19 omeprazole magnesium 20 mg tablet,delayed release (Prilosec OTC) 20 mg PO DAILY PRN Heartburn 07/20/19 cyanocobalamin (vitamin B-12) 1,000 mcg capsule 1,000 mcg PO DAILY supplement 06/14/20 omega-3 fatty acids-fish oil 340 mg-1,000 mg capsule 1 ea PO DAILY SUPPLEMENT 08/30/20 blood sugar diagnostic (FreeStyle Precision Esvin Strips) #100 ea 07/16/21 latanoprost 0.005 % eye drops 1 drp ophthalmic (eye) QHS EYES 12/24/21 d-mannose 500 mg capsule 2,100 mg PO BID 03/29/22 estradiol 0.01% (0.1 mg/gram) vaginal cream (Estrace) 1 appful vaginal DAILY 04/10/22 flash glucose sensor (FreeStyle Shani 2 Sensor kit) #1 ea 01/23/23 Handicap Placard #1 ea 12/24/23 insulin lispro protamine-lispro 100 unit/mL (50-50) subcutaneous pen (Humalog Mix 50-50 KwikPen) 25 unit subcut TID Diabetes 01/29/24 folic acid 1 mg tablet 1 mg PO DAILY supplement #90 tabs 02/11/24 ferrous sulfate 325 mg (65 mg iron) tablet 325 mg PO DAILY supplement #90 tabs 04/16/24 calcium-vitamin D 1200 slow release 1 tab PO DAILY Supplement 04/30/24 vancomycin 2 gram intravenous solution 2 g IV Q24H Infection 04/30/24 acetaminophen 500 mg tablet 1,000 mg (2 x 500 mg) PO Q8 #0 tabs 06/01/24 amlodipine 10 mg tablet 10 mg PO QHS 30 days #30 tabs 06/01/24 cyclobenzaprine 10 mg tablet 10 mg PO TID PRN PRN Muscle Spasm 30 days #90 tabs 06/01/24 losartan 100 mg tablet 100 mg PO DAILY 30 days #30 tabs 06/01/24 methenamine hippurate 1 gram tablet 1 g PO BID 30 days #60 tabs 06/01/24 oxycodone 5 mg tablet 5 - 10 mg (1 - 2 x 5 mg) PO Q4H PRN pain (scale score 4- 10) 7 days #84 tabs 06/01/24 sennosides 8.6 mg-docusate sodium 50 mg tablet (Stimulant Laxative Plus) 2 tab PO BID 30 days #120 tabs 06/01/24 Hospital Course Operations - (See below.) Procedures None Summary of Care Provided Minutes Spent on Discharge: 35 Hospital Course: 78 year old female with below past medical history hospitalized for left prosthetic knee injection, underwent left total knee explant, antibiotic spacer placement 04/27/[address] Casillas, postoperative course complicated by urinary retention requiring hammer catheter, admitted to TCU with debility, here for rehabilitation, strengthening, intravenous antibiotics, prior to discharge home with . 06/01/2024 Dr. Bowden recommending adding Methenamine 1gm po bid for recurrent urinary tract infection. Discharge home with 06/09/2024, No needs. Physical Exam Const alert General Appearance: cooperative HEENT normocephalic Eyes PERRL and EOMs intact bilaterally Neck supple, no JVD and no carotid bruits Resp normal respiratory effort, normal air movement and clear to auscultation bilaterally Cardio regular rate and regular rhythm GI normal to inspection, nondistended, normoactive bowel sounds, non-tender and non-distended Extremity normal capillary refill General Extremity: Negative for edema Skin no rashes or lesions noted General Skin Exam: no breakdown Psych affect normal Appearance: appropriate Weight / BMI Weight Weight: 88.541 kg Body Mass Index (BMI) 31.5 ABG / Lab / Microbiology Data 05/28/24 05:27 05/28/24 05:27 Laboratory: Laboratory Results - last 24 hr 06/01/24 06:01: POC Glucose 154 H 06/01/24 11:21: POC Glucose 197 H 06/01/24 16:59: POC Glucose 117 H Microbiology: Microbiology 05/06/24 05:52 Nasal Secretion SARS-CoV-2 Antigen (Rapid) - Final D/C Instructions Discharge Diet: No restrictions Discharge Activity: Return to Normal Activity, May Shower and Use Walker Weight Bearing Status: Weight bearing as tolerated Call your doctor if you observe: Fever of 101 or Higher, Inability to urinate, Inability to have a bowel movement, Shortness of breath, Dizziness, Fainting spells, Swelling in the ankles, Chest pain and Uncontrolled pain Additional Instructions: Discharge home with 06/09/2024, No needs. Please Follow Up With: Amy Rodriguez MD When: As scheduled. Meaningful Use Info Meaningful Use Meaningful Use Diagnoses (Choose all that apply): None applicable Ischemic Stroke Statin Dosing Therapy Reference: STATIN DOSE THERAPY REFERENCE: * Patients > 75 years receive moderate or high dose statin therapy. * Patients 75 years or YOUNGER should receive HIGH intensity statin dose unless contraindicated. You will be required to document reason for non-treatment if statin daily dose does not meet guidelines. HIGH DOSE STATIN THERAPY DAILY Atorvastatin > than or = to 40 mg Rosuvastatin > than or = to 20 mg Amlodipine + Atorvastatin > than or = to 2.5/40 mg Ezetimibe + Simvastatin 10/80 mg Simvastatin 80mg Discharge Plan Admission Admit Date/Time: 04/30/24 12:46 Primary Reason for Your Visit: Debility. Attending Provider: Ra Mccracken Chi Primary Care Provider: Luther Torre Consulting Providers: Jc Bowden; Amy Rodriguez Instructions Additional Instructions / Restrictions: Discharge home with 06/09/2024, No needs. Discharge Orders/Prescriptions Prescriptions: New cyclobenzaprine 10 mg Tablet 10 mg PO TID PRN PRN (Reason: Muscle Spasm) 30 Days Qty: 90 0RF sennosides-docusate sodium [Stimulant Laxative Plus] 8.6-50 mg Tablet 2 tab PO BID 30 Days Qty: 120 0RF acetaminophen 500 mg Tablet 1,000 mg PO Q8 Qty: 0 0RF methenamine hippurate 1 gram Tablet 1 g PO BID 30 Days Qty: 60 0RF amlodipine 10 mg Tablet 10 mg PO QHS 30 Days Qty: 30 0RF losartan 100 mg Tablet 100 mg PO DAILY 30 Days Qty: 30 0RF oxycodone 5 mg Tablet 5 - 10 mg PO Q4H PRN (Reason: pain (scale score 4-10)) 7 Days Qty: 84 0RF Continued cholecalciferol (vitamin D3) 2,000 unit capsule 2,000 unit PO DAILY Prilosec OTC 20 mg tablet,delayed release (DR/EC) 20 mg PO DAILY PRN (Reason: Heartburn) latanoprost 0.005 % drops 1 drp ophthalmic (eye) QHS Patient Comments: INSTILL 1 DROP INTO BOTH EYES EVERY DAY AT NIGHT estradiol [Estrace] 0.01 % (0.1 mg/gram) cream 1 appful vaginal DAILY Rx Instructions: for 14 days Humalog Mix 50-50 KwikPen 100 unit/mL (50-50) insulin pen 25 unit subcut TID Rx Instructions: before meals cyanocobalamin (vitamin B-12) 1,000 MCG capsule 1,000 mcg PO DAILY omega-3 fatty acids-fish oil 1 EACH capsule 1 ea PO DAILY d-mannose 500 mg Capsule 2,100 mg PO BID calcium-vitamin D 1200 slow release tablet 1 tab PO DAILY folic acid 1 mg tablet 1 mg PO DAILY Qty: 90 2RF ferrous sulfate 325 mg (65 mg iron) tablet 325 mg PO DAILY Qty: 90 2RF Discontinued Adult Probiotic 3 billion cell capsule 3,000 mmu cells PO BID trimethoprim 100 mg tablet PO Patient Comments: TAKE 1 TABLET BY MOUTH EVERYDAY AT BEDTIME acetaminophen [Tylenol] 325 mg tablet 500 mg PO DAILY Rx Instructions: 2 twice daily for the pain acetaminophen 500 mg tablet 1,000 mg PO BID PRN (Reason: pain (scale score 1-3)) aspirin 81 mg tablet,delayed release (DR/EC) 81 mg PO BID ceftriaxone 2 gram recon soln 2 g IV DAILY sennosides-docusate sodium [Senna with Docusate Sodium] 8.6-50 mg tablet 2 tab-cap PO BID PRN (Reason: constipation) oxycodone 5 mg tablet 5 - 10 mg PO Q4H PRN (Reason: pain (scale score 4-6)) amlodipine 5 mg tablet 5 mg PO QHS lisinopril 40 mg tablet 40 mg PO DAILY Qty: 90 1RF No Action (DME) FreeStyle Precision Esvin Strips Strip See Rx Instructions .ROUTE .MEDSUPPLY Qty: 100 6RF Rx Instructions: 3x/day (DME) Handicap Placard See Rx Instructions .ROUTE .MEDSUPPLY Qty: 1 0RF Rx Instructions: As directed, length of time 3 years vancomycin 2 gram recon soln 2 g IV Q24H (DME) FreeStyle Shani 2 Sensor Kit See Rx Instructions .Route Qty: 1 0RF Rx Instructions: As directed Referrals / Follow Up: Luther Torre MD [Primary Care Provider] - Disposition Disposition (needs filled in before D/C Order can be placed): Home, Self Care
[2024-06-01 21:25] VITALS: BP 155/64; PULSE 62
[2024-06-01] MEDS: Latanoprost 0.005% 1 Bottle 1 DRP OPHTHALMIC (21:25)
[2024-06-01] MEDS: amLODIPine 10 MG Tablet PO (21:26)
[2024-06-02 05:51] VITALS: BP 163/63; PULSE 82
[2024-06-02] MEDS: hydrALAZINE 10 MG Tablet PO ×3 (05:51→21:34)
[2024-06-02] MEDS: Acetaminophen 500 MG Tablet 1000 MG PO ×3 (05:51→21:35)
[2024-06-02 07:04] LABS: Bedside Glucose 157 mg/dL (74-106)
[2024-06-02] MEDS: Vancomycin HCl 750 MG in 0.9% Normal Saline (250mL Bag) 250 ML 250 MG IV ×2 (07:36→17:59)
[2024-06-02] MEDS: Calcium Carb/Vitamin D 1 TABLET Tablet PO (07:41)
[2024-06-02] MEDS: Cyanocobalamin 500 MCG Tablet 1000 MCG PO (07:41)
[2024-06-02] MEDS: Pantoprazole Sodium 20 MG Tablet PO (07:41)
[2024-06-02] MEDS: Insulin Lispro 100 UNIT/ML INSULN.PEN 15 UNIT SC ×3 (07:41→17:24)
[2024-06-02] MEDS: Losartan Potassium 100 MG Tablet PO (07:41)
[2024-06-02] MEDS: Folic Acid 1 MG Tablet PO (07:41)
[2024-06-02] MEDS: Cholecalciferol (VIT D3) 25 MCG TABLET (1,000 UNITS) 50 MCG PO (07:41)
[2024-06-02] MEDS: Glucerna Shake 120 ML LIQUID PO ×3 (07:44→17:22)
[2024-06-02 10:00] VITALS: RESP 16; O2SAT 96
[2024-06-02] MEDS: Ceftriaxone 2 GM in 0.9% Normal Saline (50mL MB+) 50 ML IV (10:45)
[2024-06-02] MEDS: 0.9 % NaCl (Sterile) Posiflush 10 mL IV (10:45)
[2024-06-02] MEDS: 0.9% Normal Saline (250mL Bag) 250 ML 15 ML IV (10:47)
[2024-06-02 11:07] LABS: Bedside Glucose 158 mg/dL (74-106)
[2024-06-02 11:11] VITALS: BP 155/67; PULSE 79; RESP 16; TEMP 36.6; O2SAT 97
[2024-06-02] MEDS: Ferrous Sulfate 325 MG Tablet PO (12:05)
[2024-06-02 13:36] VITALS: BP 148/67; PULSE 78
[2024-06-02 16:40] LABS: Bedside Glucose 145 mg/dL (74-106)
[2024-06-02] MEDS: 0.9% Saline Lock 10 ML Syringe IV ×3 (17:22→20:55)
[2024-06-02] MEDS: Alteplase 2 MG/2 ML Vial IV (19:21)
--- NOTE | 2024-06-02 19:27 | NURSING ---
cath genaro placed in both picc lumens at 7:25p, will have next shift recheck for blood return at 8pm-8:30pm.
[2024-06-02 21:32] VITALS: BP 160/75; PULSE 65
[2024-06-02] MEDS: Latanoprost 0.005% 1 Bottle 1 DRP OPHTHALMIC (21:33)
[2024-06-02 21:34] VITALS: BP 160/75; PULSE 65
[2024-06-02] MEDS: amLODIPine 10 MG Tablet PO (21:34)
--- NOTE | 2024-06-02 23:35 | NURSING ---
At 2034, this nurse removed 3mL of fluid from each PICC lumen (2) to remove cath flow administered by dayshift. Both lumens flushed with 20mL normal saline, new needleless connectors placed to each lumen. Both lumens flushed well with good blood return.
[2024-06-03] VITALS (7 sets, daily range): BP systolic 153–165; BP diastolic 62–82; PULSE 71–88; RESP 14; TEMP 35.9; O2SAT 94–96
[2024-06-03] MEDS: 0.9% Saline Lock 10 ML Syringe IV ×3 (05:05→21:24)
[2024-06-03] MEDS: Vancomycin HCl 750 MG in 0.9% Normal Saline (250mL Bag) 250 ML 250 MG IV ×2 (05:12→17:24)
[2024-06-03] MEDS: Acetaminophen 500 MG Tablet 1000 MG PO ×3 (05:14→21:22)
[2024-06-03] MEDS: hydrALAZINE 10 MG Tablet PO (05:16)
[2024-06-03 06:40] LABS: Bedside Glucose 142 mg/dL (74-106)
[2024-06-03] MEDS: Insulin Lispro 100 UNIT/ML INSULN.PEN 15 UNIT SC ×3 (08:14→17:25)
[2024-06-03] MEDS: Glucerna Shake 120 ML LIQUID PO ×3 (08:15→17:46)
[2024-06-03] MEDS: Cholecalciferol (VIT D3) 25 MCG TABLET (1,000 UNITS) 50 MCG PO (08:16)
[2024-06-03] MEDS: Losartan Potassium 100 MG Tablet PO (08:16)
[2024-06-03] MEDS: Cyanocobalamin 500 MCG Tablet 1000 MCG PO (08:16)
[2024-06-03] MEDS: Pantoprazole Sodium 20 MG Tablet PO (08:16)
[2024-06-03] MEDS: Calcium Carb/Vitamin D 1 TABLET Tablet PO (08:16)
[2024-06-03] MEDS: Folic Acid 1 MG Tablet PO (08:16)
[2024-06-03] MEDS: Ceftriaxone 2 GM in 0.9% Normal Saline (50mL MB+) 50 ML IV (10:27)
[2024-06-03] MEDS: 0.9 % NaCl (Sterile) Posiflush 10 mL IV ×2 (10:28→17:25)
[2024-06-03] MEDS: cycloBENZAPRine HCl 10 MG Tablet PO (10:48)
[2024-06-03] MEDS: Ferrous Sulfate 325 MG Tablet PO (12:16)
[2024-06-03 12:17] LABS: Bedside Glucose 122 mg/dL (74-106)
--- NOTE | 2024-06-03 14:18 | PCM.PN.DRR ---
TCU RX Drug Regimen Review Subjective/Objective Subjective/Objective: Subjective: TCU monthly medication list review note prior to planned discharge on 06/09/24. Objective: Allergies ciprofloxacin Allergy (Severe, Verified 01/29/24 14:46) impairment of motor skills hydrochlorothiazide Allergy (Mild, Verified 04/30/24 14:11) other bloating gatifloxacin (From Tequin) Allergy (Unknown, Verified 04/30/24 14:11) Other lidocaine (From Xylocaine) Allergy (Unknown, Verified 04/30/24 14:11) Other Sulfa (Sulfonamide Antibiotics) Allergy (Unknown, Verified 01/29/24 14:46) unknown burning metformin Adverse Reaction (Intermediate, Verified 01/29/24 14:46) loose stool, bladder infections sitagliptin (From Janumet) Adverse Reaction (Intermediate, Verified 01/29/24 14:46) loose stool batroxobin Adverse Reaction (Unknown, Verified 01/29/24 14:46) unknown exenatide (From Byetta) Adverse Reaction (Unknown, Verified 01/29/24 14:46) unknown nizatidine (From Axid) Adverse Reaction (Unknown, Verified 01/29/24 14:46) unknown sertraline (From Zoloft) Adverse Reaction (Unknown, Verified 01/29/24 14:46) unknown simvastatin (From Zocor) Adverse Reaction (Unknown, Verified 01/29/24 14:46) unknown trandolapril (From Mavik) Adverse Reaction (Unknown, Verified 01/29/24 14:46) unknown betaxolol Adverse Reaction (Verified 01/29/24 14:46) Other doxazosin Adverse Reaction (Verified 01/29/24 14:46) Other olmesartan (From Benicar) Adverse Reaction (Verified 01/29/24 14:46) Diarrhea Current Medications Generic Name Dose Route Start Last Admin Trade Name Freq PRN Reason Stop Dose Admin Acetaminophen 1,000 mg 05/04/24 22:00 06/03/24 05:14 Acetaminophen 500 Mg Tablet PO 1,000 mg Q8 RAEANN Administration Amlodipine Besylate 10 mg 05/24/24 22:00 06/02/24 21:34 Amlodipine 10 Mg Tablet PO 10 mg QHS RAEANN Administration Protocol Calcium/Vitamin D 1 tablet 05/01/24 08:00 06/03/24 08:16 Calcium Carb/Vitamin D 1 Tablet Tablet PO 1 tablet DAILYCM RAEANN Administration Cholecalciferol 50 mcg 05/01/24 08:00 06/03/24 08:16 Cholecalciferol (Vit D3) 25 Mcg Tablet (1,000 Units) PO 50 mcg DAILYCM RAEANN Administration Cyanocobalamin 1,000 mcg 05/01/24 08:00 06/03/24 08:16 Cyanocobalamin 500 Mcg Tablet PO 1,000 mcg DAILYCM RAEANN Administration Cyclobenzaprine HCl 10 mg 05/05/24 17:35 06/03/24 10:48 Cyclobenzaprine Hcl 10 Mg Tablet PO 10 mg TID PRN PRN Administration MUSCLE SPASM Ferrous Sulfate 325 mg 05/01/24 12:00 06/03/24 12:16 Ferrous Sulfate 325 Mg Tablet PO 325 mg LUNCH RAEANN Administration Folic Acid 1 mg 05/01/24 08:00 06/03/24 08:16 Folic Acid 1 Mg Tablet PO 1 mg DAILYCM RAEANN Administration Heparin Sodium (Beef Lung) 50 units 05/22/24 10:12 05/22/24 10:54 Heparin Pf Lock 10 Units/Ml 50 Units/5 Ml Syringe IV 50 units UD PRN Administration PICC Line Heparin Flush Hydralazine HCl 25 mg 06/03/24 14:00 Hydralazine 25 Mg Tablet PO TID [facility] Protocol Ceftriaxone Sodium 2 gm/ 50 mls @ 100 mls/hr 05/01/24 10:00 06/03/24 11:15 Sodium Chloride IV Infused Q24 RAEANN Infusion Vancomycin IV-PHARMACY TO DOSE 500 mls @ 250 mls/hr 04/30/24 14:49 1 each/ Sodium Chloride IV X1 PRN Rx to Dose Protocol Sodium Chloride 250 mls @ 15 mls/hr 04/30/24 19:27 06/02/24 20:05 IV 0 mls/hr .[id number] PRN Infusion Additional IVPB Infusion Sodium Chloride 250 mls @ 15 mls/hr 04/30/24 19:27 05/10/24 17:16 IV Infused .[id number] PRN Infusion Saline Flush Vancomycin HCl 750 mg/ Sodium 265 mls @ 250 mls/hr 05/10/24 18:00 06/03/24 06:27 Chloride IV Infused Q12H RAEANN Infusion Insulin Human Lispro 15 unit 05/05/24 06:45 06/03/24 12:16 Insulin Lispro 100 Unit/Ml Insuln.Pen SC 15 u TIDAC RAEANN Administration Latanoprost 1 drp 04/30/24 22:00 06/02/24 21:33 Latanoprost 0.005% 1 Bottle OPHTHALMIC 1 drp QHS RAEANN Administration Losartan Potassium 100 mg 05/25/24 10:00 06/03/24 08:16 Losartan Potassium 100 Mg Tablet PO 100 mg DAILY RAEANN Administration Protocol Methenamine Hippurate 1 gm 06/08/24 10:00 Methenamine Hippurate 1 Gm Tablet PO BID RAEANN Nutritional Formula (Lactose Free) 120 ml 05/01/24 12:45 06/03/24 12:16 Glucerna Shake 120 Ml Liquid PO 120 ml TIDCM RAEANN Administration Oxycodone HCl 5 - 10 mg 04/30/24 13:57 05/30/24 03:36 Oxycodone 5 Mg Tablet PO 5 mg Q4H PRN Administration pain (scale score 4-10) Pantoprazole Sodium 20 mg 05/01/24 10:00 06/03/24 08:16 Pantoprazole Sodium 20 Mg Tablet PO 20 mg DAILY [facility] Administration Senna/Docusate Sodium 2 tablet 05/06/24 10:00 06/03/24 08:17 Senna/Docusate Sodium 1 Tablet PO Not Given BID [facility] Sodium Chloride 10 - 40 ml 04/30/24 14:03 06/03/24 10:28 0.9 % Nacl (Sterile) Posiflush 10 Ml IV 20 ml UD PRN Administration Port access or dressing change Sodium Chloride 10 - 40 ml 04/30/24 14:03 06/03/24 06:22 0.9% Saline Lock 10 Ml Syringe IV 10 ml UD PRN Administration Closed End PICC Flush Vancomycin Protocol 1 lab 06/04/24 15:30 Vancomycin Trough/Random Due MC 06/04/24 19:30 DAILY [facility] Problem List Constipation (Acute) Type 2 diabetes mellitus with hyperglycemia (Acute) Essential (primary) hypertension (Acute) Urinary retention (Acute) Infection of prosthetic left knee joint (Acute) Debility (Acute) Recurrent UTI (Chronic) Glaucoma (Chronic) Atrophic vaginitis (Chronic) GERD (gastroesophageal reflux disease) (Chronic) Chronic UTI (urinary tract infection) (Chronic) Vital Signs Temp Pulse Resp BP Pulse Ox O2 Del Method 98 F 76 16 154/64 H 97 Room Air 06/02/24 11:11 06/03/24 08:22 06/02/24 11:11 06/03/24 08:22 06/02/24 11:11 06/02/24 11:11 Oxygen Delivery Method Room Air Weight: 88.541 kg Body Mass Index (BMI) 31.5 Sodium 140 mmol/L (136-145) 05/28/24 05:27 Potassium 4.1 mmol/L (3.5-5.1) 05/28/24 05:27 Chloride 106 mmol/L (98-107) 05/28/24 05:27 Carbon Dioxide 25.0 mmol/L (21.0-32.0) 05/28/24 05:27 Anion Gap 9 (5-15) 05/28/24 05:27 BUN 16 mg/dL (7-18) 05/28/24 05:27 Creatinine 0.76 mg/dL (0.55-1.02) 05/28/24 05:27 Est GFR (MDRD) Af Amer 95 mL/min (>60) 05/28/24 05:27 Est GFR (MDRD) Non-Af 79 mL/min (>60) 05/28/24 05:27 BUN/Creatinine Ratio 21.2 RATIO (10-20) H 05/28/24 05:27 Glucose 151 mg/dL (74-106) H 05/28/24 05:27 Vancomycin Trough 15.6 ug/mL (5.0-15.0) H 05/28/24 17:31 Random Vancomycin 15.2 ug/mL (0.0-15.0) H 05/08/24 15:34 Assessment/Plan: 1. Pain: acetaminophen 1000 mg PO Q8h, oxycodone 5-10 mg PO Q4H PRN pain (4-10). Please continue to monitor pain levels, PRN medication usage, LFTs, for constipation, respiratory depression, dizziness, and syncope/ataxia/falls. 2. Bowel: senna/docusate 2 tablets PO BID. The patient's last bowel movement was 06/02/24. Please continue to monitor for bowel movements, for constipation and diarrhea. 3. Left prosthetic knee infection: ceftriaxone 2 grams IV daily, Vancomycin 750 mg IV Q12H. Please continue to monitor for s/s of infection such as redness/swelling/pain around joint, white blood cell count, for fevers, for diarrhea, for rash with vancomycin administration, vancomycin troughs (last vancomycin trough = 15.6 on 05/28/24), and renal function (serum creatinine = 0.76 mg/dL on 05/28/24). Plan per ID is for completion of antibiotic on 06/08/24, 1 day prior to discharge. 4. Hypertension: amlodipine 10 mg PO QHS, losartan 100mg PO daily, hydralazine 25mg PO TID. Please continue to monitor blood pressures, for lower extremity edema, and renal function. 5. Diabetes Mellitus II: insulin lispro 15 units TIDAC. Please continue to monitor blood glucose levels, hemoglobin A1C levels (Hgb = 6.3% on 01/29/24), and for pain at injection sites. 6. GERD: pantoprazole 20 mg PO daily. Please continue to monitor for s/s of GERD, for diarrhea that could indicate clostridium difficile infection, and for s/s of bone resorption issues such as fractures. 7. Iron deficiency anemia: ferrous sulfate 325 mg PO daily. Please continue to monitor hemoglobin levels, and iron studies as clinically indicated. 8. Glaucoma: latanoprost 1 drop in both eyes QHS. Please continue to monitor for s/s of eye disease, and for eye itchiness. 9. General Wellness: calcium carbonate/vitamin D 1 tablet PO daily, cholecalciferol 50 mcg PO daily, cyanocobalamin 1000 mcg PO daily, folic acid 1 mg PO daily. 10. UTI Prophylaxis: Methenamine 1g PO BID. Please continue to monitor for S/S recurrent UTI. 11. Muscle spasm: Flexeril 10mg PO TID PRN. Please continue to monitor for oversedation, medication effectiveness. Assessment/Plan for indications treated with psychotropic medications: -The patient is not currently being maintained on psychotropic medications at time of medication list review. Date Date of Note:: 06/03/24
[2024-06-03] MEDS: hydrALAZINE 25 MG Tablet PO ×2 (14:22→21:21)
[2024-06-03 17:05] LABS: Bedside Glucose 141 mg/dL (74-106)
[2024-06-03] MEDS: 0.9% Normal Saline (250mL Bag) 250 ML 15 ML IV (17:24)
[2024-06-03] MEDS: amLODIPine 10 MG Tablet PO (21:22)
[2024-06-03] MEDS: Latanoprost 0.005% 1 Bottle 1 DRP OPHTHALMIC (21:23)
[2024-06-04] VITALS (7 sets, daily range): BP systolic 142–153; BP diastolic 53–65; PULSE 64–89; RESP 16–17; TEMP 36.7–36.8; O2SAT 95–97
[2024-06-04 06:23] LABS: Bedside Glucose 155 mg/dL (74-106)
[2024-06-04] MEDS: Acetaminophen 500 MG Tablet 1000 MG PO ×3 (06:24→22:05)
[2024-06-04] MEDS: hydrALAZINE 25 MG Tablet PO ×3 (06:24→20:31)
[2024-06-04] MEDS: Vancomycin HCl 750 MG in 0.9% Normal Saline (250mL Bag) 250 ML 250 MG IV ×2 (06:25→18:50)
[2024-06-04] MEDS: cycloBENZAPRine HCl 10 MG Tablet PO ×2 (06:26→14:27)
[2024-06-04 07:47] LABS: Absolute Lymphocyte Count 2.51 X10^3/uL (0.83-4.51); Absolute Neutrophil Count 5.4 X10^3/uL (2.0-7.7); Basophil# 0.04 X10^3/uL; Basophil% 0.4 % (0-1); Eosinophil# 0.29 X10^3/uL; Eosinophils% 3.2 % (0-5); Hematocrit 32.6 % (37-47); Hemoglobin 9.9 g/dL (12.0-15.0); Lymphocyte # 2.51 X10^3/ul (0.83-4.51); Lymphocyte % 27.7 % (19-41); Mean Corp Hgb Conc 30.4 g/dL (32-36); Mean Corpuscular Hgb 27.3 pg (27.0-32.0); Mean Corpuscular Volume 89.8 fL (81-99); Mean Platelet Vol. 9.4 fl (6.2-12.0); Monocyte# 0.83 X10^3/uL; Monocyte% 9.2 % (0-10); NRBC Flagged by Analyzer 0 % (0-5); Neutrophil # 5.36 X10^3/uL (2.7-7.7); Neutrophil % 59.1 % (47-70); Platelet Count 224 K/mm3 (150-450); RBC Distribution Width CV 14.6 % (11.6-14.6); RBC Distribution Width SD 47.2 fl (35.1-43.9); Red Blood Count 3.63 M/mm3 (4.2-5.4); White Blood Count 9.1 K/mm3 (4.4-11.0)
[2024-06-04 07:59] LABS: Erythrocyte Sedimentation Rate 31 mm/hr (0-30)
[2024-06-04] MEDS: Insulin Lispro 100 UNIT/ML INSULN.PEN 15 UNIT SC ×2 (08:18→12:28)
[2024-06-04] MEDS: Cyanocobalamin 500 MCG Tablet 1000 MCG PO (08:19)
[2024-06-04] MEDS: Calcium Carb/Vitamin D 1 TABLET Tablet PO (08:19)
[2024-06-04] MEDS: Folic Acid 1 MG Tablet PO (08:19)
[2024-06-04 08:20] LABS: Anion Gap 8 (5-15); BUN 20 mg/dL (7-18); BUN/Creat Ratio 25.9 RATIO (10-20); Calcium,Total 9.5 mg/dL (8.5-10.1); Chloride 107 mmol/L (98-107); Creatinine, Serum 0.77 mg/dL (0.55-1.02); EST Glomerular Filtration Rate 77 mL/min (>60); Est Glom Filt Rate - Afr Amer 93 mL/min (>60); Estimated Creatinine Clearance 64.96 ml/min; Glucose 169 mg/dL (74-106); Sodium Level 139 mmol/L (136-145)
[2024-06-04] MEDS: Cholecalciferol (VIT D3) 25 MCG TABLET (1,000 UNITS) 50 MCG PO (08:20)
[2024-06-04] MEDS: Losartan Potassium 100 MG Tablet PO (08:20)
[2024-06-04] MEDS: Pantoprazole Sodium 20 MG Tablet PO (08:20)
[2024-06-04] MEDS: 0.9 % NaCl (Sterile) Posiflush 10 mL IV ×3 (08:22→18:51)
[2024-06-04] MEDS: Glucerna Shake 120 ML LIQUID PO ×3 (08:24→18:03)
[2024-06-04] MEDS: Ceftriaxone 2 GM in 0.9% Normal Saline (50mL MB+) 50 ML IV (09:58)
--- NOTE | 2024-06-04 10:15 | NURSING ---
Nursing staff and PT/OT noted patient being off. Patient having increased weakness today and confusion. RN to assess patient and noted patient having slurred speech, difficulty with finding her words, patient confused, and having more weakness. Vital signs obtained. Patient transferred to bed. Stoke alert called. Dr. Dobbins assessed patient. NIH [address] Dobbins. Stroke alert canceled. CT of head ordered STAT.
[2024-06-04 11:05] LABS: Bedside Glucose 144 mg/dL (74-106)
--- NOTE | 2024-06-04 12:00 | PCM.PROGNOTE ---
Subjective Subjective I responded to a stroke alert called on this patient for slurred speech and altered level of consciousness. She was in therapy when sx where noticed. She denied any numbness or weakness on one side of the body and not the other. She denied any visual changes. She denied any history of atrial fibrillation and denied any history of stroke or TIA. She is not on an antiplatelet agent nor is she on a statin. She has been diabetic for 27 years. She also has hypertension. She was alert and oriented when I presented to the room. She was lying in bed and appeared to be comfortable. 1. LOC Alert: 0 2. LOC/Orientation: 0 3. LOC Commands: 0 4. Horizontal extraocular movements : 0 5. Visual garcia: 0 6. Facial Paresis: 0 7. Motor arm left: 0 8. Motor arm right: 0 9. Motor leg left: Unable to accurately score this due to the fact that the patient recently had surgery on her knee and is in a knee brace. She was unable to lift her left leg off the bed. 10. Motor leg right: 0 11. Limb ataxia: 0 12. Sensory: 0 13. Best language: 0 14. Dysarthria: 0 15. Extinction and inattention: 0 Total score 0 HRRR without MM Lungs CTA no carotid bruits abd - soft, NT, ND Sent to CT for a NC CT brain which was negative for any acute pathology CTA of the head and neck was performed and showed cerebral atrophy with an old lacunar infarct in the insular cortex of the right temporal lobe. Impression 1. Possible TIA. 2. Old lacunar infarct R temporal lobe 3. DM II 4. HTN Plan 1. Administer 162 mg of aspirin now and start 81 mg every morning with breakfast. 2. Order lipid panel for the a.m. and start Lipitor 40 mg nightly. 3. event monitor at PR from U 4. q 4 H neurochecks for 24 hours. I explained the results of the CT scans with the pt and her and outlined the plan for care with them. All their questions were answered to their satisfaction. She lists simvastatin as an allergy but, she does not know the reaction. She is agreeable to a statin starting tonight. Since she has had a stoke in the past she should be on a statin chronically. Objective Data Objective Data Vital Signs: Vital Signs Temp Pulse Resp BP Pulse Ox O2 Del Method 98.1 F 69 16 146/62 H 95 Room Air 06/04/24 10:25 06/04/24 10:25 06/04/24 10:25 06/04/24 10:25 06/04/24 10:25 06/04/24 10:25 Oxygen Delivery Method Room Air Weight: 195 lb 3.2 oz Body Mass Index (BMI) 31.5 Intake & Output: Intake and Output for Last 24 Hours 06/02/24 06/03/24 06/04/24 23:59 23:59 23:59 Intake Total 1424.5 / 1424.5 1300 / 1300 777.25 / 777.25 Balance 1424.5 / 1424.5 1300 / 1300 777.25 / 777.25 Lab / Micro Data 06/04/24 07:24 06/04/24 07:24 Labs: Laboratory Results - last 24 hr 06/03/24 11:59: POC Glucose 122 H 06/03/24 16:34: POC Glucose 141 H 06/04/24 06:00: POC Glucose 155 H 06/04/24 07:24: WBC 9.1, RBC 3.63 L, Hgb 9.9 L, Hct 32.6 L, MCV 89.8, MCH 27.3, MCHC 30.4 L, RDW Std Deviation 47.2 H, RDW Coeff of Rainer 14.6, Plt Count 224, MPV 9.4, Immature Gran % (Auto) 0.400, Neut % (Auto) 59.1, Lymph % (Auto) 27.7, Emanuel % (Auto) 9.2, Eos % (Auto) 3.2, Baso % (Auto) 0.4, Absolute Neuts (auto) 5.4, Absolute Lymphs (auto) 2.51, Nucleated RBC % 0, ESR 31 H, Sodium 139, Potassium 4.0, Chloride 107, Carbon Dioxide 25.0, Anion Gap 8, BUN 20 H, Creatinine 0.77, Estim Creat Clear Calc 64.96, Est GFR (MDRD) Af Amer 93, Est GFR (MDRD) Non-Af 77, BUN/Creatinine Ratio 25.9 H, Glucose 169 H, Calcium 9.5 06/04/24 10:40: POC Glucose 144 H Micro: Microbiology 05/06/24 05:52 Nasal Secretion SARS-CoV-2 Antigen (Rapid) - Final Charges/Coding Visit Charges Inpatient E&M: 84215 SNF Subs New Prob
[2024-06-04] MEDS: Ferrous Sulfate 325 MG Tablet PO (12:28)
[2024-06-04] MEDS: Aspirin 81 MG TAB.CHEW 162 MG PO (12:28)
--- NOTE | 2024-06-04 13:42 | NURSING ---
Call placed to [facility] to set up cardiac event monitor for patient after discharge. No answer. VM left with call back number.
[2024-06-04 16:46] LABS: Bedside Glucose 100 mg/dL (74-106)
[2024-06-04 18:09] LABS: Vancomycin, Trough Level 16.8 ug/mL (5.0-15.0)
--- NOTE | 2024-06-04 18:22 | PCM.RX.CS ---
Consult Antibiotic Management Pharmacy has been consulted to manage selected antibiotic: Vancomycin Type of Intervention Type of Consult: Follow-up Labs Labs: Sodium 139 mmol/L (136-145) 06/04/24 07:24 Potassium 4.0 mmol/L (3.5-5.1) 06/04/24 07:24 Chloride 107 mmol/L (98-107) 06/04/24 07:24 Carbon Dioxide 25.0 mmol/L (21.0-32.0) 06/04/24 07:24 Anion Gap 8 (5-15) 06/04/24 07:24 BUN 20 mg/dL (7-18) H 06/04/24 07:24 Creatinine 0.77 mg/dL (0.55-1.02) 06/04/24 07:24 Est GFR (MDRD) Af Amer 93 mL/min (>60) 06/04/24 07:24 Est GFR (MDRD) Non-Af 77 mL/min (>60) 06/04/24 07:24 BUN/Creatinine Ratio 25.9 RATIO (10-20) H 06/04/24 07:24 Glucose 169 mg/dL (74-106) H 06/04/24 07:24 Vancomycin Trough 16.8 ug/mL (5.0-15.0) H 06/04/24 17:37 Random Vancomycin 15.2 ug/mL (0.0-15.0) H 05/08/24 15:34 Microbiology Microbiology: Microbiology 05/06/24 05:52 Nasal Secretion SARS-CoV-2 Antigen (Rapid) - Final Goal Trough Goal Trough: 15-20 mcg/mL Pharmacy Plan for Drug Dosing Pharmacy Plan for Drug Dosing: VANCOMYCIN LEVEL RECEIVED Current Vancomycin Dose: 750mg IV Q12h Number of Doses Received: 50 (of current regimen) Vancomycin Level: 16.8 Hours Since Last Dose: 11hr Renal Function: 0.77 Renal Function Trend: stable Lab/Micro: no new data Vancomycin Plan/Comments: patient had a trough drawn which resulted in a value of 16.8 (goal 15-20). Patient is within therapeutic window and stable on current regimen. Will continue current dose of vancomycin 750mg Q12hr and recheck at rough in 1 week to assess dosing at that time. Pending Level: 06/11/24 @1550 Pharmacy Service will continue to monitor and adjust dosing as required.
[2024-06-04] MEDS: Atorvastatin Calcium 40 MG Tablet PO (20:32)
[2024-06-04] MEDS: amLODIPine 10 MG Tablet PO (20:32)
[2024-06-05] VITALS (7 sets, daily range): BP systolic 143–169; BP diastolic 53–85; PULSE 64–79; RESP 16; TEMP 36.3; O2SAT 95
[2024-06-05] MEDS: hydrALAZINE 25 MG Tablet PO ×3 (05:51→22:13)
[2024-06-05] MEDS: Acetaminophen 500 MG Tablet 1000 MG PO ×3 (05:51→22:14)
[2024-06-05] MEDS: Vancomycin HCl 750 MG in 0.9% Normal Saline (250mL Bag) 250 ML 250 MG IV ×2 (05:54→18:09)
[2024-06-05 06:43] LABS: Bedside Glucose 176 mg/dL (74-106)
[2024-06-05] MEDS: Insulin Lispro 100 UNIT/ML INSULN.PEN 15 UNIT SC ×3 (08:18→18:05)
[2024-06-05] MEDS: Aspirin 81 MG TAB.CHEW PO (08:19)
[2024-06-05] MEDS: Folic Acid 1 MG Tablet PO (08:19)
[2024-06-05] MEDS: Cyanocobalamin 500 MCG Tablet 1000 MCG PO (08:20)
[2024-06-05] MEDS: Calcium Carb/Vitamin D 1 TABLET Tablet PO (08:20)
[2024-06-05] MEDS: Cholecalciferol (VIT D3) 25 MCG TABLET (1,000 UNITS) 50 MCG PO (08:20)
[2024-06-05] MEDS: Losartan Potassium 100 MG Tablet PO (08:20)
[2024-06-05] MEDS: Pantoprazole Sodium 20 MG Tablet PO (08:20)
[2024-06-05] MEDS: 0.9 % NaCl (Sterile) Posiflush 10 mL IV ×3 (08:24→18:09)
[2024-06-05] MEDS: Ceftriaxone 2 GM in 0.9% Normal Saline (50mL MB+) 50 ML IV (10:07)
[2024-06-05] MEDS: 0.9% Normal Saline (250mL Bag) 250 ML 15 ML IV (10:07)
[2024-06-05 11:33] LABS: Bedside Glucose 153 mg/dL (74-106)
[2024-06-05] MEDS: Ferrous Sulfate 325 MG Tablet PO (12:19)
[2024-06-05 17:04] LABS: Bedside Glucose 81 mg/dL (74-106)
[2024-06-05] MEDS: Glucerna Shake 120 ML LIQUID PO (18:09)
[2024-06-05] MEDS: amLODIPine 10 MG Tablet PO (22:15)
[2024-06-05] MEDS: Atorvastatin Calcium 40 MG Tablet PO (22:15)
[2024-06-06] VITALS (8 sets, daily range): BP systolic 138–171; BP diastolic 47–76; PULSE 62–86; RESP 18; TEMP 36.1; O2SAT 96
[2024-06-06] MEDS: Acetaminophen 500 MG Tablet 1000 MG PO ×3 (05:30→20:23)
[2024-06-06] MEDS: hydrALAZINE 25 MG Tablet PO ×3 (05:31→20:24)
[2024-06-06] MEDS: Vancomycin HCl 750 MG in 0.9% Normal Saline (250mL Bag) 250 ML 250 MG IV ×2 (05:31→17:23)
[2024-06-06 06:41] LABS: Bedside Glucose 174 mg/dL (74-106)
[2024-06-06] MEDS: oxyCODONE 5 MG Tablet PO ×2 (07:56→18:12)
[2024-06-06] MEDS: Insulin Lispro 100 UNIT/ML INSULN.PEN 15 UNIT SC ×3 (08:01→17:23)
[2024-06-06] MEDS: Folic Acid 1 MG Tablet PO (08:02)
[2024-06-06] MEDS: Cyanocobalamin 500 MCG Tablet 1000 MCG PO (08:02)
[2024-06-06] MEDS: Aspirin 81 MG TAB.CHEW PO (08:02)
[2024-06-06] MEDS: Calcium Carb/Vitamin D 1 TABLET Tablet PO (08:02)
[2024-06-06] MEDS: Losartan Potassium 100 MG Tablet PO (08:03)
[2024-06-06] MEDS: Cholecalciferol (VIT D3) 25 MCG TABLET (1,000 UNITS) 50 MCG PO (08:03)
[2024-06-06] MEDS: Pantoprazole Sodium 20 MG Tablet PO (08:03)
[2024-06-06] MEDS: 0.9 % NaCl (Sterile) Posiflush 10 mL IV ×3 (08:04→12:11)
[2024-06-06] MEDS: Glucerna Shake 120 ML LIQUID PO ×3 (08:05→17:22)
[2024-06-06] MEDS: Ceftriaxone 2 GM in 0.9% Normal Saline (50mL MB+) 50 ML IV (10:25)
--- NOTE | 2024-06-06 10:54 | NURSING ---
BP elevated this morning and patient c/o severe pain. Nurse strongly encouraged PRN pain medication for pain in back and hips. Patient rating 8-9. Patient hesitant to take. Patient states does not want me to take. Encouraged patient to take for her comfort. Patient agreed to take only 1 tab of Oxy. Pain and BP improved after medication admin. Patient appreciative of care. Nursing explained to be more proactive with pain medication and to stay ahead of pain rather than reactive, playing catch up leading to pain being uncontrolled. Patient acknowledges and thanked nurse. No further needs. Call light within reach.
[2024-06-06] MEDS: Ferrous Sulfate 325 MG Tablet PO (12:10)
[2024-06-06 13:20] LABS: Bedside Glucose 140 mg/dL (74-106)
[2024-06-06 17:12] LABS: Bedside Glucose 164 mg/dL (74-106)
[2024-06-06] MEDS: 0.9% Saline Lock 10 ML Syringe IV ×2 (17:22→20:25)
--- NOTE | 2024-06-06 18:56 | NURSING ---
pt still having some speech difficulty at times since [place], expressive aphasia noted, speech consulted.
[2024-06-06] MEDS: cycloBENZAPRine HCl 10 MG Tablet PO (20:22)
[2024-06-06] MEDS: Senna/Docusate Sodium 1 Tablet 2 TABLET PO (20:23)
[2024-06-06] MEDS: Atorvastatin Calcium 40 MG Tablet PO (20:24)
[2024-06-06] MEDS: amLODIPine 10 MG Tablet PO (20:25)
[2024-06-07 05:53] VITALS: BP 167/59; PULSE 72
[2024-06-07 05:54] VITALS: PULSE 72
[2024-06-07] MEDS: hydrALAZINE 25 MG Tablet PO ×3 (05:54→20:50)
[2024-06-07] MEDS: cycloBENZAPRine HCl 10 MG Tablet PO ×2 (05:54→13:22)
[2024-06-07] MEDS: Acetaminophen 500 MG Tablet 1000 MG PO ×3 (05:54→20:51)
[2024-06-07] MEDS: Vancomycin HCl 750 MG in 0.9% Normal Saline (250mL Bag) 250 ML 250 MG IV ×2 (06:05→17:49)
[2024-06-07 06:51] LABS: Bedside Glucose 161 mg/dL (74-106)
[2024-06-07] MEDS: Insulin Lispro 100 UNIT/ML INSULN.PEN 15 UNIT SC ×2 (08:08→17:47)
[2024-06-07] MEDS: Losartan Potassium 100 MG Tablet PO (08:09)
[2024-06-07] MEDS: Aspirin 81 MG TAB.CHEW PO (08:09)
[2024-06-07] MEDS: Glucerna Shake 120 ML LIQUID PO ×3 (08:09→17:47)
[2024-06-07] MEDS: Cyanocobalamin 500 MCG Tablet 1000 MCG PO (08:10)
[2024-06-07] MEDS: Cholecalciferol (VIT D3) 25 MCG TABLET (1,000 UNITS) 50 MCG PO (08:10)
[2024-06-07] MEDS: Pantoprazole Sodium 20 MG Tablet PO (08:10)
[2024-06-07] MEDS: Calcium Carb/Vitamin D 1 TABLET Tablet PO (08:10)
[2024-06-07] MEDS: Folic Acid 1 MG Tablet PO (08:10)
[2024-06-07] MEDS: oxyCODONE 5 MG Tablet PO ×3 (08:12→20:51)
[2024-06-07] MEDS: Ceftriaxone 2 GM in 0.9% Normal Saline (50mL MB+) 50 ML IV (08:13)
[2024-06-07] MEDS: 0.9% Saline Lock 10 ML Syringe IV ×2 (08:13→17:55)
[2024-06-07 11:16] LABS: Bedside Glucose 103 mg/dL (74-106)
[2024-06-07 13:23] VITALS: PULSE 80
[2024-06-07] MEDS: Ferrous Sulfate 325 MG Tablet PO (13:23)
[2024-06-07 16:00] VITALS: BP 136/72; PULSE 60; RESP 14; TEMP 36.8; O2SAT 95
[2024-06-07 16:38] LABS: Bedside Glucose 152 mg/dL (74-106)
[2024-06-07 18:16] LABS: Absolute Neutrophil Count 6.6 X10^3/uL (2.0-7.7); Anion Gap 8 (5-15); BUN 19 mg/dL (7-18); BUN/Creat Ratio 21.2 RATIO (10-20); Basophil# 0.04 X10^3/uL; Basophil% 0.4 % (0-1); Calcium,Total 9.5 mg/dL (8.5-10.1); Chloride 102 mmol/L (98-107); EST Glomerular Filtration Rate 65 mL/min (>60); Eosinophils% 3.7 % (0-5); Est Glom Filt Rate - Afr Amer 78 mL/min (>60); Estimated Creatinine Clearance 57.74 ml/min; Glucose 142 mg/dL (74-106); Hematocrit 34.4 % (37-47); Hemoglobin 10.5 g/dL (12.0-15.0); Lymphocyte % 26.8 % (19-41); Mean Corp Hgb Conc 30.5 g/dL (32-36); Mean Corpuscular Hgb 27.5 pg (27.0-32.0); Mean Corpuscular Volume 90.1 fL (81-99); Mean Platelet Vol. 9.4 fl (6.2-12.0); Monocyte# 0.88 X10^3/uL; Monocyte% 8.1 % (0-10); NRBC Flagged by Analyzer 0 % (0-5); Neutrophil # 6.57 X10^3/uL (2.7-7.7); Neutrophil % 60.6 % (47-70); Platelet Count 252 K/mm3 (150-450); Potassium 4.1 mmol/L (3.5-5.1); RBC Distribution Width CV 14.6 % (11.6-14.6); RBC Distribution Width SD 47.7 fl (35.1-43.9); Red Blood Count 3.82 M/mm3 (4.2-5.4); Sodium Level 136 mmol/L (136-145); White Blood Count 10.8 K/mm3 (4.4-11.0)
[2024-06-07 20:50] VITALS: BP 167/53; PULSE 61
[2024-06-07] MEDS: amLODIPine 10 MG Tablet PO (20:50)
[2024-06-07 22:32] LABS: Mucous, Urine 0 SEEN /hpf (<or=2+); Red Blood Cells-Urine 0 SEEN /hpf (0-5)
[2024-06-07 22:33] LABS: Color, Urine Yellow (Yellow); Glucose, Dipstick Normal (Normal); Ketone-Dipstick Negative (Negative); Leukocyte Esterase-Dipstick Negative /ul (Negative); Nitrite-Dipstick Negative (Negative); Occult Blood-Urine 25 /ul (Negative); Protein-Dipstick 30 mg/dl (Negative); Urine Bilirubin Dipstick Negative (Negative); Urine Clarity Clear (Clear); Urine Urobilinogen Normal (Normal)
[2024-06-07 22:46] LABS: Bacteria RARE /hpf (None Seen); Squamous Epithelial Cells - UA 0-5 SEEN /hpf (5-10); White Blood Cells 5-10 SEEN /hpf (0-5)
[2024-06-08 06:29] LABS: Bedside Glucose 146 mg/dL (74-106)
[2024-06-08] MEDS: oxyCODONE 5 MG Tablet PO ×3 (06:51→22:04)
[2024-06-08] MEDS: Vancomycin HCl 750 MG in 0.9% Normal Saline (250mL Bag) 250 ML 250 MG IV ×2 (06:51→18:06)
[2024-06-08] MEDS: Acetaminophen 500 MG Tablet 1000 MG PO ×3 (06:51→22:04)
[2024-06-08 06:53] VITALS: BP 154/56; PULSE 66
[2024-06-08] MEDS: hydrALAZINE 25 MG Tablet PO ×3 (06:53→22:03)
[2024-06-08] MEDS: Insulin Lispro 100 UNIT/ML INSULN.PEN 15 UNIT SC ×3 (07:52→18:01)
[2024-06-08] MEDS: Losartan Potassium 100 MG Tablet PO (07:53)
[2024-06-08] MEDS: Folic Acid 1 MG Tablet PO (07:53)
[2024-06-08] MEDS: Cyanocobalamin 500 MCG Tablet 1000 MCG PO (07:53)
[2024-06-08] MEDS: Calcium Carb/Vitamin D 1 TABLET Tablet PO (07:53)
[2024-06-08] MEDS: Aspirin 81 MG TAB.CHEW PO (07:53)
[2024-06-08] MEDS: Cholecalciferol (VIT D3) 25 MCG TABLET (1,000 UNITS) 50 MCG PO (07:54)
[2024-06-08] MEDS: Pantoprazole Sodium 20 MG Tablet PO (07:54)
[2024-06-08] MEDS: Glucerna Shake 120 ML LIQUID PO ×3 (07:58→18:04)
--- NOTE | 2024-06-08 09:03 | NURSING ---
DR SEO MADE AWARE OF R' INCREASED CONFUSION THE PAST SEVERAL DAYS. N.O. MRI WITH CONTRAST.
--- NOTE | 2024-06-08 09:05 | CASEMGMT ---
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 See notes for details. Pt is scheduled to DC tomorrow. SW spoke directly to Dr. Mccracken to express concerns and provided examples. Dr. Mccracken and this worker communicated to nursing the order for an MRI of her brain. Once results are known, SW to speak with pt about concerns and request extended stay for ongoing treatment. SW will continue to follow. ADRIANA Stevens
[2024-06-08] MEDS: Methenamine Hippurate 1 GM Tablet PO ×2 (10:24→22:03)
[2024-06-08] MEDS: 0.9% Normal Saline (250mL Bag) 250 ML 15 ML IV (10:25)
[2024-06-08] MEDS: Ceftriaxone 2 GM in 0.9% Normal Saline (50mL MB+) 50 ML IV (10:25)
[2024-06-08] MEDS: 0.9 % NaCl (Sterile) Posiflush 10 mL IV ×2 (10:25→18:06)
[2024-06-08 11:11] LABS: Bedside Glucose 236 mg/dL (74-106)
[2024-06-08] MEDS: Ferrous Sulfate 325 MG Tablet PO (11:33)
[2024-06-08 12:00] VITALS: BMI 32.2
[2024-06-08 13:52] VITALS: BP 145/52; PULSE 64; RESP 18; TEMP 36.9; O2SAT 97
[2024-06-08 13:53] VITALS: PULSE 64
--- NOTE | 2024-06-08 14:05 | NURSING ---
Resident off floor to MRI.
[2024-06-08] MEDS: cycloBENZAPRine HCl 10 MG Tablet PO ×2 (17:00→22:17)
[2024-06-08 17:14] LABS: Bedside Glucose 155 mg/dL (74-106)
[2024-06-08 22:03] VITALS: BP 158/71; PULSE 71
[2024-06-08] MEDS: amLODIPine 10 MG Tablet PO (22:03)
[2024-06-09] VITALS (8 sets, daily range): BP systolic 129–185; BP diastolic 54–71; PULSE 65–84; RESP 16; TEMP 36.4; O2SAT 97
[2024-06-09 06:21] LABS: Bedside Glucose 131 mg/dL (74-106)
[2024-06-09] MEDS: hydrALAZINE 25 MG Tablet PO (06:24)
[2024-06-09] MEDS: Vancomycin HCl 750 MG in 0.9% Normal Saline (250mL Bag) 250 ML 250 MG IV (06:25)
[2024-06-09] MEDS: 0.9 % NaCl (Sterile) Posiflush 10 mL IV (06:25)
[2024-06-09] MEDS: Acetaminophen 500 MG Tablet 1000 MG PO ×3 (06:25→20:32)
[2024-06-09] MEDS: Insulin Lispro 100 UNIT/ML INSULN.PEN 15 UNIT SC ×3 (07:45→17:22)
[2024-06-09] MEDS: Glucerna Shake 120 ML LIQUID PO ×3 (07:50→17:07)
[2024-06-09] MEDS: Cholecalciferol (VIT D3) 25 MCG TABLET (1,000 UNITS) 50 MCG PO (07:51)
[2024-06-09] MEDS: Folic Acid 1 MG Tablet PO (07:51)
[2024-06-09] MEDS: Pantoprazole Sodium 20 MG Tablet PO (07:51)
[2024-06-09] MEDS: Methenamine Hippurate 1 GM Tablet PO ×2 (07:51→20:32)
[2024-06-09] MEDS: Aspirin 81 MG TAB.CHEW PO (07:51)
[2024-06-09] MEDS: Losartan Potassium 100 MG Tablet PO (07:51)
[2024-06-09] MEDS: Calcium Carb/Vitamin D 1 TABLET Tablet PO (07:51)
[2024-06-09] MEDS: Cyanocobalamin 500 MCG Tablet 1000 MCG PO (07:51)
[2024-06-09] MEDS: hydrALAZINE 50 MG Tablet PO ×2 (07:57→13:42)
[2024-06-09 08:24] LABS: Bacteria 0 SEEN /hpf (None Seen); Mucous, Urine 0 SEEN /hpf (<or=2+); Squamous Epithelial Cells - UA 0 SEEN /hpf (5-10); White Blood Cells 0 SEEN /hpf (0-5)
--- NOTE | 2024-06-09 08:30 | NURSING ---
dr lim notified of elevated BP, new order for x1 50mg hydralazine now. Urine obtained via st cath, clear yellow 300cc. pt speech difficult to understand, word finding diff and words not in right order in sentence at times. pt alert and oriented. immobilizer readjusted on knee. knee & old hip incision w/out redness or s/s infection.
[2024-06-09 08:34] LABS: Color, Urine Yellow (Yellow); Glucose, Dipstick Normal (Normal); Ketone-Dipstick Negative (Negative); Leukocyte Esterase-Dipstick Negative /ul (Negative); Nitrite-Dipstick Negative (Negative); Occult Blood-Urine 50 /ul (Negative); Protein-Dipstick 30 mg/dl (Negative); Specific Gravity, Urine 1.015 (1.002-1.030); Urine Bilirubin Dipstick Negative (Negative); Urine Clarity Sl. Cloudy (Clear); Urine Urobilinogen Normal (Normal)
[2024-06-09 08:49] LABS: Red Blood Cells-Urine 0-5 SEEN /hpf (0-5)
--- NOTE | 2024-06-09 08:58 | CASEMGMT ---
Addendum entered by Marcia Ayoub 06/09/24 16:25: Sw spoke with Dr. Mccracken and he is adding a blood pressure medication. Requesting another day to monitor BP. SW spoke with pt and at bedside to update. Both agreeable. IDT updated. Addendum entered by Marcia Ayoub 06/09/24 10:28: SW spoke with pt and at bedside. Explained the below information to the pt. Pt is disappointed, but is agreeable to remain today to get outcome of testing and Dr. Bowden. SW to follow with nursing and discuss new DC with pt when is cleared. Requested this worker to coordinate skilled HHC now at DC to follow. Pt agreeable. SW will continue to follow. Original Note: Social Work IDT remains concerned with pt's change in mental status. Per Dr, MRI showed old stroke, not new stroke. Per nursing, pt has an elevated BP and checking u/a again, and discussing with ID Dr on changes. D/t to changes and increased risk for readmission, IDT postponing DC today. SW phoned to explain above. expressed understanding, though, know pt will be disappointed. SW understands and will follow up with pt as well. IDT to keep pt and updated on results. appreciative. SW will continue to follow. Marcia Ayoub, ADRIANA DUNBARW
--- NOTE | 2024-06-09 10:41 | NURSING ---
Called [facility] to follow-up about cardiac event monitor for after DC. Monitor will be sent to her house, she will wear for 14 days. Any notable cardiac events will be sent to her PCP. Updated resident and .
--- NOTE | 2024-06-09 11:02 | NURSING ---
dr Bowden returned call, reviewed pts labs, pt & concerns, pt symptoms, elevated BP. no new orders at this time, did confirm that pt IV ATB's DC 06/08/24. states he will be arriving to [facility] in about 1 hour and will review pt chart. pt & updated.
[2024-06-09] MEDS: Ferrous Sulfate 325 MG Tablet PO (12:02)
[2024-06-09 12:22] LABS: Bedside Glucose 130 mg/dL (74-106)
[2024-06-09 16:55] LABS: Bedside Glucose 135 mg/dL (74-106)
[2024-06-09] MEDS: cloNIDine HCl 0.1 MG Tablet PO (17:07)
--- NOTE | 2024-06-09 17:33 | NURSING ---
pt speech much improved since this AM, no slurring or diff finding words tonight. pt states that she was taking lisinopril QAM and amlodipine QHS at home & now feels like this may be why her BPs have been elevated. She believes lisinopril with DC'd d/t increased edema in legs earlier in stay. will update dr lim.
[2024-06-09] MEDS: amLODIPine 10 MG Tablet PO (18:56)
--- NOTE | 2024-06-09 19:02 | NURSING ---
Addendum entered by Hedy Chan 06/09/24 19:08: dr lim dc'd clonidine, hydralazine and losartaan per pt request. Original Note: dr lim updated on pt concerns regarding home medication lisinopril and being so sensitive to other medications. dr lim restarted lisinopril 40mg per home regimen. rechecked BP 129/54 HR 75 gave amlodipine early per dr lim order. pt very appreciative & feels being back on lisinopril will change her BP readings, pt states she has been on it for years.
[2024-06-09] MEDS: Senna/Docusate Sodium 1 Tablet 2 TABLET PO (20:32)
[2024-06-10] MEDS: Acetaminophen 500 MG Tablet 1000 MG PO ×3 (06:11→21:44)
[2024-06-10 06:13] VITALS: BP 155/64; PULSE 70
[2024-06-10 06:42] LABS: Bedside Glucose 168 mg/dL (74-106)
[2024-06-10] MEDS: Insulin Lispro 100 UNIT/ML INSULN.PEN 15 UNIT SC ×2 (08:24→12:03)
[2024-06-10] MEDS: Glucerna Shake 120 ML LIQUID PO ×3 (08:24→17:33)
[2024-06-10] MEDS: Folic Acid 1 MG Tablet PO (08:27)
[2024-06-10] MEDS: Aspirin 81 MG TAB.CHEW PO (08:27)
[2024-06-10] MEDS: Calcium Carb/Vitamin D 1 TABLET Tablet PO (08:27)
[2024-06-10] MEDS: Lisinopril 40 MG Tablet PO (08:27)
[2024-06-10] MEDS: Cyanocobalamin 500 MCG Tablet 1000 MCG PO (08:27)
[2024-06-10] MEDS: Cholecalciferol (VIT D3) 25 MCG TABLET (1,000 UNITS) 50 MCG PO (08:27)
[2024-06-10] MEDS: Pantoprazole Sodium 20 MG Tablet PO (08:27)
[2024-06-10] MEDS: Methenamine Hippurate 1 GM Tablet PO ×2 (08:27→21:43)
[2024-06-10 10:36] VITALS: BP 132/58; PULSE 69; RESP 18; TEMP 36.6; O2SAT 97
[2024-06-10 11:26] LABS: Bedside Glucose 136 mg/dL (74-106)
[2024-06-10] MEDS: Ferrous Sulfate 325 MG Tablet PO (12:03)
--- NOTE | 2024-06-10 13:58 | NURSING ---
Sitting in chair watching tv. Scheduled Tylenol given. No further needs.
--- NOTE | 2024-06-10 16:07 | CASEMGMT ---
Social Work SW spoke with who stated BP is controlled and can DC home tomorrow, 06/11. Pt is seeing Dr. Casillas for follow up tomorrow and he can order OP PT, if indicated. Dr Mccracken is okay with pt following up with PCP for BP/nursing needs. SABINE spoke with pt at bedside to update on DC 06/11 and no HHC or OP therapy ordered at this time. pt agreed. to transport. IDT updated. Plan: DC home with 06/11, no needs ADRIANA Stevens [id number] DEVELOPER
--- NOTE | 2024-06-10 16:09 | CASEMGMT ---
Social Work BIMS () and PHQ-2 () completed for MDS assessment. Marcia Ayoub MSW COMPLIANCE MGR
[2024-06-10 17:21] LABS: Bedside Glucose 122 mg/dL (74-106)
[2024-06-10 21:42] VITALS: BP 166/74; PULSE 69; O2SAT 97
[2024-06-10] MEDS: amLODIPine 10 MG Tablet PO (21:44)
[2024-06-10] MEDS: Senna/Docusate Sodium 1 Tablet 2 TABLET PO (21:44)
[2024-06-10] MEDS: 0.9% Saline Lock 10 ML Syringe IV (23:58)
[2024-06-10 23:59] VITALS: BP 156/64; PULSE 70; O2SAT 97
[2024-06-11] MEDS: cycloBENZAPRine HCl 10 MG Tablet PO (05:33)
[2024-06-11] MEDS: Acetaminophen 500 MG Tablet 1000 MG PO (05:46)
[2024-06-11 06:37] LABS: Bedside Glucose 172 mg/dL (74-106)
[2024-06-11] MEDS: Insulin Lispro 100 UNIT/ML INSULN.PEN 15 UNIT SC (07:44)
[2024-06-11] MEDS: Glucerna Shake 120 ML LIQUID PO (07:46)
[2024-06-11] MEDS: Pantoprazole Sodium 20 MG Tablet PO (07:47)
[2024-06-11] MEDS: Cyanocobalamin 500 MCG Tablet 1000 MCG PO (07:47)
[2024-06-11] MEDS: Folic Acid 1 MG Tablet PO (07:47)
[2024-06-11] MEDS: Aspirin 81 MG TAB.CHEW PO (07:47)
[2024-06-11] MEDS: Calcium Carb/Vitamin D 1 TABLET Tablet PO (07:47)
[2024-06-11] MEDS: Cholecalciferol (VIT D3) 25 MCG TABLET (1,000 UNITS) 50 MCG PO (07:48)
[2024-06-11] MEDS: Methenamine Hippurate 1 GM Tablet PO (07:49)
[2024-06-11] MEDS: Lisinopril 40 MG Tablet PO (07:49)
--- NOTE | 2024-06-11 10:27 | NURSING ---
PICC removed from RUE while resident laying flat in bed, tolerated fine. Removed with no complications, 40cm length, tip intact. Pressure applied for a couple minutes with sterile gauze, no bleeding. Site covered with petroleum ointment, sterile gauze and tegaderm. Instructed resident to leave dressing in place for at least 24 hours.
== END 2024-06-11 11:00 | disposition home or self-care (01) | DRG 949 ==
PROVIDERS: Internal Medicine Infectious Disease; Admitting Provider Family Medicine Geriatric Medicine; PCP Internal Medicine; Referring Provider Family Medicine Geriatric Medicine; Visit Provider Family Medicine Geriatric Medicine
DX: T84.54XD Infection and inflammatory reaction due to internal left knee prosthesis, subsequent encounter (principal); R47.01 Aphasia; E11.40 Type 2 diabetes mellitus with diabetic neuropathy, unspecified; D50.9 Iron deficiency anemia, unspecified; E11.65 Type 2 diabetes mellitus with hyperglycemia; E11.39 Type 2 diabetes mellitus with other diabetic ophthalmic complication; I10 Essential (primary) hypertension; G31.9 Degenerative disease of nervous system, unspecified; I08.1 Rheumatic disorders of both mitral and tricuspid valves; E53.8 Deficiency of other specified B group vitamins; E55.9 Vitamin D deficiency, unspecified; Z79.4 Long term (current) use of insulin; K21.9 Gastro-esophageal reflux disease without esophagitis; E78.5 Hyperlipidemia, unspecified; Z87.440 Personal history of urinary (tract) infections; H40.9 Unspecified glaucoma; R33.9 Retention of urine, unspecified; Y79.2 Prosthetic and other implants, materials and accessory orthopedic devices associated with adverse incidents; Z79.899 Other long term (current) drug therapy; Z23 Encounter for immunization; R47.1 Dysarthria and anarthria; Z86.73 Personal history of transient ischemic attack (TIA), and cerebral infarction without residual deficits
CPT/HCPCS: 36415; 73562; 80048; 80202; 81001; 82565; 82962; 83540; 83735; 85025; 85652; 87086; 87088; 87811; 90480; 90662; 91322; 92507; 92523; 92610; 97110; 97116; 97162; 97165; 97530; 97535; 97802; J2997; J7050; A4216; J0696

== ENCOUNTER → 2024-06-04 | Outpatient (CLI) | payer MEDICARE, OTHER, SELFPAY ==
--- NOTE | 2024-06-04 10:55 | CT_ITS ---
STUDY: CTA HEAD AND NECK WITH CONTRAST REASON FOR EXAM: Female, 78 years old. R/O STROKE RADIATION DOSAGE (If Supplied By Facility): CTDIvol = ( 25.45 ) mGy, DLP = ( 1449.84 ) mGycm TECHNIQUE: CT angiography was performed with a multi-detector CT scanner. Data acquisition was obtained from the skull base through the vertex following intravenous administration of IV 100mL Isovue-370. MIP images were reconstructed from the axial data set. Post-processing of the angiographic images was performed, with multiplanar reformation and 3D reconstruction. Individualized dose optimization techniques were used for this CT. COMPARISON: No relevant priors. FINDINGS: Normal bilateral petrous carotid arteries. There is calcified plaque formation of the right cavernous carotid artery, without a cross-sectional luminal stenosis. There is calcified plaque formation of the left cavernous carotid artery, without a cross-sectional luminal stenosis. Normal right A1 segments of the anterior cerebral artery. Normal left A1 segments of the anterior cerebral artery. Normal intact anterior communicating artery (ACOM). Normal bilateral A2 segments of the anterior cerebral arteries. Normal right M1 and M2 segments of the middle cerebral arteries, with a normal M1 bifurcation. Normal left M1 and M2 segments of the middle cerebral arteries, with a normal M1 bifurcation. Normal right posterior communicating artery (PCOM). Normal left posterior communicating artery (PCOM). Normal bilateral vertebral arteries. Normal basilar artery with a normal basilar bifurcation. The visualized bilateral superior cerebellar (SCA) arteries are normal. Normal bilateral P1, P2 and visualized P3 segments of the posterior cerebral arteries. There is no demonstrated aneurysm of the [place] of [place]. Moderate degree of cerebral atrophy. There is evidence of an old lacunar infarct in the insular cortex of the right temporal lobe. A right-sided central line is seen. Heterogeneous enlargement of the thyroid gland involving both lobes more prominent on the right side as well as the isthmus. AORTIC ARCH: There is atherosclerotic calcific plaque formation of the aortic arch and great vessels arising from the aortic arch, without a hemodynamically significant stenosis. There is a normal origin of the brachiocephalic, left common carotid, and left subclavian arteries. RIGHT CAROTID ARTERIES: Normal right common carotid artery (CCA). Normal right common carotid bulb. Normal origin of the right internal carotid (ICA) artery without a hemodynamically significant stenosis. Normal visualized cervical portion of the right internal carotid artery. Normal origin of the right external carotid artery (ECA). LEFT CAROTID ARTERIES: Normal left common carotid artery (CCA). Normal left common carotid bulb. There is mild atherosclerotic plaque formation of the origin of the left internal carotid artery with less than 50% cross sectional diameter stenosis. Normal visualized cervical portion of the left internal carotid artery. Normal origin of the left external carotid artery (ECA). VERTEBRAL ARTERIES: Normal bilateral vertebral arteries. CT/CTA Head AND Neck W/ Contrast IMPRESSION: Cerebral atrophy. Old lacunar infarct in the insular cortex of the right temporal lobe. Electronically Signed: Thomas Bhatt MD at 11:29 EDT ,
== END | disposition home or self-care (01) ==
LOC: CT 10:53
PROVIDERS: PCP Internal Medicine; Referring Provider Internal Medicine; Visit Provider Internal Medicine
DX: I70.0 Atherosclerosis of aorta (principal); G31.9 Degenerative disease of nervous system, unspecified; Z86.73 Personal history of transient ischemic attack (TIA), and cerebral infarction without residual deficits
CPT/HCPCS: 70496; 70498; Q9967

== ENCOUNTER → 2024-06-07 | Outpatient (CLI) | payer MEDICARE, OTHER, SELFPAY ==
--- NOTE | 2024-06-07 09:46 | ECHOD_ITS ---
Version 2 Reason For Study: TIA/CVA Procedure This was a 2D Doppler, Color Flow transthoracic echocardiogram. Portable in TCU. Left Ventricle Normal LV size. Left ventricular systolic function is normal. The left ventricular ejection fraction is 65 %. Stage 1 diastolic dysfunction. No regional wall motion abnormalities noted. Right Ventricle Normal RV size. Normal systolic function. Atria The left atrium is mildly enlarged. Normal right atrium. Mitral Valve Normal mitral valve. Tricuspid Valve Normal tricuspid valve. Mild to moderate (1-2+) tricuspid valve insufficiency. Pulmonary artery systolic pressure is 39 mmHg. Aortic Valve Trisinus/trileaflet aortic valve. Mild focal aortic valve calcification. Pulmonic Valve Normal pulmonic valve. Great Vessels Normal aortic root. The pulmonary artery is normal size. Normal inferior vena cava. Pericardium/Pleural No pericardial effusion. MMode/2D Measurements & Calculations LVIDd: 5.0 cm IVSd: 1.0 cm LVOT diam: 2.1 cm LVIDs: 3.6 cm LVPWd: 0.96 cm LVOT area: 3.4 cm2 RVDd: 3.3 cm FS: 28.2 % Ao root diam: 3.2 cm asc Aorta Diam: 3.0 cm LAV(MOD-bp): 84.8 ml LA dimension: 4.2 cm LAV(MOD-bp) Indexed: 43.3 ml/m2 LAV(MOD-sp2): 81.9 ml LAV(MOD-sp4): 81.0 ml TAPSE: 2.4 cm LA A4 area: 25.3 cm2 RA A4 area: 19.5 cm2 Time Measurements MV dec time: 0.23 sec Doppler Measurements & Calculations MV E max rodriguez: 90.1 cm/sec Lat Peak E' Rodriguez: 13.7 cm/sec Med Peak E' Rodriguez: 11.1 cm/sec MV A max rodriguez: 103.1 cm/sec E/E' lat: 6.6 E/E' med: 8.1 MV E/A: 0.87 MV V2 max: 114.1 cm/sec MV P1/2t max rodriguez: 105.9 cm/sec Ao V2 max: 189.8 cm/sec MV max P.2 mmHg MV P1/2t: 74.1 msec Ao max P.4 mmHg MV V2 mean: 63.9 cm/sec MV dec slope: 418.5 cm/sec2 Ao V2 mean: 129.9 cm/sec MV mean P.9 mmHg Ao mean P.7 mmHg MV V2 VTI: 37.3 cm MVA(P1/2t): 3.0 cm2 Ao V2 VTI: 40.1 cm MVA(VTI): 2.6 cm2 AV (velocity ratio): 0.70 KOKO(I,D): 2.4 cm2 KOKO(V,D): 2.2 cm2 LV V1 max: 121.3 cm/sec SV(LVOT): 96.7 ml PA V2 max: 102.0 cm/sec LV V1 max P.9 mmHg PA max PG (full): 1.2 mmHg LV V1 mean P.3 mmHg LV V1 mean: 85.6 cm/sec LV V1 VTI: 28.1 cm TR max rodriguez: 299.3 cm/sec TR max P.8 mmHg ECHO/Echo Complete Interpretation Summary Normal LV size. Left ventricular systolic function is normal. The left ventricular ejection fraction is 65 %. Mild focal aortic valve calcification. Stage 1 diastolic dysfunction. Mild to moderate (1-2+) tricuspid valve insufficiency. The left atrium is mildly enlarged. Ordering Physician: Hedy Dobbins Referring Physician: Hedy Dobbins Performed By: Jose Francisco Jason and Student
== END | disposition home or self-care (01) ==
LOC: CVS 09:45
PROVIDERS: PCP Internal Medicine; Referring Provider Internal Medicine; Visit Provider Internal Medicine
DX: I63.9 Cerebral infarction, unspecified (principal); I07.9 Rheumatic tricuspid valve disease, unspecified; I70.0 Atherosclerosis of aorta
CPT/HCPCS: 93306

== ENCOUNTER → 2024-06-08 | Outpatient (CLI) | payer MEDICARE, OTHER, SELFPAY ==
--- NOTE | 2024-06-08 14:24 | MRI_ITS ---
STUDY: MRI BRAIN WITH AND WITHOUT CONTRAST REASON FOR EXAM: Female, 78 years old. INCREASED CONFUSION TECHNIQUE: Standardized multiplanar fat and water weighted pulse sequences were obtained. IV 17CC CLARISCAN was administered for the contrast portion of the examination. COMPARISON: None. FINDINGS: Mild atrophy and periventricular white matter ischemic change without mass effect or restricted diffusion. Old lacunar infarct in right basal ganglia. Normal thalami. There is no extra-axial fluid accumulation. Normal flow voids within the major intracranial circulation suggesting patency by spin echo criteria. Normal venous enhancement. There is no enhancing intra-axial or extra-axial abnormality. Normal sella turcica, pituitary gland, infundibular stalk, optic chiasm and hypothalamus. Normal tectal plate and pineal gland. Normal midbrain, mike and medulla. Normal cerebellum. Normal basal cisterns. Normal bilateral temporal bones. Normal bilateral internal auditory canals. Postsurgical changes of the orbits. Mucosal retention cyst left maxillary sinus. Normal calvarium and skull base. Normal visualized soft tissue structures. Normal visualized upper cervical spine. MRI/Brain W/WO Contrast IMPRESSION: Mild atrophy and periventricular white matter ischemic change without evidence for acute infarct Old right lacunar infarct. Electronically Signed: Ilia Laughlin MD at 16:22 EDT ,
== END | disposition home or self-care (01) ==
LOC: MRI 14:23
PROVIDERS: PCP Internal Medicine; Referring Provider Family Medicine Geriatric Medicine; Visit Provider Family Medicine Geriatric Medicine
DX: R41.0 Disorientation, unspecified (principal)
CPT/HCPCS: 70553; A9575; A4216

== ENCOUNTER → 2024-06-11 | Outpatient (CLI) | payer MEDICARE, OTHER, SELFPAY ==
[2024-06-11 17:48] LABS: Absolute Lymphocyte Count 3.01 X10^3/uL (0.83-4.51); Absolute Neutrophil Count 6.8 X10^3/uL (2.0-7.7); Basophil# 0.04 X10^3/uL; Basophil% 0.4 % (0-1); Eosinophil# 0.32 X10^3/uL; Eosinophils% 2.9 % (0-5); Hemoglobin 10.1 g/dL (12.0-15.0); Lymphocyte # 3.01 X10^3/ul (0.83-4.51); Lymphocyte % 27.3 % (19-41); Mean Corp Hgb Conc 30.6 g/dL (32-36); Mean Corpuscular Hgb 27.2 pg (27.0-32.0); Mean Corpuscular Volume 88.7 fL (81-99); Mean Platelet Vol. 9.9 fl (6.2-12.0); Monocyte# 0.77 X10^3/uL; NRBC Flagged by Analyzer 0 % (0-5); Neutrophil % 61.8 % (47-70); Platelet Count 271 K/mm3 (150-450); RBC Distribution Width CV 14.6 % (11.6-14.6); RBC Distribution Width SD 47.1 fl (35.1-43.9); Red Blood Count 3.72 M/mm3 (4.2-5.4)
[2024-06-11 18:03] LABS: Erythrocyte Sedimentation Rate 34 mm/hr (0-30)
== END | disposition home or self-care (01) ==
LOC: MTLAB 15:59
PROVIDERS: PCP Internal Medicine; Referring Provider Specialist; Visit Provider Specialist
DX: T84.54XD Infection and inflammatory reaction due to internal left knee prosthesis, subsequent encounter (principal); Z96.652 Presence of left artificial knee joint
CPT/HCPCS: 36415; 85025; 85652; 86140

== ENCOUNTER → 2024-06-25 | Outpatient (CLI) | payer MEDICARE, OTHER, SELFPAY ==
[2024-06-25 15:20] LABS: Color, Urine Yellow (Yellow); Glucose, Dipstick Normal (Normal); Ketone-Dipstick Negative (Negative); Leukocyte Esterase-Dipstick 500 /ul (Negative); Nitrite-Dipstick Negative (Negative); Occult Blood-Urine 150 /ul (Negative); Protein-Dipstick 100 mg/dl (Negative); Specific Gravity, Urine 1.025 (1.002-1.030); Urine Bilirubin Dipstick Negative (Negative); Urine Clarity Cloudy (Clear); Urine Urobilinogen Normal (Normal)
[2024-06-25 15:38] LABS: Absolute Lymphocyte Count 2.93 X10^3/uL (0.83-4.51); Absolute Neutrophil Count 6.7 X10^3/uL (2.0-7.7); Basophil# 0.04 X10^3/uL; Basophil% 0.4 % (0-1); Eosinophils% 3.7 % (0-5); Hematocrit 37.1 % (37-47); Hemoglobin 11.1 g/dL (12.0-15.0); Lymphocyte # 2.93 X10^3/ul (0.83-4.51); Lymphocyte % 26.9 % (19-41); Mean Corp Hgb Conc 29.9 g/dL (32-36); Mean Corpuscular Hgb 27.3 pg (27.0-32.0); Mean Corpuscular Volume 91.2 fL (81-99); Mean Platelet Vol. 10.3 fl (6.2-12.0); Monocyte# 0.81 X10^3/uL; Monocyte% 7.4 % (0-10); NRBC Flagged by Analyzer 0 % (0-5); Neutrophil # 6.66 X10^3/uL (2.7-7.7); Platelet Count 292 K/mm3 (150-450); RBC Distribution Width CV 14.6 % (11.6-14.6); RBC Distribution Width SD 49.5 fl (35.1-43.9); Red Blood Count 4.07 M/mm3 (4.2-5.4); White Blood Count 10.9 K/mm3 (4.4-11.0)
[2024-06-25 15:42] LABS: Albumin, Serum 3.7 g/dL (3.2-5.0); Anion Gap 8 (5-15); BUN 27 mg/dL (7-18); BUN/Creat Ratio 26.5 RATIO (10-20); Calcium,Total 9.8 mg/dL (8.5-10.1); Chloride 103 mmol/L (98-107); Creatinine, Serum 1.02 mg/dL (0.55-1.02); EST Glomerular Filtration Rate 56 mL/min (>60); Est Glom Filt Rate - Afr Amer 67 mL/min (>60); Glucose 208 mg/dL (74-106); Potassium 4.2 mmol/L (3.5-5.1); Sodium Level 134 mmol/L (136-145)
[2024-06-25 15:53] LABS: Erythrocyte Sedimentation Rate 40 mm/hr (0-30)
== END | disposition home or self-care (01) ==
LOC: MTLAB 11:36
PROVIDERS: PCP Internal Medicine; Referring Provider Specialist; Visit Provider Specialist
DX: Z01.818 Encounter for other preprocedural examination (principal); E11.9 Type 2 diabetes mellitus without complications; Z96.652 Presence of left artificial knee joint; T84.54XD Infection and inflammatory reaction due to internal left knee prosthesis, subsequent encounter
CPT/HCPCS: 36415; 80048; 81002; 82040; 83036; 85025; 85652; 86140; 87081

== ENCOUNTER → 2024-06-28 | Outpatient (CLI) | payer MEDICARE, OTHER, SELFPAY ==
[2024-06-28 16:01] LABS: Mucous, Urine 0 SEEN /hpf (<or=2+)
[2024-06-28 18:54] LABS: Color, Urine Yellow (Yellow); Glucose, Dipstick Normal (Normal); Ketone-Dipstick Negative (Negative); Leukocyte Esterase-Dipstick 500 /ul (Negative); Nitrite-Dipstick Negative (Negative); Occult Blood-Urine 150 /ul (Negative); Protein-Dipstick 30 mg/dl (Negative); Specific Gravity, Urine 1.015 (1.002-1.030); Urine Bilirubin Dipstick Negative (Negative); Urine Clarity Cloudy (Clear); Urine Urobilinogen Normal (Normal)
[2024-06-28 19:01] LABS: White Blood Cells >100 SEEN /hpf (0-5)
[2024-06-28 19:02] LABS: Bacteria 1+ /hpf (None Seen); Red Blood Cells-Urine 0-5 SEEN /hpf (0-5); Squamous Epithelial Cells - UA 10-25 SEEN /hpf (5-10)
== END | disposition home or self-care (01) ==
PROVIDERS: PCP Internal Medicine; Referring Provider Internal Medicine Infectious Disease; Visit Provider Internal Medicine Infectious Disease
DX: N39.0 Urinary tract infection, site not specified (principal)
CPT/HCPCS: 81001; 87077; 87086; 87088; 87186

== ENCOUNTER → 2024-07-07 | Outpatient (CLI) | payer MEDICARE, OTHER, SELFPAY ==
[2024-07-07 15:33] LABS: Mucous, Urine 0 SEEN /hpf (<or=2+)
[2024-07-07 17:33] LABS: Color, Urine Yellow (Yellow); Glucose, Dipstick Normal (Normal); Ketone-Dipstick Negative (Negative); Leukocyte Esterase-Dipstick 100 /ul (Negative); Nitrite-Dipstick Negative (Negative); Occult Blood-Urine 150 /ul (Negative); Protein-Dipstick 30 mg/dl (Negative); Urine Bilirubin Dipstick Negative (Negative); Urine Clarity Sl. Cloudy (Clear); Urine Urobilinogen Normal (Normal)
[2024-07-07 18:02] LABS: White Blood Cells 10-25 SEEN /hpf (0-5)
[2024-07-07 18:03] LABS: Red Blood Cells-Urine 0-5 SEEN /hpf (0-5); Squamous Epithelial Cells - UA 5-10 SEEN /hpf (5-10)
[2024-07-07 18:06] LABS: Bacteria 1+ /hpf (None Seen)
== END | disposition home or self-care (01) ==
LOC: MTLAB 15:15
PROVIDERS: PCP Internal Medicine; Referring Provider Internal Medicine Infectious Disease; Visit Provider Internal Medicine Infectious Disease
DX: N39.0 Urinary tract infection, site not specified (principal)
CPT/HCPCS: 81001; 87086; 87088

== ENCOUNTER → 2024-07-20 | Outpatient (CLI) | payer MEDICARE, OTHER, SELFPAY ==
[2024-07-20 12:24] LABS: Absolute Lymphocyte Count 3.21 X10^3/uL (0.83-4.51); Absolute Neutrophil Count 5.5 X10^3/uL (2.0-7.7); Basophil# 0.04 X10^3/uL; Basophil% 0.4 % (0-1); Eosinophil# 0.31 X10^3/uL; Eosinophils% 3.2 % (0-5); Hematocrit 37.1 % (37-47); Hemoglobin 11.5 g/dL (12.0-15.0); Lymphocyte # 3.21 X10^3/ul (0.83-4.51); Lymphocyte % 32.9 % (19-41); Mean Corpuscular Volume 90.3 fL (81-99); Mean Platelet Vol. 10.4 fl (6.2-12.0); Monocyte# 0.68 X10^3/uL; NRBC Flagged by Analyzer 0 % (0-5); Neutrophil # 5.49 X10^3/uL (2.7-7.7); Neutrophil % 56.1 % (47-70); Platelet Count 277 K/mm3 (150-450); RBC Distribution Width CV 14.8 % (11.6-14.6); RBC Distribution Width SD 49.1 fl (35.1-43.9); Red Blood Count 4.11 M/mm3 (4.2-5.4); White Blood Count 9.8 K/mm3 (4.4-11.0)
[2024-07-20 12:45] LABS: ALB/GLOB Ratio 0.9 RATIO (0.9-2.4); AST(SGOT) 15 U/L (15-37); Alanine Aminotransfer ALT/SGPT 18 U/L (13-56); Albumin, Serum 3.6 g/dL (3.2-5.0); Alkaline Phosphatase 91 U/L (45-117); Anion Gap 8 (5-15); BUN 26 mg/dL (7-18); BUN/Creat Ratio 29.1 RATIO (10-20); Calcium,Total 9.3 mg/dL (8.5-10.1); Chloride 107 mmol/L (98-107); Cholesterol 164 mg/dL (200); Creatinine, Serum 0.89 mg/dL (0.55-1.02); EST Glomerular Filtration Rate 65 mL/min (>60); Est Glom Filt Rate - Afr Amer 78 mL/min (>60); Globulin 4.2 g/dL (2.2-4.2); Glucose 152 mg/dL (74-106); High Density Lipoprotein 48 mg/dL; Potassium 4.6 mmol/L (3.5-5.1); Protein, Total 7.8 g/dL (6.4-8.2); Sodium Level 138 mmol/L (136-145); Triglycerides 228 mg/dL; Very Low Density Lipoprotein 46 mg/dL (5-40)
== END | disposition home or self-care (01) ==
LOC: MTLAB 10:32
PROVIDERS: PCP Internal Medicine; Referring Provider Internal Medicine; Visit Provider Internal Medicine
DX: I10 Essential (primary) hypertension (principal); E11.9 Type 2 diabetes mellitus without complications
CPT/HCPCS: 36415; 80053; 80061; 85025

== ENCOUNTER → 2024-07-27 | Outpatient (CLI) | payer MEDICARE, OTHER, SELFPAY ==
[2024-07-27 07:43] LABS: Erythrocyte Sedimentation Rate 28 mm/hr (0-30)
[2024-07-27 07:46] LABS: Absolute Lymphocyte Count 2.56 X10^3/uL (0.83-4.51); Absolute Neutrophil Count 5.7 X10^3/uL (2.0-7.7); Basophil# 0.03 X10^3/uL; Basophil% 0.3 % (0-1); Eosinophil# 0.41 X10^3/uL; Eosinophils% 4.3 % (0-5); Hematocrit 33.4 % (37-47); Hemoglobin 10.4 g/dL (12.0-15.0); Lymphocyte # 2.56 X10^3/ul (0.83-4.51); Mean Corp Hgb Conc 31.1 g/dL (32-36); Mean Corpuscular Hgb 27.7 pg (27.0-32.0); Mean Corpuscular Volume 88.8 fL (81-99); Mean Platelet Vol. 10.6 fl (6.2-12.0); Monocyte% 8.4 % (0-10); NRBC Flagged by Analyzer 0 % (0-5); Neutrophil # 5.65 X10^3/uL (2.7-7.7); Neutrophil % 59.6 % (47-70); Platelet Count 212 K/mm3 (150-450); RBC Distribution Width CV 14.9 % (11.6-14.6); Red Blood Count 3.76 M/mm3 (4.2-5.4); White Blood Count 9.5 K/mm3 (4.4-11.0)
--- NOTE | 2024-07-27 13:31 | STRESSREP ---
Stress Test Report Pharmacologic myocardial perfusion stress test. 78-year-old lady with a history of atrial fibrillation for preop evaluation Resting EKG demonstrates sinus rhythm with a rate of 65 bpm. Resting blood pressure is 150/80 mmHg. 0.4 mg of regadenoson was infused per usual protocol followed by rapid intravenous saline flush injection. Continuous EKG monitoring was performed. The maximum heart rate was 79 bpm which was 55% of max impacted heart rate the maximum workload was 1 metabolic equivalent. At rest there were no ST or T wave changes noted to suggest ischemia and at peak infusion nonspecific ST changes were noted which did not meet the criteria for ischemia. No clinical angina is noted. The final blood pressure was 138/80 mmHg. Myocardial perfusion protocol. 11.5 mCi of technetium 99m sestamibi was injected at rest. 0.4 mg of regadenoson was infused per usual protocol. At peak infusion 33.9 mCi of technetium 99m sestamibi was injected stress images were obtained stress and rest images were reconstructed and compared in the short axis vertical long and horizontal long axis. Gated images were also obtained. Perfusion SPECT analysis: Review of the stress images demonstrate normal uptake of tracer noted in all areas of the myocardium. The resting images similar demonstrated normal uptake of tracer noted in all areas of the myocardium. No areas of reversibility are noted to suggest ischemia and no previous infarct is noted. Gated SPECT analysis: The gated ejection fraction is 82%. Conclusion: Normal pharmacologic myocardial perfusion stress test. Preserved ejection fraction.
== END | disposition home or self-care (01) ==
PROVIDERS: PCP Internal Medicine; Referring Provider Internal Medicine Cardiovascular Disease; Visit Provider Internal Medicine Cardiovascular Disease
DX: I10 Essential (primary) hypertension (principal); I48.91 Unspecified atrial fibrillation; E11.9 Type 2 diabetes mellitus without complications; T84.54XD Infection and inflammatory reaction due to internal left knee prosthesis, subsequent encounter; Z01.810 Encounter for preprocedural cardiovascular examination
CPT/HCPCS: 36415; 78452; 85025; 85652; 86140; 93017; A9500; A4216; J2785

== ENCOUNTER 2024-08-16 14:20 | Inpatient (IN) | payer MEDICARE, OTHER, SELFPAY ==
[2024-08-09 17:33] LABS: Absolute Lymphocyte Count 3.26 X10^3/uL (0.83-4.51); Absolute Neutrophil Count 6.1 X10^3/uL (2.0-7.7); Basophil# 0.03 X10^3/uL; Basophil% 0.3 % (0-1); Eosinophil# 0.19 X10^3/uL; Eosinophils% 1.9 % (0-5); Hematocrit 33.7 % (37-47); Hemoglobin 10.5 g/dL (12.0-15.0); Lymphocyte # 3.26 X10^3/ul (0.83-4.51); Lymphocyte % 31.8 % (19-41); Mean Corp Hgb Conc 31.2 g/dL (32-36); Mean Corpuscular Hgb 27.2 pg (27.0-32.0); Mean Corpuscular Volume 87.3 fL (81-99); Mean Platelet Vol. 9.8 fl (6.2-12.0); Monocyte# 0.67 X10^3/uL; Monocyte% 6.5 % (0-10); NRBC Flagged by Analyzer 0 % (0-5); Neutrophil # 6.06 X10^3/uL (2.7-7.7); Platelet Count 274 K/mm3 (150-450); RBC Distribution Width CV 14.6 % (11.6-14.6); RBC Distribution Width SD 46.3 fl (35.1-43.9); Red Blood Count 3.86 M/mm3 (4.2-5.4); White Blood Count 10.3 K/mm3 (4.4-11.0)
[2024-08-09 17:52] LABS: Color, Urine Yellow (Yellow); Glucose, Dipstick Normal (Normal); Ketone-Dipstick Negative (Negative); Leukocyte Esterase-Dipstick 25 /ul (Negative); Nitrite-Dipstick Negative (Negative); Occult Blood-Urine 150 /ul (Negative); Protein-Dipstick 30 mg/dl (Negative); Urine Bilirubin Dipstick Negative (Negative); Urine Clarity Sl. Cloudy (Clear); Urine Urobilinogen Normal (Normal)
[2024-08-09 19:07] LABS: Albumin, Serum 3.5 g/dL (3.2-5.0); Anion Gap 6 (5-15); BUN 20 mg/dL (7-18); BUN/Creat Ratio 21.7 RATIO (10-20); Calcium,Total 9.6 mg/dL (8.5-10.1); Chloride 106 mmol/L (98-107); Creatinine, Serum 0.92 mg/dL (0.55-1.02); EST Glomerular Filtration Rate 63 mL/min (>60); Est Glom Filt Rate - Afr Amer 76 mL/min (>60); Glucose 92 mg/dL (74-106); Sodium Level 138 mmol/L (136-145)
--- NOTE | 2024-08-11 12:39 | HP.PCM_ITS ---
History and Physical History and Physical Patient Name: Reva Warner : 1945From:? LEIDA PEÑALOZA PA-C DATE OF PRE-OPERATIVE EXAM: 08/11/2024 DATE OF SURGERY:? 08/16/2024 SCHEDULED PROCEDURE:?? Revision left total knee arthroplasty with removal of antibiotic spacer HISTORY OF PRESENT ILLNESS: Preoperative history and physical exam was performed on August 11, 2024.? This is a 79-year-old female who has long history of ongoing left knee surgeries.? She initially had a left total knee arthroplasty on June 04, 2022.? Patient has history of recurrent urinary tract infections.? Patient had increase in left knee pain in which her knee was aspirated with patient having a periprosthetic joint infection.? Patient underwent a removal left total knee arthroplasty with placement of antibiotic spacer on April 27, 2024.? She was treated with infectious disease with IV antibiotics postoperatively.? Patient has clearance from pet adoption counselor Dr. Chandra, infectious disease Dr. Bowden who has referred her to urologist Dr. Rodriguez.? Patient will see the urologist on this Friday.? She has been on chronic antibiotics for urinary tract infection.? We are sending clearance to urology.? We are also getting official clearance from primary care physician Dr. Torre who was waiting for cardiac clearance.? Patient denies any symptoms with urinary tract infection.? She did have recent urinalysis with some elevated levels.? She has also been treated chronically for anemia in which her most recent hemoglobin was 10.5.? She is currently using iron and folic acid.? She denies any chest pain, shortness of breath, fevers chills, dizziness, lightheadedness, or calf pain.? No past history of DVT or pulmonary embolism.? She is currently on hormone therapy.? Patient's last A1c was 6.3.? Patient has medical history pertinent for type 2 diabetes mellitus, hypertension, chronic urinary tract infections, history kidney stones, anemia, gastroesophageal reflux disease. REVIEW OF SYSTEMS: Review Of Systems: Constitutional: Reports weight change, but denies change in appetite and fever. Cardiovasular: Reports irregular heartbeat, but denies chest pain and heart murmur. Respiratory: Denies cough, pneumonia, shortness of breath, tuberculosis and wheezing. Gastrointestinal: Reports constipation and heartburn, but denies diarrhea, nausea, rectal itching, bloody stools and vomiting. Genitourinary: . (F Genital Sx) Denies incontinence. Musculoskeletal: Reports gait disturbance, pain, trouble walking and weakness. Skin: Denies Raynaud's, history of shingles and tattoo. Neurological: Reports ambulatory dysfunction but denies dizziness, numbness/tingling and tremor. Psychiatric: Denies anxiety, insomnia and stress. Hematologic/Lymphatic: Reports anemia and bleeding/bruising tendency, but denies past transfusion. Reviewed and updated. PAST MEDICAL HISTORY: Advance Care Plan: Other Directive, POA Effective Date: 05/04/2020 Other Directive, LIVING WILL Effective Date: 05/04/2020 Past Medical History: Medical Problems: Arthritis, Diabetes, Hard of Hearing, High Blood Pressure, Osteoporosis Repeated UTI Infection - (05/19/2020) Kidney Stones Glaucoma - UNDER CONTROL Degenerative Disc Disease UTI - (2023) in [facility] / current ongoing UTI 02/12/24 Anemia, Irregular Heartbeat, Acid Reflux Accidents: Other - (1967) fall on back locked Surgical Hx: Gallbladder - (1974) Dr. Tripathi Hysterectomy - (1979) Dr. Bridges Tonsillectomy - (1949) Knee Arthroscopy LT - (2002) Knee Replacement RT - (2016) Tubes Tied - (1975) RT TKR Removed W/Antibitoic Spacer Placed - (06/28/2020) SAW @ [facility] Cataracts Surgery - LT-2012 RT-2013 LT Foot Rev RT TKR Following Infection - (10/04/2020) SAW AT [facility] Kindney Stones - (04/04/2022) Left Total Knee Replacement - (06/04/2022) DR. CASILLAS @ [facility] Bowel adhesion - 1969 Left Hip Fluoroscopic-Guided Intraarticular Injection - (04/03/2023) DR. CASILLAS @ [facility] Hip Replacement LT - (01/06/2024) ANTERIOR DR. CASILLAS AT [facility] Revision Left TKR/Articulating Spacer - (04/27/2024) DR. CASILLAS AT [facility] Anesthesia Complications: None Assistive Devices: Glasses, Hearing Aid, Cane, Brace, Walker, Freestyle glucose monitor implant left arm Reviewed and updated. SOCIAL HISTORY: Social History: Marital: .Occupation: Retired.Work Status: Retired.Hand Dominance: Right- handed. Personal Habits:? Cigarette Use: Never Smoked Cigarettes.Smokeless Tobacco: Never Used Smokeless Tobacco.E-Cigarette Use: Never used.Alcohol: Denies use.Drug Use: Denies Use.Enjoy Exercising: Daily. Reviewed, no changes. VITALS: Ht: 66 Wt: 194lb Wt k.998 BMI: 31.3 BP: 122/72 Pulse: 57 Resp: 16 T: 97.1 T: 36.2C Pain Level: 5 O2SatR: 97 ALLERGIES: Sulfa Zoloft Mavik Benicar Zocor Carlos Dupree Ciprofloxacin - hospitalized for 2 weeks due to this medication Metformin Attale Teauin Betaxolol Doxazosin Axid Ar Cortisone Zilacaine Sertraline Epinephrine / Lidocaine Exenatide Metformin / Sitagliptin Sitagliptin Olmesartan Gatifloxacin Nizatidine Trandolapril ? Attale (Headache) Simvastatin Sulfonamide -Class Of Antibiotic- (Substance) Hydrochlorothiazide ? Boxazosin (Pounding Heart) ?Bataxolo (High BP) Sulfonamide (Substance) MEDICATIONS: Lisinopril 40 mg 1 po qd, Fish Oil 1200 mg 1 po bid, Probiotic? 1 by mouth every day, Prilosec OTC? prn, Vitamin B-12 1000 mcg/15ML once a day, Eldridge 3? fish oil 500 mg cap take one tablet 2 times a daily, Amlodipine Besylate 5 mg 1 by mouth every day, Humalog 100 Unit/ML 6-12 units three times a day, Tylenol 325 mg 2 tablets by mouth every 8 hours, D-Mannose 500 mg 3po qday, Calcium + D3 600-200 1 po qdaily, Estrace 0.1 mg/gm twice a week - substitute compound used, Trimethoprim 100 mg one tab po once daily, Ferrous Sulfate 324 (65 Fe) MG take 1 tablet by mouth every other day, Oxycodone HCL 5 mg 1-2 tab by mouth every 6 hours, Methenamine Hippurate 1 gm 1 po qdaily, Aspirin 81 81 mg 1 po qdaily, Folic Acid 1 mg 1 by mouth every day, Gemtesa 75 mg once a day, Nystatin/Tri amcinolone Acetonide 304450-6.1 Unit/GM-% apply to affected area twice a day, [facility] Vitamin B12 1000 mcg daily PRE-OP EXAM: General appearance:NORMAL? Other: Eyes: Conjunctivae and lids: NORMAL? Pupils: ERR Ears, Nose, Mouth, and Throat: NORMAL? Other: Inspection of lips, teeth and gums: NORMAL?? Other: Neck: Examination of neck: no masses noted. Respiratory: Assessment of respiratory effort: NORMAL?? Other: ? Auscultation of lungs: clear to auscultation no wheezes, rhonchi or rales. Cardiovascular:? Auscultation of heart: regular rate and rhythm, no murmurs, gallops or rubs. PHYSICAL EXAMINATION: Left knee incision is well-healed.? Nontender palpation left knee.? Range of motion: Near full extension to 90 flexion.? Sensation intact to light touch.? Currently ambulating with antalgic gait IMAGING STUDIES: Previous x-ray shows a well fixed antibiotic spacer articulating implants. Most recent Synovasure was negative for infection IMPRESSION: 1.? Left knee antibiotic spacer 2.? Hypertension 3.? Type 2 diabetes mellitus: Last A1c 6.3 4.? History of recurrent urinary tract infections 5.? Gastroesophageal reflux disease 6.? Chronic anemia: Currently on iron and folic acid 7.? Irregular heartbeat with premature atrial contractions 8.? Obesity with BMI 31.3 PLAN: Dr. Oren Casillas did discuss and review with the patient all treatment options including surgical versus nonsurgical options.? Patient does wish to proceed with the above-stated procedure.? Potential risks, benefits, and complications of the procedure were discussed in detail including but not limited to , infection, nerve and blood vessel damage, persistent pain, numbness, tingling, paresthesias, blood clot, pulmonary embolism, and requirement for possible further surgery.? The patient expressed full understanding and has no further questions for the doctor.? Patient does agree to proceed with the above-stated procedure and has signed the surgery consent form. POST-OP MEDICATION PLAN: Pain Medications:? Postoperative pain regimen will be initiated in the hospital by Dr. Oren Casillas.? Patient will be placed on Rivaroxaban postoperatively due to hormone therapy.? She will continue with her iron and folic acid and I did discuss with her risk of transfusion postoperatively.? She will require follow- up with the primary care physician postoperatively.? We are awaiting clearance from urologist with recommendations on chronic urinary tract infections.? She is currently on 2 antibiotics at this time.? She will bring her walker to the hospital.? She is aware that she will require follow-up with infectious disease postoperatively. DVT Prophylaxis: Due to the patient currently using hormone therapy we will use Xarelto 10 mg once daily for 2 weeks postoperatively.? This will be followed by aspirin 81 mg twice daily for an additional 2 weeks.? She denies past history of DVT or pulmonary embolism This dictation was created using voice recognition software. Phonetic and/or grammatical errors may exist. ___? I have re-examined the patient.? There are no clinical changes since date of exam. ___? See progress notes for changes. ___? Dictated on admission Date: ? Time: Signature:
[2024-08-16] VITALS (14 sets, daily range): BP systolic 130–189; BP diastolic 47–97; PULSE 65–92; RESP 15–92; TEMP 36.5–37; O2SAT 4–99; BMI 31.7
--- NOTE | 2024-08-16 09:18 | PCM.PRE.AN2 ---
ASA Classification* ASA Classification ASA Classification: 3 Assessment & Plan Anesthesia* Anesthesia Assessment Anesthesia Assessment: Discussed sedation and/or anesthesia options, risks, benefits, and alternatives with patient/parents/legal guardian/POA. Questions invited. The patient/parents/legal guardian/POA seems to understand and agrees to proceed with anesthesia plan. Reviewed the physical assessment, medical history, allergy history and patient home medications list prior to surgery/procedure/anesthetic and documented any changes. Performed airway and anesthesia risk assessments. Anesthesia Type Anesthesia Type: Spinal and Block Anesthesia Focused Assessment* Airway Assessment Mouth opens: >3 cm Mallampati Score: II Focused Labs Anesthesia Preop lab: CBC WBC 10.3 K/mm3 (4.4-11.0) 08/09/24 15:39 RBC 3.86 M/mm3 (4.2-5.4) L 08/09/24 15:39 Hgb 10.5 g/dL (12.0-15.0) L 08/09/24 15:39 Hct 33.7 % (37-47) L 08/09/24 15:39 Plt Count 274 K/mm3 (150-450) 08/09/24 15:39 CHEMISTRY Potassium 4.0 mmol/L (3.5-5.1) 08/09/24 15:39 Sodium 138 mmol/L (136-145) 08/09/24 15:39 Magnesium 2.0 mg/dL (1.6-2.6) 08/09/24 15:39 BUN 20 mg/dL (7-18) H 08/09/24 15:39 Creatinine 0.92 mg/dL (0.55-1.02) 08/09/24 15:39 Glucose 92 mg/dL (74-106) 08/09/24 15:39 POC Glucose 172 mg/dL (74-106) H 06/11/24 05:56 TSH 0.59 uIU/mL (0.358-3.74) 03/31/23 10:40 COAG Pre-Assessment Diagnosis/Proposed Procedure Planned Operative Procedure(s): REVISION LEFT TOTAL KNEE REMOVAL OF NON BIODEGRAABLE ANTIBIOTIC SPACER Anesthesia History Anesthesia History - assembler body: Anesthesia History - assembler body Hx Hospitalization Yes: KNEE INFECTION 05/202408/10/24 15:31 Any Problems With Anesthesia No 08/10/24 15:31 Cholinesterase deficiency No 08/10/24 15:31 You/Your Family Experience No 08/10/24 15:31 fever (hyperthermia) with Relationship Recent Exposure to Contagious No 06/17/23 10:32 Disease Does patient have nerve No 08/10/24 15:31 stimulator Patient instructed to have device shut off --Does patient have Pacemaker or ICD? When Was Last Pacemaker Check QUESTION #4 FULL TEXT: You/Your Family Experience fever (hyperthermia) with Anesthesia Last Oral Intake Last Oral intake: Last Oral Intake NPO since Meds taken in AM with sips of water? Meds patient instructed to take am of surgery PONV PONV - assembler body: PONV - assembler body Female Yes 08/10/24 15:31 HX of Motion Sickness No 08/10/24 15:31 HX of N/V After Surgery No 08/10/24 15:31 Non-Smoker Yes 08/10/24 15:31 Duration of Surgery greater Yes 08/10/24 15:31 than 60 minutes Number of Risk Factors 3 08/10/24 15:31 PONV Score Moderate Risk 08/10/24 15:31 Height & Weight Height & Weight: Anesthesia: Height & Weight Height 5 ft 6 in 08/13/24 11:09 Respiratory Assessment Respiratory Assessment - assembler body: Respiratory Tract Infection Hx - assembler body Hx Respiratory Tract Infection No 08/10/24 15:31 STOP Sleep Apnea STOP Sleep Apnea - assembler body: STOP Sleep Apnea - assembler body Hx Hypertension Yes: CONTROLLED WITH MEDS 08/10/24 15:31 Hx Sleep Apnea No 08/10/24 15:31 CPAP No 08/10/24 15:31 BIPAP Do you snore loudly (louder No 08/10/24 15:31 than talking or can be heard Do you often feel tired/ Yes 08/10/24 15:31 fatigued/ sleepy during daytime? Has anyone observed you stop No 08/10/24 15:31 breathing during sleep? STOP Results Positive 08/10/24 15:31 QUESTION #5 FULL TEXT : Do you snore loudly (louder than talking or can be heard through closed doors)? Tobacco Use History Tobacco Use History - assembler body: Tobacco Use History - assembler body Tobacco Use Smoking Status Never smoker 08/10/24 15:31 Hx Tobacco Use No 08/10/24 15:31 Years Smoking Packs Smoked per Day Smoking Cessation Date was within the last 15 years Hx Smoking Cessation Date Hx Smoking Cessation Counseling Hematologic Medial History Hematologic Hx - assembler body: Hematologic Medical Hx - manager talent management Hx of Blood Transfusion No 08/10/24 15:31 Hx of Transfusion in last 3 No 08/10/24 15:31 Months Date of Last Transfusion (if within last 3 months) Ever experience any problems No 08/10/24 15:31 with transfusion(s)? Specify any problems Hx of Preganancy in last 3 No 08/10/24 15:31 Months Nurse Filling Out Transfusion DSCHRIBER 08/10/24 15:31 & Questions: Date: 08/10/24 08/10/24 15:31 Time: 15:33 08/10/24 15:31 Patient unable to answer at this time (ie. confused, unrespo /Reproduction History /Reproductive History - assembler body: /Reproductive Hx- assembler body Hx Now Gestational Age (in weeks): EDC: Hx Hx Para Hx Section SAB No 08/10/24 15:31 Active Medications Active Medications: Current Medications Generic Name Dose Route Start Last Admin Trade Name Freq PRN Reason Stop Dose Admin Acetaminophen 1,000 mg 08/16/24 11:15 Acetaminophen 500 Mg Tablet PO 08/16/24 11:16 X1 ONE Sodium Chloride 77.4 ml/ 0 ml 08/16/24 11:15 Ropivacaine 200 mg/ OPERA.SITE 08/16/24 11:16 Epinephrine HCl 0.6 mg/ X1 ONE Ketorolac Tromethamine 30 mg/ Morphine Sulfate 5 mg Dexamethasone Sodium Phosphate 10 mg 08/16/24 11:15 Dexamethasone 10 Mg/Ml Vial IV 08/16/24 11:16 X1 ONE Gabapentin 600 mg 08/16/24 11:15 Gabapentin 600 Mg Tablet PO 08/16/24 11:16 X1 ONE Tranexamic Acid 1,000 mg/ 110 mls @ 660 mls/hr 08/16/24 12:15 Sodium Chloride IV 08/16/24 12:24 X1 ONE Lactated Ringer's 1,000 mls @ 75 mls/hr 08/16/24 11:15 IV 08/17/24 00:34 .[id number] RAEANN Cefazolin Sodium 2 gm/ N/A 20 mls @ 400 mls/hr 08/16/24 11:15 IV 08/16/24 11:17 PREOP ONE Tranexamic Acid 1,000 mg/ 110 mls @ 660 mls/hr 08/16/24 11:15 Sodium Chloride IV 08/16/24 11:24 X1 ONE Magnesium Sulfate 1 gm/ 102 mls @ 408 mls/hr 08/16/24 11:15 Dextrose IV 08/16/24 11:29 X1 ONE Insulin Human Lispro 1 - 6 unit 08/16/24 11:15 Insulin Lispro 100 Unit/Ml Insuln.Pen SC Q4H PRN PRN BG>/= 180, SEE PROTOCOL Protocol PFSH Medical History Wears hearing aid Wears glasses Walker as ambulation aid Low iron High cholesterol Dietary restriction Gastric reflux History of echocardiogram History of stress test Cardiology follow-up encounter History of ESBL E. coli infection Irregular heart beat History of TIA (transient ischemic attack) and stroke Constipation Vaginal irritation Furunculosis Renal stone Insulin dependent diabetes mellitus Bladder disease Back pain Difficulty swallowing History of diverticulitis History of pain when walking History of edema History of irregular heartbeat DDD (degenerative disc disease), lumbar Osteoarthritis Chronic back pain Balance disorder Lumbar radiculopathy Neuropathy Obesity GERD (gastroesophageal reflux disease) Osteoporosis Hearing loss Chronic UTI (urinary tract infection) Glaucoma Essential (primary) hypertension Home Medications ?Medication ?Instructions ?Recorded ?Last Taken ?Type cholecalciferol (vitamin D3) 50 2,000 unit PO DAILY supplement 07/20/19 04/30/24 08:25 History mcg (2,000 unit) capsule omeprazole magnesium 20 mg 20 mg PO DAILY PRN Heartburn 07/20/19 04/30/24 08:25 History tablet,delayed release (Prilosec OTC) cyanocobalamin (vitamin B-12) 2,000 mcg PO DAILY supplement 06/14/20 04/30/24 08:25 History 1,000 mcg capsule omega-3 fatty acids-fish oil 340 1 ea PO DAILY SUPPLEMENT 08/30/20 Unknown History mg-1,000 mg capsule blood sugar diagnostic (FreeStyle #100 ea 07/16/21 Unknown Rx Precision Esvin Strips) d-mannose 500 mg capsule 2,100 mg PO BID SUPPLEMENT 03/29/22 Unknown History estradiol 0.01% (0.1 mg/gram) 1 appful vaginal MOWEFR HORMONE 04/10/22 Unknown History vaginal cream (Estrace) flash glucose sensor (FreeStyle #1 ea 01/23/23 Unknown Rx Shani 2 Sensor kit) Handicap Placard #1 ea 12/24/23 Unknown Rx insulin lispro protamine-lispro 25 unit subcut TID Diabetes 01/29/24 04/30/24 11:25 History 100 unit/mL (50-50) subcutaneous pen (Humalog Mix 50-50 KwikPen) folic acid 1 mg tablet 1 mg PO DAILY supplement #90 tabs 02/11/24 04/30/24 08:25 Rx ferrous sulfate 325 mg (65 mg 325 mg PO DAILY supplement #90 tabs 04/16/24 04/30/24 11:25 Rx iron) tablet methenamine hippurate 1 gram tablet 1 g PO BID URINE PROTECTION 30 06/01/24 Unknown Rx days #60 tabs lisinopril 40 mg tablet 40 mg PO DAILY BP #0 tabs 06/09/24 Unknown Rx amlodipine 10 mg tablet 5 mg PO QHS BP 07/21/24 Unknown History lactobacillus combination no.9 4 4,000 mmu cells PO DAILY SUPPLEMENT 07/21/24 Unknown History billion cell capsule (Adult 50 Plus Probiotic) vibegron 75 mg tablet (Gemtesa) 75 mg PO QDAY OAB 07/21/24 Unknown History BD Ultra-Fine Short Pen Needle 31 #300 ea 08/02/24 Unknown Rx gauge x 5/16 (pen needle, diabetic) nystatin-triamcinolone 100,000 1 applic topical BID SKIN 08/02/24 Unknown History unit/g-0.1 % topical cream acetaminophen 500 mg tablet 1,000 mg PO Q6H PAIN 08/10/24 Unknown History (Acetaminophen Extra Strength) calcium carbonate 1,200 mg PO DAILY SUPPLEMENT 08/10/24 Unknown History Allergy/AdvReac Type Severity Reaction Status Date / Time ciprofloxacin Allergy Severe impairment Verified 08/13/24 11:05 of motor skills hydrochlorothiazide Allergy Mild other Verified 08/13/24 11:05 gatifloxacin (From Tequin) Allergy Unknown Other Verified 08/13/24 11:05 lidocaine (From Xylocaine) Allergy Unknown Other Verified 08/13/24 11:05 Sulfa (Sulfonamide Allergy Unknown unknown Verified 08/13/24 11:05 Antibiotics) metformin AdvReac Intermediate loose Verified 08/13/24 11:05 stool, bladder infections sitagliptin (From Janumet) AdvReac Intermediate loose stool Verified 08/13/24 11:05 batroxobin AdvReac Unknown unknown Verified 08/13/24 11:05 exenatide (From Byetta) AdvReac Unknown unknown Verified 08/13/24 11:05 nizatidine (From Axid) AdvReac Unknown unknown Verified 08/13/24 11:05 sertraline (From Zoloft) AdvReac Unknown unknown Verified 08/13/24 11:05 simvastatin (From Zocor) AdvReac Unknown unknown Verified 08/13/24 11:05 trandolapril (From Mavik) AdvReac Unknown unknown Verified 08/13/24 11:05 betaxolol AdvReac Other Verified 08/13/24 11:05 doxazosin AdvReac Other Verified 08/13/24 11:05 olmesartan (From Benicar) AdvReac Diarrhea Verified 08/13/24 11:05 Family History Mother CVA (cerebral vascular accident) Aunt Breast cancer Surgical History Hx of total knee arthroplasty Hx of total knee arthroplasty S/P total hip arthroplasty S/P hip hemiarthroplasty History of total left hip replacement Hx of arthroscopic knee surgery Hx of eye surgery Hx of bilateral cataract extraction Hx of total knee arthroplasty Hx of knee surgery Hx of total knee arthroplasty H/O foot surgery H/O: hysterectomy History of cataract surgery H/O tubal ligation History of cholecystectomy History of tonsillectomy Social History household members: spouse Smoking Status: Never smoker alcohol intake: current alcohol intake frequency: a few times a week substance use type: does not use diet: diabetic well-balanced diet: daily or most days what type of physical activity do you participate in: walking frequency: 1-2 times per week Review of Systems (Anesthesia) ROS Narrative System reviewed and no additional complaints, except as documented.
[2024-08-16] MEDS: Acetaminophen 500 MG Tablet 1000 MG PO ×2 (09:46→19:59)
[2024-08-16] MEDS: Gabapentin 600 MG Tablet PO (09:46)
[2024-08-16] MEDS: Magnesium 1 GM over 15 mins IV (09:46)
[2024-08-16] MEDS: Lactated Ringers 1,000 ML 75 ML IV (09:47)
[2024-08-16 10:33] LABS: Bedside Glucose 267 mg/dL (74-106)
[2024-08-16] MEDS: Cefazolin 2 GM in Syringe IV (11:45)
[2024-08-16] MEDS: dexAMETHasone 10 MG/ML Vial IV (11:48)
[2024-08-16] MEDS: TXA 1000mg in NS100 100ml (IVPB at Incision) 660 MG IV (11:50)
[2024-08-16 13:00] LABS: Bedside Glucose 111 mg/dL (74-106)
[2024-08-16] MEDS: TXA 1000mg in NS100 100ml (IVPB at Closure) 660 MG IV (13:57)
[2024-08-16] MEDS: JPS (Morphine 10mg/ml) OPERA.SITE (14:21)
--- NOTE | 2024-08-16 14:31 | PCM.OPRPT ---
Operative Report (Standard) Operative Information Date of Procedure: 08/16/24 Pre-Operative Diagnosis: Left knee periprosthetic joint infection Post-Operative Diagnosis: Left knee periprosthetic joint infection Surgery/Procedure Performed: Revision left total knee replacement entire femoral tibial components Removal drug delivery device left knee skin grader: Yes Park Landscape Architect: Dontrell Melendrez Tasks completed by aquatics assistant department head: Other (See body of operative report) Additional elementary assistant teacher?: No Type of Anesthesia: Spinal RN Documented Start/Stop Times: Operation Date: 08/16/24 11:15 Case Time Into Pre-Op 08/16/24 08:57 Anesthesia Start 08/16/24 11:45 Into Room 08/16/24 11:45 Procedure Start 08/16/24 12:06 Procedure End 08/16/24 14:57 Anesthesia End 08/16/24 15:02 Out of Room 08/16/24 15:02 Into Recovery 08/16/24 15:05 Out of Recovery 08/16/24 16:28 Procedure Start Time: 12:06 Procedure Stop Time: 14:57 Select all DRAINS/GRAFTS/IMPLANTS that apply: Drains Drain details: Incisional wound VAC and Prosthetic device Prosthetic device details: Total knee Special Medications: 2 g Ancef, 1 g TXA at incision, 1 g TXA closure, 10 mg Decadron, joint cocktail (5 mg Duramorph, 30 mL of 0.5% Ropivicaine, 1000 units of epinephrine, 30 mg of Toradol) Estimated Blood Loss: 100 mL Fluids Replaced: Crystalloid Specimen collected: Yes Description of specimen(s) removed: 3 separate specimens were sent to microbiology Description of surgery: Implants used: Femur: Josh triathlon hinge size 4 with 15 x 100 mm cemented stem Tibia: [place] triathlon hinged tibial baseplate size 4 with 50 x 15 mm cemented stem. Size C tibial cone Poly: 13 mm hinge [place] triathlon polyethylene Procedure: On the date of procedure patient's left lower extremity was marked in the preoperative area. The patient was then taken back to the operating room where the patient was placed on the table in the supine position. All bony prominences were identified a well-padded. Anesthesia assumed control of the C-spine and airway and remained controlled throughout the remainder of the procedure. A tourniquet was placed on the left upper thigh and the leg was prepped in a sterile fashion. The surgeon then scrubbed at this time. Upon reentering the room LEFt lower extremity was draped in a standard orthopedic fashion. A timeout was then called and everyone agreed upon the side, the site, the procedure to be performed, patient's identity and antibiotics given. An Esmarch bandage was used to exsanguinate the extremity and the tourniquet was placed up to 250 mmHg with the knee in flexion. A midline skin incision was made using the previous incision and extending it proximally and distally to identify normal tissue planes. Medial and lateral flaps were developed appropriate releases. The standard medial parapatellar arthrotomy was made and the patella was subluxed laterally. At this time an aggressive synovectomy was performed re-creating the medial gutter first, then the suprapatellar pouch than the lateral gutter. Once this was completed the knee was flexed up an osteotome was used to remove the tibial polyethylene. The remainder of the synovium was debrided. The standard deep MCL release was done and the patella scar pad was resected and lateral releases were performed. Next our attention was directed to the femur. Wear flexible osteotomes and TPS saw were used to break up the implant cement interface. This was done both medially and laterally. After this is adequately lucent bone tamp was used to remove the femur component from the end of the bone. This was done with minimal bone loss. At this time attention was now directed towards the proximal tibia. Possible osteotome and TPS saw were then used to break up the proximal tibia implant interface and stacked osteotomes were used to remove the tibial implant. This was done with minimal bone loss. Our attention was then turned to the tibia where the intramedullary canal was reamed to 20 mm and extramedullary tibial cutting guide was used to make the appropriate tibial cut 90 degrees from the mechanical axis. A drop rodolfo was then used to verify the cut. A size 4 tibial base plate was selected. the knee was flexed and the cone reamer was used to ream for a size C cone. Trial size C cone was put in place. Next, tibial component was pinned into place and the boss reamer was used to ream the proximal medullary canal. The trial implant was impacted in its prepared position. Our attention was then turned back to the femur or the femur intramedullary canal was reamed to 21 mm and the trial cutting guide for a size [address]. However, as we were trialing with a trial cutting guide it was noted that the MCL was insufficient compared to the LCL and based on patient's previous complaints of instability and incompetent MCL we elected to proceed with a hinged prosthesis. The intramedullary reamer was put back into place. Intramedullary reamer was used as a cutting guide to make our distal femoral cut. Distal femoral was made using the standard Allocadia medial epicondyle guide to set the joint line. Cleanup cut was made we knew we would need a 0 augment medially, and 0 augment laterally. Using the previous femoral component and tibial component as a guide the size 4 4-in-1 femoral cutting guide was pinned into place in the appropriate rotation. Rotation was based on the medial epicondyles and tibial cut. Once this was pinned in place anterior cut, anterior chamfer cut, posterior cut and posterior chamfer cuts were made. The box cutting guide was then pinned into place and the box cut was made using a reciprocating saw. The appropriate trials were then placed on the femur and tibia. A trial polyethylene was trialed to ensure proper balancing and stability of the knee. Patella tracking, was then verified and corrected appropriately as needed. Our attention was then directed to the patella. The patella upon injury was noted to have minimal patella bone. Original postop films did not indicate a patella fracture however there was a longitudinal split in the patella very similar to a single rescue technique for the patella based on this we elected to use this technique. Patellar tracking was again checked and deemed appropriate. Final components were verified and opened, 6 liters of normal saline were irrigated throughout the joint under low-pressure lavage. Then the cement was mixed in a vacuum. [place] Simplex cement with tobramycin was used. The wound was copiously irrigated with normal saline. When the cement was ready the components were cemented into place starting with the tibia, femur cementing each 1 and removing excess cement. The trial poly component was placed and the knee was placed in full extension. All excess cement was removed in the process. Once the cement had cured the tracking, alignment and balance were verified and a size 13 mm polyethylene component was placed with the appropriate hinged bushings and bar. Once the final components were placed dilute Betadine solution was used to irrigate out the wound for 3 minutes then a chlorhexidine solution. Finally, the wound was copiously irrigated with normal saline solution and the remainder of the periarticular injection was given. The wound was closed in a layer aguila fashion using #1 vicryl interrupted sutures for the arthrotomy, the initial closure for the arthrotomy we did use overlapping mattress suture technique. Running sutures were used proximally and distally once the initial Lausier was complete. 2-0 interrupted Vicryl for the subcuticular layer and aimee for final skin closure. A sterile compressive dressing was then placed. The patient was then awakened from anesthesia, transferred to [facility] and transferred to the PACU for recovery. Post op plan DVT ppx: Xarelto 10 mg daily for 2 weeks followed by aspirin 81 mg twice daily for 2 weeks, thigh high compression stockings Follow up: in office in 2 weeks for wound check PT: to start POD #0 at hospital, outpatient PT should be arranged. ID: Patient be placed on doxycycline 100 mg p.o. twice daily for 2 weeks as we follow cultures as well as 24 hours postop IV antibiotics. Additionally, we will consult infectious disease the patient is known to for any additional antibiotic recommendations considering the complexity of this patient's history with her chronic recurrent UTIs. My physician elementary assistant teacher was a vital part of this case, they was important because there was not another skilled set of hands available to their training and aptitude needed for safe and appropriate completion of this case. They were important in appropriate retraction during the case, and protection of soft tissues during bony cuts. In particular the experience and skill of this elementary assistant teacher made for safe retraction and exposure during implantation of medical implants without damage or fracture to vital soft tissues or structures. His intimate knowledge of the case and my steps aided in safe and expedient completion of the procedure as well as appropriate position of the leg during the case. He was also vital in assisting with closure and placement of the dressing under my direct supervision. Surgical Findings: Stable knee. Patient MCL was insufficient so we did elect to proceed with a hinged knee replacement. Patient had minimal patella bone with central longitudinal fracturing consistent with a cecal type technique we elected not to resurface the patella and to leave it in situ. Complications Complications: No Admit VTE Documentation VTE Present on Admission: No VTE Mechan Device Prophylaxis: SCD's and Thigh High PAKO Hose VTE Pharm Prophylaxis ordered?: Yes
--- NOTE | 2024-08-16 15:20 | RAD_ITS ---
INDICATION: post op -- AP and Lateral xray of operative knee in PACU EXAMINATION/TECHNIQUE: X-RAY - LEFT XR Knee 1 or 2 Views 2 VIEWS COMPARISON: Prior study dated: 05/06/2024 FINDINGS: Total left knee arthroplasty revision. The femoral component articulates appropriately with the tibial and patellar components. Postoperative soft tissue swelling and gas. RAD/Knee 1 or 2 Views IMPRESSION: Total left knee arthroplasty in typical positioning and alignment. Electronically Signed: Reese Bone MD at 15:52 EST ,
--- NOTE | 2024-08-16 15:20 | PCM.POST.ANE ---
Anesthesia: Postop Eval I Current Vital Signs Temperature: 98.4 F Pulse Rate: 82 Blood Pressure: 152/57 Respiratory Rate: 16 Pulse Ox: 93 Oxygen Delivery Method: Nasal Cannula Oxygen Flow Rate (L/min): 4 Assessment Airway patent: Yes Spontaneous unlabored respirations: Yes Mental status: Awake and Calm nausea: No Vomiting: No Anesthesia Complication: No Fluid Hydration Crystalloid volume administer (ml): 1,200 Total IV fluid infused: 1,200 Progress Note Anesthesia document: Postop Eval 1 completed: Yes
[2024-08-16] MEDS: Insulin Lispro 100 UNIT/ML INSULN.PEN SC ×2 (15:27→20:56)
[2024-08-16 15:45] LABS: Bedside Glucose 241 mg/dL (74-106)
--- NOTE | 2024-08-16 16:54 | CON.PCM.HO_ITS ---
Assessment & Plan Assessment/Plan (1) Infection of prosthetic left knee joint: QUALIFIERS: Encounter type: initial encounter Qualified Code(s): T84.54XA - Infection and inflammatory reaction due to internal left knee prosthesis, initial encounter PLAN: Plan Patient is a 79-year-old female who presented to [facility] on 08/16/2024 for planned orthopedic procedure. Medicine consulted postoperatively for medical management. 1. Left knee prosthetic joint infection ? Orthopedic surgery primary. Infectious disease consulted. S/p revision of left total knee replacement and removal of antibiotic spacer on 08/16. Tolerated procedure well, no intraoperative complications. Treating with p.o. doxycycline, ID recs to come. Pain control with scheduled Tylenol, oxycodone and IV morphine as needed. DVT prophylaxis with Xarelto 10 mg daily. Further management per orthopedics. 2. Mild iron deficiency anemia ? Last hemoglobin 10.5 on preop labs on 08/09, at baseline. Follow-up a.m. CBC. Continue home iron supplement. 3. Type 2 diabetes mellitus ? Follows with outpatient endocrinology. Home regimen of Humalog 25 units 3 times daily with meals. Last A1c 6.3% on 08/02 and patient reported some lows at home but Dr. Harrison wanted tight glucose control with the prosthetic joint infection. Will start on high-dose sliding scale insulin with meals for now but low threshold to start scheduled insulin dosing with meals. 4. Hypertension ? On home lisinopril 40 mg daily and amlodipine 5 mg daily. Hypertensive postoperatively to the 150s to low 170s. Last BMP on 08/09 with creatinine 0.92 which is baseline. Follow-up a.m. BMP. Continue home lisinopril and amlodipine. Chronic medical conditions: ? Class I obesity: BMI 31 on admit. Complicates hospital course, care and prognosis. ? GERD: Continue home PPI. ? Overactive bladder: Continue home vibegron. Total clinical time spent by myself addressing the patient's medical issues, reviewing all the data, and collaborating with patient's care team: 35 minutes. HPI Consult Data Date of Consult: 08/16/24 HPI Narrative Reason for Consultation: Postop medical management HPI Narrative: ARSALAN SPENCE, is a 79 F who presented to [facility] on 08/16/2024 for planned left knee procedure with orthopedic surgery. Medicine consulted postoperatively for medical management. Patient has history of left knee replacement back in 2021. Unfortunately had infection in the knee this summer and had surgery to remove hardware and an antibiotic spacer placed. Had procedure this morning with Dr. Casillas with removal of antibiotic spacer and revision of total knee replacement. I saw the patient at bedside later this afternoon after procedure. She was alert and oriented and sitting up comfortably in bed. She did report mild knee pain currently but stated this was manageable pain. Denied any other pain or discomfort. Denied any fevers or chills. No other acute concerns at this time. [facility] Medical History Wears hearing aid Wears glasses Walker as ambulation aid Low iron High cholesterol Dietary restriction Gastric reflux History of echocardiogram History of stress test Cardiology follow-up encounter History of ESBL E. coli infection Irregular heart beat History of TIA (transient ischemic attack) and stroke Constipation Vaginal irritation Furunculosis Renal stone Insulin dependent diabetes mellitus Bladder disease Back pain Difficulty swallowing History of diverticulitis History of pain when walking History of edema History of irregular heartbeat DDD (degenerative disc disease), lumbar Osteoarthritis Chronic back pain Balance disorder Lumbar radiculopathy Neuropathy Obesity GERD (gastroesophageal reflux disease) Osteoporosis Hearing loss Chronic UTI (urinary tract infection) Glaucoma Essential (primary) hypertension Home Medications ?Medication ?Instructions ?Recorded ?Last Taken ?Type cholecalciferol (vitamin D3) 50 2,000 unit PO DAILY supplement 07/20/19 08/16/24 History mcg (2,000 unit) capsule omeprazole magnesium 20 mg 20 mg PO DAILY PRN Heartburn 07/20/19 08/16/24 History tablet,delayed release (Prilosec OTC) cyanocobalamin (vitamin B-12) 2,000 mcg PO DAILY supplement 06/14/20 08/12/24 History 1,000 mcg capsule omega-3 fatty acids-fish oil 340 1 ea PO DAILY SUPPLEMENT 08/30/20 08/12/24 History mg-1,000 mg capsule blood sugar diagnostic (FreeStyle #100 ea 07/16/21 Unknown Rx Precision Esvin Strips) d-mannose 500 mg capsule 2,100 mg PO BID SUPPLEMENT 03/29/22 08/12/24 History estradiol 0.01% (0.1 mg/gram) 1 appful vaginal MOWEFR HORMONE 04/10/22 08/13/24 History vaginal cream (Estrace) flash glucose sensor (FreeStyle #1 ea 01/23/23 Unknown Rx Shani 2 Sensor kit) Handicap Placard #1 ea 12/24/23 Unknown Rx insulin lispro protamine-lispro 25 unit subcut TID Diabetes 01/29/24 08/15/24 History 100 unit/mL (50-50) subcutaneous pen (Humalog Mix 50-50 KwikPen) folic acid 1 mg tablet 1 mg PO DAILY supplement #90 tabs 02/11/24 08/12/24 Rx ferrous sulfate 325 mg (65 mg 325 mg PO DAILY supplement #90 tabs 04/16/24 08/12/24 Rx iron) tablet methenamine hippurate 1 gram tablet 1 g PO BID URINE PROTECTION 30 06/01/24 08/12/24 Rx days #60 tabs lisinopril 40 mg tablet 40 mg PO DAILY BP #0 tabs 06/09/24 08/15/24 Rx amlodipine 10 mg tablet 5 mg PO QHS BP 07/21/24 08/15/24 History lactobacillus combination no.9 4 4,000 mmu cells PO DAILY SUPPLEMENT 07/21/24 08/12/24 History billion cell capsule (Adult 50 Plus Probiotic) vibegron 75 mg tablet (Gemtesa) 75 mg PO QDAY OAB 07/21/24 08/12/24 History BD Ultra-Fine Short Pen Needle 31 #300 ea 08/02/24 Unknown Rx gauge x 5/16 (pen needle, diabetic) nystatin-triamcinolone 100,000 1 applic topical BID SKIN 08/02/24 08/12/24 History unit/g-0.1 % topical cream acetaminophen 500 mg tablet 1,000 mg PO Q6H PAIN 08/10/24 08/15/24 History (Acetaminophen Extra Strength) calcium carbonate 1,200 mg PO DAILY SUPPLEMENT 08/10/24 08/12/24 History Allergy/AdvReac Type Severity Reaction Status Date / Time ciprofloxacin Allergy Severe impairment Verified 08/16/24 09:25 of motor skills hydrochlorothiazide Allergy Mild other Verified 08/16/24 09:25 gatifloxacin (From Tequin) Allergy Unknown Other Verified 08/16/24 09:25 lidocaine (From Xylocaine) Allergy Unknown Other Verified 08/16/24 09:25 Sulfa (Sulfonamide Allergy Unknown unknown Verified 08/16/24 09:25 Antibiotics) metformin AdvReac Intermediate loose Verified 08/16/24 09:25 stool, bladder infections sitagliptin (From Janumet) AdvReac Intermediate loose stool Verified 08/16/24 09:25 batroxobin AdvReac Unknown unknown Verified 08/16/24 09:25 exenatide (From Byetta) AdvReac Unknown unknown Verified 08/16/24 09:25 nizatidine (From Axid) AdvReac Unknown unknown Verified 08/16/24 09:25 sertraline (From Zoloft) AdvReac Unknown unknown Verified 08/16/24 09:25 simvastatin (From Zocor) AdvReac Unknown unknown Verified 08/16/24 09:25 trandolapril (From Mavik) AdvReac Unknown unknown Verified 08/16/24 09:25 betaxolol AdvReac Other Verified 08/16/24 09:25 doxazosin AdvReac Other Verified 08/16/24 09:25 olmesartan (From Benicar) AdvReac Diarrhea Verified 08/16/24 09:25 Family History Mother CVA (cerebral vascular accident) Aunt Breast cancer Surgical History Hx of total knee arthroplasty Hx of total knee arthroplasty S/P total hip arthroplasty S/P hip hemiarthroplasty History of total left hip replacement Hx of arthroscopic knee surgery Hx of eye surgery Hx of bilateral cataract extraction Hx of total knee arthroplasty Hx of knee surgery Hx of total knee arthroplasty H/O foot surgery H/O: hysterectomy History of cataract surgery H/O tubal ligation History of cholecystectomy History of tonsillectomy Social History household members: spouse Smoking Status: Never smoker alcohol intake: current alcohol intake frequency: a few times a week substance use type: does not use diet: diabetic well-balanced diet: daily or most days what type of physical activity do you participate in: walking frequency: 1-2 times per week ROS Constitutional Constitutional: Denies chills, fatigue, fever(s) or weakness Eyes Eyes: Denies change in vision Cardiovascular Cardiovascular: Denies chest pain Respiratory/Chest Respiratory/Chest: Denies shortness of breath at rest Gastrointestinal Gastrointestinal: Denies abdominal pain, constipation, diarrhea, nausea or vomiting Genitourinary Genitourinary: Denies dysuria Musculoskeletal Musculoskeletal: Denies arthralgias or myalgias Neurologic Neurologic: Denies dizziness or headache(s) Physical Exam Const alert, oriented x3 and no apparent distress Constitutional Narrative: Elderly female, class I obesity, mildly fatigued appearing, otherwise sitting up comfortably in bed, conversing normally, in no acute distress. General Appearance: cooperative and comfortable HEENT normocephalic, head/scalp atraumatic, hearing grossly normal bilaterally, nasal mucous membranes and turbinates normal and moist oral mucous membranes Eyes PERRL, EOMs intact bilaterally and conjunctivae normal Neck full ROM Chest inspection of chest normal Resp normal respiratory effort, normal air movement, no use of accessory muscles and clear to auscultation bilaterally Cardio regular rate, regular rhythm, no murmurs and peripheral pulses 2+ throughout GI normal to inspection, nondistended, normoactive bowel sounds, soft to palpation, non-tender and non-distended Back/Spine normal ROM Extremity Extremity Narrative: Left knee in brace with ice packs in place. Skin no rashes or lesions noted Psych mental status grossly normal Lab / Micro Data 08/09/24 15:39 08/09/24 15:39 Labs: Laboratory Results - last 24 hr 08/16/24 09:38: POC Glucose 267 H 08/16/24 12:42: POC Glucose 111 H 08/16/24 15:22: POC Glucose 241 H Imaging Radiology Impression Knee X-Ray 08/16/24 15:20 IMPRESSION: Total left knee arthroplasty in typical positioning and alignment. Electronically Signed: Reese Bone MD at 15:52 EST , Charges/Coding Visit Charges Inpatient E&M: 47238 Subs Hosp L2
[2024-08-16] MEDS: oxyCODONE 5 MG Tablet PO ×2 (17:40→21:46)
--- NOTE | 2024-08-16 17:52 | POSTOPAN2_ITS ---
Anesthesia Postop Eval I Sum Postop Eval Completion status Anesthesia document: Postop Eval 1 completed: Yes Anesthesia Postop Eval I Summary Anesthesia Postop Eval I Summary: Anesthesia Postop Eval I: Assessment Summary Airway patent Yes 08/16/24 15:20 MEAT CUTTER [email or web address] Spontaneous unlabored Yes 08/16/24 15:20 MEAT CUTTER APPRENTICE.[email or web address] respirations Mental status Awake,Calm 08/16/24 15:20 MEAT CUTTER [email or web address].[email or web address] nausea No 08/16/24 15:20 MEAT CUTTER APPRENTICE.[email or web address] Vomiting No 08/16/24 15:20 MEAT CUTTER [email or web address].[email or web address] Anesthesia Postop Eval I: Fluid Summary Crystalloid volume administer 1,200 08/16/24 15:20 MEAT CUTTER [email or web address].[email or web address] (ml) Colloids volume administered ( ml) Blood Product volume administered (ml) Total IV fluid infused 1,200 08/16/24 15:20 MEAT CUTTER APPRENTICE.[email or web address] Anesthesia Postop Eval I: Summary Notes Anesthesia Complication No 08/16/24 15:20 MEAT CUTTER [email or web address].[email or web address] Anesthesia Complication Comment: Post-operative progress note Anesthesia: Postop Eval II Evaluation Mental status: Awake Pain Level: 0 nausea: No Vomiting: No
--- NOTE | 2024-08-16 17:52 | PCM.POSTANE2 ---
Anesthesia Postop Eval I Sum Postop Eval Completion status Anesthesia document: Postop Eval 1 completed: Yes Anesthesia Postop Eval I Summary Anesthesia Postop Eval I Summary: Anesthesia Postop Eval I: Assessment Summary Airway patent Yes 08/16/24 15:20 SHERIFF [email or web address] Spontaneous unlabored Yes 08/16/24 15:20 SHERIFF [email or web address].[email or web address] respirations Mental status Awake,Calm 08/16/24 15:20 SHERIFF [email or web address] nausea No 08/16/24 15:20 SHERIFF [email or web address].[email or web address] Vomiting No 08/16/24 15:20 SHERIFF [email or web address].[email or web address] Anesthesia Postop Eval I: Fluid Summary Crystalloid volume administer 1,200 08/16/24 15:20 SHERIFF [email or web address] (ml) Colloids volume administered ( ml) Blood Product volume administered (ml) Total IV fluid infused 1,200 08/16/24 15:20 SHERIFF [email or web address].[email or web address] Anesthesia Postop Eval I: Summary Notes Anesthesia Complication No 08/16/24 15:20 SHERIFF [email or web address].[email or web address] Anesthesia Complication Comment: Post-operative progress note Anesthesia: Postop Eval II Evaluation Mental status: Awake Pain Level: 0 nausea: No Vomiting: No
[2024-08-16 17:54] LABS: Bedside Glucose 257 mg/dL (74-106)
[2024-08-16] MEDS: amLODIPine 5 MG Tablet PO (21:47)
[2024-08-16] MEDS: Senna/Docusate Sodium 1 Tablet 2 TABLET PO (21:47)
[2024-08-16] MEDS: Methenamine Hippurate 1 GM Tablet PO (21:47)
[2024-08-16 22:29] LABS: Bedside Glucose 337 mg/dL (74-106)
[2024-08-16] MEDS: Cefazolin 1 GM/50 ML BAG IV (22:33)
[2024-08-17 01:36] VITALS: BP 150/66; PULSE 61; RESP 15; TEMP 36.6; O2SAT 96
[2024-08-17] MEDS: Acetaminophen 500 MG Tablet 1000 MG PO ×3 (04:44→21:00)
[2024-08-17] MEDS: Cefazolin 1 GM/50 ML BAG IV (05:48)
[2024-08-17] MEDS: Rivaroxaban 10 MG Tablet PO (05:49)
[2024-08-17] MEDS: Insulin Lispro 100 UNIT/ML INSULN.PEN SC ×4 (06:32→21:03)
[2024-08-17] MEDS: oxyCODONE 5 MG Tablet PO ×4 (06:37→20:54)
[2024-08-17 07:14] LABS: Bedside Glucose 180 mg/dL (74-106)
--- NOTE | 2024-08-17 07:18 | PCM.PN.ORT ---
Subjective Subjective The patient was sitting in bed upon examination. Patient denies any chest pain, shortness of breath, dizziness, lightheadedness, nausea or vomiting, or calf pain. Pain is controlled on medications. No adverse overnight events. Patient states she does have increased pain in the left knee but when she takes her medications they are helpful. She has not had any therapy yesterday due to the case in the afternoon. Infectious disease has been consulted for postoperative use of antibiotics. Objective Data Objective Data Vital Signs: Vital Signs Temp Pulse Resp BP Pulse Ox O2 Del Method O2 Flow Rate 97.9 F 61 15 150/66 H 96 Room Air 2 08/17/24 01:36 08/17/24 01:36 08/17/24 01:36 08/17/24 01:36 08/17/24 01:36 08/17/24 04:00 08/17/24 01:36 FiO2 4 08/16/24 15:10 Oxygen Flow Rate (L/min) 2 Oxygen Delivery Method Room Air Weight: 89.176 kg Body Mass Index (BMI) 31.7 Intake & Output: Intake and Output for Last 24 Hours 08/15/24 08/16/24 08/17/24 23:59 23:59 23:59 Intake Total 1592.00 / 1592.00 350 / 350 Balance 1592.00 / 1592.00 350 / 350 Lab / Micro Data 08/09/24 15:39 08/09/24 15:39 Labs: Laboratory Results - last 24 hr 08/16/24 09:38: POC Glucose 267 H 08/16/24 12:42: POC Glucose 111 H 08/16/24 15:22: POC Glucose 241 H 08/16/24 17:32: POC Glucose 257 H 08/16/24 20:54: POC Glucose 337 H 08/17/24 06:31: POC Glucose 180 H Micro: Microbiology 08/09/24 15:39 Nasal Secretion Nasal Screen MRSA/MSSA - Final Radiography Diagnostic Testing: Radiology Impression Knee X-Ray 08/16/24 15:20 IMPRESSION: Total left knee arthroplasty in typical positioning and alignment. Electronically Signed: Reese Bone MD at 15:52 EST , Physical Exam Narrative Vital signs stable and afebrile. SCDs are on bilaterally. PAKO hose on right lower extremity Prevena incisional wound VAC in place with no evidence of drainage in canister or tubing Patient is able to plantarflex and dorsiflex actively. Sensation is intact to light touch to saphenous, sural, superficial and deep peroneal, and tibial distribution. Negative Homans bilaterally, negative signs and symptoms of DVT. Const alert, oriented x3 and no apparent distress Assessment & Plan Assessment/Plan (1) Status post revision of total replacement of left knee: PLAN: 1. S/P revision left total knee arthroplasty entire femoral and tibial components with removal of antibiotic spacer POD #1 2. Continue Pain Medications: Tylenol and oxycodone 3. DVT Prophylaxis: Patient is currently on Xarelto 10 mg once daily for 2 weeks postoperatively due to hormone therapy. After 2 weeks of Xarelto she will be switched over to aspirin 81 mg twice daily for an additional 2 weeks. She denies past history of DVT or pulmonary embolism. 4. PT/OT: Weightbearing as tolerated with walker. Appreciate recommendations from therapy for appropriate and safe discharge planning 5. H & H: Labs have not been drawn at this time, asymptomatic. Patient has been treated with ferrous sulfate and folic acid. Preoperatively her labs she was on our anemia protocol. Her last hemoglobin was 10.5. Estimated blood loss with surgery was 100 mL. I did advise the patient postoperatively we will be having her follow-up with her primary care provider for continued management of her ongoing chronic anemia. She did voiced understanding. Awaiting labs today to evaluate her postoperative hemoglobin. 6. Consultation infectious disease: Appreciate recommendations for postoperative use of antibiotics. She is currently on doxycycline. Microbiology results are pending. Patient has history of chronic recurrent urinary tract infections and is currently on methenamine. Appreciate recommendations from infectious disease considering the complexity of this patient. 7. Prevena incisional wound VAC: Patient will continue with this wound VAC for 1 week postoperatively with removal date on August 23, 2024. There is currently no evidence of drainage in canister or tubing. 8. Encouraged Incentive Spirometry 9. Patient is aware of postoperative constipation that can occur from 1-3 days postoperatively. Will continue with senna 2 tablets twice daily until first bowel movement. Patient was advised if not having a bowel movement after day 3 she is to contact orthopedics so appropriate change can be made. Patient voiced understanding. 10. Continue postoperative medical treatment per medicine 11. Disposition: Patient is currently not ready for discharge. We are awaiting recommendations from infectious disease and cultures. Appreciate recommendations from physical therapy for appropriate and safe discharge planning. Patient will continue with above medications at this time. Case management is currently involved for discharge planning. I have reviewed the [place] Automated Rx Reporting System (OARRS) report for this patient for refill pattern and other prescriber involvement as part of the appropriate surveillance for the provision of acute and chronic controlled medications. The report was requested and reviewed on the date of this entry and was considered in the prescribing process. This dictation was created using voice recognition software. Phonetic and/or grammatical errors may exist.
[2024-08-17 07:50] LABS: Hematocrit 29.4 % (37-47); Hemoglobin 9.2 g/dL (12.0-15.0); Mean Corp Hgb Conc 31.3 g/dL (32-36); Mean Corpuscular Hgb 27.5 pg (27.0-32.0); Mean Platelet Vol. 10.1 fl (6.2-12.0); Platelet Count 248 K/mm3 (150-450); RBC Distribution Width CV 14.3 % (11.6-14.6); RBC Distribution Width SD 45.9 fl (35.1-43.9); Red Blood Count 3.34 M/mm3 (4.2-5.4); White Blood Count 16.5 K/mm3 (4.4-11.0)
[2024-08-17 08:00] VITALS: BP 134/67; PULSE 70; RESP 16; TEMP 36.4; O2SAT 95
[2024-08-17 08:08] VITALS: BMI 31.7
[2024-08-17 08:14] LABS: Anion Gap 9 (5-15); BUN 21 mg/dL (7-18); BUN/Creat Ratio 21.5 RATIO (10-20); Calcium,Total 9.2 mg/dL (8.5-10.1); Chloride 106 mmol/L (98-107); Creatinine, Serum 0.98 mg/dL (0.55-1.02); EST Glomerular Filtration Rate 58 mL/min (>60); Est Glom Filt Rate - Afr Amer 71 mL/min (>60); Estimated Creatinine Clearance 52.36 ml/min; Glucose 192 mg/dL (74-106); Potassium 4.4 mmol/L (3.5-5.1); Sodium Level 138 mmol/L (136-145)
[2024-08-17] MEDS: Senna/Docusate Sodium 1 Tablet 2 TABLET PO ×2 (08:19→21:00)
[2024-08-17] MEDS: Pantoprazole Sodium 20 MG Tablet PO (08:19)
[2024-08-17] MEDS: Vibegron 75 MG TABLET PO (08:20)
[2024-08-17] MEDS: Lactobacillis Acidophilus 1 CAP PO (08:20)
[2024-08-17] MEDS: Cyanocobalamin 500 MCG Tablet 2000 MCG PO (08:21)
[2024-08-17] MEDS: Methenamine Hippurate 1 GM Tablet PO ×2 (08:21→21:01)
[2024-08-17] MEDS: Folic Acid 1 MG Tablet PO (08:21)
[2024-08-17] MEDS: Famotidine 20 MG Tablet PO (08:21)
[2024-08-17] MEDS: Cholecalciferol (VIT D3) 25 MCG TABLET (1,000 UNITS) 50 MCG PO (08:22)
[2024-08-17] MEDS: Lisinopril 40 MG Tablet PO (08:22)
[2024-08-17] MEDS: Ferrous Sulfate 325 MG Tablet PO (08:23)
[2024-08-17] MEDS: Nystatin/Triamcin Cream Tube 1 APPLIC TOPICAL ×2 (08:33→21:01)
[2024-08-17] MEDS: Calcium (Elemental) 500 MG Tablet 1000 MG PO (08:37)
--- NOTE | 2024-08-17 10:08 | CON.PCM.ID_ITS ---
Assessment & Plan Assessment/Plan (1) Status post revision of total replacement of left knee: PLAN: h/o recurrent uti, dx with L knee PJI, taken to OR 04/27/24 at [facility] by Dr. Casillas for I&D and spacer placement. Surg cx were negative. Given 6 week course iv vanc and ceftriaxone, completed 06/08/24. Started on methenamine for uti prophylaxis. No uti since starting that, but does have some irritation from the med chronically in bladder which resolves with urination. Taken back to OR 08/16/[address] Casillas for 2nd stage replacement. Plan on continuing po doxy, recommend 30 day supply and ID followup in a month. Will continue methenamine for uti prophylaxis as long as she is able to tolerate it. Will follow, thank you HPI Consult Data Date of Consult: 08/17/24 HPI Narrative Reason for Consultation: PJI HPI Narrative: ARSALAN SPENCE, is a 79 F with h/o recurrent uti, dx with L knee PJI, taken to OR 04/27/24 at [facility] by Dr. Casillas for I&D and spacer placement. Surg cx were negative. Given 6 week course iv vanc and ceftriaxone, completed 06/08/24. Started on methenamine for uti prophylaxis. No uti since starting that, but does have some irritation from the med chronically in bladder which resolves with urination. Taken back to OR 08/16/[address] Casillas for 2nd stage replacement. Feeling ok this AM, pain controlled, on po doxy. Full ROS performed and neg except as noted above. [facility] Medical History Wears hearing aid Wears glasses Walker as ambulation aid Low iron High cholesterol Dietary restriction Gastric reflux History of echocardiogram History of stress test Cardiology follow-up encounter History of ESBL E. coli infection Irregular heart beat History of TIA (transient ischemic attack) and stroke Constipation Vaginal irritation Furunculosis Renal stone Insulin dependent diabetes mellitus Bladder disease Back pain Difficulty swallowing History of diverticulitis History of pain when walking History of edema History of irregular heartbeat DDD (degenerative disc disease), lumbar Osteoarthritis Chronic back pain Balance disorder Lumbar radiculopathy Neuropathy Obesity GERD (gastroesophageal reflux disease) Osteoporosis Hearing loss Chronic UTI (urinary tract infection) Glaucoma Essential (primary) hypertension Home Medications ?Medication ?Instructions ?Recorded ?Last Taken ?Type cholecalciferol (vitamin D3) 50 2,000 unit PO DAILY supplement 07/20/19 08/16/24 History mcg (2,000 unit) capsule omeprazole magnesium 20 mg 20 mg PO DAILY PRN Heartburn 07/20/19 08/16/24 History tablet,delayed release (Prilosec OTC) cyanocobalamin (vitamin B-12) 2,000 mcg PO DAILY supplement 06/14/20 08/12/24 History 1,000 mcg capsule omega-3 fatty acids-fish oil 340 1 ea PO DAILY SUPPLEMENT 08/30/20 08/12/24 History mg-1,000 mg capsule blood sugar diagnostic (FreeStyle #100 ea 07/16/21 Unknown Rx Precision Esvin Strips) d-mannose 500 mg capsule 2,100 mg PO BID SUPPLEMENT 03/29/22 08/12/24 History estradiol 0.01% (0.1 mg/gram) 1 appful vaginal MOWEFR HORMONE 04/10/22 08/13/24 History vaginal cream (Estrace) flash glucose sensor (FreeStyle #1 ea 01/23/23 Unknown Rx Shani 2 Sensor kit) Handicap Placard #1 ea 12/24/23 Unknown Rx insulin lispro protamine-lispro 25 unit subcut TID Diabetes 01/29/24 08/15/24 History 100 unit/mL (50-50) subcutaneous pen (Humalog Mix 50-50 KwikPen) folic acid 1 mg tablet 1 mg PO DAILY supplement #90 tabs 02/11/24 08/12/24 Rx ferrous sulfate 325 mg (65 mg 325 mg PO DAILY supplement #90 tabs 04/16/24 08/12/24 Rx iron) tablet methenamine hippurate 1 gram tablet 1 g PO BID URINE PROTECTION 30 06/01/24 08/12/24 Rx days #60 tabs lisinopril 40 mg tablet 40 mg PO DAILY BP #0 tabs 06/09/24 08/15/24 Rx amlodipine 10 mg tablet 5 mg PO QHS BP 07/21/24 08/15/24 History lactobacillus combination no.9 4 4,000 mmu cells PO DAILY SUPPLEMENT 07/21/24 08/12/24 History billion cell capsule (Adult 50 Plus Probiotic) vibegron 75 mg tablet (Gemtesa) 75 mg PO QDAY OAB 07/21/24 08/12/24 History BD Ultra-Fine Short Pen Needle 31 #300 ea 08/02/24 Unknown Rx gauge x 5/16 (pen needle, diabetic) nystatin-triamcinolone 100,000 1 applic topical BID SKIN 08/02/24 08/12/24 History unit/g-0.1 % topical cream acetaminophen 500 mg tablet 1,000 mg PO Q6H PAIN 08/10/24 08/15/24 History (Acetaminophen Extra Strength) calcium carbonate 1,200 mg PO DAILY SUPPLEMENT 08/10/24 08/12/24 History Allergy/AdvReac Type Severity Reaction Status Date / Time ciprofloxacin Allergy Severe impairment Verified 08/16/24 09:25 of motor skills hydrochlorothiazide Allergy Mild other Verified 08/16/24 09:25 gatifloxacin (From Tequin) Allergy Unknown Other Verified 08/16/24 09:25 lidocaine (From Xylocaine) Allergy Unknown Other Verified 08/16/24 09:25 Sulfa (Sulfonamide Allergy Unknown unknown Verified 08/16/24 09:25 Antibiotics) metformin AdvReac Intermediate loose Verified 08/16/24 09:25 stool, bladder infections sitagliptin (From Janumet) AdvReac Intermediate loose stool Verified 08/16/24 09:25 batroxobin AdvReac Unknown unknown Verified 08/16/24 09:25 exenatide (From Byetta) AdvReac Unknown unknown Verified 08/16/24 09:25 nizatidine (From Axid) AdvReac Unknown unknown Verified 08/16/24 09:25 sertraline (From Zoloft) AdvReac Unknown unknown Verified 08/16/24 09:25 simvastatin (From Zocor) AdvReac Unknown unknown Verified 08/16/24 09:25 trandolapril (From Mavik) AdvReac Unknown unknown Verified 08/16/24 09:25 betaxolol AdvReac Other Verified 08/16/24 09:25 doxazosin AdvReac Other Verified 08/16/24 09:25 olmesartan (From Benicar) AdvReac Diarrhea Verified 08/16/24 09:25 Family History Mother CVA (cerebral vascular accident) Aunt Breast cancer Surgical History Hx of total knee arthroplasty Hx of total knee arthroplasty S/P total hip arthroplasty S/P hip hemiarthroplasty History of total left hip replacement Hx of arthroscopic knee surgery Hx of eye surgery Hx of bilateral cataract extraction Hx of total knee arthroplasty Hx of knee surgery Hx of total knee arthroplasty H/O foot surgery H/O: hysterectomy History of cataract surgery H/O tubal ligation History of cholecystectomy History of tonsillectomy Social History household members: spouse Smoking Status: Never smoker alcohol intake: current alcohol intake frequency: a few times a week substance use type: does not use diet: diabetic well-balanced diet: daily or most days what type of physical activity do you participate in: walking frequency: 1-2 times per week Physical Exam Const alert, oriented x3 and no apparent distress General Appearance: cooperative HEENT normocephalic and head/scalp atraumatic Eyes PERRL and EOMs intact bilaterally Neck supple and No nodes Resp normal air movement and clear to auscultation bilaterally Cardio regular rate and regular rhythm GI soft to palpation, non-tender and non-distended Extremity General Extremity: Negative for edema Skin no rashes or lesions noted Neuro CN's II-XII intact bilaterally Lab / Micro Data Attestation: I reviewed the patient's lab results. 08/17/24 07:25 08/17/24 07:25 Labs: Laboratory Results - last 24 hr 08/16/24 09:38: POC Glucose 267 H 08/16/24 12:42: POC Glucose 111 H 08/16/24 15:22: POC Glucose 241 H 08/16/24 17:32: POC Glucose 257 H 08/16/24 20:54: POC Glucose 337 H 08/17/24 06:31: POC Glucose 180 H 08/17/24 07:25: WBC 16.5 H, RBC 3.34 L, Hgb 9.2 L, Hct 29.4 L, MCV 88.0, MCH 27.5, MCHC 31.3 L, RDW Std Deviation 45.9 H, RDW Coeff of Rainer 14.3, Plt Count 248, MPV 10.1, Sodium 138, Potassium 4.4, Chloride 106, Carbon Dioxide 23.0, Anion Gap 9, BUN 21 H, Creatinine 0.98, Estim Creat Clear Calc 52.36, Est GFR (MDRD) Af Amer 71, Est GFR (MDRD) Non-Af 58 L, BUN/Creatinine Ratio 21.5 H, G lucose 192 H, Calcium 9.2 Micro: Microbiology 08/16/24 12:50 Tissue - Knee Wound Culture - Preliminary No growth-Final to follow 08/16/24 12:48 Tissue - Knee Wound Culture - Preliminary No growth-Final to follow 08/16/24 12:40 Tissue - Knee Wound Culture - Preliminary No growth-Final to follow Imaging Radiology Impression Knee X-Ray 08/16/24 15:20 IMPRESSION: Total left knee arthroplasty in typical positioning and alignment. Electronically Signed: Reese Bone MD at 15:52 EST ,
--- NOTE | 2024-08-17 10:43 | CASEMGMT ---
KELSEY SHUKLA Assessment Face to Face with patient for initial transition planning/care coordination assessment. KELSEY SHUKLA introduced self and role at [facility], pt voices understanding. Pt is A&Ox4 and is resting comfortably in the chair and is calm. Care providers, pharmacy, and demographics verified. Admitting dx: ERAS, Revision LTK LACE Strata: 2 PCP: Yelitza Specialists: Sonja (Ortho)Kal (ID) Preferred Pharmacy: [facility] Insurance: MCR A/B, MMO Prescription Benefit: Yes LNOK: Ezequiel (H) Living Arrangements: Pt lives with her in a single story home with 4 steps to enter with one handrail on the right side. Pt states that she was unable to practice steps today with therapy d/t pain. Pt requests to try tomorrow. PT is following. ADLs/IADLs: Reports ind prior Transportation: Pt does not drive. Pt drives. Denies concerns DME: Pt takes insulin shots and has a CBGM with sufficient supplies. Pt has her FWW in the room. Pt also has a rollator, cane, walk in shower with a chair and GB, BP monitor, and recliner. HHC/SNF: Denies HH history. Pt has been to the TCU in the past Pt?s goal: Regain strength, decrease pain, and return to PLOF Plan: TBD. Anticipate SNF vs HH vs OP Tx. Follow for IV ATB needs. At this time, the pt is unsure of what she will need or want at time of DC. Pt states that she would be agreeable to admission to the TCU, if warranted. DC planning will be contingent on how the pt progresses with therapy. Report given to MSMarsha COLE CM. GAYLA to follow. Marta Mary RN, CM
[2024-08-17 12:25] LABS: Bedside Glucose 258 mg/dL (74-106)
[2024-08-17 12:37] VITALS: BMI 31.7
[2024-08-17] MEDS: Doxycycline 100 MG CAPSULE PO ×2 (12:41→20:59)
[2024-08-17] MEDS: Morphine 2 MG/ML Syringe IV (12:44)
[2024-08-17 14:00] VITALS: BP 128/53; PULSE 65; RESP 16; TEMP 36.6; O2SAT 96
--- NOTE | 2024-08-17 15:25 | CHAPLAIN ---
Type of Pastoral Visit _x__ Initial Visit ___ Follow-up Visit ___ On-call Visit ___ General Patient Visit ___ Spiritual Assessment ___ Family Conference ___ Bereavement ___ Rapid Response ___ Code Blue ___ Other (describe below) Pastoral Care Referral From _x__ Patient ___ Family ___ Nurse ___ Physician ___ Sock Ironer ___ Mmd Unit Teacher ___ Other (describe below) Sacrament/Intervention _x__ Active listening ___ Anointing ___ Mormon ___ Bereavement ___ Communion ___ Shara exploration ___ ___ Life review _x__ Prayer ___ Reconciliation ___ Sacrament of Sick _x__ Supportive presence ___ Wedding ___ Other (describe below) Pastoral Comments patient has been seen before in previous admissions; pt reviews her progress over previous surgery and the current result of the latest surgery; pt is holding on to hope that this will be successful; pt states worries enough for both of us, today is has his own doctor's appointment; pt welcomes someone to talk with and for a prayer; pt is hopeful about a new situation in her [facility] with 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
[2024-08-17 16:37] VITALS: BMI 31.7
[2024-08-17 18:25] LABS: Bedside Glucose 198 mg/dL (74-106)
[2024-08-17 20:49] VITALS: BP 121/46; PULSE 70; RESP 16; TEMP 36.8; O2SAT 94
[2024-08-17 20:51] VITALS: BMI 31.7
[2024-08-17] MEDS: amLODIPine 5 MG Tablet PO (21:00)
[2024-08-17] MEDS: Morphine 4 MG/ML Syringe IV (22:08)
[2024-08-17 23:16] LABS: Bedside Glucose 195 mg/dL (74-106)
[2024-08-18] VITALS (7 sets, daily range): BP systolic 138–181; BP diastolic 53–74; PULSE 68–88; RESP 16; TEMP 36.8–37.6; O2SAT 92–97
[2024-08-18] MEDS: oxyCODONE 5 MG Tablet PO ×4 (02:20→23:01)
[2024-08-18] MEDS: Rivaroxaban 10 MG Tablet PO (05:37)
[2024-08-18 05:38] LABS: Hematocrit 28.2 % (37-47); Hemoglobin 8.8 g/dL (12.0-15.0); Mean Corp Hgb Conc 31.2 g/dL (32-36); Mean Corpuscular Hgb 27.5 pg (27.0-32.0); Mean Corpuscular Volume 88.1 fL (81-99); Mean Platelet Vol. 10.4 fl (6.2-12.0); Platelet Count 247 K/mm3 (150-450); RBC Distribution Width CV 14.7 % (11.6-14.6); RBC Distribution Width SD 47.5 fl (35.1-43.9); White Blood Count 12.8 K/mm3 (4.4-11.0)
[2024-08-18] MEDS: Acetaminophen 500 MG Tablet 1000 MG PO ×3 (05:38→22:53)
[2024-08-18] MEDS: Lisinopril 40 MG Tablet PO (05:42)
[2024-08-18 06:09] LABS: Anion Gap 7 (5-15); BUN 21 mg/dL (7-18); BUN/Creat Ratio 22.8 RATIO (10-20); Calcium,Total 9.5 mg/dL (8.5-10.1); Chloride 105 mmol/L (98-107); Creatinine, Serum 0.92 mg/dL (0.55-1.02); EST Glomerular Filtration Rate 62 mL/min (>60); Est Glom Filt Rate - Afr Amer 76 mL/min (>60); Estimated Creatinine Clearance 55.77 ml/min; Glucose 157 mg/dL (74-106); Potassium 4.3 mmol/L (3.5-5.1); Sodium Level 138 mmol/L (136-145)
[2024-08-18] MEDS: Insulin Lispro 100 UNIT/ML INSULN.PEN SC ×4 (06:51→22:55)
[2024-08-18 07:29] LABS: Bedside Glucose 156 mg/dL (74-106)
[2024-08-18] MEDS: Ensure Surgery 237 ML LIQUID PO (07:51)
[2024-08-18] MEDS: Morphine 2 MG/ML Syringe IV (07:58)
[2024-08-18] MEDS: Ferrous Sulfate 325 MG Tablet PO (10:07)
[2024-08-18] MEDS: Lactobacillis Acidophilus 1 CAP PO (10:07)
[2024-08-18] MEDS: Doxycycline 100 MG CAPSULE PO ×2 (10:07→22:54)
[2024-08-18] MEDS: Folic Acid 1 MG Tablet PO (10:07)
[2024-08-18] MEDS: Vibegron 75 MG TABLET PO (10:08)
[2024-08-18] MEDS: Methenamine Hippurate 1 GM Tablet PO ×2 (10:08→22:54)
[2024-08-18] MEDS: Calcium (Elemental) 500 MG Tablet 1000 MG PO (10:09)
[2024-08-18] MEDS: Nystatin/Triamcin Cream Tube 1 APPLIC TOPICAL ×2 (10:09→22:54)
[2024-08-18] MEDS: Famotidine 20 MG Tablet PO (10:10)
[2024-08-18] MEDS: Cholecalciferol (VIT D3) 25 MCG TABLET (1,000 UNITS) 50 MCG PO (10:10)
[2024-08-18] MEDS: Cyanocobalamin 500 MCG Tablet 2000 MCG PO (10:10)
[2024-08-18] MEDS: Senna/Docusate Sodium 1 Tablet 2 TABLET PO ×2 (10:10→22:53)
--- NOTE | 2024-08-18 10:37 | PN.ORTHO_ITS ---
Subjective Subjective The patient was sitting in bed upon examination. Patient denies any chest pain, shortness of breath, dizziness, lightheadedness, nausea or vomiting, or calf pain. Patient does report increased pain with the knee today. She has required IV morphine. Infectious disease has been consulted and currently recommending continuing p.o. doxycycline for 30 days postoperatively. Recommend follow-up in 1 month with infectious disease. Case was discussed with the physical therapist and states patient has struggled more today. She was mod assist x 2. They are recommending retirement facility upon discharge. Case management currently involved. Patient has chronic anemia in which most recent hemoglobin today was 8.8. She denies any dizziness or lightheadedness. Vitals have been stable. She continues on her ferrous sulfate. Objective Data Objective Data Vital Signs: Vital Signs Temp Pulse Resp BP Pulse Ox O2 Del Method O2 Flow Rate 98.8 F 68 16 138/53 H 93 Room Air 2 08/18/24 07:43 08/18/24 07:43 08/18/24 07:43 08/18/24 07:43 08/18/24 07:43 08/18/24 07:43 08/17/24 01:36 FiO2 4 08/16/24 15:10 Oxygen Flow Rate (L/min) 2 Oxygen Delivery Method Room Air Weight: 89.176 kg Body Mass Index (BMI) 31.7 Intake & Output: Intake and Output for Last 24 Hours 08/16/24 08/17/24 08/18/24 23:59 23:59 23:59 Intake Total 1592.00 / 1592.00 350 / 550 400 / 400 Balance 1592.00 / 1592.00 350 / 550 400 / 400 Lab / Micro Data 08/18/24 04:26 08/18/24 04:26 Labs: Laboratory Results - last 24 hr 08/17/24 11:30: POC Glucose 258 H 08/17/24 16:46: POC Glucose 198 H 08/17/24 20:59: POC Glucose 195 H 08/18/24 04:26: WBC 12.8 H, RBC 3.20 L, Hgb 8.8 L, Hct 28.2 L, MCV 88.1, MCH 27.5, MCHC 31.2 L, RDW Std Deviation 47.5 H, RDW Coeff of Rainer 14.7 H, Plt Count 247, MPV 10.4, Sodium 138, Potassium 4.3, Chloride 105, Carbon Dioxide 27.0, Anion Gap 7, BUN 21 H, Creatinine 0.92, Estim Creat Clear Calc 55.77, Est GFR (MDRD) Af Amer 76, Est GFR (MDRD) Non-Af 62, BUN/Creatinine Ratio 22.8 H, G lucose 157 H, Calcium 9.5 08/18/24 06:50: POC Glucose 156 H Micro: Microbiology 08/16/24 12:40 Tissue - Knee Gram Stain - Final 08/16/24 12:40 Tissue - Knee Wound Culture - Preliminary No growth-Final to follow 08/16/24 12:50 Tissue - Knee Gram Stain - Final 08/16/24 12:50 Tissue - Knee Wound Culture - Preliminary No growth-Final to follow 08/16/24 12:48 Tissue - Knee Gram Stain - Final 08/16/24 12:48 Tissue - Knee Wound Culture - Preliminary No growth-Final to follow 08/09/24 15:39 Nasal Secretion Nasal Screen MRSA/MSSA - Final Physical Exam Narrative Vital signs stable and afebrile. SCDs are in place bilaterally with PAKO hose on the right. Prevena incisional wound VAC in place with some drainage primarily in the tubing he had minimal in the canister Patient is able to plantarflex and dorsiflex actively. Sensation is intact to light touch to saphenous, sural, superficial and deep peroneal, and tibial distribution. Negative Homans bilaterally, negative signs and symptoms of DVT. Const alert, oriented x3 and no apparent distress Assessment & Plan Assessment/Plan (1) Status post revision of total replacement of left knee: PLAN: 1. S/P revision left total knee arthroplasty entire femoral and tibial components with removal of antibiotic spacer POD #2 2. Continue Pain Medications: Tylenol and oxycodone. Patient has required some IV morphine and we discussed weaning off of the IV pain medications. Due to her anticoagulation and risk of bleeding we will avoid nonsteroidal anti- inflammatories. She will continue with the oxycodone every 4 hours as needed for pain in addition to the Tylenol. 3. DVT Prophylaxis: Patient is currently on Xarelto 10 mg once daily for 2 weeks postoperatively due to hormone therapy. After 2 weeks of Xarelto she will be switched over to aspirin 81 mg twice daily for an additional 2 weeks. She denies past history of DVT or pulmonary embolism. 4. PT/OT: Weightbearing as tolerated with walker. Per physical therapy patient struggled more today with regards to her left knee. She has a mod assist x 2 with limited mobility. They are recommending retirement facility. Case management currently on board with possible discharge to transitional care unit. 5. H & H: Labs today currently 8.8/28.2, asymptomatic. Vitals have been stable. She does have ongoing chronic anemia in which patient has been treated with ferrous sulfate and folic acid. Preoperatively her last hemoglobin was 10.5. Estimated blood loss with surgery was 100 mL. I did advise the patient postoperatively we will be having her follow-up with her primary care provider for continued management of her ongoing chronic anemia. She did voiced understanding. Discussed with case management scheduling follow-up upon discharge for continued management 6. Reactive leukocytosis: Trending down currently 12.8, Afebrile. Patient did receive Decadron intraoperatively. No clinical signs of infection. 7. Consultation infectious disease: Infectious disease has recommended oral doxycycline for 1 month postoperatively. Will require 1 month follow-up with infectious disease. Microbiology wound and tissue specimens were reviewed in chart and there is currently no growth or organisms seen today. I discussed with the patient potential side effects of doxycycline including sensitivity to the sunlight and increased risk of skin burn. Recommend patient take appropriate precautions. Also recommend patient to take probiotic while on the antibiotic. Patient voiced understanding agreement. 8. Prevena incisional wound VAC: Patient will continue with this wound VAC for 1 week postoperatively with removal date on August 23, 2024. There is minimal drainage primarily in tubing and little in canister. 9. Encouraged Incentive Spirometry 10. Patient is aware of postoperative constipation that can occur from 1-3 days postoperatively. Will continue with senna 2 tablets twice daily until first bowel movement. Patient was advised if not having a bowel movement after day 3 she is to contact orthopedics so appropriate change can be made. Patient voiced understanding. 11. Continue postoperative medical treatment per medicine 12. Disposition: Case has been discussed with physical therapist, nursing, and case management. Physical therapy is recommending discharge to retirement facility. Case management is currently looking into the transitional care unit at [facility]. Patient will require 3 midnight stay. While in the hospital she will continue to focus and work on exercises with the physical therapist. Continue above medications. I discussed with the older adult social work specialist scheduling appropriate appointments postoperatively including infectious disease and primary care physician. Will continue above recommendations from infectious disease. Repeat labs tomorrow. I have reviewed the [place] Automated Rx Reporting System (OARRS) report for this patient for refill pattern and other prescriber involvement as part of the appropriate surveillance for the provision of acute and chronic controlled medications. The report was requested and reviewed on the date of this entry and was considered in the prescribing process. This dictation was created using voice recognition software. Phonetic and/or grammatical errors may exist.
[2024-08-18 11:58] LABS: Bedside Glucose 190 mg/dL (74-106)
--- NOTE | 2024-08-18 12:11 | CASEMGMT ---
Social Work- SW received notice that pt would like referral to TCU. Pt accepted and can admit tomorrow. SW updated pt. SW called pt spouse to provide updates. SW will remain available to follow. Plan: HEMANTH Lowe
--- NOTE | 2024-08-18 14:43 | NS ---
Addendum entered and electronically signed by Izzy Interiano 08/18/24 14:48: Will change diet to carbohydrate-controlled given hx of DM and elevated blood glucose levels. Original Note: Blood glucose elevated; will add 240mL glucerna shake BID with meals instead of ensure surgery. Pt has not been receiving ensure surgery due to not stocked on floor per KELSEY Thompson.
[2024-08-18 16:35] LABS: Bedside Glucose 176 mg/dL (74-106)
[2024-08-18] MEDS: amLODIPine 5 MG Tablet PO (22:53)
[2024-08-18 23:27] LABS: Bedside Glucose 167 mg/dL (74-106)
[2024-08-19 06:18] LABS: Hematocrit 27.3 % (37-47); Hemoglobin 8.5 g/dL (12.0-15.0); Mean Corp Hgb Conc 31.1 g/dL (32-36); Mean Corpuscular Hgb 27.5 pg (27.0-32.0); Mean Corpuscular Volume 88.3 fL (81-99); Mean Platelet Vol. 10.4 fl (6.2-12.0); Platelet Count 248 K/mm3 (150-450); RBC Distribution Width CV 14.8 % (11.6-14.6); RBC Distribution Width SD 47.5 fl (35.1-43.9); Red Blood Count 3.09 M/mm3 (4.2-5.4); White Blood Count 12.1 K/mm3 (4.4-11.0)
--- NOTE | 2024-08-19 06:38 | PCM.PN.ORT ---
Subjective Subjective The patient was sitting in bed sleeping upon examination. Patient denies any chest pain, shortness of breath, dizziness, lightheadedness, nausea or vomiting, or calf pain. Pain is controlled on medications. No adverse overnight events. Patient did get approval for discharge to the transitional care unit at [facility] today. Case management has been involved. Patient's hemoglobin has overall been stable. Currently 8.5 this morning. Plan will be for patient to continue her ferrous sulfate and will need follow-ups with her primary care physician upon discharge from the TCU. Patient has also been followed by infectious disease who is recommending doxycycline for 30 days postoperatively. She will also require follow-up with infectious disease. Objective Data Objective Data Vital Signs: Vital Signs Temp Pulse Resp BP Pulse Ox O2 Del Method O2 Flow Rate 98.4 F 88 16 164/74 H 94 Room Air 2 08/18/24 22:50 08/18/24 22:50 08/18/24 22:50 08/18/24 22:50 08/18/24 22:50 08/18/24 22:50 08/17/24 01:36 FiO2 4 08/16/24 15:10 Oxygen Flow Rate (L/min) 2 Oxygen Delivery Method Room Air Weight: 89.176 kg Body Mass Index (BMI) 31.7 Intake & Output: Intake and Output for Last 24 Hours 08/17/24 08/18/24 08/19/24 23:59 23:59 23:59 Intake Total 350 / 550 400 / 600 200 / 200 Balance 350 / 550 400 / 600 200 / 200 Lab / Micro Data 08/19/24 05:25 08/18/24 04:26 Labs: Laboratory Results - last 24 hr 08/18/24 06:50: POC Glucose 156 H 08/18/24 11:39: POC Glucose 190 H 08/18/24 16:08: POC Glucose 176 H 08/18/24 22:51: POC Glucose 167 H 08/19/24 05:25: WBC 12.1 H, RBC 3.09 L, Hgb 8.5 L, Hct 27.3 L, MCV 88.3, MCH 27.5, MCHC 31.1 L, RDW Std Deviation 47.5 H, RDW Coeff of Rainer 14.8 H, Plt Count 248, MPV 10.4 Micro: Microbiology 08/16/24 12:50 Tissue - Knee Gram Stain - Final 08/16/24 12:50 Tissue - Knee Wound Culture - Preliminary No growth-Final to follow 08/16/24 12:50 Tissue - Knee Anaerobic Culture - Preliminary No growth in 48 hours. 08/16/24 12:48 Tissue - Knee Gram Stain - Final 08/16/24 12:48 Tissue - Knee Wound Culture - Preliminary No growth-Final to follow 08/16/24 12:48 Tissue - Knee Anaerobic Culture - Preliminary No growth in 48 hours. 08/16/24 12:40 Tissue - Knee Gram Stain - Final 08/16/24 12:40 Tissue - Knee Wound Culture - Preliminary No growth-Final to follow 08/16/24 12:40 Tissue - Knee Anaerobic Culture - Preliminary No growth in 48 hours. 08/09/24 15:39 Nasal Secretion Nasal Screen MRSA/MSSA - Final Physical Exam Narrative Vital signs stable and afebrile. SCDs are in place bilaterally, PAKO hose on the right lower extremity Prevena incisional wound VAC in place with drainage in canister and tubing Patient is able to plantarflex and dorsiflex actively. Sensation is intact to light touch to saphenous, sural, superficial and deep peroneal, and tibial distribution. Negative Homans bilaterally, negative signs and symptoms of DVT. Const alert, oriented x3 and no apparent distress Assessment & Plan Assessment/Plan (1) Status post revision of total replacement of left knee: PLAN: 1. S/P revision left total knee arthroplasty entire femoral and tibial components with removal of antibiotic spacer POD #3 2. Continue Pain Medications: Tylenol and oxycodone. Patient has required some IV morphine and we discussed weaning off of the IV pain medications. Due to her anticoagulation and risk of bleeding we will avoid nonsteroidal anti-inflammatories. She will continue with the oxycodone every 4 hours as needed for pain in addition to the Tylenol. 3. DVT Prophylaxis: Patient is currently on Xarelto 10 mg once daily for 2 weeks postoperatively due to hormone therapy. After 2 weeks of Xarelto she will be switched over to aspirin 81 mg twice daily for an additional 2 weeks. She denies past history of DVT or pulmonary embolism. 4. PT/OT: Weightbearing as tolerated with walker. Per physical therapy patient struggled more today with regards to her left knee. She has a mod assist x 2 with limited mobility. They are recommending alf facility. Case management currently on board with possible discharge to transitional care unit. 5. Acute on chronic anemia, H & H: Labs today currently 8.5/27.3, asymptomatic. Vitals have been stable. She does have ongoing chronic anemia in which patient has been treated with ferrous sulfate and folic acid. Preoperatively her last hemoglobin was 10.5. Estimated blood loss with surgery was 100 mL. I did advise the patient postoperatively we will be having her follow-up with her primary care provider for continued management of her ongoing chronic anemia. She did voiced understanding. Discussed with case management scheduling follow-up upon discharge for continued management 6. Reactive leukocytosis: Trending down currently 12.1, Afebrile. Patient did receive Decadron intraoperatively. No clinical signs of infection. 7. Consultation infectious disease: Infectious disease has recommended oral doxycycline for 1 month postoperatively. Will require 1 month follow-up with infectious disease. Microbiology wound and tissue specimens were reviewed in chart and there is currently no growth or organisms seen today. I discussed with the patient potential side effects of doxycycline including sensitivity to the sunlight and increased risk of skin burn. Recommend patient take appropriate precautions. Also recommend patient to take probiotic while on the antibiotic. Patient voiced understanding agreement. 8. Prevena incisional wound VAC: Patient will continue with this wound VAC for 1 week postoperatively with removal date on August 24, 2024. There is minimal drainage primarily in tubing and little in canister. 9. Encouraged Incentive Spirometry 10. Patient is aware of postoperative constipation that can occur from 1-3 days postoperatively. Will continue with senna 2 tablets twice daily until first bowel movement. If patient does not have a bowel movement by day 3 would recommend adjustment by physician at the transitional care unit. 11. Continue postoperative medical treatment per medicine 12. Disposition: Case has been discussed with Dr. Oren Casillas. Patient does have approval for discharge to the transitional care unit at [facility] today. Her labs have been stable. She has been dealing with acute on chronic anemia. She will continue with her ferrous sulfate and folic acid. I did discuss with case management yesterday for patient to get scheduled appointment upon discharge from the transitional care unit with her primary care physician for continued management. She will also require 1 month follow-up with infectious disease Dr. Bowden. Patient will continue with the Tylenol and oxycodone for pain control. Due to hormone therapy she will continue with the Xarelto for 2 weeks postoperatively followed by an additional 2 weeks of aspirin 81 mg twice daily. Patient has scheduled follow-up with [facility] in 2 weeks. At that time we will plan for suture removal as long as incision is healing appropriately and x-rays of the knee. I would recommend the transitional care unit removing the Prevena incisional wound VAC on August 24, 2024. Upon discharge patient has been instructed to contact our office with any concerns or questions. I have reviewed the [place] Automated Rx Reporting System (OARRS) report for this patient for refill pattern and other prescriber involvement as part of the appropriate surveillance for the provision of acute and chronic controlled medications. The report was requested and reviewed on the date of this entry and was considered in the prescribing process. This dictation was created using voice recognition software. Phonetic and/or grammatical errors may exist.
--- NOTE | 2024-08-19 06:45 | PCM.TXEXTCAR ---
Diet Diet Order/Speech Therapy: 08/18/24 14:46 Diet: Carbohydrate Controlled Food consistency:: Regular Liquid Consistency:: Regular/Thin Type of Dietary Supplement:: Glucerna Shake Diet Comments: 240mL glucerna shake w/ breakfast and dinner Routine Orders/Code Status Routine Lab Work: CBC (Recommend CBC in 2-3 days for continued following of acute on chronic anemia) Code Status: Full Code DC O2, CPAP, BIPAP needs PSN CPAP & BiPAP: BiPAP & CPAP Settings per PSN Fraction of Inspired Oxygen ( 4 08/16/24 15:10 FIO2) Additional Home O2 Discharge instructions: No Wound(s) LEFT KNEE: Wound Type: Surgical Incision Dressing Change: Remove Prevena incisional wound VAC on August 24, 2024 Therapies Weight Bearing: Weight bearing as tolerated (With walker) Physical Therapy: Eval and Treat Occupational Therapy: Eval and Treat Problem/Diagnosis (1) Status post revision of total replacement of left knee: Status: Acute Code(s): Z96.652 - Presence of left artificial knee joint Plan: 1. S/P revision left total knee arthroplasty entire femoral and tibial components with removal of antibiotic spacer POD #3 2. Continue Pain Medications: Tylenol and oxycodone. Patient has required some IV morphine and we discussed weaning off of the IV pain medications. Due to her anticoagulation and risk of bleeding we will avoid nonsteroidal anti-inflammatories. She will continue with the oxycodone every 4 hours as needed for pain in addition to the Tylenol. 3. DVT Prophylaxis: Patient is currently on Xarelto 10 mg once daily for 2 weeks postoperatively due to hormone therapy. After 2 weeks of Xarelto she will be switched over to aspirin 81 mg twice daily for an additional 2 weeks. She denies past history of DVT or pulmonary embolism. 4. PT/OT: Weightbearing as tolerated with walker. Per physical therapy patient struggled more today with regards to her left knee. She has a mod assist x 2 with limited mobility. They are recommending halfway facility. Case management currently on board with possible discharge to transitional care unit. 5. Acute on chronic anemia, H & H: Labs today currently 8.5/27.3, asymptomatic. Vitals have been stable. She does have ongoing chronic anemia in which patient has been treated with ferrous sulfate and folic acid. Preoperatively her last hemoglobin was 10.5. Estimated blood loss with surgery was 100 mL. I did advise the patient postoperatively we will be having her follow-up with her primary care provider for continued management of her ongoing chronic anemia. She did voiced understanding. Discussed with case management scheduling follow-up upon discharge for continued management 6. Reactive leukocytosis: Trending down currently 12.1, Afebrile. Patient did receive Decadron intraoperatively. No clinical signs of infection. 7. Consultation infectious disease: Infectious disease has recommended oral doxycycline for 1 month postoperatively. Will require 1 month follow-up with infectious disease. Microbiology wound and tissue specimens were reviewed in chart and there is currently no growth or organisms seen today. I discussed with the patient potential side effects of doxycycline including sensitivity to the sunlight and increased risk of skin burn. Recommend patient take appropriate precautions. Also recommend patient to take probiotic while on the antibiotic. Patient voiced understanding agreement. 8. Prevena incisional wound VAC: Patient will continue with this wound VAC for 1 week postoperatively with removal date on August 24, 2024. There is minimal drainage primarily in tubing and little in canister. 9. Encouraged Incentive Spirometry 10. Patient is aware of postoperative constipation that can occur from 1-3 days postoperatively. Will continue with senna 2 tablets twice daily until first bowel movement. If patient does not have a bowel movement by day 3 would recommend adjustment by physician at the transitional care unit. 11. Continue postoperative medical treatment per medicine 12. Disposition: Case has been discussed with Dr. Oren Casillas. Patient does have approval for discharge to the transitional care unit at [facility] today. Her labs have been stable. She has been dealing with acute on chronic anemia. She will continue with her ferrous sulfate and folic acid. I did discuss with case management yesterday for patient to get scheduled appointment upon discharge from the transitional care unit with her primary care physician for continued management. She will also require 1 month follow-up with infectious disease Dr. Bowden. Patient will continue with the Tylenol and oxycodone for pain control. Due to hormone therapy she will continue with the Xarelto for 2 weeks postoperatively followed by an additional 2 weeks of aspirin 81 mg twice daily. Patient has scheduled follow-up with [facility] in 2 weeks. At that time we will plan for suture removal as long as incision is healing appropriately and x-rays of the knee. I would recommend the transitional care unit removing the Prevena incisional wound VAC on August 24, 2024. Upon discharge patient has been instructed to contact our office with any concerns or questions. I have reviewed the [place] Automated Rx Reporting System (OARRS) report for this patient for refill pattern and other prescriber involvement as part of the appropriate surveillance for the provision of acute and chronic controlled medications. The report was requested and reviewed on the date of this entry and was considered in the prescribing process. This dictation was created using voice recognition software. Phonetic and/or grammatical errors may exist. Allergies/Procedures Done in Hospital Allergies ciprofloxacin Allergy (Severe, Verified 08/16/24 09:25) impairment of motor skills hydrochlorothiazide Allergy (Mild, Verified 08/16/24 09:25) other bloating gatifloxacin (From Tequin) Allergy (Unknown, Verified 08/16/24:25) Other lidocaine (From Xylocaine) Allergy (Unknown, Verified 08/16/24:25) Other Sulfa (Sulfonamide Antibiotics) Allergy (Unknown, Verified 08/16/24 09:25) unknown burning metformin Adverse Reaction (Intermediate, Verified 08/16/24 09:25) loose stool, bladder infections sitagliptin (From Janumet) Adverse Reaction (Intermediate, Verified 08/16/24 09:25) loose stool batroxobin Adverse Reaction (Unknown, Verified 08/16/24 09:25) unknown exenatide (From Byetta) Adverse Reaction (Unknown, Verified 08/16/24 09:25) unknown nizatidine (From Axid) Adverse Reaction (Unknown, Verified 08/16/24 09:25) unknown sertraline (From Zoloft) Adverse Reaction (Unknown, Verified 08/16/24 09:25) unknown simvastatin (From Zocor) Adverse Reaction (Unknown, Verified 08/16/24 09:25) unknown trandolapril (From Mavik) Adverse Reaction (Unknown, Verified 08/16/24 09:25) unknown betaxolol Adverse Reaction (Verified 08/16/24 09:25) Other doxazosin Adverse Reaction (Verified 08/16/24:25) Other olmesartan (From Benicar) Adverse Reaction (Verified 08/16/24 09:25) Diarrhea Procedures: Wound Vac placement and - (Revision left total knee arthroplasty entire femoral and tibial component with removal of antibiotic spacer on August 16, 2024) Type of Care/Length of Stay Estimated LOS: Convalescent Care Less Than 30 days Type of Care Needed: Skilled Rehab Potential: Good Prognosis: Good Additional Orders/Day of Discharge Day of Discharge: 08/19/24 Discharge Plan Admission Admit Date/Time: 08/16/24 14:20 Attending Provider: Oren Casillas Primary Care Provider: Luther Torre Consulting Providers: Dontrell Melendrez; Jc Bowden; Santiago Ambriz Instructions Additional Instructions / Restrictions: 1. Pain regimen: Continue Exer strength Tylenol 500 mg 2 tablets 3 times daily. Will also use oxycodone 5 mg 1-2 tablets every 4 hours as needed for breakthrough pain. 2. DVT prophylaxis plan: Due to hormone therapy patient will use Xarelto 10 mg once daily for 2 weeks postoperatively. On August 30, 2024 patient should then transition to aspirin 81 mg twice daily for an additional 2 weeks. 3. Prevena incisional wound VAC: Remove incisional wound VAC on August 24, 2024. At that time okay to use ABD and Juan Luis wrap. Do not use any tape on knee. Once the incisional wound VAC has been removed it is okay for patient to get the left knee wet with shower as long as there are no wound complications or concerns. Do not submerge underwater for 6 weeks postoperatively. No use of any topical ointments over the incision for 6 weeks postoperatively. 4. PAKO hose: Continue PAKO hose for 2 weeks postoperatively. Okay to remove at nighttime. PAKO hose should be back on bilateral lower extremities during the day. 5. PT/OT: Weightbearing as tolerated with walker. Progress range of motion and strengthening exercises 6. Postoperative antibiotics: Per Dr. Bowden recommend 30 days of oral doxycycline and 1 month follow-up with infectious disease. Patient will continue the methenamine for UTI prophylaxis as long as she is able to tolerate this medication. 7. Acute on chronic anemia: Recommend follow-up lab work in 2-3 days with repeat CBC. Patient will require follow-up with primary care physician upon discharge for continued management and treatment. Discharge Orders/Prescriptions Prescriptions: New doxycycline monohydrate 100 mg Capsule 100 mg PO BID 30 Days Qty: 60 1RF acetaminophen 500 mg Tablet 1,000 mg PO TID 14 Days Qty: 84 0RF Rx Instructions: Do not take more than 3000 mg Tylenol in a 24-hour period. oxycodone 5 mg Tablet 5 - 10 mg PO Q4H PRN PRN (Reason: Pain Score 4-10) 7 Days Qty: 42 0RF sennosides-docusate sodium [Stimulant Laxative Plus] 8.6-50 mg Tablet 2 tab PO BID 2 Days Qty: 8 0RF Rx Instructions: Take until first bowel movement, then as needed Xarelto 10 mg Tablet 10 mg PO DAILY@0600 Qty: 0 0RF Rx Instructions: Continue Xarelto 10 mg once daily for 2 weeks postoperatively for DVT prophylaxis. After 2 weeks then begin aspirin 81 mg twice daily for an additional 2 weeks Continued cholecalciferol (vitamin D3) 2,000 unit capsule 2,000 unit PO DAILY Prilosec OTC 20 mg tablet,delayed release (DR/EC) 20 mg PO DAILY PRN (Reason: Heartburn) (DME) FreeStyle Precision Esvin Strips Strip See Rx Instructions .ROUTE .MEDSUPPLY Qty: 100 6RF Rx Instructions: 3x/day estradiol [Estrace] 0.01 % (0.1 mg/gram) cream 1 appful vaginal MOWEFR (DME) Handicap Placard See Rx Instructions .ROUTE .MEDSUPPLY Qty: 1 0RF Rx Instructions: As directed, length of time 3 years nystatin-triamcinolone 100,000-0.1 unit/g-% cream 1 applic topical BID (DME) pen needle, diabetic [BD Ultra-Fine Short Pen Needle] 31 gauge x 5/16 needle See Rx Instructions .Route Qty: 300 3RF Rx Instructions: tid Humalog Mix 50-50 KwikPen 100 unit/mL (50-50) insulin pen 25 unit subcut TID Rx Instructions: before meals amlodipine 10 mg tablet 5 mg PO QHS Gemtesa 75 mg tablet 75 mg PO QDAY Adult 50 Plus Probiotic 4 billion cell capsule 4,000 mmu cells PO DAILY Rx Instructions: administer with a meal cyanocobalamin (vitamin B-12) 1,000 MCG capsule 2,000 mcg PO DAILY omega-3 fatty acids-fish oil 1 EACH capsule 1 ea PO DAILY d-mannose 500 mg Capsule 2,100 mg PO BID methenamine hippurate 1 gram Tablet 1 g PO BID 30 Days Qty: 60 0RF lisinopril 40 mg Tablet 40 mg PO DAILY Qty: 0 0RF calcium carbonate 600 mg calcium (1,500 mg) tablet 1,200 mg PO DAILY (DME) FreeStyle Shani 2 Sensor Kit See Rx Instructions .Route Qty: 1 0RF Rx Instructions: As directed folic acid 1 mg tablet 1 mg PO DAILY Qty: 90 2RF ferrous sulfate 325 mg (65 mg iron) tablet 325 mg PO DAILY Qty: 90 2RF Discontinued acetaminophen [Acetaminophen Extra Strength] 500 mg tablet 1,000 mg PO Q6H Referrals / Follow Up: Luther Torre MD [Primary Care Provider] - (recommend follow up with PCP once discharged from TCU for management of chronic anemia) Jc Bowden MD [Med Staff - Active Staff] - (Will require 1 month follow up with Dr. Bowden) Miya Oliveira PA [Med Staff - Adv Practice Prof] - 08/30/24 2:15 am Disposition Disposition (needs filled in before D/C Order can be placed): Custodial Facility
[2024-08-19] MEDS: Acetaminophen 500 MG Tablet 1000 MG PO (06:49)
[2024-08-19] MEDS: Rivaroxaban 10 MG Tablet PO (06:49)
[2024-08-19] MEDS: Insulin Lispro 100 UNIT/ML INSULN.PEN SC ×2 (06:51→11:54)
[2024-08-19 06:53] VITALS: O2SAT 94
[2024-08-19] MEDS: oxyCODONE 5 MG Tablet PO ×2 (06:57→11:11)
--- NOTE | 2024-08-19 06:58 | DS.PCM_ITS ---
Providers Date of Admission: 08/16/24 Date of Discharge: 08/19/24 Primary Care Physician: Dr. Luther Torre MD Consultations 08/16/24 14:20 Consult: Infectious Disease Routine Consulting Provider: Jc Bowden Reason for Consult: PKTY possible recommndations for extended post op antibiotics EMERGENT Consult: No Notified: Yes Date Notified: 08/16/24 Time Notified: 16:38 Method of Notification: Text 08/16/24 14:21 Consult: Hospitalist Routine Consulting Provider: Omi Valladares Reason for Consult: post op med management EMERGENT Consult: No Notified: Yes Date Notified: 08/16/24 Time Notified: 16:40 Method of Notification: Text Reason For Visit: ERAS, REVISION LEFT TOTAL KNEE, REMOVAL OF NON BIO Diagnosis Discharge Diagnosis (1) Status post revision of total replacement of left knee: Status: Acute Code(s): Z96.652 - Presence of left artificial knee joint Plan: 1. S/P revision left total knee arthroplasty entire femoral and tibial components with removal of antibiotic spacer POD #3 2. Continue Pain Medications: Tylenol and oxycodone. Patient has required some IV morphine and we discussed weaning off of the IV pain medications. Due to her anticoagulation and risk of bleeding we will avoid nonsteroidal anti- inflammatories. She will continue with the oxycodone every 4 hours as needed for pain in addition to the Tylenol. 3. DVT Prophylaxis: Patient is currently on Xarelto 10 mg once daily for 2 weeks postoperatively due to hormone therapy. After 2 weeks of Xarelto she will be switched over to aspirin 81 mg twice daily for an additional 2 weeks. She denies past history of DVT or pulmonary embolism. 4. PT/OT: Weightbearing as tolerated with walker. Per physical therapy patient struggled more today with regards to her left knee. She has a mod assist x 2 with limited mobility. They are recommending intermediate facility. Case management currently on board with possible discharge to transitional care unit. 5. Acute on chronic anemia, H & H: Labs today currently 8.5/27.3, asymptomatic. Vitals have been stable. She does have ongoing chronic anemia in which patient has been treated with ferrous sulfate and folic acid. Preoperatively her last hemoglobin was 10.5. Estimated blood loss with surgery was 100 mL. I did advise the patient postoperatively we will be having her follow-up with her primary care provider for continued management of her ongoing chronic anemia. She did voiced understanding. Discussed with case management scheduling follow- up upon discharge for continued management 6. Reactive leukocytosis: Trending down currently 12.1, Afebrile. Patient did receive Decadron intraoperatively. No clinical signs of infection. 7. Consultation infectious disease: Infectious disease has recommended oral doxycycline for 1 month postoperatively. Will require 1 month follow-up with infectious disease. Microbiology wound and tissue specimens were reviewed in chart and there is currently no growth or organisms seen today. I discussed with the patient potential side effects of doxycycline including sensitivity to the sunlight and increased risk of skin burn. Recommend patient take appropriate precautions. Also recommend patient to take probiotic while on the antibiotic. Patient voiced understanding agreement. 8. Prevena incisional wound VAC: Patient will continue with this wound VAC for 1 week postoperatively with removal date on August 24, 2024. There is minimal drainage primarily in tubing and little in canister. 9. Encouraged Incentive Spirometry 10. Patient is aware of postoperative constipation that can occur from 1-3 days postoperatively. Will continue with senna 2 tablets twice daily until first bowel movement. If patient does not have a bowel movement by day 3 would recommend adjustment by physician at the transitional care unit. 11. Continue postoperative medical treatment per medicine 12. Disposition: Case has been discussed with Dr. Oren Casillas. Patient does have approval for discharge to the transitional care unit at [facility] today. Her labs have been stable. She has been dealing with acute on chronic anemia. She will continue with her ferrous sulfate and folic acid. I did discuss with case management yesterday for patient to get scheduled appointment upon discharge from the transitional care unit with her primary care physician for continued management. She will also require 1 month follow-up with infectious disease Dr. Bowden. Patient will continue with the Tylenol and oxycodone for pain control. Due to hormone therapy she will continue with the Xarelto for 2 weeks postoperatively followed by an additional 2 weeks of aspirin 81 mg twice daily. Patient has scheduled follow-up with [facility] in 2 weeks. At that time we will plan for suture removal as long as incision is healing appropriately and x-rays of the knee. I would recommend the transitional care unit removing the Prevena incisional wound VAC on August 24, 2024. Upon discharge patient has been instructed to contact our office with any concerns or questions. I have reviewed the [place] Automated Rx Reporting System (OARRS) report for this patient for refill pattern and other prescriber involvement as part of the appropriate surveillance for the provision of acute and chronic controlled medications. The report was requested and reviewed on the date of this entry and was considered in the prescribing process. This dictation was created using voice recognition software. Phonetic and/or grammatical errors may exist. Medications at Discharge Home Medications cholecalciferol (vitamin D3) 50 mcg (2,000 unit) capsule 2,000 unit PO DAILY supplement 07/20/19 omeprazole magnesium 20 mg tablet,delayed release (Prilosec OTC) 20 mg PO DAILY PRN Heartburn 07/20/19 cyanocobalamin (vitamin B-12) 1,000 mcg capsule 2,000 mcg PO DAILY supplement 06/14/20 omega-3 fatty acids-fish oil 340 mg-1,000 mg capsule 1 ea PO DAILY SUPPLEMENT 08/30/20 blood sugar diagnostic (FreeStyle Precision Esvin Strips) #100 ea 07/16/21 d-mannose 500 mg capsule 2,100 mg PO BID SUPPLEMENT 03/29/22 estradiol 0.01% (0.1 mg/gram) vaginal cream (Estrace) 1 appful vaginal MOWEFR HORMONE 04/10/22 flash glucose sensor (FreeStyle Shani 2 Sensor kit) #1 ea 01/23/23 Handicap Placard #1 ea 12/24/23 insulin lispro protamine-lispro 100 unit/mL (50-50) subcutaneous pen (Humalog Mix 50-50 KwikPen) 25 unit subcut TID Diabetes 01/29/24 folic acid 1 mg tablet 1 mg PO DAILY supplement #90 tabs 02/11/24 ferrous sulfate 325 mg (65 mg iron) tablet 325 mg PO DAILY supplement #90 tabs 04/16/24 methenamine hippurate 1 gram tablet 1 g PO BID URINE PROTECTION 30 days #60 tabs 06/01/24 lisinopril 40 mg tablet 40 mg PO DAILY BP #0 tabs 06/09/24 amlodipine 10 mg tablet 5 mg PO QHS BP 07/21/24 lactobacillus combination no.9 4 billion cell capsule (Adult 50 Plus Probiotic) 4,000 mmu cells PO DAILY SUPPLEMENT 07/21/24 vibegron 75 mg tablet (Gemtesa) 75 mg PO QDAY OAB 07/21/24 BD Ultra-Fine Short Pen Needle 31 gauge x 5/16 (pen needle, diabetic) #300 ea 08/02/24 nystatin-triamcinolone 100,000 unit/g-0.1 % topical cream 1 applic topical BID SKIN 08/02/24 calcium carbonate 1,200 mg PO DAILY SUPPLEMENT 08/10/24 doxycycline monohydrate 100 mg capsule 100 mg PO BID 30 days #60 caps 08/17/24 acetaminophen 500 mg tablet 1,000 mg (2 x 500 mg) PO TID 14 days #84 tabs 08/19/24 oxycodone 5 mg tablet 5 - 10 mg (1 - 2 x 5 mg) PO Q4H PRN PRN Pain Score 4-10 7 days #42 tabs 08/19/24 rivaroxaban 10 mg tablet (Xarelto) 10 mg PO DAILY@0600 #0 tabs 08/19/24 sennosides 8.6 mg-docusate sodium 50 mg tablet (Stimulant Laxative Plus) 2 tab PO BID 2 days #8 tabs 08/19/24 Hospital Course Operations total knee replacement (Revision left total knee arthroplasty entire femoral and tibial component with removal of antibiotic spacer on August 16, 2024) Procedures Wound vac placement (Prevena incisional wound VAC was placed postoperatively and will remove on August 24, 2024) Summary of Care Provided Hospital Course: Patient is a 79-year-old female who initially had a left total knee arthroplasty on June 04, 2022. Patient has history of recurrent urinary tract infections. In 2023 patient had increased pain with the left knee in which aspiration was consistent with periprosthetic joint infection. Patient underwent removal left total knee arthroplasty with placement of antibiotic spacer on April 27, 2024. She was treated with 6 weeks IV antibiotics and followed by infectious disease. Patient then went through left knee revision entire femoral and tibial component with removal antibiotic spacer on August 16, 2024. Patient did receive perioperative antibiotics. Intraoperatively was uneventful. For details please see dictated operative note. The patient was placed in thigh-high teds, bilateral SCDs, remained stable in recovery. Prevena incisional wound VAC was placed on the left knee for 1 week postoperatively. Patient was admitted to the 3rd floor at [facility]. The patient's pain was managed with the use of IV and p.o. pain medications. Patient participated in physical therapy. Therapy was recommending intermediate facility upon discharge. Patient was excepted at the transitional care unit at [facility]. Patient was discharged on postoperative day # 3 to transitional care unit at [facility]. Patient was given medications stated below. Patient will continue with extra strength Tylenol and oxycodone for postoperative pain control. We are avoiding nonsteroidal anti-inflammatories as patient is currently on Xarelto and has increased risk of bleeding. Infectious disease was consulted and they are recommending 30-day postoperative oral doxycycline. Will also require 1 month follow-up with infectious disease for continued management. While in the hospital patient was continuing her ferrous sulfate and folic acid for her chronic anemia. Would recommend repeat labs in 2-3 days at the transitional care unit. Upon discharge patient will require follow-up with the primary care physician Dr. Torre for continued management. Due to patient currently on hormone therapy patient will use Xarelto 10 mg once daily for 2 weeks postoperatively. On August 30, 2024 will switch over to aspirin 81 mg twice daily for an additional 2 weeks for DVT prophylaxis. Plan will be to remove the Prevena incisional wound VAC on August 24, 2024 while at the transitional care unit. Patient will follow up with [facility] per postop instructions for suture removal if appropriate and repeat x-rays. Physical Exam Narrative Vital signs stable and afebrile. SCDs are in place bilaterally, PAKO hose on the right lower extremity Prevena incisional wound VAC in place with drainage in canister and tubing Patient is able to plantarflex and dorsiflex actively. Sensation is intact to light touch to saphenous, sural, superficial and deep peroneal, and tibial distribution. Negative Homans bilaterally, negative signs and symptoms of DVT. Const alert, oriented x3 and no apparent distress Weight / BMI Weight Weight: 89.176 kg Body Mass Index (BMI) 31.7 ABG / Lab / Microbiology Data 08/19/24 05:25 08/18/24 04:26 Laboratory: Laboratory Results - last 24 hr 08/18/24 06:50: POC Glucose 156 H 08/18/24 11:39: POC Glucose 190 H 08/18/24 16:08: POC Glucose 176 H 08/18/24 22:51: POC Glucose 167 H 08/19/24 05:25: WBC 12.1 H, RBC 3.09 L, Hgb 8.5 L, Hct 27.3 L, MCV 88.3, MCH 27.5, MCHC 31.1 L, RDW Std Deviation 47.5 H, RDW Coeff of Rainer 14.8 H, Plt Count 248, MPV 10.4 Microbiology: Microbiology 08/16/24 12:50 Tissue - Knee Gram Stain - Final 08/16/24 12:50 Tissue - Knee Wound Culture - Preliminary No growth-Final to follow 08/16/24 12:50 Tissue - Knee Anaerobic Culture - Preliminary No growth in 48 hours. 08/16/24 12:48 Tissue - Knee Gram Stain - Final 08/16/24 12:48 Tissue - Knee Wound Culture - Preliminary No growth-Final to follow 08/16/24 12:48 Tissue - Knee Anaerobic Culture - Preliminary No growth in 48 hours. 08/16/24 12:40 Tissue - Knee Gram Stain - Final 08/16/24 12:40 Tissue - Knee Wound Culture - Preliminary No growth-Final to follow 08/16/24 12:40 Tissue - Knee Anaerobic Culture - Preliminary No growth in 48 hours. 08/09/24 15:39 Nasal Secretion Nasal Screen MRSA/MSSA - Final D/C Instructions DC O2, CPAP, BIPAP Needs PSN CPAP & BiPAP: BiPAP & CPAP Settings per PSN Fraction of Inspired Oxygen ( 4 08/16/24 15:10 FIO2) Additional Home O2 Discharge instructions: No DC home with Oxygen: No Meaningful Use Info Meaningful Use Meaningful Use Diagnoses (Choose all that apply): None applicable Ischemic Stroke Statin Dosing Therapy Reference: STATIN DOSE THERAPY REFERENCE: * Patients > 75 years receive moderate or high dose statin therapy. * Patients 75 years or YOUNGER should receive HIGH intensity statin dose unless contraindicated. You will be required to document reason for non-treatment if statin daily dose does not meet guidelines. HIGH DOSE STATIN THERAPY DAILY Atorvastatin > than or = to 40 mg Rosuvastatin > than or = to 20 mg Amlodipine + Atorvastatin > than or = to 2.5/40 mg Ezetimibe + Simvastatin 10/80 mg Simvastatin 80mg Discharge Plan Admission Admit Date/Time: 08/16/24 14:20 Attending Provider: Oren Casillas Primary Care Provider: Luther Torre Consulting Providers: Dontrell Melendrez; Jc Bowden; Jopperi,Santiago Instructions Additional Instructions / Restrictions: 1. Pain regimen: Continue Exer strength Tylenol 500 mg 2 tablets 3 times daily. Will also use oxycodone 5 mg 1-2 tablets every 4 hours as needed for breakthrough pain. 2. DVT prophylaxis plan: Due to hormone therapy patient will use Xarelto 10 mg once daily for 2 weeks postoperatively. On August 30, 2024 patient should then transition to aspirin 81 mg twice daily for an additional 2 weeks. 3. Prevena incisional wound VAC: Remove incisional wound VAC on August 24, 2024. At that time okay to use ABD and Juan Luis wrap. Do not use any tape on knee. Once the incisional wound VAC has been removed it is okay for patient to get the left knee wet with shower as long as there are no wound complications or concerns. Do not submerge underwater for 6 weeks postoperatively. No use of any topical ointments over the incision for 6 weeks postoperatively. 4. PAKO hose: Continue PAKO hose for 2 weeks postoperatively. Okay to remove at nighttime. PAKO hose should be back on bilateral lower extremities during the day. 5. PT/OT: Weightbearing as tolerated with walker. Progress range of motion and strengthening exercises 6. Postoperative antibiotics: Per Dr. Bowden recommend 30 days of oral doxycycline and 1 month follow-up with infectious disease. Patient will continue the methenamine for UTI prophylaxis as long as she is able to tolerate this medication. 7. Acute on chronic anemia: Recommend follow-up lab work in 2-3 days with repeat CBC. Patient will require follow-up with primary care physician upon discharge for continued management and treatment. Discharge Orders/Prescriptions Prescriptions: New doxycycline monohydrate 100 mg Capsule 100 mg PO BID 30 Days Qty: 60 1RF acetaminophen 500 mg Tablet 1,000 mg PO TID 14 Days Qty: 84 0RF Rx Instructions: Do not take more than 3000 mg Tylenol in a 24-hour period. oxycodone 5 mg Tablet 5 - 10 mg PO Q4H PRN PRN (Reason: Pain Score 4-10) 7 Days Qty: 42 0RF sennosides-docusate sodium [Stimulant Laxative Plus] 8.6-50 mg Tablet 2 tab PO BID 2 Days Qty: 8 0RF Rx Instructions: Take until first bowel movement, then as needed Xarelto 10 mg Tablet 10 mg PO DAILY@0600 Qty: 0 0RF Rx Instructions: Continue Xarelto 10 mg once daily for 2 weeks postoperatively for DVT prophylaxis. After 2 weeks then begin aspirin 81 mg twice daily for an additional 2 weeks Continued cholecalciferol (vitamin D3) 2,000 unit capsule 2,000 unit PO DAILY Prilosec OTC 20 mg tablet,delayed release (DR/EC) 20 mg PO DAILY PRN (Reason: Heartburn) (DME) FreeStyle Precision Esvin Strips Strip See Rx Instructions .ROUTE .MEDSUPPLY Qty: 100 6RF Rx Instructions: 3x/day estradiol [Estrace] 0.01 % (0.1 mg/gram) cream 1 appful vaginal MOWEFR (DME) Handicap Placard See Rx Instructions .ROUTE .MEDSUPPLY Qty: 1 0RF Rx Instructions: As directed, length of time 3 years nystatin-triamcinolone 100,000-0.1 unit/g-% cream 1 applic topical BID (DME) pen needle, diabetic [BD Ultra-Fine Short Pen Needle] 31 gauge x 5/16 needle See Rx Instructions .Route Qty: 300 3RF Rx Instructions: tid Humalog Mix 50-50 KwikPen 100 unit/mL (50-50) insulin pen 25 unit subcut TID Rx Instructions: before meals amlodipine 10 mg tablet 5 mg PO QHS Gemtesa 75 mg tablet 75 mg PO QDAY Adult 50 Plus Probiotic 4 billion cell capsule 4,000 mmu cells PO DAILY Rx Instructions: administer with a meal cyanocobalamin (vitamin B-12) 1,000 MCG capsule 2,000 mcg PO DAILY omega-3 fatty acids-fish oil 1 EACH capsule 1 ea PO DAILY d-mannose 500 mg Capsule 2,100 mg PO BID methenamine hippurate 1 gram Tablet 1 g PO BID 30 Days Qty: 60 0RF lisinopril 40 mg Tablet 40 mg PO DAILY Qty: 0 0RF calcium carbonate 600 mg calcium (1,500 mg) tablet 1,200 mg PO DAILY (DME) FreeStyle Shani 2 Sensor Kit See Rx Instructions .Route Qty: 1 0RF Rx Instructions: As directed folic acid 1 mg tablet 1 mg PO DAILY Qty: 90 2RF ferrous sulfate 325 mg (65 mg iron) tablet 325 mg PO DAILY Qty: 90 2RF Discontinued acetaminophen [Acetaminophen Extra Strength] 500 mg tablet 1,000 mg PO Q6H Referrals / Follow Up: Luther Torre MD [Primary Care Provider] - (recommend follow up with PCP once discharged from TCU for management of chronic anemia) Jc Bowden MD [Med Staff - Active Staff] - (Will require 1 month follow up with Dr. Bowden) Miya Oliveira PA [Med Staff - Adv Practice Prof] - 08/30/24 2:15 am Disposition Disposition (needs filled in before D/C Order can be placed): [facility]irement Facility
[2024-08-19 06:59] VITALS: BP 152/60; PULSE 73; RESP 16; TEMP 36.6; O2SAT 93
[2024-08-19 07:18] LABS: Bedside Glucose 152 mg/dL (74-106)
[2024-08-19 08:47] VITALS: BP 135/55; PULSE 70; RESP 19; TEMP 36.6; O2SAT 95
[2024-08-19] MEDS: Doxycycline 100 MG CAPSULE PO (08:56)
[2024-08-19] MEDS: Calcium (Elemental) 500 MG Tablet 1000 MG PO (08:57)
[2024-08-19] MEDS: Ferrous Sulfate 325 MG Tablet PO (08:57)
[2024-08-19] MEDS: Famotidine 20 MG Tablet PO (08:57)
[2024-08-19] MEDS: Folic Acid 1 MG Tablet PO (08:57)
[2024-08-19] MEDS: Lisinopril 40 MG Tablet PO (08:58)
[2024-08-19] MEDS: Vibegron 75 MG TABLET PO (08:58)
[2024-08-19] MEDS: Lactobacillis Acidophilus 1 CAP PO (08:58)
[2024-08-19] MEDS: Cholecalciferol (VIT D3) 25 MCG TABLET (1,000 UNITS) 50 MCG PO (08:58)
[2024-08-19] MEDS: Senna/Docusate Sodium 1 Tablet 2 TABLET PO (08:59)
[2024-08-19] MEDS: Methenamine Hippurate 1 GM Tablet PO (08:59)
[2024-08-19] MEDS: Cyanocobalamin 500 MCG Tablet 2000 MCG PO (08:59)
[2024-08-19] MEDS: Nystatin/Triamcin Cream Tube 1 APPLIC TOPICAL (10:23)
--- NOTE | 2024-08-19 10:29 | CASEMGMT ---
Social Work- Physician feels that pt is ready for discharge today.? Bedside nurse and pt, as well as pt spouse notified of discharge. Disposition:TCU, skilled level of care under convalescent stay HEMANTH Souza
--- NOTE | 2024-08-19 12:04 | NURSING ---
Report given to Hedy COLE in TCU at this time. Pt did not have lunch yet, will have lunch and then send over, Hedy is aware of this.
[2024-08-19 12:13] LABS: Bedside Glucose 178 mg/dL (74-106)
== END 2024-08-19 13:25 | disposition skilled nursing facility (03) | DRG 467 ==
LOC: MS3 16:47
PROVIDERS: Anesthesiology; Physician Assistant Surgical; Admitting Provider Specialist; PCP Internal Medicine; Referring Provider Specialist; Visit Provider Specialist
PROC: 0SPD0JZ Removal of Synthetic Substitute from Left Knee Joint, Open Approach (ICD-10-PCS; principal; 2024-08-16 10:50)
DX: S82.022A Displaced longitudinal fracture of left patella, initial encounter for closed fracture (principal); T84.84XA Pain due to internal orthopedic prosthetic devices, implants and grafts, initial encounter; D50.9 Iron deficiency anemia, unspecified; E11.40 Type 2 diabetes mellitus with diabetic neuropathy, unspecified; E11.65 Type 2 diabetes mellitus with hyperglycemia; D72.828 Other elevated white blood cell count; I10 Essential (primary) hypertension; E66.811 Obesity, class 1; E78.00 Pure hypercholesterolemia, unspecified; K21.9 Gastro-esophageal reflux disease without esophagitis; Z79.4 Long term (current) use of insulin; M19.90 Unspecified osteoarthritis, unspecified site; M25.562 Pain in left knee; Z68.31 Body mass index [BMI] 31.0-31.9, adult; H91.90 Unspecified hearing loss, unspecified ear; H40.9 Unspecified glaucoma; Z90.710 Acquired absence of both cervix and uterus; Z79.890 Hormone replacement therapy; Z79.85 Long-term (current) use of injectable non-insulin antidiabetic drugs; N32.81 Overactive bladder; Z79.84 Long term (current) use of oral hypoglycemic drugs; Z96.652 Presence of left artificial knee joint; X58.XXXA Exposure to other specified factors, initial encounter; Z88.1 Allergy status to other antibiotic agents; Z88.2 Allergy status to sulfonamides; Z88.8 Allergy status to other drugs, medicaments and biological substances; Z96.642 Presence of left artificial hip joint; Z90.49 Acquired absence of other specified parts of digestive tract; Y79.2 Prosthetic and other implants, materials and accessory orthopedic devices associated with adverse incidents
CPT/HCPCS: 36415; 73560; 80048; 81002; 82040; 82962; 83735; 85025; 85027; 87015; 87070; 87075; 87081; 87102; 87116; 87176; 87205; 87206; 94668; 97116; 97162; 97166; 97530; 97535; 99252; C1776; G0463; J3475

== ENCOUNTER 2024-08-19 13:50 | Inpatient (IN) | payer MEDICARE, OTHER, SELFPAY ==
[2024-08-19 14:07] VITALS: BP 141/59; PULSE 73; RESP 16; TEMP 37.1; O2SAT 95; BMI 31.5
[2024-08-19 15:10] VITALS: O2SAT 95
[2024-08-19] MEDS: oxyCODONE 5 MG Tablet PO ×2 (16:37→20:46)
[2024-08-19 17:31] LABS: Bedside Glucose 165 mg/dL (74-106)
[2024-08-19] MEDS: Insulin Lispro 100 UNIT/ML INSULN.PEN 25 UNIT SC (17:44)
--- NOTE | 2024-08-19 20:03 | HP.PCM_ITS ---
HPI - General General Date of Admission: 08/19/24 Date of Service: 08/19/24 Chief Complaint: Here for rehabilitation. HPI Narrative ARSALAN SPENCE, is a 79 Female who presents with followin08/16/2024 Dr. Casillas performed revision left total knee replacement entire femoral tibial components, remove drug delivery device left knee. 08/16/2024 Doxycycline po, consult ID. Tylenol, Oxycodone, Morphine IV for pain. Xarelto 10mg daily DVT prophylaxis. Monitor anemia with serial cbcd. Dr. Harrison recommends tight control of Diabetes Mellitus 2/2 prosthetic knee infection. 08/17/2024 Xarelto 10mg daily x 2 weeks, then Aspirin 81mg twice daily x 2 weeks for DVT prophylaxis. PT/OT for debility. Prevena wound VAC left knee. 08/17/2024 ID recommends PO Doxycycline x 20 days, then Methenamine for prevention of UTI. 08/18/2024 Moderate assist x 2 with therapy, SNF recommended. Hemoglobin 8.8. Prevena wound VAC x 1 week. 08/19/2024 Admit to TCU with debility, here for rehabilitation, strengthening, prior to discharge home with . [facility] Medical History (Updated 08/19/24 @ 20:[address] Ra Mccracken MD) History of revision of total replacement of left knee joint Wears hearing aid Wears glasses Walker as ambulation aid Low iron High cholesterol Dietary restriction Gastric reflux History of echocardiogram History of stress test Cardiology follow-up encounter History of ESBL E. coli infection Irregular heart beat History of TIA (transient ischemic attack) and stroke Constipation Vaginal irritation Furunculosis Renal stone Insulin dependent diabetes mellitus Bladder disease Back pain Difficulty swallowing History of diverticulitis History of pain when walking History of edema History of irregular heartbeat DDD (degenerative disc disease), lumbar Osteoarthritis Chronic back pain Balance disorder Lumbar radiculopathy Neuropathy Obesity GERD (gastroesophageal reflux disease) Osteoporosis Hearing loss Chronic UTI (urinary tract infection) Glaucoma Essential (primary) hypertension Home Medications ?Medication ?Instructions ?Recorded ?Last Taken ?Type cholecalciferol (vitamin D3) 50 2,000 unit PO DAILY supplement 07/20/19 08/18/24 10:10 History mcg (2,000 unit) capsule omeprazole magnesium 20 mg 20 mg PO DAILY PRN Heartburn 07/20/19 08/17/24 History tablet,delayed release (Prilosec OTC) cyanocobalamin (vitamin B-12) 2,000 mcg PO DAILY supplement 06/14/20 08/18/24 10:10 History 1,000 mcg capsule omega-3 fatty acids-fish oil 340 1 ea PO DAILY SUPPLEMENT 08/30/20 08/12/24 History mg-1,000 mg capsule blood sugar diagnostic (FreeStyle #100 ea 07/16/21 Unknown Rx Precision Esvin Strips) d-mannose 500 mg capsule 2,100 mg PO BID SUPPLEMENT 03/29/22 08/12/24 History estradiol 0.01% (0.1 mg/gram) 1 appful vaginal MOWEFR HORMONE 04/10/22 08/13/24 History vaginal cream (Estrace) flash glucose sensor (FreeStyle #1 ea 01/23/23 Unknown Rx Shani 2 Sensor kit) Handicap Placard #1 ea 12/24/23 Unknown Rx insulin lispro protamine-lispro 25 unit subcut TID Diabetes 01/29/24 08/15/24 History 100 unit/mL (50-50) subcutaneous pen (Humalog Mix 50-50 KwikPen) folic acid 1 mg tablet 1 mg PO DAILY supplement #90 tabs 02/11/24 08/18/24 10:05 Rx ferrous sulfate 325 mg (65 mg 325 mg PO DAILY supplement #90 tabs 04/16/24 08/18/24 10:05 Rx iron) tablet methenamine hippurate 1 gram tablet 1 g PO BID URINE PROTECTION 30 06/01/24 08/18/24 22:55 Rx days #60 tabs lisinopril 40 mg tablet 40 mg PO DAILY BP #0 tabs 06/09/24 08/18/24 05:45 Rx amlodipine 10 mg tablet 5 mg PO QHS BP 07/21/24 08/18/24 22:50 History lactobacillus combination no.9 4 4,000 mmu cells PO DAILY SUPPLEMENT 07/21/24 08/18/24 10:10 History billion cell capsule (Adult 50 Plus Probiotic) vibegron 75 mg tablet (Gemtesa) 75 mg PO QDAY OAB 07/21/24 08/18/24 10:05 History BD Ultra-Fine Short Pen Needle 31 #300 ea 08/02/24 Unknown Rx gauge x 5/16 (pen needle, diabetic) nystatin-triamcinolone 100,000 1 applic topical BID SKIN 08/02/24 08/18/24 22:50 History unit/g-0.1 % topical cream calcium carbonate 1,200 mg PO DAILY SUPPLEMENT 08/10/24 08/18/24 10:04 History doxycycline monohydrate 100 mg 100 mg PO BID Infection 30 days 08/17/24 Unknown Rx capsule #60 caps acetaminophen 500 mg tablet 1,000 mg (2 x 500 mg) PO TID Pain 08/19/24 08/19/24 06:50 Rx 14 days #84 tabs oxycodone 5 mg tablet 5 - 10 mg (1 - 2 x 5 mg) PO Q4H 08/19/24 08/19/24 06:55 Rx PRN PRN Pain Score 4-10 7 days #42 tabs rivaroxaban 10 mg tablet (Xarelto) 10 mg PO DAILY@0600 blood thinner 08/19/24 08/19/24 06:50 Rx #0 tabs sennosides 8.6 mg-docusate sodium 2 tab PO BID constipation 2 days 08/19/24 08/18/24 22:50 Rx 50 mg tablet (Stimulant Laxative #8 tabs Plus) Allergy/AdvReac Type Severity Reaction Status Date / Time ciprofloxacin Allergy Severe impairment Verified 08/16/24 09:25 of motor skills hydrochlorothiazide Allergy Mild other Verified 08/16/24 09:25 gatifloxacin (From Tequin) Allergy Unknown Other Verified 08/16/24 09:25 lidocaine (From Xylocaine) Allergy Unknown Other Verified 08/16/24 09:25 Sulfa (Sulfonamide Allergy Unknown unknown Verified 08/16/24 09:25 Antibiotics) metformin AdvReac Intermediate loose Verified 08/16/24 09:25 stool, bladder infections sitagliptin (From Janumet) AdvReac Intermediate loose stool Verified 08/16/24 09:25 batroxobin AdvReac Unknown unknown Verified 08/16/24 09:25 exenatide (From Byetta) AdvReac Unknown unknown Verified 08/16/24 09:25 nizatidine (From Axid) AdvReac Unknown unknown Verified 08/16/24 09:25 sertraline (From Zoloft) AdvReac Unknown unknown Verified 08/16/24 09:25 simvastatin (From Zocor) AdvReac Unknown unknown Verified 08/16/24 09:25 trandolapril (From Mavik) AdvReac Unknown unknown Verified 08/16/24 09:25 betaxolol AdvReac Other Verified 08/16/24 09:25 doxazosin AdvReac Other Verified 08/16/24 09:25 olmesartan (From Benicar) AdvReac Diarrhea Verified 08/16/24 09:25 Family History Mother CVA (cerebral vascular accident) Aunt Breast cancer Surgical History Hx of total knee arthroplasty Hx of total knee arthroplasty S/P total hip arthroplasty S/P hip hemiarthroplasty History of total left hip replacement Hx of arthroscopic knee surgery Hx of eye surgery Hx of bilateral cataract extraction Hx of total knee arthroplasty Hx of knee surgery Hx of total knee arthroplasty H/O foot surgery H/O: hysterectomy History of cataract surgery H/O tubal ligation History of cholecystectomy History of tonsillectomy Social History household members: spouse Smoking Status: Never smoker alcohol intake: current alcohol intake frequency: a few times a week substance use type: does not use diet: diabetic well-balanced diet: daily or most days what type of physical activity do you participate in: walking frequency: 1-2 times per week ROS Constitutional Constitutional: Reports weakness; Denies chills, fever(s) or weight gain ENT HEENT: Denies headache(s), nasal congestion or nasal discharge Cardiovascular Cardiovascular: Denies chest pain or palpitations Respiratory/Chest Respiratory/Chest: Denies cough, excessive phlegm production or shortness of breath with exertion Gastrointestinal Gastrointestinal: Denies abdominal pain, nausea or vomiting Genitourinary Genitourinary: Denies dysuria Musculoskeletal Musculoskeletal: Denies joint pain or joint swelling Integumentary Integumentary: Denies rash or wounds Neurologic Neurologic: Denies focal weakness, numbness or tingling Psychiatric Psychiatric: Denies anxiety, auditory hallucinations, depression, homicidal ideation or suicidal ideation Vital Signs Vital Signs Vital Signs: 08/19/24 14:07 08/19/24 15:10 Temperature 98.8 F Temperature Source Temporal Pulse Rate 73 Pulse Rhythm Irregular Pulse Strength Normal (2+) Respiratory Rate 16 Respiratory Effort Normal Respiratory Depth Normal Respiratory Pattern Normal Blood Pressure 141/59 H Blood Pressure Mean 86 Blood Pressure Source Monitor Blood Pressure Position Semi-Fowlers Blood Pressure Location Right Arm Pulse Ox 95 95 Oxygen Delivery Method Room Air Room Air Weight Weight: 88.541 kg Body Mass Index (BMI) 31.5 Physical Exam Const alert General Appearance: cooperative HEENT normocephalic Eyes PERRL and EOMs intact bilaterally Neck supple, no JVD and no carotid bruits Resp normal respiratory effort, normal air movement and clear to auscultation bilaterally Cardio regular rate and regular rhythm GI normal to inspection, nondistended, normoactive bowel sounds, non-tender and non-distended Extremity normal capillary refill Extremity Narrative: Left knee wound VAC intact. General Extremity: Negative for edema Skin no rashes or lesions noted General Skin Exam: no breakdown Psych affect normal Appearance: appropriate Results Lab / Micro Data Labs: Laboratory Results - last 24 hr 08/19/24 16:11: POC Glucose 165 H Assessment & Plan Assessment/Plan (1) Debility: (2) Infection of prosthetic left knee joint: QUALIFIERS: Encounter type: initial encounter Qualified Code(s): T84.54XA - Infection and inflammatory reaction due to internal left knee prosthesis, initial encounter (3) Status post revision of total replacement of left knee: (4) Vitamin D deficiency: (5) Vitamin B12 deficiency: (6) Iron deficiency anemia: (7) Diabetes: QUALIFIERS: Diabetes mellitus complication detail: with polyneuropathy Diabetes mellitus complication status: with neurologic complications Diabetes mellitus usp insulin use: with usp use Diabetes mellitus type: type 2 Qualified Code(s): E11.42 - Type 2 diabetes mellitus with diabetic polyneuropathy; Z79.4 - assisted (current) use of insulin (8) Glaucoma: (9) Hyperlipidemia: (10) GERD (gastroesophageal reflux disease): PLAN: Plan 79 year old female with below past medical history underwent revision left total knee replacement, removal antibiotic spacer 08/16/[address] Casillas, admitted to TCU with debility, here for rehabilitation, strengthening, prior to discharge home with . * Debility - PT/OT. * Pain - Tylenol 1000mg tid, Tramadol 50mg q6 prn pain (1-5), Oxycodone 5mg q4 prn pain (6-10). * Bowel - senna/colace 2 tablets bid. * Adult immunization - Administer pneumonia vaccine, covid vaccine, flu vaccine as appropriate. * DVT prophylaxis - Xarelto 10mg daily thru 08/30/2024, then Aspirin 81mg po bid thru 09/14/2023. * Hypertension - Lisinopril 40mg daily, amlodipine 5mg qhs. * Calcium deficiency - TUMS 1000mg daily. * Vitamin D deficiency - D3 50mcg daily. * Vitamin B12 deficiency - Vitamin B12 2000mcg daily. * Left prosthetic knee infection s/p revision - Doxycycline 100mg bid thru 09/18/2024. * Iron deficiency anemia - Ferrous sulfate 325mg daily. * Folate deficiency - Folic acid 1mg daily. * Diabetes Mellitus II - Humalog 25 units tidcm. * GI prophylaxis - Lactobacillus 1 capsule daily. * Recurrent UTI - Methenamine 1gm bid. * Tinea Corporis - Mycolog topical bid. * Hyperlipidemia - Mckittrick 3 1 gm daily. * GERD - Pantoprazole 20mg daily. * Overactive bladder - Gemtesa 75mg daily.
[2024-08-19 21:30] LABS: Bedside Glucose 87 mg/dL (74-106)
[2024-08-19] MEDS: Doxycycline 100 MG CAPSULE PO (22:26)
[2024-08-19] MEDS: Methenamine Hippurate 1 GM Tablet PO (22:27)
[2024-08-19] MEDS: Senna/Docusate Sodium 1 Tablet 2 TABLET PO (22:28)
[2024-08-19] MEDS: amLODIPine 5 MG Tablet PO (22:28)
[2024-08-19] MEDS: Acetaminophen 500 MG Tablet 1000 MG PO (22:29)
[2024-08-19] MEDS: Nystatin/Triamcin Cream Tube 1 APPLIC TOPICAL (22:31)
[2024-08-20 04:43] LABS: Bedside Glucose 172 mg/dL (74-106)
[2024-08-20] MEDS: Rivaroxaban 10 MG Tablet PO (05:05)
[2024-08-20] MEDS: Acetaminophen 500 MG Tablet 1000 MG PO ×3 (05:05→22:19)
[2024-08-20 06:14] LABS: Absolute Lymphocyte Count 2.99 X10^3/uL (0.83-4.51); Absolute Neutrophil Count 7.2 X10^3/uL (2.0-7.7); Basophil# 0.03 X10^3/uL; Basophil% 0.3 % (0-1); Eosinophil# 0.16 X10^3/uL; Eosinophils% 1.4 % (0-5); Hematocrit 26.1 % (37-47); Hemoglobin 8.1 g/dL (12.0-15.0); Lymphocyte # 2.99 X10^3/ul (0.83-4.51); Lymphocyte % 26.4 % (19-41); Mean Corpuscular Hgb 27.6 pg (27.0-32.0); Mean Corpuscular Volume 89.1 fL (81-99); Monocyte# 0.89 X10^3/uL; Monocyte% 7.9 % (0-10); NRBC Flagged by Analyzer 0.2 % (0-5); Neutrophil # 7.17 X10^3/uL (2.7-7.7); Neutrophil % 63.3 % (47-70); Platelet Count 244 K/mm3 (150-450); RBC Distribution Width CV 14.9 % (11.6-14.6); RBC Distribution Width SD 48.2 fl (35.1-43.9); Red Blood Count 2.93 M/mm3 (4.2-5.4); White Blood Count 11.3 K/mm3 (4.4-11.0)
[2024-08-20 06:28] LABS: Bedside Glucose 150 mg/dL (74-106)
[2024-08-20 06:41] LABS: Anion Gap 8 (5-15); BUN 27 mg/dL (7-18); BUN/Creat Ratio 28.8 RATIO (10-20); Calcium,Total 8.7 mg/dL (8.5-10.1); Chloride 106 mmol/L (98-107); Creatinine, Serum 0.94 mg/dL (0.55-1.02); EST Glomerular Filtration Rate 61 mL/min (>60); Est Glom Filt Rate - Afr Amer 74 mL/min (>60); Estimated Creatinine Clearance 54.39 ml/min; Glucose 182 mg/dL (74-106); Potassium 3.6 mmol/L (3.5-5.1); Sodium Level 138 mmol/L (136-145)
[2024-08-20] MEDS: Insulin Lispro 100 UNIT/ML INSULN.PEN 25 UNIT SC ×3 (08:21→17:49)
[2024-08-20] MEDS: Ferrous Sulfate 325 MG Tablet PO (08:24)
[2024-08-20] MEDS: Lactobacillis Acidophilus 1 CAP PO (08:24)
[2024-08-20] MEDS: Omega-3 Acid Ethyl Esters 1 GM Capsule PO (08:24)
[2024-08-20] MEDS: Folic Acid 1 MG Tablet PO (08:24)
[2024-08-20] MEDS: Cyanocobalamin 500 MCG Tablet 2000 MCG PO (08:25)
[2024-08-20] MEDS: Doxycycline 100 MG CAPSULE PO ×2 (08:26→22:20)
[2024-08-20] MEDS: Vibegron 75 MG TABLET PO (08:27)
[2024-08-20] MEDS: Nystatin/Triamcin Cream Tube 1 APPLIC TOPICAL ×2 (08:28→22:20)
[2024-08-20] MEDS: Methenamine Hippurate 1 GM Tablet PO ×2 (08:28→22:20)
[2024-08-20] MEDS: Senna/Docusate Sodium 1 Tablet 2 TABLET PO (08:29)
[2024-08-20] MEDS: Cholecalciferol (VIT D3) 25 MCG TABLET (1,000 UNITS) 50 MCG PO (08:29)
[2024-08-20] MEDS: Lisinopril 40 MG Tablet PO (08:30)
[2024-08-20] MEDS: Calcium Carbonate 500 MG Tablet 1000 MG PO (08:37)
[2024-08-20 08:39] VITALS: BP 149/54; PULSE 65; O2SAT 94
--- NOTE | 2024-08-20 11:23 | NURSING ---
NOTIFIED BY LOUISE THAT PT WAS POSITIVE FOR BLOOD IN STOOL. PER CONSULT DR. TRINH. PT ALSO UPDATED.
[2024-08-20] MEDS: oxyCODONE 5 MG Tablet PO ×2 (11:31→22:25)
--- NOTE | 2024-08-20 11:33 | PHA.CONS_ITS ---
Documented by User: Jory Kelley 08/20/24 11:51 TCU RX Drug Regimen Review Subjective/Objective Subjective/Objective Subjective: TCU Admission. 79 YOF underwent revision left total knee replacement, removal antibiotic spacer 08/16/[address] Casillas. Admitted to TCU with debility for strengthening and rehabilitation. Objective: Allergies ciprofloxacin Allergy (Severe, Verified 08/16/24 09:25) impairment of motor skills hydrochlorothiazide Allergy (Mild, Verified 08/16/24 09:25) other bloating gatifloxacin (From Tequin) Allergy (Unknown, Verified 08/16/24 09:25) Other lidocaine (From Xylocaine) Allergy (Unknown, Verified 08/16/24 09:25) Other Sulfa (Sulfonamide Antibiotics) Allergy (Unknown, Verified 08/16/24 09:25) unknown burning metformin Adverse Reaction (Intermediate, Verified 08/16/24 09:25) loose stool, bladder infections sitagliptin (From Janumet) Adverse Reaction (Intermediate, Verified 08/16/24 09:25) loose stool batroxobin Adverse Reaction (Unknown, Verified 08/16/24 09:25) unknown exenatide (From Byetta) Adverse Reaction (Unknown, Verified 08/16/24 09:25) unknown nizatidine (From Axid) Adverse Reaction (Unknown, Verified 08/16/24 09:25) unknown sertraline (From Zoloft) Adverse Reaction (Unknown, Verified 08/16/24 09:25) unknown simvastatin (From Zocor) Adverse Reaction (Unknown, Verified 08/16/24 09:25) unknown trandolapril (From Mavik) Adverse Reaction (Unknown, Verified 08/16/24 09:25) unknown betaxolol Adverse Reaction (Verified 08/16/24 09:25) Other doxazosin Adverse Reaction (Verified 08/16/24 09:25) Other olmesartan (From Benicar) Adverse Reaction (Verified 08/16/24 09:25) Diarrhea Current Medications Generic Name Dose Route Start Last Admin Trade Name Freq PRN Reason Stop Dose Admin Acetaminophen 1,000 mg 08/19/24 22:00 08/20/24 05:05 Acetaminophen 500 Mg Tablet PO 1,000 mg TID RAEANN Administration Amlodipine Besylate 5 mg 08/19/24 22:00 08/19/24 22:28 Amlodipine 5 Mg Tablet PO 5 mg QHS COUNTS INCLUDE 234 BEDS AT THE [facility] Administration Protocol Aspirin 81 mg 08/31/24 10:00 Aspirin E.C. 81 Mg Tablet PO 09/14/24 10:01 BID COUNTS INCLUDE 234 BEDS AT THE [facility] Calcium Carbonate 1,000 mg 08/20/24 10:00 08/20/24 08:37 Calcium Carbonate 500 Mg Tablet PO 1,000 mg DAILY COUNTS INCLUDE 234 BEDS AT THE [facility] Administration Cholecalciferol 50 mcg 08/20/24 10:00 08/20/24 08:29 Cholecalciferol (Vit D3) 25 Mcg Tablet (1,000 Units) PO 50 mcg DAILY COUNTS INCLUDE 234 BEDS AT THE [facility] Administration Cyanocobalamin 2,000 mcg 08/20/24 10:00 08/20/24 08:25 Cyanocobalamin 500 Mcg Tablet PO 2,000 mcg DAILY COUNTS INCLUDE 234 BEDS AT THE [facility] Administration Doxycycline Monohydrate 100 mg 08/19/24 22:00 08/20/24 08:26 Doxycycline 100 Mg Capsule PO 09/18/24 10:01 100 mg BID COUNTS INCLUDE 234 BEDS AT THE [facility] Administration Ferrous Sulfate 325 mg 08/20/24 10:00 08/20/24 08:24 Ferrous Sulfate 325 Mg Tablet PO 325 mg DAILY COUNTS INCLUDE 234 BEDS AT THE [facility] Administration Folic Acid 1 mg 08/20/24 10:00 08/20/24 08:24 Folic Acid 1 Mg Tablet PO 1 mg DAILY COUNTS INCLUDE 234 BEDS AT THE [facility] Administration Insulin Human Lispro 25 unit 08/19/24 17:45 08/20/24 08:21 Insulin Lispro 100 Unit/Ml Insuln.Pen SC 25 u TIDCM COUNTS INCLUDE 234 BEDS AT THE [facility] Administration Lisinopril 40 mg 08/20/24 10:00 08/20/24 08:30 Lisinopril 40 Mg Tablet PO 40 mg DAILY COUNTS INCLUDE 234 BEDS AT THE [facility] Administration Protocol Methenamine Hippurate 1 gm 08/19/24 22:00 08/20/24 08:28 Methenamine Hippurate 1 Gm Tablet PO 1 gm BID COUNTS INCLUDE 234 BEDS AT THE [facility] Administration Nystatin/Triamcinolone Acetonide 1 applic 08/19/24 22:00 08/20/24 08:28 Nystatin/Triamcin Cream Tube TOPICAL 1 applic BID COUNTS INCLUDE 234 BEDS AT THE [facility] Administration Protocol Ngkkc-0-Oers Ethyl Esters 1 gm 08/20/24 10:00 08/20/24 08:24 Hooper-3 Acid Ethyl Esters 1 Gm Capsule PO 1 gm DAILY COUNTS INCLUDE 234 BEDS AT THE [facility] Administration Oxycodone HCl 5 mg 08/19/24 17:17 08/20/24 11:31 Oxycodone 5 Mg Tablet PO 5 mg Q4H PRN PRN Administration Pain Score 6-10 or Pre PT/OT Pantoprazole Sodium 20 mg 08/19/24 14:18 Pantoprazole Sodium 20 Mg Tablet PO DAILY PRN Heartburn Rivaroxaban 10 mg 08/20/24 06:00 08/20/24 05:05 Rivaroxaban 10 Mg Tablet PO 08/30/24 06:01 10 mg DAILY@0600 RAEANN Administration Senna/Docusate Sodium 2 tablet 08/19/24 22:00 08/20/24 08:29 Senna/Docusate Sodium 1 Tablet PO 2 tablet BID RAEANN Administration Sodium Chloride 10 - 40 ml 08/19/24 14:52 0.9% Saline Lock 10 Ml Syringe IV UD PRN SALINE FLUSH Tramadol HCl 50 mg 08/19/24 17:17 Tramadol 50 Mg Tablet PO Q6H PRN PRN Pain Score 1-5 or Pre PT/OT Tuberculin PPD 0.1 ml 08/27/24 10:00 Tuberculin,Purif.Prot.Deriv. 50 Tu/Ml Vial ID 08/27/24 10:01 X1 ONE Problem List Hyperlipidemia (Acute) Iron deficiency anemia (Acute) Vitamin B12 deficiency (Acute) Vitamin D deficiency (Acute) Status post revision of total replacement of left knee (Acute) Glaucoma (Chronic) Debility (Acute) Diabetes (Chronic) GERD (gastroesophageal reflux disease) (Chronic) Vital Signs Temp Pulse Resp BP Pulse Ox O2 Del Method 98.8 F 65 16 149/54 H 94 Room Air 08/19/24 14:07 08/20/24 08:39 08/19/24 14:07 08/20/24 08:39 08/20/24 08:39 08/20/24 08:39 Oxygen Delivery Method Room Air Weight: 88.541 kg Body Mass Index (BMI) 31.5 Sodium 138 mmol/L (136-145) 08/20/24 05:20 Potassium 3.6 mmol/L (3.5-5.1) 08/20/24 05:20 Chloride 106 mmol/L (98-107) 08/20/24 05:20 Carbon Dioxide 25.0 mmol/L (21.0-32.0) 08/20/24 05:20 Anion Gap 8 (5-15) 08/20/24 05:20 BUN 27 mg/dL (7-18) H 08/20/24 05:20 Creatinine 0.94 mg/dL (0.55-1.02) 08/20/24 05:20 Est GFR (MDRD) Af Amer 74 mL/min (>60) 08/20/24 05:20 Est GFR (MDRD) Non-Af 61 mL/min (>60) 08/20/24 05:20 BUN/Creatinine Ratio 28.8 RATIO (10-20) H 08/20/24 05:20 Glucose 182 mg/dL (74-106) H 08/20/24 05:20 Assessment/Plan: 1. Pain: acetaminophen 1000mg PO TID, tramadol 50mg PO Q6H PRN pain 1-5 and oxycodone 5mg PO Q4H PRN pain 6-10. Resident had 1 dose of oxycodone (pain of 7 in the knee) and no doses of tramadol. Please continue to monitor for increased pain, PRN usage, respiratory depression, renal function, falls/fractures (BEERs) and constipation. 2. Bowel: senna/docusate 2T PO BID. Please continue to monitor for constipation and diarrhea. Last documented bowel movement was 08/20. 3. DVT prophylaxis: rivaroxaban 10mg PO daily thru 08/20/24, then aspirin 81mg PO BID thru 09/14/23. Please continue to monitor for S/S of bleeding/DVT and hemoglobin (last 8.1g/dL). 4. Left prosthetic knee infection: doxycycline 100mg PO BID thru 09/18/23. Please continue to monitor for S/S of infection, upset stomach and diarrhea. 5. Hypertension: lisinopril 40mg PO daily and amlodipine 5mg PO QHS. Please continue to monitor BP (last 149/54), swelling, potassium (last 3.6mmol/L), cough and renal function. 6. Iron deficiency anemia: ferrous sulfate 325mg PO daily. Please continue to monitor hemoglobin, dark stools, constipation and iron studies (last 05/03/24). 7. Diabetes mellitus II: insulin lispro 25units TIDCM. Please continue to monitor for S/S of hypoglycemia, glucose (last 150mg/dL) and hemoglobin A1c (last 6.3% 08/02/24). 8. Hyperlipidemia: omega 3 1gm PO daily. Please continue to monitor lipid panel (last 07/20/24). 9. GERD: pantoprazole 20mg PO daily. Please continue to monitor for S/S of GERD and diarrhea (BEERs). 10. Overactive bladder: vibegron 75mg PO daily. Please continue to monitor for GI side effects and S/S of overactive bladder. 11. Recurrent UTI: methenamine 1gm PO BID. Please continue to monitor for S/S of UTI. 12. GI prophylaxis: lactobacillus 1C PO daily. Please continue to monitor for diarrhea. 13. Calcium and folic acid deficiencies: calcium carbonate 1000mg PO daily and folic acid 1mg PO daily. Please continue to monitor calcium (last 8.7mg/dL). 13. Vitamin D and B12 deficiencies: cyanocobalamin 2000mcg PO daily and cholecalciferol 50mcg PO daily. Please consider ordering vitamin B12 and D levels as the last were from 12/2021 and 03/2023 respectively. Thanks. 14. Tinea Corporis: Mycolog topical bid. Please continue to monitor. Assessment/Plan for indications treated with psychotropic medications: None Medical chart and medication regimen reviewed. The following medication irregularities or issues were identified: 1. Cyanocobalamin 2000mcg PO daily and cholecalciferol 50mcg PO daily. Please consider ordering vitamin B12 and D levels as the last were from 12/2021 and 03/2023 respectively. Thanks. Date Date of Note: 08/20/24 Documented by User: Dr. Ra Mccracken MD 08/20/24 13:55 TCU RX Drug Regimen Review Provider Comments Provider responsibility Provider Comments to Recommendations by Pharmacy Agree
[2024-08-20 11:43] LABS: Bedside Glucose 126 mg/dL (74-106)
--- NOTE | 2024-08-20 12:52 | NURSING ---
Feed Grinder Note; Activity Asset: Azalea Ardon is independent in her choice of daily activities. She continues to read, watch tv, visit with family and has her smartphone. Reva welcomes visits from the geriatric psychiatrist and therapy dog; she enjoyed their visits the last time she was here. Staff will encourage social activities, remind her of group and respect her right to say no.
[2024-08-20] MEDS: Tuberculin,Purif.prot.deriv. 50 TU/ML Vial 0.1 ML ID (15:00)
[2024-08-20 15:30] VITALS: RESP 16; TEMP 36.8
[2024-08-20 16:44] LABS: Bedside Glucose 80 mg/dL (74-106)
--- NOTE | 2024-08-20 17:00 | CASEMGMT ---
Social Work SW met with patient to complete initial assessment. Pt known to this worker from previous stay. Pt confirmed code status as full code. Educated to Medicare benefit and copay coverage. Pt's goal is to return home with , preferably by 08/27 for family Pooja. SW explained pt and will determine readiness and this worker to assist with any DC needs. Will continue to follow. ADRIANA StevensW
[2024-08-20 17:14] LABS: Bedside Glucose 150 mg/dL (74-106)
--- NOTE | 2024-08-20 17:52 | NURSING ---
PT BLOOD SUGAR WAS 80 AT AROUND 1600, PT DECLINED ANY THING TO DRINK OR EAT AT THAT TIME. PT THEN CALLED OUT 1/2 HOUR LATER AND STATED SHE WAS SWEATING AND B.S WAS 67,PT STATED SHE ATE A SMALL CANDY BAR AND REQUESTING OJ. OJ GIVEN AND RECHECKED B.S IN 20 MINS. BLOOD SUGAR CAME UP TO 150 AND PT STATED SHE FELT BETTER. PT THEN GOT HER 25 UNITS OF HUMALOG AT SUPPER.
[2024-08-20 20:00] VITALS: PULSE 74; RESP 18; O2SAT 97
[2024-08-20 21:06] LABS: Bedside Glucose 94 mg/dL (74-106)
[2024-08-20 22:14] VITALS: BP 145/64; PULSE 74; O2SAT 97
[2024-08-20] MEDS: amLODIPine 5 MG Tablet PO (22:21)
[2024-08-21] MEDS: Acetaminophen 500 MG Tablet 1000 MG PO ×3 (05:50→21:08)
[2024-08-21 06:34] LABS: Bedside Glucose 153 mg/dL (74-106)
[2024-08-21 06:52] LABS: Hemoglobin 8.1 g/dL (12.0-15.0)
[2024-08-21] MEDS: Doxycycline 100 MG CAPSULE PO ×2 (09:00→21:08)
[2024-08-21] MEDS: Ferrous Sulfate 325 MG Tablet PO (09:00)
[2024-08-21] MEDS: Lactobacillis Acidophilus 1 CAP PO (09:00)
[2024-08-21] MEDS: Vibegron 75 MG TABLET PO (09:00)
[2024-08-21] MEDS: Folic Acid 1 MG Tablet PO (09:00)
[2024-08-21] MEDS: Lisinopril 40 MG Tablet PO (09:01)
[2024-08-21] MEDS: Omega-3 Acid Ethyl Esters 1 GM Capsule PO (09:01)
[2024-08-21] MEDS: Calcium Carbonate 500 MG Tablet 1000 MG PO (09:01)
[2024-08-21] MEDS: Methenamine Hippurate 1 GM Tablet PO ×2 (09:01→21:08)
[2024-08-21] MEDS: Cyanocobalamin 500 MCG Tablet 2000 MCG PO (09:01)
[2024-08-21] MEDS: Cholecalciferol (VIT D3) 25 MCG TABLET (1,000 UNITS) 50 MCG PO (09:01)
[2024-08-21] MEDS: oxyCODONE 5 MG Tablet PO ×3 (09:02→20:32)
[2024-08-21] MEDS: Nystatin/Triamcin Cream Tube 1 APPLIC TOPICAL ×2 (09:02→21:08)
[2024-08-21] MEDS: Insulin Lispro 100 UNIT/ML INSULN.PEN 25 UNIT SC ×2 (09:05→17:45)
[2024-08-21 09:45] VITALS: BP 135/49; PULSE 61; RESP 18; TEMP 36.7; O2SAT 98
[2024-08-21 12:05] LABS: Bedside Glucose 89 mg/dL (74-106)
[2024-08-21 16:42] LABS: Bedside Glucose 174 mg/dL (74-106)
[2024-08-21 20:25] VITALS: PULSE 75; O2SAT 95
[2024-08-21] MEDS: amLODIPine 5 MG Tablet PO (21:08)
[2024-08-21 22:08] LABS: Bedside Glucose 96 mg/dL (74-106)
[2024-08-22] MEDS: oxyCODONE 5 MG Tablet PO ×3 (05:34→20:02)
[2024-08-22] MEDS: Acetaminophen 500 MG Tablet 1000 MG PO ×3 (05:35→22:01)
[2024-08-22 05:52] VITALS: PULSE 55; O2SAT 97
[2024-08-22 06:23] LABS: Hematocrit 29.2 % (37-47)
[2024-08-22 06:26] LABS: Bedside Glucose 176 mg/dL (74-106)
[2024-08-22] MEDS: Insulin Lispro 100 UNIT/ML INSULN.PEN 25 UNIT SC ×2 (08:40→12:07)
[2024-08-22] MEDS: Cholecalciferol (VIT D3) 25 MCG TABLET (1,000 UNITS) 50 MCG PO (08:42)
[2024-08-22] MEDS: Calcium Carbonate 500 MG Tablet 1000 MG PO (08:42)
[2024-08-22] MEDS: Cyanocobalamin 500 MCG Tablet 2000 MCG PO (08:42)
[2024-08-22] MEDS: Doxycycline 100 MG CAPSULE PO ×2 (08:42→22:00)
[2024-08-22] MEDS: Lisinopril 40 MG Tablet PO (08:42)
[2024-08-22] MEDS: Lactobacillis Acidophilus 1 CAP PO (08:42)
[2024-08-22] MEDS: Omega-3 Acid Ethyl Esters 1 GM Capsule PO (08:42)
[2024-08-22] MEDS: Ferrous Sulfate 325 MG Tablet PO (08:42)
[2024-08-22] MEDS: Vibegron 75 MG TABLET PO (08:42)
[2024-08-22] MEDS: Folic Acid 1 MG Tablet PO (08:42)
[2024-08-22] MEDS: Methenamine Hippurate 1 GM Tablet PO ×2 (08:42→22:00)
[2024-08-22] MEDS: Nystatin/Triamcin Cream Tube 1 APPLIC TOPICAL ×2 (08:43→22:01)
[2024-08-22 09:28] VITALS: BP 139/69; PULSE 85; RESP 16; TEMP 36.7; O2SAT 97
[2024-08-22 11:45] LABS: Bedside Glucose 129 mg/dL (74-106)
--- NOTE | 2024-08-22 12:11 | NURSING ---
Observed patient ambulating in hallway unassisted with walker. Educated patient to use call light and wait for staff to accompany her with transfers. Patient acknowledged teaching and stated she would wait for staff. Patient observed ambulating from bathroom to recliner with walker without staff present. Reinforced education for patient to use call light and wait for staff to assist her. Reported both instances to [employer] OPERATOR [employer].
[2024-08-22 17:13] LABS: Bedside Glucose 123 mg/dL (74-106)
[2024-08-22] MEDS: Insulin Lispro 100 UNIT/ML INSULN.PEN 15 UNIT SC (17:54)
[2024-08-22] MEDS: amLODIPine 5 MG Tablet PO (22:00)
[2024-08-22 22:01] LABS: Bedside Glucose 109 mg/dL (74-106)
[2024-08-23] MEDS: oxyCODONE 5 MG Tablet PO ×2 (00:06→23:11)
[2024-08-23 05:42] LABS: Hematocrit 25.8 % (37-47)
[2024-08-23] MEDS: Acetaminophen 500 MG Tablet 1000 MG PO ×3 (06:30→21:01)
[2024-08-23 06:46] LABS: Bedside Glucose 169 mg/dL (74-106)
[2024-08-23 07:59] VITALS: BP 136/56; PULSE 70; RESP 18; O2SAT 96
[2024-08-23] MEDS: traMADol 50 MG Tablet PO (09:09)
[2024-08-23 11:46] LABS: Bedside Glucose 188 mg/dL (74-106)
[2024-08-23 15:24] VITALS: BP 163/61; PULSE 101; RESP 20; TEMP 36.6; O2SAT 96
--- NOTE | 2024-08-23 15:27 | CHAPLAIN ---
Type of Pastoral Visit ___ Initial Visit _x__ Follow-up Visit ___ On-call Visit ___ General Patient Visit ___ Spiritual Assessment ___ Family Conference ___ Bereavement ___ Rapid Response ___ Code Blue ___ Other (describe below) Pastoral Care Referral From _x__ Patient ___ Family _x__ Nurse ___ Physician ___ Shuttleless Loom Weaver ___ Telecom Sales Consultant ___ Other (describe below) Sacrament/Intervention _x__ Active listening ___ Anointing ___ Temple ___ Bereavement ___ Communion ___ Shara exploration ___ ___ Life review _x__ Prayer ___ Reconciliation ___ Sacrament of Sick _x__ Supportive presence ___ Wedding ___ Other (describe below) Pastoral Comments patient was seen recently in [facility]; pt is to have a procedure yet this afternoon and SENIOR QUALITY ASSURANCE ENGINEER mentions that she would benefit from support; pt admits that she is apprehensive about the procedure and what they might find; pt expresses dismay about one more thing; pt welcomes time to talk about this feeling and to have a prayer; pt mentions that her family will be coming in over the weekend and will have a little Pooja libertarian in the TCU; pt is looking forward to that occasion and states that her is managing pretty well right now
[2024-08-23 15:46] LABS: Vitamin B12 863 pg/mL (211-911); Vitamin D,25 Hydroxy 31.8 ng/mL
--- NOTE | 2024-08-23 16:22 | PCM.HP.STD ---
HPI - General General Date of Admission: 08/19/24 Date of Service: 08/23/24 Chief Complaint: Anemia HPI Narrative ARSALAN SPENCE, is a 79 F who presents with worsening left knee pain. She has a h/o recurrent uti, dx with L knee PJI, taken to OR 04/27/[address] [facility] [address] Casillas for I&D and spacer placement. Her Surg cx were negative. She was given 6 week course iv vanc and ceftriaxone, completed 06/08/24. She was started on methenamine for uti prophylaxis. She is at no uti since starting that, but does have some irritation from the med chronically in bladder which resolves with urination. Taken back to OR 08/16/[address] Casillas for 2nd stage replacement. Feeling ok this AM, pain controlled, on po doxy. I was consulted to see her due to worsening hemoglobin a fecal positive stools in the setting of a anticoagulation. [facility] Medical History History of revision of total replacement of left knee joint Wears hearing aid Wears glasses Walker as ambulation aid Low iron High cholesterol Dietary restriction Gastric reflux History of echocardiogram History of stress test Cardiology follow-up encounter History of ESBL E. coli infection Irregular heart beat History of TIA (transient ischemic attack) and stroke Constipation Vaginal irritation Furunculosis Renal stone Insulin dependent diabetes mellitus Bladder disease Back pain Difficulty swallowing History of diverticulitis History of pain when walking History of edema History of irregular heartbeat DDD (degenerative disc disease), lumbar Osteoarthritis Chronic back pain Balance disorder Lumbar radiculopathy Neuropathy Obesity GERD (gastroesophageal reflux disease) Osteoporosis Hearing loss Chronic UTI (urinary tract infection) Glaucoma Essential (primary) hypertension Home Medications ?Medication ?Instructions ?Recorded ?Last Taken ?Type cholecalciferol (vitamin D3) 50 2,000 unit PO DAILY supplement 07/20/19 08/18/24 10:10 History mcg (2,000 unit) capsule omeprazole magnesium 20 mg 20 mg PO DAILY PRN Heartburn 07/20/19 08/17/24 History tablet,delayed release (Prilosec OTC) cyanocobalamin (vitamin B-12) 2,000 mcg PO DAILY supplement 06/14/20 08/18/24 10:10 History 1,000 mcg capsule omega-3 fatty acids-fish oil 340 1 ea PO DAILY SUPPLEMENT 08/30/20 08/12/24 History mg-1,000 mg capsule blood sugar diagnostic (FreeStyle #100 ea 07/16/21 Unknown Rx Precision Esvin Strips) d-mannose 500 mg capsule 2,100 mg PO BID SUPPLEMENT 03/29/22 08/12/24 History estradiol 0.01% (0.1 mg/gram) 1 appful vaginal MOWEFR HORMONE 04/10/22 08/13/24 History vaginal cream (Estrace) flash glucose sensor (FreeStyle #1 ea 01/23/23 Unknown Rx Shani 2 Sensor kit) Handicap Placard #1 ea 12/24/23 Unknown Rx insulin lispro protamine-lispro 25 unit subcut TID Diabetes 01/29/24 08/15/24 History 100 unit/mL (50-50) subcutaneous pen (Humalog Mix 50-50 KwikPen) folic acid 1 mg tablet 1 mg PO DAILY supplement #90 tabs 02/11/24 08/18/24 10:05 Rx ferrous sulfate 325 mg (65 mg 325 mg PO DAILY supplement #90 tabs 04/16/24 08/18/24 10:05 Rx iron) tablet methenamine hippurate 1 gram tablet 1 g PO BID URINE PROTECTION 30 06/01/24 08/18/24 22:55 Rx days #60 tabs lisinopril 40 mg tablet 40 mg PO DAILY BP #0 tabs 06/09/24 08/18/24 05:45 Rx amlodipine 10 mg tablet 5 mg PO QHS BP 07/21/24 08/18/24 22:50 History lactobacillus combination no.9 4 4,000 mmu cells PO DAILY SUPPLEMENT 07/21/24 08/18/24 10:10 History billion cell capsule (Adult 50 Plus Probiotic) vibegron 75 mg tablet (Gemtesa) 75 mg PO QDAY OAB 07/21/24 08/18/24 10:05 History BD Ultra-Fine Short Pen Needle 31 #300 ea 08/02/24 Unknown Rx gauge x 5/16 (pen needle, diabetic) nystatin-triamcinolone 100,000 1 applic topical BID SKIN 08/02/24 08/18/24 22:50 History unit/g-0.1 % topical cream calcium carbonate 1,200 mg PO DAILY SUPPLEMENT 08/10/24 08/18/24 10:04 History doxycycline monohydrate 100 mg 100 mg PO BID Infection 30 days 08/17/24 Unknown Rx capsule #60 caps acetaminophen 500 mg tablet 1,000 mg (2 x 500 mg) PO TID Pain 08/19/24 08/19/24 06:50 Rx 14 days #84 tabs oxycodone 5 mg tablet 5 - 10 mg (1 - 2 x 5 mg) PO Q4H 08/19/24 08/19/24 06:55 Rx PRN PRN Pain Score 4-10 7 days #42 tabs rivaroxaban 10 mg tablet (Xarelto) 10 mg PO DAILY@0600 blood thinner 08/19/24 08/19/24 06:50 Rx #0 tabs sennosides 8.6 mg-docusate sodium 2 tab PO BID constipation 2 days 08/19/24 08/18/24 22:50 Rx 50 mg tablet (Stimulant Laxative #8 tabs Plus) Allergy/AdvReac Type Severity Reaction Status Date / Time ciprofloxacin Allergy Severe impairment Verified 08/16/24 09:25 of motor skills hydrochlorothiazide Allergy Mild other Verified 08/16/24 09:25 gatifloxacin (From Tequin) Allergy Unknown Other Verified 08/16/24 09:25 lidocaine (From Xylocaine) Allergy Unknown Other Verified 08/16/24 09:25 Sulfa (Sulfonamide Allergy Unknown unknown Verified 08/16/24 09:25 Antibiotics) metformin AdvReac Intermediate loose Verified 08/16/24 09:25 stool, bladder infections sitagliptin (From Janumet) AdvReac Intermediate loose stool Verified 08/16/24 09:25 batroxobin AdvReac Unknown unknown Verified 08/16/24 09:25 exenatide (From Byetta) AdvReac Unknown unknown Verified 08/16/24 09:25 nizatidine (From Axid) AdvReac Unknown unknown Verified 08/16/24 09:25 sertraline (From Zoloft) AdvReac Unknown unknown Verified 08/16/24 09:25 simvastatin (From Zocor) AdvReac Unknown unknown Verified 08/16/24 09:25 trandolapril (From Mavik) AdvReac Unknown unknown Verified 08/16/24 09:25 betaxolol AdvReac Other Verified 08/16/24 09:25 doxazosin AdvReac Other Verified 08/16/24 09:25 olmesartan (From Benicar) AdvReac Diarrhea Verified 08/16/24 09:25 Family History Mother CVA (cerebral vascular accident) Aunt Breast cancer Surgical History Hx of total knee arthroplasty Hx of total knee arthroplasty S/P total hip arthroplasty S/P hip hemiarthroplasty History of total left hip replacement Hx of arthroscopic knee surgery Hx of eye surgery Hx of bilateral cataract extraction Hx of total knee arthroplasty Hx of knee surgery Hx of total knee arthroplasty H/O foot surgery H/O: hysterectomy History of cataract surgery H/O tubal ligation History of cholecystectomy History of tonsillectomy Social History household members: spouse Smoking Status: Never smoker alcohol intake: current alcohol intake frequency: a few times a week substance use type: does not use diet: diabetic well-balanced diet: daily or most days what type of physical activity do you participate in: walking frequency: 1-2 times per week ROS Constitutional Constitutional: Reports weakness; Denies chills, fever(s) or weight gain ENT HEENT: Denies headache(s), nasal congestion or nasal discharge Cardiovascular Cardiovascular: Denies chest pain or palpitations Respiratory/Chest Respiratory/Chest: Denies cough, excessive phlegm production or shortness of breath with exertion Gastrointestinal Gastrointestinal: Denies abdominal pain, nausea or vomiting Genitourinary Genitourinary: Denies dysuria Musculoskeletal Musculoskeletal: Denies joint pain or joint swelling Integumentary Integumentary: Denies rash or wounds Neurologic Neurologic: Denies focal weakness, numbness or tingling Psychiatric Psychiatric: Denies anxiety, auditory hallucinations, depression, homicidal ideation or suicidal ideation Vital Signs Vital Signs Vital Signs: 08/22/24 22:00 08/23/24 07:59 08/23/24 10:00 Temperature Temperature Source Pulse Rate 70 Pulse Strength Normal (2+) Normal (2+) Respiratory Rate 18 Blood Pressure 136/56 H Blood Pressure Mean 82 Blood Pressure Source Monitor Blood Pressure Position Sitting Blood Pressure Location Right Arm Pulse Ox 96 Oxygen Delivery Method Room Air 12/16/24 15:24 Temperature 97.8 F Temperature Source Temporal Pulse Rate 101 H Pulse Strength Respiratory Rate 20 H Blood Pressure 163/61 H Blood Pressure Mean 95 Blood Pressure Source Monitor Blood Pressure Position Semi-Fowlers Blood Pressure Location Right Arm Pulse Ox 96 Oxygen Delivery Method Room Air Weight Weight: 195 lb 3.192 oz Body Mass Index (BMI) 31.5 Physical Exam Const alert, oriented x3, no apparent distress and healthy appearing General Appearance: cooperative GI normal to inspection, nondistended, normoactive bowel sounds, soft to palpation, non-tender and non-distended Percussion: normal to percussion Rectal Exam: deferred Results Lab / Micro Data 08/23/24 05:19 08/20/24 05:20 Labs: Laboratory Results - last 24 hr 08/20/24 05:20: Vitamin B12 863, Vitamin D 25-Hydroxy 31.8 08/22/24 16:43: POC Glucose 123 H 08/22/24 21:33: POC Glucose 109 H 08/23/24 05:19: Hgb 8.0 L, Hct 25.8 L 08/23/24 06:27: POC Glucose 169 H 08/23/24 11:13: POC Glucose 188 H Micro: Microbiology 08/23/24 09:45 Nasal Secretion SARS-CoV-2 Antigen (Rapid) - Final Assessment & Plan Assessment/Plan (1) Status post revision of total replacement of left knee: PLAN: 79-year-old with h/o recurrent uti, dx with L knee PJI, taken to OR 04/27/[address] [facility] [address] Casillas for I&D and spacer placement. Surg cx were negative. She was given 6 week course iv vanc and ceftriaxone, completed 06/08/24. She was started on methenamine for uti prophylaxis. She had no uti since starting that, but does have some irritation from the med chronically in bladder which resolves with urination. Taken back to OR 08/16/[address] Casillas for 2nd stage replacement. She will be continuing po doxy, recommend 30 day supply and ID followup in a month. Will continue methenamine for uti prophylaxis as long as she is able to tolerate it. Her hemoglobin was at 11 and slowly been drifting down to 8. She will undergo an upper endoscopy to evaluate upper GI tract. She was explained alternatives, risk and benefits include not withstanding bleeding, infection, sepsis, perforation, need for charge and . She will have an ASA of 3. (2) Iron deficiency anemia:
--- NOTE | 2024-08-23 16:30 | NURSING ---
Addendum entered by Jeremy Antunez 08/23/24 19:49: PT RETURNED TO FLOOR BY BED AT 1845. NEW ORDERS FOR CARAFATE AND PROTONIX. Original Note: PT LEFT FLOOR BY BED AT 1625 FOR PROCEDURE WITH . FAMILY WITH PT.
[2024-08-23 17:19] LABS: Bedside Glucose 173 mg/dL (74-106)
[2024-08-23 19:00] VITALS: BP 140/49; PULSE 61; O2SAT 95
[2024-08-23] MEDS: Cholecalciferol (VIT D3) 25 MCG TABLET (1,000 UNITS) 50 MCG PO (19:05)
[2024-08-23] MEDS: Cyanocobalamin 500 MCG Tablet 2000 MCG PO (19:06)
[2024-08-23] MEDS: Lactobacillis Acidophilus 1 CAP PO (19:07)
[2024-08-23] MEDS: Calcium Carbonate 500 MG Tablet 1000 MG PO (19:07)
[2024-08-23] MEDS: Lisinopril 40 MG Tablet PO (19:07)
[2024-08-23] MEDS: Omega-3 Acid Ethyl Esters 1 GM Capsule PO (19:08)
[2024-08-23] MEDS: Folic Acid 1 MG Tablet PO (19:08)
[2024-08-23] MEDS: Ferrous Sulfate 325 MG Tablet PO (19:08)
[2024-08-23] MEDS: Vibegron 75 MG TABLET PO (19:08)
[2024-08-23] MEDS: Insulin Lispro 100 UNIT/ML INSULN.PEN 15 UNIT SC (19:09)
[2024-08-23 19:30] LABS: Bedside Glucose 163 mg/dL (74-106)
[2024-08-23 20:00] VITALS: PULSE 60; RESP 18; O2SAT 95
[2024-08-23] MEDS: Nystatin/Triamcin Cream Tube 1 APPLIC TOPICAL (20:58)
[2024-08-23] MEDS: amLODIPine 5 MG Tablet PO (20:59)
[2024-08-23] MEDS: Doxycycline 100 MG CAPSULE PO (20:59)
[2024-08-23] MEDS: Methenamine Hippurate 1 GM Tablet PO (20:59)
[2024-08-23] MEDS: Senna/Docusate Sodium 1 Tablet 2 TABLET PO (21:00)
[2024-08-23] MEDS: Pantoprazole Sodium 40 MG Tablet PO (21:24)
[2024-08-23 22:06] LABS: Bedside Glucose 115 mg/dL (74-106)
[2024-08-24] MEDS: Acetaminophen 500 MG Tablet 1000 MG PO ×3 (05:35→21:39)
[2024-08-24] MEDS: Sucralfate 1 GM Tablet PO ×3 (06:01→17:03)
[2024-08-24 06:03] LABS: Hematocrit 27.2 % (37-47); Hemoglobin 8.4 g/dL (12.0-15.0)
[2024-08-24 06:23] LABS: Bedside Glucose 160 mg/dL (74-106)
--- NOTE | 2024-08-24 06:49 | NURSING ---
Patient given and accepted prune juice per bowel protocol.
[2024-08-24] MEDS: Insulin Lispro 100 UNIT/ML INSULN.PEN 15 UNIT SC ×3 (08:03→17:45)
[2024-08-24] MEDS: Doxycycline 100 MG CAPSULE PO ×2 (08:05→21:39)
[2024-08-24] MEDS: Pantoprazole Sodium 40 MG Tablet PO ×2 (08:09→21:39)
[2024-08-24] MEDS: Omega-3 Acid Ethyl Esters 1 GM Capsule PO (08:09)
[2024-08-24] MEDS: Senna/Docusate Sodium 1 Tablet 2 TABLET PO (08:10)
[2024-08-24] MEDS: Calcium Carbonate 500 MG Tablet 1000 MG PO (08:11)
[2024-08-24] MEDS: Ferrous Sulfate 325 MG Tablet PO (08:12)
[2024-08-24] MEDS: Folic Acid 1 MG Tablet PO (08:13)
[2024-08-24] MEDS: Lisinopril 40 MG Tablet PO (08:13)
[2024-08-24 08:22] VITALS: BP 131/67; PULSE 98; O2SAT 95
[2024-08-24] MEDS: Methenamine Hippurate 1 GM Tablet PO ×2 (09:38→21:39)
[2024-08-24] MEDS: Lactobacillis Acidophilus 1 CAP PO (09:38)
[2024-08-24] MEDS: Vibegron 75 MG TABLET PO (09:39)
[2024-08-24] MEDS: Cholecalciferol (VIT D3) 25 MCG TABLET (1,000 UNITS) 50 MCG PO (09:39)
--- NOTE | 2024-08-24 09:57 | NURSING ---
WOUND VAC REMOVED PER ORDERS. MODERATE BLEEDING TO LOWER INCISION AND SLIGHTLY OPENED. SMALL STERI STRIP APPLIED AND DRY DRESSING WITH PONCHO WRAP PER ORDER. NO S/S OF INFECTION,BRUISING AND SWELLING TO KNEE. POLAR CARE ON. PT TOLERATED WELL AND WILL CONTINUE TO MONITOR.
[2024-08-24 10:30] VITALS: PULSE 65; RESP 18; O2SAT 98
[2024-08-24] MEDS: Cyanocobalamin 500 MCG Tablet 2000 MCG PO (10:39)
[2024-08-24] MEDS: Nystatin/Triamcin Cream Tube 1 APPLIC TOPICAL ×2 (10:41→21:45)
[2024-08-24 11:39] VITALS: BMI 31.1
[2024-08-24 11:39] LABS: Bedside Glucose 138 mg/dL (74-106)
[2024-08-24] MEDS: traMADol 50 MG Tablet PO (11:49)
[2024-08-24 15:19] VITALS: RESP 20; TEMP 37.1
[2024-08-24 16:59] LABS: Bedside Glucose 208 mg/dL (74-106)
[2024-08-24] MEDS: amLODIPine 5 MG Tablet PO (21:39)
[2024-08-24 21:41] LABS: Bedside Glucose 85 mg/dL (74-106)
--- NOTE | 2024-08-24 22:00 | NURSING ---
Dressing on left knee changed. Old dressing had a moderately large amount of serosanguineous drainage. Original steri strip fell off, new one applied to small open area at the distal end of the incision where the drainage appears to be coming from. x2 ABD applied to surgical incision and secured with PONCHO wrap per order.
[2024-08-25 06:15] LABS: Bedside Glucose 155 mg/dL (74-106)
[2024-08-25] MEDS: Rivaroxaban 10 MG Tablet PO (06:30)
[2024-08-25] MEDS: Acetaminophen 500 MG Tablet 1000 MG PO ×3 (06:30→20:18)
[2024-08-25] MEDS: Sucralfate 1 GM Tablet PO ×3 (06:30→16:36)
[2024-08-25 08:00] VITALS: BP 149/71; PULSE 100; RESP 20; TEMP 36.6; O2SAT 94
[2024-08-25] MEDS: Nystatin/Triamcin Cream Tube 1 APPLIC TOPICAL ×2 (08:24→20:20)
[2024-08-25] MEDS: Insulin Lispro 100 UNIT/ML INSULN.PEN 15 UNIT SC ×3 (08:24→17:43)
[2024-08-25] MEDS: oxyCODONE 5 MG Tablet PO ×2 (08:25→12:58)
[2024-08-25] MEDS: Omega-3 Acid Ethyl Esters 1 GM Capsule PO (08:26)
[2024-08-25] MEDS: Cholecalciferol (VIT D3) 25 MCG TABLET (1,000 UNITS) 50 MCG PO (08:26)
[2024-08-25] MEDS: Calcium Carbonate 500 MG Tablet 1000 MG PO (08:26)
[2024-08-25] MEDS: Lactobacillis Acidophilus 1 CAP PO (08:26)
[2024-08-25] MEDS: Senna/Docusate Sodium 1 Tablet 2 TABLET PO (08:26)
[2024-08-25] MEDS: Lisinopril 40 MG Tablet PO (08:26)
[2024-08-25] MEDS: Pantoprazole Sodium 40 MG Tablet PO ×2 (08:26→20:19)
[2024-08-25] MEDS: Methenamine Hippurate 1 GM Tablet PO ×2 (08:27→20:19)
[2024-08-25] MEDS: Doxycycline 100 MG CAPSULE PO ×2 (08:27→20:19)
[2024-08-25] MEDS: Ferrous Sulfate 325 MG Tablet PO (08:27)
[2024-08-25] MEDS: Vibegron 75 MG TABLET PO (08:27)
[2024-08-25] MEDS: Folic Acid 1 MG Tablet PO (08:27)
[2024-08-25] MEDS: Cyanocobalamin 500 MCG Tablet 2000 MCG PO (08:27)
[2024-08-25 10:00] VITALS: PULSE 100; RESP 20; O2SAT 94
--- NOTE | 2024-08-25 10:07 | CASEMGMT ---
Social Work IDT met with patient and for care plan meeting. Discussed patient's progress in PT/OT/ST/SN. Educated to Medicare benefit. Provided pt with written communication on insurance process and copay coverage during stay. Discussed DC planning. Pt requesting to DC 08/27, prior to her family [place]. SW inquired to if he feels comfortable with caring for pt at current LOC. is uncertain. SW offered therapy training to be hands-on. agreed and scheduled for 08/26 at 2:45 pm. /pt to follow up after training with decision. SW educated to possible GREG order on 08/28 for [place] gathering, if pt will not DC prior. SW will continue to follow. Marcia Ayoub, PREPARATOR CO FOUNDER AND CHIEF STRATEGY OFFICER
[2024-08-25 12:06] LABS: Bedside Glucose 148 mg/dL (74-106)
--- NOTE | 2024-08-25 15:35 | CHAPLAIN ---
Type of Pastoral Visit ___ Initial Visit ___ Follow-up Visit ___ On-call Visit ___ General Patient Visit ___ Spiritual Assessment ___ Family Conference ___ Bereavement ___ Rapid Response ___ Code Blue ___ Other (describe below) Pastoral Care Referral From ___ Patient ___ Family ___ Nurse ___ Physician ___ Rn Radiation ___ Director Organizational ___ Other (describe below) Sacrament/Intervention ___ Active listening ___ Anointing ___ Rastafari ___ Bereavement ___ Communion ___ Shara exploration ___ ___ Life review ___ Prayer ___ Reconciliation ___ Sacrament of Sick ___ Supportive presence ___ Wedding ___ Other (describe below) Pastoral Comments the patient saw this high school social studies tutor out in the hallway and called for the same to come into her room; pt wanted to give update on her procedure and to express her feelings that she was relieved at the result; pt says that she is hopeful that this was the last thing I have to deal with now; pt talks about the weather and the day's activities until the OT came in to do a session with her
[2024-08-25 17:38] LABS: Bedside Glucose 104 mg/dL (74-106)
[2024-08-25] MEDS: amLODIPine 5 MG Tablet PO (20:20)
[2024-08-25 20:23] VITALS: BP 125/76; PULSE 68
[2024-08-25 21:53] LABS: Bedside Glucose 112 mg/dL (74-106)
[2024-08-26 05:57] LABS: Hematocrit 26.7 % (37-47); Hemoglobin 8.3 g/dL (12.0-15.0)
[2024-08-26 06:31] LABS: Bedside Glucose 153 mg/dL (74-106)
[2024-08-26] MEDS: oxyCODONE 5 MG Tablet PO ×2 (06:52→12:40)
[2024-08-26] MEDS: Rivaroxaban 10 MG Tablet PO (06:53)
[2024-08-26] MEDS: Acetaminophen 500 MG Tablet 1000 MG PO ×3 (06:53→22:28)
[2024-08-26] MEDS: Sucralfate 1 GM Tablet PO ×3 (06:53→16:49)
[2024-08-26] MEDS: Insulin Lispro 100 UNIT/ML INSULN.PEN 15 UNIT SC ×3 (07:52→16:49)
[2024-08-26] MEDS: Lactobacillis Acidophilus 1 CAP PO (07:53)
[2024-08-26] MEDS: Folic Acid 1 MG Tablet PO (07:53)
[2024-08-26] MEDS: Calcium Carbonate 500 MG Tablet 1000 MG PO (07:53)
[2024-08-26] MEDS: Omega-3 Acid Ethyl Esters 1 GM Capsule PO (07:53)
[2024-08-26] MEDS: Ferrous Sulfate 325 MG Tablet PO (07:53)
[2024-08-26] MEDS: Methenamine Hippurate 1 GM Tablet PO ×2 (07:53→22:25)
[2024-08-26] MEDS: Doxycycline 100 MG CAPSULE PO ×2 (07:53→22:25)
[2024-08-26] MEDS: Vibegron 75 MG TABLET PO (07:53)
[2024-08-26] MEDS: Cholecalciferol (VIT D3) 25 MCG TABLET (1,000 UNITS) 50 MCG PO (07:53)
[2024-08-26] MEDS: Nystatin/Triamcin Cream Tube 1 APPLIC TOPICAL ×2 (07:53→22:25)
[2024-08-26] MEDS: Pantoprazole Sodium 40 MG Tablet PO ×2 (07:53→22:27)
[2024-08-26] MEDS: Cyanocobalamin 500 MCG Tablet 2000 MCG PO (07:53)
[2024-08-26] MEDS: Lisinopril 40 MG Tablet PO (07:54)
[2024-08-26 10:36] VITALS: BP 150/56; PULSE 61; RESP 18; TEMP 36.8; O2SAT 98
[2024-08-26 12:07] LABS: Bedside Glucose 131 mg/dL (74-106)
--- NOTE | 2024-08-26 15:07 | CASEMGMT ---
Social Work and pt presented to this worker's office after therapy training. Both feel comfortable with pt discharging home and requesting DC 08/27. IDT agreeable. Confirmed HHC and offered list of providers with quality and resource data. Pt denied and agrees to [facility] for PT/OT/SN. Pt denies DME needs. to transport. SW completed BIMS () and PHQ-2 () for MDS assessment. SW phoned referral to [facility] PT/OT/SN Plan: DC home with 08/27, [facility] PT/OT/SN ADRIANA StevensW
[2024-08-26 17:01] LABS: Bedside Glucose 143 mg/dL (74-106)
--- NOTE | 2024-08-26 19:20 | DS.PCM_ITS ---
Providers Date of Admission: 08/19/24 Primary Care Physician: Dr. Luther Torre MD Consultations 08/20/24 11:25 Consult: Gastroenterology Routine Consulting Provider: [facility] Reason for Consult: anemia, + hemoccult EMERGENT Consult: No MD Notified: Yes Date Notified: 08/20/24 Time Notified: 11:25 Method of Notification: Text Reason For Visit: ERAS REVISION,L TOTAL KNEE Diagnosis Discharge Diagnosis (1) Status post revision of total replacement of left knee: Status: Acute Code(s): Z96.652 - Presence of left artificial knee joint (2) Iron deficiency anemia: Status: Acute Code(s): D50.9 - Iron deficiency anemia, unspecified Plan 79 year old female with below past medical history underwent revision left total knee replacement, removal antibiotic spacer 08/16/[address] Casillas, admitted to TCU with debility, here for rehabilitation, strengthening, prior to discharge home with . * Debility - PT/OT. * Pain - Tylenol 1000mg tid, Tramadol 50mg q6 prn pain (1-5), Oxycodone 5mg q4 prn pain (6-10). * Bowel - senna/colace 2 tablets bid. * Adult immunization - Administer pneumonia vaccine, covid vaccine, flu vaccine as appropriate. * DVT prophylaxis - Xarelto 10mg daily thru 08/30/2024, then Aspirin 81mg po bid thru 09/14/2023. * Hypertension - Lisinopril 40mg daily, amlodipine 5mg qhs. * Calcium deficiency - TUMS 1000mg daily. * Vitamin D deficiency - D3 50mcg daily. * Vitamin B12 deficiency - Vitamin B12 2000mcg daily. * Left prosthetic knee infection s/p revision - Doxycycline 100mg bid thru 09/18/2024. * Iron deficiency anemia - Ferrous sulfate 325mg daily. * Folate deficiency - Folic acid 1mg daily. * Diabetes Mellitus II - Humalog 25 units tidcm. * GI prophylaxis - Lactobacillus 1 capsule daily. * Recurrent UTI - Methenamine 1gm bid. * Tinea Corporis - Mycolog topical bid. * Hyperlipidemia - [place] 3 1 gm daily. * GERD - Pantoprazole 20mg daily. * Overactive bladder - Gemtesa 75mg daily. Medications at Discharge Home Medications cholecalciferol (vitamin D3) 50 mcg (2,000 unit) capsule 2,000 unit PO DAILY supplement 07/20/19 cyanocobalamin (vitamin B-12) 1,000 mcg capsule 2,000 mcg PO DAILY supplement 06/14/20 omega-3 fatty acids-fish oil 340 mg-1,000 mg capsule 1 ea PO DAILY SUPPLEMENT 08/30/20 blood sugar diagnostic (FreeStyle Precision Esvin Strips) #100 ea 07/16/21 flash glucose sensor (FreeStyle Shani 2 Sensor kit) #1 ea 01/23/23 Handicap Placard #1 ea 12/24/23 insulin lispro protamine-lispro 100 unit/mL (50-50) subcutaneous pen (Humalog Mix 50-50 KwikPen) 25 unit subcut TID Diabetes 01/29/24 folic acid 1 mg tablet 1 mg PO DAILY supplement #90 tabs 02/11/24 ferrous sulfate 325 mg (65 mg iron) tablet 325 mg PO DAILY supplement #90 tabs 04/16/24 methenamine hippurate 1 gram tablet 1 g PO BID URINE PROTECTION 30 days #60 tabs 06/01/24 lisinopril 40 mg tablet 40 mg PO DAILY BP #0 tabs 06/09/24 amlodipine 10 mg tablet 5 mg PO QHS BP 07/21/24 lactobacillus combination no.9 4 billion cell capsule (Adult 50 Plus Probiotic) 4,000 mmu cells PO DAILY SUPPLEMENT 07/21/24 vibegron 75 mg tablet (Gemtesa) 75 mg PO QDAY OAB 07/21/24 BD Ultra-Fine Short Pen Needle 31 gauge x 5/16 (pen needle, diabetic) #300 ea 08/02/24 nystatin-triamcinolone 100,000 unit/g-0.1 % topical cream 1 applic topical BID SKIN 08/02/24 calcium carbonate 1,200 mg PO DAILY SUPPLEMENT 08/10/24 acetaminophen 500 mg tablet 1,000 mg (2 x 500 mg) PO TID #0 tabs 08/26/24 aspirin 81 mg tablet,delayed release 81 mg PO BIDCM 18 days #0 tabs 08/26/24 doxycycline monohydrate 100 mg capsule 100 mg PO BID 22 days #44 caps 08/26/24 oxycodone 5 mg tablet 5 mg PO Q4H PRN PRN Pain Score 6-10 Or Pre Pt/Ot 7 days #42 tabs 08/26/24 pantoprazole 40 mg tablet,delayed release 40 mg PO BID 30 days #60 tabs 08/26/24 sennosides 8.6 mg-docusate sodium 50 mg tablet (Stimulant Laxative Plus) 2 tab PO BID 30 days #120 tabs 08/26/24 sucralfate 1 gram tablet 1 g PO TID@0700,1100,1600 30 days #90 tabs 08/26/24 tramadol 50 mg tablet 50 mg PO Q6H PRN PRN Pain Score 1-5 Or Pre Pt/Ot 7 days #28 tabs 08/26/24 Hospital Course Operations - (See below.) Procedures None Summary of Care Provided Minutes Spent on Discharge: 35 Hospital Course: 79 year old female with below past medical history underwent revision left total knee replacement, removal antibiotic spacer 08/16/[address] Casillas, admitted to TCU with debility, here for rehabilitation, strengthening, prior to discharge home with . Impressions : - Normal esophagus. - Oozing gastric ulcer with a visible vessel. Treated with a heater probe. Biopsied. - Non-bleeding duodenal ulcers with no stigmata of bleeding. Biopsied. Recommendations : - Return patient to hospital cyr for ongoing care. - Resume regular diet. - Continue present medications. - Await pathology results. - Repeat upper endoscopy. -Protonix 40 mg twice daily -Carafate 1 g 3 times a day Discharge home with 08/27/2024, [facility] PT/OT/SN. Physical Exam Const alert General Appearance: cooperative HEENT normocephalic Eyes PERRL and EOMs intact bilaterally Neck supple, no JVD and no carotid bruits Resp normal respiratory effort, normal air movement and clear to auscultation bilaterally Cardio regular rate and regular rhythm GI normal to inspection, nondistended, normoactive bowel sounds, non-tender and non-distended Extremity normal capillary refill General Extremity: Negative for edema Skin no rashes or lesions noted General Skin Exam: no breakdown Psych affect normal Appearance: appropriate Weight / BMI Weight Weight: 87.453 kg Body Mass Index (BMI) 31.1 ABG / Lab / Microbiology Data 08/26/24 05:22 08/20/24 05:20 Laboratory: Laboratory Results - last 24 hr 08/25/24 21:35: POC Glucose 112 H 08/26/24 05:22: Hgb 8.3 L, Hct 26.7 L 08/26/24 06:12: POC Glucose 153 H 08/26/24 11:32: POC Glucose 131 H 08/26/24 16:25: POC Glucose 143 H Microbiology: Microbiology 08/23/24 09:45 Nasal Secretion SARS-CoV-2 Antigen (Rapid) - Final 08/20/24 07:45 Stool Stool Occult Blood (ALIYAH) - Final Occult Blood Positive D/C Instructions Discharge Diet: No restrictions Discharge Activity: Return to Normal Activity, May Shower and Use Walker Weight Bearing Status: Weight bearing as tolerated Call your doctor if you observe: Fever of 101 or Higher, Inability to urinate, Inability to have a bowel movement, Shortness of breath, Dizziness, Fainting spells, Swelling in the ankles, Chest pain and Uncontrolled pain DC O2, CPAP, BIPAP Needs Home O2 Discharge instructions: No DC home with Oxygen: No Additional Instructions: Discharge home with 08/27/2024, [facility] PT/OT/SN. Please Follow Up With: Miya MEDINA When: As scheduled. Meaningful Use Info Meaningful Use Meaningful Use Diagnoses (Choose all that apply): None applicable Ischemic Stroke Statin Dosing Therapy Reference: STATIN DOSE THERAPY REFERENCE: * Patients > 75 years receive moderate or high dose statin therapy. * Patients 75 years or YOUNGER should receive HIGH intensity statin dose unless contraindicated. You will be required to document reason for non-treatment if statin daily dose does not meet guidelines. HIGH DOSE STATIN THERAPY DAILY Atorvastatin > than or = to 40 mg Rosuvastatin > than or = to 20 mg Amlodipine + Atorvastatin > than or = to 2.5/40 mg Ezetimibe + Simvastatin 10/80 mg Simvastatin 80mg Discharge Plan Admission Admit Date/Time: 08/19/24 13:50 Primary Reason for Your Visit: Debility. Attending Provider: Ra Mccracken Chi Primary Care Provider: Luther Torre Instructions Additional Instructions / Restrictions: Discharge home with 08/27/2024, [facility] PT/OT/SN. Discharge Orders/Prescriptions Prescriptions: New acetaminophen 500 mg Tablet 1,000 mg PO TID Qty: 0 0RF aspirin 81 mg Tablet,Delayed Release (Dr/Ec) 81 mg PO BIDCM 18 Days Qty: 0 0RF sucralfate 1 gram Tablet 1 g PO TID@0700,1100,1600 30 Days Qty: 90 0RF sennosides-docusate sodium [Stimulant Laxative Plus] 8.6-50 mg Tablet 2 tab PO BID 30 Days Qty: 120 0RF tramadol 50 mg Tablet 50 mg PO Q6H PRN PRN (Reason: Pain Score 1-5 Or Pre Pt/Ot) 7 Days Qty: 28 0RF doxycycline monohydrate 100 mg Capsule 100 mg PO BID 22 Days Qty: 44 0RF pantoprazole 40 mg Tablet,Delayed Release (Dr/Ec) 40 mg PO BID 30 Days Qty: 60 0RF oxycodone 5 mg Tablet 5 mg PO Q4H PRN PRN (Reason: Pain Score 6-10 Or Pre Pt/Ot) 7 Days Qty: 42 0RF Continued cholecalciferol (vitamin D3) 2,000 unit capsule 2,000 unit PO DAILY nystatin-triamcinolone 100,000-0.1 unit/g-% cream 1 applic topical BID Humalog Mix 50-50 KwikPen 100 unit/mL (50-50) insulin pen 25 unit subcut TID Rx Instructions: before meals amlodipine 10 mg tablet 5 mg PO QHS Gemtesa 75 mg tablet 75 mg PO QDAY Adult 50 Plus Probiotic 4 billion cell capsule 4,000 mmu cells PO DAILY Rx Instructions: administer with a meal cyanocobalamin (vitamin B-12) 1,000 MCG capsule 2,000 mcg PO DAILY omega-3 fatty acids-fish oil 1 EACH capsule 1 ea PO DAILY methenamine hippurate 1 gram Tablet 1 g PO BID 30 Days Qty: 60 0RF lisinopril 40 mg Tablet 40 mg PO DAILY Qty: 0 0RF calcium carbonate 600 mg calcium (1,500 mg) tablet 1,200 mg PO DAILY folic acid 1 mg tablet 1 mg PO DAILY Qty: 90 2RF ferrous sulfate 325 mg (65 mg iron) tablet 325 mg PO DAILY Qty: 90 2RF Discontinued Prilosec OTC 20 mg tablet,delayed release (DR/EC) 20 mg PO DAILY PRN (Reason: Heartburn) estradiol [Estrace] 0.01 % (0.1 mg/gram) cream 1 appful vaginal MOWEFR d-mannose 500 mg Capsule 2,100 mg PO BID doxycycline monohydrate 100 mg Capsule 100 mg PO BID 30 Days Qty: 60 1RF acetaminophen 500 mg Tablet 1,000 mg PO TID 14 Days Qty: 84 0RF Rx Instructions: Do not take more than 3000 mg Tylenol in a 24-hour period. oxycodone 5 mg Tablet 5 - 10 mg PO Q4H PRN PRN (Reason: Pain Score 4-10) 7 Days Qty: 42 0RF sennosides-docusate sodium [Stimulant Laxative Plus] 8.6-50 mg Tablet 2 tab PO BID 2 Days Qty: 8 0RF Rx Instructions: Take until first bowel movement, then as needed Xarelto 10 mg Tablet 10 mg PO DAILY@0600 Qty: 0 0RF Rx Instructions: Continue Xarelto 10 mg once daily for 2 weeks postoperatively for DVT prophylaxis. After 2 weeks then begin aspirin 81 mg twice daily for an additional 2 weeks No Action (DME) FreeStyle Precision Esvin Strips Strip See Rx Instructions .ROUTE .MEDSUPPLY Qty: 100 6RF Rx Instructions: 3x/day (DME) Handicap Placard See Rx Instructions .ROUTE .MEDSUPPLY Qty: 1 0RF Rx Instructions: As directed, length of time 3 years (DME) pen needle, diabetic [BD Ultra-Fine Short Pen Needle] 31 gauge x 5/16 needle See Rx Instructions .Route Qty: 300 3RF Rx Instructions: tid (DME) FreeStyle Shani 2 Sensor Kit See Rx Instructions .Route Qty: 1 0RF Rx Instructions: As directed Referrals / Follow Up: Luther Torre MD [Primary Care Provider] - James Gagnon DO [Med Staff - Active Staff] - (Follow-up for repeat upper endoscopy) Disposition Disposition (needs filled in before D/C Order can be placed): Home Health Service
[2024-08-26 20:00] VITALS: PULSE 68; RESP 18; O2SAT 95
[2024-08-26 22:16] LABS: Bedside Glucose 131 mg/dL (74-106)
[2024-08-26] MEDS: amLODIPine 5 MG Tablet PO (22:27)
[2024-08-27] MEDS: Rivaroxaban 10 MG Tablet PO (06:15)
[2024-08-27] MEDS: Acetaminophen 500 MG Tablet 1000 MG PO (06:15)
[2024-08-27] MEDS: Sucralfate 1 GM Tablet PO (06:15)
[2024-08-27 06:40] VITALS: PULSE 88; RESP 18; O2SAT 97
[2024-08-27 06:49] LABS: Bedside Glucose 159 mg/dL (74-106)
[2024-08-27 08:05] LABS: Absolute Lymphocyte Count 2.43 X10^3/uL (0.83-4.51); Basophil# 0.02 X10^3/uL; Basophil% 0.2 % (0-1); Eosinophil# 0.19 X10^3/uL; Eosinophils% 2.3 % (0-5); Hematocrit 27.3 % (37-47); Hemoglobin 8.5 g/dL (12.0-15.0); Lymphocyte # 2.43 X10^3/ul (0.83-4.51); Lymphocyte % 29.2 % (19-41); Mean Corp Hgb Conc 31.1 g/dL (32-36); Mean Corpuscular Hgb 27.7 pg (27.0-32.0); Mean Corpuscular Volume 88.9 fL (81-99); Mean Platelet Vol. 9.9 fl (6.2-12.0); Monocyte# 0.66 X10^3/uL; Monocyte% 7.9 % (0-10); NRBC Flagged by Analyzer 0 % (0-5); Neutrophil # 4.95 X10^3/uL (2.7-7.7); Neutrophil % 59.6 % (47-70); Platelet Count 373 K/mm3 (150-450); RBC Distribution Width CV 15.5 % (11.6-14.6); RBC Distribution Width SD 48.8 fl (35.1-43.9); Red Blood Count 3.07 M/mm3 (4.2-5.4); White Blood Count 8.3 K/mm3 (4.4-11.0)
[2024-08-27 08:29] LABS: Anion Gap 6 (5-15); BUN 18 mg/dL (7-18); BUN/Creat Ratio 24.2 RATIO (10-20); Calcium,Total 9.1 mg/dL (8.5-10.1); Chloride 107 mmol/L (98-107); Creatinine, Serum 0.74 mg/dL (0.55-1.02); EST Glomerular Filtration Rate 80 mL/min (>60); Est Glom Filt Rate - Afr Amer 97 mL/min (>60); Estimated Creatinine Clearance 63.52 ml/min; Glucose 153 mg/dL (74-106); Potassium 3.4 mmol/L (3.5-5.1); Sodium Level 139 mmol/L (136-145)
[2024-08-27] MEDS: Lactobacillis Acidophilus 1 CAP PO (08:38)
[2024-08-27] MEDS: Pantoprazole Sodium 40 MG Tablet PO (08:39)
[2024-08-27] MEDS: Lisinopril 40 MG Tablet PO (08:39)
[2024-08-27] MEDS: Doxycycline 100 MG CAPSULE PO (08:39)
[2024-08-27] MEDS: Omega-3 Acid Ethyl Esters 1 GM Capsule PO (08:39)
[2024-08-27] MEDS: Ferrous Sulfate 325 MG Tablet PO (08:39)
[2024-08-27] MEDS: Methenamine Hippurate 1 GM Tablet PO (08:39)
[2024-08-27] MEDS: Vibegron 75 MG TABLET PO (08:39)
[2024-08-27] MEDS: Calcium Carbonate 500 MG Tablet 1000 MG PO (08:39)
[2024-08-27] MEDS: Insulin Lispro 100 UNIT/ML INSULN.PEN 15 UNIT SC (08:39)
[2024-08-27] MEDS: Folic Acid 1 MG Tablet PO (08:39)
--- NOTE | 2024-08-27 08:39 | NURSING ---
Csw Note; MDS for 08/26/2024 Complete
[2024-08-27] MEDS: Nystatin/Triamcin Cream Tube 1 APPLIC TOPICAL (08:40)
[2024-08-27] MEDS: Cyanocobalamin 500 MCG Tablet 2000 MCG PO (08:40)
[2024-08-27] MEDS: Cholecalciferol (VIT D3) 25 MCG TABLET (1,000 UNITS) 50 MCG PO (08:40)
[2024-08-27] MEDS: oxyCODONE 5 MG Tablet PO (08:41)
[2024-08-27 10:09] VITALS: BP 161/76; PULSE 97; RESP 16; TEMP 36.7; O2SAT 98
--- NOTE | 2024-08-30 13:18 | MDS.RN ---
Information for the MDS was obtained from review of the clinical record, interview of resident, staff, and direct observation of resident?s care.
== END 2024-08-27 11:10 | disposition home health service (06) | DRG 949 ==
PROVIDERS: Admitting Provider Family Medicine Geriatric Medicine; PCP Internal Medicine; Visit Provider Family Medicine Geriatric Medicine
DX: T84.54XD Infection and inflammatory reaction due to internal left knee prosthesis, subsequent encounter (principal); K25.4 Chronic or unspecified gastric ulcer with hemorrhage; K26.9 Duodenal ulcer, unspecified as acute or chronic, without hemorrhage or perforation; E11.39 Type 2 diabetes mellitus with other diabetic ophthalmic complication; D50.9 Iron deficiency anemia, unspecified; B35.4 Tinea corporis; I10 Essential (primary) hypertension; E11.42 Type 2 diabetes mellitus with diabetic polyneuropathy; E53.8 Deficiency of other specified B group vitamins; K21.9 Gastro-esophageal reflux disease without esophagitis; E78.00 Pure hypercholesterolemia, unspecified; Z79.4 Long term (current) use of insulin; E55.9 Vitamin D deficiency, unspecified; Z79.01 Long term (current) use of anticoagulants; H40.9 Unspecified glaucoma; N32.81 Overactive bladder; Y79.2 Prosthetic and other implants, materials and accessory orthopedic devices associated with adverse incidents; Z79.899 Other long term (current) drug therapy
CPT/HCPCS: 36415; 80048; 82274; 82306; 82607; 82962; 85014; 85018; 85025; 87811; 92523; 97110; 97116; 97162; 97166; 97530; 97535; 97802

== ENCOUNTER 2024-08-23 16:39 | Day surgery (SDC) | payer MEDICARE, OTHER, SELFPAY ==
[2024-08-23] VITALS (8 sets, daily range): BP systolic 110–134; BP diastolic 49–79; PULSE 62–105; RESP 16; TEMP 36.1–37; O2SAT 95–97
--- NOTE | 2024-08-23 | IMM_PTH ---
PATIENT: ARSALAN SPENCE FEBRUARY LOC: EN U#:[id number] AGE/SX: 79/F ROOM: RE08/23/[address]: Dr. James Gagnon DO : 1945 BED: DIS: 08/23/2024 SPEC #: [id number] RECD: 08/24/24 09:53 STATUS: MARYJO REQ #: [id number] CHATA: 08/23/24 00:[address]: James Gagnon DEPT: IMMUNOHISTOCHEMISTRY RECD BY: Melanie Serra ENTERED: 08/24/24 09:54 SP TYPE: IMMUNO OTHR DR: Dr. Luther Torre MD Tissues: Gastric mucous membrane Procedures: H Pylori (initial) PHYSICIAN & INSTITUTION [place] [address] SPECIMEN INFORMATION: Tissue Source: B. Gastric ulcer Clinical Info: Iron deficiency anemia Specimen Number: [id number] CPT code: 68824 METHODOLOGY: Deparaffinized sections of prefer/formalin-fixed tissue or PAP/DQ stained slides are incubated with monoclonal/polyclonal antibodies/oligonucleotide probes. Localization is made via biotin free immunoperoxidase method. Appropriate controls are performed and reacted as expected. Results on target cell population are indicated in the following table: RESULTS: ANTIBODY / CLONE RESULT Block B H Pylori (polyclonal) negative These tests were developed and their performance characteristics determined by [facility]. They may not have been cleared or approved by the U.S. Food and Drug Administration. The FDA has determined that such clearance or approval is not necessary. The above immunohistochemical/dualISH markers are ordered and reviewed by the Pathologist. INTERPRETATION: B. Gastric ulcer, biopsy: Negative for Helicobacter pylori organisms. 08/25/2024
--- NOTE | 2024-08-23 16:56 | PCM.PRE.AN2 ---
ASA Classification* ASA Classification ASA Classification: 2 Assessment & Plan Anesthesia* Anesthesia Assessment Anesthesia Assessment: Discussed sedation and/or anesthesia options, risks, benefits, and alternatives with patient/parents/legal guardian/POA. Questions invited. The patient/parents/legal guardian/POA seems to understand and agrees to proceed with anesthesia plan. Reviewed the physical assessment, medical history, allergy history and patient home medications list prior to surgery/procedure/anesthetic and documented any changes. Performed airway and anesthesia risk assessments. Anesthesia Type Anesthesia Type: MAC History Source History Obtained from:: Patient and Chart Anesthesia Focused Assessment* Temperature: 98.4 F Pulse Rate: 105 Blood Pressure: 123/79 Respiratory Rate: 16 Pulse Ox: 97 Oxygen Delivery Method: Room Air Airway Assessment Mouth opens: >3 cm Mallampati Score: III Teeth Condition: Intact Neck Range of motion (ROM): Limited ROM (Slight decrease in extension) Focused Labs Anesthesia Preop lab: CBC WBC 11.3 K/mm3 (4.4-11.0) H 08/20/24 05:20 RBC 2.93 M/mm3 (4.2-5.4) L 08/20/24 05:20 Hgb 8.0 g/dL (12.0-15.0) L 08/23/24 05:19 Hct 25.8 % (37-47) L 08/23/24 05:19 Plt Count 244 K/mm3 (150-450) 08/20/24 05:20 CHEMISTRY Potassium 3.6 mmol/L (3.5-5.1) 08/20/24 05:20 Sodium 138 mmol/L (136-145) 08/20/24 05:20 Magnesium 2.0 mg/dL (1.6-2.6) 08/09/24 15:39 BUN 27 mg/dL (7-18) H 08/20/24 05:20 Creatinine 0.94 mg/dL (0.55-1.02) 08/20/24 05:20 Glucose 182 mg/dL (74-106) H 08/20/24 05:20 POC Glucose 188 mg/dL (74-106) H 08/23/24 11:13 TSH 0.59 uIU/mL (0.358-3.74) 03/31/23 10:40 COAG Pre-Assessment Diagnosis/Proposed Procedure Planned Operative Procedure(s): Esophagogastroduodenoscopy. Anesthesia History Anesthesia History - channel account manager: Anesthesia History - channel account manager Hx Hospitalization Yes: KNEE INFECTION 05/202408/10/24 15:31 Any Problems With Anesthesia No 08/10/24 15:31 Cholinesterase deficiency No 08/10/24 15:31 You/Your Family Experience No 08/10/24 15:31 fever (hyperthermia) with Relationship Recent Exposure to Contagious No 08/16/24 09:29 Disease Does patient have nerve No 08/10/24 15:31 stimulator Patient instructed to have device shut off --Does patient have Pacemaker No 08/23/24 16:49 or ICD? When Was Last Pacemaker Check QUESTION #4 FULL TEXT: You/Your Family Experience fever (hyperthermia) with Anesthesia Last Oral Intake Last Oral intake: Last Oral Intake NPO since 00:00 08/23/24 16:49 Meds taken in AM with sips of Yes 08/23/24 16:49 water? Meds patient instructed to Tylenol 1319 08/23/24 16:49 take am of surgery Oxy 0006 Ultram 0900 Any additional information?: Yes NPO since: 15:30 (Patient had 2 ounces of orange juice at 330.) PONV PONV - channel account manager: PONV - channel account manager Female HX of Motion Sickness HX of N/V After Surgery Non-Smoker Duration of Surgery greater than 60 minutes Number of Risk Factors PONV Score Height & Weight Height & Weight: Anesthesia: Height & Weight Height 5 ft 6 in 08/20/24 12:37 Weight: 88.451 kg 08/23/24 16:49 Respiratory Assessment Respiratory Assessment - channel account manager: Respiratory Tract Infection Hx - channel account manager Hx Respiratory Tract Infection No 08/10/24 15:31 STOP Sleep Apnea STOP Sleep Apnea - channel account manager: STOP Sleep Apnea - channel account manager Hx Hypertension Yes 08/20/24 12:10 Hx Sleep Apnea No 08/19/24 14:11 CPAP No 08/16/24 16:42 BIPAP Do you snore loudly (louder than talking or can be heard Do you often feel tired/ fatigued/ sleepy during daytime? Has anyone observed you stop breathing during sleep? STOP Results QUESTION #5 FULL TEXT : Do you snore loudly (louder than talking or can be heard through closed doors)? Tobacco Use History Tobacco Use History - channel account manager: Tobacco Use History - channel account manager Tobacco Use Smoking Status Never smoker 08/19/24 14:11 Hx Tobacco Use No 08/19/24 14:11 Years Smoking Packs Smoked per Day Smoking Cessation Date was within the last 15 years Hx Smoking Cessation Date Hx Smoking Cessation Counseling Hematologic Medial History Hematologic Hx - channel account manager: Hematologic Medical Hx - digital experience manager Hx of Blood Transfusion Hx of Transfusion in last 3 Months Date of Last Transfusion (if within last 3 months) Ever experience any problems with transfusion(s)? Specify any problems Hx of Preganancy in last 3 Months Nurse Filling Out Transfusion & Questions: Date: Time: Patient unable to answer at this time (ie. confused, unrespo /Reproduction History /Reproductive History - channel account manager: /Reproductive Hx- channel account manager Hx Now Gestational Age (in weeks): EDC: Hx Hx Para Hx Section SAB No 08/10/24 15:31 PFS Medical History History of revision of total replacement of left knee joint Wears hearing aid Wears glasses Walker as ambulation aid Low iron High cholesterol Dietary restriction Gastric reflux History of echocardiogram History of stress test Cardiology follow-up encounter History of ESBL E. coli infection Irregular heart beat History of TIA (transient ischemic attack) and stroke Constipation Vaginal irritation Furunculosis Renal stone Insulin dependent diabetes mellitus Bladder disease Back pain Difficulty swallowing History of diverticulitis History of pain when walking History of edema History of irregular heartbeat DDD (degenerative disc disease), lumbar Osteoarthritis Chronic back pain Balance disorder Lumbar radiculopathy Neuropathy Obesity GERD (gastroesophageal reflux disease) Osteoporosis Hearing loss Chronic UTI (urinary tract infection) Glaucoma Essential (primary) hypertension Home Medications ?Medication ?Instructions ?Recorded ?Last Taken ?Type cholecalciferol (vitamin D3) 50 2,000 unit PO DAILY supplement 07/20/19 08/18/24 10:10 History mcg (2,000 unit) capsule omeprazole magnesium 20 mg 20 mg PO DAILY PRN Heartburn 07/20/19 08/17/24 History tablet,delayed release (Prilosec OTC) cyanocobalamin (vitamin B-12) 2,000 mcg PO DAILY supplement 06/14/20 08/18/24 10:10 History 1,000 mcg capsule omega-3 fatty acids-fish oil 340 1 ea PO DAILY SUPPLEMENT 08/30/20 08/12/24 History mg-1,000 mg capsule blood sugar diagnostic (FreeStyle #100 ea 07/16/21 Unknown Rx Precision Esvin Strips) d-mannose 500 mg capsule 2,100 mg PO BID SUPPLEMENT 03/29/22 08/12/24 History estradiol 0.01% (0.1 mg/gram) 1 appful vaginal MOWEFR HORMONE 04/10/22 08/13/24 History vaginal cream (Estrace) flash glucose sensor (FreeStyle #1 ea 01/23/23 Unknown Rx Shani 2 Sensor kit) Handicap Placard #1 ea 12/24/23 Unknown Rx insulin lispro protamine-lispro 25 unit subcut TID Diabetes 01/29/24 08/15/24 History 100 unit/mL (50-50) subcutaneous pen (Humalog Mix 50-50 KwikPen) folic acid 1 mg tablet 1 mg PO DAILY supplement #90 tabs 02/11/24 08/18/24 10:05 Rx ferrous sulfate 325 mg (65 mg 325 mg PO DAILY supplement #90 tabs 04/16/24 08/18/24 10:05 Rx iron) tablet methenamine hippurate 1 gram tablet 1 g PO BID URINE PROTECTION 30 06/01/24 08/18/24 22:55 Rx days #60 tabs lisinopril 40 mg tablet 40 mg PO DAILY BP #0 tabs 06/09/24 08/18/24 05:45 Rx amlodipine 10 mg tablet 5 mg PO QHS BP 07/21/24 08/18/24 22:50 History lactobacillus combination no.9 4 4,000 mmu cells PO DAILY SUPPLEMENT 07/21/24 08/18/24 10:10 History billion cell capsule (Adult 50 Plus Probiotic) vibegron 75 mg tablet (Gemtesa) 75 mg PO QDAY OAB 07/21/24 08/18/24 10:05 History BD Ultra-Fine Short Pen Needle 31 #300 ea 08/02/24 Unknown Rx gauge x 5/16 (pen needle, diabetic) nystatin-triamcinolone 100,000 1 applic topical BID SKIN 08/02/24 08/18/24 22:50 History unit/g-0.1 % topical cream calcium carbonate 1,200 mg PO DAILY SUPPLEMENT 08/10/24 08/18/24 10:04 History doxycycline monohydrate 100 mg 100 mg PO BID Infection 30 days 08/17/24 Unknown Rx capsule #60 caps acetaminophen 500 mg tablet 1,000 mg (2 x 500 mg) PO TID Pain 08/19/24 08/23/24 Rx 14 days #84 tabs oxycodone 5 mg tablet 5 - 10 mg (1 - 2 x 5 mg) PO Q4H 08/19/24 08/19/24 06:55 Rx PRN PRN Pain Score 4-10 7 days #42 tabs rivaroxaban 10 mg tablet (Xarelto) 10 mg PO DAILY@0600 blood thinner 08/19/24 08/19/24 06:50 Rx #0 tabs sennosides 8.6 mg-docusate sodium 2 tab PO BID constipation 2 days 08/19/24 08/18/24 22:50 Rx 50 mg tablet (Stimulant Laxative #8 tabs Plus) Allergy/AdvReac Type Severity Reaction Status Date / Time ciprofloxacin Allergy Severe impairment Verified 08/23/24 16:53 of motor skills hydrochlorothiazide Allergy Mild other Verified 08/23/24 16:53 gatifloxacin (From Tequin) Allergy Unknown Other Verified 08/23/24 16:53 lidocaine (From Xylocaine) Allergy Unknown Other Verified 08/23/24 16:53 Sulfa (Sulfonamide Allergy Unknown unknown Verified 08/23/24 16:53 Antibiotics) metformin AdvReac Intermediate loose Verified 08/23/24 16:53 stool, bladder infections sitagliptin (From Janumet) AdvReac Intermediate loose stool Verified 08/23/24 16:53 batroxobin AdvReac Unknown unknown Verified 08/23/24 16:53 exenatide (From Byetta) AdvReac Unknown unknown Verified 08/23/24 16:53 nizatidine (From Axid) AdvReac Unknown unknown Verified 08/23/24 16:53 sertraline (From Zoloft) AdvReac Unknown unknown Verified 08/23/24 16:53 simvastatin (From Zocor) AdvReac Unknown unknown Verified 08/23/24 16:53 trandolapril (From Mavik) AdvReac Unknown unknown Verified 08/23/24 16:53 betaxolol AdvReac Other Verified 08/23/24 16:53 doxazosin AdvReac Other Verified 08/23/24 16:53 olmesartan (From Benicar) AdvReac Diarrhea Verified 08/23/24 16:53 Family History Mother CVA (cerebral vascular accident) Aunt Breast cancer Surgical History Hx of total knee arthroplasty Hx of total knee arthroplasty S/P total hip arthroplasty S/P hip hemiarthroplasty History of total left hip replacement Hx of arthroscopic knee surgery Hx of eye surgery Hx of bilateral cataract extraction Hx of total knee arthroplasty Hx of knee surgery Hx of total knee arthroplasty H/O foot surgery H/O: hysterectomy History of cataract surgery H/O tubal ligation History of cholecystectomy History of tonsillectomy Social History household members: spouse Smoking Status: Never smoker alcohol intake: current alcohol intake frequency: a few times a week substance use type: does not use diet: diabetic well-balanced diet: daily or most days what type of physical activity do you participate in: walking frequency: 1-2 times per week Review of Systems (Anesthesia) ROS Narrative System reviewed and no additional complaints, except as documented.
--- NOTE | 2024-08-23 17:00 | EGD_PTH ---
PATIENT: ARSALAN SPENCE FEBRUARY LOC: EN U#:[id number] AGE/SX: 79/F ROOM: RE08/23/[address]: Dr. James Gagnon DO : 1945 BED: DIS: 08/23/2024 SPEC #: [id number] RECD: 08/24/24 07:59 STATUS: MARYJO [place] #: [id number] CHATA: 08/23/24 17:[address]: James Gagnon DEPT: SURGICAL PATHOLOGY RECD BY: Melanie Serra ENTERED: 08/24/24 09:30 SP TYPE: EGD BIOPSY JONATHAN DR: Dr. Luther Torre MD Tissues: A - Duodenum, NOS B - Gastric mucous membrane Procedures: Surgery Specimen Level IV HEADER OPERATION: EGD, biopsy, electrohemostasis PRE-OP DIAGNOSIS: Iron deficiency anemia TISSUE SUBMITTED: A- Duodenal ulcer biopsy, B- Gastric ulcer biopsy MICROSCOPIC DIAGNOSIS A. Duodenal ulcer, biopsy: Fragments of duodenal mucosa, no pathologic diagnosis. B. Gastric ulcer, biopsy: Mild gastritis. See microscopic description and comment. CHELITATod 08/25/2024 COMMENT B. The results of immunohistochemistry for Helicobacter pylori will be reported separately ([id number]). MICROSCOPIC DESCRIPTION Slides are reviewed. B. The specimen shows fragments of gastric mucosa with chronic inflammatory cell infiltrates in the lamina propria consisting of lymphocytes and plasma cells, consistent with mild chronic gastritis. GROSS DESCRIPTION A. Received in fixative is one container labeled with the patient's name and designated Duodenal ulcer biopsy. The specimen consists of two irregular fragments of light jones soft tissue that in aggregate measure 0.6 x 0.3 x 0.1 cm. The specimen is totally submitted in one cassette. B. Received in fixative is one container labeled with the patient's name and designated Gastric ulcer biopsy. The specimen consists of multiple irregular fragments of light jones soft tissue that in aggregate measure 1.5 x 0.2 x 0.1 cm. The specimen is totally submitted in one cassette. CHELITA. 08/24/2024 TC: CPT:[id number]
--- NOTE | 2024-08-23 17:07 | PCM.HP.STD ---
HPI - General General Date of Admission: 08/23/24 Date of Service: 08/23/24 Chief Complaint: Anemia HPI Narrative ARSALAN SPENCE, is a 79 F who presents with worsening left knee pain. She has a h/o recurrent uti, dx with L knee PJI, taken to OR 04/27/[address] [place] [address] Casillas for I&D and spacer placement. Her Surg cx were negative. She was given 6 week course iv vanc and ceftriaxone, completed 06/08/24. She was started on methenamine for uti prophylaxis. She is at no uti since starting that, but does have some irritation from the med chronically in bladder which resolves with urination. Taken back to OR 08/16/[address] Casillas for 2nd stage replacement. Feeling ok this AM, pain controlled, on po doxy. I was consulted to see her due to worsening hemoglobin a fecal positive stools in the setting of a anticoagulation. [facility] Medical History History of revision of total replacement of left knee joint Wears hearing aid Wears glasses Walker as ambulation aid Low iron High cholesterol Dietary restriction Gastric reflux History of echocardiogram History of stress test Cardiology follow-up encounter History of ESBL E. coli infection Irregular heart beat History of TIA (transient ischemic attack) and stroke Constipation Vaginal irritation Furunculosis Renal stone Insulin dependent diabetes mellitus Bladder disease Back pain Difficulty swallowing History of diverticulitis History of pain when walking History of edema History of irregular heartbeat DDD (degenerative disc disease), lumbar Osteoarthritis Chronic back pain Balance disorder Lumbar radiculopathy Neuropathy Obesity GERD (gastroesophageal reflux disease) Osteoporosis Hearing loss Chronic UTI (urinary tract infection) Glaucoma Essential (primary) hypertension Home Medications ?Medication ?Instructions ?Recorded ?Last Taken ?Type cholecalciferol (vitamin D3) 50 2,000 unit PO DAILY supplement 07/20/19 08/18/24 10:10 History mcg (2,000 unit) capsule omeprazole magnesium 20 mg 20 mg PO DAILY PRN Heartburn 07/20/19 08/17/24 History tablet,delayed release (Prilosec OTC) cyanocobalamin (vitamin B-12) 2,000 mcg PO DAILY supplement 06/14/20 08/18/24 10:10 History 1,000 mcg capsule omega-3 fatty acids-fish oil 340 1 ea PO DAILY SUPPLEMENT 08/30/20 08/12/24 History mg-1,000 mg capsule blood sugar diagnostic (FreeStyle #100 ea 07/16/21 Unknown Rx Precision Esvin Strips) d-mannose 500 mg capsule 2,100 mg PO BID SUPPLEMENT 03/29/22 08/12/24 History estradiol 0.01% (0.1 mg/gram) 1 appful vaginal MOWEFR HORMONE 04/10/22 08/13/24 History vaginal cream (Estrace) flash glucose sensor (FreeStyle #1 ea 01/23/23 Unknown Rx Shani 2 Sensor kit) Handicap Placard #1 ea 12/24/23 Unknown Rx insulin lispro protamine-lispro 25 unit subcut TID Diabetes 01/29/24 08/15/24 History 100 unit/mL (50-50) subcutaneous pen (Humalog Mix 50-50 KwikPen) folic acid 1 mg tablet 1 mg PO DAILY supplement #90 tabs 02/11/24 08/18/24 10:05 Rx ferrous sulfate 325 mg (65 mg 325 mg PO DAILY supplement #90 tabs 04/16/24 08/18/24 10:05 Rx iron) tablet methenamine hippurate 1 gram tablet 1 g PO BID URINE PROTECTION 30 06/01/24 08/18/24 22:55 Rx days #60 tabs lisinopril 40 mg tablet 40 mg PO DAILY BP #0 tabs 06/09/24 08/18/24 05:45 Rx amlodipine 10 mg tablet 5 mg PO QHS BP 07/21/24 08/18/24 22:50 History lactobacillus combination no.9 4 4,000 mmu cells PO DAILY SUPPLEMENT 07/21/24 08/18/24 10:10 History billion cell capsule (Adult 50 Plus Probiotic) vibegron 75 mg tablet (Gemtesa) 75 mg PO QDAY OAB 07/21/24 08/18/24 10:05 History BD Ultra-Fine Short Pen Needle 31 #300 ea 08/02/24 Unknown Rx gauge x 5/16 (pen needle, diabetic) nystatin-triamcinolone 100,000 1 applic topical BID SKIN 08/02/24 08/18/24 22:50 History unit/g-0.1 % topical cream calcium carbonate 1,200 mg PO DAILY SUPPLEMENT 08/10/24 08/18/24 10:04 History doxycycline monohydrate 100 mg 100 mg PO BID Infection 30 days 08/17/24 Unknown Rx capsule #60 caps acetaminophen 500 mg tablet 1,000 mg (2 x 500 mg) PO TID Pain 08/19/24 08/23/24 Rx 14 days #84 tabs oxycodone 5 mg tablet 5 - 10 mg (1 - 2 x 5 mg) PO Q4H 08/19/24 08/19/24 06:55 Rx PRN PRN Pain Score 4-10 7 days #42 tabs rivaroxaban 10 mg tablet (Xarelto) 10 mg PO DAILY@0600 blood thinner 08/19/24 08/19/24 06:50 Rx #0 tabs sennosides 8.6 mg-docusate sodium 2 tab PO BID constipation 2 days 08/19/24 08/18/24 22:50 Rx 50 mg tablet (Stimulant Laxative #8 tabs Plus) Allergy/AdvReac Type Severity Reaction Status Date / Time ciprofloxacin Allergy Severe impairment Verified 08/23/24 16:53 of motor skills hydrochlorothiazide Allergy Mild other Verified 08/23/24 16:53 gatifloxacin (From Tequin) Allergy Unknown Other Verified 08/23/24 16:53 lidocaine (From Xylocaine) Allergy Unknown Other Verified 08/23/24 16:53 Sulfa (Sulfonamide Allergy Unknown unknown Verified 08/23/24 16:53 Antibiotics) metformin AdvReac Intermediate loose Verified 08/23/24 16:53 stool, bladder infections sitagliptin (From Janumet) AdvReac Intermediate loose stool Verified 08/23/24 16:53 batroxobin AdvReac Unknown unknown Verified 08/23/24 16:53 exenatide (From Byetta) AdvReac Unknown unknown Verified 08/23/24 16:53 nizatidine (From Axid) AdvReac Unknown unknown Verified 08/23/24 16:53 sertraline (From Zoloft) AdvReac Unknown unknown Verified 08/23/24 16:53 simvastatin (From Zocor) AdvReac Unknown unknown Verified 08/23/24 16:53 trandolapril (From Mavik) AdvReac Unknown unknown Verified 08/23/24 16:53 betaxolol AdvReac Other Verified 08/23/24 16:53 doxazosin AdvReac Other Verified 08/23/24 16:53 olmesartan (From Benicar) AdvReac Diarrhea Verified 08/23/24 16:53 Family History Mother CVA (cerebral vascular accident) Aunt Breast cancer Surgical History Hx of total knee arthroplasty Hx of total knee arthroplasty S/P total hip arthroplasty S/P hip hemiarthroplasty History of total left hip replacement Hx of arthroscopic knee surgery Hx of eye surgery Hx of bilateral cataract extraction Hx of total knee arthroplasty Hx of knee surgery Hx of total knee arthroplasty H/O foot surgery H/O: hysterectomy History of cataract surgery H/O tubal ligation History of cholecystectomy History of tonsillectomy Social History household members: spouse Smoking Status: Never smoker alcohol intake: current alcohol intake frequency: a few times a week substance use type: does not use diet: diabetic well-balanced diet: daily or most days what type of physical activity do you participate in: walking frequency: 1-2 times per week ROS Constitutional Constitutional: Reports weakness; Denies chills, fever(s) or weight gain ENT HEENT: Denies headache(s), nasal congestion or nasal discharge Cardiovascular Cardiovascular: Denies chest pain or palpitations Respiratory/Chest Respiratory/Chest: Denies cough, excessive phlegm production or shortness of breath with exertion Gastrointestinal Gastrointestinal: Denies abdominal pain, nausea or vomiting Genitourinary Genitourinary: Denies dysuria Musculoskeletal Musculoskeletal: Denies joint pain or joint swelling Integumentary Integumentary: Denies rash or wounds Neurologic Neurologic: Denies focal weakness, numbness or tingling Psychiatric Psychiatric: Denies anxiety, auditory hallucinations, depression, homicidal ideation or suicidal ideation Vital Signs Vital Signs Vital Signs: 08/23/24 16:49 08/23/24 16:58 Temperature 98.4 F 98.4 F Temperature Source Temporal Pulse Rate 105 H 105 H Respiratory Rate 16 16 Blood Pressure 123/79 H 123/79 H Blood Pressure Mean 93 Blood Pressure Source Monitor Blood Pressure Position Semi-Fowlers Blood Pressure Location Right Arm Pulse Ox 97 97 Oxygen Delivery Method Room Air Weight Weight: 195 lb Physical Exam Const alert, oriented x3, no apparent distress and healthy appearing General Appearance: cooperative GI normal to inspection, nondistended, normoactive bowel sounds, soft to palpation, non-tender and non-distended Percussion: normal to percussion Rectal Exam: deferred Assessment & Plan Assessment/Plan (1) Status post revision of total replacement of left knee: PLAN: 79-year-old with h/o recurrent uti, dx with L knee PJI, taken to OR 04/27/[address] [place] [address] Casillas for I&D and spacer placement. Surg cx were negative. She was given 6 week course iv vanc and ceftriaxone, completed 06/08/24. She was started on methenamine for uti prophylaxis. She had no uti since starting that, but does have some irritation from the med chronically in bladder which resolves with urination. Taken back to OR 08/16/[address] Casillas for 2nd stage replacement. She will be continuing po doxy, recommend 30 day supply and ID followup in a month. Will continue methenamine for uti prophylaxis as long as she is able to tolerate it. Her hemoglobin was at 11 and slowly been drifting down to 8. She will undergo an upper endoscopy to evaluate upper GI tract. She was explained alternatives, risk and benefits include not withstanding bleeding, infection, sepsis, perforation, need for charge and . She will have an ASA of 3. (2) Iron deficiency anemia:
--- NOTE | 2024-08-23 17:58 | PCM.POST.ANE ---
Anesthesia: Postop Eval I Current Vital Signs Temperature: 97 F Pulse Rate: 62 Blood Pressure: 116/70 Respiratory Rate: 16 Pulse Ox: 96 Oxygen Delivery Method: Room Air Assessment Airway patent: Yes Spontaneous unlabored respirations: Yes Mental status: Awake and Calm nausea: No Vomiting: No Anesthesia Complication: No Fluid Hydration Crystalloid volume administer (ml): 20 Total IV fluid infused: 20 Progress Note Anesthesia document: Postop Eval 1 completed: Yes
--- NOTE | 2024-08-23 17:59 | POSTOPAN2_ITS ---
Anesthesia Postop Eval I Sum Postop Eval Completion status Anesthesia document: Postop Eval 1 completed: Yes Anesthesia Postop Eval I Summary Anesthesia Postop Eval I Summary: Anesthesia Postop Eval I: Assessment Summary Airway patent Yes 08/23/24 17:59 HOSTESS [email or web address].MDOT Spontaneous unlabored Yes 08/23/24 17:59 HOSTESS HOST.MDOT respirations Mental status Awake,Calm 08/23/24 17:59 HOSTESS HOST.MDOT nausea No 08/23/24 17:59 HOSTESS HOST.MDOT Vomiting No 08/23/24 17:59 HOSTESS HOST.MDOT Anesthesia Postop Eval I: Fluid Summary Crystalloid volume administer 20 08/23/24 17:59 HOSTESS HOST.MDOT (ml) Colloids volume administered ( ml) Blood Product volume administered (ml) Total IV fluid infused 20 08/23/24 17:59 HOSTESS HOST.MDOT Anesthesia Postop Eval I: Summary Notes Anesthesia Complication No 08/23/24 17:59 HOSTESS HOST.MDOT Anesthesia Complication Comment: Post-operative progress note Anesthesia: Postop Eval II Evaluation Mental status: Awake and Calm Pain Level: 0 nausea: No Vomiting: No Complications Anesthesia Complication: No
--- NOTE | 2024-08-23 17:59 | PCM.POSTANE2 ---
Anesthesia Postop Eval I Sum Postop Eval Completion status Anesthesia document: Postop Eval 1 completed: Yes Anesthesia Postop Eval I Summary Anesthesia Postop Eval I Summary: Anesthesia Postop Eval I: Assessment Summary Airway patent Yes 08/23/24 17:59 PANTS [email or web address] Spontaneous unlabored Yes 08/23/24 17:59 PANTS CLOSER.MDOT respirations Mental status Awake,Calm 08/23/24 17:59 PANTS CLOSER.MDOT nausea No 08/23/24 17:59 PANTS CLOSER.MDOT Vomiting No 08/23/24 17:59 PANTS [email or web address].MDOT Anesthesia Postop Eval I: Fluid Summary Crystalloid volume administer 20 08/23/24 17:59 PANTS CLOSER.MDOT (ml) Colloids volume administered ( ml) Blood Product volume administered (ml) Total IV fluid infused 20 08/23/24 17:59 PANTS [email or web address].MDOT Anesthesia Postop Eval I: Summary Notes Anesthesia Complication No 08/23/24 17:59 PANTS [email or web address].MDOT Anesthesia Complication Comment: Post-operative progress note Anesthesia: Postop Eval II Evaluation Mental status: Awake and Calm Pain Level: 0 nausea: No Vomiting: No Complications Anesthesia Complication: No
--- NOTE | 2024-08-23 18:02 | OP.CCLET_ITS ---
08/23/2024 Luther Torre MD [address] [place] [address] [place] [address] Re : Upper GI endoscopy procedure for Reva Warner Dear Dr. Torre This procedure was performed on Friday, August 23, 2024. My impressions and recommendations are as follows: Impressions : - Normal esophagus. - Oozing gastric ulcer with a visible vessel. Treated with a heater probe. Biopsied. - Non-bleeding duodenal ulcers with no stigmata of bleeding. Biopsied. Recommendations : - Return patient to hospital cyr for ongoing care. - Resume regular diet. - Continue present medications. - Await pathology results. - Repeat upper endoscopy. -Protonix 40 mg twice daily -Carafate 1 g 3 times a day My findings are described in the full procedure note, which is enclosed. If I can be of further assistance, please feel free to contact me at . Sincerely, James Gagnon, 08/23/2024 6:02:00 PM This report has been signed electronically.
--- NOTE | 2024-08-23 18:02 | OP.EGD_ITS ---
Patient Name: Reva Warner Procedure Date: 08/23/2024 5:46 PM Date of : 1945 Age: 79 Procedure: Upper GI endoscopy Indications: Iron deficiency anemia Providers: James Gagnon DO Medicines: Monitored Anesthesia Care Patient Profile: This is a 79 year old female. Refer to note in patient chart for documentation of history and physical. Patient has symptoms. Complications: No immediate complications. Procedure: Pre-Anesthesia Assessment: - Prior to the procedure, a History and Physical was performed, and patient medications and allergies were reviewed. The patient is competent. The risks and benefits of the procedure and the sedation options and risks were discussed with the patient. All questions were answered and informed consent was obtained. Patient identification and proposed procedure were verified by the physician in the pre-procedure area. Mental Status Examination: alert and oriented. Airway Examination: normal oropharyngeal airway and neck mobility. Respiratory Examination: clear to auscultation. CV Examination: normal. Prophylactic Antibiotics: The patient does not require prophylactic antibiotics. Prior Anticoagulants: The patient has taken no anticoagulant or antiplatelet agents except for NSAID medication. ASA Grade Assessment: II - A patient with mild systemic disease. After reviewing the risks and benefits, the patient was deemed in satisfactory condition to undergo the procedure. The anesthesia plan was to use monitored anesthesia care (MAC). Immediately prior to administration of medications, the patient was re-assessed for adequacy to receive sedatives. The heart rate, respiratory rate, oxygen saturations, blood pressure, adequacy of pulmonary ventilation, and response to care were monitored throughout the procedure. The physical status of the patient was re-assessed after the procedure. After obtaining informed consent, the endoscope was passed under direct vision. Throughout the procedure, the patient's blood pressure, pulse, and oxygen saturations were monitored continuously. The Endoscope was introduced through the mouth, and advanced to the second part of duodenum. The upper GI endoscopy was accomplished without difficulty. The patient tolerated the procedure well. Scope In: 5:47:29 PM Scope Out: 5:55:40 PM Total Procedure Duration Time 0 hours 8 minutes 11 seconds Findings: The examined esophagus was normal. One oozing cratered gastric ulcer with a visible vessel was found on the lesser curvature of the stomach. The lesion was 20 mm in largest dimension. Coagulation for hemostasis using heater probe was successful. Estimated blood loss was minimal. Biopsies were taken with a cold forceps for histology. Verification of patient identification for the specimen was done. Estimated blood loss was minimal. Biopsies were taken with a cold forceps for Helicobacter pylori testing. Verification of patient identification for the specimen was done. Estimated blood loss was minimal. Many non-bleeding linear duodenal ulcers with no stigmata of bleeding were found in the duodenal bulb, in the first portion of the duodenum and in the second portion of the duodenum. The largest lesion was 4 mm in largest dimension. Biopsies were taken with a cold forceps for histology. Biopsies were taken with a cold forceps for histology. Verification of patient identification for the specimen was done. Estimated blood loss was minimal. Multiple 5 mm hyperplastic polyps with no bleeding and no stigmata of recent bleeding were found in the gastric body. Impression: - Normal esophagus. - Oozing gastric ulcer with a visible vessel. Treated with a heater probe. Biopsied. - Non-bleeding duodenal ulcers with no stigmata of bleeding. Biopsied. Recommendation: - Return patient to hospital cyr for ongoing care. - Resume regular diet. - Continue present medications. - Await pathology results. - Repeat upper endoscopy. -Protonix 40 mg twice daily -Carafate 1 g 3 times a day Procedure Code(s): --- Professional --- 08417, 59, Esophagogastroduodenoscopy, flexible, transoral; with control of bleeding, any method 76132, 51, Esophagogastroduodenoscopy, flexible, transoral; with biopsy, single or multiple CPT copyright 2021 [employer]. All rights reserved. The codes documented in this report are preliminary and upon catering coordinator review may be revised to meet current compliance requirements. James Gagnon DO 08/23/2024 6:02:00 PM This report has been signed electronically. Number of Addenda: 0 Note Initiated On: 08/23/2024 5:46 PM
== END 2024-08-23 18:41 | disposition home or self-care (01) ==
LOC: EN 16:41 → AC 16:42
PROVIDERS: PCP Internal Medicine; Referring Provider Internal Medicine; Visit Provider Internal Medicine Gastroenterology
PROC: 0DJ08ZZ Inspection of Upper Intestinal Tract, Via Natural or Artificial Opening Endoscopic (ICD-10-PCS; CPT 43235; principal; 2024-08-23 16:55)
DX: K29.70 Gastritis, unspecified, without bleeding (principal); Z79.4 Long term (current) use of insulin; E11.40 Type 2 diabetes mellitus with diabetic neuropathy, unspecified; K25.9 Gastric ulcer, unspecified as acute or chronic, without hemorrhage or perforation; Z79.84 Long term (current) use of oral hypoglycemic drugs; E78.00 Pure hypercholesterolemia, unspecified; Z96.652 Presence of left artificial knee joint; I10 Essential (primary) hypertension; Z79.85 Long-term (current) use of injectable non-insulin antidiabetic drugs; D50.9 Iron deficiency anemia, unspecified; K26.9 Duodenal ulcer, unspecified as acute or chronic, without hemorrhage or perforation; Z79.01 Long term (current) use of anticoagulants; K21.9 Gastro-esophageal reflux disease without esophagitis; Z79.899 Other long term (current) drug therapy
CPT/HCPCS: 43255; 43239; 88305; 88342; A4216

== ENCOUNTER → 2024-09-10 | Outpatient (CLI) | payer MEDICARE, OTHER, SELFPAY ==
[2024-09-10 14:44] LABS: Absolute Lymphocyte Count 2.64 X10^3/uL (0.83-4.51); Absolute Neutrophil Count 7.3 X10^3/uL (2.0-7.7); Basophil# 0.05 X10^3/uL; Basophil% 0.5 % (0-1); Eosinophil# 0.13 X10^3/uL; Eosinophils% 1.2 % (0-5); Hematocrit 31.9 % (37-47); Hemoglobin 9.5 g/dL (12.0-15.0); Lymphocyte # 2.64 X10^3/ul (0.83-4.51); Lymphocyte % 23.8 % (19-41); Mean Corp Hgb Conc 29.8 g/dL (32-36); Mean Corpuscular Hgb 26.7 pg (27.0-32.0); Mean Corpuscular Volume 89.6 fL (81-99); Mean Platelet Vol. 9.3 fl (6.2-12.0); Monocyte# 0.94 X10^3/uL; Monocyte% 8.5 % (0-10); NRBC Flagged by Analyzer 0 % (0-5); Neutrophil # 7.26 X10^3/uL (2.7-7.7); Neutrophil % 65.5 % (47-70); Platelet Count 393 K/mm3 (150-450); RBC Distribution Width CV 15.8 % (11.6-14.6); RBC Distribution Width SD 51.4 fl (35.1-43.9); Red Blood Count 3.56 M/mm3 (4.2-5.4); White Blood Count 11.1 K/mm3 (4.4-11.0)
== END | disposition home or self-care (01) ==
LOC: LAB 13:49
PROVIDERS: PCP Internal Medicine; Referring Provider Student in an Organized Health Care Education/Training Program; Visit Provider Student in an Organized Health Care Education/Training Program
DX: K92.2 Gastrointestinal hemorrhage, unspecified (principal)
CPT/HCPCS: 36415; 85025

== ENCOUNTER 2025-01-26 08:49 | Day surgery (SDC) | payer MEDICARE, OTHER, SELFPAY ==
--- NOTE | 2025-01-25 09:09 | PAT.ANE_ITS ---
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 When Was Last Pacemaker Check QUESTION #4 FULL TEXT: You/Your Family Experience fever (hyperthermia) with Anesthesia Last Oral Intake Last Oral intake: Last Oral Intake NPO since Meds taken in AM with sips of water? 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 Has anyone observed you stop No 01/25/25 08:41 breathing during sleep? STOP Results Negative 01/25/25 08:41 QUESTION #5 FULL TEXT : Do you snore loudly (louder than talking or can be heard through closed doors)? 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 Specify any problems Hx of Preganancy in last 3 No 01/25/25 08:41 Months Nurse Filling Out Transfusion VCHRISTIN 01/25/25 08:41 & Questions: Date: 01/25/25 01/25/25 08:41 Time: 08:42 01/25/25 08:41 Patient unable to answer at this time (ie. confused, unrespo /Reproduction History /Reproductive History - yard labor supervisor: /Reproductive Hx- yard labor supervisor Hx Now No 01/25/25 08:41 Gestational Age (in weeks): EDC: Hx Hx Para Hx Section SAB No 01/25/25 08:41 REPLACED BY [facility] Medical History (Updated 01/25/25 @ 08:41 by Fe Diaz) History of Holter monitoring History of revision of total replacement of left knee joint Wears hearing aid Wears glasses Walker as ambulation aid Low iron High cholesterol Dietary restriction Gastric reflux History of echocardiogram History of stress test Cardiology follow-up encounter History of ESBL E. coli infection Irregular heart beat History of TIA (transient ischemic attack) and stroke Constipation Vaginal irritation Furunculosis Renal stone Insulin dependent diabetes mellitus Bladder disease Back pain Difficulty swallowing History of diverticulitis History of pain when walking History of edema History of irregular heartbeat DDD (degenerative disc disease), lumbar Osteoarthritis Chronic back pain Balance disorder Lumbar radiculopathy Neuropathy Obesity GERD (gastroesophageal reflux disease) Hearing loss Chronic UTI (urinary tract infection) Glaucoma Essential (primary) hypertension Home Medications ?Medication ?Instructions ?Recorded ?Last Taken ?Type cholecalciferol (vitamin D3) 50 2,000 unit PO DAILY adorno pplement 07/20/19 08/18/24 10:10 History mcg (2,000 unit) capsule cyanocobalamin (vitamin B-12) 2,000 mcg PO DAILY suppl ement 06/14/20 08/18/24 10:10 History 1,000 mcg capsule omega-3 fatty acids-fish oil 340 1 ea PO DAILY SUPPLEM ENT 08/30/20 08/12/24 History mg-1,000 mg capsule blood sugar diagnostic (FreeStyle #100 ea 07/16/21 Unk nown Rx Precision Esvin Strips) flash glucose sensor (FreeStyle #1 ea 01/23/23 Unknown Rx Shani 2 Sensor kit) Handicap Placard #1 ea 12/24/23 Unknown Rx methenamine hippurate 1 gram tablet 1 g PO BID URINE P ROTECTION 30 06/01/24 08/18/24 22:55 Rx days #60 tabs lisinopril 40 mg tablet 40 mg PO DAILY BP #0 tabs 08/18/24 05:45 Rx amlodipine 10 mg tablet 5 mg PO QHS BP 07/21/2408/08 22:50 History lactobacillus combination no.9 4 4,000 mmu cells PO DA VIOLETTE SUPPLEMENT 07/21/24 08/18/24 10:10 History billion cell capsule (Adult 50 Plus Probiotic) BD Ultra-Fine Short Pen Needle 31 #300 ea 08/02/24 Unk nown Rx gauge x 5/16 (pen needle, diabetic) calcium carbonate 1,200 mg PO DAILY SUPPLEMENT 08/10/24 08/18/24 10:04 History tramadol 50 mg tablet 50 mg PO Q6H PRN PRN Pain Sc ore 08/26/24 Unknown Rx 1-5 Or Pre Pt/Ot 7 days #28 tabs insulin lispro protamine-lispro 25 unit (0.25 mL) subc ut TID 12/09/24 Unknown Rx 100 unit/mL (50-50) subcutaneous Diabetes #90 mL pen (Humalog Mix 50-50 KwikPen) d-mannose 500 mg capsule 500 mg PO DAILY 01/04/25 Unk nown History acetaminophen 500 mg tablet 500 mg PO TID 01/25/25 Unk nown History pantoprazole 40 mg tablet,delayed 40 mg PO BID PRN BRITNI D 01/25/25 Unknown History release Allergy/AdvReac Type Severity Reaction Status Date / Time ciprofloxacin Allergy Severe impairment Verified 01/25/25 08:35 of motor skills hydrochlorothiazide Allergy Mild other Verified 01/25/25 08:35 gatifloxacin (From Tequin) Allergy Unknown Other Verified 01/25/25 08:35 lidocaine (From Xylocaine) Allergy Unknown Other Verified 01/04/25 14:18 Sulfa (Sulfonamide Allergy Unknown unknown Verified 01/04/25 14:18 Antibiotics) metformin AdvReac Intermediate loose Verified 01/04/25 14:18 stool, bladder infections sitagliptin (From Janumet) AdvReac Intermediate loose stool Verified 01/04/25 14:18 batroxobin AdvReac Unknown unknown Verified 01/04/25 14:18 exenatide (From Byetta) AdvReac Unknown unknown Verified 01/04/25 14:18 nizatidine (From Axid) AdvReac Unknown unknown Verified 01/04/25 14:18 sertraline (From Zoloft) AdvReac Unknown unknown Verified 01/25/25 08:35 simvastatin (From Zocor) AdvReac Unknown unknown Verified 01/04/25 14:18 trandolapril (From Mavik) AdvReac Unknown unknown Verified 01/25/25 08:35 betaxolol AdvReac Other Verified 01/25/25 08:35 doxazosin AdvReac Other Verified 01/25/25 08:35 olmesartan (From Benicar) AdvReac Diarrhea Verified 01/25/25 08:35 Family History Mother CVA (cerebral vascular accident) Aunt Breast cancer Surgical History (Updated 01/25/25 @ 08:41 by Fe Diaz) Hx of esophagogastroduodenoscopy Hx of total knee arthroplasty Hx of total knee arthroplasty S/P total hip arthroplasty S/P hip hemiarthroplasty History of total left hip replacement Hx of arthroscopic knee surgery Hx of eye surgery Hx of bilateral cataract extraction Hx of total knee arthroplasty Hx of knee surgery Hx of total knee arthroplasty H/O foot surgery H/O: hysterectomy History of cataract surgery H/O tubal ligation History of cholecystectomy History of tonsillectomy Social History household members: spouse Smoking Status: Never smoker alcohol intake: current alcohol intake frequency: a few times a week substance use type: does not use diet: diabetic well-balanced diet: daily or most days what type of physical activity do you participate in: walking frequency: 1-2 times per week Audit: Pertinent Findings Pertinent Findings EKG Perinent findings: Sinus bradycardia with occasional PVCs. 07/21/2024. Stress test pertinent findings: 07/27/2024. Normal perfusion stress test. EF 82%. Echo (EF%) pertinent findings: 06/07/2024. Normal size function EF 65%. Consult pertinent findings: Cardiology 07/21/2024. Dr. Vianey Shetty Irregular heartbeat. PACs. Observation only. No changes. Additional pertinent findings: Note lidocaine allergy. Recommendation Anesthesia Recommendation Anesthesia recommendation: OPTIMIZED for anesthesia
[2025-01-26] VITALS (7 sets, daily range): BP systolic 129–167; BP diastolic 47–110; PULSE 45–76; RESP 12–18; TEMP 36.6–36.8; O2SAT 96–100; BMI 30.9
--- NOTE | 2025-01-26 09:37 | PCM.PRE.AN2 ---
ASA Classification* ASA Classification ASA Classification: 3 Assessment & Plan Anesthesia* Anesthesia Assessment Anesthesia Assessment: Discussed sedation and/or anesthesia options, risks, benefits, and alternatives with patient/parents/legal guardian/POA. Questions invited. The patient/parents/legal guardian/POA seems to understand and agrees to proceed with anesthesia plan. Reviewed the physical assessment, medical history, allergy history and patient home medications list prior to surgery/procedure/anesthetic and documented any changes. Performed airway and anesthesia risk assessments. Anesthesia Type Anesthesia Type: MAC Anesthesia Focused Assessment* Airway Assessment Mouth opens: >3 cm Mallampati Score: II Focused Labs Anesthesia Preop lab: CBC WBC 11.1 K/mm3 (4.4-11.0) H 09/10/24 13:51 09/10/24 RBC 3.56 M/mm3 (4.2-5.4) L 09/10/24 13:51 09/10/24 Hgb 9.5 g/dL (12.0-15.0) L 09/10/24 13:51 09/10/24 Hct 31.9 % (37-47) L 09/10/24 13:51 09/10/24 Plt Count 393 K/mm3 (150-450) 09/10/24 13:51 09/10/24 CHEMISTRY Potassium 3.4 mmol/L (3.5-5.1) L 08/27/24 06:56 08/27/24 Sodium 139 mmol/L (136-145) 08/27/24 06:56 08/27/24 Magnesium 2.0 mg/dL (1.6-2.6) 08/09/24 15:39 08/09/24 BUN 18 mg/dL (7-18) 08/27/24 06:56 08/27/24 Creatinine 0.74 mg/dL (0.55-1.02) 08/27/24 06:56 08/27/24 Glucose 153 mg/dL (74-106) H 08/27/24 06:56 08/27/24 POC Glucose 159 mg/dL (74-106) H 08/27/24 05:53 08/27/24 TSH 0.59 uIU/mL (0.358-3.74) 03/31/23 10:40 07/24/23 COAG Pre-Assessment Diagnosis/Proposed Procedure Planned Operative Procedure(s): EGD Anesthesia History Anesthesia History - 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 When Was Last Pacemaker Check QUESTION #4 FULL TEXT: You/Your Family Experience fever (hyperthermia) with Anesthesia Last Oral Intake Last Oral intake: Last Oral Intake NPO since Meds taken in AM with sips of water? Meds patient instructed to take am of surgery PONV PONV - supervisor underwriting clerks: PONV - supervisor underwriting clerks Female Yes 01/25/25 08:41 HX of Motion Sickness No 01/25/25 08:41 HX of N/V After Surgery No 01/25/25 08:41 Non-Smoker Yes 01/25/25 08:41 Duration of Surgery greater No 01/25/25 08:41 than 60 minutes Number of Risk Factors 2 01/25/25 08:41 PONV Score Moderate Risk 01/25/25 08:41 Height & Weight Height & Weight: Anesthesia: Height & Weight Height 5 ft 6 in 01/04/25 14:13 Respiratory Assessment Respiratory Assessment - supervisor underwriting clerks: Respiratory Tract Infection Hx - supervisor underwriting clerks Hx Respiratory Tract Infection No 01/25/25 08:41 STOP Sleep Apnea STOP Sleep Apnea - supervisor underwriting clerks: STOP Sleep Apnea - supervisor underwriting clerks Hx Hypertension Yes: CONTROLLED ON MED 01/25/25 08:41 Hx Sleep Apnea No 01/25/25 08:41 CPAP No 01/25/25 08:41 BIPAP Do you snore loudly (louder No 01/25/25 08:41 than talking or can be heard Do you often feel tired/ No 01/25/25 08:41 fatigued/ sleepy during daytime? Has anyone observed you stop No 01/25/25 08:41 breathing during sleep? STOP Results Negative 01/25/25 08:41 QUESTION #5 FULL TEXT : Do you snore loudly (louder than talking or can be heard through closed doors)? Tobacco Use History Tobacco Use History - supervisor underwriting clerks: Tobacco Use History - supervisor underwriting clerks Tobacco Use Smoking Status Never smoker 01/25/25 08:41 Hx Tobacco Use No 01/25/25 08:41 Years Smoking Packs Smoked per Day Smoking Cessation Date was within the last 15 years Hx Smoking Cessation Date Hx Smoking Cessation Counseling Hematologic Medial History Hematologic Hx - supervisor underwriting clerks: Hematologic Medical Hx - geneticist Hx of Blood Transfusion No 01/25/25 08:41 Hx of Transfusion in last 3 No 01/25/25 08:41 Months Date of Last Transfusion (if within last 3 months) Ever experience any problems No 01/25/25 08:41 with transfusion(s)? Specify any problems Hx of Preganancy in last 3 No 01/25/25 08:41 Months Nurse Filling Out Transfusion VCHRISTIN 01/25/25 08:41 & Questions: Date: 01/25/25 01/25/25 08:41 Time: 08:42 01/25/25 08:41 Patient unable to answer at this time (ie. confused, unrespo /Reproduction History /Reproductive History - supervisor underwriting clerks: /Reproductive Hx- supervisor underwriting clerks Hx Now No 01/25/25 08:41 Gestational Age (in weeks): EDC: Hx Hx Para Hx Section SAB No 01/25/25 08:41 Active Medications Active Medications: Current Medications Generic Name Dose Route Start Last Admin Trade Name Freq PRN Reason Stop Dose Admin Lactated Ringer's 1,000 mls @ 15 mls/hr 01/26/25 09:30 IV .Q48H RAEANN PFSH Medical History History of Holter monitoring History of revision of total replacement of left knee joint Wears hearing aid Wears glasses Walker as ambulation aid Low iron High cholesterol Dietary restriction Gastric reflux History of echocardiogram History of stress test Cardiology follow-up encounter History of ESBL E. coli infection Irregular heart beat History of TIA (transient ischemic attack) and stroke Constipation Vaginal irritation Furunculosis Renal stone Insulin dependent diabetes mellitus Bladder disease Back pain Difficulty swallowing History of diverticulitis History of pain when walking History of edema History of irregular heartbeat DDD (degenerative disc disease), lumbar Osteoarthritis Chronic back pain Balance disorder Lumbar radiculopathy Neuropathy Obesity GERD (gastroesophageal reflux disease) Hearing loss Chronic UTI (urinary tract infection) Glaucoma Essential (primary) hypertension Home Medications ?Medication ?Instructions ?Recorded ?Last Taken ?Type cholecalciferol (vitamin D3) 50 2,000 unit PO DAILY supplement 07/20/19 08/18/24 10:10 History mcg (2,000 unit) capsule cyanocobalamin (vitamin B-12) 2,000 mcg PO DAILY supplement 06/14/20 08/18/24 10:10 History 1,000 mcg capsule omega-3 fatty acids-fish oil 340 1 ea PO DAILY SUPPLEMENT 08/30/20 08/12/24 History mg-1,000 mg capsule blood sugar diagnostic (FreeStyle #100 ea 07/16/21 Unknown Rx Precision Esvin Strips) flash glucose sensor (FreeStyle #1 ea 01/23/23 Unknown Rx Shani 2 Sensor kit) Handicap Placard #1 ea 12/24/23 Unknown Rx methenamine hippurate 1 gram tablet 1 g PO BID URINE PROTECTION 30 06/01/24 08/18/24 22:55 Rx days #60 tabs lisinopril 40 mg tablet 40 mg PO DAILY BP #0 tabs 06/09/24 08/18/24 05:45 Rx amlodipine 10 mg tablet 5 mg PO QHS BP 07/21/24 08/18/24 22:50 History lactobacillus combination no.9 4 4,000 mmu cells PO DAILY SUPPLEMENT 07/21/24 08/18/24 10:10 History billion cell capsule (Adult 50 Plus Probiotic) BD Ultra-Fine Short Pen Needle 31 #300 ea 08/02/24 Unknown Rx gauge x 5/16 (pen needle, diabetic) calcium carbonate 1,200 mg PO DAILY SUPPLEMENT 08/10/24 08/18/24 10:04 History tramadol 50 mg tablet 50 mg PO Q6H PRN PRN Pain Score 08/26/24 Unknown Rx 1-5 Or Pre Pt/Ot 7 days #28 tabs insulin lispro protamine-lispro 25 unit (0.25 mL) subcut TID 12/09/24 Unknown Rx 100 unit/mL (50-50) subcutaneous Diabetes #90 mL pen (Humalog Mix 50-50 KwikPen) d-mannose 500 mg capsule 500 mg PO DAILY 01/04/25 Unknown History acetaminophen 500 mg tablet 500 mg PO TID 01/25/25 Unknown History pantoprazole 40 mg tablet,delayed 40 mg PO BID PRN GERD 01/25/25 Unknown History release Allergy/AdvReac Type Severity Reaction Status Date / Time ciprofloxacin Allergy Severe impairment Verified 01/25/25 08:35 of motor skills hydrochlorothiazide Allergy Mild other Verified 01/25/25 08:35 gatifloxacin (From Tequin) Allergy Unknown Other Verified 01/25/25 08:35 lidocaine (From Xylocaine) Allergy Unknown Other Verified 01/04/25 14:18 Sulfa (Sulfonamide Allergy Unknown unknown Verified 01/04/25 14:18 Antibiotics) metformin AdvReac Intermediate loose Verified 01/04/25 14:18 stool, bladder infections sitagliptin (From Janumet) AdvReac Intermediate loose stool Verified 01/04/25 14:18 batroxobin AdvReac Unknown unknown Verified 01/04/25 14:18 exenatide (From Byetta) AdvReac Unknown unknown Verified 01/04/25 14:18 nizatidine (From Axid) AdvReac Unknown unknown Verified 01/04/25 14:18 sertraline (From Zoloft) AdvReac Unknown unknown Verified 01/25/25 08:35 simvastatin (From Zocor) AdvReac Unknown unknown Verified 01/04/25 14:18 trandolapril (From Mavik) AdvReac Unknown unknown Verified 01/25/25 08:35 betaxolol AdvReac Other Verified 01/25/25 08:35 doxazosin AdvReac Other Verified 01/25/25 08:35 olmesartan (From Benicar) AdvReac Diarrhea Verified 01/25/25 08:35 Family History Mother CVA (cerebral vascular accident) Aunt Breast cancer Surgical History Hx of esophagogastroduodenoscopy Hx of total knee arthroplasty Hx of total knee arthroplasty S/P total hip arthroplasty S/P hip hemiarthroplasty History of total left hip replacement Hx of arthroscopic knee surgery Hx of eye surgery Hx of bilateral cataract extraction Hx of total knee arthroplasty Hx of knee surgery Hx of total knee arthroplasty H/O foot surgery H/O: hysterectomy History of cataract surgery H/O tubal ligation History of cholecystectomy History of tonsillectomy Social History household members: spouse Smoking Status: Never smoker alcohol intake: current alcohol intake frequency: a few times a week substance use type: does not use diet: diabetic well-balanced diet: daily or most days what type of physical activity do you participate in: walking frequency: 1-2 times per week Review of Systems (Anesthesia) ROS Narrative System reviewed and no additional complaints, except as documented.
[2025-01-26] MEDS: Lactated Ringers 1,000 ML 15 ML IV (10:04)
--- NOTE | 2025-01-26 10:30 | EGD_PTH ---
PATIENT: ARSALAN SPENCE FEBRUARY LOC: EN U#:[id number] AGE/SX: 79/F ROOM: RE01/26/[address]: Dr. James Gagnon DO : 1945 BED: DIS: 01/26/2025 SPEC #: [id number] RECD: 01/26/25 11:59 STATUS: MARYJO REQ #: [id number] CHATA: 01/26/25 10:[address]: James Gagnon DEPT: SURGICAL PATHOLOGY RECD BY: Alphonso Garber ENTERED: 01/26/25 13:16 SP TYPE: EGD BIOPSY JONATHAN DR: Dr. Luther Torre MD Tissues: A - Gastric mucous membrane B - Esophagus, NOS Procedures: Immunohistochemical Stains Surgery Specimen Level IV HEADER OPERATION: EGD and biopsy PRE-OP DIAGNOSIS: Iron deficiency anemia, history of ulcers TISSUE SUBMITTED: A- Gastric antrum biopsy, B- Esophagus polyp MICROSCOPIC DIAGNOSIS A. Stomach, gastric antrum, biopsy: Oxyntic mucosa with features of reactive gastropathy. IHC negative for H.pylori organisms. B. Esophagus, polyp, biopsy: Squamous mucosa with reactive changes. Negative for eosinophils. MICROSCOPIC DESCRIPTION Slides are reviewed. All matched controls reacted appropriately. These tests were developed and their performance characteristics determined by [facility]. They may not have been cleared or approved by the U.S. Food and Drug Administration. The FDA has determined that such clearance or approval is not necessary. The above immunohistochemical/dualISH markers are ordered and reviewed by the Pathologist. GROSS DESCRIPTION A. Received in formalin in a container labeled with the patient's name, date of , and gastric antrum check H. pylori are 2 jones-pink strips of mucosal tissue each measuring approximately 0.8 x 0.3 x 0.2 cm. Submitted in toto in A1. B. Received in formalin in a container labeled with the patient's name, date of , and esophagus polyp are multiple small jones-pink fragments of mucosal tissue measuring 0.8 x 0.5 x 0.1 cm in aggregate. Submitted in toto in B1. [facility] 01-26-2025 CPT:55716l8,46467
--- NOTE | 2025-01-26 10:51 | HP.PCM_ITS ---
HPI - General General Date of Admission: 01/26/25 Date of Service: 01/26/25 Chief Complaint: Gastric and duodenal ulcers HPI Narrative ARSALAN SPENCE, is a 79 F who presents for surveillance of gastric and duodenal ulcers. [facility] TCU admission 08.19.24-08.26.24 following total knee replacement. Pt had total knee replacement and then had an infection and they had to redo the surgery. Found to have iron deficient anemia. Underwent EGD showing oozing gastric ulcers and non-bleeding duodenal ulcers. EGD 09.02.24: - Normal esophagus. - Oozing gastric ulcer with a visible vessel. Treated with a heater probe. Biopsied. - Non-bleeding duodenal ulcers with no stigmata of bleeding. Biopsied OV 09.10.24: Pt has been doing well from a GI standpoint. She has questions regarding all her medications. She is having no abd pain, n/v, constipation, diarrhea or blood in her stool. [facility] Medical History History of Holter monitoring History of revision of total replacement of left knee joint Wears hearing aid Wears glasses Walker as ambulation aid Low iron High cholesterol Dietary restriction Gastric reflux History of echocardiogram History of stress test Cardiology follow-up encounter History of ESBL E. coli infection Irregular heart beat History of TIA (transient ischemic attack) and stroke Constipation Vaginal irritation Furunculosis Renal stone Insulin dependent diabetes mellitus Bladder disease Back pain Difficulty swallowing History of diverticulitis History of pain when walking History of edema History of irregular heartbeat DDD (degenerative disc disease), lumbar Osteoarthritis Chronic back pain Balance disorder Lumbar radiculopathy Neuropathy Obesity GERD (gastroesophageal reflux disease) Hearing loss Chronic UTI (urinary tract infection) Glaucoma Essential (primary) hypertension Home Medications ?Medication ?Instructions ?Recorded ?Last Taken ?Type cholecalciferol (vitamin D3) 50 2,000 unit PO DAILY adorno pplement 07/20/19 08/18/24 10:10 History mcg (2,000 unit) capsule cyanocobalamin (vitamin B-12) 2,000 mcg PO DAILY suppl ement 06/14/20 08/18/24 10:10 History 1,000 mcg capsule omega-3 fatty acids-fish oil 340 1 ea PO DAILY SUPPLEM ENT 08/30/20 08/12/24 History mg-1,000 mg capsule blood sugar diagnostic (FreeStyle #100 ea 07/16/21 Unk nown Rx Precision Esvin Strips) flash glucose sensor (FreeStyle #1 ea 01/23/23 Unknown Rx Shani 2 Sensor kit) Handicap Placard #1 ea 12/24/23 Unknown Rx methenamine hippurate 1 gram tablet 1 g PO BID URINE P ROTECTION 30 06/01/24 08/18/24 22:55 Rx days #60 tabs lisinopril 40 mg tablet 40 mg PO DAILY BP #0 tabs 08/18/24 05:45 Rx amlodipine 10 mg tablet 5 mg PO QHS BP 07/21/2408/08 22:50 History lactobacillus combination no.9 4 4,000 mmu cells PO DA VIOLETTE SUPPLEMENT 07/21/24 08/18/24 10:10 History billion cell capsule (Adult 50 Plus Probiotic) BD Ultra-Fine Short Pen Needle 31 #300 ea 08/02/24 Unk nown Rx gauge x 5/16 (pen needle, diabetic) calcium carbonate 1,200 mg PO DAILY SUPPLEMENT 08/10/24 08/18/24 10:04 History tramadol 50 mg tablet 50 mg PO Q6H PRN PRN Pain Sc ore 08/26/24 Unknown Rx 1-5 Or Pre Pt/Ot 7 days #28 tabs insulin lispro protamine-lispro 25 unit (0.25 mL) subc ut TID 12/09/24 Unknown Rx 100 unit/mL (50-50) subcutaneous Diabetes #90 mL pen (Humalog Mix 50-50 KwikPen) d-mannose 500 mg capsule 500 mg PO DAILY 01/04/25 Unk nown History acetaminophen 500 mg tablet 500 mg PO TID 01/25/25 Unk nown History pantoprazole 40 mg tablet,delayed 40 mg PO BID PRN BRITNI D 01/25/25 Unknown History release Allergy/AdvReac Type Severity Reaction Status Date / Time ciprofloxacin Allergy Severe impairment Verified 01/26/25 10:00 of motor skills hydrochlorothiazide Allergy Mild other Verified 01/26/25 10:00 gatifloxacin (From Tequin) Allergy Unknown Other Verified 01/26/25 10:00 lidocaine (From Xylocaine) Allergy Unknown Other Verified 01/26/25 10:00 Sulfa (Sulfonamide Allergy Unknown unknown Verified 01/26/25 10:00 Antibiotics) metformin AdvReac Intermediate loose Verified 01/26/25 10:00 stool, bladder infections sitagliptin (From Janumet) AdvReac Intermediate loose stool Verified 01/26/25 10:00 batroxobin AdvReac Unknown unknown Verified 01/26/25 10:00 exenatide (From Byetta) AdvReac Unknown unknown Verified 01/26/25 10:00 nizatidine (From Axid) AdvReac Unknown unknown Verified 01/26/25 10:00 sertraline (From Zoloft) AdvReac Unknown unknown Verified 01/26/25 10:00 simvastatin (From Zocor) AdvReac Unknown unknown Verified 01/26/25 10:00 trandolapril (From Mavik) AdvReac Unknown unknown Verified 01/26/25 10:00 betaxolol AdvReac Other Verified 01/26/25 10:00 doxazosin AdvReac Other Verified 01/26/25 10:00 olmesartan (From Benicar) AdvReac Diarrhea Verified 01/26/25 10:00 Family History Mother CVA (cerebral vascular accident) Aunt Breast cancer Surgical History Hx of esophagogastroduodenoscopy Hx of total knee arthroplasty Hx of total knee arthroplasty S/P total hip arthroplasty S/P hip hemiarthroplasty History of total left hip replacement Hx of arthroscopic knee surgery Hx of eye surgery Hx of bilateral cataract extraction Hx of total knee arthroplasty Hx of knee surgery Hx of total knee arthroplasty H/O foot surgery H/O: hysterectomy History of cataract surgery H/O tubal ligation History of cholecystectomy History of tonsillectomy Social History household members: spouse Smoking Status: Never smoker alcohol intake: current alcohol intake frequency: a few times a week substance use type: does not use diet: diabetic well-balanced diet: daily or most days what type of physical activity do you participate in: walking frequency: 1-2 times per week ROS Constitutional Constitutional: Denies fatigue, fever(s), poor appetite, weight gain or weight loss Gastrointestinal Gastrointestinal: Denies belching, bloating, change in bowel habits, change in stool character, chewing difficulty, coffee ground emesis, constipation, cramping, diarrhea, dyspepsia, dysphagia, early satiety, excessive flatus, fecal incontinence, heartburn, hematemesis, hematochezia, hemorrhoids, loose stools, melena, nausea, odynophagia, rectal bleeding, tenesmus, vomiting or weight changes Vital Signs Vital Signs Vital Signs: 01/26/25 10:01 01/26/25 10:01 Temperature 97.9 F Temperature Source Temporal Pulse Rate 45 L Respiratory Rate 16 Respiratory Pattern Normal Blood Pressure 167/49 H Blood Pressure Mean 88 Blood Pressure Source Monitor Blood Pressure Position Sitting Blood Pressure Location Left Arm Pulse Ox 99 Oxygen Delivery Method Room Air Weight Weight: 191 lb 12.835 oz Body Mass Index (BMI) 30.9 Physical Exam Const alert, oriented x3, no apparent distress and healthy appearing General Appearance: cooperative GI normal to inspection, nondistended, normoactive bowel sounds, soft to palpation, non-tender and non-distended Percussion: normal to percussion Rectal Exam: deferred Assessment & Plan Assessment/Plan (1) Peptic ulcer disease: PLAN: Assessment and Plan Assessment and Plan (1) Iron deficiency anemia: Status: Acute Plan: This is a 79 yo female pt who was hospitalized for total knee replacement and subsequently found to have a GI bleed. She underwent EGD and was found to have gastric and duodenal ulcers. She is on pantoprazole and Carafate. She will continue these medications. I will order CBC to continue monitoring her hemoglobin. -EGD -CBC -Continue PPI and Carafate (2) GERD (gastroesophageal reflux disease): Status: Chronic Orders: Orders CBC W/Diff, Automated Today K92.2 - Gastrointestinal hemorrhage, unspecified
--- NOTE | 2025-01-26 11:16 | OP.EGD_ITS ---
Patient Name: Reva Warner Procedure Date: 01/26/2025 10:35 AM Date of : 1945 Age: 79 Procedure: Upper GI endoscopy Indications: Peptic ulcer Providers: James Gagnon DO Referring MD: Luther Torre MD Medicines: Monitored Anesthesia Care Patient Profile: This is a 79 year old female. Refer to note in patient chart for documentation of history and physical. Patient has symptoms of chronic epigastric abdominal pain. Complications: No immediate complications. Procedure: Pre-Anesthesia Assessment: - Prior to the procedure, a History and Physical was performed, and patient medications and allergies were reviewed. The patient is competent. The risks and benefits of the procedure and the sedation options and risks were discussed with the patient. All questions were answered and informed consent was obtained. Patient identification and proposed procedure were verified by the physician in the pre-procedure area. Mental Status Examination: alert and oriented. Airway Examination: normal oropharyngeal airway and neck mobility. Respiratory Examination: clear to auscultation. CV Examination: normal. Prophylactic Antibiotics: The patient does not require prophylactic antibiotics. Prior Anticoagulants: The patient has taken no anticoagulant or antiplatelet agents except for NSAID medication. ASA Grade Assessment: II - A patient with mild systemic disease. After reviewing the risks and benefits, the patient was deemed in satisfactory condition to undergo the procedure. The anesthesia plan was to use monitored anesthesia care (MAC). Immediately prior to administration of medications, the patient was re-assessed for adequacy to receive sedatives. The heart rate, respiratory rate, oxygen saturations, blood pressure, adequacy of pulmonary ventilation, and response to care were monitored throughout the procedure. The physical status of the patient was re-assessed after the procedure. After obtaining informed consent, the endoscope was passed under direct vision. Throughout the procedure, the patient's blood pressure, pulse, and oxygen saturations were monitored continuously. The Endoscope was introduced through the mouth, and advanced to the second part of duodenum. The upper GI endoscopy was accomplished without difficulty. The patient tolerated the procedure well. Scope In: 11:05:47 AM Scope Out: 11:08:43 AM Total Procedure Duration Time 0 hours 2 minutes 56 seconds Findings: A single 6 mm polyp with no bleeding was found 21 to 22 cm from the incisors. The polyp was removed with a jumbo cold forceps. Resection and retrieval were complete. Verification of patient identification for the specimen was done. Patchy mildly erythematous mucosa without bleeding was found in the gastric body. Biopsies were taken with a cold forceps for histology. Verification of patient identification for the specimen was done. Estimated blood loss was minimal. Biopsies were taken with a cold forceps for Helicobacter pylori testing. Verification of patient identification for the specimen was done. Estimated blood loss was minimal. No gross lesions were noted in the entire examined duodenum. Impression: - Esophageal polyp(s) were found. Resected and retrieved. - Erythematous mucosa in the gastric body. Biopsied. - No gross lesions in the entire examined duodenum. Recommendation: - Patient has a contact number available for emergencies. The signs and symptoms of potential delayed complications were discussed with the patient. Return to normal activities tomorrow. Written discharge instructions were provided to the patient. - Resume previous diet. - Continue present medications. - Await pathology results. Procedure Code(s): --- Professional --- 67672, Esophagogastroduodenoscopy, flexible, transoral; with biopsy, single or multiple CPT copyright 2021 [employer]. All rights reserved. The codes documented in this report are preliminary and upon supervisor line department review may be revised to meet current compliance requirements. James Gagnon DO 01/26/2025 11:16:33 AM This report has been signed electronically. Number of Addenda: 0 Note Initiated On: 01/26/2025 10:35 AM
--- NOTE | 2025-01-26 11:17 | OP.CCLET_ITS ---
01/26/2025 Luther Torre MD [address] [place] [address] [place] [address] Re : Upper GI endoscopy procedure for Reva Warner Dear Dr. Torre This procedure was performed on Sunday, January 26, 2025. My impressions and recommendations are as follows: Impressions : - Esophageal polyp(s) were found. Resected and retrieved. - Erythematous mucosa in the gastric body. Biopsied. - No gross lesions in the entire examined duodenum. Recommendations : - Patient has a contact number available for emergencies. The signs and symptoms of potential delayed complications were discussed with the patient. Return to normal activities tomorrow. Written discharge instructions were provided to the patient. - Resume previous diet. - Continue present medications. - Await pathology results. My findings are described in the full procedure note, which is enclosed. If I can be of further assistance, please feel free to contact me at . Sincerely, James Gagnon, 01/26/2025 11:16:33 AM This report has been signed electronically.
--- NOTE | 2025-01-26 11:18 | PCM.POST.ANE ---
Anesthesia: Postop Eval I Current Vital Signs Temperature: 98 F Pulse Rate: 67 Blood Pressure: 135/47 Respiratory Rate: 16 Pulse Ox: 96 Oxygen Delivery Method: Room Air Assessment Airway patent: Yes Spontaneous unlabored respirations: Yes Mental status: Awake and Calm nausea: No Vomiting: No Anesthesia Complication: No Fluid Hydration Crystalloid volume administer (ml): 300 Total IV fluid infused: 300 Progress Note Anesthesia document: Postop Eval 1 completed: Yes
--- NOTE | 2025-01-26 11:40 | PCM.POSTANE2 ---
Anesthesia Postop Eval I Sum Postop Eval Completion status Anesthesia document: Postop Eval 1 completed: Yes Anesthesia Postop Eval I Summary Anesthesia Postop Eval I Summary: Anesthesia Postop Eval I: Assessment Summary Airway patent Yes 01/26/25 11:19 [email or web address] Spontaneous unlabored Yes 01/26/25 11:19 [email or web address] respirations Mental status Awake,Calm 01/26/25 11:19 [email or web address] nausea No 01/26/25 11:19 [email or web address] Vomiting No 01/26/25 11:19 [email or web address] Anesthesia Postop Eval I: Fluid Summary Crystalloid volume administer 300 01/26/25 11:19 [email or web address] (ml) Colloids volume administered ( ml) Blood Product volume administered (ml) Total IV fluid infused 300 01/26/25 11:19 [email or web address] Anesthesia Postop Eval I: Summary Notes Anesthesia Complication No 01/26/25 11:19 [email or web address] Anesthesia Complication Comment: Post-operative progress note Anesthesia: Postop Eval II Evaluation Mental status: Awake Pain Level: 0 nausea: No Vomiting: No
== END 2025-01-26 12:01 | disposition home or self-care (01) ==
LOC: EN 08:51 → AC 08:51
PROVIDERS: PCP Internal Medicine; Referring Provider Internal Medicine; Visit Provider Internal Medicine Gastroenterology
PROC: 0DJ08ZZ Inspection of Upper Intestinal Tract, Via Natural or Artificial Opening Endoscopic (ICD-10-PCS; CPT 43235; principal; 2025-01-26 10:25)
DX: K27.9 Peptic ulcer, site unspecified, unspecified as acute or chronic, without hemorrhage or perforation (principal); E11.40 Type 2 diabetes mellitus with diabetic neuropathy, unspecified; D50.9 Iron deficiency anemia, unspecified; K21.9 Gastro-esophageal reflux disease without esophagitis; E78.00 Pure hypercholesterolemia, unspecified; I10 Essential (primary) hypertension; K22.81 Esophageal polyp; Z79.899 Other long term (current) drug therapy
CPT/HCPCS: 43239; 88305; 88342; J2405

== ENCOUNTER → 2025-01-28 | Outpatient (CLI) | payer MEDICARE, OTHER, SELFPAY ==
[2025-01-28 12:36] LABS: Absolute Lymphocyte Count 3.14 X10^3/uL (0.83-4.51); Absolute Neutrophil Count 5.5 X10^3/uL (2.0-7.7); Basophil# 0.05 X10^3/uL; Basophil% 0.5 % (0-1); Eosinophil# 0.32 X10^3/uL; Eosinophils% 3.3 % (0-5); Hematocrit 34.1 % (37-47); Hemoglobin 10.4 g/dL (12.0-15.0); Lymphocyte # 3.14 X10^3/ul (0.83-4.51); Lymphocyte % 32.2 % (19-41); Mean Corp Hgb Conc 30.5 g/dL (32-36); Mean Corpuscular Hgb 26.8 pg (27.0-32.0); Mean Corpuscular Volume 87.9 fL (81-99); Mean Platelet Vol. 10.3 fl (6.2-12.0); Monocyte# 0.67 X10^3/uL; Monocyte% 6.9 % (0-10); NRBC Flagged by Analyzer 0 % (0-5); Neutrophil # 5.51 X10^3/uL (2.7-7.7); Neutrophil % 56.5 % (47-70); Platelet Count 241 K/mm3 (150-450); RBC Distribution Width CV 15.5 % (11.6-14.6); RBC Distribution Width SD 49.3 fl (35.1-43.9); Red Blood Count 3.88 M/mm3 (4.2-5.4); White Blood Count 9.8 K/mm3 (4.4-11.0)
[2025-01-28 13:09] LABS: ALB/GLOB Ratio 1.3 RATIO (0.9-2.4); AST(SGOT) 16 U/L (<=31); Alanine Aminotransfer ALT/SGPT 7 U/L (<=34); Albumin, Serum 4.1 g/dL (3.4-4.8); Alkaline Phosphatase 84 U/L (35-104); Anion Gap 14 (5-15); BUN 17 mg/dL (4-19); BUN/Creat Ratio 19.4 RATIO (10-20); Calcium,Total 9.7 mg/dL (7.6-11.0); Carbon Dioxide 23.6 mmol/L (21.0-32.0); Chloride 101 mmol/L (98-108); Creatinine, Serum 0.88 mg/dL (0.70-1.20); EST Glomerular Filtration Rate 67 (>60); Globulin 3.2 g/dL (2.2-4.2); Glucose 142 mg/dL (70-99); Potassium 4.4 mmol/L (3.3-5.1); Protein, Total 7.3 g/dL (5.9-8.4); Sodium Level 139 mmol/L (133-145); Total Bilirubin 0.25 mg/dL (0.00-1.30); Vitamin D,25 Hydroxy 42.7 ng/mL (30-100)
== END | disposition home or self-care (01) ==
LOC: MTLAB 09:55
PROVIDERS: PCP Internal Medicine; Referring Provider Internal Medicine; Visit Provider Internal Medicine
DX: E53.8 Deficiency of other specified B group vitamins (principal); E78.5 Hyperlipidemia, unspecified; E55.9 Vitamin D deficiency, unspecified
CPT/HCPCS: 36415; 80053; 82306; 85025

== ENCOUNTER → 2025-03-30 | Outpatient (CLI) | payer MEDICARE, OTHER, SELFPAY ==
--- NOTE | 2025-03-30 14:17 | MRI_ITS ---
PROCEDURE: SPINE LUMBAR (ROUTINE) 03/30/2025 REASON FOR EXAM: PAIN, DDD, STENOSIS TECHNIQUE: SPINE LUMBAR (ROUTINE) COMPARISON: MRI lumbar spine 01/23/2023 FINDINGS: Vertebrae: Unremarkable. No focal or suspicious lesion. Alignment: Retrolisthesis L3 on L4 by 2 mm and L4 on L5 by 2 mm and L5 on S1 by 2 mm. Conus Medullaris: Unremarkable. L1-2: Disc desiccation. Disc bulge. Facet joint arthropathy. No significant foraminal or canal stenosis. L2-3: Disc desiccation. Disc bulge. No significant foraminal or canal stenosis. L3-4: Disc desiccation. Disc bulge. Mild inferior bilateral foramina stenosis. Mild canal stenosis. L4-5: Disc desiccation. Disc bulge. Facet joint arthropathy. Mild bilateral foramina stenosis. Mild canal stenosis. L5-S1: Disc desiccation. Disc bulge. Facet joint arthropathy. Mild bilateral foramina stenosis. No significant canal stenosis. Sacrum: Unremarkable. No acute findings. MRI/Spine Lumbar (Routine) IMPRESSION: Multilevel degenerate changes predominantly for facet joint arthropathy and ret rolisthesis by 2 mm at L3-L4, L4-L5 and L5-S1. Mild canal stenosis at L3-L4 and L4-L5. Reading Location: [id number]
== END | disposition home or self-care (01) ==
LOC: MRI 14:13
PROVIDERS: PCP Internal Medicine; Referring Provider Student in an Organized Health Care Education/Training Program; Visit Provider Student in an Organized Health Care Education/Training Program
DX: M51.362 Other intervertebral disc degeneration, lumbar region with discogenic back pain and lower extremity pain (principal); M48.062 Spinal stenosis, lumbar region with neurogenic claudication
CPT/HCPCS: 72148

== ENCOUNTER → 2025-06-14 | Outpatient (CLI) | payer MEDICARE, OTHER, SELFPAY ==
--- NOTE | 2025-06-14 10:12 | RAD_ITS ---
EXAM: XR Pelvis, 1 or 2 Views CLINICAL INDICATION: LEFT HIP PAIN TECHNIQUE: Frontal view of the pelvis. COMPARISON: No relevant prior studies available. FINDINGS: BONES/JOINTS: Total left hip replacement. Intact hardware. Anatomic position. Mild degenerative changes of the right hip joint. No acute fracture. No dislocation. SOFT TISSUES: Unremarkable. RAD/Pelvis 1 or 2 Views IMPRESSION: Postoperative changes as above. Reading Location: [id number]
== END | disposition home or self-care (01) ==
LOC: RAD 10:11
PROVIDERS: PCP Internal Medicine; Referring Provider Anesthesiology; Visit Provider Anesthesiology
DX: M70.72 Other bursitis of hip, left hip (principal); M25.552 Pain in left hip
CPT/HCPCS: 72170

== ENCOUNTER → 2025-06-23 | Outpatient (CLI) | payer MEDICARE, OTHER, SELFPAY ==
--- NOTE | 2025-06-23 14:30 | BD_ITS ---
PROCEDURE: DEXA BONE DENSITY STUDY 06/23/2025 REASON FOR EXAM: POST MENOPAUSAL F, age 79 y/o . Postmenopausal. TECHNIQUE: Procedure Code: BDDBD Modality: DX Procedure: DEXA BONE DENSITY STUDY COMPARISON: Prior study dated May 28, 2023. FINDINGS: BMD and T-SCORES Lumbar spine: 1.097 g/cm2, T-score 0.5 Levels: L1 through L4 Right femoral neck: 0.736 g/cm2, T-score -1.0 Femoral neck comparison data not recommended for monitoring change. Right total hip: 0.963 g/cm2, T-score 0.2 Change from prior: Loss of 0.6%. The World Health Organization has defined the following categories based on bone density: Normal bone density: T-score equal to or greater than -1.0 Osteopenia: T-score between -1.0 and -2.5 Osteoporosis: T-score equal to or less than -2.5 FRAX (or Comparable) Fracture Risk Assessment: 10 Year Probability of Fracture: Major Osteoporotic Fracture: 25% Hip Fracture: 5.1% (Note: FRAX is not to be reported in setting of normal range bone density, osteoporosis on DEXA, known history of osteoporosis, prior osteoporotic hip or vertebral fracture, or for any patient undergoing pharmacological treatment for bone loss.) The National Osteoporosis Foundation (NOF) recommends pharmacological treatment for patients with a FRAX 10-year risk of 3% or higher for a hip fracture, or 20% or higher for a major osteoporotic fracture, to prevent osteoporosis and reduce fracture risk. The patient does meet the pharmacological treatment recommendations for prevention of osteoporosis. BD/Dexa Bone Density Study IMPRESSION: OSTEOPENIA. Recommend follow-up as clinically warranted. Reading Location: [place] [address]
--- NOTE | 2025-06-23 15:00 | BI_ITS ---
EXAM: SCRN MAMM (CAD)W/MIGUEL BILAT DATE: 06/23/2025 CLINICAL HISTORY: F, Age 79 y/o , BREAST CANCER SCREENING Aunt with breast cancer. TECHNIQUE: Procedure Code: [id number] Modality: MG Procedure: SCRN MAMM (CAD)W/MIGUEL BILAT COMPARISON: Prior exam(s) dated March 15, 2024.. FINDINGS: TISSUE DENSITY: There are scattered areas of fibroglandular density. Bilateral Breast Mammographic Findings: No significant masses, calcifications or other abnormalities are identified. No suspicious masses, areas of developing architectural distortion, or suspicious calcifications. There has been no significant interval change. BI/SCRN MAMM (CAD)W/MIGUEL BILAT IMPRESSION: Stable bilateral screening mammogram. OVERALL FINAL ASSESSMENT BI-RADS 1: NEGATIVE. RECOMMENDATION: Routine annual follow-up in 1 Year Additional Recommendation none A letter with findings and recommendations will be mailed to the patient. Reading Location: [place] [id number]
--- NOTE | 2025-06-23 15:00 | BI_ITS ---
EXAM: SCRN MAMM (CAD)W/MIGUEL BILAT DATE: 06/23/2025 CLINICAL HISTORY: F, Age 79 y/o , BREAST CANCER SCREENING Aunt with breast cancer. TECHNIQUE: Procedure Code: [id number] Modality: MG Procedure: SCRN MAMM (CAD)W/MIGUEL BILAT COMPARISON: Prior exam(s) dated March 15, 2024.. FINDINGS: TISSUE DENSITY: There are scattered areas of fibroglandular density. Bilateral Breast Mammographic Findings: No significant masses, calcifications or other abnormalities are identified. No suspicious masses, areas of developing architectural distortion, or suspicious calcifications. There has been no significant interval change. BI/SCRN MAMM (CAD)W/MIGUEL BILAT IMPRESSION: Stable bilateral screening mammogram. OVERALL FINAL ASSESSMENT BI-RADS 1: NEGATIVE. RECOMMENDATION: Routine annual follow-up in 1 Year Additional Recommendation none A letter with findings and recommendations will be mailed to the patient. Reading Location: [place] [id number]
== END | disposition home or self-care (01) ==
LOC: OPBD 13:52
PROVIDERS: PCP Internal Medicine; Referring Provider Internal Medicine; Visit Provider Internal Medicine
DX: Z12.31 Encounter for screening mammogram for malignant neoplasm of breast (principal); Z78.0 Asymptomatic menopausal state
CPT/HCPCS: 77063; 77067; 77080

== ENCOUNTER → 2025-07-01 | Outpatient (CLI) | payer MEDICARE, OTHER, SELFPAY ==
--- NOTE | 2025-07-01 07:59 | MRI_ITS ---
EXAM: PELVIS (ROUTINE) 07/01/2025 CLINICAL HISTORY: RULL OUT LEFT HAMSTRING. TECHNIQUE: Procedure Code: MRIPEL Modality: MR Procedure: PELVIS (ROUTINE) Multiplanar magnetic resonance images of the pelvis without intravenous contrast. COMPARISON: None available FINDINGS: BOWEL: Diverticulosis without active diverticulitis. Normal appearance of the rectum and anus. BLADDER: Unremarkable. No stone. UTERUS: Status post hysterectomy. Normal appearance of the visible vagina and urethra.. OVARIES: Normal without cysts or masses. No adnexal masses. CUL-DE-SAC: No free fluid. LYMPH NODES: No lymphadenopathy. BONES: No acute fracture or focal osseous lesion. Moderate tendinosis at the insertion of the left hamstrings with no full-thickness tear. Right hamstrings are normal. Status post left hip arthroplasty. No fracture. Mild degenerative changes of the right hip with labral tear superiorly. Right trochanteric bursitis. No abnormal fluid collection. No soft tissue mass. Visible spine: Degenerative disc disease at L4-5 and L5-S1 with bilateral foraminal encroachment. MRI/Pelvis (Routine) IMPRESSION: Moderate tendinosis of the left hamstrings insertion with no full-thickness tea r. Status post left hip arthroplasty. No joint effusion. Small right effusion with moderate osteoarthritis of the right hip and superior labral tear. Right trochanteric bursitis. Diverticulosis without active diverticulitis. Reading Location: [facility]
== END | disposition home or self-care (01) ==
LOC: MRI 07:57
PROVIDERS: PCP Internal Medicine; Referring Provider Anesthesiology; Visit Provider Anesthesiology
DX: M70.72 Other bursitis of hip, left hip (principal)
CPT/HCPCS: 72195